=== PATIENT | male | born 1950 | race Hispanic/Latino ===

== ENCOUNTER 2018-08-23 20:55 | Inpatient (IN) | payer MEDICARE, OTHER ==
[2018-08-23 21:49] VITALS: BMI 26.6
[2018-08-23 22:38] LABS: BASO # 0.02 K/mm3 (0.0-2.0); BASO % 0.2 % (0.0-3.0); EOS % 0.1 % (1.5-5.0); HEMOGLOBIN 10.2 g/dL (14.0-18.0); LYMPH # 0.9 (1.2-3.4); LYMPH % 7.6 % (22.0-35.0); MEAN CELL VOLUME 89.5 fl (80.0-105.0); MEAN CORPUSCULAR HEMOGLOBIN 28.1 pg (25.0-35.0); MEAN CORPUSCULAR HGB CONC 31.4 g/dl (31.0-37.0); MEAN PLATELET VOLUME 9.3 fl (7.0-11.0); MONO # 1.4 (0.1-0.6); MONO % 12.4 % (1.0-6.0); RBC 3.63 10^6/uL (3.5-6.1); RED CELL DISTRIBUTION WIDTH 13.9 % (11.5-14.5); VENOUS BLOOD GAS BASE EXCESS 4.2 mmol/L (0.0-2.0); VENOUS BLOOD GAS PO2 35 mm/Hg (30-55); VENOUS BLOOD PH 7.36 (7.32-7.43); WHITE BLOOD COUNT 11.3 10^3/uL (4.5-11.0)
[2018-08-23 22:46] LABS: INR 1.36; PROTHROMBIN TIME 15.1 SECONDS (9.4-12.5)
[2018-08-23 22:48] LABS: ALB/GLOB RATIO 0.7 (1.1-1.8); ALBUMIN 3.3 g/dL (3.0-4.8); BLOOD UREA NITROGEN 22 mg/dL (7-21); CALCIUM 8.8 mg/dL (8.4-10.5); GFR NON-AFRICAN AMERICAN > 60
[2018-08-23 22:58] LABS: ALT/SGPT 54 U/L (7-56); AST/SGOT 163 U/L (17-59)
[2018-08-23 22:59] LABS: PARTIAL THROMBOPLASTIN TIME 27.9 Seconds (26.9-38.3)
[2018-08-23] MEDS ORDERED: Vancomycin 1gm in NS 250ml 1 GM/250 ML BAG IVPB STA (23:08)
[2018-08-23] MEDS ORDERED: Sodium Chloride 0.9% 1,000 ML IV STA (23:37)
--- NOTE | 2018-08-23 23:47 | ED PDOC ---
Arrival/HPI - General Time Seen by Provider: 08/23/18 21:01 Historian: Patient - History of Present Illness Narrative History of Present Illness (Text): 08/23/18 23:43 68 year old male, whose past medical history includes chronic back pain and vertebral disc disease, presents to the emergency department complaining of infected skin ulcers. Patient states he has not seen his doctor in a number of years. Patient states that he has a history of previous fall weeks ago. Patient states he is able to ambulate but is afraid to for fear of falling. Patient appears mostly bedridden. Patient informs of pain to the sacral and thigh area at ulcer sites. Patient states he has no other medical problems. Patient denies any headache, neck pain, back pain, fever, chills, chest pain, shortness of breath, or any other complaints. Time/Duration: Prior to Arrival, < month Symptom Onset: Gradual Symptom Course: Unchanged Context: Home Past Medical History - Provider Review Nursing Documentation Reviewed: Yes - Cardiac Hx Cardiac Disorders: No Hx Hypertension: No Hx Pacemaker: No - Pulmonary Hx Respiratory Disorders: No Hx Asthma: No Hx Chronic Obstructive Pulmonary Disease (COPD): No Hx Emphysema: No - Neurological HX Cerebrovascular Accident: No Hx Dementia: No Hx Seizures: No - Renal Hx Renal Disorder: No - Hematological/Oncological Hx Cancer: No - Musculoskeletal/Rheumatological Hx Musculoskeletal Disorders: Yes - Gastrointestinal Hx Gastroesophageal Reflux: No - Psychiatric Hx Depression: No Hx Emotional Abuse: No Hx Physical Abuse: No Hx Substance Use: No - Suicidal Assessment Feels Threatened In Home Enviroment: No Family/Social History - Physician Review Nursing Documentation Reviewed: Yes Family/Social History: No Known Family HX Hx Alcohol Use: Yes (socially) Hx Substance Use: No Hx Substance Use Treatment: No Allergies/Home Meds Allergies/Adverse Reactions: Allergies Penicillins Allergy (Verified 08/23/18 21:25) RASH Review of Systems - Physician Review All systems were reviewed & negative as marked: Yes - Review of Systems Constitutional: absent: Fevers Respiratory: absent: SOB Cardiovascular: absent: Chest Pain Musculoskeletal: absent: Back Pain, Neck Pain Skin: Ulcer Neurological: absent: Headache Physical Exam Vital Signs Reviewed: Yes Vital Signs Temp Pulse Resp BP Pulse Ox 08/23/18 22:47 97.9 F 114 H 18 112/60 93 L Temperature: Afebrile Blood Pressure: Normal Pulse: Tachycardic Respiratory Rate: Normal Appearance: Positive for: Non-Toxic, Comfortable, Unkept, Other (poor habitus) Pain Distress: None Mental Status: Positive for: Alert and Oriented X 3 - Systems Exam Head: Present: Atraumatic, Normocephalic Pupils: Present: PERRL Extroacular Muscles: Present: EOMI Conjunctiva: Present: Normal Mouth: Present: Moist Mucous Membranes Neck: Present: Normal Range of Motion Respiratory/Chest: Present: Clear to Auscultation, Good Air Exchange. No: Respiratory Distress, Accessory Muscle Use Cardiovascular: Present: Normal S1, S2, Tachycardic. No: Murmurs Abdomen: No: Tenderness, Distention, Peritoneal Signs Back: Present: Decubitus Ulcer (Sacral) Upper Extremity: Present: Normal Inspection. No: Cyanosis, Edema Lower Extremity: Present: Normal Inspection, Normal ROM, Other (2 large skin decubiti on the posterior thighs bilaterally, both infected with surrounding erythema) Neurological: Present: GCS=15, CN II-XII Intact, Speech Normal Skin: Present: Warm, Dry, Normal Color. No: Rashes Psychiatric: Present: Alert, Oriented x 3, Normal Insight, Normal Concentration Medical Decision Making ED Course and Treatment: 08/23/18 23:52 Impression: 68 year old male presents with ulcers. Plan: -- CT ABD & Pelvis -- CT Lower EXT X2 -- EKG -- Chest X-ray -- Meropenem -- Vncomycin -- Cultures -- Urinalysis -- Reassess and disposition Prior Visits: Notes and results from previous visits were reviewed. Progress Notes: 08/24/18 00:10 Spoke with the clinical medical transcriptionist and Dr Hernandez who accepts patient for admission - Lab Interpretations Lab Results: pO2 35 mm/Hg (30-55) 08/23/18 10:20 VBG pH 7.36 (7.32-7.43) 08/23/18 10:20 VBG pCO2 55.0 (40-60) 08/23/18 10:20 VBG HCO3 31.1 mmol/l (21-28) H 08/23/18 10:20 VBG Total CO2 32.8 mmol.L (22-28) H 08/23/18 10:20 VBG O2 Sat (Calc) 71.4 % (40-65) H 08/23/18 10:20 VBG Base Excess 4.2 mmol/L (0.0-2.0) H 08/23/18 10:20 VBG Potassium 5.1 mmol/L (3.6-5.2) 08/23/18 10:20 Sodium 132.0 mmol/L (132-148) 08/23/18 10:20 Chloride 99.0 mmol/L (98-107) 08/23/18 10:20 Glucose 105 mg/dl (75-110) 08/23/18 10:20 Lactate 1.9 mmol/L (0.7-2.1) 08/23/18 10:20 FiO2 21.0 % 08/23/18 10:20 PT 15.1 SECONDS (9.4-12.5) H 08/23/18 10:20 INR 1.36 08/23/18 10:20 APTT 27.9 Seconds (26.9-38.3) 08/23/18 10:20 Total Bilirubin 0.9 mg/dL (0.2-1.3) 08/23/18 10:20 AST 163 U/L (17-59) H 08/23/18 10:20 ALT 54 U/L (7-56) 08/23/18 10:20 Alkaline Phosphatase 134 U/L (38-126) H 08/23/18 10:20 Total Protein 8.1 g/dL (5.8-8.3) 08/23/18 10:20 Albumin 3.3 g/dL (3.0-4.8) 08/23/18 10:20 Globulin 4.8 gm/dL 08/23/18 10:20 Albumin/Globulin Ratio 0.7 (1.1-1.8) L 08/23/18 10:20 - RAD Interpretation Radiology Orders: 08/23/18 21:37 CHEST PORTABLE [RAD] Stat 08/23/18 23:28 ABD & PELVIS W/O PO OR IV CONT [CT] Stat 08/23/18 23:29 EXT LOWER W/O CONTRAST LEFT [CT] Stat EXT LOWER W/O CONTRAST RIGHT [CT] Stat - Medication Orders Current Medication Orders: Vancomycin HCl (Vancomycin 1gm) 1 gm in 250 mls @ 133.333 mls/hr IVPB STAT STA; Protocol Stop: 08/24/18 01:00 Meropenem (Merrem Iv 1 Gm Premix) 1 gm in 50 mls @ 12.5 mls/hr IVPB ONCE ONE; Protocol Stop: 08/24/18 03:25 Sodium Chloride (Sodium Chloride 0.9%) 1,000 mls @ 100 mls/hr IV .Q10H STA Stop: 08/24/18 09:36 - Scribe Statement The provider has reviewed the documentation as recorded by the Afshanibagueda Forde Provider Scribe Attestation: All medical record entries made by the Afshanibagueda were at my direction and personal ly dictated by me. I have reviewed the chart and agree that the record accurately reflects my personal performance of the history, physical exam, medical decision making, and the department course for this patient. I have also personally directed, reviewed, and agree with the discharge instructions and disposition. Disposition/Present on Arrival - Present on Arrival Any Indicators Present on Arrival: No History of DVT/PE: No History of Uncontrolled Diabetes: No Urinary Catheter: No History of Decub. Ulcer: Yes History Surgical Site Infection Following: None - Disposition Have Diagnosis and Disposition been Completed?: Yes Diagnosis: Cellulitis, Infected decubitus ulcer Disposition: HOSPITALIZED Disposition Time: 23:35 Condition: GOOD
[2018-08-24] MEDS ORDERED: Lactated Ringer's 1,000 ML IV SCH (00:15)
[2018-08-24] MEDS: Meropenem IV 1 gm in NS 1 GM/50 ML BAG IVPB ONE (00:35)
[2018-08-24 01:17] LABS: HDL CHOLESTEROL 26 mg/dL (29-60); URIC ACID 4.6 mg/dL (3.5-8.5)
[2018-08-24 01:25] LABS: TOTAL IRON BINDING CAPACITY 234 ug/dL (261-462)
[2018-08-24 01:27] LABS: LDL CHOLESTEROL 72 mg/dL (0-129)
[2018-08-24 01:33] LABS: % IRON SATURATION 9 % (20-55); IRON 22 ug/dL (45-180)
[2018-08-24 01:36] LABS: FREE T4 1.88 ng/dL (0.78-2.19)
--- NOTE | 2018-08-24 02:08 | CP.PCM.HP ---
History of Present Illness - History of Present Illness History of Present Illness: Medicine History and Physical for Dr. David Dixon, PGY-1 This is a 68 y o male with PMhx chronic back pain and vertebral disc disease who presents to the ED c/o infected skin ulcers and b/l foot pain worsening for the past 3 weeks. States that he has hx of chronic rash and dry skin to his feet and states that in the past they only hurt while walking, now states that that pain is present even at rest with his legs elevated. Denies hx trauma or recent falls that may have elicited symptoms. States pain starts in his feet b/l and travels superiorly up his legs b/l to below the knees. Admits to associated pedal edema that has been worsening for the past several weeks as well. States that he has not followed up with a primary doctor in years. States he only follows with Dr. Magallon regularly for pain management. States he is sedentary for long periods of time at home and does not ambulate that much at home due to the pain. Denies bleeding or pus coming out from affected ulcers on his feet. Denies fever, chills, chest pain, sob, n/v/d/c, abd pain, urinary complaints, or other symptoms. Also admits to decreased PO appetite for the past several days. PMhx: Chronic back pain, vertebral disc disease PSurgHx: L ear surgery in early 30s (pt does not know why he had this procedure done) Allergies: PCN (unknown as per pt) Home meds: Prescribed Morphine by pain management doctor for pain Fam hx: Dad from cancer in lymph nodes Soc hx: Smokes 1/2-1 ppd x 60 y, occasional marijuana use; denies EtOH or other illicit drug use. Not working currently, used to work as social and human services assistant, lives in second floor apartment alone PMD: none Present on Admission - Present on Admission Any Indicators Present on Admission: Yes History of DVT/PE: No History of Uncontrolled Diabetes: No Urinary Catheter: No Decubitus Ulcer Present: Yes Decubitus Ulcer Location: b/l gluteal areas, b/l posterior upper thighs proximal to popliteal region Decubitus Ulcer Stage: III Review of Systems - Constitutional Constitutional: Fatigue. absent: Chills, Fever, Night Sweats - Cardiovascular Cardiovascular: Pedal Edema. absent: Chest Pain, Dyspnea on Exertion - Respiratory Respiratory: absent: Cough, Dyspnea, Dyspnea on Exertion, Wheezing, Chest Congestion - Gastrointestinal Gastrointestinal: absent: Abdominal Pain, Constipation, Diarrhea, Nausea, Vomiting - Genitourinary Genitourinary: absent: Change in Urinary Stream, Difficulty Urinating, Dysuria, Urinary Urgency - Musculoskeletal Musculoskeletal: Arthralgias, Joint Swelling, Radiating Pain into Limb, Stiffness - Integumentary Integumentary: Dry Skin, Rash, Skin Ulcer Past Patient History - Past Social History Chewing Tobacco Use: No - CARDIAC Hx Cardiac Disorders: No Hx Hypertension: No Hx Pacemaker: No - PULMONARY Hx Respiratory Disorders: No Hx Asthma: No Hx Chronic Obstructive Pulmonary Disease (COPD): No Hx Emphysema: No - NEUROLOGICAL HX Cerebrovascular Accident: No Hx Dementia: No Hx Seizures: No - RENAL Hx Chronic Kidney Disease: No - HEMATOLOGICAL/ONCOLOGICAL Hx Cancer: No - MUSCULOSKELETAL/RHEUMATOLOGICAL Hx Musculoskeletal Disorders: Yes - GASTROINTESTINAL Hx Gastroesophageal Reflux: No - PSYCHIATRIC Hx Depression: No Hx Emotional Abuse: No Hx Physical Abuse: No Hx Substance Use: No Meds Allergies/Adverse Reactions: Allergies Allergy/AdvReac Type Severity Reaction Status Date / Time Penicillins Allergy RASH Verified 08/23/18 21:25 Physical Exam - Constitutional Appears: Non-toxic, No Acute Distress, Unkempt - Head Exam Head Exam: ATRAUMATIC, NORMOCEPHALIC - Eye Exam Eye Exam: EOMI, Normal appearance, PERRL - ENT Exam ENT Exam: Mucous Membranes Moist - Respiratory Exam Respiratory Exam: Clear to Auscultation Bilateral, NORMAL BREATHING PATTERN. absent: Rales, Rhonchi, Wheezes - Cardiovascular Exam Cardiovascular Exam: Tachycardia, +S1, +S2. absent: Gallop, Rubs, Systolic Murmur - GI/Abdominal Exam GI & Abdominal Exam: Normal Bowel Sounds, Soft. absent: Distended, Guarding, Organomegaly, Rigid, Tenderness - Extremities Exam Extremities exam: Positive for: full ROM, normal capillary refill, pedal edema, pedal pulses present. Negative for: calf tenderness - Back Exam Back exam: FULL ROM, NORMAL INSPECTION. absent: paraspinal tenderness - Skin Additional comments: Numerous decubitus ulcers noted on skin exam; b/l stage 3 ulcers noted on b/l gluteal areas surrounded by erythema 8-9 cm each in size, clear drainage noted, no pus noted on exam; b/l stage 3 ulcers noted on posterior upper thighs proximal to popliteal region with clear drainage no pus noted; stage 1 pressure ulcers noted PIP of L big toe and ball of medial plantar area of L foot Results - Vital Signs Recent Vital Signs: Last Vital Signs Temp 97.9 F 08/23/18 22:47 Pulse 114 H 08/23/18 22:47 Resp 18 08/23/18 22:47 BP 112/60 08/23/18 22:47 Pulse Ox 93 L 08/23/18 22:47 - Labs Result Diagrams: 08/23/18 22:20 08/23/18 22:20 Labs: Laboratory Results - last 24 hr 08/23/18 08/23/18 08/23/18 22:20 22:20 22:20 WBC 11.3 H RBC 3.63 Hgb 10.2 L Hct 32.5 L MCV 89.5 MCH 28.1 MCHC 31.4 RDW 13.9 Plt Count 349 MPV 9.3 Neut % (Auto) 79.7 H Lymph % (Auto) 7.6 L [place] % (Auto) 12.4 H Eos % (Auto) 0.1 L Baso % (Auto) 0.2 Lymph # (Auto) 0.9 L [place] # (Auto) 1.4 H Eos # (Auto) 0.0 Baso # (Auto) 0.02 Absolute Neuts (auto) 8.98 H Retic Count PT 15.1 H INR 1.36 APTT 27.9 pO2 35 VBG pH 7.36 VBG pCO2 55.0 VBG HCO3 31.1 H VBG Total CO2 32.8 H VBG O2 Sat (Calc) 71.4 H VBG Base Excess 4.2 H VBG Potassium 5.1 Sodium 132.0 Chloride 99.0 Glucose 105 Lactate 1.9 FiO2 21.0 Potassium Carbon Dioxide Anion Gap BUN Creatinine Est GFR ( Amer) Est GFR (Non-Af Amer) Random Glucose Uric Acid Calcium Phosphorus Magnesium Iron TIBC % Saturation Total Bilirubin AST ALT Alkaline Phosphatase Total Creatine Kinase Total Protein Albumin Globulin Albumin/Globulin Ratio Triglycerides Cholesterol LDL Cholesterol Direct HDL Cholesterol Prostate Specific Ag Free T4 Thyroxine (T4) TSH 3rd Generation Venous Blood Potassium 5.1 08/23/18 08/23/18 08/23/18 22:20 22:20 22:20 WBC RBC Hgb Hct MCV MCH MCHC RDW Plt Count MPV Neut % (Auto) Lymph % (Auto) [place] % (Auto) Eos % (Auto) Baso % (Auto) Lymph # (Auto) [place] # (Auto) Eos # (Auto) Baso # (Auto) Absolute Neuts (auto) Retic Count PT INR APTT pO2 VBG pH VBG pCO2 VBG HCO3 VBG Total CO2 VBG O2 Sat (Calc) VBG Base Excess VBG Potassium Sodium 134 Chloride 97 L Glucose Lactate FiO2 Potassium 4.8 Carbon Dioxide 30 Anion Gap 13 BUN 22 H Creatinine 0.6 L Est GFR ( Amer) > 60 Est GFR (Non-Af Amer) > 60 Random Glucose 108 Uric Acid 4.6 Calcium 8.8 Phosphorus 4.2 Magnesium 1.8 Iron 22 L TIBC 234 L % Saturation 9 L Total Bilirubin 0.9 AST 163 H ALT 54 Alkaline Phosphatase 134 H Total Creatine Kinase 24 L Total Protein 8.1 Albumin 3.3 Globulin 4.8 Albumin/Globulin Ratio 0.7 L Triglycerides 65 Cholesterol 116 L LDL Cholesterol Direct 72 HDL Cholesterol 26 L Prostate Specific Ag Free T4 Thyroxine (T4) TSH 3rd Generation Venous Blood Potassium 08/23/18 08/23/18 22:20 22:20 WBC RBC Hgb Hct MCV MCH MCHC RDW Plt Count MPV Neut % (Auto) Lymph % (Auto) [place] % (Auto) Eos % (Auto) Baso % (Auto) Lymph # (Auto) [place] # (Auto) Eos # (Auto) Baso # (Auto) Absolute Neuts (auto) Retic Count 0.73 PT INR APTT pO2 VBG pH VBG pCO2 VBG HCO3 VBG Total CO2 VBG O2 Sat (Calc) VBG Base Excess VBG Potassium Sodium Chloride Glucose Lactate FiO2 Potassium Carbon Dioxide Anion Gap BUN Creatinine Est GFR ( Amer) Est GFR (Non-Af Amer) Random Glucose Uric Acid Calcium Phosphorus Magnesium Iron TIBC % Saturation Total Bilirubin AST ALT Alkaline Phosphatase Total Creatine Kinase Total Protein Albumin Globulin Albumin/Globulin Ratio Triglycerides Cholesterol LDL Cholesterol Direct HDL Cholesterol Prostate Specific Ag < 0.1 Free T4 1.88 Thyroxine (T4) 8.6 TSH 3rd Generation 0.08 L Venous Blood Potassium Assessment & Plan - Assessment and Plan (Free Text) Assessment: This is a 68 y o male with PMhx chronic back pain and vertebral disc disease who presents to the ED c/o infected skin ulcers and b/l foot pain worsening for the past 3 weeks. Admitted for management of cellulitis, infected decubitus ulcers. Plan: Cellulitis -Admit to med/surg -ID consulted (Dr. Siegel), recs appreciated -General Surgery consulted for wound care for infected skin ulcers (Dr. Harvey), recs appreciated -S/p Merrem and Vanco, c/w Merrem q8h IVPB -Tylenol prn for pain and fevers -CT abd/pelvis and LE CT done, f/u results -CXR on admission demonstrates no active disease -WBC 11.3 on admission -Blood, urine, wound cxs pending -HIV, RPR, procal pending -Hepatitis panel ordered -PT eval pending -IVF at 100 cc/hr -Regular diet Transaminitis -AST 163, ALT 54 on admission -Hepatitis panel, HIV pending -CT abd/pelvis results pending Anemia -H/H 10.2/32.5 on admission -Pending B12, folate, iron studies Venous stasis -Etiology unknown at this time, pt denies prior cardiac history -Duplex LE venous and arterial b/l pending PPX: Heparin/Protonix Further recommendations as per Dr. Hernandez, attending physician. Corona Dixon DO PGY-1, Office Support Clerk Pager #[phone]
[2018-08-24] MEDS: Pantoprazole 40 mg EC Tab PO SCH (05:47)
[2018-08-24] MEDS ORDERED: MEROPENEM 500 MG in NS 500 MG/50 ML BAG IVPB SCH (06:00)
--- NOTE | 2018-08-24 08:54 | RAD ---
Date of service: 08/23/2018 HISTORY: Sepsis Patient COMPARISON: No prior. FINDINGS: LUNGS: No active pulmonary disease. PLEURA: No significant pleural effusion identified, no pneumothorax apparent. CARDIOVASCULAR: No aortic atherosclerotic calcification present. Normal cardiac size. No pulmonary vascular congestion. OSSEOUS STRUCTURES: No significant abnormalities. VISUALIZED UPPER ABDOMEN: Normal. OTHER FINDINGS: None. IMPRESSION: No active disease.
--- NOTE | 2018-08-24 10:05 | CP.PCM.CON ---
<Asim Lazo - Last Filed: 08/24/18 16:26> History of Present Illness - History of Present Illness History of Present Illness: General Surgery Consult For Dr. Hravey This is a 68M with chronic pain who presents with back pain and multiple infected decubitus ulcers in different stages of progression. He reports years of leg elevation resulting in chronic back pain that limits his mobility. He reports odorus infected ulcers. Denies chest pain sob or fevers. PMh: Chronic back pain, vertebral disc disease PSH: L ear surgery in early 30s (pt does not know why he had this procedure don e) Allergies: PCN (unknown as per pt) Soc hx: Smokes 1/2-1 ppd x 60 y, occasional marijuana use; denies EtOH or other illicit drug use. Not working currently, used to work as social staff worker, lives in second floor apartment alone Review of Systems - Review of Systems Review of Systems: 12 point review of symptoms conducted and negative except for back pain and multiple ulcersative leasions Past Patient History - Past Social History Chewing Tobacco Use: No - CARDIAC Hx Cardiac Disorders: No Hx Hypertension: No Hx Pacemaker: No - PULMONARY Hx Respiratory Disorders: No Hx Asthma: No Hx Chronic Obstructive Pulmonary Disease (COPD): No Hx Emphysema: No - NEUROLOGICAL HX Cerebrovascular Accident: No Hx Dementia: No Hx Seizures: No - RENAL Hx Chronic Kidney Disease: No - HEMATOLOGICAL/ONCOLOGICAL Hx Cancer: No - INTEGUMENTARY Other/Comment: cellulitis ble - MUSCULOSKELETAL/RHEUMATOLOGICAL Hx Musculoskeletal Disorders: Yes - GASTROINTESTINAL Hx Gastroesophageal Reflux: No - GENITOURINARY/GYNECOLOGICAL Hx Genitourinary Disorders: No - PSYCHIATRIC Hx Depression: No Hx Emotional Abuse: No Hx Physical Abuse: No Hx Substance Use: No - SURGICAL HISTORY Hx Surgeries: No Meds Allergies/Adverse Reactions: Allergies Allergy/AdvReac Type Severity Reaction Status Date / Time Penicillins Allergy RASH Verified 08/23/18 21:25 - Medications Medications: Current Medications Acetaminophen (Tylenol 325mg Tab) 650 mg PO Q6 PRN PRN Reason: TEMP>=99.5F Last Admin: 08/24/18 00:34 Dose: 650 mg Acetaminophen (Tylenol 650 Mg Supp) 650 mg RC Q6H PRN PRN Reason: TEMP>=99.5F Acetylcysteine (Acetylcysteine 20%) 4 ml IH [id number] [facility] Heparin Sodium (Porcine) (Heparin) 5,000 units SC Q8 [facility]; Protocol Last Admin: 08/24/18 05:44 Dose: 5,000 units Meropenem/Sodium Chloride (Merrem Iv 500 Mg/Ns 50 Ml) 500 mg in 50 mls @ 100 mls/hr IVPB Q8 [facility]; Protocol Stop: 08/24/18 14:29 Last Admin: 08/24/18 05:45 Dose: 100 mls/hr Levalbuterol HCl (Xopenex) 0.63 mg IH [id number] [facility] Nicotine (Nicoderm Cq) 1 patch TD DAILY [facility] Ondansetron HCl (Zofran Inj) 4 mg IVP Q4H PRN PRN Reason: Nausea/Vomiting Pantoprazole Sodium (Protonix Ec Tab) 40 mg PO 0600 [facility] Last Admin: 08/24/18 05:47 Dose: 40 mg Polyethylene Glycol (Miralax) 17 gm PO BID [facility] Physical Exam - Constitutional Appears: Non-toxic, No Acute Distress - Head Exam Head Exam: ATRAUMATIC, NORMOCEPHALIC - Eye Exam Eye Exam: EOMI, Normal appearance - ENT Exam ENT Exam: Mucous Membranes Moist - Respiratory Exam Respiratory Exam: NORMAL BREATHING PATTERN - Cardiovascular Exam Cardiovascular Exam: +S1, +S2 - GI/Abdominal Exam GI & Abdominal Exam: Soft. 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, LLE with small stage two ulcers on the hallux, left thigh stage 2 ulcer and stage 4 ulcer and lroight thigh stage 4 ulcer Results - Vital Signs Recent Vital Signs: Last Vital Signs Temp 98.2 F 08/24/18 06:00 Pulse 93 H 08/24/18 06:00 Resp 18 08/24/18 06:00 BP 110/67 08/24/18 06:00 Pulse Ox 96 08/24/18 06:00 - Labs Result Diagrams: 08/23/18 22:20 08/23/18 22:20 Labs: Laboratory Results - last 24 hr 08/23/18 08/23/18 08/23/18 22:20 22:20 22:20 WBC 11.3 H RBC 3.63 Hgb 10.2 L Hct 32.5 L MCV 89.5 MCH 28.1 MCHC 31.4 RDW 13.9 Plt Count 349 MPV 9.3 Neut % (Auto) 79.7 H Lymph % (Auto) 7.6 L [place] % (Auto) 12.4 H Eos % (Auto) 0.1 L Baso % (Auto) 0.2 Lymph # (Auto) 0.9 L [place] # (Auto) 1.4 H Eos # (Auto) 0.0 Baso # (Auto) 0.02 Absolute Neuts (auto) 8.98 H ESR Retic Count PT 15.1 H INR 1.36 APTT 27.9 pO2 35 VBG pH 7.36 VBG pCO2 55.0 VBG HCO3 31.1 H VBG Total CO2 32.8 H VBG O2 Sat (Calc) 71.4 H VBG Base Excess 4.2 H VBG Potassium 5.1 Sodium 132.0 Chloride 99.0 Glucose 105 Lactate 1.9 FiO2 21.0 Potassium Carbon Dioxide Anion Gap BUN Creatinine Est GFR ( Amer) Est GFR (Non-Af Amer) Random Glucose Lactic Acid Uric Acid Calcium Phosphorus Magnesium Iron TIBC % Saturation Total Bilirubin AST ALT Alkaline Phosphatase Total Creatine Kinase Total Protein Albumin Globulin Albumin/Globulin Ratio Triglycerides Cholesterol LDL Cholesterol Direct HDL Cholesterol Prostate Specific Ag Free T4 Thyroxine (T4) TSH 3rd Generation Venous Blood Potassium 5.1 08/23/18 08/23/18 08/23/18 22:20 22:20 22:20 WBC RBC Hgb Hct MCV MCH MCHC RDW Plt Count MPV Neut % (Auto) Lymph % (Auto) [place] % (Auto) Eos % (Auto) Baso % (Auto) Lymph # (Auto) [place] # (Auto) Eos # (Auto) Baso # (Auto) Absolute Neuts (auto) ESR Retic Count PT INR APTT pO2 VBG pH VBG pCO2 VBG HCO3 VBG Total CO2 VBG O2 Sat (Calc) VBG Base Excess VBG Potassium Sodium 134 Chloride 97 L Glucose Lactate FiO2 Potassium 4.8 Carbon Dioxide 30 Anion Gap 13 BUN 22 H Creatinine 0.6 L Est GFR ( Amer) > 60 Est GFR (Non-Af Amer) > 60 Random Glucose 108 Lactic Acid Uric Acid 4.6 Calcium 8.8 Phosphorus 4.2 Magnesium 1.8 Iron 22 L TIBC 234 L % Saturation 9 L Total Bilirubin 0.9 AST 163 H ALT 54 Alkaline Phosphatase 134 H Total Creatine Kinase 24 L Total Protein 8.1 Albumin 3.3 Globulin 4.8 Albumin/Globulin Ratio 0.7 L Triglycerides 65 Cholesterol 116 L LDL Cholesterol Direct 72 HDL Cholesterol 26 L Prostate Specific Ag Free T4 Thyroxine (T4) TSH 3rd Generation Venous Blood Potassium 08/23/18 08/23/18 08/24/18 22:20 22:20 02:00 WBC RBC Hgb Hct MCV MCH MCHC RDW Plt Count MPV Neut % (Auto) Lymph % (Auto) [place] % (Auto) Eos % (Auto) Baso % (Auto) Lymph # (Auto) [place] # (Auto) Eos # (Auto) Baso # (Auto) Absolute Neuts (auto) ESR 110 H Retic Count 0.73 PT INR APTT pO2 VBG pH VBG pCO2 VBG HCO3 VBG Total CO2 VBG O2 Sat (Calc) VBG Base Excess VBG Potassium Sodium Chloride Glucose Lactate FiO2 Potassium Carbon Dioxide Anion Gap BUN Creatinine Est GFR ( Amer) Est GFR (Non-Af Amer) Random Glucose Lactic Acid 1.4 Uric Acid Calcium Phosphorus Magnesium Iron TIBC % Saturation Total Bilirubin AST ALT Alkaline Phosphatase Total Creatine Kinase Total Protein Albumin Globulin Albumin/Globulin Ratio Triglycerides Cholesterol LDL Cholesterol Direct HDL Cholesterol Prostate Specific Ag < 0.1 Free T4 1.88 Thyroxine (T4) 8.6 TSH 3rd Generation 0.08 L Venous Blood Potassium 08/24/18 08/24/18 04:30 08:25 WBC RBC Hgb Hct MCV MCH MCHC RDW Plt Count MPV Neut % (Auto) Lymph % (Auto) [place] % (Auto) Eos % (Auto) Baso % (Auto) Lymph # (Auto) [place] # (Auto) Eos # (Auto) Baso # (Auto) Absolute Neuts (auto) ESR Retic Count PT INR APTT pO2 VBG pH VBG pCO2 VBG HCO3 VBG Total CO2 VBG O2 Sat (Calc) VBG Base Excess VBG Potassium Sodium Chloride Glucose Lactate FiO2 Potassium Carbon Dioxide Anion Gap BUN Creatinine Est GFR ( Amer) Est GFR (Non-Af Amer) Random Glucose Lactic Acid Uric Acid Calcium Phosphorus Magnesium Iron TIBC % Saturation Total Bilirubin AST ALT Alkaline Phosphatase Total Creatine Kinase 22 L < 20 L Total Protein Albumin Globulin Albumin/Globulin Ratio Triglycerides Cholesterol LDL Cholesterol Direct HDL Cholesterol Prostate Specific Ag Free T4 Thyroxine (T4) TSH 3rd Generation Venous Blood Potassium Assessment & Plan - Assessment and Plan (Free Text) Assessment: 68M with multiple decubitus ulcers Frequent position changes Recommend santyl on left thigh decubiti recommend local wound on right posterior thigh decubiti D/W Dr. Wes Lazo PGY3 <Jung Harvey - Last Filed: 08/26/18 10:26> Meds - Medications Medications: Current Medications Acetaminophen (Tylenol 325mg Tab) 650 mg PO Q6 PRN PRN Reason: TEMP>=99.5F Last Admin: 08/25/18 04:15 Dose: 650 mg Acetaminophen (Tylenol 650 Mg Supp) 650 mg RC Q6H PRN PRN Reason: TEMP>=99.5F Acetylcysteine (Acetylcysteine 20%) 4 ml IH [id number] [facility] Last Admin: 08/26/18 07:15 Dose: 4 ml Collagenase (Santyl) 0 gm TOP DAILY [facility] Last Admin: 08/26/18 10:01 Dose: 1 appl Diphenhydramine HCl (Benadryl) 50 mg IVP Q6H PRN PRN Reason: Agitation Heparin Sodium (Porcine) (Heparin) 5,000 units SC Q8 [facility]; Protocol Last Admin: 08/26/18 05:49 Dose: 5,000 units Vancomycin HCl 1.25 gm/ Sodium (Chloride) 250 mls @ 167 mls/hr IVPB Q12 [facility]; Protocol Last Admin: 08/26/18 10:01 Dose: 167 mls/hr Lactated Ringer's (Lactated Ringer's) 1,000 mls @ 100 mls/hr IV .Q10H [facility] Stop: 08/27/18 10:44 Last Admin: 08/26/18 05:49 Dose: 100 mls/hr Iron Sucrose 200 mg/ Sodium (Chloride) 110 mls @ 110 mls/hr IVPB DAILY [facility] Stop: 08/30/18 10:59 Levalbuterol HCl (Xopenex) 0.63 mg IH [id number] [facility] Last Admin: 08/26/18 07:15 Dose: 0.63 mg Lorazepam (Ativan) 1 mg IVP Q6H PRN; Protocol PRN Reason: Anxiety Metoprolol Tartrate (Lopressor) 25 mg PO BRKDIN [facility] Last Admin: 08/26/18 09:35 Dose: 25 mg Morphine Sulfate (Morphine Extended Release Tab) 90 mg PO Q12 [facility] Last Admin: 08/26/18 09:40 Dose: 90 mg Mupirocin (Bactroban Ointment) 0 gm TOP BID [facility] Last Admin: 08/26/18 10:01 Dose: 1 appl Nicotine (Nicoderm Cq) 1 patch TD DAILY [facility] Last Admin: 08/26/18 09:35 Dose: 1 patch Ondansetron HCl (Zofran Inj) 4 mg IVP Q4H PRN PRN Reason: Nausea/Vomiting Pantoprazole Sodium (Protonix Ec Tab) 40 mg PO 0600 [facility] Last Admin: 08/26/18 05:49 Dose: 40 mg Polyethylene Glycol (Miralax) 17 gm PO BID [facility] Last Admin: 08/26/18 09:36 Dose: 17 gm Results - Vital Signs Recent Vital Signs: Last Vital Signs Temp 98.2 F 08/26/18 06:00 Pulse 96 H 08/26/18 09:35 Resp 18 08/26/18 06:00 BP 123/65 08/26/18 09:35 Pulse Ox 98 08/25/18 21:30 - Labs Result Diagrams: 08/26/18 06:50 08/26/18 06:50 Labs: Laboratory Results - last 24 hr 08/24/18 08/24/18 08/25/18 02:00 02:00 08:31 WBC RBC Hgb Hct MCV MCH MCHC RDW Plt Count MPV Neut % (Auto) Lymph % (Auto) [place] % (Auto) Eos % (Auto) Baso % (Auto) Lymph # (Auto) [place] # (Auto) Eos # (Auto) Baso # (Auto) Absolute Neuts (auto) ESR Sodium Potassium Chloride Carbon Dioxide Anion Gap BUN Creatinine Est GFR ( Amer) Est GFR (Non-Af Amer) Random Glucose Calcium Phosphorus Magnesium Iron TIBC % Saturation Erythropoietin 21.3 H Total Bilirubin Direct Bilirubin AST ALT Alkaline Phosphatase Total Protein Albumin Globulin Albumin/Globulin Ratio HIV 1&2 Ag/Ab, 4th Gen Nonreactive Blood Type B POSITIVE Blood Type Confirm Antibody Screen Negative Crossmatch See Detail BBK History Checked No verified bt 08/25/18 08/26/18 08/26/18 10:30 06:50 06:50 WBC 5.4 RBC 3.90 Hgb 10.5 L D Hct 34.8 L MCV 89.2 MCH 26.9 MCHC 30.2 L RDW 14.3 Plt Count 277 MPV 9.4 Neut % (Auto) 56.9 Lymph % (Auto) 14.7 L [place] % (Auto) 12.6 H Eos % (Auto) 15.2 H Baso % (Auto) 0.6 Lymph # (Auto) 0.8 L [place] # (Auto) 0.7 H Eos # (Auto) 0.8 H Baso # (Auto) 0.03 Absolute Neuts (auto) 3.07 ESR Sodium 134 Potassium 5.5 H Chloride 103 Carbon Dioxide 30 Anion Gap 6 L BUN 15 Creatinine 0.7 L Est GFR ( Amer) > 60 Est GFR (Non-Af Amer) > 60 Random Glucose 85 Calcium 8.3 L Phosphorus 3.9 Magnesium 1.8 Iron TIBC % Saturation Erythropoietin Total Bilirubin 0.4 Direct Bilirubin 0.3 AST 51 ALT 25 Alkaline Phosphatase 107 Total Protein 6.0 Albumin 2.5 L Globulin 3.6 Albumin/Globulin Ratio 0.7 L HIV 1&2 Ag/Ab, 4th Gen Blood Type Blood Type Confirm B POSITIVE Antibody Screen Crossmatch BBK History Checked 08/26/18 08/26/18 08:30 08:30 WBC RBC Hgb Hct MCV MCH MCHC RDW Plt Count MPV Neut % (Auto) Lymph % (Auto) [place] % (Auto) Eos % (Auto) Baso % (Auto) Lymph # (Auto) [place] # (Auto) Eos # (Auto) Baso # (Auto) Absolute Neuts (auto) ESR 105 H Sodium Potassium Chloride Carbon Dioxide Anion Gap BUN Creatinine Est GFR ( Amer) Est GFR (Non-Af Amer) Random Glucose Calcium Phosphorus Magnesium Iron 39 L TIBC 194 L % Saturation 20 Erythropoietin Total Bilirubin Direct Bilirubin AST ALT Alkaline Phosphatase Total Protein Albumin Globulin Albumin/Globulin Ratio HIV 1&2 Ag/Ab, 4th Gen Blood Type Blood Type Confirm Antibody Screen Crossmatch BBK History Checked Assessment & Plan - Assessment and Plan (Free Text) Plan: dX MULTIPLE DECUBITI/Drug dependent This consult done under my direct supervision Wilmar Harvey MD FACS
[2018-08-24] MEDS ORDERED: Vancomycin 1.25 GM in Sodium Chloride 0.9% 500 ML IVPB SCH (10:15)
[2018-08-24] MEDS: POLYETHYLENE GLYCOL 3350 17 GM/Dose PACKET PO SCH ×2 (10:32→19:00)
[2018-08-24] MEDS: Morphine 2 mg/ml ISec IVP PRN ×2 (10:34→15:31)
--- NOTE | 2018-08-24 12:06 | CARD ---
APPROVED REPORT Date of service: 08/24/2018 EKG Measurement Heart [id number] <Conclusion> Sinus tachycardia Right bundle branch block Abnormal ECG
[2018-08-24 12:56] LABS: HEPATITIS B SURFACE AG Negative (NEGATIVE)
--- NOTE | 2018-08-24 12:57 | CP.PCM.CON ---
<Kishor Liu - Last Filed: 08/24/18 12:54> History of Present Illness - History of Present Illness History of Present Illness: Podiatry consult note for Dr. Lloyd 68 y/o male with PMHx chronic back pain and vertebral disc disease seen and evaluated for infected skin ulcers and b/l foot pain worsening for the past 3 weeks. Patient states that he has hx of chronic rash and dry skin to his feet and states that in the past they only hurt while walking, now states that that pain is present even at rest with his legs elevated. Patient does not ambulate that much at home due to the pain. Patient lethargic and drowsy when evaluated, and unable to obtain proper history. PMhx: Chronic back pain, vertebral disc disease PSurgHx: L ear surgery in early 30s (pt does not know why he had this procedure done) Allergies: PCN (unknown as per pt) Home meds: Prescribed Morphine by pain management doctor for pain Fam hx: Dad from cancer in lymph nodes Soc hx: Smokes 1/2-1 ppd x 60 y, occasional marijuana use; denies EtOH or other illicit drug use. Not working currently, used to work as psychiatric social worker, lives in second floor apartment alone PMD: none Review of Systems - Review of Systems All systems: reviewed and no additional remarkable complaints except Review of Systems: As per HPI Past Patient History - Past Social History Chewing Tobacco Use: No - CARDIAC Hx Cardiac Disorders: No Hx Hypertension: No Hx Pacemaker: No - PULMONARY Hx Respiratory Disorders: No Hx Asthma: No Hx Chronic Obstructive Pulmonary Disease (COPD): No Hx Emphysema: No - NEUROLOGICAL HX Cerebrovascular Accident: No Hx Dementia: No Hx Seizures: No - RENAL Hx Chronic Kidney Disease: No - HEMATOLOGICAL/ONCOLOGICAL Hx Cancer: No - INTEGUMENTARY Other/Comment: cellulitis ble - MUSCULOSKELETAL/RHEUMATOLOGICAL Hx Musculoskeletal Disorders: Yes - GASTROINTESTINAL Hx Gastroesophageal Reflux: No - GENITOURINARY/GYNECOLOGICAL Hx Genitourinary Disorders: No - PSYCHIATRIC Hx Depression: No Hx Emotional Abuse: No Hx Physical Abuse: No Hx Substance Use: No - SURGICAL HISTORY Hx Surgeries: No Meds Allergies/Adverse Reactions: Allergies Allergy/AdvReac Type Severity Reaction Status Date / Time Penicillins Allergy RASH Verified 08/23/18 21:25 - Medications Medications: Current Medications Acetaminophen (Tylenol 325mg Tab) 650 mg PO Q6 PRN PRN Reason: TEMP>=99.5F Last Admin: 08/24/18 00:34 Dose: 650 mg Acetaminophen (Tylenol 650 Mg Supp) 650 mg RC Q6H PRN PRN Reason: TEMP>=99.5F Acetylcysteine (Acetylcysteine 20%) 4 ml IH [id number] [facility] Heparin Sodium (Porcine) (Heparin) 5,000 units SC Q8 [facility]; Protocol Last Admin: 08/24/18 05:44 Dose: 5,000 units Meropenem/Sodium Chloride (Merrem Iv 500 Mg/Ns 50 Ml) 500 mg in 50 mls @ 100 mls/hr IVPB Q8 [facility]; Protocol Stop: 08/24/18 14:29 Last Admin: 08/24/18 05:45 Dose: 100 mls/hr Vancomycin HCl 1.25 gm/ Sodium (Chloride) 500 mls @ 167 mls/hr IVPB Q12H [facility]; Protocol Levalbuterol HCl (Xopenex) 0.63 mg IH [id number] [facility] Morphine Sulfate (Morphine) 1 mg IVP Q3H PRN PRN Reason: Pain, severe (8-10) Last Admin: 08/24/18 10:34 Dose: 1 mg Nicotine (Nicoderm Cq) 1 patch TD DAILY [facility] Last Admin: 08/24/18 10:33 Dose: 1 patch Ondansetron HCl (Zofran Inj) 4 mg IVP Q4H PRN PRN Reason: Nausea/Vomiting Pantoprazole Sodium (Protonix Ec Tab) 40 mg PO 0600 [facility] Last Admin: 08/24/18 05:47 Dose: 40 mg Polyethylene Glycol (Miralax) 17 gm PO BID [facility] Last Admin: 08/24/18 10:32 Dose: 17 gm Physical Exam - Constitutional Appears: Well, Non-toxic, No Acute Distress - Head Exam Head Exam: ATRAUMATIC, NORMOCEPHALIC - Extremities Exam Additional comments: Bilateral Lower Extremity Exam VASC: DP and PT non-palpable, TG warm to warm bilaterally, significant lymphedema noted bilaterally, non-pitting NEURO: grossly intact DERM: LEFT- 0.5 cm X 0.5 cm wound noted to submetatarsal 1 head, fibrotic base, minimal drainage, no tunneling, tracking or probe to bone, positive malodor, multiple superficial wounds noted to the lateral aspect of the left ankle with granular skin base, no drainage, no probe to bone, no tunneling or tracking, no malodor, chronic skin trophic changes secondary to long standing peripheral vascular disease RIGHT- significant chronic skin trophic changes secondary to long standing peripheral vascular disease ORTHO: pain with range of motion, and on palpation to the feet and legs bialterally - Neurological Exam Neurological exam: Oriented x3 - Psychiatric Exam Psychiatric exam: Normal Affect, Normal Mood Results - Vital Signs Recent Vital Signs: Last Vital Signs Temp 98.2 F 08/24/18 06:00 Pulse 93 H 08/24/18 06:00 Resp 18 08/24/18 06:00 BP 110/67 08/24/18 06:00 Pulse Ox 96 08/24/18 06:00 - Labs Result Diagrams: 08/23/18 22:20 08/23/18 22:20 Labs: Laboratory Results - last 24 hr 08/23/18 08/23/18 08/23/18 22:20 22:20 22:20 WBC 11.3 H RBC 3.63 Hgb 10.2 L Hct 32.5 L MCV 89.5 MCH 28.1 MCHC 31.4 RDW 13.9 Plt Count 349 MPV 9.3 Neut % (Auto) 79.7 H Lymph % (Auto) 7.6 L Ector % (Auto) 12.4 H Eos % (Auto) 0.1 L Baso % (Auto) 0.2 Lymph # (Auto) 0.9 L Ector # (Auto) 1.4 H Eos # (Auto) 0.0 Baso # (Auto) 0.02 Absolute Neuts (auto) 8.98 H ESR Retic Count PT 15.1 H INR 1.36 APTT 27.9 pO2 35 VBG pH 7.36 VBG pCO2 55.0 VBG HCO3 31.1 H VBG Total CO2 32.8 H VBG O2 Sat (Calc) 71.4 H VBG Base Excess 4.2 H VBG Potassium 5.1 Sodium 132.0 Chloride 99.0 Glucose 105 Lactate 1.9 FiO2 21.0 Potassium Carbon Dioxide Anion Gap BUN Creatinine Est GFR ( Amer) Est GFR (Non-Af Amer) Random Glucose Hemoglobin A1c Lactic Acid Uric Acid Calcium Phosphorus Magnesium Iron TIBC % Saturation Total Bilirubin AST ALT Alkaline Phosphatase Total Creatine Kinase C-React Prot High Sens Total Protein Albumin Globulin Albumin/Globulin Ratio Triglycerides Cholesterol LDL Cholesterol Direct HDL Cholesterol Prostate Specific Ag 25-OH Vitamin D Total Procalcitonin Free T4 Thyroxine (T4) TSH 3rd Generation Venous Blood Potassium 5.1 08/23/18 08/23/18 08/23/18 22:20 22:20 22:20 WBC RBC Hgb Hct MCV MCH MCHC RDW Plt Count MPV Neut % (Auto) Lymph % (Auto) Ector % (Auto) Eos % (Auto) Baso % (Auto) Lymph # (Auto) Ector # (Auto) Eos # (Auto) Baso # (Auto) Absolute Neuts (auto) ESR Retic Count PT INR APTT pO2 VBG pH VBG pCO2 VBG HCO3 VBG Total CO2 VBG O2 Sat (Calc) VBG Base Excess VBG Potassium Sodium 134 Chloride 97 L Glucose Lactate FiO2 Potassium 4.8 Carbon Dioxide 30 Anion Gap 13 BUN 22 H Creatinine 0.6 L Est GFR ( Amer) > 60 Est GFR (Non-Af Amer) > 60 Random Glucose 108 Hemoglobin A1c Lactic Acid Uric Acid 4.6 Calcium 8.8 Phosphorus 4.2 Magnesium 1.8 Iron 22 L TIBC 234 L % Saturation 9 L Total Bilirubin 0.9 AST 163 H ALT 54 Alkaline Phosphatase 134 H Total Creatine Kinase 24 L C-React Prot High Sens Total Protein 8.1 Albumin 3.3 Globulin 4.8 Albumin/Globulin Ratio 0.7 L Triglycerides 65 Cholesterol 116 L LDL Cholesterol Direct 72 HDL Cholesterol 26 L Prostate Specific Ag 25-OH Vitamin D Total Procalcitonin Free T4 Thyroxine (T4) TSH 3rd Generation Venous Blood Potassium 08/23/18 08/23/18 08/24/18 22:20 22:20 02:00 WBC RBC Hgb Hct MCV MCH MCHC RDW Plt Count MPV Neut % (Auto) Lymph % (Auto) Ector % (Auto) Eos % (Auto) Baso % (Auto) Lymph # (Auto) Ector # (Auto) Eos # (Auto) Baso # (Auto) Absolute Neuts (auto) ESR 110 H Retic Count 0.73 PT INR APTT pO2 VBG pH VBG pCO2 VBG HCO3 VBG Total CO2 VBG O2 Sat (Calc) VBG Base Excess VBG Potassium Sodium Chloride Glucose Lactate FiO2 Potassium Carbon Dioxide Anion Gap BUN Creatinine Est GFR ( Amer) Est GFR (Non-Af Amer) Random Glucose Hemoglobin A1c Lactic Acid Uric Acid Calcium Phosphorus Magnesium Iron TIBC % Saturation Total Bilirubin AST ALT Alkaline Phosphatase Total Creatine Kinase C-React Prot High Sens > 15.00 H Total Protein Albumin Globulin Albumin/Globulin Ratio Triglycerides Cholesterol LDL Cholesterol Direct HDL Cholesterol Prostate Specific Ag < 0.1 25-OH Vitamin D Total Procalcitonin 0.14 L Free T4 1.88 Thyroxine (T4) 8.6 TSH 3rd Generation 0.08 L Venous Blood Potassium 08/24/18 08/24/18 08/24/18 02:00 02:00 02:00 WBC RBC Hgb Hct MCV MCH MCHC RDW Plt Count MPV Neut % (Auto) Lymph % (Auto) Ector % (Auto) Eos % (Auto) Baso % (Auto) Lymph # (Auto) Ector # (Auto) Eos # (Auto) Baso # (Auto) Absolute Neuts (auto) ESR Retic Count PT INR APTT pO2 VBG pH VBG pCO2 VBG HCO3 VBG Total CO2 VBG O2 Sat (Calc) VBG Base Excess VBG Potassium Sodium Chloride Glucose Lactate FiO2 Potassium Carbon Dioxide Anion Gap BUN Creatinine Est GFR ( Amer) Est GFR (Non-Af Amer) Random Glucose Hemoglobin A1c 6.4 Lactic Acid 1.4 Uric Acid Calcium Phosphorus Magnesium Iron TIBC % Saturation Total Bilirubin AST ALT Alkaline Phosphatase Total Creatine Kinase C-React Prot High Sens Total Protein Albumin Globulin Albumin/Globulin Ratio Triglycerides Cholesterol LDL Cholesterol Direct HDL Cholesterol Prostate Specific Ag 25-OH Vitamin D Total 19.8 L Procalcitonin Free T4 Thyroxine (T4) TSH 3rd Generation Venous Blood Potassium 08/24/18 08/24/18 04:30 08:25 WBC RBC Hgb Hct MCV MCH MCHC RDW Plt Count MPV Neut % (Auto) Lymph % (Auto) Ector % (Auto) Eos % (Auto) Baso % (Auto) Lymph # (Auto) Ector # (Auto) Eos # (Auto) Baso # (Auto) Absolute Neuts (auto) ESR Retic Count PT INR APTT pO2 VBG pH VBG pCO2 VBG HCO3 VBG Total CO2 VBG O2 Sat (Calc) VBG Base Excess VBG Potassium Sodium Chloride Glucose Lactate FiO2 Potassium Carbon Dioxide Anion Gap BUN Creatinine Est GFR ( Amer) Est GFR (Non-Af Amer) Random Glucose Hemoglobin A1c Lactic Acid Uric Acid Calcium Phosphorus Magnesium Iron TIBC % Saturation Total Bilirubin AST ALT Alkaline Phosphatase Total Creatine Kinase 22 L < 20 L C-React Prot High Sens Total Protein Albumin Globulin Albumin/Globulin Ratio Triglycerides Cholesterol LDL Cholesterol Direct HDL Cholesterol Prostate Specific Ag 25-OH Vitamin D Total Procalcitonin Free T4 Thyroxine (T4) TSH 3rd Generation Venous Blood Potassium Assessment & Plan - Assessment and Plan (Free Text) Assessment: 68 y/o male patient seen and evaluated for left lower extremity wound, and bilateral LE venous stasis dermatitis Plan: Patient seen and evaluated Discussed in detail with Dr. Lloyd Afebrile, positive leukocytosis of 11.3 Bilateral foot x-ray ordered Arterial duplex studies ordered Vascular consult placed, recommendations appreciated Left foot MRI ordered to r/o osteomyelitis Obtained Left foot wound cultures Continue IV Abx Infection Disease consult, recommendations appreciated Wound cleansed with saline and dressed with maxorb, ABD, DSD Thank you for the consult Podiatry will continue to follow patient while in house - Date & Time Date: 08/24/18 Time: 13:17 <Kvng Lloyd - Last Filed: 08/24/18 16:20> Meds - Medications Medications: Current Medications Acetaminophen (Tylenol 325mg Tab) 650 mg PO Q6 PRN PRN Reason: TEMP>=99.5F Last Admin: 08/24/18 00:34 Dose: 650 mg Acetaminophen (Tylenol 650 Mg Supp) 650 mg RC Q6H PRN PRN Reason: TEMP>=99.5F Acetylcysteine (Acetylcysteine 20%) 4 ml IH [id number] [facility] Last Admin: 08/24/18 13:08 Dose: 4 ml Heparin Sodium (Porcine) (Heparin) 5,000 units SC Q8 [facility]; Protocol Last Admin: 08/24/18 15:07 Dose: 5,000 units Vancomycin HCl 1.25 gm/ Sodium (Chloride) 250 mls @ 167 mls/hr IVPB Q12 [facility]; Protocol Levalbuterol HCl (Xopenex) 0.63 mg IH [id number] [facility] Last Admin: 08/24/18 13:09 Dose: 0.63 mg Morphine Sulfate (Morphine) 1 mg IVP Q3H PRN PRN Reason: Pain, severe (8-10) Last Admin: 08/24/18 15:31 Dose: 1 mg Nicotine (Nicoderm Cq) 1 patch TD DAILY [facility] Last Admin: 08/24/18 10:33 Dose: 1 patch Ondansetron HCl (Zofran Inj) 4 mg IVP Q4H PRN PRN Reason: Nausea/Vomiting Pantoprazole Sodium (Protonix Ec Tab) 40 mg PO 0600 [facility] Last Admin: 08/24/18 05:47 Dose: 40 mg Polyethylene Glycol (Miralax) 17 gm PO BID [facility] Last Admin: 08/24/18 10:32 Dose: 17 gm Results - Vital Signs Recent Vital Signs: Last Vital Signs Temp 98.2 F 08/24/18 06:00 Pulse 93 H 08/24/18 06:00 Resp 18 08/24/18 06:00 BP 110/67 08/24/18 06:00 Pulse Ox 96 08/24/18 06:00 - Labs Result Diagrams: 08/23/18 22:20 08/23/18 22:20 Labs: Laboratory Results - last 24 hr 08/23/18 08/23/18 08/23/18 22:20 22:20 22:20 WBC 11.3 H RBC 3.63 Hgb 10.2 L Hct 32.5 L MCV 89.5 MCH 28.1 MCHC 31.4 RDW 13.9 Plt Count 349 MPV 9.3 Neut % (Auto) 79.7 H Lymph % (Auto) 7.6 L Ector % (Auto) 12.4 H Eos % (Auto) 0.1 L Baso % (Auto) 0.2 Lymph # (Auto) 0.9 L Ector # (Auto) 1.4 H Eos # (Auto) 0.0 Baso # (Auto) 0.02 Absolute Neuts (auto) 8.98 H ESR Retic Count PT 15.1 H INR 1.36 APTT 27.9 pO2 35 VBG pH 7.36 VBG pCO2 55.0 VBG HCO3 31.1 H VBG Total CO2 32.8 H VBG O2 Sat (Calc) 71.4 H VBG Base Excess 4.2 H VBG Potassium 5.1 Sodium 132.0 Chloride 99.0 Glucose 105 Lactate 1.9 FiO2 21.0 Potassium Carbon Dioxide Anion Gap BUN Creatinine Est GFR ( Amer) Est GFR (Non-Af Amer) Random Glucose Hemoglobin A1c Lactic Acid Uric Acid Calcium Phosphorus Magnesium Iron TIBC % Saturation Ferritin Total Bilirubin AST ALT Alkaline Phosphatase Total Creatine Kinase C-React Prot High Sens Total Protein Albumin Globulin Albumin/Globulin Ratio Triglycerides Cholesterol LDL Cholesterol Direct HDL Cholesterol Prostate Specific Ag Vitamin B12 25-OH Vitamin D Total Folate Procalcitonin Free T4 Thyroxine (T4) TSH 3rd Generation Venous Blood Potassium 5.1 RPR Hepatitis A IgM Ab Hep Bs Antigen Hep B Core IgM Ab Hepatitis C Antibody 08/23/18 08/23/18 08/23/18 22:20 22:20 22:20 WBC RBC Hgb Hct MCV MCH MCHC RDW Plt Count MPV Neut % (Auto) Lymph % (Auto) Ector % (Auto) Eos % (Auto) Baso % (Auto) Lymph # (Auto) Ector # (Auto) Eos # (Auto) Baso # (Auto) Absolute Neuts (auto) ESR Retic Count PT INR APTT pO2 VBG pH VBG pCO2 VBG HCO3 VBG Total CO2 VBG O2 Sat (Calc) VBG Base Excess VBG Potassium Sodium 134 Chloride 97 L Glucose Lactate FiO2 Potassium 4.8 Carbon Dioxide 30 Anion Gap 13 BUN 22 H Creatinine 0.6 L Est GFR ( Amer) > 60 Est GFR (Non-Af Amer) > 60 Random Glucose 108 Hemoglobin A1c Lactic Acid Uric Acid 4.6 Calcium 8.8 Phosphorus 4.2 Magnesium 1.8 Iron 22 L TIBC 234 L % Saturation 9 L Ferritin 324.0 Total Bilirubin 0.9 AST 163 H ALT 54 Alkaline Phosphatase 134 H Total Creatine Kinase 24 L C-React Prot High Sens Total Protein 8.1 Albumin 3.3 Globulin 4.8 Albumin/Globulin Ratio 0.7 L Triglycerides 65 Cholesterol 116 L LDL Cholesterol Direct 72 HDL Cholesterol 26 L Prostate Specific Ag Vitamin B12 600 25-OH Vitamin D Total Folate > 20.0 Procalcitonin Free T4 Thyroxine (T4) TSH 3rd Generation Venous Blood Potassium RPR Hepatitis A IgM Ab Hep Bs Antigen Hep B Core IgM Ab Hepatitis C Antibody 08/23/18 08/23/18 08/24/18 22:20 22:20 02:00 WBC RBC Hgb Hct MCV MCH MCHC RDW Plt Count MPV Neut % (Auto) Lymph % (Auto) Ector % (Auto) Eos % (Auto) Baso % (Auto) Lymph # (Auto) Ector # (Auto) Eos # (Auto) Baso # (Auto) Absolute Neuts (auto) ESR 110 H Retic Count 0.73 PT INR APTT pO2 VBG pH VBG pCO2 VBG HCO3 VBG Total CO2 VBG O2 Sat (Calc) VBG Base Excess VBG Potassium Sodium Chloride Glucose Lactate FiO2 Potassium Carbon Dioxide Anion Gap BUN Creatinine Est GFR ( Amer) Est GFR (Non-Af Amer) Random Glucose Hemoglobin A1c Lactic Acid Uric Acid Calcium Phosphorus Magnesium Iron TIBC % Saturation Ferritin Total Bilirubin AST ALT Alkaline Phosphatase Total Creatine Kinase C-React Prot High Sens > 15.00 H Total Protein Albumin Globulin Albumin/Globulin Ratio Triglycerides Cholesterol LDL Cholesterol Direct HDL Cholesterol Prostate Specific Ag < 0.1 Vitamin B12 25-OH Vitamin D Total Folate Procalcitonin Free T4 1.88 Thyroxine (T4) 8.6 TSH 3rd Generation 0.08 L Venous Blood Potassium RPR Hepatitis A IgM Ab Negative Hep Bs Antigen Negative Hep B Core IgM Ab Negative Hepatitis C Antibody Negative 08/24/18 08/24/18 08/24/18 02:00 02:00 02:00 WBC RBC Hgb Hct MCV MCH MCHC RDW Plt Count MPV Neut % (Auto) Lymph % (Auto) Ector % (Auto) Eos % (Auto) Baso % (Auto) Lymph # (Auto) Ector # (Auto) Eos # (Auto) Baso # (Auto) Absolute Neuts (auto) ESR Retic Count PT INR APTT pO2 VBG pH VBG pCO2 VBG HCO3 VBG Total CO2 VBG O2 Sat (Calc) VBG Base Excess VBG Potassium Sodium Chloride Glucose Lactate FiO2 Potassium Carbon Dioxide Anion Gap BUN Creatinine Est GFR ( Amer) Est GFR (Non-Af Amer) Random Glucose Hemoglobin A1c Lactic Acid 1.4 Uric Acid Calcium Phosphorus Magnesium Iron TIBC % Saturation Ferritin Total Bilirubin AST ALT Alkaline Phosphatase Total Creatine Kinase C-React Prot High Sens Total Protein Albumin Globulin Albumin/Globulin Ratio Triglycerides Cholesterol LDL Cholesterol Direct HDL Cholesterol Prostate Specific Ag Vitamin B12 25-OH Vitamin D Total Folate Procalcitonin 0.14 L Free T4 Thyroxine (T4) TSH 3rd Generation Venous Blood Potassium RPR Nonreactive Hepatitis A IgM Ab Hep Bs Antigen Hep B Core IgM Ab Hepatitis C Antibody 08/24/18 08/24/18 08/24/18 02:00 02:00 04:30 WBC RBC Hgb Hct MCV MCH MCHC RDW Plt Count MPV Neut % (Auto) Lymph % (Auto) Ector % (Auto) Eos % (Auto) Baso % (Auto) Lymph # (Auto) Ector # (Auto) Eos # (Auto) Baso # (Auto) Absolute Neuts (auto) ESR Retic Count PT INR APTT pO2 VBG pH VBG pCO2 VBG HCO3 VBG Total CO2 VBG O2 Sat (Calc) VBG Base Excess VBG Potassium Sodium Chloride Glucose Lactate FiO2 Potassium Carbon Dioxide Anion Gap BUN Creatinine Est GFR ( Amer) Est GFR (Non-Af Amer) Random Glucose Hemoglobin A1c 6.4 Lactic Acid Uric Acid Calcium Phosphorus Magnesium Iron TIBC % Saturation Ferritin Total Bilirubin AST ALT Alkaline Phosphatase Total Creatine Kinase 22 L C-React Prot High Sens Total Protein Albumin Globulin Albumin/Globulin Ratio Triglycerides Cholesterol LDL Cholesterol Direct HDL Cholesterol Prostate Specific Ag Vitamin B12 25-OH Vitamin D Total 19.8 L Folate Procalcitonin Free T4 Thyroxine (T4) TSH 3rd Generation Venous Blood Potassium RPR Hepatitis A IgM Ab Hep Bs Antigen Hep B Core IgM Ab Hepatitis C Antibody 08/24/18 08:25 WBC RBC Hgb Hct MCV MCH MCHC RDW Plt Count MPV Neut % (Auto) Lymph % (Auto) Ector % (Auto) Eos % (Auto) Baso % (Auto) Lymph # (Auto) Ector # (Auto) Eos # (Auto) Baso # (Auto) Absolute Neuts (auto) ESR Retic Count PT INR APTT pO2 VBG pH VBG pCO2 VBG HCO3 VBG Total CO2 VBG O2 Sat (Calc) VBG Base Excess VBG Potassium Sodium Chloride Glucose Lactate FiO2 Potassium Carbon Dioxide Anion Gap BUN Creatinine Est GFR ( Amer) Est GFR (Non-Af Amer) Random Glucose Hemoglobin A1c Lactic Acid Uric Acid Calcium Phosphorus Magnesium Iron TIBC % Saturation Ferritin Total Bilirubin AST ALT Alkaline Phosphatase Total Creatine Kinase < 20 L C-React Prot High Sens Total Protein Albumin Globulin Albumin/Globulin Ratio Triglycerides Cholesterol LDL Cholesterol Direct HDL Cholesterol Prostate Specific Ag Vitamin B12 25-OH Vitamin D Total Folate Procalcitonin Free T4 Thyroxine (T4) TSH 3rd Generation Venous Blood Potassium RPR Hepatitis A IgM Ab Hep Bs Antigen Hep B Core IgM Ab Hepatitis C Antibody Attending/Attestation - Attestation I have personally seen and examined this patient.: Yes I have fully participated in the care of the patient.: Yes I have reviewed all pertinent clinical information: Yes
--- NOTE | 2018-08-24 13:00 | CT ---
Date of service: 08/24/2018 PROCEDURE: CT Abdomen and Pelvis without intravenous contrast HISTORY: sacral ulcer/skin ulcers COMPARISON: None. TECHNIQUE: Without contrast.. Contrast dose: Radiation dose: Total exam DLP = 619.75 mGy-cm. This CT exam was performed using one or more of the following dose reduction techniques: Automated exposure control, adjustment of the mA and/or kV according to patient size, and/or use of iterative reconstruction technique. FINDINGS: LOWER THORAX: Infiltrate in the left lower lobe, probable pneumonia. There is a small amount of fluid in the right minor fissure. LIVER: Unremarkable. No gross lesion or ductal dilatation. GALLBLADDER AND BILE DUCTS: Unremarkable. PANCREAS: Unremarkable. No gross lesion or ductal dilatation. SPLEEN: Multiple splenic granulomas ADRENALS: Unremarkable. No mass. KIDNEYS AND URETERS: Unremarkable. No hydronephrosis. No solid mass. VASCULATURE: Unremarkable. No aortic aneurysm. No aortic atherosclerotic calcification or mural plaque present. BOWEL: Unremarkable. No obstruction. No gross mural thickening. APPENDIX: Unremarkable. Normal appendix. PERITONEUM: Unremarkable. No free fluid. No free air. LYMPH NODES: Unremarkable. No enlarged lymph nodes. BLADDER: Unremarkable. REPRODUCTIVE: Unremarkable. BONES: Severe degenerative changes in both hips. OTHER FINDINGS: There is a soft tissue ulcer in the right gluteal soft tissues that extends to the ischial tuberosity. Bilateral ischial osteophytes are seen. There is no bony destruction to suggest acute osteomyelitis. The report concurs with the preliminary [facility] report IMPRESSION: There is a soft tissue ulcer in the right gluteal soft tissues that extends to the ischial tuberosity. Bilateral ischial osteophytes are seen. There is no bony destruction to suggest acute osteomyelitis.
[2018-08-24 13:01] LABS: HEPATITIS A IGM NEGATIVE (NEGATIVE); HEPATITIS B CORE AB NEGATIVE (NEGATIVE)
[2018-08-24] MEDS: Acetylcysteine 20% Inhal Soln (4ml) IH SCH ×2 (13:08→19:19)
[2018-08-24] MEDS: Levalbuterol 0.63 MG/3 ML Inhal Soln UD IH SCH ×2 (13:09→19:20)
[2018-08-24 13:13] LABS: HEPATITIS C ANTIBODY NEGATIVE (NEGATIVE)
--- NOTE | 2018-08-24 13:16 | CT ---
Date of service: 08/24/2018 PROCEDURE: CT bilateral lower extremity HISTORY: ulcer/leg pain COMPARISON: Not available TECHNIQUE: 2.5 mm contiguous axial sections were acquired from the mid pelvis through the hips, lower extremities and ankle and feet. Sagittal and coronal images were reformatted from the axial scan No intravenous contrast material was administered. Total exam DLP: 772.51 mGy-cm This CT exam was performed using 1 or more of the following dose reduction techniques: Automated exposure control, adjustment of the mA and/or kV according to patient size, and/or use of iterative reconstruction technique. FINDINGS: There is no acute fracture. There is an old healed fracture of the mid right tibial diaphysis with minimal resulting deformity. 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 No other lytic or blastic osseous lesion. No osseous erosion or periosteal reaction is noted. There is a decubitus ulcer subjacent to the right ischial tuberosity. There is probable cellulitis of the posterior right thigh. There is probable cellulitis of the posterior and lateral left thigh and gluteal region with stranding of the subcutaneous fat bilaterally, left greater than right. There is no evidence of abscess. 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 Flattening and remodeling of the femoral heads is noted. Visualized soft tissues of the inferior pelvis are unremarkable IMPRESSION: No radiographic evidence of osteomyelitis. Right gluteal decubitus ulcer. No abscess bilateral cellulitis of the gluteal region and thigh without evidence of abscess.
[2018-08-24 13:30] LABS: FOLATE > 20.0 ng/mL
--- NOTE | 2018-08-24 13:32 | PN ---
DATE: 08/24/2018 SUBJECTIVE: The patient is seen now in room 562, bed 2. The patient was seen yesterday in bed 11 in the emergency room. The patient is seen lying in the bed. The patient has poor hygiene. PHYSICAL EXAMINATION: VITAL SIGNS: T-max 98.3, heart rate 93, The patient is seen lying in the bed in room 562. Blood pressure 110/67, 111/62, 112/73; respirations 18; O2 sat 94-96% on room air. The patient is seen sitting up in the bed. HEENT AND NECK: Head: Normocephalic, atraumatic. HEENT examination shows pinkish pale conjunctivae. Dry oral mucosa. Poor hygiene. No neck rigidity. CHEST: Kyphosis. LUNGS: Show occasional rhonchi upper lung redman. CARDIOVASCULAR: S1, S2, regular rhythm. ABDOMEN: Soft. Positive bowel sounds. GENITALIA: Male. RECTAL: Deferred. EXTREMITIES: Positive skin changes of the lower extremity noted with chronic venous stasis ulceration noted and dystrophic nodes noted. The patient also has multiple decubitus ulcerations on the gluteal areas and the back with erythema. The patient also has ulcers of the posterior upper thigh and popliteal region of the upper and lower thigh. The patient is noted to have bilateral lower extremity venous ulceration, superficial with skin changes. Gait examination is not tested. MUSCULOSKELETAL: Shows a body mass index of 26. DIAGNOSTICS: CBC from today is pending despite being ordered. The patient's morning labs are pending. All the lab since yesterday was reviewed. IMPRESSION AND PLAN 1. Sacral decubitus ulceration and bilateral posterior thigh ulceration versus superficial abscess. 2. Bilateral lower extremity venous stasis ulceration. 3. Hypotension. 4. Tachycardia. 5. Questionable systemic inflammatory response syndrome. 6. Leukocytosis with granulocytosis. 7. Elevated erythrocyte sedimentation rate of 110. 8. Possible iron-deficiency anemia. 9. Transaminitis. 10. Poor personal hygiene. 11. Possible iron-deficiency anemia. 12. Questionable osteomyelitis of the right ischial tuberosity with heterogeneous periosteal reaction and full-thickness soft tissue ulceration of the right gluteal area. 13. Osteopenia. 14. Moderate to severe chronic degenerative joint disease. 15. Spondylosis of the spine. 16. Bilateral lower extremity venous stasis. 17. 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 18. Deconditioning. 19. Gait dysfunction. 20. Dystrophic toenails of bilateral feet. 21. Questionable left lower lobe pneumonia worse with opacities and airspace infiltration, possible aspiration pneumonia. 22. Calcified splenic granuloma. 23. Fecal stasis. 24. Colonic diverticulosis. 25. Osteopenia. 26. Degenerative joint disease of the spine. 27. Possible left lower lobe aspiration pneumonia. 28. Right gluteal ulcer and cellulitis. 29. History of chronic back pain. 30. Degenerative disc disease of the spine. 31. History of chronic venous stasis ulceration of the lower extremity. 32. 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 33. History of nicotine and marijuana use. 34. Sacral and gluteal decubitus ulceration. 35. Bilateral posterior thigh cellulitis and ulceration. PLAN: At this time, the patient is awaiting for further evaluation by Infectious Disease and Podiatry. At present, the patient has been admitted to [facility]. Awaiting Infectious Disease, Podiatry evaluation and Surgery evaluation. Hepatitis panel has been ordered. B12, folate, repeat serial labs ordered. Repeat CPK ordered. Hemoglobin A1c in the morning. HIV, hepatitis serologies ordered. Blood and urine cultures, wound cultures ordered. Consultation Surgery, Infectious Disease, Podiatry. Procalcitonin level ordered. RPR ordered. CURRENT MEDICATIONS: Mucomyst, Xopenex nebulizer treatment every 6 hours, heparin 5000 subcutaneous every 8 hours. The patient is on Ringer's lactate at 100 ml an hour. The patient is on meropenem 500 IV every 8 hours, MiraLax 17 g twice a day, nicotine patch 21 mg daily, Protonix 40 mg daily. The patient is not on Ringer's lactate. The patient is on normal saline at 100 ml an hour, Tylenol p.o. suppository every 6 hours p.r.n., the patient received a dose of vancomycin 1 g in the ER. The patient is on Zofran 4 mg IV every 4 hours. Venous and arterial Doppler has been ordered. EKG has been ordered. The patient is on regular diet. Physical therapy, occupational therapy, stool for occult blood ordered.. The patient will be ordered an MRI of the pelvis and hips. MRI of the pelvis will be ordered. MRI of the pelvis has been ordered for evaluation of possible ischial osteomyelitis.. At present, the patient has been ordered serial repeat labs. Further management will be depended upon the patient's clinical condition, hemodynamic status and as per the patient's response to therapeutic intervention, as per the patient's diagnostic test results, and as per recommendation by all the physicians involved in the care of the patient. The patient also has been ordered out of bed to chair, physical therapy, occupational therapy. Dictated and electronically signed, not read. Carlos Hernandez MD
--- NOTE | 2018-08-24 14:40 | CP.PCM.CON ---
<Juancho Vides - Last Filed: 08/24/18 14:42> History of Present Illness - History of Present Illness History of Present Illness: Infectious disease consult note: 68-year-old male with past medical history of chronic back pain, vertebral disc disease, presents to the ED with bilateral foot pain and skin ulcers. Patient states that these have been present for months however recently has become more painful. Patient states that he has pain while walking and it is even now during rest. He also complains about increasing drainage from the wounds. He denies seeing any quality audit representative as an outpatient. Patient denies any trauma or falls. He denies any fevers or chills. Infectious disease was consulted for infected ulcerdecubiti. 12 point ROS performed and negative other than stated above PMH: As above PSH: Ear surgery when he was in his 30s Allergies: Penicillin Medications: As per EMR SH: Active smoker of 1 pack/day for 60 years, social marijuana use, denies any drinking FH: Noncontributory Review of Systems - Review of Systems All systems: reviewed and no additional remarkable complaints except Past Patient History - Past Social History Chewing Tobacco Use: No - CARDIAC Hx Cardiac Disorders: No Hx Hypertension: No Hx Pacemaker: No - PULMONARY Hx Respiratory Disorders: No Hx Asthma: No Hx Chronic Obstructive Pulmonary Disease (COPD): No Hx Emphysema: No - NEUROLOGICAL HX Cerebrovascular Accident: No Hx Dementia: No Hx Seizures: No - RENAL Hx Chronic Kidney Disease: No - HEMATOLOGICAL/ONCOLOGICAL Hx Cancer: No - INTEGUMENTARY Other/Comment: cellulitis ble - MUSCULOSKELETAL/RHEUMATOLOGICAL Hx Musculoskeletal Disorders: Yes - GASTROINTESTINAL Hx Gastroesophageal Reflux: No - GENITOURINARY/GYNECOLOGICAL Hx Genitourinary Disorders: No - PSYCHIATRIC Hx Depression: No Hx Emotional Abuse: No Hx Physical Abuse: No Hx Substance Use: No - SURGICAL HISTORY Hx Surgeries: No Meds Allergies/Adverse Reactions: Allergies Allergy/AdvReac Type Severity Reaction Status Date / Time Penicillins Allergy RASH Verified 08/23/18 21:25 - Medications Medications: Current Medications Acetaminophen (Tylenol 325mg Tab) 650 mg PO Q6 PRN PRN Reason: TEMP>=99.5F Last Admin: 08/24/18 00:34 Dose: 650 mg Acetaminophen (Tylenol 650 Mg Supp) 650 mg RC Q6H PRN PRN Reason: TEMP>=99.5F Acetylcysteine (Acetylcysteine 20%) 4 ml IH [id number] [facility] Last Admin: 08/24/18 13:08 Dose: 4 ml Heparin Sodium (Porcine) (Heparin) 5,000 units SC Q8 [facility]; Protocol Last Admin: 08/24/18 05:44 Dose: 5,000 units Vancomycin HCl 1.25 gm/ Sodium (Chloride) 500 mls @ 167 mls/hr IVPB Q12H [facility]; Protocol Last Admin: 08/24/18 13:11 Dose: 167 mls/hr Levalbuterol HCl (Xopenex) 0.63 mg IH [id number] [facility] Last Admin: 08/24/18 13:09 Dose: 0.63 mg Morphine Sulfate (Morphine) 1 mg IVP Q3H PRN PRN Reason: Pain, severe (8-10) Last Admin: 08/24/18 10:34 Dose: 1 mg Nicotine (Nicoderm Cq) 1 patch TD DAILY [facility] Last Admin: 08/24/18 10:33 Dose: 1 patch Ondansetron HCl (Zofran Inj) 4 mg IVP Q4H PRN PRN Reason: Nausea/Vomiting Pantoprazole Sodium (Protonix Ec Tab) 40 mg PO 0600 [facility] Last Admin: 08/24/18 05:47 Dose: 40 mg Polyethylene Glycol (Miralax) 17 gm PO BID [facility] Last Admin: 08/24/18 10:32 Dose: 17 gm Physical Exam - Constitutional Appears: No Acute Distress - Head Exam Head Exam: ATRAUMATIC, NORMOCEPHALIC - Eye Exam Eye Exam: EOMI - ENT Exam ENT Exam: Mucous Membranes Moist - Respiratory Exam Respiratory Exam: Clear to Auscultation Bilateral. absent: Rales, Wheezes - Cardiovascular Exam Cardiovascular Exam: REGULAR RHYTHM, +S1, +S2 - GI/Abdominal Exam GI & Abdominal Exam: Normal Bowel Sounds, Soft. absent: Distended - Extremities Exam Extremities exam: Positive for: pedal edema (1+). Negative for: calf tenderness Additional comments: Bilateral lower extremities dressing in place. Extending area of erythema and edema from the foot extending to the knee. With some drainage noted. - Neurological Exam Neurological exam: Alert, Oriented x3 - Psychiatric Exam Psychiatric exam: Normal Mood - Skin Skin Exam: Warm Results - Vital Signs Recent Vital Signs: Last Vital Signs Temp 98.2 F 08/24/18 06:00 Pulse 93 H 08/24/18 06:00 Resp 18 08/24/18 06:00 BP 110/67 08/24/18 06:00 Pulse Ox 96 08/24/18 06:00 - Labs Result Diagrams: 08/23/18 22:20 08/23/18 22:20 Labs: Laboratory Results - last 24 hr 08/23/18 08/23/18 08/23/18 22:20 22:20 22:20 WBC 11.3 H RBC 3.63 Hgb 10.2 L Hct 32.5 L MCV 89.5 MCH 28.1 MCHC 31.4 RDW 13.9 Plt Count 349 MPV 9.3 Neut % (Auto) 79.7 H Lymph % (Auto) 7.6 L [place] % (Auto) 12.4 H Eos % (Auto) 0.1 L Baso % (Auto) 0.2 Lymph # (Auto) 0.9 L [place] # (Auto) 1.4 H Eos # (Auto) 0.0 Baso # (Auto) 0.02 Absolute Neuts (auto) 8.98 H ESR Retic Count PT 15.1 H INR 1.36 APTT 27.9 pO2 35 VBG pH 7.36 VBG pCO2 55.0 VBG HCO3 31.1 H VBG Total CO2 32.8 H VBG O2 Sat (Calc) 71.4 H VBG Base Excess 4.2 H VBG Potassium 5.1 Sodium 132.0 Chloride 99.0 Glucose 105 Lactate 1.9 FiO2 21.0 Potassium Carbon Dioxide Anion Gap BUN Creatinine Est GFR ( Amer) Est GFR (Non-Af Amer) Random Glucose Hemoglobin A1c Lactic Acid Uric Acid Calcium Phosphorus Magnesium Iron TIBC % Saturation Ferritin Total Bilirubin AST ALT Alkaline Phosphatase Total Creatine Kinase C-React Prot High Sens Total Protein Albumin Globulin Albumin/Globulin Ratio Triglycerides Cholesterol LDL Cholesterol Direct HDL Cholesterol Prostate Specific Ag Vitamin B12 25-OH Vitamin D Total Folate Procalcitonin Free T4 Thyroxine (T4) TSH 3rd Generation Venous Blood Potassium 5.1 RPR Hepatitis A IgM Ab Hep Bs Antigen Hep B Core IgM Ab Hepatitis C Antibody 08/23/18 08/23/18 08/23/18 22:20 22:20 22:20 WBC RBC Hgb Hct MCV MCH MCHC RDW Plt Count MPV Neut % (Auto) Lymph % (Auto) [place] % (Auto) Eos % (Auto) Baso % (Auto) Lymph # (Auto) [place] # (Auto) Eos # (Auto) Baso # (Auto) Absolute Neuts (auto) ESR Retic Count PT INR APTT pO2 VBG pH VBG pCO2 VBG HCO3 VBG Total CO2 VBG O2 Sat (Calc) VBG Base Excess VBG Potassium Sodium 134 Chloride 97 L Glucose Lactate FiO2 Potassium 4.8 Carbon Dioxide 30 Anion Gap 13 BUN 22 H Creatinine 0.6 L Est GFR ( Amer) > 60 Est GFR (Non-Af Amer) > 60 Random Glucose 108 Hemoglobin A1c Lactic Acid Uric Acid 4.6 Calcium 8.8 Phosphorus 4.2 Magnesium 1.8 Iron 22 L TIBC 234 L % Saturation 9 L Ferritin 324.0 Total Bilirubin 0.9 AST 163 H ALT 54 Alkaline Phosphatase 134 H Total Creatine Kinase 24 L C-React Prot High Sens Total Protein 8.1 Albumin 3.3 Globulin 4.8 Albumin/Globulin Ratio 0.7 L Triglycerides 65 Cholesterol 116 L LDL Cholesterol Direct 72 HDL Cholesterol 26 L Prostate Specific Ag Vitamin B12 600 25-OH Vitamin D Total Folate > 20.0 Procalcitonin Free T4 Thyroxine (T4) TSH 3rd Generation Venous Blood Potassium RPR Hepatitis A IgM Ab Hep Bs Antigen Hep B Core IgM Ab Hepatitis C Antibody 08/23/18 08/23/18 08/24/18 22:20 22:20 02:00 WBC RBC Hgb Hct MCV MCH MCHC RDW Plt Count MPV Neut % (Auto) Lymph % (Auto) [place] % (Auto) Eos % (Auto) Baso % (Auto) Lymph # (Auto) [place] # (Auto) Eos # (Auto) Baso # (Auto) Absolute Neuts (auto) ESR 110 H Retic Count 0.73 PT INR APTT pO2 VBG pH VBG pCO2 VBG HCO3 VBG Total CO2 VBG O2 Sat (Calc) VBG Base Excess VBG Potassium Sodium Chloride Glucose Lactate FiO2 Potassium Carbon Dioxide Anion Gap BUN Creatinine Est GFR ( Amer) Est GFR (Non-Af Amer) Random Glucose Hemoglobin A1c Lactic Acid Uric Acid Calcium Phosphorus Magnesium Iron TIBC % Saturation Ferritin Total Bilirubin AST ALT Alkaline Phosphatase Total Creatine Kinase C-React Prot High Sens > 15.00 H Total Protein Albumin Globulin Albumin/Globulin Ratio Triglycerides Cholesterol LDL Cholesterol Direct HDL Cholesterol Prostate Specific Ag < 0.1 Vitamin B12 25-OH Vitamin D Total Folate Procalcitonin Free T4 1.88 Thyroxine (T4) 8.6 TSH 3rd Generation 0.08 L Venous Blood Potassium RPR Hepatitis A IgM Ab Negative Hep Bs Antigen Negative Hep B Core IgM Ab Negative Hepatitis C Antibody Negative 08/24/18 08/24/18 08/24/18 02:00 02:00 02:00 WBC RBC Hgb Hct MCV MCH MCHC RDW Plt Count MPV Neut % (Auto) Lymph % (Auto) [place] % (Auto) Eos % (Auto) Baso % (Auto) Lymph # (Auto) [place] # (Auto) Eos # (Auto) Baso # (Auto) Absolute Neuts (auto) ESR Retic Count PT INR APTT pO2 VBG pH VBG pCO2 VBG HCO3 VBG Total CO2 VBG O2 Sat (Calc) VBG Base Excess VBG Potassium Sodium Chloride Glucose Lactate FiO2 Potassium Carbon Dioxide Anion Gap BUN Creatinine Est GFR ( Amer) Est GFR (Non-Af Amer) Random Glucose Hemoglobin A1c Lactic Acid 1.4 Uric Acid Calcium Phosphorus Magnesium Iron TIBC % Saturation Ferritin Total Bilirubin AST ALT Alkaline Phosphatase Total Creatine Kinase C-React Prot High Sens Total Protein Albumin Globulin Albumin/Globulin Ratio Triglycerides Cholesterol LDL Cholesterol Direct HDL Cholesterol Prostate Specific Ag Vitamin B12 25-OH Vitamin D Total Folate Procalcitonin 0.14 L Free T4 Thyroxine (T4) TSH 3rd Generation Venous Blood Potassium RPR Nonreactive Hepatitis A IgM Ab Hep Bs Antigen Hep B Core IgM Ab Hepatitis C Antibody 08/24/18 08/24/18 08/24/18 02:00 02:00 04:30 WBC RBC Hgb Hct MCV MCH MCHC RDW Plt Count MPV Neut % (Auto) Lymph % (Auto) [place] % (Auto) Eos % (Auto) Baso % (Auto) Lymph # (Auto) [place] # (Auto) Eos # (Auto) Baso # (Auto) Absolute Neuts (auto) ESR Retic Count PT INR APTT pO2 VBG pH VBG pCO2 VBG HCO3 VBG Total CO2 VBG O2 Sat (Calc) VBG Base Excess VBG Potassium Sodium Chloride Glucose Lactate FiO2 Potassium Carbon Dioxide Anion Gap BUN Creatinine Est GFR ( Amer) Est GFR (Non-Af Amer) Random Glucose Hemoglobin A1c 6.4 Lactic Acid Uric Acid Calcium Phosphorus Magnesium Iron TIBC % Saturation Ferritin Total Bilirubin AST ALT Alkaline Phosphatase Total Creatine Kinase 22 L C-React Prot High Sens Total Protein Albumin Globulin Albumin/Globulin Ratio Triglycerides Cholesterol LDL Cholesterol Direct HDL Cholesterol Prostate Specific Ag Vitamin B12 25-OH Vitamin D Total 19.8 L Folate Procalcitonin Free T4 Thyroxine (T4) TSH 3rd Generation Venous Blood Potassium RPR Hepatitis A IgM Ab Hep Bs Antigen Hep B Core IgM Ab Hepatitis C Antibody 08/24/18 08:25 WBC RBC Hgb Hct MCV MCH MCHC RDW Plt Count MPV Neut % (Auto) Lymph % (Auto) [place] % (Auto) Eos % (Auto) Baso % (Auto) Lymph # (Auto) [place] # (Auto) Eos # (Auto) Baso # (Auto) Absolute Neuts (auto) ESR Retic Count PT INR APTT pO2 VBG pH VBG pCO2 VBG HCO3 VBG Total CO2 VBG O2 Sat (Calc) VBG Base Excess VBG Potassium Sodium Chloride Glucose Lactate FiO2 Potassium Carbon Dioxide Anion Gap BUN Creatinine Est GFR ( Amer) Est GFR (Non-Af Amer) Random Glucose Hemoglobin A1c Lactic Acid Uric Acid Calcium Phosphorus Magnesium Iron TIBC % Saturation Ferritin Total Bilirubin AST ALT Alkaline Phosphatase Total Creatine Kinase < 20 L C-React Prot High Sens Total Protein Albumin Globulin Albumin/Globulin Ratio Triglycerides Cholesterol LDL Cholesterol Direct HDL Cholesterol Prostate Specific Ag Vitamin B12 25-OH Vitamin D Total Folate Procalcitonin Free T4 Thyroxine (T4) TSH 3rd Generation Venous Blood Potassium RPR Hepatitis A IgM Ab Hep Bs Antigen Hep B Core IgM Ab Hepatitis C Antibody Assessment & Plan - Assessment and Plan (Free Text) Assessment: 68-year-old male with past medical history of chronic back pain, vertebral disc disease, presents to the ED with bilateral foot pain and skin ulcers. Continue with vancomycin, will discontinue meropenem F/u septic workup, including wound cx Follow-up podiatry recs F/u lower extremity CT, and abdominal CT Follow-up lower extremity ultrasound Case and plan was reviewed and discussed with Dr. Kelley <Chris Kelley - Last Filed: 08/24/18 15:45> Meds - Medications Medications: Current Medications Acetaminophen (Tylenol 325mg Tab) 650 mg PO Q6 PRN PRN Reason: TEMP>=99.5F Last Admin: 08/24/18 00:34 Dose: 650 mg Acetaminophen (Tylenol 650 Mg Supp) 650 mg RC Q6H PRN PRN Reason: TEMP>=99.5F Acetylcysteine (Acetylcysteine 20%) 4 ml IH [id number] Last Admin: 08/24/18 13:08 Dose: 4 ml Heparin Sodium (Porcine) (Heparin) 5,000 units SC Q8 [facility]; Protocol Last Admin: 08/24/18 15:07 Dose: 5,000 units Vancomycin HCl 1.25 gm/ Sodium (Chloride) 250 mls @ 167 mls/hr IVPB Q12 [facility]; Protocol Levalbuterol HCl (Xopenex) 0.63 mg IH [id number] [facility] Last Admin: 08/24/18 13:09 Dose: 0.63 mg Morphine Sulfate (Morphine) 1 mg IVP Q3H PRN PRN Reason: Pain, severe (8-10) Last Admin: 08/24/18 15:31 Dose: 1 mg Nicotine (Nicoderm Cq) 1 patch TD DAILY [facility] Last Admin: 08/24/18 10:33 Dose: 1 patch Ondansetron HCl (Zofran Inj) 4 mg IVP Q4H PRN PRN Reason: Nausea/Vomiting Pantoprazole Sodium (Protonix Ec Tab) 40 mg PO 0600 [facility] Last Admin: 08/24/18 05:47 Dose: 40 mg Polyethylene Glycol (Miralax) 17 gm PO BID [facility] Last Admin: 08/24/18 10:32 Dose: 17 gm Results - Vital Signs Recent Vital Signs: Last Vital Signs Temp 98.2 F 08/24/18 06:00 Pulse 93 H 08/24/18 06:00 Resp 18 08/24/18 06:00 BP 110/67 08/24/18 06:00 Pulse Ox 96 08/24/18 06:00 - Labs Result Diagrams: 08/23/18 22:20 08/23/18 22:20 Labs: Laboratory Results - last 24 hr 08/23/18 08/23/18 08/23/18 22:20 22:20 22:20 WBC 11.3 H RBC 3.63 Hgb 10.2 L Hct 32.5 L MCV 89.5 MCH 28.1 MCHC 31.4 RDW 13.9 Plt Count 349 MPV 9.3 Neut % (Auto) 79.7 H Lymph % (Auto) 7.6 L [place] % (Auto) 12.4 H Eos % (Auto) 0.1 L Baso % (Auto) 0.2 Lymph # (Auto) 0.9 L [place] # (Auto) 1.4 H Eos # (Auto) 0.0 Baso # (Auto) 0.02 Absolute Neuts (auto) 8.98 H ESR Retic Count PT 15.1 H INR 1.36 APTT 27.9 pO2 35 VBG pH 7.36 VBG pCO2 55.0 VBG HCO3 31.1 H VBG Total CO2 32.8 H VBG O2 Sat (Calc) 71.4 H VBG Base Excess 4.2 H VBG Potassium 5.1 Sodium 132.0 Chloride 99.0 Glucose 105 Lactate 1.9 FiO2 21.0 Potassium Carbon Dioxide Anion Gap BUN Creatinine Est GFR ( Amer) Est GFR (Non-Af Amer) Random Glucose Hemoglobin A1c Lactic Acid Uric Acid Calcium Phosphorus Magnesium Iron TIBC % Saturation Ferritin Total Bilirubin AST ALT Alkaline Phosphatase Total Creatine Kinase C-React Prot High Sens Total Protein Albumin Globulin Albumin/Globulin Ratio Triglycerides Cholesterol LDL Cholesterol Direct HDL Cholesterol Prostate Specific Ag Vitamin B12 25-OH Vitamin D Total Folate Procalcitonin Free T4 Thyroxine (T4) TSH 3rd Generation Venous Blood Potassium 5.1 RPR Hepatitis A IgM Ab Hep Bs Antigen Hep B Core IgM Ab Hepatitis C Antibody 08/23/18 08/23/18 08/23/18 22:20 22:20 22:20 WBC RBC Hgb Hct MCV MCH MCHC RDW Plt Count MPV Neut % (Auto) Lymph % (Auto) [place] % (Auto) Eos % (Auto) Baso % (Auto) Lymph # (Auto) [place] # (Auto) Eos # (Auto) Baso # (Auto) Absolute Neuts (auto) ESR Retic Count PT INR APTT pO2 VBG pH VBG pCO2 VBG HCO3 VBG Total CO2 VBG O2 Sat (Calc) VBG Base Excess VBG Potassium Sodium 134 Chloride 97 L Glucose Lactate FiO2 Potassium 4.8 Carbon Dioxide 30 Anion Gap 13 BUN 22 H Creatinine 0.6 L Est GFR ( Amer) > 60 Est GFR (Non-Af Amer) > 60 Random Glucose 108 Hemoglobin A1c Lactic Acid Uric Acid 4.6 Calcium 8.8 Phosphorus 4.2 Magnesium 1.8 Iron 22 L TIBC 234 L % Saturation 9 L Ferritin 324.0 Total Bilirubin 0.9 AST 163 H ALT 54 Alkaline Phosphatase 134 H Total Creatine Kinase 24 L C-React Prot High Sens Total Protein 8.1 Albumin 3.3 Globulin 4.8 Albumin/Globulin Ratio 0.7 L Triglycerides 65 Cholesterol 116 L LDL Cholesterol Direct 72 HDL Cholesterol 26 L Prostate Specific Ag Vitamin B12 600 25-OH Vitamin D Total Folate > 20.0 Procalcitonin Free T4 Thyroxine (T4) TSH 3rd Generation Venous Blood Potassium RPR Hepatitis A IgM Ab Hep Bs Antigen Hep B Core IgM Ab Hepatitis C Antibody 08/23/18 08/23/18 08/24/18 22:20 22:20 02:00 WBC RBC Hgb Hct MCV MCH MCHC RDW Plt Count MPV Neut % (Auto) Lymph % (Auto) [place] % (Auto) Eos % (Auto) Baso % (Auto) Lymph # (Auto) [place] # (Auto) Eos # (Auto) Baso # (Auto) Absolute Neuts (auto) ESR 110 H Retic Count 0.73 PT INR APTT pO2 VBG pH VBG pCO2 VBG HCO3 VBG Total CO2 VBG O2 Sat (Calc) VBG Base Excess VBG Potassium Sodium Chloride Glucose Lactate FiO2 Potassium Carbon Dioxide Anion Gap BUN Creatinine Est GFR ( Amer) Est GFR (Non-Af Amer) Random Glucose Hemoglobin A1c Lactic Acid Uric Acid Calcium Phosphorus Magnesium Iron TIBC % Saturation Ferritin Total Bilirubin AST ALT Alkaline Phosphatase Total Creatine Kinase C-React Prot High Sens > 15.00 H Total Protein Albumin Globulin Albumin/Globulin Ratio Triglycerides Cholesterol LDL Cholesterol Direct HDL Cholesterol Prostate Specific Ag < 0.1 Vitamin B12 25-OH Vitamin D Total Folate Procalcitonin Free T4 1.88 Thyroxine (T4) 8.6 TSH 3rd Generation 0.08 L Venous Blood Potassium RPR Hepatitis A IgM Ab Negative Hep Bs Antigen Negative Hep B Core IgM Ab Negative Hepatitis C Antibody Negative 08/24/18 08/24/18 08/24/18 02:00 02:00 02:00 WBC RBC Hgb Hct MCV MCH MCHC RDW Plt Count MPV Neut % (Auto) Lymph % (Auto) [place] % (Auto) Eos % (Auto) Baso % (Auto) Lymph # (Auto) [place] # (Auto) Eos # (Auto) Baso # (Auto) Absolute Neuts (auto) ESR Retic Count PT INR APTT pO2 VBG pH VBG pCO2 VBG HCO3 VBG Total CO2 VBG O2 Sat (Calc) VBG Base Excess VBG Potassium Sodium Chloride Glucose Lactate FiO2 Potassium Carbon Dioxide Anion Gap BUN Creatinine Est GFR ( Amer) Est GFR (Non-Af Amer) Random Glucose Hemoglobin A1c Lactic Acid 1.4 Uric Acid Calcium Phosphorus Magnesium Iron TIBC % Saturation Ferritin Total Bilirubin AST ALT Alkaline Phosphatase Total Creatine Kinase C-React Prot High Sens Total Protein Albumin Globulin Albumin/Globulin Ratio Triglycerides Cholesterol LDL Cholesterol Direct HDL Cholesterol Prostate Specific Ag Vitamin B12 25-OH Vitamin D Total Folate Procalcitonin 0.14 L Free T4 Thyroxine (T4) TSH 3rd Generation Venous Blood Potassium RPR Nonreactive Hepatitis A IgM Ab Hep Bs Antigen Hep B Core IgM Ab Hepatitis C Antibody 08/24/18 08/24/18 08/24/18 02:00 02:00 04:30 WBC RBC Hgb Hct MCV MCH MCHC RDW Plt Count MPV Neut % (Auto) Lymph % (Auto) [place] % (Auto) Eos % (Auto) Baso % (Auto) Lymph # (Auto) [place] # (Auto) Eos # (Auto) Baso # (Auto) Absolute Neuts (auto) ESR Retic Count PT INR APTT pO2 VBG pH VBG pCO2 VBG HCO3 VBG Total CO2 VBG O2 Sat (Calc) VBG Base Excess VBG Potassium Sodium Chloride Glucose Lactate FiO2 Potassium Carbon Dioxide Anion Gap BUN Creatinine Est GFR ( Amer) Est GFR (Non-Af Amer) Random Glucose Hemoglobin A1c 6.4 Lactic Acid Uric Acid Calcium Phosphorus Magnesium Iron TIBC % Saturation Ferritin Total Bilirubin AST ALT Alkaline Phosphatase Total Creatine Kinase 22 L C-React Prot High Sens Total Protein Albumin Globulin Albumin/Globulin Ratio Triglycerides Cholesterol LDL Cholesterol Direct HDL Cholesterol Prostate Specific Ag Vitamin B12 25-OH Vitamin D Total 19.8 L Folate Procalcitonin Free T4 Thyroxine (T4) TSH 3rd Generation Venous Blood Potassium RPR Hepatitis A IgM Ab Hep Bs Antigen Hep B Core IgM Ab Hepatitis C Antibody 08/24/18 08:25 WBC RBC Hgb Hct MCV MCH MCHC RDW Plt Count MPV Neut % (Auto) Lymph % (Auto) [place] % (Auto) Eos % (Auto) Baso % (Auto) Lymph # (Auto) [place] # (Auto) Eos # (Auto) Baso # (Auto) Absolute Neuts (auto) ESR Retic Count PT INR APTT pO2 VBG pH VBG pCO2 VBG HCO3 VBG Total CO2 VBG O2 Sat (Calc) VBG Base Excess VBG Potassium Sodium Chloride Glucose Lactate FiO2 Potassium Carbon Dioxide Anion Gap BUN Creatinine Est GFR ( Amer) Est GFR (Non-Af Amer) Random Glucose Hemoglobin A1c Lactic Acid Uric Acid Calcium Phosphorus Magnesium Iron TIBC % Saturation Ferritin Total Bilirubin AST ALT Alkaline Phosphatase Total Creatine Kinase < 20 L C-React Prot High Sens Total Protein Albumin Globulin Albumin/Globulin Ratio Triglycerides Cholesterol LDL Cholesterol Direct HDL Cholesterol Prostate Specific Ag Vitamin B12 25-OH Vitamin D Total Folate Procalcitonin Free T4 Thyroxine (T4) TSH 3rd Generation Venous Blood Potassium RPR Hepatitis A IgM Ab Hep Bs Antigen Hep B Core IgM Ab Hepatitis C Antibody Assessment & Plan - Assessment and Plan (Free Text) Assessment: Infectious diseases Attending Physician Attestation Patient seen and examined, discussed with medical photographer. I have reviewed the patient's history of present illness, past medical, social, personal and family histories, pertinent physical exam findings, course so far in this hospital admission, pertinent laboratory and imaging results. I agree with the above findings, assessment and plan. In addition, continue Vancomycin for patient with probable infected foot skin ulcers. Follow up wound cx. Will monitor clinically. Follow up recommendations of Podiatry.
--- NOTE | 2018-08-24 14:47 | CP.PCM.PCO ---
Physician Communication Note - Physician Communication Note Physician Communication Note: IV antibiotics, wound cult result, MRI r/o osteo
--- NOTE | 2018-08-24 16:57 | RAD ---
Date of service: 08/24/2018 PROCEDURE: Bilateral Feet Radiographs. HISTORY: r/o osteo COMPARISON: None. FINDINGS: BONES: Right Foot: Normal. No fracture. Left Foot: Normal. No fracture. JOINTS: Right Foot: Normal. No osteoarthritis. Left Foot: Normal. No osteoarthritis. SOFT TISSUES: Right Foot: Normal. Left Foot: Normal. OTHER FINDINGS: None. IMPRESSION: No evidence of osteomyelitis
[2018-08-24 19:16] LABS: BARBITURATES, UR NEGATIVE (NEGATIVE); BENZODIAZEPINES, UR NEGATIVE (NEGATIVE); OPIATES, UR POSITIVE (NEGATIVE); PHENCYCLIDINE, UR NEGATIVE (NEGATIVE)
--- NOTE | 2018-08-24 20:44 | US ---
HISTORY: Leg pain and swelling. Evaluate for DVT PHYSICIAN(S): Jero Tomlinson MD. TECHNIQUE: Duplex sonography and color-flow Doppler with graded compression were used to evaluate the deep venous systems of both lower extremities. The exam is limited by edema. The tibial veins are not well seen FINDINGS: The visualized deep venous systems of both lower extremities are sonographically normal and compressible. Normal wave forms and augmentation are seen. There is no sonographic evidence for deep venous thrombosis in the visualized segments of both lower extremities. IMPRESSION: No sonographic evidence for deep venous thrombosis in the visualized segments of both lower extremities. Limited study.
--- NOTE | 2018-08-24 20:46 | US ---
PROCEDURE: Lower extremity SRINIVAS exam HISTORY: Peripheral vascular disease with pain and ulceration PHYSICIAN(S): Jero Tomlinson MD. FINDINGS: The resting SRINIVAS's are mildly abnormal: Right, 0.84 and left, 0.84 The brachial systolic pressures are symmetric. The low thigh pressures and waveforms are relatively normal. The calf PVR waveforms augment normally. No significant gradients are noted across the thighs. There is a 39 mm gradient across the right knee and a 16 mm gradient across the left knee. This may represent borderline distal SFA, popliteal, and/or trifurcation disease bilaterally. The ankle PVR waveforms are pulsatile and relatively normal. The metatarsal waveforms are mildly blunted IMPRESSION: 1. Mildly abnormal ABIs at rest. 2. Possible bilateral distal SFA, popliteal, and/or trifurcation disease.
[2018-08-24] MEDS: Morphine 30 mg SR Tab PO SCH (22:19)
[2018-08-25] MEDS: Acetylcysteine 20% Inhal Soln (4ml) IH SCH ×4 (01:01→20:13)
[2018-08-25] MEDS: Levalbuterol 0.63 MG/3 ML Inhal Soln UD IH SCH ×4 (01:02→20:13)
[2018-08-25] MEDS: Pantoprazole 40 mg EC Tab PO SCH (05:58)
[2018-08-25 07:07] LABS: BASO # 0.05 K/mm3 (0.0-2.0); BASO % 0.9 % (0.0-3.0); EOS # 0.2 (0.0-0.7); EOS % 4.4 % (1.5-5.0); HEMOGLOBIN 8.4 g/dL (14.0-18.0); LYMPH # 0.7 (1.2-3.4); LYMPH % 12.9 % (22.0-35.0); MEAN CORPUSCULAR HEMOGLOBIN 27.1 pg (25.0-35.0); MEAN CORPUSCULAR HGB CONC 30.1 g/dl (31.0-37.0); MEAN PLATELET VOLUME 8.9 fl (7.0-11.0); MONO # 0.5 (0.1-0.6); MONO % 10.1 % (1.0-6.0); RBC 3.1 10^6/uL (3.5-6.1); RED CELL DISTRIBUTION WIDTH 13.8 % (11.5-14.5); WHITE BLOOD COUNT 5.3 10^3/uL (4.5-11.0)
[2018-08-25 07:37] LABS: ALB/GLOB RATIO 0.6 (1.1-1.8); ALBUMIN 2.2 g/dL (3.0-4.8); ALT/SGPT 28 U/L (7-56); AST/SGOT 60 U/L (17-59); BILIRUBIN,DIRECT 0.3 mg/dL (0.0-0.4); BLOOD UREA NITROGEN 13 mg/dL (7-21); CALCIUM 7.8 mg/dL (8.4-10.5); GFR NON-AFRICAN AMERICAN > 60
--- NOTE | 2018-08-25 08:50 | CP.PCM.PN ---
<Juancho Vides - Last Filed: 08/25/18 15:08> Subjective - Date & Time of Evaluation Date of Evaluation: 08/25/18 Time of Evaluation: 07:00 - Subjective Subjective: Infectious disease progress note: Patient seen and examined at bedside. No acute events overnight. Still c/o bilateral foot pain and cellulites. 12 point ROS performed and negative other than stated above. Objective - Vital Signs/Intake and Output Vital Signs (last 24 hours): Temp Pulse Resp BP Pulse Ox 98.4 F 108 H 18 112/52 L 92 L 08/25/18 06:00 08/25/18 06:00 08/25/18 06:00 08/25/18 06:00 08/25/18 06:00 Intake and Output: 08/25/18 08/25/18 06:59 18:59 Intake Total 900 Output Total 500 Balance 400 - Medications Medications: Current Medications Acetaminophen (Tylenol 325mg Tab) 650 mg PO Q6 PRN PRN Reason: TEMP>=99.5F Last Admin: 08/25/18 04:15 Dose: 650 mg Acetaminophen (Tylenol 650 Mg Supp) 650 mg RC Q6H PRN PRN Reason: TEMP>=99.5F Acetylcysteine (Acetylcysteine 20%) 4 ml IH [id number] [facility] Last Admin: 08/25/18 07:51 Dose: 4 ml Heparin Sodium (Porcine) (Heparin) 5,000 units SC Q8 [facility]; Protocol Last Admin: 08/25/18 05:58 Dose: 5,000 units Vancomycin HCl 1.25 gm/ Sodium (Chloride) 250 mls @ 167 mls/hr IVPB Q12 [facility]; Protocol Last Admin: 08/24/18 22:19 Dose: 167 mls/hr Lactated Ringer's (Lactated Ringer's) 1,000 mls @ 100 mls/hr IV .Q10H [facility] Stop: 08/27/18 10:44 Levalbuterol HCl (Xopenex) 0.63 mg IH [id number] [facility] Last Admin: 08/25/18 07:51 Dose: 0.63 mg Metoprolol Tartrate (Lopressor) 25 mg PO BRKDIN [facility] Morphine Sulfate (Morphine Extended Release Tab) 90 mg PO Q12 [facility] Last Admin: 08/24/18 22:19 Dose: 90 mg Nicotine (Nicoderm Cq) 1 patch TD DAILY [facility] Last Admin: 08/24/18 10:33 Dose: 1 patch Ondansetron HCl (Zofran Inj) 4 mg IVP Q4H PRN PRN Reason: Nausea/Vomiting Pantoprazole Sodium (Protonix Ec Tab) 40 mg PO 0600 [facility] Last Admin: 08/25/18 05:58 Dose: 40 mg Polyethylene Glycol (Miralax) 17 gm PO BID [facility] Last Admin: 08/24/18 19:00 Dose: 17 gm - Labs Labs: 08/25/18 06:40 08/25/18 06:40 PT 15.1 SECONDS (9.4-12.5) H 08/23/18 22:20 INR 1.36 08/23/18 22:20 APTT 27.9 Seconds (26.9-38.3) 08/23/18 22:20 - Constitutional Appears: No Acute Distress - Head Exam Head Exam: ATRAUMATIC, NORMOCEPHALIC - Eye Exam Eye Exam: EOMI - ENT Exam ENT Exam: Mucous Membranes Moist - Respiratory Exam Respiratory Exam: Clear to Ausculation Bilateral (no r/r/w) - Cardiovascular Exam Cardiovascular Exam: REGULAR RHYTHM, +S1, +S2 - GI/Abdominal Exam GI & Abdominal Exam: Soft (NTND) - Extremities Exam Additional comments: Dressing in place by pod - Neurological Exam Neurological Exam: Alert, Awake - Psychiatric Exam Psychiatric exam: Normal Mood - Skin Skin Exam: Dry, Warm Assessment and Plan - Assessment and Plan (Free Text) Assessment: 68-year-old male with past medical history of chronic back pain, vertebral disc disease, presents to the ED with bilateral foot pain and skin ulcers. Found to have left lower extremity wound, and bilateral LE venous stasis dermatitis. Continue with abx with vancomycin F/u septic workup, including wound cx Follow-up podiatry recs F/u lower extremity CT, and abdominal CT - both shows R gluteal sacral decub with, no osteo Follow-up lower extremity ultrasound - possible b/l SFA, popliteal,and trifurcation dx Recommend vascular consult and recs Cont to monitor Case and plan was reviewed and discussed with Dr. Kelley <Chris Kelley - Last Filed: 08/25/18 15:23> Objective - Vital Signs/Intake and Output Vital Signs (last 24 hours): Temp Pulse Resp BP Pulse Ox 98.4 F 108 H 18 112/52 L 92 L 08/25/18 06:00 08/25/18 06:00 08/25/18 06:00 08/25/18 06:00 08/25/18 06:00 Intake and Output: 08/25/18 08/25/18 06:59 18:59 Intake Total 900 Output Total 500 Balance 400 - Medications Medications: Current Medications Acetaminophen (Tylenol 325mg Tab) 650 mg PO Q6 PRN PRN Reason: TEMP>=99.5F Last Admin: 08/25/18 04:15 Dose: 650 mg Acetaminophen (Tylenol 650 Mg Supp) 650 mg RC Q6H PRN PRN Reason: TEMP>=99.5F Acetylcysteine (Acetylcysteine 20%) 4 ml IH [id number] [facility] Last Admin: 08/25/18 13:04 Dose: Not Given Collagenase (Santyl) 0 gm TOP DAILY [facility] Last Admin: 08/25/18 09:58 Dose: 1 appl Diphenhydramine HCl (Benadryl) 50 mg IVP Q6H PRN PRN Reason: Agitation Heparin Sodium (Porcine) (Heparin) 5,000 units SC Q8 [facility]; Protocol Last Admin: 08/25/18 05:58 Dose: 5,000 units Vancomycin HCl 1.25 gm/ Sodium (Chloride) 250 mls @ 167 mls/hr IVPB Q12 [facility]; Protocol Last Admin: 08/25/18 09:59 Dose: 167 mls/hr Lactated Ringer's (Lactated Ringer's) 1,000 mls @ 100 mls/hr IV .Q10H [facility] Stop: 08/27/18 10:44 Last Admin: 08/25/18 10:04 Dose: 100 mls/hr Levalbuterol HCl (Xopenex) 0.63 mg IH [id number] [facility] Last Admin: 08/25/18 13:04 Dose: Not Given Lorazepam (Ativan) 2 mg IVP Q6H PRN; Protocol PRN Reason: Anxiety Metoprolol Tartrate (Lopressor) 25 mg PO BRKDIN [facility] Morphine Sulfate (Morphine Extended Release Tab) 90 mg PO Q12 [facility] Last Admin: 08/25/18 10:10 Dose: 90 mg Mupirocin (Bactroban Ointment) 0 gm TOP BID [facility] Last Admin: 08/25/18 09:59 Dose: 1 appl Nicotine (Nicoderm Cq) 1 patch TD DAILY [facility] Last Admin: 08/25/18 10:02 Dose: 1 patch Ondansetron HCl (Zofran Inj) 4 mg IVP Q4H PRN PRN Reason: Nausea/Vomiting Pantoprazole Sodium (Protonix Ec Tab) 40 mg PO 0600 [facility] Last Admin: 08/25/18 05:58 Dose: 40 mg Polyethylene Glycol (Miralax) 17 gm PO BID [facility] Last Admin: 08/25/18 10:02 Dose: 17 gm - Labs Labs: 08/25/18 06:40 08/25/18 06:40 PT 15.1 SECONDS (9.4-12.5) H 08/23/18 22:20 INR 1.36 08/23/18 22:20 APTT 27.9 Seconds (26.9-38.3) 08/23/18 22:20 Assessment and Plan - Assessment and Plan (Free Text) Assessment: Infectious diseases Attending Physician Attestation Patient seen and examined, discussed with medical translator. I have reviewed the patient's history of present illness, past medical, social, personal and family histories, pertinent physical exam findings, course so far in this hospital admission, pertinent laboratory and imaging results. I agree with the above findings, assessment and plan. In addition, continue vancomycin for bilateral infected foot ulcers. May need vascular evaluation and MRI of the feet. Follow up further recommendations of Podiatry.
--- NOTE | 2018-08-25 09:10 | CP.PCM.PN ---
<Kishor Liu - Last Filed: 08/25/18 09:06> Subjective - Date & Time of Evaluation Date of Evaluation: 08/25/18 Time of Evaluation: 09:07 - Subjective Subjective: Podiatry consult note for Dr. Lloyd 68 y/o male with PMHx chronic back pain and vertebral disc disease seen and evaluated for infected skin ulcers and b/l foot pain worsening for the past 3 weeks. Patient in much better spirits today. Patient denies any acute overnight events. Objective - Vital Signs/Intake and Output Vital Signs (last 24 hours): Temp Pulse Resp BP Pulse Ox 98.4 F 108 H 18 112/52 L 92 L 08/25/18 06:00 08/25/18 06:00 08/25/18 06:00 08/25/18 06:00 08/25/18 06:00 Intake and Output: 08/25/18 08/25/18 06:59 18:59 Intake Total 900 Output Total 500 Balance 400 - Medications Medications: Current Medications Acetaminophen (Tylenol 325mg Tab) 650 mg PO Q6 PRN PRN Reason: TEMP>=99.5F Last Admin: 08/25/18 04:15 Dose: 650 mg Acetaminophen (Tylenol 650 Mg Supp) 650 mg RC Q6H PRN PRN Reason: TEMP>=99.5F Acetylcysteine (Acetylcysteine 20%) 4 ml IH [id number] [facility] Last Admin: 08/25/18 07:51 Dose: 4 ml Heparin Sodium (Porcine) (Heparin) 5,000 units SC Q8 [facility]; Protocol Last Admin: 08/25/18 05:58 Dose: 5,000 units Vancomycin HCl 1.25 gm/ Sodium (Chloride) 250 mls @ 167 mls/hr IVPB Q12 [facility]; Protocol Last Admin: 08/24/18 22:19 Dose: 167 mls/hr Lactated Ringer's (Lactated Ringer's) 1,000 mls @ 100 mls/hr IV .Q10H [facility] Stop: 08/27/18 10:44 Levalbuterol HCl (Xopenex) 0.63 mg IH [id number] [facility] Last Admin: 08/25/18 07:51 Dose: 0.63 mg Metoprolol Tartrate (Lopressor) 25 mg PO BRKDIN [facility] Morphine Sulfate (Morphine Extended Release Tab) 90 mg PO Q12 [facility] Last Admin: 08/24/18 22:19 Dose: 90 mg Nicotine (Nicoderm Cq) 1 patch TD DAILY [facility] Last Admin: 08/24/18 10:33 Dose: 1 patch Ondansetron HCl (Zofran Inj) 4 mg IVP Q4H PRN PRN Reason: Nausea/Vomiting Pantoprazole Sodium (Protonix Ec Tab) 40 mg PO 0600 [facility] Last Admin: 08/25/18 05:58 Dose: 40 mg Polyethylene Glycol (Miralax) 17 gm PO BID [facility] Last Admin: 08/24/18 19:00 Dose: 17 gm - Labs Labs: 08/25/18 06:40 08/25/18 06:40 PT 15.1 SECONDS (9.4-12.5) H 08/23/18 22:20 INR 1.36 08/23/18 22:20 APTT 27.9 Seconds (26.9-38.3) 08/23/18 22:20 - Constitutional Appears: Well, Non-toxic, No Acute Distress - Head Exam Head Exam: ATRAUMATIC, NORMOCEPHALIC - Extremities Exam Additional comments: Bilateral Lower Extremity Exam VASC: DP and PT non-palpable, TG warm to warm bilaterally, significant lymphedema noted bilaterally, non-pitting NEURO: grossly intact DERM: LEFT- 0.5 cm X 0.5 cm wound noted to submetatarsal 1 head, fibrotic base, minimal drainage, no tunneling, tracking or probe to bone, positive malodor, multiple superficial wounds noted to the lateral aspect of the left ankle with granular skin base, no drainage, no probe to bone, no tunneling or tracking, no malodor, chronic skin trophic changes secondary to long standing peripheral vascular disease RIGHT- significant chronic skin trophic changes secondary to long standing peripheral vascular disease ORTHO: pain with range of motion, and on palpation to the feet and legs bialterally - Neurological Exam Neurological Exam: Alert, Awake, Oriented x3 - Psychiatric Exam Psychiatric exam: Normal Affect, Normal Mood Assessment and Plan - Assessment and Plan (Free Text) Assessment: 68 y/o male patient seen and evaluated for left lower extremity wound, and bilateral LE venous stasis dermatitis Plan: Patient seen and evaluated Discussed in detail with Dr. Lloyd Afebrile, positive leukocytosis of 11.3 Bilateral foot x-ray ordered-no osteo on xray Arterial duplex studies ordered Vascular consult placed, recommendations appreciated MRI cancelled- patient uncooperative Ordered B/L Lower Ext CT Obtained Left foot wound cultures Continue IV Abx Infection Disease consult, recommendations appreciated Wound cleansed with saline and dressed with maxorb, ABD, DSD Ordered bactroban and Santyl Thank you for the consult Podiatry will continue to follow patient while in house <Kvng Lloyd - Last Filed: 08/25/18 09:51> Objective - Vital Signs/Intake and Output Vital Signs (last 24 hours): Temp Pulse Resp BP Pulse Ox 98.4 F 108 H 18 112/52 L 92 L 08/25/18 06:00 08/25/18 06:00 08/25/18 06:00 08/25/18 06:00 08/25/18 06:00 Intake and Output: 08/25/18 08/25/18 06:59 18:59 Intake Total 900 Output Total 500 Balance 400 - Medications Medications: Current Medications Acetaminophen (Tylenol 325mg Tab) 650 mg PO Q6 PRN PRN Reason: TEMP>=99.5F Last Admin: 08/25/18 04:15 Dose: 650 mg Acetaminophen (Tylenol 650 Mg Supp) 650 mg RC Q6H PRN PRN Reason: TEMP>=99.5F Acetylcysteine (Acetylcysteine 20%) 4 ml IH [id number] [facility] Last Admin: 08/25/18 07:51 Dose: 4 ml Collagenase (Santyl) 0 gm TOP DAILY [facility] Heparin Sodium (Porcine) (Heparin) 5,000 units SC Q8 [facility]; Protocol Last Admin: 08/25/18 05:58 Dose: 5,000 units Vancomycin HCl 1.25 gm/ Sodium (Chloride) 250 mls @ 167 mls/hr IVPB Q12 [facility]; Protocol Last Admin: 08/24/18 22:19 Dose: 167 mls/hr Lactated Ringer's (Lactated Ringer's) 1,000 mls @ 100 mls/hr IV .Q10H [facility] Stop: 08/27/18 10:44 Levalbuterol HCl (Xopenex) 0.63 mg IH [id number] [facility] Last Admin: 08/25/18 07:51 Dose: 0.63 mg Metoprolol Tartrate (Lopressor) 25 mg PO BRKDIN [facility] Morphine Sulfate (Morphine Extended Release Tab) 90 mg PO Q12 [facility] Last Admin: 08/24/18 22:19 Dose: 90 mg Mupirocin (Bactroban Ointment) 0 gm TOP BID [facility] Nicotine (Nicoderm Cq) 1 patch TD DAILY [facility] Last Admin: 08/24/18 10:33 Dose: 1 patch Ondansetron HCl (Zofran Inj) 4 mg IVP Q4H PRN PRN Reason: Nausea/Vomiting Pantoprazole Sodium (Protonix Ec Tab) 40 mg PO 0600 [facility] Last Admin: 08/25/18 05:58 Dose: 40 mg Polyethylene Glycol (Miralax) 17 gm PO BID [facility] Last Admin: 08/24/18 19:00 Dose: 17 gm - Labs Labs: 08/25/18 06:40 08/25/18 06:40 PT 15.1 SECONDS (9.4-12.5) H 08/23/18 22:20 INR 1.36 08/23/18 22:20 APTT 27.9 Seconds (26.9-38.3) 08/23/18 22:20 Attending/Attestation - Attestation I have personally seen and examined this patient.: Yes I have fully participated in the care of the patient.: Yes I have reviewed all pertinent clinical information, including history, physical exam and plan: Yes
[2018-08-25] MEDS: Collagenase 250 Units/gm Ointment(30 gm) TOP SCH (09:58)
[2018-08-25] MEDS: Mupirocin 2% Ointment 15 GM TUBE TOP SCH ×2 (09:59→18:59)
[2018-08-25] MEDS ORDERED: Collagenase 250 Units/gm Ointment(30 gm) TOP SCH (10:00)
[2018-08-25] MEDS ORDERED: Mupirocin 2% Ointment 15 GM TUBE TOP SCH (10:00)
[2018-08-25] MEDS: POLYETHYLENE GLYCOL 3350 17 GM/Dose PACKET PO SCH ×2 (10:02→19:02)
[2018-08-25] MEDS: Lactated Ringer's 1,000 ML IV SCH ×2 (10:04→18:59)
[2018-08-25] MEDS: Morphine 30 mg SR Tab PO SCH ×2 (10:10→23:05)
[2018-08-25] MEDS ORDERED: DiphenhydrAMINE 50 mg/ml Inj IM ONE (10:35)
[2018-08-25] MEDS ORDERED: DiphenhydrAMINE 50 mg/ml Inj IVP PRN (11:49)
--- NOTE | 2018-08-25 16:17 | CP.PCM.PCO ---
Physician Communication Note - Physician Communication Note Physician Communication Note: Conservative Rx for decubiti now
[2018-08-26] MEDS: Acetylcysteine 20% Inhal Soln (4ml) IH SCH ×4 (01:36→19:54)
[2018-08-26] MEDS: Levalbuterol 0.63 MG/3 ML Inhal Soln UD IH SCH ×4 (01:36→19:54)
[2018-08-26] MEDS: Pantoprazole 40 mg EC Tab PO SCH (05:49)
[2018-08-26] MEDS: Lactated Ringer's 1,000 ML IV SCH (05:49)
[2018-08-26 07:09] LABS: BASO # 0.03 K/mm3 (0.0-2.0); BASO % 0.6 % (0.0-3.0); EOS # 0.8 (0.0-0.7); EOS % 15.2 % (1.5-5.0); HEMOGLOBIN 10.5 g/dL (14.0-18.0); LYMPH # 0.8 (1.2-3.4); LYMPH % 14.7 % (22.0-35.0); MEAN CELL VOLUME 89.2 fl (80.0-105.0); MEAN CORPUSCULAR HEMOGLOBIN 26.9 pg (25.0-35.0); MEAN CORPUSCULAR HGB CONC 30.2 g/dl (31.0-37.0); MEAN PLATELET VOLUME 9.4 fl (7.0-11.0); MONO # 0.7 (0.1-0.6); MONO % 12.6 % (1.0-6.0); RBC 3.9 10^6/uL (3.5-6.1); RED CELL DISTRIBUTION WIDTH 14.3 % (11.5-14.5); WHITE BLOOD COUNT 5.4 10^3/uL (4.5-11.0)
[2018-08-26 07:33] LABS: ALB/GLOB RATIO 0.7 (1.1-1.8); ALBUMIN 2.5 g/dL (3.0-4.8); ALT/SGPT 25 U/L (7-56); AST/SGOT 51 U/L (17-59); BILIRUBIN,DIRECT 0.3 mg/dL (0.0-0.4); BLOOD UREA NITROGEN 15 mg/dL (7-21); CALCIUM 8.3 mg/dL (8.4-10.5); GFR NON-AFRICAN AMERICAN > 60
--- NOTE | 2018-08-26 08:47 | PN ---
DATE: 08/25/2018 SUBJECTIVE: The patient is seen in room 562, bed 2. The patient is seen lying in the bed. The patient needed sedation for the MRI, which was ordered. The patient's overnight nurses' notes were reviewed. The patient complained of body pain, back pain, and leg pain. PHYSICAL EXAMINATION: VITAL SIGNS: T-max 98. Heart rates 95, 107, 80, 100, 108, 113. Blood pressures 109/65, 152/91, 112/52, 131/66. Respiration 18. O2 sat is 92% to 96%. GENERAL: The patient is seen lying in the bed. The patient is awake, responsive, disheveled, appearing poor hygiene. HEAD: Normocephalic and atraumatic. HEENT: Shows pinkish pale conjunctivae, dry oral mucosa, chronically ill appearing with facial muscle cachexia. NECK: No neck rigidity. CHEST: Kyphosis. LUNGS: Show no audible crackle, rales or wheezing. Occasional rhonchi, anterior upper lung redman. CARDIOVASCULAR: S1 and S2, regular rhythm. ABDOMEN: Soft. Positive bowel sounds. No palpable hepatosplenomegaly. GENITALIA: Male. RECTAL: Deferred. EXTREMITIES: Positive multiple decubitus ulcerations and ulceration of the posterior thigh and chronic stasis ulceration and dermatitis of the lower extremity noted. MUSCULOSKELETAL: Shows a body mass index of 26.6. NEUROLOGIC: Gait examination is not tested. VASCULAR: Unable to palpate pulses. DIAGNOSTIC DATA: On 08/25/2018, WBC 5.3, hemoglobin and hematocrit have dropped to 8.4 and 28, and platelets 271. Granulocytes 72%, segs. Sodium 137, potassium 4.2, chloride 104, CO2 of 32, anion gap 6, BUN 13, creatinine 0.6, GFR greater than 60, glucose 96, hemoglobin A1c 6.4, calcium 7.8, phosphorus 3.7, magnesium 1.9. AST 60. CPK is negative. Total protein 5.7, albumin 2.2. Iron is 22, TIBC 234, saturation 9. C-reactive protein is greater than 15. Urine drug screen positive for opiates and cannabinoids. Hepatitis A, B and C serologies, HIV and RPR are negative. Cultures from the right leg, left foot and the leg cultures growing gram-negative clifton and gram-positive cocci and Corynebacterium species. IMPRESSION AND PLAN: 1. Multiple infected decubitus ulcerations in variable stages. 2. Chronic narcotic-dependent pain syndrome with vertebral disk disease. 3. Active nicotine and marijuana abuse and dependence. 4. Multiple infected sacral decubitus ulcerations. 5. Posterior thigh ulceration. 6. Tachycardia. 7. Hypotension. 8. Leukocytosis with granulocytosis. 9. Elevated erythrocyte sedimentation rate of 110. 10. Normocytic anemia with decreasing hemoglobin and hematocrit. 11. Iron-deficiency anemia. 12. Elevated C-reactive protein of greater than 15. 13. Urine drug screen positive for opiate and cannabinoids. 14. Gram-negative clifton, gram-positive cocci and Corynebacterium species cellulitis and infected leg ulceration and thigh ulceration and sacral decubitus ulceration. 15. Bilateral lower extremity venous stasis dermatitis and cellulitis. 16. Gait dysfunction. 17. Possible left lower lobe pneumonia. 18. Splenic granulomas. 19. Severe degenerative joint disease of the hip. 20. Right gluteal soft tissue ulceration extending to ischial tuberosity with bilateral ischial osteophytes. 21. 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 22. Right ischial tuberosity decubitus ulceration and cellulitis of the posterior right thigh and cellulitis of the posterior lateral left thigh and gluteal region with subcutaneous fat stranding, left more than the right. 23. Severe osteoarthritis of both hips with flattening and remodelling of the femoral head. 24. Deconditioning. 25. Poor personal hygiene. 26. Possible bilateral distal superficial femoral artery and popliteal trifurcation disease with abnormal ankle-brachial index of 0.84 at right and 0.84 at left. 27. Sinus tachycardia. 28. Right bundle-branch block. 29. Bilateral lower extremity wounds. 30. Bilateral lower extremity venous stasis dermatitis. 31. Constipation. 32. Nicotine dependence. PLAN: At this time, the patient has been ordered repeat labs. Transfusion of PRBC ordered. Blood cultures are ordered. The results of blood cultures are still pending. Current consultations: Surgery, Infectious Disease, Podiatry and Interventional Radiology. TCU evaluation ordered. Current medications: Mucomyst nebulizer 20% every 6 hours, Xopenex nebulizer every 6 hours, Ativan 2 mg IV every 6 hours p.r.n., which will be changed to 1 mg IV every 6 hours p.r.n. for anxiety. Bactroban cream to the affected area. Benadryl IV push every 6 hours p.r.n., heparin 5000 units subcu every 8 hours, Venofer 200 mg IV daily, Ringer's lactate at 100 mL an hour, Lopressor 25 mg twice a day, MiraLax 17 g twice a day. The patient is on morphine extended release 90 mg every 12 hours, nicotine patch 21 mg daily, Protonix 40 mg daily for GI prophylaxis, Santyl apply to the affected area daily, Tylenol p.o. or suppository every 6 hours, vancomycin 1.25 g IV every 12 hours, Xopenex nebulizer 0.63 mg every 6 hours, Zofran 4 mg IV every 4 hours p.r.n. The patient's MRI of the foot and the sacrum is pending. Repeat EKG ordered. The patient is on regular diet, out of bed, physical therapy, occupational therapy, specialty mattress. Stool occult blood ordered. The patient will be ordered GI and hematology evaluation for anemia. The patient will be continued on the above therapeutic intervention as ordered. The patient's overall prognosis is guarded to poor. The patient is seen by physical therapist. The patient underwent physical therapy. Their recommendation was rehab. The patient's case has already been referred for TCU for evaluation. At present, the patient's further management will be dependent upon the patient's clinical condition, hemodynamic status and as per the patient response to therapeutic intervention. The patient at present will be continued on the above therapeutic intervention. The patient has been ordered out of bed, physical therapy. Transfusion of 1 unit PRBC ordered. Dictated and electronically signed, not read. Carlos Hernandez MD
--- NOTE | 2018-08-26 08:57 | CP.PCM.PN ---
<Kishor Liu - Last Filed: 08/26/18 08:44> Subjective - Date & Time of Evaluation Date of Evaluation: 08/26/18 Time of Evaluation: 08:44 - Subjective Subjective: Podiatry consult note for Dr. Lloyd 68 y/o male with PMHx chronic back pain and vertebral disc disease seen and evaluated for infected skin ulcers and b/l foot pain worsening for the past 3 weeks. Patient in much better spirits today. Patient denies any acute overnight events. Objective - Vital Signs/Intake and Output Vital Signs (last 24 hours): Temp Pulse Resp BP Pulse Ox 98.2 F 97 H 18 123/65 98 08/26/18 06:00 08/26/18 06:00 08/26/18 06:00 08/26/18 06:00 08/25/18 21:30 Intake and Output: 08/26/18 08/26/18 06:59 18:59 Intake Total 1258 Output Total 650 Balance 608 - Medications Medications: Current Medications Acetaminophen (Tylenol 325mg Tab) 650 mg PO Q6 PRN PRN Reason: TEMP>=99.5F Last Admin: 08/25/18 04:15 Dose: 650 mg Acetaminophen (Tylenol 650 Mg Supp) 650 mg RC Q6H PRN PRN Reason: TEMP>=99.5F Acetylcysteine (Acetylcysteine 20%) 4 ml IH [id number] [facility] Last Admin: 08/26/18 07:15 Dose: 4 ml Collagenase (Santyl) 0 gm TOP DAILY [facility] Last Admin: 08/25/18 09:58 Dose: 1 appl Diphenhydramine HCl (Benadryl) 50 mg IVP Q6H PRN PRN Reason: Agitation Heparin Sodium (Porcine) (Heparin) 5,000 units SC Q8 [facility]; Protocol Last Admin: 08/26/18 05:49 Dose: 5,000 units Vancomycin HCl 1.25 gm/ Sodium (Chloride) 250 mls @ 167 mls/hr IVPB Q12 [facility]; Protocol Last Admin: 08/25/18 23:06 Dose: 167 mls/hr Lactated Ringer's (Lactated Ringer's) 1,000 mls @ 100 mls/hr IV .Q10H [facility] Stop: 08/27/18 10:44 Last Admin: 08/26/18 05:49 Dose: 100 mls/hr Iron Sucrose 200 mg/ Sodium (Chloride) 110 mls @ 110 mls/hr IVPB DAILY [facility] Stop: 08/30/18 10:59 Levalbuterol HCl (Xopenex) 0.63 mg IH [id number] [facility] Last Admin: 08/26/18 07:15 Dose: 0.63 mg Lorazepam (Ativan) 1 mg IVP Q6H PRN; Protocol PRN Reason: Anxiety Metoprolol Tartrate (Lopressor) 25 mg PO BRKDIN [facility] Last Admin: 08/25/18 19:06 Dose: 25 mg Morphine Sulfate (Morphine Extended Release Tab) 90 mg PO Q12 [facility] Last Admin: 08/25/18 23:05 Dose: 90 mg Mupirocin (Bactroban Ointment) 0 gm TOP BID [facility] Last Admin: 08/25/18 18:59 Dose: 1 appl Nicotine (Nicoderm Cq) 1 patch TD DAILY [facility] Last Admin: 08/25/18 10:02 Dose: 1 patch Ondansetron HCl (Zofran Inj) 4 mg IVP Q4H PRN PRN Reason: Nausea/Vomiting Pantoprazole Sodium (Protonix Ec Tab) 40 mg PO 0600 [facility] Last Admin: 08/26/18 05:49 Dose: 40 mg Polyethylene Glycol (Miralax) 17 gm PO BID [facility] Last Admin: 08/25/18 19:02 Dose: 17 gm - Labs Labs: 08/26/18 06:50 08/26/18 06:50 PT 15.1 SECONDS (9.4-12.5) H 08/23/18 22:20 INR 1.36 08/23/18 22:20 APTT 27.9 Seconds (26.9-38.3) 08/23/18 22:20 - Constitutional Appears: Well, Non-toxic, No Acute Distress - Head Exam Head Exam: ATRAUMATIC, NORMOCEPHALIC - Extremities Exam Additional comments: Bilateral Lower Extremity Exam VASC: DP and PT non-palpable, TG warm to warm bilaterally, significant lymphedema noted bilaterally, non-pitting NEURO: grossly intact DERM: LEFT- 0.5 cm X 0.5 cm wound noted to submetatarsal 1 head, fibrotic base, minimal drainage, no tunneling, tracking or probe to bone, positive malodor, multiple superficial wounds noted to the lateral aspect of the left ankle with granular skin base, no drainage, no probe to bone, no tunneling or tracking, no malodor, chronic skin trophic changes secondary to long standing peripheral vascular disease RIGHT- superficial wound noted to the lateral aspect of the leg at the site of previous chronic skin trophic changes secondary to long standing peripheral vascular disease, wound base 100% granular, minimal serous drainage, mild malodor, no tunneling, tracking or probe to bone ORTHO: pain with range of motion, and on palpation to the feet and legs bialterally - Neurological Exam Neurological Exam: Alert, Awake, Oriented x3 - Psychiatric Exam Psychiatric exam: Normal Affect, Normal Mood Assessment and Plan - Assessment and Plan (Free Text) Assessment: 68 y/o male patient seen and evaluated for left lower extremity wound, and bilateral LE venous stasis dermatitis Plan: Patient seen and evaluated Discussed in detail with Dr. Lloyd Afebrile, absent leukocytosis Bilateral foot x-ray ordered-no osteo on xray Arterial duplex studies ordered Vascular consult placed, recommendations appreciated Patient refused CT as well, will try MRI again today Obtained Left foot wound cultures: MRSA, Morg morgnanii Continue IV Abx Infection Disease consult, recommendations appreciated Wound cleansed with saline and dressed with bactroban, santyl, maxorb, ABD DSD Thank you for the consult Podiatry will continue to follow patient while in house <Kvng Lloyd - Last Filed: 08/27/18 14:39> Objective - Vital Signs/Intake and Output Vital Signs (last 24 hours): Temp Pulse Resp BP Pulse Ox 98.8 F 100 H 20 115/78 96 08/26/18 16:49 08/26/18 16:49 08/26/18 16:49 08/26/18 16:49 08/26/18 16:49 Intake and Output: 08/26/18 08/26/18 06:59 18:59 Intake Total 1258 Output Total 650 Balance 608 - Medications Medications: Current Medications Acetaminophen (Tylenol 325mg Tab) 650 mg PO Q6 PRN PRN Reason: TEMP>=99.5F Last Admin: 08/25/18 04:15 Dose: 650 mg Acetaminophen (Tylenol 650 Mg Supp) 650 mg RC Q6H PRN PRN Reason: TEMP>=99.5F Acetylcysteine (Acetylcysteine 20%) 4 ml IH [id number] [facility] Last Admin: 08/26/18 13:04 Dose: Not Given Collagenase (Santyl) 0 gm TOP DAILY [facility] Last Admin: 08/26/18 10:01 Dose: 1 appl Cyanocobalamin (Vitamin B12 1000 Mcg/Ml Inj) 1,000 mcg IM DAILY [facility] Stop: 09/04/18 10:01 Last Admin: 08/26/18 15:46 Dose: 1,000 mcg Diphenhydramine HCl (Benadryl) 50 mg IVP Q6H PRN PRN Reason: Agitation Ergocalciferol (Drisdol 50,000 Intl Units Cap) 1 cap PO Q7D [facility] Last Admin: 08/26/18 15:49 Dose: 1 cap Folic Acid (Folic Acid) 1 mg PO DAILY [facility] Last Admin: 08/26/18 15:49 Dose: 1 mg Heparin Sodium (Porcine) (Heparin) 5,000 units SC Q8 [facility]; Protocol Last Admin: 08/26/18 15:47 Dose: 5,000 units Vancomycin HCl 1.25 gm/ Sodium (Chloride) 250 mls @ 167 mls/hr IVPB Q12 [facility]; Protocol Last Admin: 08/26/18 10:01 Dose: 167 mls/hr Lactated Ringer's (Lactated Ringer's) 1,000 mls @ 100 mls/hr IV .Q10H [facility] Stop: 08/27/18 10:44 Last Admin: 08/26/18 05:49 Dose: 100 mls/hr Iron Sucrose 200 mg/ Sodium (Chloride) 110 mls @ 110 mls/hr IVPB DAILY [facility] Stop: 08/30/18 10:59 Last Admin: 08/26/18 15:47 Dose: 110 mls/hr Levalbuterol HCl (Xopenex) 0.63 mg IH [id number] [facility] Last Admin: 08/26/18 13:04 Dose: Not Given Lorazepam (Ativan) 1 mg IVP Q6H PRN; Protocol PRN Reason: Anxiety Lorazepam (Ativan) 2 mg IVP ONCE PRN; Protocol PRN Reason: Anxiety Metoprolol Tartrate (Lopressor) 25 mg PO BRKDIN [facility] Last Admin: 08/26/18 09:35 Dose: 25 mg Morphine Sulfate (Morphine Extended Release Tab) 90 mg PO Q12 [facility] Last Admin: 08/26/18 09:40 Dose: 90 mg Mupirocin (Bactroban Ointment) 0 gm TOP BID [facility] Last Admin: 08/26/18 10:01 Dose: 1 appl Nicotine (Nicoderm Cq) 1 patch TD DAILY [facility] Last Admin: 08/26/18 09:35 Dose: 1 patch Ondansetron HCl (Zofran Inj) 4 mg IVP Q4H PRN PRN Reason: Nausea/Vomiting Pantoprazole Sodium (Protonix Ec Tab) 40 mg PO 0600 [facility] Last Admin: 08/26/18 05:49 Dose: 40 mg Polyethylene Glycol (Miralax) 17 gm PO BID [facility] Last Admin: 08/26/18 09:36 Dose: 17 gm - Labs Labs: 08/26/18 06:50 08/26/18 06:50 PT 15.1 SECONDS (9.4-12.5) H 08/23/18 22:20 INR 1.36 08/23/18 22:20 APTT 27.9 Seconds (26.9-38.3) 08/23/18 22:20 Attending/Attestation - Attestation I have personally seen and examined this patient.: Yes I have fully participated in the care of the patient.: Yes I have reviewed all pertinent clinical information, including history, physical exam and plan: Yes
[2018-08-26 09:04] LABS: IRON 39 ug/dL (45-180)
[2018-08-26 09:12] LABS: % IRON SATURATION 20 % (20-55); TOTAL IRON BINDING CAPACITY 194 ug/dL (261-462)
[2018-08-26] MEDS: POLYETHYLENE GLYCOL 3350 17 GM/Dose PACKET PO SCH ×2 (09:36→18:55)
[2018-08-26] MEDS: Morphine 30 mg SR Tab PO SCH ×2 (09:40→22:03)
--- NOTE | 2018-08-26 09:46 | CP.PCM.PN ---
<Juancho Vides - Last Filed: 08/26/18 12:33> Subjective - Date & Time of Evaluation Date of Evaluation: 08/26/18 Time of Evaluation: 07:00 - Subjective Subjective: Infectious disease progress note: Patient seen and examined at bedside. No acute events overnight. Complains of R lower ext pain. No other complaints. 12 point ROS performed and negative other than stated above. Objective - Vital Signs/Intake and Output Vital Signs (last 24 hours): Temp Pulse Resp BP Pulse Ox 98.2 F 97 H 18 123/65 98 08/26/18 06:00 08/26/18 06:00 08/26/18 06:00 08/26/18 06:00 08/25/18 21:30 Intake and Output: 08/26/18 08/26/18 06:59 18:59 Intake Total 1258 Output Total 650 Balance 608 - Medications Medications: Current Medications Acetaminophen (Tylenol 325mg Tab) 650 mg PO Q6 PRN PRN Reason: TEMP>=99.5F Last Admin: 08/25/18 04:15 Dose: 650 mg Acetaminophen (Tylenol 650 Mg Supp) 650 mg RC Q6H PRN PRN Reason: TEMP>=99.5F Acetylcysteine (Acetylcysteine 20%) 4 ml IH [id number] [facility] Last Admin: 08/26/18 07:15 Dose: 4 ml Collagenase (Santyl) 0 gm TOP DAILY [facility] Last Admin: 08/25/18 09:58 Dose: 1 appl Diphenhydramine HCl (Benadryl) 50 mg IVP Q6H PRN PRN Reason: Agitation Heparin Sodium (Porcine) (Heparin) 5,000 units SC Q8 [facility]; Protocol Last Admin: 08/26/18 05:49 Dose: 5,000 units Vancomycin HCl 1.25 gm/ Sodium (Chloride) 250 mls @ 167 mls/hr IVPB Q12 [facility]; Protocol Last Admin: 08/25/18 23:06 Dose: 167 mls/hr Lactated Ringer's (Lactated Ringer's) 1,000 mls @ 100 mls/hr IV .Q10H [facility] Stop: 08/27/18 10:44 Last Admin: 08/26/18 05:49 Dose: 100 mls/hr Iron Sucrose 200 mg/ Sodium (Chloride) 110 mls @ 110 mls/hr IVPB DAILY [facility] Stop: 08/30/18 10:59 Levalbuterol HCl (Xopenex) 0.63 mg IH [id number] [facility] Last Admin: 08/26/18 07:15 Dose: 0.63 mg Lorazepam (Ativan) 1 mg IVP Q6H PRN; Protocol PRN Reason: Anxiety Metoprolol Tartrate (Lopressor) 25 mg PO BRKDIN [facility] Last Admin: 08/25/18 19:06 Dose: 25 mg Morphine Sulfate (Morphine Extended Release Tab) 90 mg PO Q12 [facility] Last Admin: 08/25/18 23:05 Dose: 90 mg Mupirocin (Bactroban Ointment) 0 gm TOP BID [facility] Last Admin: 08/25/18 18:59 Dose: 1 appl Nicotine (Nicoderm Cq) 1 patch TD DAILY [facility] Last Admin: 08/25/18 10:02 Dose: 1 patch Ondansetron HCl (Zofran Inj) 4 mg IVP Q4H PRN PRN Reason: Nausea/Vomiting Pantoprazole Sodium (Protonix Ec Tab) 40 mg PO 0600 [facility] Last Admin: 08/26/18 05:49 Dose: 40 mg Polyethylene Glycol (Miralax) 17 gm PO BID [facility] Last Admin: 08/25/18 19:02 Dose: 17 gm - Labs Labs: 08/26/18 06:50 08/26/18 06:50 PT 15.1 SECONDS (9.4-12.5) H 08/23/18 22:20 INR 1.36 08/23/18 22:20 APTT 27.9 Seconds (26.9-38.3) 08/23/18 22:20 - Constitutional Appears: No Acute Distress - Eye Exam Eye Exam: EOMI - Respiratory Exam Respiratory Exam: Clear to Ausculation Bilateral. absent: Rales, Rhonchi, Wheezes - Cardiovascular Exam Cardiovascular Exam: RRR, +S1, +S2 - GI/Abdominal Exam GI & Abdominal Exam: Soft. absent: Tenderness - Extremities Exam Extremities Exam: absent: Calf Tenderness Additional comments: dressing in place by podiatry - Neurological Exam Neurological Exam: Alert, Awake, Oriented x3 - Psychiatric Exam Psychiatric exam: Normal Mood - Skin Skin Exam: Dry, Warm Assessment and Plan - Assessment and Plan (Free Text) Assessment: 68-year-old male with past medical history of chronic back pain, vertebral disc disease, presents to the ED with bilateral foot pain and skin ulcers. Found to have left lower extremity wound, and bilateral LE venous stasis dermatitis. Continue with abx with vancomycin Wound cx - L foot: Morg Morganii & MRSA, Skin Ulcer with Gram neg clifton, R foot with Proteus Follow-up podiatry recs F/u lower extremity CT, and abdominal CT - both shows R gluteal sacral decub with, no osteo Follow-up lower extremity ultrasound - possible b/l SFA, popliteal,and trifurcation dx Recommend vascular consult and recs F/u MRI of lower ext,and Pelvis Cont to monitor Case and plan was reviewed and discussed with Dr. Kelley <Chris Kelley - Last Filed: 08/26/18 18:11> Objective - Vital Signs/Intake and Output Vital Signs (last 24 hours): Temp Pulse Resp BP Pulse Ox 98.8 F 100 H 20 115/78 96 08/26/18 16:49 08/26/18 16:49 08/26/18 16:49 08/26/18 16:49 08/26/18 16:49 Intake and Output: 08/26/18 08/26/18 06:59 18:59 Intake Total 1258 Output Total 650 Balance 608 - Medications Medications: Current Medications Acetaminophen (Tylenol 325mg Tab) 650 mg PO Q6 PRN PRN Reason: TEMP>=99.5F Last Admin: 08/25/18 04:15 Dose: 650 mg Acetaminophen (Tylenol 650 Mg Supp) 650 mg RC Q6H PRN PRN Reason: TEMP>=99.5F Acetylcysteine (Acetylcysteine 20%) 4 ml IH [id number] [facility] Last Admin: 08/26/18 13:04 Dose: Not Given Collagenase (Santyl) 0 gm TOP DAILY [facility] Last Admin: 08/26/18 10:01 Dose: 1 appl Cyanocobalamin (Vitamin B12 1000 Mcg/Ml Inj) 1,000 mcg IM DAILY [facility] Stop: 09/04/18 10:01 Last Admin: 08/26/18 15:46 Dose: 1,000 mcg Diphenhydramine HCl (Benadryl) 50 mg IVP Q6H PRN PRN Reason: Agitation Ergocalciferol (Drisdol 50,000 Intl Units Cap) 1 cap PO Q7D [facility] Last Admin: 08/26/18 15:49 Dose: 1 cap Folic Acid (Folic Acid) 1 mg PO DAILY [facility] Last Admin: 08/26/18 15:49 Dose: 1 mg Heparin Sodium (Porcine) (Heparin) 5,000 units SC Q8 [facility]; Protocol Last Admin: 08/26/18 15:47 Dose: 5,000 units Vancomycin HCl 1.25 gm/ Sodium (Chloride) 250 mls @ 167 mls/hr IVPB Q12 [facility]; Protocol Last Admin: 08/26/18 10:01 Dose: 167 mls/hr Lactated Ringer's (Lactated Ringer's) 1,000 mls @ 100 mls/hr IV .Q10H [facility] Stop: 08/27/18 10:44 Last Admin: 08/26/18 05:49 Dose: 100 mls/hr Iron Sucrose 200 mg/ Sodium (Chloride) 110 mls @ 110 mls/hr IVPB DAILY [facility] Stop: 08/30/18 10:59 Last Admin: 08/26/18 15:47 Dose: 110 mls/hr Levalbuterol HCl (Xopenex) 0.63 mg IH [id number] [facility] Last Admin: 08/26/18 13:04 Dose: Not Given Lorazepam (Ativan) 1 mg IVP Q6H PRN; Protocol PRN Reason: Anxiety Lorazepam (Ativan) 2 mg IVP ONCE PRN; Protocol PRN Reason: Anxiety Metoprolol Tartrate (Lopressor) 25 mg PO BRKDIN [facility] Last Admin: 08/26/18 09:35 Dose: 25 mg Morphine Sulfate (Morphine Extended Release Tab) 90 mg PO Q12 [facility] Last Admin: 08/26/18 09:40 Dose: 90 mg Mupirocin (Bactroban Ointment) 0 gm TOP BID [facility] Last Admin: 08/26/18 10:01 Dose: 1 appl Nicotine (Nicoderm Cq) 1 patch TD DAILY [facility] Last Admin: 08/26/18 09:35 Dose: 1 patch Ondansetron HCl (Zofran Inj) 4 mg IVP Q4H PRN PRN Reason: Nausea/Vomiting Pantoprazole Sodium (Protonix Ec Tab) 40 mg PO 0600 [facility] Last Admin: 08/26/18 05:49 Dose: 40 mg Polyethylene Glycol (Miralax) 17 gm PO BID [facility] Last Admin: 02/07/19 09:36 Dose: 17 gm - Labs Labs: 08/26/18 06:50 08/26/18 06:50 PT 15.1 SECONDS (9.4-12.5) H 08/23/18 22:20 INR 1.36 08/23/18 22:20 APTT 27.9 Seconds (26.9-38.3) 08/23/18 22:20 Assessment and Plan - Assessment and Plan (Free Text) Assessment: Infectious diseases Attending Physician Attestation Patient seen and examined, discussed with medical fee clerk. I have reviewed the patient's history of present illness, past medical, social, personal and family histories, pertinent physical exam findings, course so far in this hospital admission, pertinent laboratory and imaging results. I agree with the above findings, assessment and plan. In addition, continue Vancomycin for patient with bilateral lower extremity wounds, with MRSA, also colonized with gram negative bacilli. Follow up MRI to rule out osteomyelitis. Follow up further plans of Podiatry.
[2018-08-26] MEDS: Collagenase 250 Units/gm Ointment(30 gm) TOP SCH (10:01)
[2018-08-26] MEDS: Mupirocin 2% Ointment 15 GM TUBE TOP SCH ×2 (10:01→18:53)
[2018-08-26 10:32] LABS: GLYCOMARK(R) 16.4 mcg/mL (7.3-36.6)
--- NOTE | 2018-08-26 12:01 | CON ---
DATE: 08/26/2018 GASTROENTEROLOGY CONSULTATION REQUESTING PHYSICIAN: Dr. Hernandez REASON FOR CONSULT: I have been asked to see this 68-year-old male with chronic back pain from herniated discs, who is admitted to the hospital with multiple decubiti in his buttocks, thighs and feet. The patient has had worsening bilateral foot pain for several weeks and has been unable to walk. He has been bedridden for weeks. I have been asked to see this patient for anemia. The patient does not know if he has been anemic in the past. He denies any rectal bleeding, melena, nausea, vomiting, abdominal pain or weight loss. PAST MEDICAL HISTORY: Notable for chronic back pain, herniated discs. PAST SURGICAL HISTORY: Notable for left ear surgery many years ago. SOCIAL HISTORY: The patient has smoked up to a pack a day for over 60 years. He denies alcohol use. He lives alone at home. He smokes marijuana on occasion. FAMILY HISTORY: Notable for father with lymphoma. MEDICATIONS AT HOME: Include opiate analgesics. REVIEW OF SYSTEMS: Fourteen-point review of systems is notable for foot pain, leg pain, chronic back pain and difficulty with ambulation. PHYSICAL EXAMINATION: GENERAL: Elderly male, appearing disheveled, lying in bed in no acute distress. VITAL SIGNS: Reveal temperature of 98.2, blood pressure 123/65, heart rate of 100. HEENT: Reveal sclerae to be white, conjunctivae pale. NECK: Supple. CHEST: Reveals lungs to be clear. HEART: Exam reveals regular rate and rhythm. ABDOMEN: Soft, nontender. EXTREMITIES: Show chronic stasis changes of his lower legs with stage II ulcers on his left hallux, left thigh, and a stage IV ulcer on his right gluteus with surrounding erythema. LABORATORY DATA: Reveal on admission to the hospital, hemoglobin of 10.2. On 08/25/2018, his hemoglobin dropped to 8.4. He received a unit of packed cells. His hemoglobin is up to 10.5 this morning. Sed rate of 110. White blood cell count 5.4, platelet count 277,000. Chemistries reveal potassium of 5.5. Iron saturation is 20% with serum iron 39, total iron binding capacity of 194. AST, ALT, alk phos were all normal. CT scan of the abdomen and pelvis shows no intra-abdominal masses, fluid collections or mural thickening of the bowels. There is again a large soft tissue ulcer in the right gluteus. IMPRESSION: A 68-year-old male, bedridden with chronic back pain, admitted with foot pain, inability to walk, multiple ulcers in his feet, thighs and a large ulcer in his right gluteus, with anemia. His iron saturation is 20%. There is no evidence of overt gastrointestinal bleeding. I believe that the anemia is secondary to chronic disease. RECOMMENDATIONS: Follow serial hematocrit given the patient's poor overall health. No plans for endoscopy or colonoscopy at this time. Thank you. Sunny Mcfadden MD
--- NOTE | 2018-08-26 15:33 | CP.PCM.PN ---
Subjective - Date & Time of Evaluation Date of Evaluation: 08/26/18 Time of Evaluation: 07:35 - Subjective Subjective: Patient seen and examined at bedside in no acute distress on clinitron bed. Patient has no complaints at the moment. No issues overnight according to nursing charts. Physical Exam - Constitutional Appears: No Acute Distress - Eye Exam Eye Exam: EOMI - Respiratory Exam Respiratory Exam: Clear to Ausculation Bilateral. absent: Rales, Rhonchi, Wheezes - Cardiovascular Exam Cardiovascular Exam: RRR, +S1, +S2 - GI/Abdominal Exam GI & Abdominal Exam: Soft. absent: Tenderness - Extremities Exam Extremities Exam: absent: Calf Tenderness Additional comments: dressing in place by podiatry - Neurological Exam Neurological Exam: Alert, Awake, Oriented x3 - Psychiatric Exam Psychiatric exam: Normal Mood - Skin Skin Exam:overgrown toenails, xerosis cutis bilaterally of feet Objective - Vital Signs/Intake and Output Vital Signs (last 24 hours): Temp Pulse Resp BP Pulse Ox 98.2 F 96 H 18 123/65 98 08/26/18 06:00 08/26/18 09:35 08/26/18 06:00 08/26/18 09:35 08/25/18 21:30 Intake and Output: 08/26/18 08/26/18 06:59 18:59 Intake Total 1258 Output Total 650 Balance 608 - Medications Medications: Current Medications Acetaminophen (Tylenol 325mg Tab) 650 mg PO Q6 PRN PRN Reason: TEMP>=99.5F Last Admin: 08/25/18 04:15 Dose: 650 mg Acetaminophen (Tylenol 650 Mg Supp) 650 mg RC Q6H PRN PRN Reason: TEMP>=99.5F Acetylcysteine (Acetylcysteine 20%) 4 ml IH [id number] [facility] Last Admin: 08/26/18 13:04 Dose: Not Given Collagenase (Santyl) 0 gm TOP DAILY [facility] Last Admin: 08/26/18 10:01 Dose: 1 appl Cyanocobalamin (Vitamin B12 1000 Mcg/Ml Inj) 1,000 mcg IM DAILY [facility] Stop: 09/04/18 10:01 Diphenhydramine HCl (Benadryl) 50 mg IVP Q6H PRN PRN Reason: Agitation Ergocalciferol (Drisdol 50,000 Intl Units Cap) 1 cap PO Q7D [facility] Folic Acid (Folic Acid) 1 mg PO DAILY [facility] Heparin Sodium (Porcine) (Heparin) 5,000 units SC Q8 [facility]; Protocol Last Admin: 08/26/18 05:49 Dose: 5,000 units Vancomycin HCl 1.25 gm/ Sodium (Chloride) 250 mls @ 167 mls/hr IVPB Q12 [facility]; Protocol Last Admin: 08/26/18 10:01 Dose: 167 mls/hr Lactated Ringer's (Lactated Ringer's) 1,000 mls @ 100 mls/hr IV .Q10H [facility] Stop: 08/27/18 10:44 Last Admin: 08/26/18 05:49 Dose: 100 mls/hr Iron Sucrose 200 mg/ Sodium (Chloride) 110 mls @ 110 mls/hr IVPB DAILY [facility] Stop: 08/30/18 10:59 Levalbuterol HCl (Xopenex) 0.63 mg IH [id number] [facility] Last Admin: 08/26/18 13:04 Dose: Not Given Lorazepam (Ativan) 1 mg IVP Q6H PRN; Protocol PRN Reason: Anxiety Lorazepam (Ativan) 2 mg IVP ONCE PRN; Protocol PRN Reason: Anxiety Metoprolol Tartrate (Lopressor) 25 mg PO BRKDIN [facility] Last Admin: 08/26/18 09:35 Dose: 25 mg Morphine Sulfate (Morphine Extended Release Tab) 90 mg PO Q12 [facility] Last Admin: 08/26/18 09:40 Dose: 90 mg Mupirocin (Bactroban Ointment) 0 gm TOP BID [facility] Last Admin: 08/26/18 10:01 Dose: 1 appl Nicotine (Nicoderm Cq) 1 patch TD DAILY [facility] Last Admin: 08/26/18 09:35 Dose: 1 patch Ondansetron HCl (Zofran Inj) 4 mg IVP Q4H PRN PRN Reason: Nausea/Vomiting Pantoprazole Sodium (Protonix Ec Tab) 40 mg PO 0600 [facility] Last Admin: 08/26/18 05:49 Dose: 40 mg Polyethylene Glycol (Miralax) 17 gm PO BID [facility] Last Admin: 08/26/18 09:36 Dose: 17 gm - Labs Labs: 08/26/18 06:50 08/26/18 06:50 PT 15.1 SECONDS (9.4-12.5) H 08/23/18 22:20 INR 1.36 08/23/18 22:20 APTT 27.9 Seconds (26.9-38.3) 08/23/18 22:20 Assessment and Plan - Assessment and Plan (Free Text) Assessment: 68-year-old male with past medical history of chronic back pain, vertebral disc disease, presents to the ED with bilateral foot pain and skin ulcers. Found to have left lower extremity wound, and bilateral LE venous stasis dermatitis. Plan Anemia -S/P transfusion of 1 PRBC, H&H are now stable from 8.4 to 10.5 -Stool occult blood -GI consulted Leukocytosis -Blood cultures show no growth after 48 hours -ID consulted -Sacral MRI COPD -Xopenex and Mucomyst Anxiety -Ativan 2 mg q6h PRN Lower extremity wounds -Wound cultures shows patient has Morg Morganii & MRSA, Skin Ulcer with Gram neg clifton, R foot with Proteus -Podiatry consulted -[facility]
[2018-08-26] MEDS: Ergocalciferol 50,000 Intl Units Cap PO SCH (15:49)
[2018-08-26 16:27] LABS: URINE BILIRUBIN NEGATIVE (NEGATIVE); URINE BLOOD NEGATIVE (NEGATIVE); URINE GLUCOSE (UA) NEGATIVE (NEGATIVE); URINE LEUKOCYTE ESTERASE NEGATIVE Leu/uL (NEGATIVE); URINE PROTEIN NEGATIVE mg/dL (<30 mg/dL)
[2018-08-26 16:29] LABS: URINE APPEARANCE CLEAR (CLEAR); URINE COLOR YELLOW (YELLOW)
--- NOTE | 2018-08-26 18:47 | CARD ---
APPROVED REPORT Date of service: 08/26/2018 EKG Measurement Heart [id number] <Conclusion> Sinus tachycardia Right bundle branch block Nonspecific ST-T changes Abnormal ECG
--- NOTE | 2018-08-26 21:31 | PN ---
DATE: 08/26/2018 SUBJECTIVE: The patient is seen in room 560, bed 2. The patient is seen lying in the bed. The patient appears to be much more comfortable, much more awake, much more cooperative and responsive and less in pain. The patient was unable to do the MRI yesterday which was ordered for unknown reason. Overnight, nurse's notes were reviewed. No adverse events were documented, reported or notified. PHYSICAL EXAMINATION: VITAL SIGNS: T-max 98.2, heart rate 96, blood pressure 110/75, respiration 18 to 22, pulse ox is missing . HEAD: Normocephalic, atraumatic. HEENT: Shows chronic ill-appearing male, appearing older than stated age. Pinkish pale conjunctivae. Anicteric sclerae. No oropharyngeal lesion. NECK: No neck rigidity. CHEST: Kyphosis. LUNGS: Show positive rhonchi, left more than the right. CARDIOVASCULAR: S1 and S2. Regular rhythm. Questionable soft systolic murmur, left sternal border, right second intercostal space, left second intercostal space. ABDOMEN: Soft. Positive bowel sounds. Positive sacral decubitus ulcerations in variable stages with positive ulceration of the posterior thigh and venous stasis ulceration and dermatitis of the lower extremities with elongated toenails noted. NEUROLOGIC: Gait examination, the patient is lying in the bed on specialty mattress. The patient stated that he had physical therapy this morning. DIAGNOSTIC DATA: CBC shows a hemoglobin and hematocrit 10.5 and 34.8, platelet 277. ESR is 105. Potassium is 5.5. Non-hemolyzed iron is 39, TIBC 194, iron saturation is 20. Wound cultures, sacral decubitus cultures are growing Morganella morganii, gram-negative clifton and Proteus penneri. The patient's MRI is still pending of the pelvis. IMPRESSION AND PLAN: 1. Sacral decubitus ulceration of various stage with bilateral posterior thigh ulcerations and bilateral lower extremity venous stasis ulcerations and cellulitis and dermatitis secondary to gram-negative clifton, Morganella morganii and gram-negative clifton and Proteus penneri. 2. History of narcotic-dependent pain syndrome. 3. Non-hemolyzed hyperkalemia. 4. Elevated erythrocyte sedimentation rate of 105. 5. Iron-deficiency normocytic anemia. 6. Status post packed red blood cell transfusion. 7. Sinus tachycardia. 8. Right bundle-branch block. 9. Questionable claustrophobia. 10. Severe gait dysfunction and bedridden status versus functional quadriplegia. 11. Severe xerosis of the both feet. 12. Dystrophic elongated toenails. 13. Poor personal hygiene. 14. Possible vitamin B12 deficiency. PLAN: At this time, the patient is awaiting for MRI of the pelvis and the foot. The patient will be continued on the medications as per the MAR of today. The patient is currently being followed by Podiatry, Infectious Disease, and Surgery. At present, the patient has been ordered daily physical therapy, occupational therapy, ambulation therapy, gait training, out of bed. The patient is to be continued on narcotic pain medications. The patient is to be continued on IV fluids. Both GI and DVT prophylaxis ordered. Out of bed to chair ordered. We will await for further next. The patient has been given a dose of Kayexalate 30 g p.o. stat. The patient has been started on IV Venofer. In addition, the patient is also started on vitamin B12 which is low 272, vitamin B12 1000 mcg IM daily for 10 doses.. Plan at this time, the patient is to be continued on above therapeutic intervention with close followup. We will await further recommendations from Surgery, Podiatry, Infectious Disease regarding further surgical versus nonsurgical managements regarding duration of the IV antibiotics and regarding further podiatric intervention if needed. The patient has been updated and explained about the patient's condition, diagnoses, treatment plan, treatment options. Recommendation by all the physicians involved the care of the patient was explained to the patient in layman's language. All questions concerned were answered. Dictated and electronically signed, not read. Carlos Hernandez MD
--- NOTE | 2018-08-27 00:32 | CON ---
DATE: 08/26/2018 HISTORY OF PRESENT ILLNESS: He is a 68-year-old man with anemia. His hemoglobin is 8.5. He gives a very poor history. Basically, he lives alone. He says that he almost never gets out of bed. He fell. He does not know when, many, many weeks ago. He basically out of bed. PHYSICAL EXAMINATION: SKIN: No petechiae. No bruises. HEENT: Anicteric with no telangiectasia. No mucosal lesions noted. NODES: Nonpalpable in the axillary, cervical, and supraclavicular, or inguinal regions. LUNGS: Clear at present. No vertebral tenderness. GENERAL: The patient is able to lie flat in bed. HEART: S1 and S2. ABDOMEN: Shows no liver, no spleen, no tenderness, no rebound, no ascites. EXTREMITIES: Show edema at the ankles bilaterally. CENTRAL NERVOUS SYSTEM: No focal finding. LABORATORY DATA: Hemoglobin was 8.5 on admission and after transfused 1 units up to 10.2. ASSESSMENT AND PLAN: I have ordered iron. I have ordered B12, etc. However, this is most likely the gastrointestinal bleeding, the slow bleed, even though he denies any change in bowel habits or anemia of chronic disease secondary to these infections, sacral decubitus that he has. I followed the labs at this point to be thorough he would need a colonoscopy and upper endoscopy. I do not know if he get that. I have asked gastroenterology evaluation. Hoping bone marrow aspiration and biopsy at this point and observing complete blood cell count. Moisés Castle MD
[2018-08-27] MEDS: Acetylcysteine 20% Inhal Soln (4ml) IH SCH ×4 (01:53→20:20)
[2018-08-27] MEDS: Levalbuterol 0.63 MG/3 ML Inhal Soln UD IH SCH ×4 (01:53→20:20)
[2018-08-27] MEDS: Pantoprazole 40 mg EC Tab PO SCH (05:40)
[2018-08-27 06:58] LABS: BASO # 0.02 K/mm3 (0.0-2.0); BASO % 0.3 % (0.0-3.0); EOS # 0.9 (0.0-0.7); EOS % 15.1 % (1.5-5.0); HEMOGLOBIN 10.7 g/dL (14.0-18.0); LYMPH # 0.8 (1.2-3.4); LYMPH % 13.3 % (22.0-35.0); MEAN CELL VOLUME 88.4 fl (80.0-105.0); MEAN CORPUSCULAR HGB CONC 30.5 g/dl (31.0-37.0); MONO # 0.7 (0.1-0.6); MONO % 11.8 % (1.0-6.0); RBC 3.97 10^6/uL (3.5-6.1); RED CELL DISTRIBUTION WIDTH 13.9 % (11.5-14.5); WHITE BLOOD COUNT 5.8 10^3/uL (4.5-11.0)
[2018-08-27 07:31] LABS: ALB/GLOB RATIO 0.7 (1.1-1.8); ALBUMIN 2.3 g/dL (3.0-4.8); ALT/SGPT 18 U/L (7-56); AST/SGOT 54 U/L (17-59); BILIRUBIN,DIRECT 0.2 mg/dL (0.0-0.4); BLOOD UREA NITROGEN 12 mg/dL (7-21); CALCIUM 7.9 mg/dL (8.4-10.5); GFR NON-AFRICAN AMERICAN > 60
--- NOTE | 2018-08-27 08:12 | CP.PCM.PCO ---
Physician Communication Note - Physician Communication Note Physician Communication Note: Robert: cons wound Rx/can f/u office
--- NOTE | 2018-08-27 09:46 | CP.PCM.PN ---
<Juancho Vides - Last Filed: 08/27/18 13:37> Subjective - Date & Time of Evaluation Date of Evaluation: 08/27/18 Time of Evaluation: 07:40 - Subjective Subjective: Infectious disease progress note: Patient seen and examined at bedside. No acute events overnight. No complaints. Denies any lower ext pain. No fevers. 12 point ROS performed and negative other than stated above. Objective - Vital Signs/Intake and Output Vital Signs (last 24 hours): Temp Pulse Resp BP Pulse Ox 99.6 F 100 H 18 144/67 90 L 08/27/18 06:00 08/27/18 08:24 08/27/18 06:00 08/27/18 08:24 08/27/18 06:00 Intake and Output: 08/27/18 08/27/18 06:59 18:59 Intake Total 420 Output Total 300 Balance 120 - Medications Medications: Current Medications Acetaminophen (Tylenol 325mg Tab) 650 mg PO Q6 PRN PRN Reason: TEMP>=99.5F Last Admin: 08/25/18 04:15 Dose: 650 mg Acetaminophen (Tylenol 650 Mg Supp) 650 mg RC Q6H PRN PRN Reason: TEMP>=99.5F Acetylcysteine (Acetylcysteine 20%) 4 ml IH [id number] [facility] Last Admin: 08/27/18 07:23 Dose: 4 ml Collagenase (Santyl) 0 gm TOP DAILY [facility] Last Admin: 08/26/18 10:01 Dose: 1 appl Cyanocobalamin (Vitamin B12 1000 Mcg/Ml Inj) 1,000 mcg IM DAILY [facility] Stop: 09/04/18 10:01 Last Admin: 08/26/18 15:46 Dose: 1,000 mcg Diphenhydramine HCl (Benadryl) 50 mg IVP Q6H PRN PRN Reason: Agitation Ergocalciferol (Drisdol 50,000 Intl Units Cap) 1 cap PO Q7D [facility] Last Admin: 08/26/18 15:49 Dose: 1 cap Folic Acid (Folic Acid) 1 mg PO DAILY [facility] Last Admin: 08/26/18 15:49 Dose: 1 mg Heparin Sodium (Porcine) (Heparin) 5,000 units SC Q8 [facility]; Protocol Last Admin: 08/27/18 05:39 Dose: Not Given Vancomycin HCl 1.25 gm/ Sodium (Chloride) 250 mls @ 167 mls/hr IVPB Q12 [facility]; Protocol Last Admin: 08/26/18 22:03 Dose: 167 mls/hr Lactated Ringer's (Lactated Ringer's) 1,000 mls @ 100 mls/hr IV .Q10H [facility] Stop: 08/27/18 10:44 Last Admin: 08/26/18 05:49 Dose: 100 mls/hr Iron Sucrose 200 mg/ Sodium (Chloride) 110 mls @ 110 mls/hr IVPB DAILY [facility] Stop: 08/30/18 10:59 Last Admin: 08/26/18 15:47 Dose: 110 mls/hr Levalbuterol HCl (Xopenex) 0.63 mg IH [id number] [facility] Last Admin: 08/27/18 07:23 Dose: 0.63 mg Lorazepam (Ativan) 1 mg IVP Q6H PRN; Protocol PRN Reason: Anxiety Lorazepam (Ativan) 2 mg IVP ONCE PRN; Protocol PRN Reason: Anxiety Metoprolol Tartrate (Lopressor) 25 mg PO BRKDIN [facility] Last Admin: 08/27/18 08:24 Dose: 25 mg Morphine Sulfate (Morphine Extended Release Tab) 90 mg PO Q12 [facility] Last Admin: 08/26/18 22:03 Dose: 90 mg Mupirocin (Bactroban Ointment) 0 gm TOP BID [facility] Last Admin: 08/26/18 18:53 Dose: 1 appl Nicotine (Nicoderm Cq) 1 patch TD DAILY [facility] Last Admin: 08/26/18 09:35 Dose: 1 patch Ondansetron HCl (Zofran Inj) 4 mg IVP Q4H PRN PRN Reason: Nausea/Vomiting Pantoprazole Sodium (Protonix Ec Tab) 40 mg PO 0600 [facility] Last Admin: 08/27/18 05:40 Dose: Not Given Polyethylene Glycol (Miralax) 17 gm PO BID [facility] Last Admin: 08/26/18 18:55 Dose: 17 gm - Labs Labs: 08/27/18 06:30 08/27/18 06:30 PT 15.1 SECONDS (9.4-12.5) H 08/23/18 22:20 INR 1.36 08/23/18 22:20 APTT 27.9 Seconds (26.9-38.3) 08/23/18 22:20 - Constitutional Appears: No Acute Distress - Head Exam Head Exam: ATRAUMATIC, NORMOCEPHALIC - Eye Exam Eye Exam: EOMI - ENT Exam ENT Exam: Mucous Membranes Moist - Respiratory Exam Respiratory Exam: Clear to Ausculation Bilateral. absent: Rales, Rhonchi, Wheezes - Cardiovascular Exam Cardiovascular Exam: REGULAR RHYTHM, +S1, +S2 - GI/Abdominal Exam GI & Abdominal Exam: Soft. absent: Tenderness - Extremities Exam Extremities Exam: absent: Calf Tenderness, Pedal Edema Additional comments: dressing in plac by podiatry - Neurological Exam Neurological Exam: Alert, Awake, Oriented x3 - Psychiatric Exam Psychiatric exam: Normal Mood - Skin Skin Exam: Normal Color, Warm Assessment and Plan - Assessment and Plan (Free Text) Assessment: 68-year-old male with past medical history of chronic back pain, vertebral disc disease, presents to the ED with bilateral foot pain and skin ulcers. Found to have left lower extremity wound, and bilateral LE venous stasis dermatitis. Continue with abx with vancomycin Wound cx - L foot: Morg Morganii & MRSA, Skin Ulcer with Gram neg clifton (likely colonization), R foot with Proteus Follow-up podiatry and vasc surgery consult and recs F/u lower extremity CT, and abdominal CT - both shows R gluteal sacral decub with, no osteo Follow-up lower extremity ultrasound - possible b/l SFA, popliteal,and trifurcation dx Awaiting MRI of lower ext,and Pelvis Cont to monitor Case and plan was reviewed and discussed with Dr. Kelley <Chris Kelley - Last Filed: 08/27/18 16:28> Objective - Vital Signs/Intake and Output Vital Signs (last 24 hours): Temp Pulse Resp BP Pulse Ox 99.6 F 100 H 18 144/67 90 L 08/27/18 06:00 08/27/18 08:24 08/27/18 06:00 08/27/18 08:24 08/27/18 06:00 Intake and Output: 08/27/18 08/27/18 06:59 18:59 Intake Total 420 Output Total 300 Balance 120 - Medications Medications: Current Medications Acetaminophen (Tylenol 325mg Tab) 650 mg PO Q6 PRN PRN Reason: TEMP>=99.5F Last Admin: 08/27/18 14:58 Dose: 650 mg Acetaminophen (Tylenol 650 Mg Supp) 650 mg RC Q6H PRN PRN Reason: TEMP>=99.5F Acetylcysteine (Acetylcysteine 20%) 4 ml IH [id number] [facility] Last Admin: 08/27/18 13:37 Dose: 4 ml Collagenase (Santyl) 0 gm TOP DAILY [facility] Last Admin: 08/26/18 10:01 Dose: 1 appl Cyanocobalamin (Vitamin B12 1000 Mcg/Ml Inj) 1,000 mcg IM DAILY [facility] Stop: 09/04/18 10:01 Last Admin: 08/27/18 10:58 Dose: 1,000 mcg Diphenhydramine HCl (Benadryl) 50 mg IVP Q6H PRN PRN Reason: Agitation Ergocalciferol (Drisdol 50,000 Intl Units Cap) 1 cap PO Q7D [facility] Last Admin: 08/26/18 15:49 Dose: 1 cap Folic Acid (Folic Acid) 1 mg PO DAILY [facility] Last Admin: 08/27/18 10:58 Dose: 1 mg Heparin Sodium (Porcine) (Heparin) 5,000 units SC Q8 [facility]; Protocol Last Admin: 08/27/18 14:36 Dose: 5,000 units Vancomycin HCl 1.25 gm/ Sodium (Chloride) 250 mls @ 167 mls/hr IVPB Q12 [facility]; Protocol Last Admin: 08/27/18 12:36 Dose: 167 mls/hr Iron Sucrose 200 mg/ Sodium (Chloride) 110 mls @ 110 mls/hr IVPB DAILY [facility] Stop: 08/30/18 10:59 Last Admin: 08/27/18 10:59 Dose: 110 mls/hr Levalbuterol HCl (Xopenex) 0.63 mg IH [id number] [facility] Last Admin: 08/27/18 13:37 Dose: 0.63 mg Lorazepam (Ativan) 1 mg IVP Q6H PRN; Protocol PRN Reason: Anxiety Lorazepam (Ativan) 2 mg IVP ONCE PRN; Protocol PRN Reason: Anxiety Metoprolol Tartrate (Lopressor) 25 mg PO BRKDIN [facility] Last Admin: 08/27/18 08:24 Dose: 25 mg Morphine Sulfate (Morphine Extended Release Tab) 90 mg PO Q12 [facility] Last Admin: 08/27/18 10:39 Dose: 90 mg Mupirocin (Bactroban Ointment) 0 gm TOP BID [facility] Last Admin: 08/27/18 11:02 Dose: 1 appl Nicotine (Nicoderm Cq) 1 patch TD DAILY [facility] Last Admin: 08/27/18 10:58 Dose: 1 patch Ondansetron HCl (Zofran Inj) 4 mg IVP Q4H PRN PRN Reason: Nausea/Vomiting Pantoprazole Sodium (Protonix Ec Tab) 40 mg PO 0600 [facility] Last Admin: 08/27/18 05:40 Dose: Not Given Polyethylene Glycol (Miralax) 17 gm PO BID [facility] Last Admin: 08/27/18 10:39 Dose: 17 gm - Labs Labs: 08/27/18 06:30 08/27/18 06:30 PT 15.1 SECONDS (9.4-12.5) H 08/23/18 22:20 INR 1.36 08/23/18 22:20 APTT 27.9 Seconds (26.9-38.3) 08/23/18 22:20 Assessment and Plan - Assessment and Plan (Free Text) Assessment: Infectious diseases Attending Physician Attestation Patient seen and examined, discussed with medical orderly. I have reviewed the patient's history of present illness, past medical, social, personal and family histories, pertinent physical exam findings, course so far in this hospital admission, pertinent laboratory and imaging results. I agree with the above findings, assessment and plan. In addition, continue IV Vancomycin for infected feet wounds. Patient is for MRI to rule out osteomyelitis and will await further plans of Podiatry. Wounds grew MRSA, GNB in the wounds may be colonization.
[2018-08-27] MEDS: POLYETHYLENE GLYCOL 3350 17 GM/Dose PACKET PO SCH ×2 (10:39→18:00)
[2018-08-27] MEDS: Morphine 30 mg SR Tab PO SCH ×2 (10:39→22:41)
[2018-08-27] MEDS: Collagenase 250 Units/gm Ointment(30 gm) TOP SCH (11:00)
[2018-08-27] MEDS: Mupirocin 2% Ointment 15 GM TUBE TOP SCH ×2 (11:02→19:00)
--- NOTE | 2018-08-27 13:34 | PN ---
DATE: 08/27/2018 I am seeing the patient for Dr. Hernandez. The patient is seen in [facility] in [place]. The patient's room number is 561, bed 2. SUBJECTIVE: The patient was admitted through the emergency room. The patient had multiple wounds of the leg, also wounds in the gluteal area of the right leg. The patient has pain in the foot. The patient also has sacral decubitus. He has past history of chronic lung disease, hypertension. The patient has altered mental state and is seen this morning and talk to the patient. The patient seems to be cooperative and he is aware of all the treatment that we provided. ALLERGIES: THE PATIENT IS ALLERGIC TO PENICILLIN. PHYSICAL EXAMINATION: VITAL SIGNS: The pulse is 100, blood pressure 144/67, respirations are 18 per minute, O2 sat is 90% on room air. HEENT: The patient's head is normocephalic. The face, there is no evidence of any blemishes. NECK: The thyroid is not enlarged. JVP is flat. LUNGS: Trachea central. Breath sounds diminished bilaterally. Has rhonchi occasionally heard. HEART: Normal sinus rhythm. S1 and S2 present. ABDOMEN: Soft. Liver and spleen not palpable. CENTRAL NERVOUS SYSTEM: The patient is conscious, oriented, and responsive to questions. MEDICATIONS: The patient medications listed. The patient is on respiratory treatment. The patient gets Mucomyst with the treatment. The patient also on Ativan for agitation. The patient is also given vitamin D 50,000 units once a week, heparin for prophylaxis. The patient gets wound care. The patient is on vancomycin for wound infection with MRSA. The patient also gets Zofran for nausea and vomiting. LABORATORY DATA: Blood work done in the hospital. The current hemoglobin is 10.7, white count is 5,800, the patient's platelet count is 277,000. His ESR is over 100. The patient's other test results were not contributory to the current problem. The patient has had chest x-rays, foot x-rays are done to rule out osteomyelitis. The patient's EKG is also done was within normal range. We will continue all the medications, mainly with the antibiotics and wound care will be done for him and we will followup. Donovan Aleman MD [facility] # [id number]
--- NOTE | 2018-08-27 13:56 | PN ---
DATE: 08/27/2018 LOCATION: The patient is in [facility] in [place], in room 561, bed 2. This is a 68-year-old male. The patient is under the care of Dr. Carlos Hernandez. I'm covering for him today. SUBJECTIVE: The patient is seen this morning. He is awake. He is pleasant and on reviewing his case, I find that the patient has history of infection; the patient has history of heart failure and the patient has also history of blood pressure elevation. The patient is also on treatment for benign prostatic hyperplasia, gastritis, and hypothyroidism. The patient does have venous stasis inflammation of the legs. PHYSICAL EXAMINATION: VITAL SIGNS: Today, the patient's pulse is 100, blood pressure 144/67, respiration 19, O2 saturation on room air. HEENT: The patient's head is normocephalic. LUNGS: Had crepitations bilaterally; diminished breath sounds. HEART: Normal sinus rhythm. S1 and S2 present. No murmurs. ABDOMEN: Soft. Liver and spleen are not palpable. CENTRAL NERVOUS SYSTEM: No focal deficits. full retention and venous stasis. LABORATORY DATA: The patient's lab results; the patient's white count is 5800. His hemoglobin is 10.7. He had chronic anemia. The patient's chemistry; the renal function seemed to be in good shape. The patient's sodium and potassium are within normal range. His uric acid was not done. His total iron is low, but the patient has iron deficiency anemia. The patient has liver enzymes mildly elevated. MEDICATIONS: The patient is on vancomycin every 12 hours. The patient is on vitamin B12 and Xopenex for chronic lung disease. ASSESSMENT AND PLAN: The patient gets care for the leg stasis. His condition seemed to be clinically stable, but needs acute care for infection and congestive heart failure. Donovan Aleman MD
--- NOTE | 2018-08-27 14:06 | CP.PCM.PN ---
<Jonathan Liufredy - Last Filed: 08/27/18 14:02> Subjective - Date & Time of Evaluation Date of Evaluation: 08/27/18 Time of Evaluation: 14:02 - Subjective Subjective: Podiatry consult note for Dr. Lloyd 68 y/o seen and evaluated for infected skin ulcers and b/l foot pain worsening for the past 3 weeks. Patient in much better spirits today. Patient denies any acute overnight events. Objective - Vital Signs/Intake and Output Vital Signs (last 24 hours): Temp Pulse Resp BP Pulse Ox 99.6 F 100 H 18 144/67 90 L 08/27/18 06:00 08/27/18 08:24 08/27/18 06:00 08/27/18 08:24 08/27/18 06:00 Intake and Output: 08/27/18 08/27/18 06:59 18:59 Intake Total 420 Output Total 300 Balance 120 - Medications Medications: Current Medications Acetaminophen (Tylenol 325mg Tab) 650 mg PO Q6 PRN PRN Reason: TEMP>=99.5F Last Admin: 08/25/18 04:15 Dose: 650 mg Acetaminophen (Tylenol 650 Mg Supp) 650 mg RC Q6H PRN PRN Reason: TEMP>=99.5F Acetylcysteine (Acetylcysteine 20%) 4 ml IH [id number] [facility] Last Admin: 08/27/18 13:37 Dose: 4 ml Collagenase (Santyl) 0 gm TOP DAILY [facility] Last Admin: 08/26/18 10:01 Dose: 1 appl Cyanocobalamin (Vitamin B12 1000 Mcg/Ml Inj) 1,000 mcg IM DAILY [facility] Stop: 09/04/18 10:01 Last Admin: 08/27/18 10:58 Dose: 1,000 mcg Diphenhydramine HCl (Benadryl) 50 mg IVP Q6H PRN PRN Reason: Agitation Ergocalciferol (Drisdol 50,000 Intl Units Cap) 1 cap PO Q7D [facility] Last Admin: 08/26/18 15:49 Dose: 1 cap Folic Acid (Folic Acid) 1 mg PO DAILY [facility] Last Admin: 08/27/18 10:58 Dose: 1 mg Heparin Sodium (Porcine) (Heparin) 5,000 units SC Q8 [facility]; Protocol Last Admin: 08/27/18 05:39 Dose: Not Given Vancomycin HCl 1.25 gm/ Sodium (Chloride) 250 mls @ 167 mls/hr IVPB Q12 [facility]; Protocol Last Admin: 08/27/18 12:36 Dose: 167 mls/hr Iron Sucrose 200 mg/ Sodium (Chloride) 110 mls @ 110 mls/hr IVPB DAILY [facility] Stop: 08/30/18 10:59 Last Admin: 08/27/18 10:59 Dose: 110 mls/hr Levalbuterol HCl (Xopenex) 0.63 mg IH [id number] [facility] Last Admin: 08/27/18 13:37 Dose: 0.63 mg Lorazepam (Ativan) 1 mg IVP Q6H PRN; Protocol PRN Reason: Anxiety Lorazepam (Ativan) 2 mg IVP ONCE PRN; Protocol PRN Reason: Anxiety Metoprolol Tartrate (Lopressor) 25 mg PO BRKDIN [facility] Last Admin: 08/27/18 08:24 Dose: 25 mg Morphine Sulfate (Morphine Extended Release Tab) 90 mg PO Q12 [facility] Last Admin: 08/27/18 10:39 Dose: 90 mg Mupirocin (Bactroban Ointment) 0 gm TOP BID [facility] Last Admin: 08/27/18 11:02 Dose: 1 appl Nicotine (Nicoderm Cq) 1 patch TD DAILY [facility] Last Admin: 08/27/18 10:58 Dose: 1 patch Ondansetron HCl (Zofran Inj) 4 mg IVP Q4H PRN PRN Reason: Nausea/Vomiting Pantoprazole Sodium (Protonix Ec Tab) 40 mg PO 0600 [facility] Last Admin: 08/27/18 05:40 Dose: Not Given Polyethylene Glycol (Miralax) 17 gm PO BID [facility] Last Admin: 08/27/18 10:39 Dose: 17 gm - Labs Labs: 08/27/18 06:30 08/27/18 06:30 PT 15.1 SECONDS (9.4-12.5) H 08/23/18 22:20 INR 1.36 08/23/18 22:20 APTT 27.9 Seconds (26.9-38.3) 08/23/18 22:20 - Constitutional Appears: Well, Non-toxic, No Acute Distress - Head Exam Head Exam: ATRAUMATIC, NORMOCEPHALIC - Extremities Exam Additional comments: Bilateral Lower Extremity Exam VASC: DP and PT non-palpable, TG warm to warm bilaterally, significant lymph edema noted bilaterally, non-pitting NEURO: grossly intact DERM: LEFT- 0.5 cm X 0.5 cm wound noted to submetatarsal 1 head, fibrotic base, minimal drainage, no tunneling, tracking or probe to bone, positive malodor, multiple superficial wounds noted to the lateral aspect of the left ankle with granular skin base, no drainage, no probe to bone, no tunneling or tracking, no malodor, chronic skin trophic changes secondary to long standing peripheral vascular disease RIGHT- superficial wound noted to the lateral aspect of the leg at the site of previous chronic skin trophic changes secondary to long standing peripheral vascular disease, wound base 100% granular, minimal serous drainage, mild malodor, no tunneling, tracking or probe to bone ORTHO: pain with range of motion, and on palpation to the feet and legs bialterally - Neurological Exam Neurological Exam: Alert, Awake, Oriented x3 - Psychiatric Exam Psychiatric exam: Normal Affect, Normal Mood Assessment and Plan - Assessment and Plan (Free Text) Assessment: 68 y/o male patient seen and evaluated for bilateral lower extremity wounds Plan: Patient seen and evaluated Discussed in detail with Dr. Lloyd Afebrile, absent leukocytosis Bilateral foot x-ray ordered-no osteo on xray Arterial duplex studies ordered Vascular consult placed, recommendations appreciated Patient refused CT as well, will try MRI again Obtained Left foot wound cultures: MRSA, Morg morgnanii Continue IV Abx Infection Disease consult, recommendations appreciated Wound cleansed with saline and dressed with bactroban, santyl, maxorb, ABD DSD Thank you for the consult Podiatry will continue to follow patient while in house <Kvng Lloyd - Last Filed: 08/27/18 14:36> Objective - Vital Signs/Intake and Output Vital Signs (last 24 hours): Temp Pulse Resp BP Pulse Ox 99.6 F 100 H 18 144/67 90 L 08/27/18 06:00 08/27/18 08:24 08/27/18 06:00 08/27/18 08:24 08/27/18 06:00 Intake and Output: 08/27/18 08/27/18 06:59 18:59 Intake Total 420 Output Total 300 Balance 120 - Medications Medications: Current Medications Acetaminophen (Tylenol 325mg Tab) 650 mg PO Q6 PRN PRN Reason: TEMP>=99.5F Last Admin: 08/25/18 04:15 Dose: 650 mg Acetaminophen (Tylenol 650 Mg Supp) 650 mg RC Q6H PRN PRN Reason: TEMP>=99.5F Acetylcysteine (Acetylcysteine 20%) 4 ml IH [id number] [facility] Last Admin: 08/27/18 13:37 Dose: 4 ml Collagenase (Santyl) 0 gm TOP DAILY [facility] Last Admin: 08/26/18 10:01 Dose: 1 appl Cyanocobalamin (Vitamin B12 1000 Mcg/Ml Inj) 1,000 mcg IM DAILY [facility] Stop: 09/04/18 10:01 Last Admin: 08/27/18 10:58 Dose: 1,000 mcg Diphenhydramine HCl (Benadryl) 50 mg IVP Q6H PRN PRN Reason: Agitation Ergocalciferol (Drisdol 50,000 Intl Units Cap) 1 cap PO Q7D [facility] Last Admin: 08/26/18 15:49 Dose: 1 cap Folic Acid (Folic Acid) 1 mg PO DAILY [facility] Last Admin: 08/27/18 10:58 Dose: 1 mg Heparin Sodium (Porcine) (Heparin) 5,000 units SC Q8 [facility]; Protocol Last Admin: 08/27/18 05:39 Dose: Not Given Vancomycin HCl 1.25 gm/ Sodium (Chloride) 250 mls @ 167 mls/hr IVPB Q12 [facility]; Protocol Last Admin: 08/27/18 12:36 Dose: 167 mls/hr Iron Sucrose 200 mg/ Sodium (Chloride) 110 mls @ 110 mls/hr IVPB DAILY [facility] Stop: 08/30/18 10:59 Last Admin: 08/27/18 10:59 Dose: 110 mls/hr Levalbuterol HCl (Xopenex) 0.63 mg IH [id number] [facility] Last Admin: 08/27/18 13:37 Dose: 0.63 mg Lorazepam (Ativan) 1 mg IVP Q6H PRN; Protocol PRN Reason: Anxiety Lorazepam (Ativan) 2 mg IVP ONCE PRN; Protocol PRN Reason: Anxiety Metoprolol Tartrate (Lopressor) 25 mg PO BRKDIN [facility] Last Admin: 08/27/18 08:24 Dose: 25 mg Morphine Sulfate (Morphine Extended Release Tab) 90 mg PO Q12 [facility] Last Admin: 08/27/18 10:39 Dose: 90 mg Mupirocin (Bactroban Ointment) 0 gm TOP BID [facility] Last Admin: 08/27/18 11:02 Dose: 1 appl Nicotine (Nicoderm Cq) 1 patch TD DAILY [facility] Last Admin: 08/27/18 10:58 Dose: 1 patch Ondansetron HCl (Zofran Inj) 4 mg IVP Q4H PRN PRN Reason: Nausea/Vomiting Pantoprazole Sodium (Protonix Ec Tab) 40 mg PO 0600 [facility] Last Admin: 08/27/18 05:40 Dose: Not Given Polyethylene Glycol (Miralax) 17 gm PO BID [facility] Last Admin: 08/27/18 10:39 Dose: 17 gm - Labs Labs: 08/27/18 06:30 08/27/18 06:30 PT 15.1 SECONDS (9.4-12.5) H 08/23/18 22:20 INR 1.36 08/23/18 22:20 APTT 27.9 Seconds (26.9-38.3) 08/23/18 22:20 Attending/Attestation - Attestation I have personally seen and examined this patient.: Yes I have fully participated in the care of the patient.: Yes I have reviewed all pertinent clinical information, including history, physical exam and plan: Yes
--- NOTE | 2018-08-27 14:46 | CP.PCM.PCO ---
Physician Communication Note - Physician Communication Note Physician Communication Note: patient refused MRI of foot/pelvis, continue antibiotics as per ID
[2018-08-27] MEDS: Magnesium Sulfate 2 gm/50 ml 2 GM/50 ML BAG IVPB SCH (22:43)
[2018-08-28] MEDS: Magnesium Sulfate 2 gm/50 ml 2 GM/50 ML BAG IVPB SCH (00:37)
[2018-08-28] MEDS: Acetylcysteine 20% Inhal Soln (4ml) IH SCH ×5 (02:48→20:39)
[2018-08-28] MEDS: Levalbuterol 0.63 MG/3 ML Inhal Soln UD IH SCH ×5 (02:48→20:39)
[2018-08-28] MEDS: Pantoprazole 40 mg EC Tab PO SCH (05:30)
[2018-08-28] MEDS: Lactated Ringer's 1,000 ML IV SCH (05:31)
[2018-08-28] MEDS: Morphine 30 mg SR Tab PO SCH ×2 (10:35→22:02)
[2018-08-28] MEDS: POLYETHYLENE GLYCOL 3350 17 GM/Dose PACKET PO SCH ×3 (11:00→22:22)
--- NOTE | 2018-08-28 11:35 | CP.PCM.PN ---
<Kishor Liu - Last Filed: 08/28/18 11:32> Subjective - Date & Time of Evaluation Date of Evaluation: 08/28/18 Time of Evaluation: 11:32 - Subjective Subjective: Podiatry consult note for Dr. Lloyd 68 y/o seen and evaluated for infected skin ulcers and b/l foot pain worsening for the past 3 weeks. Patient seen to be resting in bed without any complaints. Patient denies any acute overnight events. Objective - Vital Signs/Intake and Output Vital Signs (last 24 hours): Temp Pulse Resp BP Pulse Ox 98.9 F 100 H 20 132/69 93 L 08/28/18 06:00 08/28/18 06:00 08/28/18 06:00 08/28/18 08:06 08/28/18 06:00 Intake and Output: 08/28/18 08/28/18 06:59 18:59 Intake Total 880 Output Total 425 Balance 455 - Medications Medications: Current Medications Acetaminophen (Tylenol 325mg Tab) 650 mg PO Q6 PRN PRN Reason: TEMP>=99.5F Last Admin: 08/27/18 14:58 Dose: 650 mg Acetaminophen (Tylenol 650 Mg Supp) 650 mg RC Q6H PRN PRN Reason: TEMP>=99.5F Acetylcysteine (Acetylcysteine 20%) 4 ml IH [id number] [facility] Last Admin: 08/28/18 07:26 Dose: 4 ml Collagenase (Santyl) 0 gm TOP DAILY [facility] Last Admin: 08/27/18 11:00 Dose: Not Given Cyanocobalamin (Vitamin B12 1000 Mcg/Ml Inj) 1,000 mcg IM DAILY [facility] Stop: 09/04/18 10:01 Last Admin: 08/28/18 10:36 Dose: 1,000 mcg Diphenhydramine HCl (Benadryl) 50 mg IVP Q6H PRN PRN Reason: Agitation Ergocalciferol (Drisdol 50,000 Intl Units Cap) 1 cap PO Q7D [facility] Last Admin: 08/26/18 15:49 Dose: 1 cap Folic Acid (Folic Acid) 1 mg PO DAILY [facility] Last Admin: 08/28/18 10:35 Dose: 1 mg Heparin Sodium (Porcine) (Heparin) 5,000 units SC Q8 [facility]; Protocol Last Admin: 08/28/18 05:31 Dose: 5,000 units Vancomycin HCl 1.25 gm/ Sodium (Chloride) 250 mls @ 167 mls/hr IVPB Q12 [facility]; Protocol Last Admin: 08/28/18 00:50 Dose: 167 mls/hr Iron Sucrose 200 mg/ Sodium (Chloride) 110 mls @ 110 mls/hr IVPB DAILY [facility] Stop: 08/30/18 10:59 Last Admin: 08/28/18 10:36 Dose: 110 mls/hr Levalbuterol HCl (Xopenex) 0.63 mg IH [id number] [facility] Last Admin: 08/28/18 07:26 Dose: 0.63 mg Lorazepam (Ativan) 1 mg IVP Q6H PRN; Protocol PRN Reason: Anxiety Lorazepam (Ativan) 2 mg IVP ONCE PRN; Protocol PRN Reason: Anxiety Metoprolol Tartrate (Lopressor) 25 mg PO BRKDIN [facility] Last Admin: 08/28/18 08:06 Dose: 25 mg Morphine Sulfate (Morphine Extended Release Tab) 90 mg PO Q12 [facility] Last Admin: 08/28/18 10:35 Dose: 90 mg Mupirocin (Bactroban Ointment) 0 gm TOP BID [facility] Last Admin: 08/27/18 19:00 Dose: Not Given Nicotine (Nicoderm Cq) 1 patch TD DAILY [facility] Last Admin: 08/28/18 10:34 Dose: 1 patch Ondansetron HCl (Zofran Inj) 4 mg IVP Q4H PRN PRN Reason: Nausea/Vomiting Pantoprazole Sodium (Protonix Ec Tab) 40 mg PO 0600 [facility] Last Admin: 08/28/18 05:30 Dose: 40 mg Polyethylene Glycol (Miralax) 17 gm PO BID [facility] Last Admin: 08/27/18 10:39 Dose: 17 gm - Labs Labs: 08/27/18 06:30 08/27/18 06:30 PT 15.1 SECONDS (9.4-12.5) H 08/23/18 22:20 INR 1.36 08/23/18 22:20 APTT 27.9 Seconds (26.9-38.3) 08/23/18 22:20 - Constitutional Appears: Well, Non-toxic, No Acute Distress - Head Exam Head Exam: ATRAUMATIC, NORMOCEPHALIC - Extremities Exam Additional comments: Bilateral Lower Extremity Exam VASC: DP and PT non-palpable, TG warm to warm bilaterally, significant lymphedema noted bilaterally, non-pitting NEURO: grossly intact DERM: LEFT- 0.5 cm X 0.5 cm wound noted to submetatarsal 1 head, fibrotic base, minimal drainage, no tunneling, tracking or probe to bone, positive malodor, multiple superficial wounds noted to the lateral aspect of the left ankle with granular skin base, no drainage, no probe to bone, no tunneling or tracking, no malodor, chronic skin trophic changes secondary to long standing peripheral vascular disease RIGHT- superficial wound noted to the lateral aspect of the leg at the site of previous chronic skin trophic changes secondary to long standing peripheral vascular disease, wound base 100% granular, minimal serous drainage, mild malodor, no tunneling, tracking or probe to bone ORTHO: pain with range of motion, and on palpation to the feet and legs bialterally - Neurological Exam Neurological Exam: Alert, Awake, Oriented x3 - Psychiatric Exam Psychiatric exam: Normal Affect, Normal Mood Assessment and Plan - Assessment and Plan (Free Text) Assessment: 68 y/o male patient seen and evaluated for bilateral lower extremity wounds Plan: Patient seen and evaluated with Dr. Lloyd Discussed in detail with Dr. Lloyd Afebrile, absent leukocytosis Bilateral foot x-ray ordered-no osteo on xray Vascular consult placed, recommendations appreciated Patient refused CT and MRI , states it is too painful Obtained Left foot wound cultures: MRSA, Kog roxanneanii Continue IV Abx Infection Disease consult, recommendations appreciated Wound cleansed with saline and dressed with bactroban, maxorb, adaptic, ABD DSD Thank you for the consult Podiatry will continue to follow patient while in house <Kvng Lloyd - Last Filed: 08/30/18 09:28> Objective - Vital Signs/Intake and Output Vital Signs (last 24 hours): Temp Pulse Resp BP Pulse Ox 98.6 F 129 H 20 120/56 L 100 08/30/18 06:12 08/30/18 09:17 08/30/18 06:12 08/30/18 09:17 08/30/18 06:12 Intake and Output: 08/30/18 08/30/18 06:59 18:59 Intake Total 660 Output Total 500 Balance 160 - Medications Medications: Current Medications Acetaminophen (Tylenol 325mg Tab) 650 mg PO Q6 PRN PRN Reason: TEMP>=99.5F Last Admin: 08/30/18 01:53 Dose: 650 mg Acetaminophen (Tylenol 650 Mg Supp) 650 mg RC Q6H PRN PRN Reason: TEMP>=99.5F Acetylcysteine (Acetylcysteine 20%) 4 ml IH [id number] [facility] Last Admin: 08/30/18 07:58 Dose: 4 ml Bisacodyl (Dulcolax) 10 mg RC HS PRN PRN Reason: Constipation Collagenase (Santyl) 0 gm TOP DAILY [facility] Last Admin: 08/29/18 19:00 Dose: 1 appl Cyanocobalamin (Vitamin B12 1000 Mcg/Ml Inj) 1,000 mcg IM DAILY [facility] Stop: 09/04/18 10:01 Last Admin: 08/29/18 09:34 Dose: 1,000 mcg Enoxaparin Sodium (Lovenox) 80 mg SC Q12H [facility]; Protocol Last Admin: 08/29/18 21:25 Dose: 80 mg Ergocalciferol (Drisdol 50,000 Intl Units Cap) 1 cap PO Q7D [facility] Last Admin: 08/26/18 15:49 Dose: 1 cap Folic Acid (Folic Acid) 1 mg PO DAILY [facility] Last Admin: 08/29/18 09:34 Dose: 1 mg Vancomycin HCl 1.25 gm/ Sodium (Chloride) 250 mls @ 167 mls/hr IVPB Q12 [facility]; Protocol Last Admin: 08/29/18 21:31 Dose: 167 mls/hr Iron Sucrose 200 mg/ Sodium (Chloride) 110 mls @ 110 mls/hr IVPB DAILY [facility] Stop: 08/30/18 10:59 Last Admin: 08/29/18 09:58 Dose: 110 mls/hr Sodium Chloride (Sodium Chloride 0.9%) 1,000 mls @ 50 mls/hr IV .Q20H [facility] Last Admin: 08/30/18 01:51 Dose: 50 mls/hr Meropenem (Merrem Iv 1 Gm Premix) 1 gm in 50 mls @ 100 mls/hr IVPB Q8 [facility]; Protocol Stop: 09/04/18 09:16 Lactic Acid (Lac-Hydrin 12% Cream (140 G)) 0 ea TOP DAILY [facility] Last Admin: 08/29/18 09:36 Dose: 1 applic Levalbuterol HCl (Xopenex) 0.63 mg IH [id number] [facility] Last Admin: 08/30/18 07:58 Dose: 0.63 mg Lorazepam (Ativan) 1 mg IVP Q6H PRN; Protocol PRN Reason: Anxiety Lorazepam (Ativan) 2 mg IVP ONCE PRN; Protocol PRN Reason: Anxiety Metoprolol Tartrate (Lopressor) 50 mg PO Q8H [facility] Last Admin: 08/30/18 09:17 Dose: 50 mg Morphine Sulfate (Morphine Extended Release Tab) 90 mg PO Q12 [facility] Last Admin: 08/29/18 21:27 Dose: 90 mg Mupirocin (Bactroban Ointment) 0 gm TOP BID [facility] Last Admin: 08/29/18 17:13 Dose: Not Given Nicotine (Nicoderm Cq) 1 patch TD DAILY [facility] Last Admin: 08/29/18 09:35 Dose: 1 patch Ondansetron HCl (Zofran Inj) 4 mg IVP Q4H PRN PRN Reason: Nausea/Vomiting Pantoprazole Sodium (Protonix Ec Tab) 40 mg PO 0600 [facility] Last Admin: 08/30/18 05:33 Dose: 40 mg Polyethylene Glycol (Miralax) 17 gm PO DAILY [facility] - Labs Labs: 08/30/18 07:05 08/30/18 07:05 PT 15.1 SECONDS (9.4-12.5) H 08/23/18 22:20 INR 1.36 08/23/18 22:20 APTT 27.9 Seconds (26.9-38.3) 08/23/18 22:20 Attending/Attestation - Attestation I have personally seen and examined this patient.: Yes I have fully participated in the care of the patient.: Yes I have reviewed all pertinent clinical information, including history, physical exam and plan: Yes
[2018-08-28] MEDS: Ammonium Lactate 12% Cream (140 g) TOP SCH (14:30)
[2018-08-28] MEDS: Collagenase 250 Units/gm Ointment(30 gm) TOP SCH (14:30)
[2018-08-28 15:03] LABS: BASO # 0.03 K/mm3 (0.0-2.0); BASO % 0.4 % (0.0-3.0); EOS # 0.8 (0.0-0.7); EOS % 12.4 % (1.5-5.0); HEMOGLOBIN 10.9 g/dL (14.0-18.0); LYMPH # 0.8 (1.2-3.4); LYMPH % 11.8 % (22.0-35.0); MEAN CELL VOLUME 88.5 fl (80.0-105.0); MEAN CORPUSCULAR HEMOGLOBIN 27.3 pg (25.0-35.0); MEAN CORPUSCULAR HGB CONC 30.8 g/dl (31.0-37.0); MONO # 0.5 (0.1-0.6); MONO % 7.8 % (1.0-6.0); RED CELL DISTRIBUTION WIDTH 14.1 % (11.5-14.5); WHITE BLOOD COUNT 6.7 10^3/uL (4.5-11.0)
[2018-08-28 15:35] LABS: ALB/GLOB RATIO 0.6 (1.1-1.8); ALBUMIN 2.3 g/dL (3.0-4.8); ALT/SGPT 29 U/L (7-56); AST/SGOT 71 U/L (17-59); BILIRUBIN,DIRECT 0.3 mg/dL (0.0-0.4); BLOOD UREA NITROGEN 12 mg/dL (7-21); CALCIUM 7.5 mg/dL (8.4-10.5); GFR NON-AFRICAN AMERICAN > 60
[2018-08-28] MEDS: Mupirocin 2% Ointment 15 GM TUBE TOP SCH (17:59)
[2018-08-28] MEDS ORDERED: Sodium Chloride 0.9% 1,000 ML IV SCH ×2 (18:30→19:45)
[2018-08-28 18:59] LABS: ARTERIAL BLOOD GAS HCO3 27.3 mmol/L (21-28); ARTERIAL BLOOD GAS HEMOGLOBIN 9.9 g/dL (11.7-17.4); ARTERIAL BLOOD GAS O2 CAPACITY 13.5 mL/dl (16-24); ARTERIAL BLOOD GAS O2 SAT 81.3 % (95-98); ARTERIAL BLOOD GAS PCO2 43 mm/Hg (35-45); ARTERIAL BLOOD GAS PH 7.41 (7.35-7.45); ARTERIAL BLOOD GAS TCO2 28.6 mmol.L (22-28)
[2018-08-28 19:18] LABS: B-TYPE NATRIURETIC PEPTIDE 3910 pg/mL (0-450)
[2018-08-28 21:37] LABS: ARTERIAL BLOOD GAS HCO3 29.2 mmol/L (21-28); ARTERIAL BLOOD GAS O2 CONTENT 12.9 ML/dl (15-23); ARTERIAL BLOOD GAS O2 SAT 86.2 % (95-98); ARTERIAL BLOOD GAS PCO2 46 mm/Hg (35-45); ARTERIAL BLOOD GAS PH 7.41 (7.35-7.45); ARTERIAL BLOOD GAS TCO2 30.6 mmol.L (22-28)
[2018-08-28 22:59] LABS: TROPONIN I < 0.01 ng/mL
--- NOTE | 2018-08-28 23:28 | PN ---
DATE: 08/28/2018 SUBJECTIVE: The patient is in bed, in no acute distress, was seen earlier today. No fevers and no chills. PHYSICAL EXAMINATION: VITAL SIGNS: Temperature is 100.9, blood pressure is 110/60, respiratory rate of 18. HEENT: Unremarkable. NECK: Supple. LUNGS: Decreased breath sounds. HEART: Normal S1, S2. ABDOMEN: Soft. LABORATORY DATA: Noted. White count of 6.7, hemoglobin of 10. Chemistries are noted. Microbiology is reviewed. Review of orders reveals the patient's vancomycin requires renewal which we will do so. ASSESSMENT AND PLAN: This is a 68-year-old male who was seen earlier in room 561, bed 2 with chronic back pain, vertebral disk disease, presents with bilateral foot pain, skin ulcers and found to have left lower extremity wound and skin and soft tissue infection, bilateral lower extremity venous stasis, on vancomycin. We will follow with you. We are waiting for imaging and further recommendations. Roby Siegel MD
[2018-08-28] MEDS ORDERED: Iohexol 350 MG/100 ML VIAL ONE (23:54)
--- NOTE | 2018-08-29 00:04 | PN ---
DATE: 08/28/2018 SUBJECTIVE: The patient is seen lying in the room 561, bed 2. The patient was seen early intervention school psychologist around 8:30 to 9:00 a.m., then later on the patient was again followed up afternoon. The patient is seen lying in the bed. The patient is alert, awake, responsive. In no distress. The patient is lying on the specialty mattress bed. PHYSICAL EXAMINATION GENERAL: The patient is seen lying in the bed. The patient is comfortable, but in no distress. VITAL SIGNS: T-max is 100.9, heart rate 100 to 104. Blood pressure 110/60, 132/69, 132/69, respiration 20, O2 sat is 93%-90% on room air. HEENT: Head is normocephalic, atraumatic. HEENT examination shows pinkish pale conjunctivae. Dry oral mucosa. NECK: No neck rigidity. CHEST: Kyphosis. CARDIOPULMONARY: S1, S2. tachycardic rhythm. LUNGS: Shows positive rhonchi, decreased breath sound at the bases. ABDOMEN: Soft. Positive bowel sounds. No palpable hepatosplenomegaly. GENITALIA: Male. RECTAL: Deferred. EXTREMITIES: Shows chronic venous stasis dermatitis and chronic skin changes of the lower extremity. Positive various stages of decubitus ulceration of the sacrum, gluteal area, posterior thigh noted, elongated dystrophic toenails noted and poor foot hygiene noted. DIAGNOSTICS: Diagnostics, which is available around 03:00 p.m. to 04:00 p.m. which was reviewed. WBC 6.7, hemoglobin/hematocrit 11 and 35.4, platelet 266. The patient had two ABGs done which shows pH of 7.41, pCO2 of 20, PCO 43 and 46, pO2 41 and 46, bicarb 27 and 29, saturation was 81% to 86%. Sodium 129, potassium 3.7, chloride 96, CO2 31, anion gap 6, BUN 12, creatinine 0.8, GFR is greater than 60, glucose 137, calcium 7.5, phosphorus 3.5, magnesium 2.0, AST 71, BNP 3910, albumin 2.3. IMPRESSION: 1. Acute hypoxemia. 2. Tachycardia. 3. Low-grade fever. 4. Normocytic anemia. 5. Elevated erythrocyte sedimentation rate of 110. 6. Severe acute hypoxemia. 7. Hyponatremia. 8. Status post hyperkalemia. 9. Hyperglycemia. 10. Hypocalcemia. 11. Iron deficiency. 12. Transaminitis. 13. Questionable congestive heart failure with with elevated ProBNP. 14. Hypovitaminosis D. 15. Vitamin B12 deficiency. 16. Urine drug screen positive for opiates and cannabinoids. 17. Morganella morganii and methicillin-resistant Staphylococcus aureus, left foot cellulitis. 18. Proteus penneri, right leg ulceration. 19. Providencia rettgeri and corynebacterium species, leg cellulitis. 20. Proteus penneri, Providencia rettgeri, corynebacterium species, Morganella morganii and methicillin-resistant Staphylococcus aureus of bilateral lower extremity cellulitis and ulceration. 21. Status post packed red blood cell transfusion x1. 22. Possible bilateral distal superficial femoral artery popliteal and trifurcation peripheral vascular disease. 23. Right bundle-branch block. 24. Bilateral lower extremity wounds. 25. Questionable noncompliance with refusal to do MRI and further testing. 26. Anxiety disorder. 27. Narcotic-dependent pain syndrome. 28. Iron-deficiency normocytic anemia. 29. Constipation. 30. Severe gait dysfunction and bedridden status. 31. Fever, etiology undetermined. PLAN: At this time, the patient is to be transferred to telemetry for severe hypoxemia. The patient was started on oxygen therapy with 40% to 50% face mask. The patient is to be continued on nebulizer treatment. The patient has been ordered transfer the patient to telemetry, serial cardiac enzymes, serial EKG. D-dimer ordered. Repeat blood cultures, urine cultures ordered. CURRENT CONSULTATION: Surgery, Infectious Disease, Interventional Radiology, Gastroenterology, Hematology/Oncology and Podiatry.. Cardiology consultation has been requested for evaluation of possible questionable CHF. MEDICATIONS: The patient has been ordered Mucomyst nebulizer 4 mL 20% every 6 hours, Ativan 1 mg IV every 6 p.r.n., Bactroban cream, Benadryl 50 IV every 6 p.r.n. which will be discontinued, Drisdol 50,000 units weekly, Dulcolax 10 mg at bedtime, suppository p.r.n., folic acid 1 mg daily, heparin 5000 subcutaneously every 8, Venofer 200 mg IV daily, Lac-Hydrin lotion, Lopressor 25 mg p.o. every 8, MiraLax 17 g will be changed to every 8 hours because the patient has complaining of constipation. The patient is on morphine extended release 90 mg every 12, nicotine patch 21 mg daily, Protonix 40 mg eight daily, Santyl to affected area, Tylenol 650 mg p.o. suppository every 6 p.r.n., vancomycin 1.25 g IV every 12, vitamin B12 1000 mcg IM daily, Xopenex nebulizer 0.63 mg every 6 hours, Zofran 4 mg IV every 4 p.r.n. The patient has been ordered a stat CT angio, D-dimer, oxygen and echocardiogram ordered. Repeat EKG in the morning has been ordered. Echo with Doppler ordered for evaluation of congestive heart failure.. The patient's sodium level from the day of hospitalization is reviewed. The patient's sodium is averaging around mid to low 130, today is 129. The patient will be given one dose of Lasix 40 mg just one dose today because of the patient being in congestive heart failure. The patient at present has been transferred to telemetry. The patient's further management will be dependent upon the patient's clinical condition, hemodynamic status as per the patient response to therapeutic intervention, as per the patient's diagnostic test results, and as per recommendation by all the physician involved in the care of the patient. In addition, the patient will be given a dose of therapeutic Lovenox. The patient will be given a dose of therapeutic dose of Lovenox for suspicion of possible thromboembolism phenomena. The patient's overall prognosis is guarded to poor. Dictated and electronically signed, not read. Carlos Hernandez MD
[2018-08-29] MEDS: Acetylcysteine 20% Inhal Soln (4ml) IH SCH ×4 (01:08→19:44)
[2018-08-29] MEDS: Levalbuterol 0.63 MG/3 ML Inhal Soln UD IH SCH ×4 (01:09→19:44)
[2018-08-29] MEDS: Enoxaparin 80 mg Syringe SC SCH ×3 (02:16→21:25)
[2018-08-29 02:29] LABS: TROPONIN I 0.01 ng/mL
[2018-08-29] MEDS: Pantoprazole 40 mg EC Tab PO SCH (06:14)
[2018-08-29] MEDS: MEROPENEM 500 MG in NS 500 MG/50 ML BAG IVPB SCH ×2 (06:14→13:49)
[2018-08-29] MEDS: Sodium Chloride 0.9% 1,000 ML IV SCH (06:15)
[2018-08-29] MEDS: POLYETHYLENE GLYCOL 3350 17 GM/Dose PACKET PO SCH ×2 (06:24→13:51)
[2018-08-29 07:37] LABS: ALB/GLOB RATIO 0.7 (1.1-1.8); ALBUMIN 2.3 g/dL (3.0-4.8); ALT/SGPT 22 U/L (7-56); AST/SGOT 45 U/L (17-59); BILIRUBIN,DIRECT 0.3 mg/dL (0.0-0.4); BLOOD UREA NITROGEN 13 mg/dL (7-21); CALCIUM 7.4 mg/dL (8.4-10.5); GFR NON-AFRICAN AMERICAN > 60
[2018-08-29 07:38] LABS: B-TYPE NATRIURETIC PEPTIDE 5070 pg/mL (0-450)
[2018-08-29 07:46] LABS: BASO # 0.02 K/mm3 (0.0-2.0); BASO % 0.2 % (0.0-3.0); EOS # 0.7 (0.0-0.7); EOS % 8.2 % (1.5-5.0); HEMOGLOBIN 10.9 g/dL (14.0-18.0); LYMPH # 0.8 (1.2-3.4); LYMPH % 8.9 % (22.0-35.0); MEAN CELL VOLUME 89.1 fl (80.0-105.0); MEAN CORPUSCULAR HGB CONC 30.4 g/dl (31.0-37.0); MEAN PLATELET VOLUME 8.9 fl (7.0-11.0); MONO # 0.6 (0.1-0.6); MONO % 6.7 % (1.0-6.0); RBC 4.03 10^6/uL (3.5-6.1); RED CELL DISTRIBUTION WIDTH 14.1 % (11.5-14.5); WHITE BLOOD COUNT 8.6 10^3/uL (4.5-11.0)
[2018-08-29 07:48] LABS: TROPONIN I 0.02 ng/mL
--- NOTE | 2018-08-29 08:43 | RAD ---
Date of service: 08/28/2018 HISTORY: SOB COMPARISON: 08/23/2018 FINDINGS: LUNGS: There is a dense alveolar infiltrate in the right middle lobe. This is a new finding PLEURA: No significant pleural effusion identified, no pneumothorax apparent. CARDIOVASCULAR: No aortic atherosclerotic calcification present. Normal cardiac size. No pulmonary vascular congestion. OSSEOUS STRUCTURES: No significant abnormalities. VISUALIZED UPPER ABDOMEN: Normal. OTHER FINDINGS: None. IMPRESSION: Right middle lobe pneumonia
[2018-08-29] MEDS: Morphine 30 mg SR Tab PO SCH ×2 (09:34→21:27)
[2018-08-29] MEDS: Mupirocin 2% Ointment 15 GM TUBE TOP SCH ×3 (09:35→17:13)
[2018-08-29] MEDS: Collagenase 250 Units/gm Ointment(30 gm) TOP SCH ×3 (09:35→19:00)
[2018-08-29] MEDS: Ammonium Lactate 12% Cream (140 g) TOP SCH (09:36)
--- NOTE | 2018-08-29 09:46 | CT ---
Date of service: 08/29/2018 PROCEDURE: CT Chest with contrast (Pulmonary Angiogram) HISTORY: ??PE COMPARISON: None available. TECHNIQUE: Axial computed tomography images were obtained of the chest in the pulmonary arterial phase of enhancement. Coronal and sagittal reformatted images were created and reviewed. Intravenous contrast dose: 100 cc of Omni 350 Radiation dose: Total exam DLP = 432.49 mGy-cm. This CT exam was performed using one or more of the following dose reduction techniques: Automated exposure control, adjustment of the mA and/or kV according to patient size, and/or use of iterative reconstruction technique. FINDINGS: PULMONARY ARTERIES: Unremarkable. No pulmonary embolism. AORTA: No acute findings. No thoracic aortic aneurysm. Aortic calcification LUNGS: Consolidation of both lung bases adjacent to the pleural effusions. PLEURAL SPACES: Large bilateral pleural effusions HEART: Unremarkable. No cardiomegaly. No significant pericardial effusion. LYMPH NODES: No lymphadenopathy. BONES, CHEST WALL: Unremarkable. No fracture or destructive lesion OTHER FINDINGS: Splenic calcifications The report concurs with the preliminary [facility] report IMPRESSION: Large bilateral pleural effusions with adjacent consolidation of both lung bases. No evidence of pulmonary embolus or aortic dissection
--- NOTE | 2018-08-29 12:42 | CP.PCM.PN ---
<AlexaKishor chaudhry - Last Filed: 08/29/18 12:39> Subjective - Date & Time of Evaluation Date of Evaluation: 08/29/18 Time of Evaluation: 12:39 - Subjective Subjective: Podiatry consult note for Dr. Lloyd 68 y/o seen and evaluated for infected skin ulcers and b/l foot pain. Patient seen to be resting in bed without any complaints. Patient moved to telemetry overnight for further monitoring. Objective - Vital Signs/Intake and Output Vital Signs (last 24 hours): Temp Pulse Resp BP Pulse Ox 98.7 F 121 H 19 96/53 L 93 L 08/29/18 06:00 08/29/18 10:00 08/29/18 06:00 08/29/18 06:00 08/29/18 06:00 Intake and Output: 08/29/18 08/29/18 06:59 18:59 Intake Total 1020 Output Total 1300 Balance -280 - Medications Medications: Current Medications Acetaminophen (Tylenol 325mg Tab) 650 mg PO Q6 PRN PRN Reason: TEMP>=99.5F Last Admin: 08/28/18 23:34 Dose: 650 mg Acetaminophen (Tylenol 650 Mg Supp) 650 mg RC Q6H PRN PRN Reason: TEMP>=99.5F Acetylcysteine (Acetylcysteine 20%) 4 ml IH [id number] [facility] Last Admin: 08/29/18 08:17 Dose: 4 ml Bisacodyl (Dulcolax) 10 mg RC HS PRN PRN Reason: Constipation Collagenase (Santyl) 0 gm TOP DAILY [facility] Last Admin: 08/28/18 14:30 Dose: 1 appl Cyanocobalamin (Vitamin B12 1000 Mcg/Ml Inj) 1,000 mcg IM DAILY [facility] Stop: 09/04/18 10:01 Last Admin: 08/29/18 09:34 Dose: 1,000 mcg Enoxaparin Sodium (Lovenox) 80 mg SC Q12H [facility]; Protocol Last Admin: 08/29/18 09:35 Dose: 80 mg Ergocalciferol (Drisdol 50,000 Intl Units Cap) 1 cap PO Q7D [facility] Last Admin: 08/26/18 15:49 Dose: 1 cap Folic Acid (Folic Acid) 1 mg PO DAILY [facility] Last Admin: 08/29/18 09:34 Dose: 1 mg Vancomycin HCl 1.25 gm/ Sodium (Chloride) 250 mls @ 167 mls/hr IVPB Q12 [facility]; Protocol Last Admin: 08/29/18 09:58 Dose: 167 mls/hr Iron Sucrose 200 mg/ Sodium (Chloride) 110 mls @ 110 mls/hr IVPB DAILY [facility] Stop: 08/30/18 10:59 Last Admin: 08/29/18 09:58 Dose: 110 mls/hr Meropenem/Sodium Chloride (Merrem Iv 500 Mg/Ns 50 Ml) 500 mg in 50 mls @ 100 mls/hr IVPB Q8 [facility]; Protocol Stop: 08/29/18 14:29 Last Admin: 08/29/18 06:14 Dose: 100 mls/hr Sodium Chloride (Sodium Chloride 0.9%) 1,000 mls @ 50 mls/hr IV .Q20H [facility] Last Admin: 08/29/18 06:15 Dose: 50 mls/hr Lactic Acid (Lac-Hydrin 12% Cream (140 G)) 0 ea TOP DAILY [facility] Last Admin: 08/29/18 09:36 Dose: 1 applic Levalbuterol HCl (Xopenex) 0.63 mg IH [id number] [facility] Last Admin: 08/29/18 08:17 Dose: 0.63 mg Lorazepam (Ativan) 1 mg IVP Q6H [facility]; Protocol PRN Reason: Anxiety Lorazepam (Ativan) 2 mg IVP ONCE PRN; Protocol PRN Reason: Anxiety Metoprolol Tartrate (Lopressor) 25 mg PO Q8H [facility] Last Admin: 08/29/18 06:04 Dose: Not Given Morphine Sulfate (Morphine Extended Release Tab) 90 mg PO Q12 [facility] Last Admin: 08/29/18 09:34 Dose: 90 mg Mupirocin (Bactroban Ointment) 0 gm TOP BID [facility] Last Admin: 08/29/18 09:44 Dose: Not Given Nicotine (Nicoderm Cq) 1 patch TD DAILY [facility] Last Admin: 08/29/18 09:35 Dose: 1 patch Ondansetron HCl (Zofran Inj) 4 mg IVP Q4H PRN PRN Reason: Nausea/Vomiting Pantoprazole Sodium (Protonix Ec Tab) 40 mg PO 0600 [facility] Last Admin: 08/29/18 06:14 Dose: 40 mg Polyethylene Glycol (Miralax) 17 gm PO Q8H [facility] Last Admin: 08/29/18 06:24 Dose: Not Given - Labs Labs: 08/29/18 06:30 08/29/18 06:30 PT 15.1 SECONDS (9.4-12.5) H 08/23/18 22:20 INR 1.36 08/23/18 22:20 APTT 27.9 Seconds (26.9-38.3) 08/23/18 22:20 - Constitutional Appears: Well, Non-toxic, No Acute Distress - Head Exam Head Exam: ATRAUMATIC, NORMOCEPHALIC - Extremities Exam Additional comments: VASC: DP and PT non-palpable, TG warm to warm bilaterally, significant lymphedema noted bilaterally, non-pitting NEURO: grossly intact DERM: LEFT- 0.5 cm X 0.5 cm wound noted to submetatarsal 1 head, significantly improved, fibrotic base, no drainage, no tunneling, tracking or probe to bone, positive malodor, multiple superficial wounds noted to the lateral aspect of the left ankle with granular skin base, no drainage, no probe to bone, no tunneling or tracking, no malodor, chronic skin trophic changes secondary to long standing peripheral vascular disease RIGHT- superficial wound noted to the lateral aspect of the leg at the site of previous chronic skin trophic changes secondary to long standing peripheral vascular disease, wound base 100% granular, minimal serous drainage, mild malodor, no tunneling, tracking or probe to bone ORTHO: pain with range of motion, and on palpation to the feet and legs bialterally - Neurological Exam Neurological Exam: Alert, Awake, Oriented x3 - Psychiatric Exam Psychiatric exam: Normal Affect, Normal Mood Assessment and Plan - Assessment and Plan (Free Text) Assessment: 68 y/o male patient seen and evaluated for bilateral lower extremity wounds Plan: Patient seen and evaluated with Dr. Lloyd Discussed in detail with Dr. Lloyd Afebrile, absent leukocytosis Bilateral foot x-ray ordered-no osteo on xray Vascular consult placed, recommendations appreciated Patient refused CT and MRI , states it is too painful Obtained Left foot wound cultures: MRSA, Quentin szymanski Continue IV Abx Infection Disease consult, recommendations appreciated Wound cleansed with saline and dressed with bactroban, maxorb, adaptic, ABD DSD Ammonium lactate applied to both legs Podiatry will continue to follow patient while in house <Kvng Lloyd - Last Filed: 08/30/18 09:26> Objective - Vital Signs/Intake and Output Vital Signs (last 24 hours): Temp Pulse Resp BP Pulse Ox 98.6 F 129 H 20 120/56 L 100 08/30/18 06:12 08/30/18 09:17 08/30/18 06:12 08/30/18 09:17 08/30/18 06:12 Intake and Output: 08/30/18 08/30/18 06:59 18:59 Intake Total 660 Output Total 500 Balance 160 - Medications Medications: Current Medications Acetaminophen (Tylenol 325mg Tab) 650 mg PO Q6 PRN PRN Reason: TEMP>=99.5F Last Admin: 08/30/18 01:53 Dose: 650 mg Acetaminophen (Tylenol 650 Mg Supp) 650 mg RC Q6H PRN PRN Reason: TEMP>=99.5F Acetylcysteine (Acetylcysteine 20%) 4 ml IH [id number] [facility] Last Admin: 08/30/18 07:58 Dose: 4 ml Bisacodyl (Dulcolax) 10 mg RC HS PRN PRN Reason: Constipation Collagenase (Santyl) 0 gm TOP DAILY [facility] Last Admin: 08/29/18 19:00 Dose: 1 appl Cyanocobalamin (Vitamin B12 1000 Mcg/Ml Inj) 1,000 mcg IM DAILY [facility] Stop: 09/04/18 10:01 Last Admin: 08/29/18 09:34 Dose: 1,000 mcg Enoxaparin Sodium (Lovenox) 80 mg SC Q12H [facility]; Protocol Last Admin: 08/29/18 21:25 Dose: 80 mg Ergocalciferol (Drisdol 50,000 Intl Units Cap) 1 cap PO Q7D [facility] Last Admin: 08/26/18 15:49 Dose: 1 cap Folic Acid (Folic Acid) 1 mg PO DAILY [facility] Last Admin: 08/29/18 09:34 Dose: 1 mg Vancomycin HCl 1.25 gm/ Sodium (Chloride) 250 mls @ 167 mls/hr IVPB Q12 [facility]; Protocol Last Admin: 08/29/18 21:31 Dose: 167 mls/hr Iron Sucrose 200 mg/ Sodium (Chloride) 110 mls @ 110 mls/hr IVPB DAILY [facility] Stop: 08/30/18 10:59 Last Admin: 08/29/18 09:58 Dose: 110 mls/hr Sodium Chloride (Sodium Chloride 0.9%) 1,000 mls @ 50 mls/hr IV .Q20H [facility] Last Admin: 08/30/18 01:51 Dose: 50 mls/hr Meropenem (Merrem Iv 1 Gm Premix) 1 gm in 50 mls @ 100 mls/hr IVPB Q8 [facility]; Protocol Stop: 09/04/18 09:16 Lactic Acid (Lac-Hydrin 12% Cream (140 G)) 0 ea TOP DAILY [facility] Last Admin: 08/29/18 09:36 Dose: 1 applic Levalbuterol HCl (Xopenex) 0.63 mg IH [id number] [facility] Last Admin: 08/30/18 07:58 Dose: 0.63 mg Lorazepam (Ativan) 1 mg IVP Q6H PRN; Protocol PRN Reason: Anxiety Lorazepam (Ativan) 2 mg IVP ONCE PRN; Protocol PRN Reason: Anxiety Metoprolol Tartrate (Lopressor) 50 mg PO Q8H [facility] Last Admin: 08/30/18 09:17 Dose: 50 mg Morphine Sulfate (Morphine Extended Release Tab) 90 mg PO Q12 [facility] Last Admin: 08/29/18 21:27 Dose: 90 mg Mupirocin (Bactroban Ointment) 0 gm TOP BID [facility] Last Admin: 08/29/18 17:13 Dose: Not Given Nicotine (Nicoderm Cq) 1 patch TD DAILY [facility] Last Admin: 08/29/18 09:35 Dose: 1 patch Ondansetron HCl (Zofran Inj) 4 mg IVP Q4H PRN PRN Reason: Nausea/Vomiting Pantoprazole Sodium (Protonix Ec Tab) 40 mg PO 0600 [facility] Last Admin: 08/30/18 05:33 Dose: 40 mg Polyethylene Glycol (Miralax) 17 gm PO DAILY [facility] - Labs Labs: 08/30/18 07:05 08/30/18 07:05 PT 15.1 SECONDS (9.4-12.5) H 08/23/18 22:20 INR 1.36 08/23/18 22:20 APTT 27.9 Seconds (26.9-38.3) 08/23/18 22:20 Attending/Attestation - Attestation I have personally seen and examined this patient.: Yes I have fully participated in the care of the patient.: Yes I have reviewed all pertinent clinical information, including history, physical exam and plan: Yes
--- NOTE | 2018-08-29 13:23 | PN ---
DATE: 08/29/2018 The patient is under the care of Dr. Carlos Hernandez and I am covering for him today. SUBJECTIVE: The patient was admitted with multiple wounds in the leg, gluteal area, and under the leg. The patient has had sacral decubiti 2 and chronic lung disease in the past, hypertension. The patient has altered mental state and the patient is ALLERGIC TO PENICILLIN. PHYSICAL EXAMINATION GENERAL: On examination, the patient seemed to be sleeping. VITAL SIGNS: This morning pulse is 100, blood pressure 96/53, respirations are 19, O2 saturation is 93% while the patient is on supplementary oxygen, Venturi mask. LUNGS: The patient has chronic lung disease. His breath sounds are diminished bilaterally. HEART: Normal sinus rhythm, sinus tachycardia. ABDOMEN: Soft. No tenderness. CENTRAL NERVOUS SYSTEM: The patient does not seem to be totally oriented, and he has no localizing signs. LABORATORY DATA: Blood work today; hemoglobin 10.9, white count is normal. The patient's chemistry; the patient's sodium is 130 which is low and the potassium is 4.3. The patient has low magnesium, which is being corrected and his magnesium level is 1.8. MEDICATIONS: The patient's medications consist of respiratory treatment. The patient is on Xopenex and Mucomyst. The patient is getting Ativan 1 mg IV every 6 hours for agitation. The patient is on folic acid, iron supplement. The patient is on metoprolol 25 mg every 8 hours for coronary artery disease and tachycardia. The patient is on Lovenox 80 mg subcutaneous every 12 hours for his anticoagulation. The patient gets meropenem 500 mg for sepsis. ASSESSMENT AND PLAN: His overall condition is unstable. The patient is in the telemetry unit. We will followup. Donovan Aleman MD
--- NOTE | 2018-08-29 15:54 | CP.PCM.PN ---
Subjective - Date & Time of Evaluation Date of Evaluation: 08/29/18 Time of Evaluation: 09:15 - Subjective Subjective: Comfortable, no increased pain in the legs, no fevers. Objective - Vital Signs/Intake and Output Vital Signs (last 24 hours): Temp Pulse Resp BP Pulse Ox 98.7 F 106 H 19 96/53 L 93 L 08/29/18 06:00 08/29/18 06:00 08/29/18 06:00 08/29/18 06:00 08/29/18 06:00 Intake and Output: 08/29/18 08/29/18 06:59 18:59 Intake Total 1020 Output Total 1300 Balance -280 - Medications Medications: Current Medications Acetaminophen (Tylenol 325mg Tab) 650 mg PO Q6 PRN PRN Reason: TEMP>=99.5F Last Admin: 08/28/18 23:34 Dose: 650 mg Acetaminophen (Tylenol 650 Mg Supp) 650 mg RC Q6H PRN PRN Reason: TEMP>=99.5F Acetylcysteine (Acetylcysteine 20%) 4 ml IH [id number] [facility] Last Admin: 08/29/18 08:17 Dose: 4 ml Bisacodyl (Dulcolax) 10 mg RC HS PRN PRN Reason: Constipation Collagenase (Santyl) 0 gm TOP DAILY [facility] Last Admin: 08/28/18 14:30 Dose: 1 appl Cyanocobalamin (Vitamin B12 1000 Mcg/Ml Inj) 1,000 mcg IM DAILY [facility] Stop: 09/04/18 10:01 Last Admin: 08/28/18 10:36 Dose: 1,000 mcg Enoxaparin Sodium (Lovenox) 80 mg SC Q12H [facility]; Protocol Last Admin: 08/29/18 02:16 Dose: Not Given Ergocalciferol (Drisdol 50,000 Intl Units Cap) 1 cap PO Q7D [facility] Last Admin: 08/26/18 15:49 Dose: 1 cap Folic Acid (Folic Acid) 1 mg PO DAILY [facility] Last Admin: 08/28/18 10:35 Dose: 1 mg Vancomycin HCl 1.25 gm/ Sodium (Chloride) 250 mls @ 167 mls/hr IVPB Q12 [facility]; Protocol Last Admin: 08/28/18 22:02 Dose: 167 mls/hr Iron Sucrose 200 mg/ Sodium (Chloride) 110 mls @ 110 mls/hr IVPB DAILY [facility] Stop: 08/30/18 10:59 Last Admin: 08/28/18 10:36 Dose: 110 mls/hr Meropenem/Sodium Chloride (Merrem Iv 500 Mg/Ns 50 Ml) 500 mg in 50 mls @ 100 mls/hr IVPB Q8 [facility]; Protocol Stop: 08/29/18 14:29 Last Admin: 08/29/18 06:14 Dose: 100 mls/hr Sodium Chloride (Sodium Chloride 0.9%) 1,000 mls @ 50 mls/hr IV .Q20H [facility] Last Admin: 08/29/18 06:15 Dose: 50 mls/hr Lactic Acid (Lac-Hydrin 12% Cream (140 G)) 0 ea TOP DAILY [facility] Last Admin: 08/28/18 14:30 Dose: 1 applic Levalbuterol HCl (Xopenex) 0.63 mg IH [id number] [facility] Last Admin: 08/29/18 08:17 Dose: 0.63 mg Lorazepam (Ativan) 1 mg IVP Q6H PRN; Protocol PRN Reason: Anxiety Lorazepam (Ativan) 2 mg IVP ONCE PRN; Protocol PRN Reason: Anxiety Metoprolol Tartrate (Lopressor) 25 mg PO Q8H [facility] Last Admin: 08/29/18 06:04 Dose: Not Given Morphine Sulfate (Morphine Extended Release Tab) 90 mg PO Q12 [facility] Last Admin: 08/28/18 22:02 Dose: 90 mg Mupirocin (Bactroban Ointment) 0 gm TOP BID [facility] Last Admin: 08/28/18 17:59 Dose: Not Given Nicotine (Nicoderm Cq) 1 patch TD DAILY [facility] Last Admin: 08/28/18 10:34 Dose: 1 patch Ondansetron HCl (Zofran Inj) 4 mg IVP Q4H PRN PRN Reason: Nausea/Vomiting Pantoprazole Sodium (Protonix Ec Tab) 40 mg PO 0600 [facility] Last Admin: 08/29/18 06:14 Dose: 40 mg Polyethylene Glycol (Miralax) 17 gm PO Q8H [facility] Last Admin: 08/29/18 06:24 Dose: Not Given - Labs Labs: 08/29/18 06:30 08/29/18 06:30 PT 15.1 SECONDS (9.4-12.5) H 08/23/18 22:20 INR 1.36 08/23/18 22:20 APTT 27.9 Seconds (26.9-38.3) 08/23/18 22:20 - Constitutional Appears: Chronically Ill - Head Exam Head Exam: NORMAL INSPECTION - Respiratory Exam Respiratory Exam: Decreased Breath Sounds - Cardiovascular Exam Cardiovascular Exam: +S1, +S2 - GI/Abdominal Exam GI & Abdominal Exam: Soft. absent: Tenderness - Extremities Exam Additional comments: both legs with dressings in place Assessment and Plan - Assessment and Plan (Free Text) Plan: Assessment Infected left lower extremity wounds, R/O osteomyelitis, grew MRSA chronic back pain vertebral disc disease venous stasis dermatitis Plan GNB in the wound may just be colonization continue IV Vancomycin for the MRSA awaiting MRI of the foot follow up further plans of Podiatry will continue to monitor clinically
--- NOTE | 2018-08-29 18:55 | CON ---
DATE: 08/29/2018 CARDIOLOGY CONSULT REASON FOR CONSULTATION: Sinus tachycardia and right bundle-branch block. HISTORY OF PRESENT ILLNESS: The patient is 68 years old male, who has not seen a physician for quite some time, was initially admitted because of infected sacral decubitus as well as bilateral leg cellulitis. The patient was very vague and has history and the information that he gave may not be true as they did not make the logic. The patient stated that he has been living by himself and was able to stand and take care of himself until recently. Denies any prior cardiac history and denies any history of stroke in the past. At this time, the patient was transferred from the fifth floor to telemetry because of tachycardia. The patient denies any palpitation or dizziness. He denies any shortness of breath. SOCIAL HISTORY: The patient lives by himself. He is a former smoker. MEDICATIONS: Ativan 1 mg intravenously every 6 hours p.r.n. for anxiety, Dulcolax 10 mg p.r.n. rectally, iron sucrose infusion, Lopressor 25 mg every 8 hours, meropenem 1 g intravenously every 8 hours, nicotine patch, morphine sulfate 90 mg p.o. every 12 hours, Protonix 40 mg p.o. once a day, vancomycin 1.25 g intravenously every 12 hours, vitamin B12 1 mg IM daily, Xopenex inhaler every 6 hours, Zofran 4 mg intravenously every 4 hours p.r.n. REVIEW OF SYSTEMS: The patient states that he may have had fever. He denies any chest pain; denies any recent syncope or fall. PHYSICAL EXAMINATION GENERAL: The patient is an elderly male, who does not appear to be in acute distress; however, he has very foul smell coming from his sacral decubitus. His feet were just recently dressed by the synthetic resin operator. The patient does not appear to be in any respiratory distress. VITAL SIGNS: Blood pressure 96/53, heart rate 121, temperature 98.7, and respirations 19. HEENT: Normocephalic. CHEST: Absent breath sounds over the bases. HEART: S1 and S2, regular. ABDOMEN: Soft. EXTREMITIES: Dressing to both feet and there is 2+ pedal edema. LABORATORY DATA: Hemoglobin and hematocrit 10.9 and 35.9. The patient did receive 1 unit of packed RBC transfusion. SMA-7: Sodium 130, potassium 4.3, chloride 95, CO2 of 34, glucose 93, BUN 13, and creatinine 0.8. ProBNP is 5070. Three sets of troponins are negative. EKG revealed sinus tachycardia 113, right bundle-branch block. Venous Doppler of lower extremity during this admission was negative for DVT. RPR Doppler, mildly abnormal ABIs at rest, but possible bilateral distal superficial femoral artery, popliteal and bifurcation disease. Chest CT scan with PE protocol, large bilateral pleural effusions with adjacent consolidation of both lung bases. No evidence of pulmonary embolism or aortic dissection. Chest x-ray done yesterday revealed mild CHF, right lower lobe consolidation. Foot x-ray, no evidence of osteomyelitis. ASSESSMENT 1. Stage III sacral decubitus. Positive for corynebacterium species and Providencia rettgeri. 2. Bilateral foot cellulitis, positive in the right leg for Proteus penneri and on the left positive for methicillin-resistant Staphylococcus aureus and Morganella morganii. 3. Abnormal EKG with evidence of right bundle-branch block. 4. Anemia, requiring packed right blood cell transfusion. 5. Right lower lobe pneumonia. RECOMMENDATIONS: Continue current iron sucrose infusion. Continue Lopressor 25 mg every 8 hours. Continue therapeutic subcutaneous Lovenox at 80 mg twice a day. Continue IV meropenem at 1 g every 8 hours and IV vancomycin 1.25 g every 12 hours. Obtain an echocardiographic study. Social service evaluation is needed as the patient cannot manage at home by himself. Jayy Zapata MD
--- NOTE | 2018-08-29 20:45 | CARD ---
APPROVED REPORT Date of service: 08/29/2018 EKG Measurement Heart [id number] <Conclusion> Sinus tachycardia Right bundle branch block Abnormal ECG
[2018-08-30] MEDS: Levalbuterol 0.63 MG/3 ML Inhal Soln UD IH SCH ×4 (01:04→19:44)
[2018-08-30] MEDS: Acetylcysteine 20% Inhal Soln (4ml) IH SCH ×4 (01:04→19:44)
[2018-08-30] MEDS: Sodium Chloride 0.9% 1,000 ML IV SCH (01:51)
[2018-08-30] MEDS: POLYETHYLENE GLYCOL 3350 17 GM/Dose PACKET PO SCH ×3 (02:17→05:37)
[2018-08-30] MEDS: Pantoprazole 40 mg EC Tab PO SCH (05:33)
[2018-08-30 07:20] LABS: BASO # 0.02 K/mm3 (0.0-2.0); BASO % 0.1 % (0.0-3.0); EOS # 0.8 (0.0-0.7); EOS % 5.7 % (1.5-5.0); HEMOGLOBIN 10.1 g/dL (14.0-18.0); LYMPH # 0.8 (1.2-3.4); LYMPH % 5.9 % (22.0-35.0); MEAN CELL VOLUME 90.9 fl (80.0-105.0); MEAN CORPUSCULAR HEMOGLOBIN 27.1 pg (25.0-35.0); MEAN CORPUSCULAR HGB CONC 29.8 g/dl (31.0-37.0); MEAN PLATELET VOLUME 9.4 fl (7.0-11.0); MONO # 0.7 (0.1-0.6); MONO % 5.1 % (1.0-6.0); RBC 3.73 10^6/uL (3.5-6.1); RED CELL DISTRIBUTION WIDTH 14.3 % (11.5-14.5)
[2018-08-30 07:32] LABS: ALB/GLOB RATIO 0.6 (1.1-1.8); ALBUMIN 2.2 g/dL (3.0-4.8); ALT/SGPT 12 U/L (7-56); AST/SGOT 30 U/L (17-59); BILIRUBIN,DIRECT 0.4 mg/dL (0.0-0.4); BLOOD UREA NITROGEN 16 mg/dL (7-21); CALCIUM 7.4 mg/dL (8.4-10.5); GFR NON-AFRICAN AMERICAN > 60
[2018-08-30 07:34] LABS: B-TYPE NATRIURETIC PEPTIDE 5320 pg/mL (0-450)
--- NOTE | 2018-08-30 08:02 | CP.PCM.PN ---
Subjective - Date & Time of Evaluation Date of Evaluation: 08/30/18 Time of Evaluation: 08:00 - Subjective Subjective: PGY-[address] Hernandez Pt is resting comfortable. sputum easy to produce. febrile overnight, now no f/c. pain controlled. no acute complainted per 12 pt ros RN page for SaO2 in low 80s. Examine pt by bedside. Pt refuses venti mask despite explanation. saO2 improves after adjust NC and ask pt to breath via nose. AAOx3. Able to converse in complete sentences without SOB or pause Objective - Vital Signs/Intake and Output Vital Signs (last 24 hours): Temp Pulse Resp BP Pulse Ox 98.6 F 103 H 20 96/44 L 100 08/30/18 06:12 08/30/18 06:14 08/30/18 06:12 08/30/18 06:12 08/30/18 06:12 Intake and Output: 08/30/18 08/30/18 06:59 18:59 Intake Total 660 Output Total 500 Balance 160 - Medications Medications: Current Medications Acetaminophen (Tylenol 325mg Tab) 650 mg PO Q6 PRN PRN Reason: TEMP>=99.5F Last Admin: 08/30/18 01:53 Dose: 650 mg Acetaminophen (Tylenol 650 Mg Supp) 650 mg RC Q6H PRN PRN Reason: TEMP>=99.5F Acetylcysteine (Acetylcysteine 20%) 4 ml IH [id number] [facility] Last Admin: 08/30/18 01:04 Dose: 4 ml Bisacodyl (Dulcolax) 10 mg RC HS PRN PRN Reason: Constipation Collagenase (Santyl) 0 gm TOP DAILY [facility] Last Admin: 08/29/18 19:00 Dose: 1 appl Cyanocobalamin (Vitamin B12 1000 Mcg/Ml Inj) 1,000 mcg IM DAILY [facility] Stop: 09/04/18 10:01 Last Admin: 08/29/18 09:34 Dose: 1,000 mcg Enoxaparin Sodium (Lovenox) 80 mg SC Q12H [facility]; Protocol Last Admin: 08/29/18 21:25 Dose: 80 mg Ergocalciferol (Drisdol 50,000 Intl Units Cap) 1 cap PO Q7D [facility] Last Admin: 08/26/18 15:49 Dose: 1 cap Folic Acid (Folic Acid) 1 mg PO DAILY [facility] Last Admin: 08/29/18 09:34 Dose: 1 mg Vancomycin HCl 1.25 gm/ Sodium (Chloride) 250 mls @ 167 mls/hr IVPB Q12 [facility]; Protocol Last Admin: 08/29/18 21:31 Dose: 167 mls/hr Iron Sucrose 200 mg/ Sodium (Chloride) 110 mls @ 110 mls/hr IVPB DAILY [facility] Stop: 08/30/18 10:59 Last Admin: 08/29/18 09:58 Dose: 110 mls/hr Sodium Chloride (Sodium Chloride 0.9%) 1,000 mls @ 50 mls/hr IV .Q20H [facility] Last Admin: 08/30/18 01:51 Dose: 50 mls/hr Lactic Acid (Lac-Hydrin 12% Cream (140 G)) 0 ea TOP DAILY [facility] Last Admin: 08/29/18 09:36 Dose: 1 applic Levalbuterol HCl (Xopenex) 0.63 mg IH [id number] [facility] Last Admin: 08/30/18 01:04 Dose: 0.63 mg Lorazepam (Ativan) 1 mg IVP Q6H PRN; Protocol PRN Reason: Anxiety Lorazepam (Ativan) 2 mg IVP ONCE PRN; Protocol PRN Reason: Anxiety Metoprolol Tartrate (Lopressor) 25 mg PO Q8H [facility] Last Admin: 08/30/18 05:32 Dose: Not Given Morphine Sulfate (Morphine Extended Release Tab) 90 mg PO Q12 [facility] Last Admin: 08/29/18 21:27 Dose: 90 mg Mupirocin (Bactroban Ointment) 0 gm TOP BID [facility] Last Admin: 08/29/18 17:13 Dose: Not Given Nicotine (Nicoderm Cq) 1 patch TD DAILY [facility] Last Admin: 08/29/18 09:35 Dose: 1 patch Ondansetron HCl (Zofran Inj) 4 mg IVP Q4H PRN PRN Reason: Nausea/Vomiting Pantoprazole Sodium (Protonix Ec Tab) 40 mg PO 0600 [facility] Last Admin: 08/30/18 05:33 Dose: 40 mg Polyethylene Glycol (Miralax) 17 gm PO Q8H [facility] Last Admin: 08/30/18 05:37 Dose: 17 gm - Labs Labs: 08/30/18 07:05 08/30/18 07:05 PT 15.1 SECONDS (9.4-12.5) H 08/23/18 22:20 INR 1.36 08/23/18 22:20 APTT 27.9 Seconds (26.9-38.3) 08/23/18 22:20 - Constitutional Appears: No Acute Distress - Head Exam Head Exam: ATRAUMATIC, NORMAL INSPECTION, NORMOCEPHALIC - Eye Exam Eye Exam: EOMI, Normal appearance, PERRL. absent: Scleral icterus Pupil Exam: NORMAL ACCOMODATION - ENT Exam ENT Exam: Mucous Membranes Moist - Neck Exam Additional comments: supple - Respiratory Exam Respiratory Exam: Decreased Breath Sounds (b/l lung bases), Clear to Ausculation Bilateral. absent: Rales, Rhonchi, Wheezes - Cardiovascular Exam Cardiovascular Exam: REGULAR RHYTHM, +S1, +S2, Murmur - GI/Abdominal Exam GI & Abdominal Exam: Soft, Normal Bowel Sounds. absent: Tenderness - Extremities Exam Additional comments: dressing d/c/i - Neurological Exam Neurological Exam: Alert, Awake, Oriented x3 - Psychiatric Exam Psychiatric exam: Normal Affect, Normal Mood - Skin Skin Exam: Dry, Warm Assessment and Plan - Assessment and Plan (Free Text) Plan: Mr Dodd, 68M, with PMhx penicillin allergy, chronic back pain and vertebral disc disease admitted for b/l foot cellulitis r/o osteomyelitis and L thigh decubitus. Recent fever of 100.4 last night, on NS@50 for salient loss. Hypoxia - cannot tolerate ventimask. likely due to PNA/pleural effusion. ? CHF [ ] ABG on room air Pt become septic overnight. T 100.4/WBC 14. Likely due to b/l PNA with pleural effusion - He has cough and plegmns. he is on xopenex/acetylcystein neb q6 - CT chest showed large b/l pleural effusion with consolidation b/l lung bases. - Added merem per ID (day 1) - Consult IR for thoracentesis For b/l foot cellulitis which grew MRSA, he is on vancomycin (day 7). Per ID, GNB is likely contamination. SRINIVAS was only mildly abnormal at rest, possible PAD. For sacral decubitus stage 3, L thigh, he is on santyl and local wound care. No osteomyelitis - pt refuses MRI to r/o osteomyelitis. - ESR 105 He is anemic with Hb 8.4 on 08/25. He got 1u pRBC, started Fe IV (today day 11/21) For sinus tachycardia and RBBB (questionable new onset vs chronic) with prolong Qtc 496, he is on metoprolol 25 PO q8. BNP elevated at 500 Questionable CHF [ ] echo pending - switch lovenox to 40 sc qd - trop neg x 3 Hyponatermia, mild, asymptomatci, on NS@50. Stop IVF for now due to temporary deSat. For anxiety, he is on ativan PRN For tobacco addition, benefits counselor for cessation and he is on nicoderm dispo plan: PT recommends MARICRUZ. [ ] Antibiotics. [ ] cytology from pleural effusion s/r/d/w Dr Hernandez
[2018-08-30] MEDS: Meropenem IV 1 gm in NS 1 GM/50 ML BAG IVPB SCH ×3 (09:31→21:34)
[2018-08-30] MEDS: Collagenase 250 Units/gm Ointment(30 gm) TOP SCH (10:00)
[2018-08-30] MEDS: Ammonium Lactate 12% Cream (140 g) TOP SCH (11:21)
[2018-08-30] MEDS: Mupirocin 2% Ointment 15 GM TUBE TOP SCH ×2 (11:21→18:10)
[2018-08-30] MEDS: Enoxaparin 80 mg Syringe SC SCH (11:32)
[2018-08-30] MEDS: Morphine 30 mg SR Tab PO SCH ×2 (11:37→23:29)
[2018-08-30 13:23] LABS: ARTERIAL BLOOD GAS HCO3 29.3 mmol/L (21-28); ARTERIAL BLOOD GAS HEMOGLOBIN 11.1 g/dL (11.7-17.4); ARTERIAL BLOOD GAS O2 CAPACITY 15.2 mL/dl (16-24); ARTERIAL BLOOD GAS O2 CONTENT 14.3 ML/dl (15-23); ARTERIAL BLOOD GAS O2 SAT 94.1 % (95-98); ARTERIAL BLOOD GAS PCO2 53 mm/Hg (35-45); ARTERIAL BLOOD GAS PH 7.35 (7.35-7.45); ARTERIAL BLOOD GAS TCO2 30.9 mmol.L (22-28)
--- NOTE | 2018-08-30 13:32 | CP.PCM.PN ---
Subjective - Date & Time of Evaluation Date of Evaluation: 08/30/18 Time of Evaluation: 10:40 - Subjective Subjective: Noted patient having fevers, feels tired but not in distress, no diarrhea, has cough with whitish phlegm as per patient. Objective - Vital Signs/Intake and Output Vital Signs (last 24 hours): Temp Pulse Resp BP Pulse Ox 98.7 F 120 H 19 121/58 L 93 L 08/29/18 06:00 08/29/18 14:00 08/29/18 06:00 08/29/18 13:51 08/29/18 06:00 Intake and Output: 08/29/18 08/29/18 06:59 18:59 Intake Total 1020 Output Total 1300 Balance -280 - Medications Medications: Current Medications Acetaminophen (Tylenol 325mg Tab) 650 mg PO Q6 PRN PRN Reason: TEMP>=99.5F Last Admin: 08/28/18 23:34 Dose: 650 mg Acetaminophen (Tylenol 650 Mg Supp) 650 mg RC Q6H PRN PRN Reason: TEMP>=99.5F Acetylcysteine (Acetylcysteine 20%) 4 ml IH [id number] [facility] Last Admin: 08/29/18 13:45 Dose: 4 ml Bisacodyl (Dulcolax) 10 mg RC HS PRN PRN Reason: Constipation Collagenase (Santyl) 0 gm TOP DAILY [facility] Last Admin: 08/29/18 09:35 Dose: Not Given Cyanocobalamin (Vitamin B12 1000 Mcg/Ml Inj) 1,000 mcg IM DAILY [facility] Stop: 09/04/18 10:01 Last Admin: 08/29/18 09:34 Dose: 1,000 mcg Enoxaparin Sodium (Lovenox) 80 mg SC Q12H [facility]; Protocol Last Admin: 08/29/18 09:35 Dose: 80 mg Ergocalciferol (Drisdol 50,000 Intl Units Cap) 1 cap PO Q7D [facility] Last Admin: 08/26/18 15:49 Dose: 1 cap Folic Acid (Folic Acid) 1 mg PO DAILY [facility] Last Admin: 08/29/18 09:34 Dose: 1 mg Vancomycin HCl 1.25 gm/ Sodium (Chloride) 250 mls @ 167 mls/hr IVPB Q12 [facility]; Protocol Last Admin: 08/29/18 09:58 Dose: 167 mls/hr Iron Sucrose 200 mg/ Sodium (Chloride) 110 mls @ 110 mls/hr IVPB DAILY [facility] Stop: 08/30/18 10:59 Last Admin: 08/29/18 09:58 Dose: 110 mls/hr Sodium Chloride (Sodium Chloride 0.9%) 1,000 mls @ 50 mls/hr IV .Q20H [facility] Last Admin: 08/29/18 06:15 Dose: 50 mls/hr Lactic Acid (Lac-Hydrin 12% Cream (140 G)) 0 ea TOP DAILY [facility] Last Admin: 08/29/18 09:36 Dose: 1 applic Levalbuterol HCl (Xopenex) 0.63 mg IH [id number] [facility] Last Admin: 08/29/18 13:45 Dose: 0.63 mg Lorazepam (Ativan) 1 mg IVP Q6H PRN; Protocol PRN Reason: Anxiety Lorazepam (Ativan) 2 mg IVP ONCE PRN; Protocol PRN Reason: Anxiety Metoprolol Tartrate (Lopressor) 25 mg PO Q8H [facility] Last Admin: 08/29/18 13:51 Dose: 25 mg Morphine Sulfate (Morphine Extended Release Tab) 90 mg PO Q12 [facility] Last Admin: 08/29/18 09:34 Dose: 90 mg Mupirocin (Bactroban Ointment) 0 gm TOP BID [facility] Last Admin: 08/29/18 09:44 Dose: Not Given Nicotine (Nicoderm Cq) 1 patch TD DAILY [facility] Last Admin: 08/29/18 09:35 Dose: 1 patch Ondansetron HCl (Zofran Inj) 4 mg IVP Q4H PRN PRN Reason: Nausea/Vomiting Pantoprazole Sodium (Protonix Ec Tab) 40 mg PO 0600 [facility] Last Admin: 08/29/18 06:14 Dose: 40 mg Polyethylene Glycol (Miralax) 17 gm PO Q8H [facility] Last Admin: 08/29/18 13:51 Dose: Not Given - Labs Labs: 08/29/18 06:30 08/29/18 06:30 PT 15.1 SECONDS (9.4-12.5) H 08/23/18 22:20 INR 1.36 08/23/18 22:20 APTT 27.9 Seconds (26.9-38.3) 08/23/18 22:20 - Constitutional Appears: Chronically Ill - Head Exam Head Exam: NORMAL INSPECTION - Respiratory Exam Respiratory Exam: Decreased Breath Sounds, Rales (scattered) - Cardiovascular Exam Cardiovascular Exam: +S1, +S2 - GI/Abdominal Exam GI & Abdominal Exam: Soft. absent: Tenderness Assessment and Plan - Assessment and Plan (Free Text) Plan: Assessment consider sepsis due to bilateral lower lobe hospital-acquired pneumonia Infected left lower extremity wounds, R/O osteomyelitis, grew MRSA chronic back pain vertebral disc disease venous stasis dermatitis Plan continue IV Vancomycin and add Merrem and will repeat blood cx, get sputum cx, PCT - Vancomycin will also cover the MRSA in the foot awaiting MRI of the foot follow up further plans of Podiatry will continue to monitor clinically discussed with Dr. Hernandez's team
--- NOTE | 2018-08-30 13:58 | CP.PCM.PCO ---
Physician Communication Note - Physician Communication Note Physician Communication Note: hypoxic r/o PNA vs CHF echo pending, Merrem added as per ID, reeval in am
--- NOTE | 2018-08-30 13:59 | CP.PCM.PCO ---
Physician Communication Note - Physician Communication Note Physician Communication Note: bilateral plueral eff R>L wet read
--- NOTE | 2018-08-30 14:14 | RAD ---
Date of service: 08/30/2018 HISTORY: pneumonia COMPARISON: 08/28/2018 FINDINGS: LUNGS: Increasing right-sided effusion and infiltrate PLEURA: Increasing right-sided pleural effusion. CARDIOVASCULAR: No aortic atherosclerotic calcification present. Normal cardiac size. No pulmonary vascular congestion. OSSEOUS STRUCTURES: No significant abnormalities. VISUALIZED UPPER ABDOMEN: Normal. OTHER FINDINGS: None. IMPRESSION: Increasing right-sided infiltrate and pleural effusion
--- NOTE | 2018-08-30 16:29 | PN ---
DATE: 08/30/2018 SUBJECTIVE: The patient is in now 262, bed two. The patient was transferred yesterday from because of hypoxemia, tachycardia, abnormal ABG with severe hypoxemia. The patient is now in room 262 bed two. The patient's overnight nurse's notes were reviewed. The patient has been refusing to be cleaned up and the patient is refusing daily nursing care. The patient's overnight nurse's notes were reviewed. Initially Thursday night, the patient also was attempting to refuse a CAT scan for evaluation of elevated D-dimer. PHYSICAL EXAMINATION: GENERAL: The patient was noticed by the program medical director to desaturate due to incorrect positioning of the nasal cannula. The patient is lying in the bed. VITAL SIGNS: T-max 102 dB, Fahrenheit telemetry shows sinus tachycardia, heart rate 103, blood pressure 96/44, respiration 20, O2 sat 100% on oxygen supplementation. HEENT: Head is normocephalic, atraumatic. HEENT examination shows pinkish pale conjunctivae. Anicteric sclerae. No oropharyngeal lesion. Overall chronic-appearing patient. CARDIOVASCULAR: S1, S2, regular rhythm. Positive tachycardia. LUNGS: Shows questionable decreased breath sounds at bases. Positive rhonchi upper lung redman. ABDOMEN: Soft. Positive bowel sounds. No palpable hepatosplenomegaly. GENITALIA: Male. EXTREMITIES: Various stages of sacral decubitus and also ulceration of the posterior thigh and bilateral lower extremity lymphedema and chronic venous stasis ulceration and dystrophic, elongated toenails noted. Gait examination could not be tested. DIAGNOSTICS: From the last 24 to 48 hours reviewed. CTA of the chest was reviewed. Chest x-ray was reviewed. LABORATORY DATA: As follows: From 08/30/2018, WBC 14, hemoglobin/hematocrit 10.1/34, platelet 229. Granulocytes 83% segs. Sodium is now up to 131 from 129, potassium 4.6, chloride 98, CO2 of 29, BUN 16, creatinine 0.9, glucose 93, calcium 7.4, magnesium 1.7. Troponin all three sets are negative. BNP is up to 5320, total protein 5.7, albumin 2.2. CT chest was reviewed. Bibasilar consolidation, pneumonia, and large bilateral pleural effusion and possible right middle lobe pneumonia. EKG shows sinus tachycardia, right bundle-branch block. Wound cultures were noted. IMPRESSION AND PLAN: 1. Acute hypoxic respiratory failure with severe hypoxemia, etiology undetermined. 2. Sinus tachycardia. 3. Right bundle-branch block. 4. High-grade fever of 102. 5. Questionable sepsis versus systemic inflammatory response syndrome. 6. Hypoxemia. 7. Leukocytosis with granulocytosis. 8. Normocytic iron-deficiency anemia. 9. Hyponatremia. 10. Hypomagnesemia. 11. Possible congestive heart failure with elevated ProBNP. 12. Mild protein malnutrition and hypoalbuminemia. 13. Bilateral large pleural effusion. 14. Bibasilar consolidation. 15. Right middle lobe pneumonia. 16. Pseudomonas rettgeri Providencia , Morganella morganii, corynebacterium, and methicillin-resistant Staphylococcus aureus, bilateral lower extremity venous stasis, ulceration, and cellulitis. 17. Sacral and gluteal and posterior thigh decubitus ulceration of variable stage. 18. Severe gait dysfunction. 19. Deconditioning. 20. Chronic narcotic-dependent pain syndrome. 21. Noncompliance. 22. Bilateral lower extremity lymphedema and venous stasis ulceration and chronic dermatitis. 23. Severe xerosis of the feet. 24. Severely dystrophic bilateral toenails. PLAN: At this time, the patient is to be monitored on telemetry. Echo with Doppler is pending. Cardiology evaluation noted. The patient was already started on meropenem on 08/28/2018, which seems like it has fallen off the MAR. The patient has been requested Interventional Radiology evaluation with Dr. Jero Tomlinson for possible thoracentesis. Patient is to be continued on IV vancomycin as per Infectious Disease orders. The patient will be continued on gentle dose IV fluid with monitoring of electrolytes and labs. We will review echocardiogram report and will discuss with Cardiology regarding treatment with diuretics if needed. The patient will continue on bronchodilator therapy, chest PT, incentive spirometry. The patient will continue on GI prophylaxis. At this time, the patient is presently on therapeutic anticoagulation with Lovenox, due to hypoxemia, due to high risk for thromboembolic events and elevated D-dimer and hypoxemia. The patient will continue also with daily physical therapy, occupational therapy, ambulation therapy. The patient will continue on medications as per the MAR of today. The patient's current consultation, Infectious Disease, Cardiology, Podiatry, Interventional Radiology. Overall prognosis is guarded due to the patient's decompensated medical state and decompensated clinical condition and multiple comorbidity. The patient has been advised that due to his medical condition and multiple complicated comorbidity, the patient will most likely benefit from 24 hours care and supervision whether at home or alternate options which I have advised the patient to discuss with the case management and foster care social worker. Carlos Hernandez MD
--- NOTE | 2018-08-30 16:31 | CP.PCM.PN ---
<Kisohr Liu - Last Filed: 08/30/18 16:30> Subjective - Date & Time of Evaluation Date of Evaluation: 08/30/18 Time of Evaluation: 16:30 - Subjective Subjective: Podiatry consult note for Dr. Lloyd 68 y/o seen and evaluated for infected skin ulcers and b/l foot pain. Patient seen to be resting in bed without any complaints. Patient moved to telemetry overnight for further monitoring. Objective - Vital Signs/Intake and Output Vital Signs (last 24 hours): Temp Pulse Resp BP Pulse Ox 98.6 F 103 H 18 97/46 L 100 08/30/18 06:12 08/30/18 12:18 08/30/18 12:18 08/30/18 12:18 08/30/18 06:12 Intake and Output: 08/30/18 08/30/18 06:59 18:59 Intake Total 660 Output Total 500 Balance 160 - Medications Medications: Current Medications Acetaminophen (Tylenol 325mg Tab) 650 mg PO Q6 PRN PRN Reason: TEMP>=99.5F Last Admin: 08/30/18 01:53 Dose: 650 mg Acetaminophen (Tylenol 650 Mg Supp) 650 mg RC Q6H PRN PRN Reason: TEMP>=99.5F Acetylcysteine (Acetylcysteine 20%) 4 ml IH [id number] [facility] Last Admin: 08/30/18 13:49 Dose: Not Given Bisacodyl (Dulcolax) 10 mg RC HS PRN PRN Reason: Constipation Collagenase (Santyl) 0 gm TOP DAILY [facility] Last Admin: 08/29/18 19:00 Dose: 1 appl Cyanocobalamin (Vitamin B12 1000 Mcg/Ml Inj) 1,000 mcg IM DAILY [facility] Stop: 09/04/18 10:01 Last Admin: 08/30/18 11:30 Dose: 1,000 mcg Enoxaparin Sodium (Lovenox) 40 mg SC DAILY [facility]; Protocol Ergocalciferol (Drisdol 50,000 Intl Units Cap) 1 cap PO Q7D [facility] Last Admin: 08/26/18 15:49 Dose: 1 cap Folic Acid (Folic Acid) 1 mg PO DAILY [facility] Last Admin: 08/30/18 09:32 Dose: 1 mg Vancomycin HCl 1.25 gm/ Sodium (Chloride) 250 mls @ 167 mls/hr IVPB Q12 [facility]; Protocol Last Admin: 08/30/18 12:53 Dose: 167 mls/hr Meropenem (Merrem Iv 1 Gm Premix) 1 gm in 50 mls @ 100 mls/hr IVPB Q8 [facility]; Protocol Stop: 09/06/18 09:16 Last Admin: 08/30/18 09:31 Dose: 100 mls/hr Lactic Acid (Lac-Hydrin 12% Cream (140 G)) 0 ea TOP DAILY [facility] Last Admin: 08/30/18 11:21 Dose: Not Given Levalbuterol HCl (Xopenex) 0.63 mg IH [id number] [facility] Last Admin: 08/30/18 13:49 Dose: Not Given Lorazepam (Ativan) 1 mg IVP Q6H PRN; Protocol PRN Reason: Anxiety Lorazepam (Ativan) 2 mg IVP ONCE PRN; Protocol PRN Reason: Anxiety Metoprolol Tartrate (Lopressor) 50 mg PO Q8H [facility] Last Admin: 08/30/18 09:17 Dose: 50 mg Morphine Sulfate (Morphine Extended Release Tab) 90 mg PO Q12 [facility] Last Admin: 08/30/18 11:37 Dose: 90 mg Mupirocin (Bactroban Ointment) 0 gm TOP BID [facility] Last Admin: 08/30/18 11:21 Dose: Not Given Nicotine (Nicoderm Cq) 1 patch TD DAILY [facility] Last Admin: 08/30/18 11:36 Dose: 1 patch Ondansetron HCl (Zofran Inj) 4 mg IVP Q4H PRN PRN Reason: Nausea/Vomiting Pantoprazole Sodium (Protonix Ec Tab) 40 mg PO 0600 [facility] Last Admin: 08/30/18 05:33 Dose: 40 mg Polyethylene Glycol (Miralax) 17 gm PO DAILY [facility] - Labs Labs: 08/30/18 07:05 08/30/18 07:05 PT 15.1 SECONDS (9.4-12.5) H 08/23/18 22:20 INR 1.36 08/23/18 22:20 APTT 27.9 Seconds (26.9-38.3) 08/23/18 22:20 - Constitutional Appears: Well, Non-toxic, No Acute Distress - Head Exam Head Exam: ATRAUMATIC, NORMOCEPHALIC - Extremities Exam Additional comments: VASC: DP and PT non-palpable, TG warm to warm bilaterally, significant lymphedema noted bilaterally, non-pitting NEURO: grossly intact DERM: LEFT- 0.5 cm X 0.5 cm wound noted to submetatarsal 1 head, significantly improved, fibrotic base, no drainage, no tunneling, tracking or probe to bone, positive malodor, multiple superficial wounds noted to the lateral aspect of the left ankle with 100% granular skin base, no drainage, no probe to bone, no tunneling or tracking, no malodor, chronic skin trophic changes secondary to long standing peripheral vascular disease RIGHT- superficial wound noted to the lateral aspect of the leg at the site of previous chronic skin trophic changes secondary to long standing peripheral vascular disease, wound base 100% granular, minimal serous drainage, mild malodor, no tunneling, tracking or probe to bone ORTHO: pain with range of motion, and on palpation to the feet and legs bialterally - Neurological Exam Neurological Exam: Alert, Awake, Oriented x3 - Psychiatric Exam Psychiatric exam: Normal Affect, Normal Mood Assessment and Plan - Assessment and Plan (Free Text) Assessment: 68 y/o male patient seen and evaluated for bilateral lower extremity wounds Plan: Patient seen and evaluated with Dr. Lloyd Discussed in detail with Dr. Lloyd Afebrile, absent leukocytosis Bilateral foot x-ray ordered-no osteo on xray Vascular consult placed, recommendations appreciated Patient refused CT and MRI , states it is too painful patient to be treated as he has osteomyelitis Obtained Left foot wound cultures: MRSA, Morg roxanneanii Continue IV Abx Infection Disease consult, recommendations appreciated Wound cleansed with saline and dressed with bactroban, maxorb, adaptic, ABD DSD Ammonium lactate applied to both legs Podiatry will continue to follow patient while in house <Kvng Lloyd - Last Filed: 08/31/18 10:01> Objective - Vital Signs/Intake and Output Vital Signs (last 24 hours): Temp Pulse Resp BP Pulse Ox 98.2 F 96 H 20 98/56 L 91 L 08/31/18 06:00 08/31/18 08:03 08/31/18 06:00 08/31/18 06:00 08/31/18 06:00 Intake and Output: 08/31/18 08/31/18 06:59 18:59 Intake Total 1190 Output Total 850 Balance 340 - Medications Medications: Current Medications Acetaminophen (Tylenol 325mg Tab) 650 mg PO Q6 PRN PRN Reason: TEMP>=99.5F Last Admin: 08/30/18 01:53 Dose: 650 mg Acetaminophen (Tylenol 650 Mg Supp) 650 mg RC Q6H PRN PRN Reason: TEMP>=99.5F Acetylcysteine (Acetylcysteine 20%) 4 ml IH [id number] [facility] Last Admin: 08/31/18 07:56 Dose: 4 ml Bisacodyl (Dulcolax) 10 mg RC HS PRN PRN Reason: Constipation Collagenase (Santyl) 0 gm TOP DAILY [facility] Last Admin: 08/30/18 10:00 Dose: Not Given Cyanocobalamin (Vitamin B12 1000 Mcg/Ml Inj) 1,000 mcg IM DAILY [facility] Stop: 09/04/18 10:01 Last Admin: 08/30/18 11:30 Dose: 1,000 mcg Enoxaparin Sodium (Lovenox) 40 mg SC DAILY [facility]; Protocol Ergocalciferol (Drisdol 50,000 Intl Units Cap) 1 cap PO Q7D [facility] Last Admin: 08/26/18 15:49 Dose: 1 cap Folic Acid (Folic Acid) 1 mg PO DAILY [facility] Last Admin: 08/30/18 09:32 Dose: 1 mg Furosemide (Lasix) 40 mg IVP DAILY [facility] Meropenem (Merrem Iv 1 Gm Premix) 1 gm in 50 mls @ 100 mls/hr IVPB Q12 [facility]; Protocol Stop: 09/07/18 10:01 Linezolid (Zyvox 600mg/300ml D5w) 600 mg in 300 mls @ 200 mls/hr IVPB Q12 [facility]; Protocol Stop: 09/07/18 10:01 NOREPINEPHRINE BIT/0.9 % NACL (Levophed 4 Mg/ 250 Ml Ns Premixed) 4 mg in 250 mls @ 15 mls/hr IV .[id number] PRN; Protocol PRN Reason: TITRATE PER MD ORDER Lactic Acid (Lac-Hydrin 12% Cream (140 G)) 0 ea TOP DAILY [facility] Last Admin: 08/30/18 11:21 Dose: Not Given Levalbuterol HCl (Xopenex) 0.63 mg IH [id number] [facility] Last Admin: 08/31/18 07:56 Dose: 0.63 mg Lorazepam (Ativan) 1 mg IVP Q6H PRN; Protocol PRN Reason: Anxiety Metoprolol Tartrate (Lopressor) 50 mg PO Q8H [facility] Last Admin: 08/31/18 00:00 Dose: 50 mg Morphine Sulfate (Morphine Extended Release Tab) 90 mg PO Q12 [facility] Last Admin: 08/30/18 23:29 Dose: 90 mg Mupirocin (Bactroban Ointment) 0 gm TOP BID [facility] Last Admin: 08/30/18 18:10 Dose: Not Given Nicotine (Nicoderm Cq) 1 patch TD DAILY [facility] Last Admin: 08/30/18 11:36 Dose: 1 patch Ondansetron HCl (Zofran Inj) 4 mg IVP Q4H PRN PRN Reason: Nausea/Vomiting Pantoprazole Sodium (Protonix Ec Tab) 40 mg PO 0600 [facility] Last Admin: 08/31/18 05:33 Dose: 40 mg Polyethylene Glycol (Miralax) 17 gm PO DAILY [facility] - Labs Labs: 08/31/18 07:20 08/31/18 07:20 PT 15.1 SECONDS (9.4-12.5) H 08/23/18 22:20 INR 1.36 08/23/18 22:20 APTT 27.9 Seconds (26.9-38.3) 08/23/18 22:20 Attending/Attestation - Attestation I have personally seen and examined this patient.: Yes I have fully participated in the care of the patient.: Yes I have reviewed all pertinent clinical information, including history, physical exam and plan: Yes
--- NOTE | 2018-08-30 17:11 | CARD ---
APPROVED REPORT Date of service: 08/30/2018 EKG Measurement Heart [id number] <Conclusion> Sinus tachycardia with fusion complexes Right bundle branch block Left posterior fascicular block Bifascicular block T wave abnormality, consider inferior ischemia Abnormal ECG
--- NOTE | 2018-08-30 17:53 | CARD ---
APPROVED REPORT Date of service: 08/30/2018 EXAM: Two-dimensional and M-mode echocardiogram with Doppler and color Doppler. INDICATION R/O CHF 2D DIMENSIONS Left Atrium (2D)3.3 (1.6-4.0cm)IVSd1.0 (0.7-1.1cm) LVDd3.6 (3.9-5.9cm)PWd1.1 (0.7-1.1cm) M-Mode DIMENSIONS Aortic Root3.30 (2.2-3.7cm)Aortic Cusp Exc.1.50 (1.5-2.0cm) Aortic Valve AoV Peak Fllialtf463.0cm/Maryuri Peak GR.17mmHg Mitral Valve E/A ratio0.0 TDI E/Lateral E'0.0E/Medial E'0.0 Pulmonary Valve PV Peak Bkbhazyl40.6cm/sPV Peak Grad.2mmHg Tricuspid Valve TR Peak [id number]/sRAP [id number] Peak Gr.22mmHg [id number] LEFT VENTRICLE The left ventricle is normal size. There is normal left ventricular wall thickness. The systolic function is mildly impaired. There is moderate hypokinesis of the inferoseptal wall. RIGHT VENTRICLE The right ventricle is normal size. The right ventricular systolic function is normal. ATRIA The left atrium size is normal. The right atrium size is normal. The interatrial septum is intact with no evidence for an atrial septal defect. AORTIC VALVE The aortic valve is normal in structure. No aortic regurgitation is present. MITRAL VALVE Mitral annular calcification is moderate. Mitral regurgitation is mild. TRICUSPID VALVE The tricuspid valve is normal in structure. There is moderate tricuspid regurgitation. PULMONIC VALVE The pulmonary valve is normal in structure. GREAT VESSELS The aortic root is normal in size. The IVC is normal in size and collapses >50% with inspiration. PERICARDIAL EFFUSION There is large left pleural effusion. There is no pericardial effusion. <Conclusion> Normal chamber size. Mildly reduced LV systolic function with inferoseptal hypokinesis. Mild MR. Moderate TR. Large left pleural effusion present.
--- NOTE | 2018-08-30 18:17 | PN ---
DATE: 08/30/2018 SUBJECTIVE: The patient denies chest pain. He is currently short of breath. PHYSICAL EXAMINATION: VITAL SIGNS: Blood pressure 97/46, heart rate 107, T-max 98.6, and respiration 18. HEENT: Normocephalic. CHEST: Absent breath sounds over both bases. HEART: S1 and S2 regular. ABDOMEN: Soft. EXTREMITIES: Dressing is applied to both feet and legs. LABORATORY DATA: Hemoglobin and hematocrit 10.1 and 33.9. White count 14 and platelet count 129,000. SMA-7: Sodium 131, potassium 4.6, chloride 98, CO2 of 29, glucose 93, BUN 16, and creatinine 0.9. Blood cultures negative after 24 hours. ASSESSMENT: 1. Right lower lobe pneumonia, rule out worsening of the patient's pneumonia. 2. Stage III sacral decubitus. 3. Bilateral leg cellulitis. 4. Abnormal electrocardiogram with evidence of right bundle branch block. 5. Anemia requiring packed RBC transfusion. RECOMMENDATIONS: Case was discussed with the primary physician. The patient will be maintained on Lopressor 50 mg every 8 hours, IV meropenem at 1 g every 8 hours, subcutaneous Lovenox 20 mg daily, Protonix 40 mg once a day, and vancomycin at 1.25 mg every 12 hours. A bedside echo will be performed today and I would request portable chest x-ray as a followup. Jayy Zapata MD
[2018-08-30 18:27] LABS: ARTERIAL BLOOD GAS HCO3 30.8 mmol/L (21-28); ARTERIAL BLOOD GAS HEMOGLOBIN 10.5 g/dL (11.7-17.4); ARTERIAL BLOOD GAS O2 CAPACITY 14.2 mL/dl (16-24); ARTERIAL BLOOD GAS O2 CONTENT 12.1 ML/dl (15-23); ARTERIAL BLOOD GAS O2 SAT 85.2 % (95-98); ARTERIAL BLOOD GAS PCO2 57 mm/Hg (35-45); ARTERIAL BLOOD GAS PH 7.34 (7.35-7.45); ARTERIAL BLOOD GAS TCO2 32.5 mmol.L (22-28)
[2018-08-31] MEDS: Acetylcysteine 20% Inhal Soln (4ml) IH SCH ×4 (01:30→20:20)
[2018-08-31] MEDS: Levalbuterol 0.63 MG/3 ML Inhal Soln UD IH SCH ×4 (01:30→20:20)
[2018-08-31] MEDS: Pantoprazole 40 mg EC Tab PO SCH (05:33)
[2018-08-31] MEDS: Meropenem IV 1 gm in NS 1 GM/50 ML BAG IVPB SCH ×3 (05:33→22:16)
[2018-08-31 07:30] LABS: ARTERIAL BLOOD GAS HCO3 30.3 mmol/L (21-28); ARTERIAL BLOOD GAS O2 SAT 98.8 % (95-98); ARTERIAL BLOOD GAS PCO2 69 mm/Hg (35-45); ARTERIAL BLOOD GAS PH 7.25 (7.35-7.45); ARTERIAL BLOOD GAS TCO2 32.4 mmol.L (22-28)
[2018-08-31 07:35] LABS: ALB/GLOB RATIO 0.7 (1.1-1.8); ALBUMIN 2.3 g/dL (3.0-4.8); BASO # 0.04 K/mm3 (0.0-2.0); BASO % 0.2 % (0.0-3.0); BILIRUBIN,DIRECT 0.4 mg/dL (0.0-0.4); CALCIUM 7.6 mg/dL (8.4-10.5); EOS # 1.4 (0.0-0.7); EOS % 5.6 % (1.5-5.0); HEMOGLOBIN 10.4 g/dL (14.0-18.0); LYMPH # 1.1 (1.2-3.4); LYMPH % 4.4 % (22.0-35.0); MEAN CELL VOLUME 92.1 fl (80.0-105.0); MEAN CORPUSCULAR HEMOGLOBIN 27.4 pg (25.0-35.0); MEAN CORPUSCULAR HGB CONC 29.7 g/dl (31.0-37.0); MEAN PLATELET VOLUME 9.9 fl (7.0-11.0); MONO # 0.9 (0.1-0.6); MONO % 3.7 % (1.0-6.0); PLATELET COUNT 219 10^3/uL (120.0-450.0); RED CELL DISTRIBUTION WIDTH 14.5 % (11.5-14.5); WHITE BLOOD COUNT 24.2 10^3/uL (4.5-11.0)
[2018-08-31 08:08] LABS: BAND 9 % (0-2); EOSINOPHIL 5 % (0.0-3.0); LYMPHOCYTE 3 % (22.0-35.0); METAMYELOCYTE 1 %; MONOCYTE 4 % (1.0-6.0); NEUTROPHIL 78 % (50.0-70.0); PLATELET ESTIMATE NORMAL (NORMAL)
--- NOTE | 2018-08-31 09:42 | RAD ---
Date of service: 08/31/2018 HISTORY: CHF COMPARISON: 08/30/2018 FINDINGS: LUNGS: No definite infiltrate. Opacity in both lungs likely due to dependent pleural fluid. PLEURA: Bilateral pleural effusion, right greater than left. No significant change. CARDIOVASCULAR: There is atherosclerotic calcification of the thoracic aorta. Evaluation of the heart is limited due to oblique positioning of the patient. No pulmonary vascular congestion. OSSEOUS STRUCTURES: No significant abnormalities. VISUALIZED UPPER ABDOMEN: Normal. OTHER FINDINGS: Bilateral pleural effusion, right greater than left. No significant change. IMPRESSION: No active disease.
[2018-08-31 09:43] LABS: TROPONIN I 0.03 ng/mL
[2018-08-31] MEDS: NOREPINEPHRINE BIT/0.9 % NACL 4 MG/250 ML BAG IV PRN ×2 (09:59→18:58)
--- NOTE | 2018-08-31 10:12 | CARD ---
APPROVED REPORT Date of service: 08/31/2018 EKG Measurement Heart [id number] <Conclusion> Sinus tachycardia Right bundle branch block Left posterior fascicular block Bifascicular block T wave abnormality, consider inferior ischemia Abnormal ECG
[2018-08-31] MEDS: Enoxaparin 40 mg Syringe SC SCH (10:49)
[2018-08-31] MEDS: Morphine 30 mg SR Tab PO SCH (10:50)
--- NOTE | 2018-08-31 11:04 | CP.PCM.CON ---
<Augusto Zimmerman - Last Filed: 08/31/18 13:43> History of Present Illness - History of Present Illness History of Present Illness: Augusto Zimmerman, PGY-1 ICU Consult Note for Dr Angel: Pt is a 68 yo M with pmhx of chronic back pain and vertebral disc disease who presented to the [facility] ED for complaints of b/l foot pain and back pain. Pt was found to have infected skin ulcers and have sacral ulcer as well. ICU is consulted for management of pts acute hypercapnic respiratory failure and AMS. Pt is currently altered and is therefore not able to answer any questions related to ROS. Pt at this time is on Bipap and is sating well. Pmhx: chronic back pain and vertebral disc disease Pshx: L ear surgery in early 30s Allergies: PCN Fam hx: Dad from cancer in lymph nodes Soc hx: Smokes 1/2-1 ppd x 60 y, occasional marijuana use; denies EtOH or other illicit drug use PMD: None Review of Systems - Review of Systems Systems not reviewed;Unavailable: Altered Mental Status (12 point ROS unable to be completed due to pts AMS) Past Patient History - Past Social History Chewing Tobacco Use: No - CARDIAC Hx Cardiac Disorders: No Hx Hypertension: No Hx Pacemaker: No - PULMONARY Hx Respiratory Disorders: No Hx Asthma: No Hx Chronic Obstructive Pulmonary Disease (COPD): No Hx Emphysema: No - NEUROLOGICAL HX Cerebrovascular Accident: No Hx Dementia: No Hx Seizures: No - RENAL Hx Chronic Kidney Disease: No - HEMATOLOGICAL/ONCOLOGICAL Hx Cancer: No - INTEGUMENTARY Other/Comment: cellulitis ble - MUSCULOSKELETAL/RHEUMATOLOGICAL Hx Musculoskeletal Disorders: Yes - GASTROINTESTINAL Hx Gastroesophageal Reflux: No - GENITOURINARY/GYNECOLOGICAL Hx Genitourinary Disorders: No - PSYCHIATRIC Hx Depression: No Hx Emotional Abuse: No Hx Physical Abuse: No Hx Substance Use: No - SURGICAL HISTORY Hx Surgeries: No Meds Allergies/Adverse Reactions: Allergies Allergy/AdvReac Type Severity Reaction Status Date / Time Penicillins Allergy RASH Verified 08/23/18 21:25 - Medications Medications: Current Medications Acetaminophen (Tylenol 325mg Tab) 650 mg PO Q6 PRN PRN Reason: TEMP>=99.5F Last Admin: 08/30/18 01:53 Dose: 650 mg Acetaminophen (Tylenol 650 Mg Supp) 650 mg RC Q6H PRN PRN Reason: TEMP>=99.5F Acetylcysteine (Acetylcysteine 20%) 4 ml IH [id number] CASSY Last Admin: 08/31/18 07:56 Dose: 4 ml Bisacodyl (Dulcolax) 10 mg RC HS PRN PRN Reason: Constipation Collagenase (Santyl) 0 gm TOP DAILY CASSY Last Admin: 08/30/18 10:00 Dose: Not Given Cyanocobalamin (Vitamin B12 1000 Mcg/Ml Inj) 1,000 mcg IM DAILY C[facility]Y Stop: 09/04/18 10:01 Last Admin: 08/30/18 11:30 Dose: 1,000 mcg Enoxaparin Sodium (Lovenox) 40 mg SC DAILY C[facility]; Protocol Ergocalciferol (Drisdol 50,000 Intl Units Cap) 1 cap PO Q7D [facility] Last Admin: 08/26/18 15:49 Dose: 1 cap Folic Acid (Folic Acid) 1 mg PO DAILY [facility] Last Admin: 08/30/18 09:32 Dose: 1 mg Furosemide (Lasix) 40 mg IVP Q12H [facility] Meropenem (Merrem Iv 1 Gm Premix) 1 gm in 50 mls @ 100 mls/hr IVPB Q12 [facility]; Protocol Stop: 09/07/18 10:01 Linezolid (Zyvox 600mg/300ml D5w) 600 mg in 300 mls @ 200 mls/hr IVPB Q12 [facility]; Protocol Stop: 09/07/18 10:01 NOREPINEPHRINE BIT/0.9 % NACL (Levophed 4 Mg/ 250 Ml Ns Premixed) 4 mg in 250 mls @ 15 mls/hr IV .[id number] PRN; Protocol PRN Reason: TITRATE PER MD ORDER Last Admin: 08/31/18 09:59 Dose: 4 mcg/min, 15 mls/hr Lactic Acid (Lac-Hydrin 12% Cream (140 G)) 0 ea TOP DAILY [facility] Last Admin: 08/30/18 11:21 Dose: Not Given Levalbuterol HCl (Xopenex) 0.63 mg IH [id number] CASSY Last Admin: 08/31/18 07:56 Dose: 0.63 mg Lorazepam (Ativan) 1 mg IVP Q6H PRN; Protocol PRN Reason: Anxiety Metoprolol Tartrate (Lopressor) 50 mg PO Q8H [facility] Last Admin: 08/31/18 10:03 Dose: Not Given Morphine Sulfate (Morphine Extended Release Tab) 90 mg PO Q12 [facility] Last Admin: 08/30/18 23:29 Dose: 90 mg Mupirocin (Bactroban Ointment) 0 gm TOP BID [facility] Last Admin: 08/30/18 18:10 Dose: Not Given Nicotine (Nicoderm Cq) 1 patch TD DAILY [facility] Last Admin: 08/30/18 11:36 Dose: 1 patch Ondansetron HCl (Zofran Inj) 4 mg IVP Q4H PRN PRN Reason: Nausea/Vomiting Pantoprazole Sodium (Protonix Ec Tab) 40 mg PO 0600 [facility] Last Admin: 08/31/18 05:33 Dose: 40 mg Polyethylene Glycol (Miralax) 17 gm PO DAILY [facility] Physical Exam - Constitutional Appears: Confused - Head Exam Head Exam: ATRAUMATIC, NORMAL INSPECTION, NORMOCEPHALIC - Eye Exam Eye Exam: EOMI, Normal appearance, PERRL - Respiratory Exam Respiratory Exam: Decreased Breath Sounds. absent: Accessory Muscle Use, Rales, Rhonchi Additional comments: Pt is placed on Bipap with settings of 20/5, 16RR, [id number]. - Cardiovascular Exam Cardiovascular Exam: RRR, +S1, +S2. absent: Gallop, Rubs - GI/Abdominal Exam GI & Abdominal Exam: Normal Bowel Sounds, Soft. absent: Guarding, Rebound, Rigid, Tenderness - Extremities Exam Extremities exam: Negative for: calf tenderness, pedal edema Additional comments: Pt has multipodus boots on both feet. Pt also has evidence of chronic venous statis skin changes on LE. - Back Exam Back exam: NORMAL INSPECTION. absent: CVA tenderness (L), CVA tenderness (R) - Neurological Exam Neurological exam: Altered - Psychiatric Exam Additional comments: Altered - Skin Skin Exam: Dry, Normal Color (except where noted above.), Warm Results - Vital Signs Recent Vital Signs: Last Vital Signs Temp 98.2 F 08/31/18 06:00 Pulse 96 H 08/31/18 08:03 Resp 20 08/31/18 06:00 BP 98/56 L 08/31/18 06:00 Pulse Ox 91 L 08/31/18 06:00 - Labs Result Diagrams: 08/31/18 07:20 08/31/18 07:20 Labs: Laboratory Results - last 24 hr 02/11/19 02/11/19 02/11/19 12:00 12:00 13:00 WBC RBC Hgb Hct MCV MCH MCHC RDW Plt Count MPV Neut % (Auto) Lymph % (Auto) Lamb % (Auto) Eos % (Auto) Baso % (Auto) Lymph # (Auto) Lamb # (Auto) Eos # (Auto) Baso # (Auto) Absolute Neuts (auto) Neutrophils % (Manual) Band Neutrophils % Lymphocytes % (Manual) Monocytes % (Manual) Eosinophils % (Manual) Metamyelocytes % Platelet Evaluation pCO2 pO2 HCO3 ABG pH ABG Total CO2 ABG O2 Saturation ABG O2 Content ABG Base Excess ABG Hemoglobin ABG Carboxyhemoglobin POC ABG HHb (Measured) ABG Methemoglobin ABG O2 Capacity ABG Potassium Hgb O2 Saturation Sodium Chloride Glucose Lactate FiO2 Crit Value Called To Crit Value Called By Blood Gas Notified Time Potassium Carbon Dioxide Anion Gap BUN Creatinine Est GFR ( Amer) Est GFR (Non-Af Amer) Random Glucose Calcium Magnesium Total Bilirubin Direct Bilirubin AST ALT Alkaline Phosphatase Lactate Dehydrogenase 441 Total Creatine Kinase Troponin I NT-Pro-B Natriuret Pep Total Protein Albumin Globulin Albumin/Globulin Ratio Procalcitonin 0.61 H Arterial Blood Potassium Influenza Typ A,B (EIA) Negative for flu a/b 08/30/18 08/30/18 08/31/18 13:10 18:23 07:20 WBC 24.2 H D RBC 3.80 Hgb 10.4 L Hct 35.0 L MCV 92.1 MCH 27.4 MCHC 29.7 L RDW 14.5 Plt Count 219 MPV 9.9 Neut % (Auto) 86.1 H Lymph % (Auto) 4.4 L Lamb % (Auto) 3.7 Eos % (Auto) 5.6 H Baso % (Auto) 0.2 Lymph # (Auto) 1.1 L Lamb # (Auto) 0.9 H Eos # (Auto) 1.4 H Baso # (Auto) 0.04 Absolute Neuts (auto) 20.84 H Neutrophils % (Manual) 78 H Band Neutrophils % 9 H Lymphocytes % (Manual) 3 L Monocytes % (Manual) 4 Eosinophils % (Manual) 5 H Metamyelocytes % 1 Platelet Evaluation Normal pCO2 53 H 57 H pO2 60.0 L 43.0 L* HCO3 29.3 H 30.8 H ABG pH 7.35 7.34 L ABG Total CO2 30.9 H 32.5 H ABG O2 Saturation 94.1 L 85.2 L ABG O2 Content 14.3 L 12.1 L ABG Base Excess 2.8 4.0 H ABG Hemoglobin 11.1 L 10.5 L ABG Carboxyhemoglobin 1.8 H 2.2 H POC ABG HHb (Measured) 5.7 H 14.3 H ABG Methemoglobin 1.3 1.2 ABG O2 Capacity 15.2 L 14.2 L ABG Potassium Hgb O2 Saturation 91.2 L 82.3 L Sodium Chloride Glucose Lactate FiO2 40.0 45.0 Crit Value Called To Mary Ross rn Crit Value Called By Rv Blood Gas Notified Time 2307 [id number] Potassium Carbon Dioxide Anion Gap BUN Creatinine Est GFR ( Amer) Est GFR (Non-Af Amer) Random Glucose Calcium Magnesium Total Bilirubin Direct Bilirubin AST ALT Alkaline Phosphatase Lactate Dehydrogenase Total Creatine Kinase Troponin I NT-Pro-B Natriuret Pep Total Protein Albumin Globulin Albumin/Globulin Ratio Procalcitonin Arterial Blood Potassium Influenza Typ A,B (EIA) 08/31/18 08/31/18 08/31/18 07:20 07:20 08:55 WBC RBC Hgb Hct MCV MCH MCHC RDW Plt Count MPV Neut % (Auto) Lymph % (Auto) Lamb % (Auto) Eos % (Auto) Baso % (Auto) Lymph # (Auto) Lamb # (Auto) Eos # (Auto) Baso # (Auto) Absolute Neuts (auto) Neutrophils % (Manual) Band Neutrophils % Lymphocytes % (Manual) Monocytes % (Manual) Eosinophils % (Manual) Metamyelocytes % Platelet Evaluation pCO2 69 H pO2 96.0 HCO3 30.3 H ABG pH 7.25 L ABG Total CO2 32.4 H ABG O2 Saturation 98.8 H ABG O2 Content ABG Base Excess 1.2 ABG Hemoglobin ABG Carboxyhemoglobin POC ABG HHb (Measured) ABG Methemoglobin ABG O2 Capacity ABG Potassium 4.3 Hgb O2 Saturation Sodium 131 L 130.0 L Chloride 97 L 100.0 Glucose 94 Lactate 0.7 FiO2 90.0 Crit Value Called To Crit Value Called By [id number] Blood Gas Notified Time 730 Potassium 4.7 Carbon Dioxide 31 Anion Gap 7 L BUN 25 H Creatinine 1.5 Est GFR ( Amer) 56 Est GFR (Non-Af Amer) 46 Random Glucose 98 Calcium 7.6 L Magnesium 1.7 Total Bilirubin 0.4 Direct Bilirubin 0.4 AST 31 ALT 20 Alkaline Phosphatase 106 Lactate Dehydrogenase Total Creatine Kinase 21 L Troponin I 0.03 D NT-Pro-B Natriuret Pep 26212 H Total Protein 5.7 L Albumin 2.3 L Globulin 3.4 Albumin/Globulin Ratio 0.7 L Procalcitonin Arterial Blood Potassium 4.3 Influenza Typ A,B (EIA) Assessment & Plan - Assessment and Plan (Free Text) Assessment: Pt is a 68 yo M with pmhx of chronic back pain and vertebral disc disease who presented to the [facility] ED for complaints of b/l foot pain and back pain. ICU is consulted for management of pts acute hypercapnic respiratory failure and AMS. Plan: Neuro: CO2 Narcosis: - Pt is noted to be altered at this time - Pt is AOx0, awakens to painful stimuli, but is protecting his airway and is sating well on Bipap - Pt was just transitioned from hi-flow to Bipap and will continue to monitor improvement on Bipap Pulm: Acute hypercapnic resp failure leading to respiratory acidosis w/ chronic incomplete compensatory resp alkalosis: - Likely 2/2 CHF exacerbation vs PNA unlikely PE due to r/o by CTA - CXR shows b/l PE R greater than L. - Echo showed [place] - [place] [address] - Will give pt lasix 40 IVP - Abrams - Strict I/Os - Daily weight PNA vs CHF: - Procal elevated - CXR and echo resulted noted above - ID on board, recs appreciated: Merrem q8 and vanc day 2 of combination tx - Repeat blood, urine and sputum cultures Cardio: Shock: Septic vs cardiogenic: - Pt is noted to be hypotensive, pressures 69/25 - Pressors started due to hypotension. Cont levophed. - Will try lasix for diuresis for suspected cardiogenic shock - Thoracentesis done: 1700ml out - Will cont to monitor - Goal is MAP > 65 Nephro: Pre-renal Azotemia: - BUN/Cr = 25/1.5 - Will cont to monitor - Will give lasix, now due to fluid overload and respiratory compromise but will limit other nephrotoxic agents GI: - NPO MSK: B/l foot cellulitis - MRSA (+): - Pt on multipodus boots - ID on board: IV Vanc day 8 - Pt is refusing MRI for osteo r/o Stage 3 Sacral decub ulcer: - Pt refuses MRI - Santyl and local wound care - Cont Vanc per ID recs DVT PPx: Lovenox 40 Case seen and discussed with Dr. Jeanne Zimmerman, PGY-1 <Lynn Angel - Last Filed: 08/31/18 14:35> Meds - Medications Medications: Current Medications Acetaminophen (Tylenol 325mg Tab) 650 mg PO Q6 PRN PRN Reason: TEMP>=99.5F Last Admin: 08/30/18 01:53 Dose: 650 mg Acetaminophen (Tylenol 650 Mg Supp) 650 mg RC Q6H PRN PRN Reason: TEMP>=99.5F Acetylcysteine (Acetylcysteine 20%) 4 ml IH [id number] [facility] Last Admin: 08/31/18 13:29 Dose: 4 ml Bisacodyl (Dulcolax) 10 mg RC HS PRN PRN Reason: Constipation Collagenase (Santyl) 0 gm TOP DAILY [facility] Last Admin: 08/31/18 11:26 Dose: Not Given Cyanocobalamin (Vitamin B12 1000 Mcg/Ml Inj) 1,000 mcg IM DAILY [facility] Stop: 09/04/18 10:01 Last Admin: 08/31/18 10:50 Dose: 1,000 mcg Enoxaparin Sodium (Lovenox) 40 mg SC DAILY [facility]; Protocol Last Admin: 08/31/18 10:49 Dose: 40 mg Ergocalciferol (Drisdol 50,000 Intl Units Cap) 1 cap PO Q7D [facility] Last Admin: 08/26/18 15:49 Dose: 1 cap Folic Acid (Folic Acid) 1 mg PO DAILY [facility] Last Admin: 08/31/18 11:25 Dose: Not Given Furosemide (Lasix) 40 mg IVP Q12H [facility] Last Admin: 08/31/18 11:25 Dose: Not Given Meropenem (Merrem Iv 1 Gm Premix) 1 gm in 50 mls @ 100 mls/hr IVPB Q12 [facility]; Protocol Stop: 09/07/18 10:01 Last Admin: 08/31/18 10:48 Dose: 100 mls/hr Linezolid (Zyvox 600mg/300ml D5w) 600 mg in 300 mls @ 200 mls/hr IVPB Q12 [facility]; Protocol Stop: 09/07/18 10:01 Last Admin: 08/31/18 12:21 Dose: 200 mls/hr NOREPINEPHRINE BIT/0.9 % NACL (Levophed 4 Mg/ 250 Ml Ns Premixed) 4 mg in 250 mls @ 15 mls/hr IV .[id number] PRN; Protocol PRN Reason: TITRATE PER MD ORDER Last Titration: 08/31/18 13:24 Dose: 6 mcg/min, 22.5 mls/hr Lactic Acid (Lac-Hydrin 12% Cream (140 G)) 0 ea TOP DAILY [facility] Last Admin: 08/31/18 11:26 Dose: Not Given Levalbuterol HCl (Xopenex) 0.63 mg IH [id number] [facility] Last Admin: 08/31/18 13:29 Dose: 0.63 mg Lorazepam (Ativan) 1 mg IVP Q6H PRN; Protocol PRN Reason: Anxiety Metoprolol Tartrate (Lopressor) 50 mg PO Q8H [facility] Last Admin: 08/31/18 10:03 Dose: Not Given Morphine Sulfate (Morphine Extended Release Tab) 90 mg PO Q12 [facility] Last Admin: 08/31/18 10:50 Dose: Not Given Mupirocin (Bactroban Ointment) 0 gm TOP BID [facility] Last Admin: 08/31/18 11:26 Dose: Not Given Nicotine (Nicoderm Cq) 1 patch TD DAILY [facility] Last Admin: 08/31/18 10:48 Dose: 1 patch Ondansetron HCl (Zofran Inj) 4 mg IVP Q4H PRN PRN Reason: Nausea/Vomiting Pantoprazole Sodium (Protonix Ec Tab) 40 mg PO 0600 [facility] Last Admin: 08/31/18 05:33 Dose: 40 mg Polyethylene Glycol (Miralax) 17 gm PO DAILY [facility] Last Admin: 08/31/18 11:23 Dose: Not Given Results - Vital Signs Recent Vital Signs: Last Vital Signs Temp 99.3 F 08/31/18 12:00 Pulse 95 H 08/31/18 14:00 Resp 18 08/31/18 12:00 BP 115/47 L 08/31/18 12:00 Pulse Ox 85 L 08/31/18 12:00 - Labs Result Diagrams: 08/31/18 07:20 08/31/18 07:20 Labs: Laboratory Results - last 24 hr 08/30/18 08/30/18 08/31/18 12:00 18:23 07:20 WBC 24.2 H D RBC 3.80 Hgb 10.4 L Hct 35.0 L MCV 92.1 MCH 27.4 MCHC 29.7 L RDW 14.5 Plt Count 219 MPV 9.9 Neut % (Auto) 86.1 H Lymph % (Auto) 4.4 L Lamb % (Auto) 3.7 Eos % (Auto) 5.6 H Baso % (Auto) 0.2 Lymph # (Auto) 1.1 L Lamb # (Auto) 0.9 H Eos # (Auto) 1.4 H Baso # (Auto) 0.04 Absolute Neuts (auto) 20.84 H Neutrophils % (Manual) 78 H Band Neutrophils % 9 H Lymphocytes % (Manual) 3 L Monocytes % (Manual) 4 Eosinophils % (Manual) 5 H Metamyelocytes % 1 Platelet Evaluation Normal pCO2 57 H pO2 43.0 L* HCO3 30.8 H ABG pH 7.34 L ABG Total CO2 32.5 H ABG O2 Saturation 85.2 L ABG O2 Content 12.1 L ABG Base Excess 4.0 H ABG Hemoglobin 10.5 L ABG Carboxyhemoglobin 2.2 H POC ABG HHb (Measured) 14.3 H ABG Methemoglobin 1.2 ABG O2 Capacity 14.2 L ABG Potassium Hgb O2 Saturation 82.3 L Sodium Chloride Glucose Lactate FiO2 45.0 Crit Value Called To Vandana penaloza Crit Value Called By Blood Gas Notified Time 1826 Potassium Carbon Dioxide Anion Gap BUN Creatinine Est GFR ( Amer) Est GFR (Non-Af Amer) Random Glucose Calcium Magnesium Total Bilirubin Direct Bilirubin AST ALT Alkaline Phosphatase Lactate Dehydrogenase Total Creatine Kinase Troponin I NT-Pro-B Natriuret Pep Total Protein Albumin Globulin Albumin/Globulin Ratio Procalcitonin 0.61 H Arterial Blood Potassium Fluid Source Fluid Appearance Fluid WBC Fluid RBC Fluid Tot Cell Count Fluid Mononuclear Cell Fl Polymorphonucl Cell Fluid Comment Thoracentesis Fluid pH 08/31/18 08/31/18 08/31/18 07:20 07:20 08:55 WBC RBC Hgb Hct MCV MCH MCHC RDW Plt Count MPV Neut % (Auto) Lymph % (Auto) Lamb % (Auto) Eos % (Auto) Baso % (Auto) Lymph # (Auto) Lamb # (Auto) Eos # (Auto) Baso # (Auto) Absolute Neuts (auto) Neutrophils % (Manual) Band Neutrophils % Lymphocytes % (Manual) Monocytes % (Manual) Eosinophils % (Manual) Metamyelocytes % Platelet Evaluation pCO2 69 H pO2 96.0 HCO3 30.3 H ABG pH 7.25 L ABG Total CO2 32.4 H ABG O2 Saturation 98.8 H ABG O2 Content ABG Base Excess 1.2 ABG Hemoglobin ABG Carboxyhemoglobin POC ABG HHb (Measured) ABG Methemoglobin ABG O2 Capacity ABG Potassium 4.3 Hgb O2 Saturation Sodium 131 L 130.0 L Chloride 97 L 100.0 Glucose 94 Lactate 0.7 FiO2 90.0 Crit Value Called To Crit Value Called By 3769 Blood Gas Notified Time 730 Potassium 4.7 Carbon Dioxide 31 Anion Gap 7 L BUN 25 H Creatinine 1.5 Est GFR ( Amer) 56 Est GFR (Non-Af Amer) 46 Random Glucose 98 Calcium 7.6 L Magnesium 1.7 Total Bilirubin 0.4 Direct Bilirubin 0.4 AST 31 ALT 20 Alkaline Phosphatase 106 Lactate Dehydrogenase Total Creatine Kinase 21 L Troponin I 0.03 D NT-Pro-B Natriuret Pep 57498 H Total Protein 5.7 L Albumin 2.3 L Globulin 3.4 Albumin/Globulin Ratio 0.7 L Procalcitonin Arterial Blood Potassium 4.3 Fluid Source Fluid Appearance Fluid WBC Fluid RBC Fluid Tot Cell Count Fluid Mononuclear Cell Fl Polymorphonucl Cell Fluid Comment Thoracentesis Fluid pH 08/31/18 08/31/18 08/31/18 12:25 12:30 12:45 WBC RBC Hgb Hct MCV MCH MCHC RDW Plt Count MPV Neut % (Auto) Lymph % (Auto) Lamb % (Auto) Eos % (Auto) Baso % (Auto) Lymph # (Auto) Lamb # (Auto) Eos # (Auto) Baso # (Auto) Absolute Neuts (auto) Neutrophils % (Manual) Band Neutrophils % Lymphocytes % (Manual) Monocytes % (Manual) Eosinophils % (Manual) Metamyelocytes % Platelet Evaluation pCO2 65 H pO2 46.0 L HCO3 28.5 H ABG pH 7.25 L ABG Total CO2 30.5 H ABG O2 Saturation 86.8 L ABG O2 Content 11.8 L ABG Base Excess 0.3 ABG Hemoglobin 10.0 L ABG Carboxyhemoglobin 2.4 H POC ABG HHb (Measured) 12.7 H ABG Methemoglobin 1.1 ABG O2 Capacity 13.6 L ABG Potassium Hgb O2 Saturation 83.8 L Sodium Chloride Glucose Lactate FiO2 100.0 Crit Value Called To Jeanne patel Crit Value Called By Wilmar abbott Blood Gas Notified Time 1233 Potassium Carbon Dioxide Anion Gap BUN Creatinine Est GFR ( Amer) Est GFR (Non-Af Amer) Random Glucose Calcium Magnesium Total Bilirubin Direct Bilirubin AST ALT Alkaline Phosphatase Lactate Dehydrogenase 615 Total Creatine Kinase Troponin I NT-Pro-B Natriuret Pep Total Protein Albumin Globulin Albumin/Globulin Ratio Procalcitonin Arterial Blood Potassium Fluid Source Pleural/thoracentesi Fluid Appearance Clear Fluid WBC 283.0 Fluid RBC 35.0 H Fluid Tot Cell Count 100 H Fluid Mononuclear Cell 74.9 H Fl Polymorphonucl Cell 25.1 H Fluid Comment TEST NOT PERFORMED Thoracentesis Fluid pH 08/31/18 12:45 WBC RBC Hgb Hct MCV MCH MCHC RDW Plt Count MPV Neut % (Auto) Lymph % (Auto) Lamb % (Auto) Eos % (Auto) Baso % (Auto) Lymph # (Auto) Lamb # (Auto) Eos # (Auto) Baso # (Auto) Absolute Neuts (auto) Neutrophils % (Manual) Band Neutrophils % Lymphocytes % (Manual) Monocytes % (Manual) Eosinophils % (Manual) Metamyelocytes % Platelet Evaluation pCO2 pO2 HCO3 ABG pH ABG Total CO2 ABG O2 Saturation ABG O2 Content ABG Base Excess ABG Hemoglobin ABG Carboxyhemoglobin POC ABG HHb (Measured) ABG Methemoglobin ABG O2 Capacity ABG Potassium Hgb O2 Saturation Sodium Chloride Glucose Lactate FiO2 Crit Value Called To Crit Value Called By Blood Gas Notified Time Potassium Carbon Dioxide Anion Gap BUN Creatinine Est GFR ( Amer) Est GFR (Non-Af Amer) Random Glucose Calcium Magnesium Total Bilirubin Direct Bilirubin AST ALT Alkaline Phosphatase Lactate Dehydrogenase Total Creatine Kinase Troponin I NT-Pro-B Natriuret Pep Total Protein Albumin Globulin Albumin/Globulin Ratio Procalcitonin Arterial Blood Potassium Fluid Source Fluid Appearance Fluid WBC Fluid RBC Fluid Tot Cell Count Fluid Mononuclear Cell Fl Polymorphonucl Cell Fluid Comment Thoracentesis Fluid pH 7.0 Addendum Addendum: 08/31/18 14:35 MICU attending addendum Patient seen and examined with housestaff. discussed on rounds agree with consult note above with the following add/exceptions 68M with hx of pmhx of chronic back pain and vertebral disc disease who admitted initially for b/l foot pain and back pain. was being tx for foot infection however became progressively hypoxic with worsening bl effusions He is in shock unclear cardiogenic vs septic. The BL nature of his effusions is consistent with cardiogenic however his LV function is not significantly low. With his increasing white count sepsis is possible. Must consider paranmonic effusion as well. Transfer to ICU Insert TLC and start levophed seo culture abx as per ID insert timothy, monitor I/O trial lasix IV thoracentesis via IR on right send off for lights criteria, cyto and micro, ph, cell count f/u cardio recs for chf Bipap for now as it will help blow off CO2 and help keep fluid out of interstitum Rest of care as above in resident note Lynn Angel MD MICU Attending CC TIme : 31 mins
[2018-08-31] MEDS: POLYETHYLENE GLYCOL 3350 17 GM/Dose PACKET PO SCH (11:23)
[2018-08-31] MEDS: Ammonium Lactate 12% Cream (140 g) TOP SCH (11:26)
[2018-08-31] MEDS: Mupirocin 2% Ointment 15 GM TUBE TOP SCH ×3 (11:26→19:05)
[2018-08-31] MEDS: Collagenase 250 Units/gm Ointment(30 gm) TOP SCH (11:26)
--- NOTE | 2018-08-31 11:56 | CP.PCM.PCO ---
Physician Communication Note - Physician Communication Note Physician Communication Note: fever, respiratory acidosis, thoracentesis pending, cont. bipap, antibiotic
--- NOTE | 2018-08-31 12:00 | CP.PCM.PN ---
Subjective - Date & Time of Evaluation Date of Evaluation: 08/31/18 Time of Evaluation: 08:40 - Subjective Subjective: Noted events overnight, patient respiratory distress and is now placed on BiPAP, no fevers overnight, currently lethargic, still on BiPAP. Objective - Vital Signs/Intake and Output Vital Signs (last 24 hours): Temp Pulse Resp BP Pulse Ox 98.6 F 103 H 18 97/46 L 100 08/30/18 06:12 08/30/18 12:18 08/30/18 12:18 08/30/18 12:18 08/30/18 06:12 Intake and Output: 08/30/18 08/30/18 06:59 18:59 Intake Total 660 Output Total 500 Balance 160 - Medications Medications: Current Medications Acetaminophen (Tylenol 325mg Tab) 650 mg PO Q6 PRN PRN Reason: TEMP>=99.5F Last Admin: 08/30/18 01:53 Dose: 650 mg Acetaminophen (Tylenol 650 Mg Supp) 650 mg RC Q6H PRN PRN Reason: TEMP>=99.5F Acetylcysteine (Acetylcysteine 20%) 4 ml IH [id number] [facility] Last Admin: 08/30/18 07:58 Dose: 4 ml Bisacodyl (Dulcolax) 10 mg RC HS PRN PRN Reason: Constipation Collagenase (Santyl) 0 gm TOP DAILY [facility] Last Admin: 08/29/18 19:00 Dose: 1 appl Cyanocobalamin (Vitamin B12 1000 Mcg/Ml Inj) 1,000 mcg IM DAILY [facility] Stop: 09/04/18 10:01 Last Admin: 08/30/18 11:30 Dose: 1,000 mcg Enoxaparin Sodium (Lovenox) 40 mg SC DAILY [facility]; Protocol Ergocalciferol (Drisdol 50,000 Intl Units Cap) 1 cap PO Q7D [facility] Last Admin: 08/26/18 15:49 Dose: 1 cap Folic Acid (Folic Acid) 1 mg PO DAILY [facility] Last Admin: 08/30/18 09:32 Dose: 1 mg Vancomycin HCl 1.25 gm/ Sodium (Chloride) 250 mls @ 167 mls/hr IVPB Q12 [facility]; Protocol Last Admin: 08/30/18 12:53 Dose: 167 mls/hr Meropenem (Merrem Iv 1 Gm Premix) 1 gm in 50 mls @ 100 mls/hr IVPB Q8 [facility]; Protocol Stop: 09/06/18 09:16 Last Admin: 08/30/18 09:31 Dose: 100 mls/hr Lactic Acid (Lac-Hydrin 12% Cream (140 G)) 0 ea TOP DAILY [facility] Last Admin: 08/30/18 11:21 Dose: Not Given Levalbuterol HCl (Xopenex) 0.63 mg IH [id number] [facility] Last Admin: 08/30/18 07:58 Dose: 0.63 mg Lorazepam (Ativan) 1 mg IVP Q6H PRN; Protocol PRN Reason: Anxiety Lorazepam (Ativan) 2 mg IVP ONCE PRN; Protocol PRN Reason: Anxiety Metoprolol Tartrate (Lopressor) 50 mg PO Q8H [facility] Last Admin: 08/30/18 09:17 Dose: 50 mg Morphine Sulfate (Morphine Extended Release Tab) 90 mg PO Q12 [facility] Last Admin: 08/30/18 11:37 Dose: 90 mg Mupirocin (Bactroban Ointment) 0 gm TOP BID [facility] Last Admin: 08/30/18 11:21 Dose: Not Given Nicotine (Nicoderm Cq) 1 patch TD DAILY [facility] Last Admin: 08/30/18 11:36 Dose: 1 patch Ondansetron HCl (Zofran Inj) 4 mg IVP Q4H PRN PRN Reason: Nausea/Vomiting Pantoprazole Sodium (Protonix Ec Tab) 40 mg PO 0600 [facility] Last Admin: 08/30/18 05:33 Dose: 40 mg Polyethylene Glycol (Miralax) 17 gm PO DAILY [facility] - Labs Labs: 08/30/18 07:05 08/30/18 07:05 PT 15.1 SECONDS (9.4-12.5) H 08/23/18 22:20 INR 1.36 08/23/18 22:20 APTT 27.9 Seconds (26.9-38.3) 08/23/18 22:20 - Constitutional Appears: Chronically Ill - Head Exam Head Exam: NORMAL INSPECTION - Respiratory Exam Respiratory Exam: Decreased Breath Sounds - Cardiovascular Exam Cardiovascular Exam: +S1, +S2 - GI/Abdominal Exam GI & Abdominal Exam: Soft. absent: Tenderness - Extremities Exam Additional comments: both feet with dressings in place Assessment and Plan - Assessment and Plan (Free Text) Plan: Assessment consider severe sepsis due to bilateral lower lobe hospital-acquired pneumonia, now with hypoxic respiratory failure Infected left lower extremity wounds, R/O osteomyelitis, grew MRSA chronic back pain vertebral disc disease venous stasis dermatitis Plan continue IV Vancomycin and Merrem (day 2 of combination, started yesterday) - repeat blood cx negative so far, follow up sputum cx, PCT is 0.61 - Vancomycin will also cover the MRSA in the foot awaiting MRI of the foot but patient is critically ill currently follow up further plans of Podiatry will continue to monitor clinically discussed with Dr. Hernandez's team
[2018-08-31] MEDS: Linezolid 600 mg in D5W 300 ml 600 MG/300 ML BAG IVPB SCH ×2 (12:21→22:16)
[2018-08-31 12:33] LABS: ARTERIAL BLOOD GAS HCO3 28.5 mmol/L (21-28); ARTERIAL BLOOD GAS O2 CAPACITY 13.6 mL/dl (16-24); ARTERIAL BLOOD GAS O2 CONTENT 11.8 ML/dl (15-23); ARTERIAL BLOOD GAS O2 SAT 86.8 % (95-98); ARTERIAL BLOOD GAS PCO2 65 mm/Hg (35-45); ARTERIAL BLOOD GAS PH 7.25 (7.35-7.45); ARTERIAL BLOOD GAS TCO2 30.5 mmol.L (22-28)
--- NOTE | 2018-08-31 12:39 | CARD ---
APPROVED REPORT Date of service: 08/31/2018 EXAM: Two-dimensional and M-mode echocardiogram with Doppler and color Doppler. INDICATION MARKED DYSPNEA 2D DIMENSIONS RVDd4.1 (2.9-3.5cm)Left Atrium (2D)3.3 (1.6-4.0cm) IVSd0.8 (0.7-1.1cm)LVDd3.8 (3.9-5.9cm) PWd1.0 (0.7-1.1cm)LVDs2.8 (2.5-4.0cm) FS (%) 26.6 %LVEF (%)52.8 (>50%) M-Mode DIMENSIONS Aortic Root3.10 (2.2-3.7cm)Aortic Cusp Exc.1.50 (1.5-2.0cm) Aortic Valve AoV Peak Sjufkurr162.0cm/Maryuri Peak GR.14mmHg Mitral Valve MV E Aepcikhl324.0cm/sMV A Ewlqnwtr20.8cm/sE/A ratio1.1 TDI E/Lateral E'0.0E/Medial E'0.0 Pulmonary Valve PV Peak Biinjdqg78.7cm/sPV Peak Grad.2mmHg Tricuspid Valve TR Peak Dgbnzowd148gw/sRAP [id number] Peak Gr.52mmHg [id number] LEFT VENTRICLE The left ventricle is normal size. There is normal left ventricular wall thickness. Left ventricle systolic function is borderline. Transmitral Doppler flow pattern is Grade I-abnormal relaxation pattern. RIGHT VENTRICLE The right ventricle is mildly to moderately dilated and moderately hypokinetic ATRIA The left atrium size is normal. The right atrium is moderately dilated. AORTIC VALVE The aortic valve is severely thickened. There is no aortic valvular stenosis. MITRAL VALVE The mitral valve is moderately thickened. Mitral regurgitation is trace. TRICUSPID VALVE There is mild tricuspid regurgitation. There is moderate to severe pulmonary hypertension. GREAT VESSELS The aortic root is normal in size. PERICARDIAL EFFUSION There is large pleural effusion. <Conclusion> The left ventricle is normal size. There is normal left ventricular wall thickness. Left ventricle systolic function is borderline. Transmitral Doppler flow pattern is Grade I-abnormal relaxation pattern. The right ventricle is mildly to moderately dilated and moderately hypokinetic There is mild tricuspid regurgitation. There is moderate to severe pulmonary hypertension. There is large pleural effusion.
[2018-08-31 13:23] LABS: BODY FLUID TYPE PLEURAL/THORACENTESI
[2018-08-31 13:44] LABS: BF GROSS APPEARANCE CLEAR (CLEAR); BODY FLUID TOTAL COUNT 100 (0-0)
--- NOTE | 2018-08-31 13:56 | CP.PCM.PN ---
Subjective - Date & Time of Evaluation Date of Evaluation: 08/31/18 Time of Evaluation: 13:54 - Subjective Subjective: PGY-[address] David ARCEO 6:30am. Called for ICU consult. Objective - Vital Signs/Intake and Output Vital Signs (last 24 hours): Temp Pulse Resp BP Pulse Ox 99.3 F 101 H 18 115/47 L 85 L 08/31/18 12:00 08/31/18 12:00 08/31/18 12:00 08/31/18 12:00 08/31/18 12:00 Intake and Output: 08/31/18 08/31/18 06:59 18:59 Intake Total 1190 50 Output Total 850 Balance 340 50 - Medications Medications: Current Medications Acetaminophen (Tylenol 325mg Tab) 650 mg PO Q6 PRN PRN Reason: TEMP>=99.5F Last Admin: 08/30/18 01:53 Dose: 650 mg Acetaminophen (Tylenol 650 Mg Supp) 650 mg RC Q6H PRN PRN Reason: TEMP>=99.5F Acetylcysteine (Acetylcysteine 20%) 4 ml IH [id number] [facility] Last Admin: 08/31/18 13:29 Dose: 4 ml Bisacodyl (Dulcolax) 10 mg RC HS PRN PRN Reason: Constipation Collagenase (Santyl) 0 gm TOP DAILY [facility] Last Admin: 08/31/18 11:26 Dose: Not Given Cyanocobalamin (Vitamin B12 1000 Mcg/Ml Inj) 1,000 mcg IM DAILY [facility] Stop: 09/04/18 10:01 Last Admin: 08/31/18 10:50 Dose: 1,000 mcg Enoxaparin Sodium (Lovenox) 40 mg SC DAILY [facility]; Protocol Last Admin: 08/31/18 10:49 Dose: 40 mg Ergocalciferol (Drisdol 50,000 Intl Units Cap) 1 cap PO Q7D [facility] Last Admin: 08/26/18 15:49 Dose: 1 cap Folic Acid (Folic Acid) 1 mg PO DAILY [facility] Last Admin: 08/31/18 11:25 Dose: Not Given Furosemide (Lasix) 40 mg IVP Q12H [facility] Last Admin: 08/31/18 11:25 Dose: Not Given Meropenem (Merrem Iv 1 Gm Premix) 1 gm in 50 mls @ 100 mls/hr IVPB Q12 [facility]; Protocol Stop: 09/07/18 10:01 Last Admin: 08/31/18 10:48 Dose: 100 mls/hr Linezolid (Zyvox 600mg/300ml D5w) 600 mg in 300 mls @ 200 mls/hr IVPB Q12 [facility]; Protocol Stop: 09/07/18 10:01 Last Admin: 08/31/18 12:21 Dose: 200 mls/hr NOREPINEPHRINE BIT/0.9 % NACL (Levophed 4 Mg/ 250 Ml Ns Premixed) 4 mg in 250 m ls @ 15 mls/hr IV .[id number] PRN; Protocol PRN Reason: TITRATE PER MD ORDER Last Titration: 08/31/18 13:24 Dose: 6 mcg/min, 22.5 mls/hr Lactic Acid (Lac-Hydrin 12% Cream (140 G)) 0 ea TOP DAILY [facility] Last Admin: 08/31/18 11:26 Dose: Not Given Levalbuterol HCl (Xopenex) 0.63 mg IH [id number] [facility] Last Admin: 08/31/18 13:29 Dose: 0.63 mg Lorazepam (Ativan) 1 mg IVP Q6H PRN; Protocol PRN Reason: Anxiety Metoprolol Tartrate (Lopressor) 50 mg PO Q8H [facility] Last Admin: 08/31/18 10:03 Dose: Not Given Morphine Sulfate (Morphine Extended Release Tab) 90 mg PO Q12 [facility] Last Admin: 08/31/18 10:50 Dose: Not Given Mupirocin (Bactroban Ointment) 0 gm TOP BID [facility] Last Admin: 08/31/18 11:26 Dose: Not Given Nicotine (Nicoderm Cq) 1 patch TD DAILY [facility] Last Admin: 08/31/18 10:48 Dose: 1 patch Ondansetron HCl (Zofran Inj) 4 mg IVP Q4H PRN PRN Reason: Nausea/Vomiting Pantoprazole Sodium (Protonix Ec Tab) 40 mg PO 0600 [facility] Last Admin: 08/31/18 05:33 Dose: 40 mg Polyethylene Glycol (Miralax) 17 gm PO DAILY [facility] Last Admin: 08/31/18 11:23 Dose: Not Given - Labs Labs: 08/31/18 07:20 08/31/18 07:20 PT 15.1 SECONDS (9.4-12.5) H 08/23/18 22:20 INR 1.36 08/23/18 22:20 APTT 27.9 Seconds (26.9-38.3) 08/23/18 22:20 - Constitutional Appears: In Acute Distress - Head Exam Head Exam: ATRAUMATIC, NORMAL INSPECTION, NORMOCEPHALIC - Eye Exam Eye Exam: EOMI, Normal appearance, PERRL. absent: Scleral icterus Pupil Exam: NORMAL ACCOMODATION - ENT Exam ENT Exam: Mucous Membranes Moist - Neck Exam Additional comments: JVD - Respiratory Exam Respiratory Exam: Decreased Breath Sounds, Rhonchi - Cardiovascular Exam Cardiovascular Exam: Tachycardia, REGULAR RHYTHM - GI/Abdominal Exam GI & Abdominal Exam: Soft, Normal Bowel Sounds. absent: Tenderness - Neurological Exam Additional comments: Awake on calling names and light tap on shoulders - Skin Skin Exam: Dry, Warm Assessment and Plan - Assessment and Plan (Free Text) Plan: Mr Dodd, 68M, with PMhx penicillin allergy, chronic back pain and vertebral disc disease admitted for b/l foot cellulitis r/o osteomyelitis and L thigh decubitus. During the hospital stay, he developes hypoxemic hypercapnic respiratory distress requiring high flow and BIPAP. He deveople acute CHF complicated by large b/l pleural effusion and suspected pneumonia with sepsis and high procalcitonin. He refused thoracentesis (08/30) He is upgrades to ICU on 07/10 for AMS with increased lethargy. He received thoracentesis by bedside (08/20 2) 1700cc drained Hypercapnic hypoxemic respiratory distress - ICU management. Bipap. 1700cc via thoracentesis Sepsis due to HAP with b/l foot cellulitis which grew MRSA - Tessy (day 2) - SRINIVAS was only mildly abnormal at rest, possible PAD. - For sacral decubitus stage 3, L thigh, he is on santyl and local wound care. No osteomyelitis - pt refuses MRI to r/o osteomyelitis. - ESR 105 CHF, b/l pleural effusion large, s/p thoracentesis (POD #0) RBBB (questionable new onset vs chronic) with prolong Qtc 496 - Echo: EF 50s. RVSP 62. RV hypokinetic/dilated - Hold beta lisa due to acute heart failure He is anemic with Hb 8.4 on 08/25. He got 1u pRBC, s/p 5 days of Fe IV (today day 11/21) Hyponatermia, mild, asymptomatci, on NS@50. Stop IVF for now due to deSat. For anxiety, he is on ativan PRN For tobacco addition, child welfare counselor for cessation and he is on nicoderm dispo plan: PT recommends MARICRUZ. [ ] Antibiotics. [ ] cytology from pleural effusion s/r/d/w Dr Hernandez
--- NOTE | 2018-08-31 14:03 | CP.PCM.PN ---
<AelxaKishor - Last Filed: 08/31/18 13:58> Subjective - Date & Time of Evaluation Date of Evaluation: 08/31/18 Time of Evaluation: 14:00 - Subjective Subjective: Podiatry consult note for Dr. Lloyd 68 y/o seen and evaluated for infected skin ulcers and b/l foot pain. Patient currently in the ICU due to acute CHF complicated by large b/l pleural effusion and suspected pneumonia with sepsis. Patient currently on BiPAP, patient responding to pain Objective - Vital Signs/Intake and Output Vital Signs (last 24 hours): Temp Pulse Resp BP Pulse Ox 99.3 F 101 H 18 115/47 L 85 L 08/31/18 12:00 08/31/18 12:00 08/31/18 12:00 08/31/18 12:00 08/31/18 12:00 Intake and Output: 08/31/18 08/31/18 06:59 18:59 Intake Total 1190 50 Output Total 850 Balance 340 50 - Medications Medications: Current Medications Acetaminophen (Tylenol 325mg Tab) 650 mg PO Q6 PRN PRN Reason: TEMP>=99.5F Last Admin: 08/30/18 01:53 Dose: 650 mg Acetaminophen (Tylenol 650 Mg Supp) 650 mg RC Q6H PRN PRN Reason: TEMP>=99.5F Acetylcysteine (Acetylcysteine 20%) 4 ml IH [id number] [facility] Last Admin: 08/31/18 13:29 Dose: 4 ml Bisacodyl (Dulcolax) 10 mg RC HS PRN PRN Reason: Constipation Collagenase (Santyl) 0 gm TOP DAILY [facility] Last Admin: 08/31/18 11:26 Dose: Not Given Cyanocobalamin (Vitamin B12 1000 Mcg/Ml Inj) 1,000 mcg IM DAILY [facility] Stop: 09/04/18 10:01 Last Admin: 08/31/18 10:50 Dose: 1,000 mcg Enoxaparin Sodium (Lovenox) 40 mg SC DAILY [facility]; Protocol Last Admin: 08/31/18 10:49 Dose: 40 mg Ergocalciferol (Drisdol 50,000 Intl Units Cap) 1 cap PO Q7D [facility] Last Admin: 08/26/18 15:49 Dose: 1 cap Folic Acid (Folic Acid) 1 mg PO DAILY [facility] Last Admin: 08/31/18 11:25 Dose: Not Given Furosemide (Lasix) 40 mg IVP Q12H [facility] Last Admin: 08/31/18 11:25 Dose: Not Given Meropenem (Merrem Iv 1 Gm Premix) 1 gm in 50 mls @ 100 mls/hr IVPB Q12 [facility]; Protocol Stop: 09/07/18 10:01 Last Admin: 08/31/18 10:48 Dose: 100 mls/hr Linezolid (Zyvox 600mg/300ml D5w) 600 mg in 300 mls @ 200 mls/hr IVPB Q12 [facility]; Protocol Stop: 09/07/18 10:01 Last Admin: 08/31/18 12:21 Dose: 200 mls/hr NOREPINEPHRINE BIT/0.9 % NACL (Levophed 4 Mg/ 250 Ml Ns Premixed) 4 mg in 250 mls @ 15 mls/hr IV .[id number] PRN; Protocol PRN Reason: TITRATE PER MD ORDER Last Titration: 08/31/18 13:24 Dose: 6 mcg/min, 22.5 mls/hr Lactic Acid (Lac-Hydrin 12% Cream (140 G)) 0 ea TOP DAILY [facility] Last Admin: 08/31/18 11:26 Dose: Not Given Levalbuterol HCl (Xopenex) 0.63 mg IH [id number] [facility] Last Admin: 08/31/18 13:29 Dose: 0.63 mg Lorazepam (Ativan) 1 mg IVP Q6H PRN; Protocol PRN Reason: Anxiety Metoprolol Tartrate (Lopressor) 50 mg PO Q8H [facility] Last Admin: 08/31/18 10:03 Dose: Not Given Morphine Sulfate (Morphine Extended Release Tab) 90 mg PO Q12 [facility] Last Admin: 08/31/18 10:50 Dose: Not Given Mupirocin (Bactroban Ointment) 0 gm TOP BID [facility] Last Admin: 08/31/18 11:26 Dose: Not Given Nicotine (Nicoderm Cq) 1 patch TD DAILY [facility] Last Admin: 08/31/18 10:48 Dose: 1 patch Ondansetron HCl (Zofran Inj) 4 mg IVP Q4H PRN PRN Reason: Nausea/Vomiting Pantoprazole Sodium (Protonix Ec Tab) 40 mg PO 0600 [facility] Last Admin: 08/31/18 05:33 Dose: 40 mg Polyethylene Glycol (Miralax) 17 gm PO DAILY [facility] Last Admin: 08/31/18 11:23 Dose: Not Given - Labs Labs: 08/31/18 07:20 08/31/18 07:20 PT 15.1 SECONDS (9.4-12.5) H 08/23/18 22:20 INR 1.36 08/23/18 22:20 APTT 27.9 Seconds (26.9-38.3) 08/23/18 22:20 - Constitutional Appears: Well, Non-toxic, No Acute Distress - Head Exam Head Exam: ATRAUMATIC, NORMOCEPHALIC - Extremities Exam Additional comments: VASC: DP and PT non-palpable, TG warm to warm bilaterally, significant lymphedema noted bilaterally, non-pitting NEURO: grossly intact DERM: LEFT- 0.5 cm X 0.5 cm wound noted to submetatarsal 1 head, significantly improved, fibrotic base, no drainage, no tunneling, tracking or probe to bone, positive malodor, multiple superficial wounds noted to the lateral aspect of the left ankle with 100% granular skin base, no drainage, no probe to bone, no tunneling or tracking, no malodor, chronic skin trophic changes secondary to long standing peripheral vascular disease RIGHT- superficial wound noted to the lateral aspect of the leg at the site of previous chronic skin trophic changes secondary to long standing peripheral vascular disease, wound base 100% granular, minimal serous drainage, mild malodor, no tunneling, tracking or probe to bone ORTHO: pain with range of motion, and on palpation to the feet and legs bilaterally - Neurological Exam Neurological Exam: Alert, Awake, Oriented x3 - Psychiatric Exam Psychiatric exam: Normal Affect, Normal Mood Assessment and Plan - Assessment and Plan (Free Text) Assessment: 68 y/o male patient seen and evaluated for bilateral lower extremity wounds Plan: Patient seen and evaluated with Dr. Lloyd Discussed in detail with Dr. Lloyd Afebrile, absent leukocytosis Bilateral foot x-ray ordered-no osteo on xray Patient refused CT and MRI , states it is too painful Patient to be treated with IV Abx as he has osteomyelitis Obtained Left foot wound cultures: MRSA, Morg morgnanii Wound cleansed with saline and dressed with bactroban, maxorb, adaptic, ABD DSD No podiatric intervention at this time Podiatry will continue to follow patient while in house <Radha Lloydevi - Last Filed: 09/01/18 10:16> Objective - Vital Signs/Intake and Output Vital Signs (last 24 hours): Temp Pulse Resp BP Pulse Ox 98.4 F 73 17 115/53 L 97 08/31/18 18:30 08/31/18 22:00 08/31/18 18:30 09/01/18 09:02 08/31/18 18:30 Intake and Output: 09/01/18 09/01/18 06:59 18:59 Intake Total 1370 250 Output Total 350 Balance 1020 250 - Medications Medications: Current Medications Acetaminophen (Tylenol 325mg Tab) 650 mg PO Q6 PRN PRN Reason: TEMP>=99.5F Last Admin: 08/30/18 01:53 Dose: 650 mg Acetaminophen (Tylenol 650 Mg Supp) 650 mg RC Q6H PRN PRN Reason: TEMP>=99.5F Acetylcysteine (Acetylcysteine 20%) 4 ml IH [id number] [facility] Last Admin: 09/01/18 07:46 Dose: 4 ml Bisacodyl (Dulcolax) 10 mg RC HS PRN PRN Reason: Constipation Collagenase (Santyl) 0 gm TOP DAILY [facility] Last Admin: 08/31/18 11:26 Dose: Not Given Cyanocobalamin (Vitamin B12 1000 Mcg/Ml Inj) 1,000 mcg IM DAILY [facility] Stop: 09/04/18 10:01 Last Admin: 09/01/18 09:01 Dose: 1,000 mcg Enoxaparin Sodium (Lovenox) 40 mg SC DAILY [facility]; Protocol Last Admin: 08/31/18 10:49 Dose: 40 mg Ergocalciferol (Drisdol 50,000 Intl Units Cap) 1 cap PO Q7D [facility] Last Admin: 08/26/18 15:49 Dose: 1 cap Folic Acid (Folic Acid) 1 mg PO DAILY [facility] Last Admin: 09/01/18 09:04 Dose: 1 mg Furosemide (Lasix) 40 mg IVP Q12 [facility] Last Admin: 09/01/18 09:02 Dose: 40 mg Meropenem (Merrem Iv 1 Gm Premix) 1 gm in 50 mls @ 100 mls/hr IVPB Q12 [facility]; Protocol Stop: 09/07/18 10:01 Last Admin: 09/01/18 09:00 Dose: 100 mls/hr Linezolid (Zyvox 600mg/300ml D5w) 600 mg in 300 mls @ 200 mls/hr IVPB Q12 [facility]; Protocol Stop: 09/07/18 10:01 Last Admin: 09/01/18 08:59 Dose: 200 mls/hr NOREPINEPHRINE BIT/0.9 % NACL (Levophed 4 Mg/ 250 Ml Ns Premixed) 4 mg in 250 mls @ 15 mls/hr IV .[id number] PRN; Protocol PRN Reason: TITRATE PER MD ORDER Last Admin: 09/01/18 09:27 Dose: 8 mcg/min, 30 mls/hr Dexmedetomidine HCl (Precedex 400mcg/100ml) 400 mcg in 100 mls @ 3.856 mls/hr IV .Q24H PRN; Protocol PRN Reason: Sedation Last Titration: 09/01/18 06:13 Dose: 0.8 mcg/kg/hr, 15.422 mls/hr Vasopressin 20 units/ Dextrose 101 mls @ 9.09 mls/hr IV .[id number] [facility]; Protocol Last Admin: 09/01/18 05:09 Dose: 9.09 mls/hr Lactic Acid (Lac-Hydrin 12% Cream (140 G)) 0 ea TOP DAILY [facility] Last Admin: 09/01/18 09:03 Dose: 1 applic Levalbuterol HCl (Xopenex) 0.63 mg IH [id number] [facility] Last Admin: 09/01/18 07:46 Dose: 0.63 mg Lorazepam (Ativan) 1 mg IVP Q6H PRN; Protocol PRN Reason: Anxiety Metoprolol Tartrate (Lopressor) 50 mg PO Q8H [facility] Last Admin: 08/31/18 10:03 Dose: Not Given Morphine Sulfate (Morphine Extended Release Tab) 90 mg PO Q12 [facility] Last Admin: 09/01/18 09:25 Dose: Not Given Mupirocin (Bactroban Ointment) 0 gm TOP BID [facility] Last Admin: 09/01/18 09:05 Dose: 1 appl Nicotine (Nicoderm Cq) 1 patch TD DAILY [facility] Last Admin: 09/01/18 09:00 Dose: 1 patch Ondansetron HCl (Zofran Inj) 4 mg IVP Q4H PRN PRN Reason: Nausea/Vomiting Pantoprazole Sodium (Protonix Ec Tab) 40 mg PO 0600 [facility] Last Admin: 09/01/18 05:01 Dose: Not Given Polyethylene Glycol (Miralax) 17 gm PO DAILY [facility] Last Admin: 09/01/18 09:24 Dose: 17 gm - Labs Labs: 09/01/18 05:40 09/01/18 05:40 PT 15.1 SECONDS (9.4-12.5) H 08/23/18 22:20 INR 1.36 08/23/18 22:20 APTT 27.9 Seconds (26.9-38.3) 08/23/18 22:20 Attending/Attestation - Attestation I have personally seen and examined this patient.: Yes I have fully participated in the care of the patient.: Yes I have reviewed all pertinent clinical information, including history, physical exam and plan: Yes
--- NOTE | 2018-08-31 14:49 | PN ---
DATE: 08/31/2018 SUBJECTIVE: The patient was brought down to the ICU from telemetry due to hypoxemia. PHYSICAL EXAMINATION: VITAL SIGNS: Blood pressure is 98/56, heart rates in the 90s. NECK: Negative JVD. LUNGS: Decreased breath sounds bilaterally. HEART: Reveals S1, S2. EXTREMITIES: The previously mentioned cellulitis is noted. LABORATORY DATA: The ProBNP is up to 18,000. BUN and creatinine is 25 and 1.5. The hemoglobin is 10.4, the white count is up to 24,000. IMPRESSION: 1. Acute respiratory distress. 2. Marked hypoxemia. 3. Large pleural effusions. 4. Prerenal azotemia. 5. "Report of mild cardiomyopathy." 6. Cellulitis. 7. Sepsis. 8. Anemia. PLAN: Given these findings, the patient is being diuresed at this time. I have ordered a stat echocardiogram to re-look at his LV function to get a better sense of whether much of his symptoms are cardiac in nature. Jero Salamanca MD
--- NOTE | 2018-08-31 15:40 | PCM.PROC ---
<Augusto Zimmerman - Last Filed: 08/31/18 15:37> Procedures Attestation:: I certify that I have explained the specified Operation(s) or Procedure(s), risks, benefits and reasonable alternatives to the Patient and/or other person responsible. The opportunity was given to ask questions and all questions answered - Central Line Placement Right Internal Jugular Aseptic technique was employed throughout the procedure: Hand Hygiene done prior to procedure, Full sterile barriers (mask, hair cover, sterile gown, sterile gloves), Full body sterile drape, Chloraprep Antiseptic: 30 second prep for IJ or SC sites CVP Time Out Performed: Yes Local Anesthesia Used: Lidocaine 1% Amount of Anesthesia Used (mls): 3 Ultrasound Used for Placement: Yes Central Line Lumen Inserted: triple Central Line Length: 20 cm Post Procedure: Sutured in Place, Good Blood Return, All Ports Aspirated, Flushed, Capped, Sterile Dressing Applied Secured by: Suture Post procedure dressing: Clear vapor permeable, Chlorhexidine disc (Biopatch) Post Procedure X-Ray: Yes Patient Tolerated Procedure: No Complications Immediate Complications: None Additional Comments: Supervised by PGY-[address] Andi Par[address] and Dr. Angel <Lynn Angel - Last Filed: 08/31/18 18:05> Addendum Addendum: 08/31/18 18:03 MICU Attending addendum A time-out was completed verifying correct patient, procedure, site, positioning, . The patient was placed in a dependent position appropriate for central line placement based on the vein to be cannulated. The patients r neck was prepped and draped in sterile fashion. 1% Lidocaine was used to anesthetize the surrounding skin area. A triple lumenc ordis catheter was introduced into th e internal jugular using the Seldinger technique and under ultrasound guidance. The catheter was threaded smoothly over the guide wire and appropriate blood return was obtained. Each lumen of the catheter was evacuated of air and flushed with sterile saline. The catheter was then sutured in place to the skin and a sterile dressing applied. Perfusion to the extremity distal to the point of catheter insertion was checked and found to be adequate. I was present for the procedure Estimated Blood Loss: minimal The patient tolerated the procedure well and there were no complications.
--- NOTE | 2018-08-31 15:46 | US ---
PROCEDURE: Ultrasound guided right thoracentesis. CLINICAL HISTORY: Illness of breath. Bilateral pleural effusions. Needs diagnostic and therapeutic thoracentesis PHYSICIAN(S): Jero Tomlinson MD. TECHNIQUE: The relative risks and indications of the procedure were explained to the patient and consent obtained. The patient was placed in a left decubitus position in bed and sonography of the right chest performed. This revealed a moderate to large rightpleural effusion. A right posterolateral intercostal approach was selected and the area prepped and draped usual sterile fashion. 1% Xylocaine was used to anesthetize the skin and soft tissues. A 7 [place] thoracentesis catheter was trocared into the right pleural cavity and 1700of clear straw-colored fluid aspirated. Specimens were sent to the lab. IMPRESSION: 1. Ultrasound guided right thoracentesis. 1700cc of clear, straw-colored fluid was aspirated. The appropriate labs were sent
[2018-08-31 15:56] LABS: ARTERIAL BLOOD GAS HCO3 27.6 mmol/L (21-28); ARTERIAL BLOOD GAS O2 SAT 97.1 % (95-98); ARTERIAL BLOOD GAS PCO2 66 mm/Hg (35-45); ARTERIAL BLOOD GAS PH 7.23 (7.35-7.45); ARTERIAL BLOOD GAS TCO2 29.6 mmol.L (22-28)
--- NOTE | 2018-08-31 16:02 | RAD ---
Date of service: 08/31/2018 HISTORY: centrail line placement COMPARISON: 08/31/2018 at 9:08 a.m. FINDINGS: LUNGS: Complete opacification of left hemithorax with volume loss and shift of heart and mediastinum towards the left side. This represents interval change from the earlier examination of the same date. Rapid interval change may reflect mucous plugging. PLEURA: No definite pleural effusion. Cannot exclude left-sided pleural effusion. No pneumothorax. CARDIOVASCULAR: There is atherosclerotic calcification of the thoracic aortic arch. Heart size cannot be evaluated on this examination. Right IJ central venous catheter noted. No pulmonary vascular congestion. OSSEOUS STRUCTURES: No significant abnormalities. VISUALIZED UPPER ABDOMEN: Normal. OTHER FINDINGS: None. IMPRESSION: Probable left-sided atelectasis with shift of heart and mediastinum towards the left side. This represents rapid interval change from the earlier examination of the same date. Consider the possibility of mucous plugging.
[2018-08-31] MEDS ORDERED: Etomidate 20 mg/10ml Inj IVP STA (16:34)
[2018-08-31] MEDS ORDERED: Midazolam 2 MG/2 ML VIAL IVP ONE (16:34)
--- NOTE | 2018-08-31 16:57 | PCM.PROC ---
<Chencho Parr - Last Filed: 08/31/18 16:56> Procedures Attestation:: I certify that I have explained the specified Operation(s) or Procedure(s), risks, benefits and reasonable alternatives to the Patient and/or other person responsible. The opportunity was given to ask questions and all questions answered - Intubation Time Out Performed: Yes Sedative: Etomidate (20 mg), Versed (4 mg) Laryngoscope: Glidescope Assist Device Used: Fiber Optic Device ET Tube Size: 7.5 ET Tube Uncuffed: No ET Tube Secured at Depth: 24 cm ET Tube Secured Locarion: Teeth ET Tube Placement Confirmation: Visualized Passing Through Cords, Breath Sounds Equal Bilaterally, No Breath Sounds Over Epigastrum, Confirmation w/Capnometry Patient Tolerated Procedure: No Complications Procedure Immediate Complications: None Additional comments: Supervised by Dr. Lynn Angel MD <Lynn Angel - Last Filed: 08/31/18 18:03> Addendum Addendum: 08/31/18 18:00 Endotracheal Intubation Indication: Respiratory Distress A time-out was completed verifying correct patient, procedure, site, positioning. The patient was placed in a flat position. Sedation was obtained using Versed 4mg and additionally with Etomidate 20mg. The patient was easily ventilated using an ambu bag. The GLIDESCOPE BLADE was used and inserted into the oropharynx at which time there was a Grade 1 view of the vocal cords. A 7.5- d[place]ib[place] endotracheal tube was inserted and visualized going through the vocal cords. The stylette was removed. Colorimetric change was visualized on the CO2 meter. Breath sounds were heard on the right. left side knoiwn to be collapsed from fluid. The endotracheal tube was placed at 24 cm, measured at the teeth. A chest x-ray was ordered to assess for pneumothorax and verify endotrachealtube placement. Estimated Blood Loss: none The patient tolerated the procedure well and there were no complications.
[2018-08-31] MEDS: Dexmedetomidine 400mcg/100mL 400 MCG/100 ML BOTTLE IV PRN (17:04)
--- NOTE | 2018-08-31 17:44 | RAD ---
Date of service: 08/31/2018 HISTORY: s/p endotracheal intubation COMPARISON: August 31, 2018 Time of the most recent examination: 15:28. FINDINGS: LUNGS: Complete opacification left hemithorax. PLEURA: No visible pleural effusion. CARDIOVASCULAR: No atherosclerotic calcification present Venous access catheter in stable, satisfactory position. OSSEOUS STRUCTURES: No significant abnormalities. VISUALIZED UPPER ABDOMEN: Normal. OTHER FINDINGS: Satisfactory position of recently placed endotracheal tube. The tip is within 2 cm of the w[place]. Nasogastric tube passes through the esophagus into the proximal stomach. The last side hole appears at the gastroesophageal junction. Optimal placement would involve advancing the tube at least 5 cm. IMPRESSION: Satisfactory position of recently placed endotracheal tube. Acceptable but sub optimal placement of nasogastric tube which should be advanced. Stable findings in the left hemithorax.
[2018-08-31] MEDS: Vasopressin 20 UNITS in Dextrose 5% In Water 100 ML IV SCH (19:41)
[2018-08-31 21:53] LABS: PH,URINE 5.5 (4.7-8.0); URINE APPEARANCE TURBID (CLEAR); URINE BILIRUBIN NEGATIVE (NEGATIVE); URINE BLOOD NEGATIVE (NEGATIVE); URINE COLOR AMBER (YELLOW); URINE GLUCOSE (UA) NEGATIVE (NEGATIVE); URINE LEUKOCYTE ESTERASE NEGATIVE Leu/uL (NEGATIVE); URINE PROTEIN 30 mg/dL (<30 mg/dL)
[2018-08-31 21:59] LABS: URINE AMORPHOUS SEDIMENT MANY /hpf
[2018-08-31] MEDS: Morphine 15 mg SR Tab PO SCH (22:31)
--- NOTE | 2018-08-31 23:20 | PN ---
DATE: 08/31/2018 LOCATION: The patient is seen in room 262, bed 2. SUBJECTIVE: Overnight nurse's notes were reviewed. I was not called about the patient's condition. During the night, the patient required high flow oxygen. The patient overnight desaturated according to the nurses' notes. I was not informed by the medical records tech of the nurses about the patient's compromised pulmonary and respiratory status. I have contacted my answering service. There was no record of any calls regarding this patient for the last overnight. The patient now today is seen in room 262, bed 1. The patient is lying in the bed, lethargic. Requiring high-flow oxygen at present. The patient is presently on BiPAP. PHYSICAL EXAMINATION: VITAL SIGNS: T-max is 100.4. Telemetry shows sinus tachycardia, heart rate in low 100s to 110. Blood pressures averaging in the last 12-24 hours are 98/56, 112/58, 123/86, 97/46, 96/44. Respirations 20. O2 sats are 88%, 93%, 96%, and 91%. INTAKE AND OUTPUT: Does not appear to be correctly documented. GENERAL: Overnight record shows that patient was short of breath. The patient was desaturated. The patient was placed on high-flow oxygen at 70%. HEENT: Normocephalic and atraumatic. Positive BiPAP. Pinkish pale conjunctivae. Anicteric sclerae. No oropharyngeal lesion. CARDIOVASCULAR: S1 and S2, tachycardic rhythm. LUNGS: Decreased breath sound at the bases. Positive upper lung field rhonchi bilaterally and decreased breath sounds noted bilaterally. ABDOMEN: Soft. Positive bowel sounds. No palpable hepatosplenomegaly. GENITALIA: Male. RECTAL: Deferred. EXTREMITIES: Chronic skin changes of the lower extremity, 1+ pitting edema, positive boot. MUSCULOSKELETAL: Body mass index of 26.6. Gait examination, bedridden. DIAGNOSTICS: From 08/31/2018; WBC 24.2, hemoglobin and hematocrit 10.4 and 35, platelets 219. Granulocytes 86% bands 9. ABG this morning shows pH 7.25, pCO2 of 69, pO2 is 96, bicarb 30 on 90% FiO2. Sodium 131, potassium 4.7, chloride 97, CO2 of 31, anion gap 7, BUN 25, creatinine 1.5, GFR 46, glucose 98, calcium 7.6, magnesium 1.7. LFTs are normal. BNP has now gone up to almost 19,000 from 5320. Procalcitonin level is high at 0.61. Influenza is negative. HIV, hepatitis, RPR is negative. Blood and urine cultures from 08/29/2018 are negative. The patient received 1 unit of PRBC. Chest x-ray was done on 08/30/2018, which shows increasing infiltrate and pneumonia. EKG shows sinus tachycardia, baseline artifact, right bundle-branch block, bifascicular block. Overnight reports were reviewed. There was no evaluation was noted by the medical records tech or the house physician. IMPRESSION: 1. Acute versus [id number] hypoxic hypercarbic respiratory failure, high-flow oxygen dependent. 2. Respiratory acidosis with hypercarbia and carbon dioxide narcosis with lethargy. 3. Sepsis with leukocytosis, granulocytosis, and bandemia. 4. Elevated erythrocyte sedimentation rate of 110. 5. Elevated D-dimer, etiology undetermined. 6. Possible impending respiratory failure. 7. Hyponatremia. 8. Prerenal kidney injury. 9. Hypocalcemia. 10. Possible acute systolic congestive heart failure with an elevated ProBNP. 11. Mild protein malnutrition and hypoalbuminemia. 12. . 13. Possible iron-deficiency anemia. 14. Urine drug screen positive for cannabinoids and opioids . 15. Morganella morganii methicillin-resistant Staphylococcus aureus, Providencia rettgeri, Corynebacterium, Proteus penneri bilateral lower extremity venous stasis cellulitis and dermatitis. 16. Sacral decubitus ulceration and bilateral posterior thigh skin ulceration. 17. Status post packed red blood cell transfusion x1. 18. Multilobar bilateral pneumonia. 19. Large bilateral pleural effusion. 20. Severe deconditioning. 21. Poor compliance and noncompliance. 22. Bibasilar pneumonia and consolidation. 23. Bibasilar atelectasis. 23. Cardiomegaly. 24. Thoracic aortic calcified atheromatous plaques. 25. Osteopenia with diffuse spondylosis. 26. 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 27. Questionable cardiomyopathy. 28. Mildly impaired left ventricular systolic function with moderate inferoseptal hypokinesis. 29. Moderate mitral annular calcification with mild mitral regurgitation. 30. Moderate tricuspid regurgitation with right ventricular systolic pressure of 32 mmHg 31. Large left pleural effusion. 32. Moderate tricuspid regurgitation. 33. History of narcotic-dependent pain syndrome. 34. Gluteal decubitus ulceration. 35. High-grade fever. 36. Dystrophic, elongated toenails. 37. Sepsis with bilateral lower lobe multilobar healthcare-associated pneumonia. 38. Gait dysfunction. PLAN: At this time, the patient is to be transferred to ICU. The patient has been ordered stat CPK, troponins, serial CMP, LFT, magnesium, phosphorus has been ordered, repeat CBC ordered, blood cultures ordered. Consultation with Surgery, Infectious Disease, Cardiology, Interventional Radiology, Gastroenterology, Hematology/Oncology, Interventional Radiology, and Podiatry. CURRENT MEDICATIONS: Mucomyst nebulizer 20% 4 mL with Xopenex nebulizer 0.63 every 6 hours, Ativan 1 mg IV every 6 hours p.r.n., Bactroban cream, Drisdol 50,000 units weekly, folic acid 1 mg daily, Lac-Hydrin, Lasix increased to 40 IV daily, Lopressor 50 mg every 8 hours, Lovenox 40 subcu daily, meropenem 1 g IV every 12 hours, MiraLax 17 g daily, Protonix 40 mg, Santyl daily, Tylenol suppository p.o. every six hours p.r.n., vitamin B12 1000 mcg IM daily, Zofran 4 mg IV every four hours p.r.n. The patient is on Zyvox 600 mg IV every 12 hours. Chest x-ray daily ordered. Repeat EKG ordered. The patient is on high-flow oxygen at 50%. The patient is in specialty mattress. Overall, the patient's prognosis is guarded to poor. The patient will be transferred to intensive care unit. The patient's further management will be dependent upon the patient's clinical condition, hemodynamic status, and as per the patient's response to therapeutic intervention, as per the patient's diagnostic test results, and as per recommendation by all the physicians involved in the care of the patient. The patient's overall prognosis is guarded to poor. Condition is critical. Dictated and electronically signed, not read. Carlos Hernandez MD [facility] # [id number]
[2018-09-01] MEDS: Levalbuterol 0.63 MG/3 ML Inhal Soln UD IH SCH ×4 (02:30→20:30)
[2018-09-01] MEDS: Acetylcysteine 20% Inhal Soln (4ml) IH SCH ×4 (02:30→20:30)
[2018-09-01] MEDS: Dexmedetomidine 400mcg/100mL 400 MCG/100 ML BOTTLE IV PRN ×3 (04:58→18:59)
[2018-09-01] MEDS: NOREPINEPHRINE BIT/0.9 % NACL 4 MG/250 ML BAG IV PRN ×2 (05:01→09:27)
[2018-09-01] MEDS: Pantoprazole 40 mg EC Tab PO SCH (05:01)
[2018-09-01] MEDS: Vasopressin 20 UNITS in Dextrose 5% In Water 100 ML IV SCH (05:09)
[2018-09-01 05:21] LABS: ARTERIAL BLOOD GAS HCO3 24.9 mmol/L (21-28); ARTERIAL BLOOD GAS HEMOGLOBIN 10.1 g/dL (11.7-17.4); ARTERIAL BLOOD GAS O2 CAPACITY 13.9 mL/dl (16-24); ARTERIAL BLOOD GAS O2 CONTENT 13.7 ML/dl (15-23); ARTERIAL BLOOD GAS O2 SAT 98.4 % (95-98); ARTERIAL BLOOD GAS PCO2 53 mm/Hg (35-45); ARTERIAL BLOOD GAS PH 7.28 (7.35-7.45); ARTERIAL BLOOD GAS TCO2 26.5 mmol.L (22-28)
[2018-09-01 06:47] LABS: BASO # 0.03 K/mm3 (0.0-2.0); BASO % 0.1 % (0.0-3.0); EOS # 1.6 (0.0-0.7); EOS % 6.7 % (1.5-5.0); HEMOGLOBIN 10.7 g/dL (14.0-18.0); LYMPH # 1.2 (1.2-3.4); LYMPH % 5.2 % (22.0-35.0); MEAN CORPUSCULAR HEMOGLOBIN 26.9 pg (25.0-35.0); MEAN CORPUSCULAR HGB CONC 29.6 g/dl (31.0-37.0); MEAN PLATELET VOLUME 9.9 fl (7.0-11.0); MONO # 0.9 (0.1-0.6); MONO % 3.9 % (1.0-6.0); RBC 3.98 10^6/uL (3.5-6.1); RED CELL DISTRIBUTION WIDTH 14.6 % (11.5-14.5); WHITE BLOOD COUNT 23.6 10^3/uL (4.5-11.0)
[2018-09-01 07:08] LABS: B-TYPE NATRIURETIC PEPTIDE 17800 pg/mL (0-450); TROPONIN I < 0.01 ng/mL
[2018-09-01 07:34] LABS: ALB/GLOB RATIO 0.6 (1.1-1.8); ALBUMIN 2.1 g/dL (3.0-4.8); ALT/SGPT 10 U/L (7-56); AST/SGOT 28 U/L (17-59); BILIRUBIN,DIRECT 0.4 mg/dL (0.0-0.4); BLOOD UREA NITROGEN 37 mg/dL (7-21); CALCIUM 7.8 mg/dL (8.4-10.5); GFR NON-AFRICAN AMERICAN 31
--- NOTE | 2018-09-01 08:39 | CP.CCUPN ---
<Augusto Zimmerman - Last Filed: 09/01/18 12:45> CCU Subjective - Physician Review Subjective (Free Text): 09/01/18 12:01 Augusto Zimmerman, PGY-1 ICU Progress Note for Dr. Velázquez: Pt was seen and examined this AM by ICU team. Overnight the pt was intubated and a central line was placed in order to start pressor support. Pt is intubated and sedated, therefore unable to asses ROS. CCU Objective - Vital Signs / Intake & Output Vital Signs (Last 4 hours): Vital Signs BP 09/01/18 05:09 106/57 L Intake and Output (Last 8hrs): Intake & Output 08/31/18 09/01/18 09/01/18 22:59 06:59 14:59 Intake Total 534 1370 Output Total 40 350 Balance 494 1020 Intake: IV 534 1370 Left Forearm 1000 Right Internal Jugular 334 Output: Urine 40 350 Urine, Voided 40 350 Other: # Bowel Movements 0 - Physical Exam Head: Positive for: Atraumatic, Normocephalic Pupils: Positive for: PERRL Conjunctiva: Positive for: Normal Mouth: Positive for: Moist Mucous Membranes, Other (ETT secured) Respiratory/Chest: Positive for: Decreased Breath Sounds, Rales (present in the L lung, only anterior lung feilds could be assessed due to pt being intubated.), Other (Pt is intubated). Negative for: Respiratory Distress, Accessory Muscle Use Cardiovascular: Positive for: Normal S1, S2, Tachycardic. Negative for: Murmurs Abdomen: Negative for: Tenderness, Distention, Peritoneal Signs Back: Positive for: Decubitus Ulcer (Sacral) Upper Extremity: Positive for: Normal Inspection. Negative for: Cyanosis, Edema Lower Extremity: Positive for: Normal Inspection, Normal ROM, Other (2 large skin decubiti on the posterior thighs bilaterally, both infected with surrounding erythema) Neurological: Positive for: Other (Pt is sedated due to intubation) Skin: Positive for: Warm, Dry, Normal Color. Negative for: Rashes Psychiatric: Positive for: Other (sedated due to intubation) - Medications Active Medications: Active Medications Generic Name Dose Route Start Last Admin Trade Name Freq PRN Reason Stop Dose Admin Acetaminophen 650 mg 08/24/18 00:04 08/30/18 01:53 Tylenol 325mg Tab PO 650 mg Q6 PRN Administration TEMP>=99.5F Acetaminophen 650 mg 08/24/18 00:04 Tylenol 650 Mg Supp RC Q6H PRN TEMP>=99.5F Acetylcysteine 4 ml 08/24/18 09:00 09/01/18 07:46 Acetylcysteine 20% IH 4 ml [id number] CASSY Administration Bisacodyl 10 mg 08/28/18 12:39 Dulcolax RC HS PRN Constipation Collagenase 0 gm 08/25/18 10:00 08/31/18 11:26 Santyl TOP Not Given DAILY CASSY Cyanocobalamin 1,000 mcg 08/26/18 15:00 08/31/18 10:50 Vitamin B12 1000 Mcg/Ml Inj IM 09/04/18 10:01 1,000 mcg DAILY CASSY Administration Enoxaparin Sodium 40 mg 08/31/18 10:00 08/31/18 10:49 Lovenox SC 40 mg DAILY CASSY Administration Protocol Ergocalciferol 1 cap 08/26/18 15:00 08/26/18 15:49 Drisdol 50,000 Intl Units Cap PO 1 cap Q7D CASSY Administration Folic Acid 1 mg 08/26/18 15:00 08/31/18 11:25 Folic Acid PO Not Given DAILY CASSY Furosemide 40 mg 09/01/18 10:00 Lasix IVP Q12 CASSY Meropenem 1 gm in 50 mls @ 100 mls/hr 08/31/18 10:00 08/31/18 22:16 Merrem Iv 1 Gm Premix IVPB 09/07/18 10:01 100 mls/hr Q12 CASSY Administration Protocol Linezolid 600 mg in 300 mls @ 200 mls/hr 08/31/18 10:00 08/31/18 22:16 Zyvox 600mg/300ml D5w IVPB 09/07/18 10:01 200 mls/hr Q12 CASSY Administration Protocol NOREPINEPHRINE BIT/0.9 % NACL 4 mg in 250 mls @ 15 mls/hr 08/31/18 09:26 09/01/18 05:01 Levophed 4 Mg/ 250 Ml Ns Premixed IV 8 mcg/min .[id number] PRN 30 mls/hr TITRATE PER MD ORDER Administration Protocol 4 MCG/MIN Dexmedetomidine HCl 400 mcg in 100 mls @ 3.856 mls/hr 08/31/18 16:50 09/01/18 06:13 Precedex 400mcg/100ml IV 0.8 mcg/kg/hr .Q24H PRN 15.422 mls/hr Sedation Titration Protocol 0.2 MCG/KG/HR Vasopressin 20 units/ Dextrose 101 mls @ 9.09 mls/hr 08/31/18 19:00 09/01/18 05:09 IV 9.09 mls/hr .[id number] CASSY Administration Protocol 0.03 U/MIN Lactic Acid 0 ea 08/28/18 11:45 08/31/18 11:26 Lac-Hydrin 12% Cream (140 G) TOP Not Given DAILY CASSY Levalbuterol HCl 0.63 mg 08/24/18 09:00 09/01/18 07:46 Xopenex IH 0.63 mg [id number] CASSY Administration Lorazepam 1 mg 08/25/18 21:21 Ativan IVP Q6H PRN Anxiety Protocol Metoprolol Tartrate 50 mg 08/30/18 09:00 08/31/18 10:03 Lopressor PO Not Given Q8H CASSY Morphine Sulfate 90 mg 08/31/18 21:45 08/31/18 22:31 Morphine Extended Release Tab PO 90 mg Q12 CASSY Administration Mupirocin 0 gm 08/25/18 10:00 08/31/18 19:05 Bactroban Ointment TOP 1 appl BID CASSY Administration Nicotine 1 patch 08/24/18 10:00 08/31/18 10:48 Nicoderm Cq TD 1 patch DAILY CASSY Administration Ondansetron HCl 4 mg 08/24/18 00:04 Zofran Inj IVP Q4H PRN Nausea/Vomiting Pantoprazole Sodium 40 mg 08/24/18 06:00 09/01/18 05:01 Protonix Ec Tab PO Not Given 0600 CASSY Polyethylene Glycol 17 gm 08/31/18 10:00 08/31/18 11:23 Miralax PO Not Given DAILY CASSY - Patient Studies Lab Studies: Microbiology Studies 08/28/18 22:33 Blood Culture - Preliminary Blood NO GROWTH AFTER 3 DAYS 08/28/18 22:00 Blood Culture - Preliminary Blood NO GROWTH AFTER 3 DAYS 08/30/18 12:50 Blood Culture - Preliminary Blood-Venous NO GROWTH AFTER 24 HOURS 08/30/18 11:20 Blood Culture - Preliminary Blood-Venous NO GROWTH AFTER 24 HOURS 08/30/18 12:00 Gram Stain - Final Sputum Induced Sputum Culture - Preliminary NORMAL ORAL AJIT Lab Studies 09/01/18 09/01/18 09/01/18 Range/Units 05:40 05:40 05:00 WBC 23.6 H (4.5-11.0) 10^3/uL RBC 3.98 (3.5-6.1) 10^6/uL Hgb 10.7 L (14.0-18.0) g/dL Hct 36.2 L (42.0-52.0) % MCV 91.0 (80.0-105.0) fl MCH 26.9 (25.0-35.0) pg MCHC 29.6 L (31.0-37.0) g/dl RDW 14.6 H (11.5-14.5) % Plt Count 174 (120.0-450.0) 10^3/uL MPV 9.9 (7.0-11.0) fl Neut % (Auto) 84.1 H (50.0-68.0) % Lymph % (Auto) 5.2 L (22.0-35.0) % [place] % (Auto) 3.9 (1.0-6.0) % Eos % (Auto) 6.7 H (1.5-5.0) % Baso % (Auto) 0.1 (0.0-3.0) % Lymph # (Auto) 1.2 (1.2-3.4) [place] # (Auto) 0.9 H (0.1-0.6) Eos # (Auto) 1.6 H (0.0-0.7) Baso # (Auto) 0.03 (0.0-2.0) K/mm3 Absolute Neuts (auto) 19.84 H (1.4-6.5) pCO2 53 H (35-45) mm/Hg pO2 87.0 (80-100) mm/Hg HCO3 24.9 (21-28) mmol/L ABG pH 7.28 L (7.35-7.45) ABG Total CO2 26.5 (22-28) mmol.L ABG O2 Saturation 98.4 H (95-98) % ABG O2 Content 13.7 L (15-23) ML/dl ABG Base Excess -2.2 L (-2.0-3.0) mmol/L ABG Hemoglobin 10.1 L (11.7-17.4) g/dL ABG Carboxyhemoglobin 1.7 H (0.5-1.5) % POC ABG HHb (Measured) 1.6 (0-5) % ABG Methemoglobin 1.3 (0.0-3.0) % ABG O2 Capacity 13.9 L (16-24) mL/dl ABG Potassium (3.6-5.2) mmol/L Hgb O2 Saturation 95.4 (95.0-98.0) % Sodium 130 L (132-148) mmol/L Chloride 97 L (98-107) mmol/L Glucose (75-110) mg/dl Lactate (0.7-2.1) mmol/L FiO2 100.0 % Inspiratory BiPAP Crit Value Called To Crit Value Called By Blood Gas Notified Time Potassium 4.6 (3.6-5.0) mmol/L Carbon Dioxide 28 (21-33) mmol/L Anion Gap 10 (10-20) BUN 37 H (7-21) mg/dL Creatinine 2.1 H (0.8-1.5) mg/dl Est GFR ( Amer) 38 Est GFR (Non-Af Amer) 31 Random Glucose 115 H (70-110) mg/dL Calcium 7.8 L (8.4-10.5) mg/dL Magnesium 1.8 (1.7-2.2) mg/dL Total Bilirubin 0.5 (0.2-1.3) mg/dL Direct Bilirubin 0.4 (0.0-0.4) mg/dL AST 28 (17-59) U/L ALT 10 (7-56) U/L Alkaline Phosphatase 93 (38-126) U/L Lactate Dehydrogenase (333-699) U/L Total Creatine Kinase < 20 L (35-230) U/L Troponin I < 0.01 D ng/mL NT-Pro-B Natriuret Pep 96106 H (0-450) pg/mL Total Protein 5.5 L (5.8-8.3) g/dL Albumin 2.1 L (3.0-4.8) g/dL Globulin 3.3 gm/dL Albumin/Globulin Ratio 0.6 L (1.1-1.8) Arterial Blood Potassium (3.6-5.2) mmol/L Urine Color (YELLOW) Urine Appearance (CLEAR) Urine pH (4.7-8.0) Ur Specific [place] (1.005-1.035) Urine Protein (<30 mg/dL) mg/dL Urine Glucose (UA) (NEGATIVE) mg/dL Urine Ketones (NEGATIVE) mg/dL Urine Blood (NEGATIVE) Urine Nitrate (NEGATIVE) Urine Bilirubin (NEGATIVE) Urine Urobilinogen (<1 E.U./dL) E.U./dL Ur Leukocyte Esterase (NEGATIVE) [place]/uL Urine RBC Urine WBC (0-6) /hpf Ur Epithelial Cells (0-5) /hpf Amorphous Sediment (NONE) /hpf Fluid Source Fluid Appearance (CLEAR) Fluid WBC (0.0-300.0) /uL Fluid RBC (0.0-0.0) /uL Fluid Tot Cell Count (0-0) Fluid Mononuclear Cell (0-0) % Fl Polymorphonucl Cell (0-0) % Fluid Comment Thoracentesis Fluid pH 08/31/18 08/31/18 08/31/18 Range/Units 21:48 15:40 12:45 WBC (4.5-11.0) 10^3/uL RBC (3.5-6.1) 10^6/uL Hgb (14.0-18.0) g/dL Hct (42.0-52.0) % MCV (80.0-105.0) fl MCH (25.0-35.0) pg MCHC (31.0-37.0) g/dl RDW (11.5-14.5) % Plt Count (120.0-450.0) 10^3/uL MPV (7.0-11.0) fl Neut % (Auto) (50.0-68.0) % Lymph % (Auto) (22.0-35.0) % [place] % (Auto) (1.0-6.0) % Eos % (Auto) (1.5-5.0) % Baso % (Auto) (0.0-3.0) % Lymph # (Auto) (1.2-3.4) [place] # (Auto) (0.1-0.6) Eos # (Auto) (0.0-0.7) Baso # (Auto) (0.0-2.0) K/mm3 Absolute Neuts (auto) (1.4-6.5) pCO2 66 H (35-45) mm/Hg pO2 74.0 L (80-100) mm/Hg HCO3 27.6 (21-28) mmol/L ABG pH 7.23 L (7.35-7.45) ABG Total CO2 29.6 H (22-28) mmol.L ABG O2 Saturation 97.1 (95-98) % ABG O2 Content (15-23) ML/dl ABG Base Excess -1.5 (-2.0-3.0) mmol/L ABG Hemoglobin (11.7-17.4) g/dL ABG Carboxyhemoglobin (0.5-1.5) % POC ABG HHb (Measured) (0-5) % ABG Methemoglobin (0.0-3.0) % ABG O2 Capacity (16-24) mL/dl ABG Potassium 3.9 (3.6-5.2) mmol/L Hgb O2 Saturation (95.0-98.0) % Sodium 132.0 (132-148) mmol/L Chloride 101.0 (98-107) mmol/L Glucose 101 (75-110) mg/dl Lactate 0.9 (0.7-2.1) mmol/L FiO2 100.0 % Inspiratory BiPAP 20 Crit Value Called To Jeanne patel Crit Value Called By Wilmar abbott Blood Gas Notified Time 1556 Potassium (3.6-5.0) mmol/L Carbon Dioxide (21-33) mmol/L Anion Gap (10-20) BUN (7-21) mg/dL Creatinine (0.8-1.5) mg/dl Est GFR ( Amer) Est GFR (Non-Af Amer) Random Glucose (70-110) mg/dL Calcium (8.4-10.5) mg/dL Magnesium (1.7-2.2) mg/dL Total Bilirubin (0.2-1.3) mg/dL Direct Bilirubin (0.0-0.4) mg/dL AST (17-59) U/L ALT (7-56) U/L Alkaline Phosphatase (38-126) U/L Lactate Dehydrogenase (333-699) U/L Total Creatine Kinase (35-230) U/L Troponin I ng/mL NT-Pro-B Natriuret Pep (0-450) pg/mL Total Protein (5.8-8.3) g/dL Albumin (3.0-4.8) g/dL Globulin gm/dL Albumin/Globulin Ratio (1.1-1.8) Arterial Blood Potassium 3.9 (3.6-5.2) mmol/L Urine Color [place] (YELLOW) Urine Appearance Turbid (CLEAR) Urine pH 5.5 (4.7-8.0) Ur Specific [place] >= 1.030 (1.005-1.035) Urine Protein 30 H (<30 mg/dL) mg/dL Urine Glucose (UA) Negative (NEGATIVE) mg/dL Urine Ketones Trace H (NEGATIVE) mg/dL Urine Blood Negative (NEGATIVE) Urine Nitrate Negative (NEGATIVE) Urine Bilirubin Negative (NEGATIVE) Urine Urobilinogen 1.0 H (<1 E.U./dL) E.U./dL Ur Leukocyte Esterase Negative (NEGATIVE) [place]/uL Urine RBC TEST NOT PERFORMED Urine WBC 2 - 5 (0-6) /hpf Ur Epithelial Cells 4 - 5 (0-5) /hpf Amorphous Sediment Many (NONE) /hpf Fluid Source Fluid Appearance (CLEAR) Fluid WBC (0.0-300.0) /uL Fluid RBC (0.0-0.0) /uL Fluid Tot Cell Count (0-0) Fluid Mononuclear Cell (0-0) % Fl Polymorphonucl Cell (0-0) % Fluid Comment Thoracentesis Fluid pH 7.0 08/31/18 08/31/18 08/31/18 Range/Units 12:45 12:30 12:25 WBC (4.5-11.0) 10^3/uL RBC (3.5-6.1) 10^6/uL Hgb (14.0-18.0) g/dL Hct (42.0-52.0) % MCV (80.0-105.0) fl MCH (25.0-35.0) pg MCHC (31.0-37.0) g/dl RDW (11.5-14.5) % Plt Count (120.0-450.0) 10^3/uL MPV (7.0-11.0) fl Neut % (Auto) (50.0-68.0) % Lymph % (Auto) (22.0-35.0) % [place] % (Auto) (1.0-6.0) % Eos % (Auto) (1.5-5.0) % Baso % (Auto) (0.0-3.0) % Lymph # (Auto) (1.2-3.4) [place] # (Auto) (0.1-0.6) Eos # (Auto) (0.0-0.7) Baso # (Auto) (0.0-2.0) K/mm3 Absolute Neuts (auto) (1.4-6.5) pCO2 65 H (35-45) mm/Hg pO2 46.0 L (80-100) mm/Hg HCO3 28.5 H (21-28) mmol/L ABG pH 7.25 L (7.35-7.45) ABG Total CO2 30.5 H (22-28) mmol.L ABG O2 Saturation 86.8 L (95-98) % ABG O2 Content 11.8 L (15-23) ML/dl ABG Base Excess 0.3 (-2.0-3.0) mmol/L ABG Hemoglobin 10.0 L (11.7-17.4) g/dL ABG Carboxyhemoglobin 2.4 H (0.5-1.5) % POC ABG HHb (Measured) 12.7 H (0-5) % ABG Methemoglobin 1.1 (0.0-3.0) % ABG O2 Capacity 13.6 L (16-24) mL/dl ABG Potassium (3.6-5.2) mmol/L Hgb O2 Saturation 83.8 L (95.0-98.0) % Sodium (132-148) mmol/L Chloride (98-107) mmol/L Glucose (75-110) mg/dl Lactate (0.7-2.1) mmol/L FiO2 100.0 % Inspiratory BiPAP Crit Value Called To Jeanne patel Crit Value Called By R gagalac Blood Gas Notified Time 1233 Potassium (3.6-5.0) mmol/L Carbon Dioxide (21-33) mmol/L Anion Gap (10-20) BUN (7-21) mg/dL Creatinine (0.8-1.5) mg/dl Est GFR ( Amer) Est GFR (Non-Af Amer) Random Glucose (70-110) mg/dL Calcium (8.4-10.5) mg/dL Magnesium (1.7-2.2) mg/dL Total Bilirubin (0.2-1.3) mg/dL Direct Bilirubin (0.0-0.4) mg/dL AST (17-59) U/L ALT (7-56) U/L Alkaline Phosphatase (38-126) U/L Lactate Dehydrogenase 615 (333-699) U/L Total Creatine Kinase (35-230) U/L Troponin I ng/mL NT-Pro-B Natriuret Pep (0-450) pg/mL Total Protein (5.8-8.3) g/dL Albumin (3.0-4.8) g/dL Globulin gm/dL Albumin/Globulin Ratio (1.1-1.8) Arterial Blood Potassium (3.6-5.2) mmol/L Urine Color (YELLOW) Urine Appearance (CLEAR) Urine pH (4.7-8.0) Ur Specific [place] (1.005-1.035) Urine Protein (<30 mg/dL) mg/dL Urine Glucose (UA) (NEGATIVE) mg/dL Urine Ketones (NEGATIVE) mg/dL Urine Blood (NEGATIVE) Urine Nitrate (NEGATIVE) Urine Bilirubin (NEGATIVE) Urine Urobilinogen (<1 E.U./dL) E.U./dL Ur Leukocyte Esterase (NEGATIVE) [place]/uL Urine RBC Urine WBC (0-6) /hpf Ur Epithelial Cells (0-5) /hpf Amorphous Sediment (NONE) /hpf Fluid Source Pleural/thoracentesi Fluid Appearance Clear (CLEAR) Fluid WBC 283.0 (0.0-300.0) /uL Fluid RBC 35.0 H (0.0-0.0) /uL Fluid Tot Cell Count 100 H (0-0) Fluid Mononuclear Cell 74.9 H (0-0) % Fl Polymorphonucl Cell 25.1 H (0-0) % Fluid Comment TEST NOT PERFORMED Thoracentesis Fluid pH 02/12/19 Range/Units 08:55 WBC (4.5-11.0) 10^3/uL RBC (3.5-6.1) 10^6/uL Hgb (14.0-18.0) g/dL Hct (42.0-52.0) % MCV (80.0-105.0) fl MCH (25.0-35.0) pg MCHC (31.0-37.0) g/dl RDW (11.5-14.5) % Plt Count (120.0-450.0) 10^3/uL MPV (7.0-11.0) fl Neut % (Auto) (50.0-68.0) % Lymph % (Auto) (22.0-35.0) % [place] % (Auto) (1.0-6.0) % Eos % (Auto) (1.5-5.0) % Baso % (Auto) (0.0-3.0) % Lymph # (Auto) (1.2-3.4) [place] # (Auto) (0.1-0.6) Eos # (Auto) (0.0-0.7) Baso # (Auto) (0.0-2.0) K/mm3 Absolute Neuts (auto) (1.4-6.5) pCO2 (35-45) mm/Hg pO2 (80-100) mm/Hg HCO3 (21-28) mmol/L ABG pH (7.35-7.45) ABG Total CO2 (22-28) mmol.L ABG O2 Saturation (95-98) % ABG O2 Content (15-23) ML/dl ABG Base Excess (-2.0-3.0) mmol/L ABG Hemoglobin (11.7-17.4) g/dL ABG Carboxyhemoglobin (0.5-1.5) % POC ABG HHb (Measured) (0-5) % ABG Methemoglobin (0.0-3.0) % ABG O2 Capacity (16-24) mL/dl ABG Potassium (3.6-5.2) mmol/L Hgb O2 Saturation (95.0-98.0) % Sodium (132-148) mmol/L Chloride (98-107) mmol/L Glucose (75-110) mg/dl Lactate (0.7-2.1) mmol/L FiO2 % Inspiratory BiPAP Crit Value Called To Crit Value Called By Blood Gas Notified Time Potassium (3.6-5.0) mmol/L Carbon Dioxide (21-33) mmol/L Anion Gap (10-20) BUN (7-21) mg/dL Creatinine (0.8-1.5) mg/dl Est GFR ( Amer) Est GFR (Non-Af Amer) Random Glucose (70-110) mg/dL Calcium (8.4-10.5) mg/dL Magnesium (1.7-2.2) mg/dL Total Bilirubin (0.2-1.3) mg/dL Direct Bilirubin (0.0-0.4) mg/dL AST (17-59) U/L ALT (7-56) U/L Alkaline Phosphatase (38-126) U/L Lactate Dehydrogenase (333-699) U/L Total Creatine Kinase 21 L (35-230) U/L Troponin I 0.03 D ng/mL NT-Pro-B Natriuret Pep (0-450) pg/mL Total Protein (5.8-8.3) g/dL Albumin (3.0-4.8) g/dL Globulin gm/dL Albumin/Globulin Ratio (1.1-1.8) Arterial Blood Potassium (3.6-5.2) mmol/L Urine Color (YELLOW) Urine Appearance (CLEAR) Urine pH (4.7-8.0) Ur Specific [place] (1.005-1.035) Urine Protein (<30 mg/dL) mg/dL Urine Glucose (UA) (NEGATIVE) mg/dL Urine Ketones (NEGATIVE) mg/dL Urine Blood (NEGATIVE) Urine Nitrate (NEGATIVE) Urine Bilirubin (NEGATIVE) Urine Urobilinogen (<1 E.U./dL) E.U./dL Ur Leukocyte Esterase (NEGATIVE) [place]/uL Urine RBC Urine WBC (0-6) /hpf Ur Epithelial Cells (0-5) /hpf Amorphous Sediment (NONE) /hpf Fluid Source Fluid Appearance (CLEAR) Fluid WBC (0.0-300.0) /uL Fluid RBC (0.0-0.0) /uL Fluid Tot Cell Count (0-0) Fluid Mononuclear Cell (0-0) % Fl Polymorphonucl Cell (0-0) % Fluid Comment Thoracentesis Fluid pH Laboratory Results - last 24 hr 08/31/18 08/31/18 08/31/18 08:55 12:25 12:30 WBC RBC Hgb Hct MCV MCH MCHC RDW Plt Count MPV Neut % (Auto) Lymph % (Auto) [place] % (Auto) Eos % (Auto) Baso % (Auto) Lymph # (Auto) [place] # (Auto) Eos # (Auto) Baso # (Auto) Absolute Neuts (auto) pCO2 65 H pO2 46.0 L HCO3 28.5 H ABG pH 7.25 L ABG Total CO2 30.5 H ABG O2 Saturation 86.8 L ABG O2 Content 11.8 L ABG Base Excess 0.3 ABG Hemoglobin 10.0 L ABG Carboxyhemoglobin 2.4 H POC ABG HHb (Measured) 12.7 H ABG Methemoglobin 1.1 ABG O2 Capacity 13.6 L ABG Potassium Hgb O2 Saturation 83.8 L Sodium Chloride Glucose Lactate FiO2 100.0 Inspiratory BiPAP Crit Value Called To Jeanne patel Crit Value Called By Wilmar abbott Blood Gas Notified Time 1233 Potassium Carbon Dioxide Anion Gap BUN Creatinine Est GFR ( Amer) Est GFR (Non-Af Amer) Random Glucose Calcium Magnesium Total Bilirubin Direct Bilirubin AST ALT Alkaline Phosphatase Lactate Dehydrogenase 615 Total Creatine Kinase 21 L Troponin I 0.03 D NT-Pro-B Natriuret Pep Total Protein Albumin Globulin Albumin/Globulin Ratio Arterial Blood Potassium Urine Color Urine Appearance Urine pH Ur Specific [place] Urine Protein Urine Glucose (UA) Urine Ketones Urine Blood Urine Nitrate Urine Bilirubin Urine Urobilinogen Ur Leukocyte Esterase Urine RBC Urine WBC Ur Epithelial Cells Amorphous Sediment Fluid Source Fluid Appearance Fluid WBC Fluid RBC Fluid Tot Cell Count Fluid Mononuclear Cell Fl Polymorphonucl Cell Fluid Comment Thoracentesis Fluid pH 08/31/18 08/31/18 08/31/18 12:45 12:45 15:40 WBC RBC Hgb Hct MCV MCH MCHC RDW Plt Count MPV Neut % (Auto) Lymph % (Auto) [place] % (Auto) Eos % (Auto) Baso % (Auto) Lymph # (Auto) [place] # (Auto) Eos # (Auto) Baso # (Auto) Absolute Neuts (auto) pCO2 66 H pO2 74.0 L HCO3 27.6 ABG pH 7.23 L ABG Total CO2 29.6 H ABG O2 Saturation 97.1 ABG O2 Content ABG Base Excess -1.5 ABG Hemoglobin ABG Carboxyhemoglobin POC ABG HHb (Measured) ABG Methemoglobin ABG O2 Capacity ABG Potassium 3.9 Hgb O2 Saturation Sodium 132.0 Chloride 101.0 Glucose 101 Lactate 0.9 FiO2 100.0 Inspiratory BiPAP 20 Crit Value Called To Jeanne patel Crit Value Called By Wilmar abbott Blood Gas Notified Time 1556 Potassium Carbon Dioxide Anion Gap BUN Creatinine Est GFR ( Amer) Est GFR (Non-Af Amer) Random Glucose Calcium Magnesium Total Bilirubin Direct Bilirubin AST ALT Alkaline Phosphatase Lactate Dehydrogenase Total Creatine Kinase Troponin I NT-Pro-B Natriuret Pep Total Protein Albumin Globulin Albumin/Globulin Ratio Arterial Blood Potassium 3.9 Urine Color Urine Appearance Urine pH Ur Specific [place] Urine Protein Urine Glucose (UA) Urine Ketones Urine Blood Urine Nitrate Urine Bilirubin Urine Urobilinogen Ur Leukocyte Esterase Urine RBC Urine WBC Ur Epithelial Cells Amorphous Sediment Fluid Source Pleural/thoracentesi Fluid Appearance Clear Fluid WBC 283.0 Fluid RBC 35.0 H Fluid Tot Cell Count 100 H Fluid Mononuclear Cell 74.9 H Fl Polymorphonucl Cell 25.1 H Fluid Comment TEST NOT PERFORMED Thoracentesis Fluid pH 7.0 08/31/18 09/01/18 09/01/18 21:48 05:00 05:40 WBC 23.6 H RBC 3.98 Hgb 10.7 L Hct 36.2 L MCV 91.0 MCH 26.9 MCHC 29.6 L RDW 14.6 H Plt Count 174 MPV 9.9 Neut % (Auto) 84.1 H Lymph % (Auto) 5.2 L [place] % (Auto) 3.9 Eos % (Auto) 6.7 H Baso % (Auto) 0.1 Lymph # (Auto) 1.2 [place] # (Auto) 0.9 H Eos # (Auto) 1.6 H Baso # (Auto) 0.03 Absolute Neuts (auto) 19.84 H pCO2 53 H pO2 87.0 HCO3 24.9 ABG pH 7.28 L ABG Total CO2 26.5 ABG O2 Saturation 98.4 H ABG O2 Content 13.7 L ABG Base Excess -2.2 L ABG Hemoglobin 10.1 L ABG Carboxyhemoglobin 1.7 H POC ABG HHb (Measured) 1.6 ABG Methemoglobin 1.3 ABG O2 Capacity 13.9 L ABG Potassium Hgb O2 Saturation 95.4 Sodium Chloride Glucose Lactate FiO2 100.0 Inspiratory BiPAP Crit Value Called To Crit Value Called By Blood Gas Notified Time Potassium Carbon Dioxide Anion Gap BUN Creatinine Est GFR ( Amer) Est GFR (Non-Af Amer) Random Glucose Calcium Magnesium Total Bilirubin Direct Bilirubin AST ALT Alkaline Phosphatase Lactate Dehydrogenase Total Creatine Kinase Troponin I NT-Pro-B Natriuret Pep Total Protein Albumin Globulin Albumin/Globulin Ratio Arterial Blood Potassium Urine Color Sheryl Urine Appearance Turbid Urine pH 5.5 Ur Specific [place] >= 1.030 Urine Protein 30 H Urine Glucose (UA) Negative Urine Ketones Trace H Urine Blood Negative Urine Nitrate Negative Urine Bilirubin Negative Urine Urobilinogen 1.0 H Ur Leukocyte Esterase Negative Urine RBC TEST NOT PERFORMED Urine WBC 2 - 5 Ur Epithelial Cells 4 - 5 Amorphous Sediment Many Fluid Source Fluid Appearance Fluid WBC Fluid RBC Fluid Tot Cell Count Fluid Mononuclear Cell Fl Polymorphonucl Cell Fluid Comment Thoracentesis Fluid pH 09/01/18 05:40 WBC RBC Hgb Hct MCV MCH MCHC RDW Plt Count MPV Neut % (Auto) Lymph % (Auto) [place] % (Auto) Eos % (Auto) Baso % (Auto) Lymph # (Auto) [place] # (Auto) Eos # (Auto) Baso # (Auto) Absolute Neuts (auto) pCO2 pO2 HCO3 ABG pH ABG Total CO2 ABG O2 Saturation ABG O2 Content ABG Base Excess ABG Hemoglobin ABG Carboxyhemoglobin POC ABG HHb (Measured) ABG Methemoglobin ABG O2 Capacity ABG Potassium Hgb O2 Saturation Sodium 130 L Chloride 97 L Glucose Lactate FiO2 Inspiratory BiPAP Crit Value Called To Crit Value Called By Blood Gas Notified Time Potassium 4.6 Carbon Dioxide 28 Anion Gap 10 BUN 37 H Creatinine 2.1 H Est GFR ( Amer) 38 Est GFR (Non-Af Amer) 31 Random Glucose 115 H Calcium 7.8 L Magnesium 1.8 Total Bilirubin 0.5 Direct Bilirubin 0.4 AST 28 ALT 10 Alkaline Phosphatase 93 Lactate Dehydrogenase Total Creatine Kinase < 20 L Troponin I < 0.01 D NT-Pro-B Natriuret Pep 57158 H Total Protein 5.5 L Albumin 2.1 L Globulin 3.3 Albumin/Globulin Ratio 0.6 L Arterial Blood Potassium Urine Color Urine Appearance Urine pH Ur Specific [place] Urine Protein Urine Glucose (UA) Urine Ketones Urine Blood Urine Nitrate Urine Bilirubin Urine Urobilinogen Ur Leukocyte Esterase Urine RBC Urine WBC Ur Epithelial Cells Amorphous Sediment Fluid Source Fluid Appearance Fluid WBC Fluid RBC Fluid Tot Cell Count Fluid Mononuclear Cell Fl Polymorphonucl Cell Fluid Comment Thoracentesis Fluid pH Radiology Impressions: Radiology Impressions Chest X-Ray 08/31/18 08:54 IMPRESSION: No active disease. Thoracentesis Ultrasound 08/31/18 10:15 IMPRESSION: 1. Ultrasound guided right thoracentesis. 1700cc of clear, straw-colored fluid was aspirated. The appropriate labs were sent Chest X-Ray 08/31/18 14:54 IMPRESSION: Probable left-sided atelectasis with shift of heart and mediastinum towards the left side. This represents rapid interval change from the earlier examination of the same date. Consider the possibility of mucous plugging. Chest X-Ray 08/31/18 16:51 IMPRESSION: Satisfactory position of recently placed endotracheal tube. Acceptable but sub optimal placement of nasogastric tube which should be advanced. Stable findings in the left hemithorax. EKG/Cardiology Studies: Cardiology / EKG Studies 09/01/18 07:00 ELECTROCARDIOGRAM DAILY Comment: Reason For Exam: CHF 09/02/18 07:00 ELECTROCARDIOGRAM DAILY Comment: Reason For Exam: CHF 09/03/18 07:00 ELECTROCARDIOGRAM DAILY Comment: Reason For Exam: CHF Critical Care Progress Note - Nutrition Nutrition: Nutrition Category Date Time Status Regular Diet [DIET] Diets 08/23/18 Breakfast Ordered Assessment/Plan - Assessment and Plan (Free Text) Assessment: Pt is a 68 yo M with pmhx of chronic back pain and vertebral disc disease who presented to the [facility] [place] for complaints of b/l foot pain and back pain. ICU is consulted for management of pts acute hypercapnic respiratory failure and AMS. Pt had R thoracentesis done yesterday, pt was also intubated due to continued resp acidosis even on 100% FiO2 on Bipap. Pressors were started on pt yesterday. Plan: Neuro: - Pt is intubated at this time and sedated. Pulm: Acute hypercapnic resp failure leading to respiratory acidosis w/ chronic incomplete compensatory resp alkalosis: - Pt was intubated due to persistent resp acidosis. - Fentanyl drip added on to precedex for sedation. - Likely 2/2 CHF exacerbation vs PNA unlikely PE due to r/o by CTA - CXR shows L lung white out with return of some effusion on the R - read by me - Echo showed [place] [address] - Will give pt lasix 40 IVP - [place] - Strict I/Os - Daily weight PNA vs CHF: - Procal elevated - CXR and echo resulted noted above - ID on board, recs appreciated: Merrem q8 and vanc day 2 of combination tx - Repeat blood, urine and sputum cultures Cardio: Shock: Septic vs cardiogenic: - Pressors started due to hypotension. Cont levophed. Vasopressin also started overnight. - Will try lasix for diuresis for suspected cardiogenic shock - Thoracentesis done: 1700ml out - Started on stress dose steroids - Solu-cortef 50q6 - Pt started on dobutamine drip starting at 2.5 - Will cont to monitor - Goal is MAP > 65 Nephro: Pre-renal Azotemia: - BUN/Cr = 37/2.1 - UA, urine sodium, urine cl, urine osms, urine protein and serum osms ordered - Will cont to monitor - Will give lasix, now due to fluid overload and respiratory compromise but will limit other nephrotoxic agents - Nephro consulted GI: - NPO - Protonix MSK: B/l foot cellulitis - MRSA (+): - Pt on multipodus boots - ID on board: IV Vanc day 8 - Pt is refusing MRI for osteo r/o Stage 3 Sacral decub ulcer: - Pt refuses MRI - Santyl and local wound care - Cont Vanc per ID recs DVT PPx: Lovenox 40 Case seen and discussed with Dr. Melania Zimmerman, PGY-1 <Joce Velázquez - Last Filed: 09/01/18 13:49> CCU Objective - Vital Signs / Intake & Output Vital Signs (Last 4 hours): Vital Signs Temp Pulse Resp BP Pulse Ox 09/01/18 12:00 97.3 F L 72 99/49 L 99 09/01/18 11:50 97.5 F L 69 100 09/01/18 11:45 97.5 F L 69 106/51 L 100 09/01/18 11:40 97.7 F 68 100 09/01/18 11:30 97.7 F 67 113/58 L 99 09/01/18 11:20 97.9 F 68 99 09/01/18 11:15 97.9 F 67 104/51 L 98 09/01/18 11:10 98.1 F 74 97 09/01/18 11:00 98.1 F 67 113/54 L 98 09/01/18 10:50 98.1 F 66 99 09/01/18 10:45 98.1 F 65 123/60 99 09/01/18 10:40 98.1 F 66 99 09/01/18 10:30 98.1 F 67 124/54 L 99 09/01/18 10:20 98.1 F 69 99 09/01/18 10:15 98.1 F 70 112/50 L 100 09/01/18 10:10 98.1 F 70 100 09/01/18 10:08 98.1 F 71 20 100 09/01/18 10:00 98.1 F 70 110/44 L 100 09/01/18 09:50 98.2 F 70 100 09/01/18 09:45 98.2 F 73 111/49 L 100 Intake and Output (Last 8hrs): Intake & Output 08/31/18 09/01/18 09/01/18 22:59 06:59 14:59 Intake Total 534 1370 371 Output Total 40 350 Balance 494 1020 371 Intake: IV 534 1370 371 Left Forearm 1000 Right Internal Jugular 334 Output: Urine 40 350 Urine, Voided 40 350 Other: # Bowel Movements 0 - Medications Active Medications: Active Medications Generic Name Dose Route Start Last Admin Trade Name Freq PRN Reason Stop Dose Admin Acetaminophen 650 mg 08/24/18 00:04 08/30/18 01:53 Tylenol 325mg Tab PO 650 mg Q6 PRN Administration TEMP>=99.5F Acetaminophen 650 mg 08/24/18 00:04 Tylenol 650 Mg Supp RC Q6H PRN TEMP>=99.5F Acetylcysteine 4 ml 08/24/18 09:00 09/01/18 13:08 Acetylcysteine 20% IH 4 ml [id number] CASSY Administration Bisacodyl 10 mg 08/28/18 12:39 Dulcolax RC HS PRN Constipation Collagenase 0 gm 08/25/18 10:00 08/31/18 11:26 Santyl TOP Not Given DAILY CASSY Cyanocobalamin 1,000 mcg 08/26/18 15:00 09/01/18 09:01 Vitamin B12 1000 Mcg/Ml Inj IM 09/04/18 10:01 1,000 mcg DAILY CASSY Administration Enoxaparin Sodium 40 mg 08/31/18 10:00 08/31/18 10:49 Lovenox SC 40 mg DAILY CASSY Administration Protocol Ergocalciferol 1 cap 08/26/18 15:00 08/26/18 15:49 Drisdol 50,000 Intl Units Cap PO 1 cap Q7D CASSY Administration Folic Acid 1 mg 08/26/18 15:00 09/01/18 09:04 Folic Acid PO 1 mg DAILY CASSY Administration Furosemide 40 mg 09/01/18 10:00 09/01/18 09:02 Lasix IVP 40 mg Q12 CASSY Administration Hydrocortisone Sodium Succinate 50 mg 09/01/18 12:00 Solu-Cortef IVP Q6 CASSY Meropenem 1 gm in 50 mls @ 100 mls/hr 08/31/18 10:00 09/01/18 09:00 Merrem Iv 1 Gm Premix IVPB 09/07/18 10:01 100 mls/hr Q12 CASSY Administration Protocol Linezolid 600 mg in 300 mls @ 200 mls/hr 08/31/18 10:00 09/01/18 08:59 Zyvox 600mg/300ml D5w IVPB 09/07/18 10:01 200 mls/hr Q12 CASSY Administration Protocol NOREPINEPHRINE BIT/0.9 % NACL 4 mg in 250 mls @ 15 mls/hr 08/31/18 09:26 09/01/18 11:00 Levophed 4 Mg/ 250 Ml Ns Premixed IV 2 mcg/min .[id number] PRN 7.5 mls/hr TITRATE PER MD ORDER Titration Protocol 4 MCG/MIN Dexmedetomidine HCl 400 mcg in 100 mls @ 3.856 mls/hr 08/31/18 16:50 09/01/18 11:47 Precedex 400mcg/100ml IV 0.8 mcg/kg/hr .Q24H PRN 15.422 mls/hr Sedation Administration Protocol 0.2 MCG/KG/HR Vasopressin 20 units/ Dextrose 101 mls @ 9.09 mls/hr 08/31/18 19:00 09/01/18 05:09 IV 9.09 mls/hr .[id number] CASSY Administration Protocol 0.03 U/MIN Fentanyl Citrate 1,000 mcg in 100 mls @ 5 mls/hr 09/01/18 10:23 Fentanyl Citrate/Sodium Chloride 1 Mg/100 Ml IV .Q20H PRN TITRATE PER MD ORDER Protocol 50 MCG/HR Dobutamine HCl/Dextrose 500 mg in 250 mls @ 5.783 mls/hr 09/01/18 11:23 09/01/18 11:45 Dobutamine/Dextrose 5% 500mg/250ml IV 2.5 mcg/kg/min .Q24H PRN 5.783 mls/hr TITRATE PER PROTOCOL Administration Protocol 2.5 MCG/KG/MIN Lactic Acid 0 ea 08/28/18 11:45 09/01/18 09:03 Lac-Hydrin 12% Cream (140 G) TOP 1 applic DAILY CASSY Administration Levalbuterol HCl 0.63 mg 08/24/18 09:00 09/01/18 13:08 Xopenex IH 0.63 mg [id number] CASSY Administration Lorazepam 1 mg 08/25/18 21:21 Ativan IVP Q6H PRN Anxiety Protocol Metoprolol Tartrate 50 mg 08/30/18 09:00 08/31/18 10:03 Lopressor PO Not Given Q8H CASSY Mupirocin 0 gm 08/25/18 10:00 09/01/18 09:05 Bactroban Ointment TOP 1 appl BID CASSY Administration Nicotine 1 patch 08/24/18 10:00 09/01/18 09:00 Nicoderm Cq TD 1 patch DAILY CASSY Administration Ondansetron HCl 4 mg 08/24/18 00:04 Zofran Inj IVP Q4H PRN Nausea/Vomiting Pantoprazole Sodium 40 mg 08/24/18 06:00 09/01/18 05:01 Protonix Ec Tab PO Not Given 0600 CASSY Pantoprazole Sodium 40 mg 09/02/18 10:00 Protonix Inj IVP DAILY CASSY Polyethylene Glycol 17 gm 08/31/18 10:00 09/01/18 09:24 Miralax PO 17 gm DAILY CASSY Administration Sodium Hypochlorite 0 ml 09/01/18 13:00 Dakins Solution 0.25% TOP DAILY CASSY - Patient Studies Lab Studies: Microbiology Studies 08/30/18 12:50 Blood Culture - Preliminary Blood-Venous NO GROWTH AFTER 48 HOURS 08/30/18 11:20 Blood Culture - Preliminary Blood-Venous NO GROWTH AFTER 48 HOURS 08/30/18 12:00 Gram Stain - Final Sputum Induced Sputum Culture - Final NORMAL ORAL AJIT 08/28/18 22:33 Blood Culture - Preliminary Blood NO GROWTH AFTER 3 DAYS 08/28/18 22:00 Blood Culture - Preliminary Blood NO GROWTH AFTER 3 DAYS Lab Studies 09/01/18 09/01/18 09/01/18 Range/Units 05:40 05:40 05:00 WBC 23.6 H (4.5-11.0) 10^3/uL RBC 3.98 (3.5-6.1) 10^6/uL Hgb 10.7 L (14.0-18.0) g/dL Hct 36.2 L (42.0-52.0) % MCV 91.0 (80.0-105.0) fl MCH 26.9 (25.0-35.0) pg MCHC 29.6 L (31.0-37.0) g/dl RDW 14.6 H (11.5-14.5) % Plt Count 174 (120.0-450.0) 10^3/uL MPV 9.9 (7.0-11.0) fl Neut % (Auto) 84.1 H (50.0-68.0) % Lymph % (Auto) 5.2 L (22.0-35.0) % [place] % (Auto) 3.9 (1.0-6.0) % Eos % (Auto) 6.7 H (1.5-5.0) % Baso % (Auto) 0.1 (0.0-3.0) % Lymph # (Auto) 1.2 (1.2-3.4) [place] # (Auto) 0.9 H (0.1-0.6) Eos # (Auto) 1.6 H (0.0-0.7) Baso # (Auto) 0.03 (0.0-2.0) K/mm3 Absolute Neuts (auto) 19.84 H (1.4-6.5) pCO2 53 H (35-45) mm/Hg pO2 87.0 (80-100) mm/Hg HCO3 24.9 (21-28) mmol/L ABG pH 7.28 L (7.35-7.45) ABG Total CO2 26.5 (22-28) mmol.L ABG O2 Saturation 98.4 H (95-98) % ABG O2 Content 13.7 L (15-23) ML/dl ABG Base Excess -2.2 L (-2.0-3.0) mmol/L ABG Hemoglobin 10.1 L (11.7-17.4) g/dL ABG Carboxyhemoglobin 1.7 H (0.5-1.5) % POC ABG HHb (Measured) 1.6 (0-5) % ABG Methemoglobin 1.3 (0.0-3.0) % ABG O2 Capacity 13.9 L (16-24) mL/dl ABG Potassium (3.6-5.2) mmol/L Hgb O2 Saturation 95.4 (95.0-98.0) % Sodium 130 L (132-148) mmol/L Chloride 97 L (98-107) mmol/L Glucose (75-110) mg/dl Lactate (0.7-2.1) mmol/L FiO2 100.0 % Inspiratory BiPAP Crit Value Called To Crit Value Called By Blood Gas Notified Time Potassium 4.6 (3.6-5.0) mmol/L Carbon Dioxide 28 (21-33) mmol/L Anion Gap 10 (10-20) BUN 37 H (7-21) mg/dL Creatinine 2.1 H (0.8-1.5) mg/dl Est GFR ( Amer) 38 Est GFR (Non-Af Amer) 31 Random Glucose 115 H (70-110) mg/dL Calcium 7.8 L (8.4-10.5) mg/dL Magnesium 1.8 (1.7-2.2) mg/dL Total Bilirubin 0.5 (0.2-1.3) mg/dL Direct Bilirubin 0.4 (0.0-0.4) mg/dL AST 28 (17-59) U/L ALT 10 (7-56) U/L Alkaline Phosphatase 93 (38-126) U/L Total Creatine Kinase < 20 L (35-230) U/L Troponin I < 0.01 D ng/mL NT-Pro-B Natriuret Pep 51534 H (0-450) pg/mL Total Protein 5.5 L (5.8-8.3) g/dL Albumin 2.1 L (3.0-4.8) g/dL Globulin 3.3 gm/dL Albumin/Globulin Ratio 0.6 L (1.1-1.8) Arterial Blood Potassium (3.6-5.2) mmol/L Urine Color (YELLOW) Urine Appearance (CLEAR) Urine pH (4.7-8.0) Ur Specific [place] (1.005-1.035) Urine Protein (<30 mg/dL) mg/dL Urine Glucose (UA) (NEGATIVE) mg/dL Urine Ketones (NEGATIVE) mg/dL Urine Blood (NEGATIVE) Urine Nitrate (NEGATIVE) Urine Bilirubin (NEGATIVE) Urine Urobilinogen (<1 E.U./dL) E.U./dL Ur Leukocyte Esterase (NEGATIVE) [place]/uL Urine RBC Urine WBC (0-6) /hpf Ur Epithelial Cells (0-5) /hpf Amorphous Sediment (NONE) /hpf Fluid Appearance (CLEAR) Fluid WBC (0.0-300.0) /uL Fluid RBC (0.0-0.0) /uL Fluid Tot Cell Count (0-0) Fluid Mononuclear Cell (0-0) % Fl Polymorphonucl Cell (0-0) % Fluid Comment Thoracentesis Fluid pH 08/31/18 08/31/18 08/31/18 Range/Units 21:48 15:40 12:45 WBC (4.5-11.0) 10^3/uL RBC (3.5-6.1) 10^6/uL Hgb (14.0-18.0) g/dL Hct (42.0-52.0) % MCV (80.0-105.0) fl MCH (25.0-35.0) pg MCHC (31.0-37.0) g/dl RDW (11.5-14.5) % Plt Count (120.0-450.0) 10^3/uL MPV (7.0-11.0) fl Neut % (Auto) (50.0-68.0) % Lymph % (Auto) (22.0-35.0) % [place] % (Auto) (1.0-6.0) % Eos % (Auto) (1.5-5.0) % Baso % (Auto) (0.0-3.0) % Lymph # (Auto) (1.2-3.4) [place] # (Auto) (0.1-0.6) Eos # (Auto) (0.0-0.7) Baso # (Auto) (0.0-2.0) K/mm3 Absolute Neuts (auto) (1.4-6.5) pCO2 66 H (35-45) mm/Hg pO2 74.0 L (80-100) mm/Hg HCO3 27.6 (21-28) mmol/L ABG pH 7.23 L (7.35-7.45) ABG Total CO2 29.6 H (22-28) mmol.L ABG O2 Saturation 97.1 (95-98) % ABG O2 Content (15-23) ML/dl ABG Base Excess -1.5 (-2.0-3.0) mmol/L ABG Hemoglobin (11.7-17.4) g/dL ABG Carboxyhemoglobin (0.5-1.5) % POC ABG HHb (Measured) (0-5) % ABG Methemoglobin (0.0-3.0) % ABG O2 Capacity (16-24) mL/dl ABG Potassium 3.9 (3.6-5.2) mmol/L Hgb O2 Saturation (95.0-98.0) % Sodium 132.0 (132-148) mmol/L Chloride 101.0 (98-107) mmol/L Glucose 101 (75-110) mg/dl Lactate 0.9 (0.7-2.1) mmol/L FiO2 100.0 % Inspiratory BiPAP 20 Crit Value Called To Jeanne patel Crit Value Called By Wilmar abbott Blood Gas Notified Time 1556 Potassium (3.6-5.0) mmol/L Carbon Dioxide (21-33) mmol/L Anion Gap (10-20) BUN (7-21) mg/dL Creatinine (0.8-1.5) mg/dl Est GFR ( Amer) Est GFR (Non-Af Amer) Random Glucose (70-110) mg/dL Calcium (8.4-10.5) mg/dL Magnesium (1.7-2.2) mg/dL Total Bilirubin (0.2-1.3) mg/dL Direct Bilirubin (0.0-0.4) mg/dL AST (17-59) U/L ALT (7-56) U/L Alkaline Phosphatase (38-126) U/L Total Creatine Kinase (35-230) U/L Troponin I ng/mL NT-Pro-B Natriuret Pep (0-450) pg/mL Total Protein (5.8-8.3) g/dL Albumin (3.0-4.8) g/dL Globulin gm/dL Albumin/Globulin Ratio (1.1-1.8) Arterial Blood Potassium 3.9 (3.6-5.2) mmol/L Urine Color Sheryl (YELLOW) Urine Appearance Turbid (CLEAR) Urine pH 5.5 (4.7-8.0) Ur Specific [place] >= 1.030 (1.005-1.035) Urine Protein 30 H (<30 mg/dL) mg/dL Urine Glucose (UA) Negative (NEGATIVE) mg/dL Urine Ketones Trace H (NEGATIVE) mg/dL Urine Blood Negative (NEGATIVE) Urine Nitrate Negative (NEGATIVE) Urine Bilirubin Negative (NEGATIVE) Urine Urobilinogen 1.0 H (<1 E.U./dL) E.U./dL Ur Leukocyte Esterase Negative (NEGATIVE) [place]/uL Urine RBC TEST NOT PERFORMED Urine WBC 2 - 5 (0-6) /hpf Ur Epithelial Cells 4 - 5 (0-5) /hpf Amorphous Sediment Many (NONE) /hpf Fluid Appearance (CLEAR) Fluid WBC (0.0-300.0) /uL Fluid RBC (0.0-0.0) /uL Fluid Tot Cell Count (0-0) Fluid Mononuclear Cell (0-0) % Fl Polymorphonucl Cell (0-0) % Fluid Comment Thoracentesis Fluid pH 7.0 08/31/18 Range/Units 12:45 WBC (4.5-11.0) 10^3/uL RBC (3.5-6.1) 10^6/uL Hgb (14.0-18.0) g/dL Hct (42.0-52.0) % MCV (80.0-105.0) fl MCH (25.0-35.0) pg MCHC (31.0-37.0) g/dl RDW (11.5-14.5) % Plt Count (120.0-450.0) 10^3/uL MPV (7.0-11.0) fl Neut % (Auto) (50.0-68.0) % Lymph % (Auto) (22.0-35.0) % [place] % (Auto) (1.0-6.0) % Eos % (Auto) (1.5-5.0) % Baso % (Auto) (0.0-3.0) % Lymph # (Auto) (1.2-3.4) [place] # (Auto) (0.1-0.6) Eos # (Auto) (0.0-0.7) Baso # (Auto) (0.0-2.0) K/mm3 Absolute Neuts (auto) (1.4-6.5) pCO2 (35-45) mm/Hg pO2 (80-100) mm/Hg HCO3 (21-28) mmol/L ABG pH (7.35-7.45) ABG Total CO2 (22-28) mmol.L ABG O2 Saturation (95-98) % ABG O2 Content (15-23) ML/dl ABG Base Excess (-2.0-3.0) mmol/L ABG Hemoglobin (11.7-17.4) g/dL ABG Carboxyhemoglobin (0.5-1.5) % POC ABG HHb (Measured) (0-5) % ABG Methemoglobin (0.0-3.0) % ABG O2 Capacity (16-24) mL/dl ABG Potassium (3.6-5.2) mmol/L Hgb O2 Saturation (95.0-98.0) % Sodium (132-148) mmol/L Chloride (98-107) mmol/L Glucose (75-110) mg/dl Lactate (0.7-2.1) mmol/L FiO2 % Inspiratory BiPAP Crit Value Called To Crit Value Called By Blood Gas Notified Time Potassium (3.6-5.0) mmol/L Carbon Dioxide (21-33) mmol/L Anion Gap (10-20) BUN (7-21) mg/dL Creatinine (0.8-1.5) mg/dl Est GFR ( Amer) Est GFR (Non-Af Amer) Random Glucose (70-110) mg/dL Calcium (8.4-10.5) mg/dL Magnesium (1.7-2.2) mg/dL Total Bilirubin (0.2-1.3) mg/dL Direct Bilirubin (0.0-0.4) mg/dL AST (17-59) U/L ALT (7-56) U/L Alkaline Phosphatase (38-126) U/L Total Creatine Kinase (35-230) U/L Troponin I ng/mL NT-Pro-B Natriuret Pep (0-450) pg/mL Total Protein (5.8-8.3) g/dL Albumin (3.0-4.8) g/dL Globulin gm/dL Albumin/Globulin Ratio (1.1-1.8) Arterial Blood Potassium (3.6-5.2) mmol/L Urine Color (YELLOW) Urine Appearance (CLEAR) Urine pH (4.7-8.0) Ur Specific [place] (1.005-1.035) Urine Protein (<30 mg/dL) mg/dL Urine Glucose (UA) (NEGATIVE) mg/dL Urine Ketones (NEGATIVE) mg/dL Urine Blood (NEGATIVE) Urine Nitrate (NEGATIVE) Urine Bilirubin (NEGATIVE) Urine Urobilinogen (<1 E.U./dL) E.U./dL Ur Leukocyte Esterase (NEGATIVE) [place]/uL Urine RBC Urine WBC (0-6) /hpf Ur Epithelial Cells (0-5) /hpf Amorphous Sediment (NONE) /hpf Fluid Appearance Clear (CLEAR) Fluid WBC 283.0 (0.0-300.0) /uL Fluid RBC 35.0 H (0.0-0.0) /uL Fluid Tot Cell Count 100 H (0-0) Fluid Mononuclear Cell 74.9 H (0-0) % Fl Polymorphonucl Cell 25.1 H (0-0) % Fluid Comment TEST NOT PERFORMED Thoracentesis Fluid pH Laboratory Results - last 24 hr 08/31/18 08/31/18 08/31/18 12:45 12:45 15:40 WBC RBC Hgb Hct MCV MCH MCHC RDW Plt Count MPV Neut % (Auto) Lymph % (Auto) [place] % (Auto) Eos % (Auto) Baso % (Auto) Lymph # (Auto) [place] # (Auto) Eos # (Auto) Baso # (Auto) Absolute Neuts (auto) pCO2 66 H pO2 74.0 L HCO3 27.6 ABG pH 7.23 L ABG Total CO2 29.6 H ABG O2 Saturation 97.1 ABG O2 Content ABG Base Excess -1.5 ABG Hemoglobin ABG Carboxyhemoglobin POC ABG HHb (Measured) ABG Methemoglobin ABG O2 Capacity ABG Potassium 3.9 Hgb O2 Saturation Sodium 132.0 Chloride 101.0 Glucose 101 Lactate 0.9 FiO2 100.0 Inspiratory BiPAP 20 Crit Value Called To Jeanne patel Crit Value Called By Wilmar abbott Blood Gas Notified Time 1556 Potassium Carbon Dioxide Anion Gap BUN Creatinine Est GFR ( Amer) Est GFR (Non-Af Amer) Random Glucose Calcium Magnesium Total Bilirubin Direct Bilirubin AST ALT Alkaline Phosphatase Total Creatine Kinase Troponin I NT-Pro-B Natriuret Pep Total Protein Albumin Globulin Albumin/Globulin Ratio Arterial Blood Potassium 3.9 Urine Color Urine Appearance Urine pH Ur Specific [place] Urine Protein Urine Glucose (UA) Urine Ketones Urine Blood Urine Nitrate Urine Bilirubin Urine Urobilinogen Ur Leukocyte Esterase Urine RBC Urine WBC Ur Epithelial Cells Amorphous Sediment Fluid Appearance Clear Fluid WBC 283.0 Fluid RBC 35.0 H Fluid Tot Cell Count 100 H Fluid Mononuclear Cell 74.9 H Fl Polymorphonucl Cell 25.1 H Fluid Comment TEST NOT PERFORMED Thoracentesis Fluid pH 7.0 08/31/18 09/01/18 09/01/18 21:48 05:00 05:40 WBC 23.6 H RBC 3.98 Hgb 10.7 L Hct 36.2 L MCV 91.0 MCH 26.9 MCHC 29.6 L RDW 14.6 H Plt Count 174 MPV 9.9 Neut % (Auto) 84.1 H Lymph % (Auto) 5.2 L [place] % (Auto) 3.9 Eos % (Auto) 6.7 H Baso % (Auto) 0.1 Lymph # (Auto) 1.2 [place] # (Auto) 0.9 H Eos # (Auto) 1.6 H Baso # (Auto) 0.03 Absolute Neuts (auto) 19.84 H pCO2 53 H pO2 87.0 HCO3 24.9 ABG pH 7.28 L ABG Total CO2 26.5 ABG O2 Saturation 98.4 H ABG O2 Content 13.7 L ABG Base Excess -2.2 L ABG Hemoglobin 10.1 L ABG Carboxyhemoglobin 1.7 H POC ABG HHb (Measured) 1.6 ABG Methemoglobin 1.3 ABG O2 Capacity 13.9 L ABG Potassium Hgb O2 Saturation 95.4 Sodium Chloride Glucose Lactate FiO2 100.0 Inspiratory BiPAP Crit Value Called To Crit Value Called By Blood Gas Notified Time Potassium Carbon Dioxide Anion Gap BUN Creatinine Est GFR ( Amer) Est GFR (Non-Af Amer) Random Glucose Calcium Magnesium Total Bilirubin Direct Bilirubin AST ALT Alkaline Phosphatase Total Creatine Kinase Troponin I NT-Pro-B Natriuret Pep Total Protein Albumin Globulin Albumin/Globulin Ratio Arterial Blood Potassium Urine Color Sheryl Urine Appearance Turbid Urine pH 5.5 Ur Specific [place] >= 1.030 Urine Protein 30 H Urine Glucose (UA) Negative Urine Ketones Trace H Urine Blood Negative Urine Nitrate Negative Urine Bilirubin Negative Urine Urobilinogen 1.0 H Ur Leukocyte Esterase Negative Urine RBC TEST NOT PERFORMED Urine WBC 2 - 5 Ur Epithelial Cells 4 - 5 Amorphous Sediment Many Fluid Appearance Fluid WBC Fluid RBC Fluid Tot Cell Count Fluid Mononuclear Cell Fl Polymorphonucl Cell Fluid Comment Thoracentesis Fluid pH 09/01/18 05:40 WBC RBC Hgb Hct MCV MCH MCHC RDW Plt Count MPV Neut % (Auto) Lymph % (Auto) [place] % (Auto) Eos % (Auto) Baso % (Auto) Lymph # (Auto) [place] # (Auto) Eos # (Auto) Baso # (Auto) Absolute Neuts (auto) pCO2 pO2 HCO3 ABG pH ABG Total CO2 ABG O2 Saturation ABG O2 Content ABG Base Excess ABG Hemoglobin ABG Carboxyhemoglobin POC ABG HHb (Measured) ABG Methemoglobin ABG O2 Capacity ABG Potassium Hgb O2 Saturation Sodium 130 L Chloride 97 L Glucose Lactate FiO2 Inspiratory BiPAP Crit Value Called To Crit Value Called By Blood Gas Notified Time Potassium 4.6 Carbon Dioxide 28 Anion Gap 10 BUN 37 H Creatinine 2.1 H Est GFR ( Amer) 38 Est GFR (Non-Af Amer) 31 Random Glucose 115 H Calcium 7.8 L Magnesium 1.8 Total Bilirubin 0.5 Direct Bilirubin 0.4 AST 28 ALT 10 Alkaline Phosphatase 93 Total Creatine Kinase < 20 L Troponin I < 0.01 D NT-Pro-B Natriuret Pep 77695 H Total Protein 5.5 L Albumin 2.1 L Globulin 3.3 Albumin/Globulin Ratio 0.6 L Arterial Blood Potassium Urine Color Urine Appearance Urine pH Ur Specific [place] Urine Protein Urine Glucose (UA) Urine Ketones Urine Blood Urine Nitrate Urine Bilirubin Urine Urobilinogen Ur Leukocyte Esterase Urine RBC Urine WBC Ur Epithelial Cells Amorphous Sediment Fluid Appearance Fluid WBC Fluid RBC Fluid Tot Cell Count Fluid Mononuclear Cell Fl Polymorphonucl Cell Fluid Comment Thoracentesis Fluid pH Radiology Impressions: Radiology Impressions Thoracentesis Ultrasound 08/31/18 10:15 IMPRESSION: 1. Ultrasound guided right thoracentesis. 1700cc of clear, straw-colored fluid was aspirated. The appropriate labs were sent Chest X-Ray 08/31/18 14:54 IMPRESSION: Probable left-sided atelectasis with shift of heart and mediastinum towards the left side. This represents rapid interval change from the earlier examination of the same date. Consider the possibility of mucous plugging. Chest X-Ray 08/31/18 16:51 IMPRESSION: Satisfactory position of recently placed endotracheal tube. Acceptable but sub optimal placement of nasogastric tube which should be advanced. Stable findings in the left hemithorax. Chest X-Ray 09/01/18 06:00 IMPRESSION: Complete opacification of the left hemithorax. Mediastinal shift to the left. EKG/Cardiology Studies: Cardiology / EKG Studies 09/01/18 07:00 ELECTROCARDIOGRAM DAILY Comment: Reason For Exam: CHF 09/02/18 07:00 ELECTROCARDIOGRAM DAILY Comment: Reason For Exam: CHF 09/03/18 07:00 ELECTROCARDIOGRAM DAILY Comment: Reason For Exam: CHF Critical Care Progress Note - Nutrition Nutrition: Nutrition Category Date Time Status NPO Diet [DIET] Diets 09/01/18 Lunch Ordered Assessment/Plan - Assessment and Plan (Free Text) Plan: Patient is 68yo male with PMHx of chronic back pain, admitted for foot pain, subequently went into resp failure, shock, requiring vasopressor support, intubation. Currently intubated, on minimum pressor support Unclear etiology of shock and pleural effusions Labs, imaging, chart reviewed CXR with complete opacification fo L lung, effusion, vs mucus plugging Will need L sided U/S of lung R IJ in place Worsening renal function, likely 2/2 ATN from shock Yesterday had thoracentesis, 1.7L removed, clear, pleural fluid LDH, protein pending, cultures pending Bedside U/S: IVC 1.9cm, LV moderately reduced function, bilateral B lines (Lungs) Shock, likely septic vs cardiogenic or mixed PLeural effusions rule out mucus plugging Respiratory failure CHF PNA Recommend: - cont with vent support, low tidal vol ventilation, increase PEEP to 10, titrate down FiO2 - broad spectrum abx as per ID, follow up cultures, Urine Lg, s rep, Procal - follow up cardiology - would start on ionotropic support, Dobutamine - Levophed, Vasopressin, Stress dose steroids - monitor LFTS - aggressive chest PT - may require bronchoscopy - would bolus 1L NS - renal consult - GI ppx - DVT ppx - Monitor in MICU Critical care time 45 minutes
[2018-09-01] MEDS: Linezolid 600 mg in D5W 300 ml 600 MG/300 ML BAG IVPB SCH ×2 (08:59→22:44)
[2018-09-01] MEDS: Meropenem IV 1 gm in NS 1 GM/50 ML BAG IVPB SCH ×2 (09:00→22:44)
[2018-09-01] MEDS: Ammonium Lactate 12% Cream (140 g) TOP SCH (09:03)
[2018-09-01] MEDS: Mupirocin 2% Ointment 15 GM TUBE TOP SCH ×2 (09:05→17:53)
--- NOTE | 2018-09-01 09:16 | CP.PCM.PN ---
Subjective - Date & Time of Evaluation Date of Evaluation: 09/01/18 Time of Evaluation: 09:09 - Subjective Subjective: PGY-[address] Hernandez U/o increases to 350 in 12 hours. oliguric previous day shift intubated Objective - Vital Signs/Intake and Output Vital Signs (last 24 hours): Temp Pulse Resp BP Pulse Ox 98.4 F 73 17 115/53 L 97 08/31/18 18:30 08/31/18 22:00 08/31/18 18:30 09/01/18 09:02 08/31/18 18:30 Intake and Output: 09/01/18 09/01/18 06:59 18:59 Intake Total 1370 Output Total 350 Balance 1020 - Medications Medications: Current Medications Acetaminophen (Tylenol 325mg Tab) 650 mg PO Q6 PRN PRN Reason: TEMP>=99.5F Last Admin: 08/30/18 01:53 Dose: 650 mg Acetaminophen (Tylenol 650 Mg Supp) 650 mg RC Q6H PRN PRN Reason: TEMP>=99.5F Acetylcysteine (Acetylcysteine 20%) 4 ml IH [id number] [facility] Last Admin: 09/01/18 07:46 Dose: 4 ml Bisacodyl (Dulcolax) 10 mg RC HS PRN PRN Reason: Constipation Collagenase (Santyl) 0 gm TOP DAILY [facility] Last Admin: 08/31/18 11:26 Dose: Not Given Cyanocobalamin (Vitamin B12 1000 Mcg/Ml Inj) 1,000 mcg IM DAILY [facility] Stop: 09/04/18 10:01 Last Admin: 09/01/18 09:01 Dose: 1,000 mcg Enoxaparin Sodium (Lovenox) 40 mg SC DAILY [facility]; Protocol Last Admin: 08/31/18 10:49 Dose: 40 mg Ergocalciferol (Drisdol 50,000 Intl Units Cap) 1 cap PO Q7D [facility] Last Admin: 08/26/18 15:49 Dose: 1 cap Folic Acid (Folic Acid) 1 mg PO DAILY [facility] Last Admin: 09/01/18 09:04 Dose: 1 mg Furosemide (Lasix) 40 mg IVP Q12 [facility] Last Admin: 09/01/18 09:02 Dose: 40 mg Meropenem (Merrem Iv 1 Gm Premix) 1 gm in 50 mls @ 100 mls/hr IVPB Q12 [facility]; Protocol Stop: 09/07/18 10:01 Last Admin: 09/01/18 09:00 Dose: 100 mls/hr Linezolid (Zyvox 600mg/300ml D5w) 600 mg in 300 mls @ 200 mls/hr IVPB Q12 [facility]; Protocol Stop: 09/07/18 10:01 Last Admin: 09/01/18 08:59 Dose: 200 mls/hr NOREPINEPHRINE BIT/0.9 % NACL (Levophed 4 Mg/ 250 Ml Ns Premixed) 4 mg in 250 mls @ 15 mls/hr IV .[id number] PRN; Protocol PRN Reason: TITRATE PER MD ORDER Last Admin: 09/01/18 05:01 Dose: 8 mcg/min, 30 mls/hr Dexmedetomidine HCl (Precedex 400mcg/100ml) 400 mcg in 100 mls @ 3.856 mls/hr IV .Q24H PRN; Protocol PRN Reason: Sedation Last Titration: 09/01/18 06:13 Dose: 0.8 mcg/kg/hr, 15.422 mls/hr Vasopressin 20 units/ Dextrose 101 mls @ 9.09 mls/hr IV .Q11H7M [facility]; Protocol Last Admin: 09/01/18 05:09 Dose: 9.09 mls/hr Lactic Acid (Lac-Hydrin 12% Cream (140 G)) 0 ea TOP DAILY [facility] Last Admin: 09/01/18 09:03 Dose: 1 applic Levalbuterol HCl (Xopenex) 0.63 mg IH [id number] [facility] Last Admin: 09/01/18 07:46 Dose: 0.63 mg Lorazepam (Ativan) 1 mg IVP Q6H PRN; Protocol PRN Reason: Anxiety Metoprolol Tartrate (Lopressor) 50 mg PO Q8H [facility] Last Admin: 08/31/18 10:03 Dose: Not Given Morphine Sulfate (Morphine Extended Release Tab) 90 mg PO Q12 [facility] Last Admin: 08/31/18 22:31 Dose: 90 mg Mupirocin (Bactroban Ointment) 0 gm TOP BID [facility] Last Admin: 09/01/18 09:05 Dose: 1 appl Nicotine (Nicoderm Cq) 1 patch TD DAILY [facility] Last Admin: 09/01/18 09:00 Dose: 1 patch Ondansetron HCl (Zofran Inj) 4 mg IVP Q4H PRN PRN Reason: Nausea/Vomiting Pantoprazole Sodium (Protonix Ec Tab) 40 mg PO 0600 [facility] Last Admin: 09/01/18 05:01 Dose: Not Given Polyethylene Glycol (Miralax) 17 gm PO DAILY [facility] Last Admin: 08/31/18 11:23 Dose: Not Given - Labs Labs: 09/01/18 05:40 09/01/18 05:40 PT 15.1 SECONDS (9.4-12.5) H 08/23/18 22:20 INR 1.36 08/23/18 22:20 APTT 27.9 Seconds (26.9-38.3) 08/23/18 22:20 - Constitutional Appears: Other (intubated, sedated) - Head Exam Head Exam: ATRAUMATIC, NORMAL INSPECTION, NORMOCEPHALIC - Eye Exam Eye Exam: EOMI, Normal appearance, PERRL. absent: Scleral icterus Pupil Exam: NORMAL ACCOMODATION - ENT Exam ENT Exam: Mucous Membranes Moist - Neck Exam Additional comments: supple - Respiratory Exam Respiratory Exam: Decreased Breath Sounds, Rales - Cardiovascular Exam Cardiovascular Exam: REGULAR RHYTHM, +S1, +S2 - GI/Abdominal Exam GI & Abdominal Exam: Soft, Hypoactive Bowel Sounds - Extremities Exam Extremities Exam: Pedal Edema - Neurological Exam Additional comments: sedated - Psychiatric Exam Psychiatric exam: Flat Affect - Skin Skin Exam: Dry, Warm Assessment and Plan - Assessment and Plan (Free Text) Plan: Mr Dodd, 68M, with PMhx penicillin allergy, chronic back pain and vertebral disc disease admitted for b/l foot cellulitis r/o osteomyelitis and L thigh decubitus. During the hospital stay, he developes hypoxemic hypercapnic respiratory distress requiring high flow and BIPAP. He deveople acute CHF complicated by large b/l pleural effusion and suspected pneumonia with sepsis and high procalcitonin. He refused thoracentesis (08/30) He is upgrades to ICU on 07/10 for AMS with increased lethargy and low BP requirng levophed and vassopressin. He received thoracentesis by bedside (08/31) 1700cc drained from R side. Plan to have another thoracentesis. He was intubated on 08/31 for Hyperca pnic hypoxemic respiratory distress. He had oliguria from low BP, now U/O improves on pressor, but developed FRANCES Hypercapnic hypoxemic respiratory distress, intubated day 2 - ICU management. Bipap. 1700cc via thoracentesis [ ] Thoracentesis L side Shock on duo-pressor - Septic vs cardiogenic. Had rule out obstructive from PE (negative CTA-chest) [ ] Pending cardiology decision to add dobutamine Possible Septic shock due to HAP with b/l foot cellulitis which grew MRSA. PLUS multiple decubitus ulcers - Linezolid (day 2) and Merem (day 3) s/p vancomycin. - On 2 pressors. Add stress dose solucortef - SRINIVAS was only mildly abnormal at rest, possible PAD. - For sacral decubitus stage 3, L thigh, he is on santyl and local wound care. No osteomyelitis - pt refuses MRI to r/o osteomyelitis. - ESR 105 [ ] surgery to see if decub ulcers worsen CHF, b/l pleural effusion large, s/p R thoracentesis (POD #1) RBBB (questionable new onset vs chronic) with prolong Qtc 496 - Echo (08/31): EF 50s (on pressor). RVSP 62. RV hypokinetic/dilated - Questionable RHF - Hold beta lisa due to acute heart failure FRANCES, cre 2.1, likely ATN from hypoperfusion/low BP - strict i/o. trend cre/bun He is anemic with Hb 8.4 on 08/25. He got 1u pRBC, s/p 5 days of Fe IV (today day 11/21) Hyponatermia, mild, asymptomatci, s/p NS@50. Stop IVF for now due to deSat. For anxiety, he is on ativan PRN For tobacco addition, certified travel counselor for cessation and he is on nicoderm dispo plan: PT recommends [facility]Z. [ ] Antibiotics. [ ] cytology from pleural effusion [ ] consult SW to find pt's contact s/r/d/w Dr Hernandez
[2018-09-01] MEDS: POLYETHYLENE GLYCOL 3350 17 GM/Dose PACKET PO SCH (09:24)
[2018-09-01] MEDS: Morphine 15 mg SR Tab PO SCH (09:25)
[2018-09-01] MEDS: Collagenase 250 Units/gm Ointment(30 gm) TOP SCH (10:00)
--- NOTE | 2018-09-01 10:00 | RAD ---
Date of service: 09/01/2018 HISTORY: CHF COMPARISON: 08/31/2018 FINDINGS: LUNGS: Complete opacification of the left hemithorax. Mediastinal shift to the left. PLEURA: As above CARDIOVASCULAR: Aortic calcification Normal cardiac size. No pulmonary vascular congestion. OSSEOUS STRUCTURES: No significant abnormalities. VISUALIZED UPPER ABDOMEN: Normal. OTHER FINDINGS: Endotracheal tube is in satisfactory position. The nasogastric tube terminates just beyond the GE junction. The side hole is seen in the distal esophagus. The tube could be advanced IMPRESSION: Complete opacification of the left hemithorax. Mediastinal shift to the left.
--- NOTE | 2018-09-01 10:06 | CARD ---
APPROVED REPORT Date of service: 09/01/2018 EKG Measurement Heart [id number] <Conclusion> Baseline artifact Needs study repeated Probable atrial fibrillation Artifact precludes any further interpretation Abnormal ECG
[2018-09-01] MEDS ORDERED: Fentanyl 1000mcg/100ml NS 1,000 MCG/100 ML BAG IV PRN (10:23)
--- NOTE | 2018-09-01 11:08 | CP.PCM.CON ---
History of Present Illness - History of Present Illness History of Present Illness: renal consult note 68 years old man, currently intubated hx from records, with PMhx of chronic back pain and vertebral disc disease admitted for b/l foot cellulitis r/o osteomyelitis and L thigh decubitus. During the hospital stay, he developed hypoxemic hypercapnic respiratory failure s/p intubattion, acute CHF complicated by large b/l pleural effusion and suspected pneumonia with sepsis syndrome currently on pressors. no prior ckd per records his cr was normal on admission on 08/28 he eceived iv contrast for chest ct and cr elevated to 1.5 72 hours after. oliguricyesterday but not responding to lasix unable to obtain ros as intubated meds reviewed labs reviewed xray s/o pulmonary vascular congestion vitals reviewed on pressor support folye + intubated ao times0 no jvd HANS, no icterus [id number] vent dep, decreased bs bases abd soft ext unremarkable, foot in dressing FRANCES/ATN/CHF/sepsis syndrome/acute resp failure/hyponatremia frances sec to prerenal ischemia azotemia leading to ATN, he may have been developing contrast induced nephropathy as cr had risen post ct 72 hours later. monitor I&Os maintain hemodynamic stable pressor per icu, ok to lasix prn cautious if bp is too low check urinalysis, urine pr/cr ratio check renal usg to rule obstruction hyponatremia: was on fluids which have been stopped now, check urine and serum osm d/w icu housestaff please call us [phone] if any qs or concerns Past Patient History - Past Social History Chewing Tobacco Use: No - CARDIAC Hx Cardiac Disorders: No Hx Hypertension: No Hx Pacemaker: No - PULMONARY Hx Respiratory Disorders: No Hx Asthma: No Hx Chronic Obstructive Pulmonary Disease (COPD): No Hx Emphysema: No - NEUROLOGICAL HX Cerebrovascular Accident: No Hx Dementia: No Hx Seizures: No - RENAL Hx Chronic Kidney Disease: No - HEMATOLOGICAL/ONCOLOGICAL Hx Cancer: No - INTEGUMENTARY Other/Comment: cellulitis ble - MUSCULOSKELETAL/RHEUMATOLOGICAL Hx Musculoskeletal Disorders: Yes - GASTROINTESTINAL Hx Gastroesophageal Reflux: No - GENITOURINARY/GYNECOLOGICAL Hx Genitourinary Disorders: No - PSYCHIATRIC Hx Depression: No Hx Emotional Abuse: No Hx Physical Abuse: No Hx Substance Use: No - SURGICAL HISTORY Hx Surgeries: No Meds Allergies/Adverse Reactions: Allergies Allergy/AdvReac Type Severity Reaction Status Date / Time Penicillins Allergy RASH Verified 08/23/18 21:25 - Medications Medications: Current Medications Acetaminophen (Tylenol 325mg Tab) 650 mg PO Q6 PRN PRN Reason: TEMP>=99.5F Last Admin: 08/30/18 01:53 Dose: 650 mg Acetaminophen (Tylenol 650 Mg Supp) 650 mg RC Q6H PRN PRN Reason: TEMP>=99.5F Acetylcysteine (Acetylcysteine 20%) 4 ml IH [id number] [facility] Last Admin: 09/01/18 07:46 Dose: 4 ml Bisacodyl (Dulcolax) 10 mg RC HS PRN PRN Reason: Constipation Collagenase (Santyl) 0 gm TOP DAILY [facility]S [facility] Last Admin: 08/31/18 11:26 Dose: Not Given Cyanocobalamin (Vitamin B12 1000 Mcg/Ml Inj) 1,000 mcg IM DAILY [facility] Stop: 09/04/18 10:01 Last Admin: 09/01/18 09:01 Dose: 1,000 mcg Enoxaparin Sodium (Lovenox) 40 mg SC DAILY [facility]S [facility]; Protocol Last Admin: 08/31/18 10:49 Dose: 40 mg Ergocalciferol (Drisdol 50,000 Intl Units Cap) 1 cap PO Q7D [facility] 234 BEDS AT [facility] Last Admin: 08/26/18 15:49 Dose: 1 cap Folic Acid (Folic Acid) 1 mg PO DAILY [facility] 234 [facility]S AT [facility] Last Admin: 09/01/18 09:04 Dose: 1 mg Furosemide (Lasix) 40 mg IVP Q12 [facility] Last Admin: 09/01/18 09:02 Dose: 40 mg Hydrocortisone Sodium Succinate (Solu-Cortef) 50 mg IVP Q6 [facility] Meropenem (Merrem Iv 1 Gm Premix) 1 gm in 50 mls @ 100 mls/hr IVPB Q12 [facility]; Protocol Stop: 09/07/18 10:01 Last Admin: 09/01/18 09:00 Dose: 100 mls/hr Linezolid (Zyvox 600mg/300ml D5w) 600 mg in 300 mls @ 200 mls/hr IVPB Q12 [facility]; Protocol Stop: 09/07/18 10:01 Last Admin: 09/01/18 08:59 Dose: 200 mls/hr NOREPINEPHRINE BIT/0.9 % NACL (Levophed 4 Mg/ 250 Ml Ns Premixed) 4 mg in 250 mls @ 15 mls/hr IV .[id number] PRN; Protocol PRN Reason: TITRATE PER MD ORDER Last Admin: 09/01/18 09:27 Dose: 8 mcg/min, 30 mls/hr Dexmedetomidine HCl (Precedex 400mcg/100ml) 400 mcg in 100 mls @ 3.856 mls/hr IV .Q24H PRN; Protocol PRN Reason: Sedation Last Titration: 09/01/18 06:13 Dose: 0.8 mcg/kg/hr, 15.422 mls/hr Vasopressin 20 units/ Dextrose 101 mls @ 9.09 mls/hr IV .Q11H7M [facility]; Protocol Last Admin: 09/01/18 05:09 Dose: 9.09 mls/hr Fentanyl Citrate (Fentanyl Citrate/Sodium Chloride 1 Mg/100 Ml) 1,000 mcg in 100 mls @ 5 mls/hr IV .Q20H PRN; Protocol PRN Reason: TITRATE PER MD ORDER Lactic Acid (Lac-Hydrin 12% Cream (140 G)) 0 ea TOP DAILY [facility] 234 [facility]S [facility] Last Admin: 09/01/18 09:03 Dose: 1 applic Levalbuterol HCl (Xopenex) 0.63 mg IH [id number] [facility] 234 BEDS AT [facility] Last Admin: 09/01/18 07:46 Dose: 0.63 mg Lorazepam (Ativan) 1 mg IVP Q6H PRN; Protocol PRN Reason: Anxiety Metoprolol Tartrate (Lopressor) 50 mg PO Q8H [facility] 234 B[facility]S AT [facility] Last Admin: 08/31/18 10:03 Dose: Not Given Mupirocin (Bactroban Ointment) 0 gm TOP BID [facility] 234 B[facility]S AT [facility] Last Admin: 09/01/18 09:05 Dose: 1 appl Nicotine (Nicoderm Cq) 1 patch TD DAILY [facility] 234 B[facility]S AT [facility] Last Admin: 09/01/18 09:00 Dose: 1 patch Ondansetron HCl (Zofran Inj) 4 mg IVP Q4H PRN PRN Reason: Nausea/Vomiting Pantoprazole Sodium (Protonix Ec Tab) 40 mg PO 0600 [facility] 234 [facility]S AT [facility] Last Admin: 09/01/18 05:01 Dose: Not Given Polyethylene Glycol (Miralax) 17 gm PO DAILY [facility] 234 B[facility]S AT [facility] Last Admin: 09/01/18 09:24 Dose: 17 gm Results - Vital Signs Recent Vital Signs: Last Vital Signs Temp 98.4 F 08/31/18 18:30 Pulse 73 08/31/18 22:00 Resp 17 08/31/18 18:30 BP 115/53 L 09/01/18 09:02 Pulse Ox 97 08/31/18 18:30 - Labs Result Diagrams: 09/01/18 05:40 09/01/18 05:40 Labs: Laboratory Results - last 24 hr 08/31/18 08/31/18 08/31/18 12:25 12:30 12:45 WBC RBC Hgb Hct MCV MCH MCHC RDW Plt Count MPV Neut % (Auto) Lymph % (Auto) Potter % (Auto) Eos % (Auto) Baso % (Auto) Lymph # (Auto) Potter # (Auto) Eos # (Auto) Baso # (Auto) Absolute Neuts (auto) pCO2 65 H pO2 46.0 L HCO3 28.5 H ABG pH 7.25 L ABG Total CO2 30.5 H ABG O2 Saturation 86.8 L ABG O2 Content 11.8 L ABG Base Excess 0.3 ABG Hemoglobin 10.0 L ABG Carboxyhemoglobin 2.4 H POC ABG HHb (Measured) 12.7 H ABG Methemoglobin 1.1 ABG O2 Capacity 13.6 L ABG Potassium Hgb O2 Saturation 83.8 L Sodium Chloride Glucose Lactate FiO2 100.0 Inspiratory BiPAP Crit Value Called To Jeanne patel Crit Value Called By Wilmar abbott Blood Gas Notified Time 1233 Potassium Carbon Dioxide Anion Gap BUN Creatinine Est GFR ( Amer) Est GFR (Non-Af Amer) Random Glucose Calcium Magnesium Total Bilirubin Direct Bilirubin AST ALT Alkaline Phosphatase Lactate Dehydrogenase 615 Total Creatine Kinase Troponin I NT-Pro-B Natriuret Pep Total Protein Albumin Globulin Albumin/Globulin Ratio Arterial Blood Potassium Urine Color Urine Appearance Urine pH Ur Specific [place] Urine Protein Urine Glucose (UA) Urine Ketones Urine Blood Urine Nitrate Urine Bilirubin Urine Urobilinogen Ur Leukocyte Esterase Urine RBC Urine WBC Ur Epithelial Cells Amorphous Sediment Fluid Source Pleural/thoracentesi Fluid Appearance Clear Fluid WBC 283.0 Fluid RBC 35.0 H Fluid Tot Cell Count 100 H Fluid Mononuclear Cell 74.9 H Fl Polymorphonucl Cell 25.1 H Fluid Comment TEST NOT PERFORMED Thoracentesis Fluid pH 08/31/18 08/31/18 08/31/18 12:45 15:40 21:48 WBC RBC Hgb Hct MCV MCH MCHC RDW Plt Count MPV Neut % (Auto) Lymph % (Auto) Potter % (Auto) Eos % (Auto) Baso % (Auto) Lymph # (Auto) Potter # (Auto) Eos # (Auto) Baso # (Auto) Absolute Neuts (auto) pCO2 66 H pO2 74.0 L HCO3 27.6 ABG pH 7.23 L ABG Total CO2 29.6 H ABG O2 Saturation 97.1 ABG O2 Content ABG Base Excess -1.5 ABG Hemoglobin ABG Carboxyhemoglobin POC ABG HHb (Measured) ABG Methemoglobin ABG O2 Capacity ABG Potassium 3.9 Hgb O2 Saturation Sodium 132.0 Chloride 101.0 Glucose 101 Lactate 0.9 FiO2 100.0 Inspiratory BiPAP 20 Crit Value Called To Jeanne patel Crit Value Called By Wilmar abbott Blood Gas Notified Time 1556 Potassium Carbon Dioxide Anion Gap BUN Creatinine Est GFR ( Amer) Est GFR (Non-Af Amer) Random Glucose Calcium Magnesium Total Bilirubin Direct Bilirubin AST ALT Alkaline Phosphatase Lactate Dehydrogenase Total Creatine Kinase Troponin I NT-Pro-B Natriuret Pep Total Protein Albumin Globulin Albumin/Globulin Ratio Arterial Blood Potassium 3.9 Urine Color Sheryl Urine Appearance Turbid Urine pH 5.5 Ur Specific [place] >= 1.030 Urine Protein 30 H Urine Glucose (UA) Negative Urine Ketones Trace H Urine Blood Negative Urine Nitrate Negative Urine Bilirubin Negative Urine Urobilinogen 1.0 H Ur Leukocyte Esterase Negative Urine RBC TEST NOT PERFORMED Urine WBC 2 - 5 Ur Epithelial Cells 4 - 5 Amorphous Sediment Many Fluid Source Fluid Appearance Fluid WBC Fluid RBC Fluid Tot Cell Count Fluid Mononuclear Cell Fl Polymorphonucl Cell Fluid Comment Thoracentesis Fluid pH 7.0 09/01/18 09/01/18 09/01/18 05:00 05:40 05:40 WBC 23.6 H RBC 3.98 Hgb 10.7 L Hct 36.2 L MCV 91.0 MCH 26.9 MCHC 29.6 L RDW 14.6 H Plt Count 174 MPV 9.9 Neut % (Auto) 84.1 H Lymph % (Auto) 5.2 L Potter % (Auto) 3.9 Eos % (Auto) 6.7 H Baso % (Auto) 0.1 Lymph # (Auto) 1.2 Potter # (Auto) 0.9 H Eos # (Auto) 1.6 H Baso # (Auto) 0.03 Absolute Neuts (auto) 19.84 H pCO2 53 H pO2 87.0 HCO3 24.9 ABG pH 7.28 L ABG Total CO2 26.5 ABG O2 Saturation 98.4 H ABG O2 Content 13.7 L ABG Base Excess -2.2 L ABG Hemoglobin 10.1 L ABG Carboxyhemoglobin 1.7 H POC ABG HHb (Measured) 1.6 ABG Methemoglobin 1.3 ABG O2 Capacity 13.9 L ABG Potassium Hgb O2 Saturation 95.4 Sodium 130 L Chloride 97 L Glucose Lactate FiO2 100.0 Inspiratory BiPAP Crit Value Called To Crit Value Called By Blood Gas Notified Time Potassium 4.6 Carbon Dioxide 28 Anion Gap 10 BUN 37 H Creatinine 2.1 H Est GFR ( Amer) 38 Est GFR (Non-Af Amer) 31 Random Glucose 115 H Calcium 7.8 L Magnesium 1.8 Total Bilirubin 0.5 Direct Bilirubin 0.4 AST 28 ALT 10 Alkaline Phosphatase 93 Lactate Dehydrogenase Total Creatine Kinase < 20 L Troponin I < 0.01 D NT-Pro-B Natriuret Pep 81577 H Total Protein 5.5 L Albumin 2.1 L Globulin 3.3 Albumin/Globulin Ratio 0.6 L Arterial Blood Potassium Urine Color Urine Appearance Urine pH Ur Specific [place] Urine Protein Urine Glucose (UA) Urine Ketones Urine Blood Urine Nitrate Urine Bilirubin Urine Urobilinogen Ur Leukocyte Esterase Urine RBC Urine WBC Ur Epithelial Cells Amorphous Sediment Fluid Source Fluid Appearance Fluid WBC Fluid RBC Fluid Tot Cell Count Fluid Mononuclear Cell Fl Polymorphonucl Cell Fluid Comment Thoracentesis Fluid pH
--- NOTE | 2018-09-01 11:42 | CP.PCM.PN ---
Subjective - Date & Time of Evaluation Date of Evaluation: 09/01/18 Time of Evaluation: 11:37 - Subjective Subjective: Surgery Progress Note for Dr. Harvey S/E at bedside. Intubated but arousable during examination, on precedex drip Re-evaluation for management of decubitus ulcers Limited ROS 2/2 patient clinical condition Objective - Vital Signs/Intake and Output Vital Signs (last 24 hours): Temp Pulse Resp BP Pulse Ox 98.4 F 73 17 115/53 L 97 08/31/18 18:30 08/31/18 22:00 08/31/18 18:30 09/01/18 09:02 08/31/18 18:30 Intake and Output: 09/01/18 09/01/18 06:59 18:59 Intake Total 1370 250 Output Total 350 Balance 1020 250 - Medications Medications: Current Medications Acetaminophen (Tylenol 325mg Tab) 650 mg PO Q6 PRN PRN Reason: TEMP>=99.5F Last Admin: 08/30/18 01:53 Dose: 650 mg Acetaminophen (Tylenol 650 Mg Supp) 650 mg RC Q6H PRN PRN Reason: TEMP>=99.5F Acetylcysteine (Acetylcysteine 20%) 4 ml IH [id number] [facility] Last Admin: 09/01/18 07:46 Dose: 4 ml Bisacodyl (Dulcolax) 10 mg RC HS PRN PRN Reason: Constipation Collagenase (Santyl) 0 gm TOP DAILY [facility] Last Admin: 08/31/18 11:26 Dose: Not Given Cyanocobalamin (Vitamin B12 1000 Mcg/Ml Inj) 1,000 mcg IM DAILY [facility] Stop: 09/04/18 10:01 Last Admin: 09/01/18 09:01 Dose: 1,000 mcg Enoxaparin Sodium (Lovenox) 40 mg SC DAILY [facility]; Protocol Last Admin: 08/31/18 10:49 Dose: 40 mg Ergocalciferol (Drisdol 50,000 Intl Units Cap) 1 cap PO Q7D [facility] Last Admin: 08/26/18 15:49 Dose: 1 cap Folic Acid (Folic Acid) 1 mg PO DAILY [facility] Last Admin: 09/01/18 09:04 Dose: 1 mg Furosemide (Lasix) 40 mg IVP Q12 [facility] Last Admin: 09/01/18 09:02 Dose: 40 mg Hydrocortisone Sodium Succinate (Solu-Cortef) 50 mg IVP Q6 [facility] Meropenem (Merrem Iv 1 Gm Premix) 1 gm in 50 mls @ 100 mls/hr IVPB Q12 [facility]; Protocol Stop: 09/07/18 10:01 Last Admin: 09/01/18 09:00 Dose: 100 mls/hr Linezolid (Zyvox 600mg/300ml D5w) 600 mg in 300 mls @ 200 mls/hr IVPB Q12 [facility]; Protocol Stop: 09/07/18 10:01 Last Admin: 09/01/18 08:59 Dose: 200 mls/hr NOREPINEPHRINE BIT/0.9 % NACL (Levophed 4 Mg/ 250 Ml Ns Premixed) 4 mg in 250 mls @ 15 mls/hr IV .[id number] PRN; Protocol PRN Reason: TITRATE PER MD ORDER Last Admin: 09/01/18 09:27 Dose: 8 mcg/min, 30 mls/hr Dexmedetomidine HCl (Precedex 400mcg/100ml) 400 mcg in 100 mls @ 3.856 mls/hr IV .Q24H PRN; Protocol PRN Reason: Sedation Last Titration: 09/01/18 06:13 Dose: 0.8 mcg/kg/hr, 15.422 mls/hr Vasopressin 20 units/ Dextrose 101 mls @ 9.09 mls/hr IV .Q11H7M [facility]; Protocol Last Admin: 09/01/18 05:09 Dose: 9.09 mls/hr Fentanyl Citrate (Fentanyl Citrate/Sodium Chloride 1 Mg/100 Ml) 1,000 mcg in 100 mls @ 5 mls/hr IV .Q20H PRN; Protocol PRN Reason: TITRATE PER MD ORDER Dobutamine HCl/Dextrose (Dobutamine/Dextrose 5% 500mg/250ml) 500 mg in 250 mls @ 5.783 mls/hr IV .Q24H PRN; Protocol PRN Reason: TITRATE PER PROTOCOL Lactic Acid (Lac-Hydrin 12% Cream (140 G)) 0 ea TOP DAILY [facility] Last Admin: 09/01/18 09:03 Dose: 1 applic Levalbuterol HCl (Xopenex) 0.63 mg IH [id number] [facility] Last Admin: 09/01/18 07:46 Dose: 0.63 mg Lorazepam (Ativan) 1 mg IVP Q6H PRN; Protocol PRN Reason: Anxiety Metoprolol Tartrate (Lopressor) 50 mg PO Q8H [facility] Last Admin: 08/31/18 10:03 Dose: Not Given Mupirocin (Bactroban Ointment) 0 gm TOP BID [facility] Last Admin: 09/01/18 09:05 Dose: 1 appl Nicotine (Nicoderm Cq) 1 patch TD DAILY [facility] Last Admin: 09/01/18 09:00 Dose: 1 patch Ondansetron HCl (Zofran Inj) 4 mg IVP Q4H PRN PRN Reason: Nausea/Vomiting Pantoprazole Sodium (Protonix Ec Tab) 40 mg PO 0600 [facility] Last Admin: 09/01/18 05:01 Dose: Not Given Polyethylene Glycol (Miralax) 17 gm PO DAILY [facility] Last Admin: 09/01/18 09:24 Dose: 17 gm - Labs Labs: 09/01/18 05:40 09/01/18 05:40 PT 15.1 SECONDS (9.4-12.5) H 08/23/18 22:20 INR 1.36 08/23/18 22:20 APTT 27.9 Seconds (26.9-38.3) 08/23/18 22:20 - Head Exam Head Exam: NORMAL INSPECTION, NORMOCEPHALIC - ENT Exam ENT Exam: Mucous Membranes Moist - Respiratory Exam Respiratory Exam: Decreased Breath Sounds, Rales. absent: Clear to Ausculation Bilateral - Cardiovascular Exam Cardiovascular Exam: REGULAR RHYTHM, +S1, +S2 - GI/Abdominal Exam GI & Abdominal Exam: Soft. absent: Guarding, Rigid, Tenderness - Extremities Exam Extremities Exam: Pedal Edema - Back Exam Additional comments: left posterior thigh stage 2+ ulcer sacral ulcer stage 4 ulcer right ulcer - Neurological Exam Neurological Exam: absent: Alert, Awake Additional comments: intubated/sedated but arousable - Skin Skin Exam: Dry, Intact, Normal Color Assessment and Plan - Assessment and Plan (Free Text) Assessment: Mr Dodd, 68M, with PMhx penicillin allergy, chronic back pain and vertebral disc disease admitted for b/l foot cellulitis r/o osteomyelitis and L thigh decubitus. Developed hypercapnic respiratory failure requiring intubated and transfer to ICU. Surgery team asked to see patient due to possible worsening of decubitus ulcers. PLAN: Please apply Dakins solution gauze on decubitus ulcer Continue collagenase Continue further medical management as per primary/ICU team
[2018-09-01] MEDS: DOBUTamine 500mg/250ml D5W 500 MG/250 ML BAG IV PRN (11:45)
--- NOTE | 2018-09-01 12:04 | CP.PCM.PN ---
Subjective - Date & Time of Evaluation Date of Evaluation: 09/01/18 Time of Evaluation: 09:00 - Subjective Subjective: Noted events overnight, patient had thoracentesis done on the right sided with 1.7 L taken out. However, patient deteriorated and is now on the ventilator. CXR done this morning is showing complete opacification of left hemithorax. Objective - Vital Signs/Intake and Output Vital Signs (last 24 hours): Temp Pulse Resp BP Pulse Ox 98.2 F 96 H 20 98/56 L 91 L 08/31/18 06:00 08/31/18 08:03 08/31/18 06:00 08/31/18 06:00 08/31/18 06:00 Intake and Output: 08/31/18 08/31/18 06:59 18:59 Intake Total 1190 Output Total 850 Balance 340 - Medications Medications: Current Medications Acetaminophen (Tylenol 325mg Tab) 650 mg PO Q6 PRN PRN Reason: TEMP>=99.5F Last Admin: 08/30/18 01:53 Dose: 650 mg Acetaminophen (Tylenol 650 Mg Supp) 650 mg RC Q6H PRN PRN Reason: TEMP>=99.5F Acetylcysteine (Acetylcysteine 20%) 4 ml IH [id number] [facility] Last Admin: 08/31/18 07:56 Dose: 4 ml Bisacodyl (Dulcolax) 10 mg RC HS PRN PRN Reason: Constipation Collagenase (Santyl) 0 gm TOP DAILY [facility] Last Admin: 08/31/18 11:26 Dose: Not Given Cyanocobalamin (Vitamin B12 1000 Mcg/Ml Inj) 1,000 mcg IM DAILY [facility] Stop: 09/04/18 10:01 Last Admin: 08/31/18 10:50 Dose: 1,000 mcg Enoxaparin Sodium (Lovenox) 40 mg SC DAILY [facility]; Protocol Last Admin: 08/31/18 10:49 Dose: 40 mg Ergocalciferol (Drisdol 50,000 Intl Units Cap) 1 cap PO Q7D [facility] Last Admin: 08/26/18 15:49 Dose: 1 cap Folic Acid (Folic Acid) 1 mg PO DAILY [facility] Last Admin: 08/31/18 11:25 Dose: Not Given Furosemide (Lasix) 40 mg IVP Q12H [facility] Last Admin: 08/31/18 11:25 Dose: Not Given Meropenem (Merrem Iv 1 Gm Premix) 1 gm in 50 mls @ 100 mls/hr IVPB Q12 [facility]; Protocol Stop: 09/07/18 10:01 Last Admin: 08/31/18 10:48 Dose: 100 mls/hr Linezolid (Zyvox 600mg/300ml D5w) 600 mg in 300 mls @ 200 mls/hr IVPB Q12 [facility]; Protocol Stop: 09/07/18 10:01 NOREPINEPHRINE BIT/0.9 % NACL (Levophed 4 Mg/ 250 Ml Ns Premixed) 4 mg in 250 mls @ 15 mls/hr IV .[id number] PRN; Protocol PRN Reason: TITRATE PER MD ORDER Last Admin: 08/31/18 09:59 Dose: 4 mcg/min, 15 mls/hr Lactic Acid (Lac-Hydrin 12% Cream (140 G)) 0 ea TOP DAILY [facility] Last Admin: 08/31/18 11:26 Dose: Not Given Levalbuterol HCl (Xopenex) 0.63 mg IH [id number] [facility] Last Admin: 08/31/18 07:56 Dose: 0.63 mg Lorazepam (Ativan) 1 mg IVP Q6H PRN; Protocol PRN Reason: Anxiety Metoprolol Tartrate (Lopressor) 50 mg PO Q8H [facility] Last Admin: 08/31/18 10:03 Dose: Not Given Morphine Sulfate (Morphine Extended Release Tab) 90 mg PO Q12 [facility] Last Admin: 08/31/18 10:50 Dose: Not Given Mupirocin (Bactroban Ointment) 0 gm TOP BID [facility] Last Admin: 08/31/18 11:26 Dose: Not Given Nicotine (Nicoderm Cq) 1 patch TD DAILY [facility] Last Admin: 08/31/18 10:48 Dose: 1 patch Ondansetron HCl (Zofran Inj) 4 mg IVP Q4H PRN PRN Reason: Nausea/Vomiting Pantoprazole Sodium (Protonix Ec Tab) 40 mg PO 0600 [facility] Last Admin: 08/31/18 05:33 Dose: 40 mg Polyethylene Glycol (Miralax) 17 gm PO DAILY [facility] Last Admin: 08/31/18 11:23 Dose: Not Given - Labs Labs: 08/31/18 07:20 08/31/18 07:20 PT 15.1 SECONDS (9.4-12.5) H 08/23/18 22:20 INR 1.36 08/23/18 22:20 APTT 27.9 Seconds (26.9-38.3) 08/23/18 22:20 - Constitutional Appears: Chronically Ill, Other (intubated, sedated) - Head Exam Head Exam: NORMAL INSPECTION - ENT Exam Additional comments: ET tube in place - Neck Exam Additional comments: right IJ TLC in place, intact, site clean - Respiratory Exam Respiratory Exam: Decreased Breath Sounds - Cardiovascular Exam Cardiovascular Exam: +S1, +S2 - GI/Abdominal Exam GI & Abdominal Exam: Soft. absent: Tenderness - Extremities Exam Additional comments: both feet with dressings in place Assessment and Plan - Assessment and Plan (Free Text) Plan: Assessment severe sepsis / shock (multifactorial) now with ventilator-dependent respiratory failure and acute renal failure due to bilateral lower lobe hospital-acquired p neumonia, with bilateral pleural effusions Infected left lower extremity wounds, R/O osteomyelitis, grew MRSA chronic back pain vertebral disc disease venous stasis dermatitis Plan switched IV Vancomycin to Zyvox yesterday and will also continue Merrem (day 3 of combination) - repeat blood cx negative so far, follow up sputum cx, PCT is 0.61 - Zyvox will also cover the MRSA in the foot awaiting MRI of the foot but patient is critically ill currently patient had thoracentesis on the right and fluid looks to be transudative - reviewed CXR today which is showing complete opacification of left hemithorax - patient for possible left sided thoracentesis follow up further plans of Podiatry will continue to monitor clinically overall prognosis is poor
--- NOTE | 2018-09-01 13:33 | PN ---
DATE: 09/01/2018 SUBJECTIVE: The patient was transferred yesterday to ICU after hypotension, persistent respiratory failure and hypoxemia. In the last 24 hours, the patient was intubated, placed on a ventilator support, had a right internal jugular triple-lumen catheter placed, had the right thoracentesis with removal of 1700 mL of pleural fluid. The patient at present is intubated in ICU bed 4. Overnight nurse's notes were reviewed. Overnight events were reviewed. PHYSICAL EXAMINATION VITAL SIGNS: T-max 98.4. Telemetry shows sinus rhythm with intermittent questionable atrial fibrillation. Blood pressure is 106/57, O2 sat is 100% on ventilator support of PEEP of 5, FiO2 100%, tidal volume 400. HEENT: Head: Normocephalic, atraumatic. HEENT examination shows positive ET tube and NG tube. Pinkish pale conjunctivae. Anicteric sclerae. No oropharyngeal lesion. NECK: No neck rigidity. Positive right internal jugular triple-lumen catheter noted. CARDIOVASCULAR: S1, S2, tachycardic rhythm. Complete decreased breath sounds at the left side. Positive rhonchi, right upper lung field. ABDOMEN: Soft. Positive bowel sound. No palpable hepatosplenomegaly. GENITALIA: Male. Positive Abrams catheter. Positive previous notations for sacral gluteal decubitus ulceration and posterior thigh decubitus ulceration noted. EXTREMITIES: Positive decreasing lymphedema of the lower extremity and positive dystrophic toenails noted. MUSCULOSKELETAL: As per the body mass index. NEUROLOGIC: Limited as the patient is intubated on a ventilator. The patient's gait examination, he is bedridden. PSYCHIATRIC: Not applicable. DIAGNOSTICS: 09/01, WBC count has gone up to 23.6, hemoglobin and hematocrit 10.7 and 36.2, platelets 174. Granulocytes; 84% segs, 9 bands. ABG this morning on 100% FiO2, PEEP of 5, tidal volume 400, pH of 7.28, pCO2 53, pO2 87, bicarb 25, saturation of 98.4. Abnormal labs are as follows: Sodium 130, BUN 37, creatinine up to 2.1. Troponin all three sets are negative. BNP is 17,800, total protein 5.5, albumin 2.1. EKG shows sinus rhythm, sinus tachycardia, paroxysmal atrial fibrillation, right bundle-branch block, left posterior fascicular block. Chest x-ray shows complete left lung whiteout and collapse and atelectasis. IMPRESSION AND PLAN 1. Ventilator-dependent respiratory failure. 2. Acute hypercapnic, hypoxemic respiratory failure with severe respiratory acidosis. 3. Probable systolic versus diastolic congestive heart failure. 4. Septic versus cardiogenic shock. 5. Sepsis with bilateral multilobar pneumonia. 6. Hypotension. 7. Refractory hypoxemia. 8. Leukocytosis with granulocytosis and bandemia. 9. Normocytic anemia. 10. Severe respiratory acidosis and hypoxemia. 11. Hyponatremia. 12. Acute kidney injury. 13. Protein malnutrition and hypoalbuminemia. 14. Large bilateral pleural effusion. 15. Status post right thoracentesis with removal of 1700 mL of pleural fluid. 16. Sinus tachycardia. 17. Left posterior fascicular block. 18. Right bundle-branch block. 19. Questionable paroxysmal atrial fibrillation. 20. Ventilator-dependent respiratory failure. 21. Possible complete left lung collapse versus atelectasis with mediastinal shift. 22. Acute hypercapnic hypoxic respiratory failure. 23. 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 24. Variable stage sacral gluteal decubitus ulceration and posterior thigh ulceration. 25. Bilateral lower extremity lymphedema, resolving. 26. Bilateral lower extremity venous stasis cellulitis and superficial wound infection with gram-negative rods and methicillin-resistant Staphylococcus aureus. 27. Dystrophic elongated toenails. 28. Severe xerosis of both feet. 29. Inotrope-dependent hypotension and questionable septic versus cardiogenic shock. 30. Gait dysfunction with severe deconditioning and possible functional quadriplegia. Plan at this time, the patient is to be continued in Intensive Care Unit. The patient will be continued on vent management. The patient has been ordered serial daily labs. CONSULTATION: Cardiology, Critical Care, Infectious Disease, Surgery, Podiatry, Interventional Radiology. Nephrology consultation has been requested. The patient's overall prognosis is extremely guarded to poor. Next we have been unable to locate the patient's next of kin. Overall, the patient will be continued on all the medications as per the MAR of today, which was reviewed. The patient will be maintained in ICU till complete stabilization. Time spent in the entire management, more than 35 minutes. Dictated and electronically signed, not read. Carlos Hernandez MD [facility] # [id number]
[2018-09-01] MEDS: Dakin's Topical 0.25%-Half Strength (480 ml) TOP SCH (14:00)
[2018-09-01 14:04] LABS: PH,URINE 5.5 (4.7-8.0); URINE BILIRUBIN NEGATIVE (NEGATIVE); URINE BLOOD TRACE-INTACT (NEGATIVE); URINE GLUCOSE (UA) NEGATIVE (NEGATIVE); URINE LEUKOCYTE ESTERASE NEGATIVE Leu/uL (NEGATIVE); URINE PROTEIN NEGATIVE mg/dL (<30 mg/dL); URINE UROBILINOGEN 0.2 E.U./dL (<1 E.U./dL)
[2018-09-01 14:06] LABS: URINE APPEARANCE CLEAR (CLEAR); URINE COLOR YELLOW (YELLOW)
[2018-09-01 14:10] LABS: OSMOLALITY,URINE 317 mosm/kg (300-1000)
[2018-09-01 14:11] LABS: URINE BACTERIA MOD /hpf; URINE WBC 0 - 2 /hpf (0-6)
[2018-09-01 14:12] LABS: URINE COARSE GRANULAR CAST TRACE /hpf
[2018-09-01] MEDS: Enoxaparin 40 mg Syringe SC SCH (16:18)
--- NOTE | 2018-09-01 19:18 | RAD ---
Date of service: 09/01/2018 HISTORY: sob COMPARISON: 09/01/2018 at 5:09 a.m. FINDINGS: LUNGS: There has been re-expansion of the left lung compared to the earlier examination. No further mediastinal shift. No pulmonary infiltrate. PLEURA: Small bilateral pleural effusion. No pneumothorax. CARDIOVASCULAR: ETT, NG tube unchanged. Right IJ central venous catheter unchanged. Normal cardiac size. No pulmonary vascular congestion. OSSEOUS STRUCTURES: No significant abnormalities. VISUALIZED UPPER ABDOMEN: Normal. OTHER FINDINGS: None. IMPRESSION: Re-expansion of left lung. Small bilateral pleural effusion. Lines and tubes unchanged
--- NOTE | 2018-09-01 20:55 | PN ---
DATE: 09/01/2018 CARDIOLOGY FOLLOWUP SUBJECTIVE: The patient is intubated with a marked A-a gradient. PHYSICAL EXAMINATION: VITAL SIGNS: Blood pressure is 99, systolic; heart rates in the 70s. GENERAL: The patient is currently on IV pressors. NECK: Negative JVD. LUNGS: Decreased breath sounds bilaterally. HEART: S1 and S2. EXTREMITIES: Without change. LABORATORY DATA: Hemoglobin is 10.7, white count is up to 23,000. BUN and creatinine are 37 and 2.1. ProBNP is greater than 17,000. IMPRESSION: 1. Large pleural effusion. 2. Respiratory failure. 3. Pneumonia. 4. Hypotension. 5. Prerenal azotemia. 6. Cellulitis to the lower extremities. Given these findings, I do not believe the patient's hypotension is due to poor left ventricular function, and his ejection fraction is 52%. He has severe pulmonary hypertension. I do not believe dobutamine would be helpful for his hemodynamics. Thoracentesis will be necessary to help his oxygenation. Jero Salamanca MD
[2018-09-02] MEDS: Dexmedetomidine 400mcg/100mL 400 MCG/100 ML BOTTLE IV PRN ×3 (00:47→19:25)
[2018-09-02] MEDS: Acetylcysteine 20% Inhal Soln (4ml) IH SCH ×4 (02:35→20:13)
[2018-09-02] MEDS: Levalbuterol 0.63 MG/3 ML Inhal Soln UD IH SCH ×4 (02:35→20:13)
[2018-09-02 06:25] LABS: BASO # 0.02 K/mm3 (0.0-2.0); BASO % 0.2 % (0.0-3.0); EOS # 0.8 (0.0-0.7); EOS % 6.3 % (1.5-5.0); LYMPH # 0.6 (1.2-3.4); LYMPH % 5.1 % (22.0-35.0); MEAN CELL VOLUME 88.5 fl (80.0-105.0); MEAN CORPUSCULAR HEMOGLOBIN 26.8 pg (25.0-35.0); MEAN CORPUSCULAR HGB CONC 30.3 g/dl (31.0-37.0); MEAN PLATELET VOLUME 11.3 fl (7.0-11.0); MONO # 0.3 (0.1-0.6); MONO % 2.1 % (1.0-6.0); RBC 3.73 10^6/uL (3.5-6.1); RED CELL DISTRIBUTION WIDTH 14.6 % (11.5-14.5); WHITE BLOOD COUNT 12.5 10^3/uL (4.5-11.0)
[2018-09-02 06:58] LABS: B-TYPE NATRIURETIC PEPTIDE 11200 pg/mL (0-450); TROPONIN I < 0.01 ng/mL
--- NOTE | 2018-09-02 07:13 | CP.CCUPN ---
<Augusto Zimmerman - Last Filed: 09/02/18 10:10> CCU Subjective - Physician Review Subjective (Free Text): 09/01/18 12:01 Augusto Zimmerman, PGY-1 ICU Progress Note for Dr. Velázquez: Pt was seen and examined this AM by ICU team. Overnight the pt had no acute issues. Pt is currently intubated with central line in place. Last night pt was able to be weaned off of levophed, holding pressures well today. Pt is intubated and sedated, therefore unable to asses ROS. CCU Objective - Vital Signs / Intake & Output Vital Signs (Last 4 hours): Vital Signs Temp Pulse BP Pulse Ox 09/02/18 06:20 96.3 F L 91 H 99 09/02/18 06:15 96.3 F L 94 H 119/54 L 99 09/02/18 06:10 96.1 F L 90 99 09/02/18 06:00 96.3 F L 89 117/51 L 99 09/02/18 05:50 96.3 F L 85 99 09/02/18 05:45 96.3 F L 72 115/52 L 99 09/02/18 05:40 96.1 F L 87 99 09/02/18 05:30 96.3 F L 83 117/48 L 99 09/02/18 05:20 95.9 F L 86 99 09/02/18 05:15 96.1 F L 89 117/49 L 99 09/02/18 05:10 95.9 F L 88 99 09/02/18 05:00 96.1 F L 86 118/53 L 99 09/02/18 04:50 96.1 F L 89 99 09/02/18 04:45 96.1 F L 88 116/49 L 99 09/02/18 04:40 96.1 F L 90 99 09/02/18 04:30 95.9 F L 90 117/52 L 99 09/02/18 04:20 95.9 F L 90 99 09/02/18 04:15 95.9 F L 90 120/55 L 99 09/02/18 04:10 95.9 F L 90 99 09/02/18 04:00 95.9 F L 89 120/49 L 99 09/02/18 03:50 95.9 F L 86 98 09/02/18 03:45 95.9 F L 82 120/57 L 98 09/02/18 03:40 95.9 F L 82 98 09/02/18 03:30 95.9 F L 82 122/56 L 98 09/02/18 03:20 95.9 F L 84 99 09/02/18 03:15 95.9 F L 77 120/52 L 99 09/02/18 03:10 95.9 F L 83 99 Intake and Output (Last 8hrs): Intake & Output 09/01/18 09/02/18 09/02/18 22:59 06:59 14:59 Intake Total 1150 210 Output Total 350 400 Balance 800 -190 Intake: IV 1150 210 Right Internal Jugular 985 Output: Urine 350 400 2-way Urethral 350 400 Stool 0 - Physical Exam Physical Exam Limitations: Positive for: Other (Pt intubated and sedated) Head: Positive for: Atraumatic, Normocephalic Pupils: Positive for: PERRL Extroacular Muscles: Positive for: EOMI Conjunctiva: Positive for: Normal Mouth: Positive for: Moist Mucous Membranes, Other (ETT secured) Neck: Positive for: Normal Range of Motion Respiratory/Chest: Positive for: Decreased Breath Sounds, Rales (present in the L lung, only anterior lung feilds could be assessed due to pt being intubated.), Other (Pt is intubated). Negative for: Respiratory Distress, Accessory Muscle Use Cardiovascular: Positive for: Normal S1, S2, Tachycardic. Negative for: Murmurs Abdomen: Negative for: Tenderness, Distention, Peritoneal Signs Back: Positive for: Decubitus Ulcer (Sacral) Upper Extremity: Positive for: Normal Inspection. Negative for: Cyanosis, Edema Lower Extremity: Positive for: Normal Inspection, Normal ROM, Other (2 large skin decubiti on the posterior thighs bilaterally, both infected with surrounding erythema) Neurological: Positive for: Other (Pt is sedated due to intubation) Skin: Positive for: Warm, Dry, Normal Color. Negative for: Rashes Psychiatric: Positive for: Other (sedated due to intubation) - Medications Active Medications: Active Medications Generic Name Dose Route Start Last Admin Trade Name Freq PRN Reason Stop Dose Admin Acetaminophen 650 mg 08/24/18 00:04 08/30/18 01:53 Tylenol 325mg Tab PO 650 mg Q6 PRN Administration TEMP>=99.5F Acetaminophen 650 mg 08/24/18 00:04 Tylenol 650 Mg Supp RC Q6H PRN TEMP>=99.5F Acetylcysteine 4 ml 08/24/18 09:00 09/02/18 02:35 Acetylcysteine 20% IH 4 ml [id number] CASSY Administration Bisacodyl 10 mg 08/28/18 12:39 Dulcolax RC HS PRN Constipation Budesonide 0.5 mg 09/02/18 08:00 Pulmicort Respules IH [id number] CASSY Collagenase 0 gm 08/25/18 10:00 09/01/18 10:00 Santyl TOP 1 appl DAILY CASSY Administration Cyanocobalamin 1,000 mcg 08/26/18 15:00 09/01/18 09:01 Vitamin B12 1000 Mcg/Ml Inj IM 09/04/18 10:01 1,000 mcg DAILY CASSY Administration Enoxaparin Sodium 40 mg 08/31/18 10:00 09/01/18 16:18 Lovenox SC 40 mg DAILY CASSY Administration Protocol Ergocalciferol 1 cap 08/26/18 15:00 08/26/18 15:49 Drisdol 50,000 Intl Units Cap PO 1 cap Q7D CASSY Administration Folic Acid 1 mg 08/26/18 15:00 09/01/18 09:04 Folic Acid PO 1 mg DAILY CASSY Administration Hydrocortisone Sodium Succinate 50 mg 09/01/18 12:00 09/02/18 05:51 Solu-Cortef IVP 50 mg Q6 CASSY Administration Meropenem 1 gm in 50 mls @ 100 mls/hr 08/31/18 10:00 09/01/18 22:44 Merrem Iv 1 Gm Premix IVPB 09/07/18 10:01 100 mls/hr Q12 CASSY Administration Protocol Linezolid 600 mg in 300 mls @ 200 mls/hr 08/31/18 10:00 09/01/18 22:44 Zyvox 600mg/300ml D5w IVPB 09/07/18 10:01 200 mls/hr Q12 CASSY Administration Protocol NOREPINEPHRINE BIT/0.9 % NACL 4 mg in 250 mls @ 15 mls/hr 08/31/18 09:26 09/02/18 03:00 Levophed 4 Mg/ 250 Ml Ns Premixed IV 0 mcg/min .[id number] PRN 0 mls/hr TITRATE PER MD ORDER Titration Protocol 4 MCG/MIN Dexmedetomidine HCl 400 mcg in 100 mls @ 3.856 mls/hr 08/31/18 16:50 09/02/18 00:47 Precedex 400mcg/100ml IV 0.8 mcg/kg/hr .Q24H PRN 15.422 mls/hr Sedation Administration Protocol 0.2 MCG/KG/HR Fentanyl Citrate 1,000 mcg in 100 mls @ 5 mls/hr 09/01/18 10:23 Fentanyl Citrate/Sodium Chloride 1 Mg/100 Ml IV .Q20H PRN TITRATE PER MD ORDER Protocol 50 MCG/HR Dobutamine HCl/Dextrose 500 mg in 250 mls @ 5.783 mls/hr 09/01/18 11:23 09/01/18 11:45 Dobutamine/Dextrose 5% 500mg/250ml IV 2.5 mcg/kg/min .Q24H PRN 5.783 mls/hr TITRATE PER PROTOCOL Administration Protocol 2.5 MCG/KG/MIN Lactic Acid 0 ea 08/28/18 11:45 09/01/18 09:03 Lac-Hydrin 12% Cream (140 G) TOP 1 applic DAILY CASSY Administration Levalbuterol HCl 0.63 mg 08/24/18 09:00 09/02/18 02:35 Xopenex IH 0.63 mg [id number] CASSY Administration Lorazepam 1 mg 08/25/18 21:21 Ativan IVP Q6H PRN Anxiety Protocol Metoprolol Tartrate 50 mg 08/30/18 09:00 08/31/18 10:03 Lopressor PO Not Given Q8H CASSY Mupirocin 0 gm 08/25/18 10:00 09/01/18 17:53 Bactroban Ointment TOP 1 appl BID CASSY Administration Nicotine 1 patch 08/24/18 10:00 09/01/18 09:00 Nicoderm Cq TD 1 patch DAILY CASSY Administration Ondansetron HCl 4 mg 08/24/18 00:04 Zofran Inj IVP Q4H PRN Nausea/Vomiting Pantoprazole Sodium 40 mg 09/02/18 10:00 Protonix Inj IVP DAILY CASSY Polyethylene Glycol 17 gm 08/31/18 10:00 09/01/18 09:24 Miralax PO 17 gm DAILY CASSY Administration Sodium Hypochlorite 0 ml 09/01/18 13:00 09/01/18 14:00 Dakins Solution 0.25% TOP 1 applic DAILY CASSY Administration - Patient Studies Lab Studies: Microbiology Studies 08/28/18 22:33 Blood Culture - Preliminary Blood NO GROWTH AFTER 4 DAYS 08/28/18 22:00 Blood Culture - Preliminary Blood NO GROWTH AFTER 4 DAYS 08/31/18 08:50 MRSA Culture (Admit) - Final Naris MRSA NOT DETECTED 08/30/18 12:50 Blood Culture - Preliminary Blood-Venous NO GROWTH AFTER 48 HOURS 08/30/18 11:20 Blood Culture - Preliminary Blood-Venous NO GROWTH AFTER 48 HOURS 08/30/18 12:00 Gram Stain - Final Sputum Induced Sputum Culture - Final NORMAL ORAL AJIT Lab Studies 09/02/18 09/02/18 09/01/18 Range/Units 06:00 06:00 15:20 WBC 12.5 H D (4.5-11.0) 10^3/uL RBC 3.73 (3.5-6.1) 10^6/uL Hgb 10.0 L (14.0-18.0) g/dL Hct 33.0 L (42.0-52.0) % MCV 88.5 (80.0-105.0) fl MCH 26.8 (25.0-35.0) pg MCHC 30.3 L (31.0-37.0) g/dl RDW 14.6 H (11.5-14.5) % Plt Count 143 (120.0-450.0) 10^3/uL MPV 11.3 H (7.0-11.0) fl Neut % (Auto) 86.3 H (50.0-68.0) % Lymph % (Auto) 5.1 L (22.0-35.0) % [place] % (Auto) 2.1 (1.0-6.0) % Eos % (Auto) 6.3 H (1.5-5.0) % Baso % (Auto) 0.2 (0.0-3.0) % Lymph # (Auto) 0.6 L (1.2-3.4) [place] # (Auto) 0.3 (0.1-0.6) Eos # (Auto) 0.8 H (0.0-0.7) Baso # (Auto) 0.02 (0.0-2.0) K/mm3 Absolute Neuts (auto) 10.80 H (1.4-6.5) Sodium (132-148) mmol/L Potassium (3.6-5.0) mmol/L Chloride (98-107) mmol/L Carbon Dioxide (21-33) mmol/L Anion Gap (10-20) BUN (7-21) mg/dL Creatinine (0.8-1.5) mg/dl Est GFR ( Amer) Est GFR (Non-Af Amer) Random Glucose (70-110) mg/dL Serum Osmolality (272-300) mosm/kg Calcium (8.4-10.5) mg/dL Magnesium (1.7-2.2) mg/dL Total Bilirubin (0.2-1.3) mg/dL Direct Bilirubin (0.0-0.4) mg/dL AST (17-59) U/L ALT (7-56) U/L Alkaline Phosphatase (38-126) U/L Total Creatine Kinase (35-230) U/L Troponin I < 0.01 ng/mL NT-Pro-B Natriuret Pep 02968 H (0-450) pg/mL Total Protein (5.8-8.3) g/dL Albumin (3.0-4.8) g/dL Globulin gm/dL Albumin/Globulin Ratio (1.1-1.8) Urine Color (YELLOW) Urine Appearance (CLEAR) Urine pH (4.7-8.0) Ur Specific [place] (1.005-1.035) Urine Protein (<30 mg/dL) mg/dL Urine Glucose (UA) (NEGATIVE) mg/dL Urine Ketones (NEGATIVE) mg/dL Urine Blood (NEGATIVE) Urine Nitrate (NEGATIVE) Urine Bilirubin (NEGATIVE) Urine Urobilinogen (<1 E.U./dL) E.U./dL Ur Leukocyte Esterase (NEGATIVE) [place]/uL Urine RBC (0-2) /hpf Urine WBC (0-6) /hpf Ur Epithelial Cells (0-5) /hpf Urine Bacteria (NONE) /hpf Coarse Granular Casts (NONE) /hpf Urine Osmolality (300-1000) mosm/kg U Random Total Protein 22 mg/L Ur Random Sodium meq/L 09/01/18 09/01/18 09/01/18 Range/Units 13:30 13:30 13:20 WBC (4.5-11.0) 10^3/uL RBC (3.5-6.1) 10^6/uL Hgb (14.0-18.0) g/dL Hct (42.0-52.0) % MCV (80.0-105.0) fl MCH (25.0-35.0) pg MCHC (31.0-37.0) g/dl RDW (11.5-14.5) % Plt Count (120.0-450.0) 10^3/uL MPV (7.0-11.0) fl Neut % (Auto) (50.0-68.0) % Lymph % (Auto) (22.0-35.0) % [place] % (Auto) (1.0-6.0) % Eos % (Auto) (1.5-5.0) % Baso % (Auto) (0.0-3.0) % Lymph # (Auto) (1.2-3.4) [place] # (Auto) (0.1-0.6) Eos # (Auto) (0.0-0.7) Baso # (Auto) (0.0-2.0) K/mm3 Absolute Neuts (auto) (1.4-6.5) Sodium (132-148) mmol/L Potassium (3.6-5.0) mmol/L Chloride (98-107) mmol/L Carbon Dioxide (21-33) mmol/L Anion Gap (10-20) BUN (7-21) mg/dL Creatinine (0.8-1.5) mg/dl Est GFR ( Amer) Est GFR (Non-Af Amer) Random Glucose (70-110) mg/dL Serum Osmolality 286 (272-300) mosm/kg Calcium (8.4-10.5) mg/dL Magnesium (1.7-2.2) mg/dL Total Bilirubin (0.2-1.3) mg/dL Direct Bilirubin (0.0-0.4) mg/dL AST (17-59) U/L ALT (7-56) U/L Alkaline Phosphatase (38-126) U/L Total Creatine Kinase (35-230) U/L Troponin I ng/mL NT-Pro-B Natriuret Pep (0-450) pg/mL Total Protein (5.8-8.3) g/dL Albumin (3.0-4.8) g/dL Globulin gm/dL Albumin/Globulin Ratio (1.1-1.8) Urine Color Yellow (YELLOW) Urine Appearance Clear (CLEAR) Urine pH 5.5 (4.7-8.0) Ur Specific [place] 1.015 (1.005-1.035) Urine Protein Negative (<30 mg/dL) mg/dL Urine Glucose (UA) Negative (NEGATIVE) mg/dL Urine Ketones Negative (NEGATIVE) mg/dL Urine Blood Trace-intact H (NEGATIVE) Urine Nitrate Negative (NEGATIVE) Urine Bilirubin Negative (NEGATIVE) Urine Urobilinogen 0.2 (<1 E.U./dL) E.U./dL Ur Leukocyte Esterase Negative (NEGATIVE) [place]/uL Urine RBC 1 - 3 H (0-2) /hpf Urine WBC 0 - 2 (0-6) /hpf Ur Epithelial Cells None (0-5) /hpf Urine Bacteria Mod (NONE) /hpf Coarse Granular Casts Trace (NONE) /hpf Urine Osmolality 317 (300-1000) mosm/kg U Random Total Protein mg/L Ur Random Sodium 107 meq/L 09/01/18 Range/Units 05:40 WBC (4.5-11.0) 10^3/uL RBC (3.5-6.1) 10^6/uL Hgb (14.0-18.0) g/dL Hct (42.0-52.0) % MCV (80.0-105.0) fl MCH (25.0-35.0) pg MCHC (31.0-37.0) g/dl RDW (11.5-14.5) % Plt Count (120.0-450.0) 10^3/uL MPV (7.0-11.0) fl Neut % (Auto) (50.0-68.0) % Lymph % (Auto) (22.0-35.0) % [place] % (Auto) (1.0-6.0) % Eos % (Auto) (1.5-5.0) % Baso % (Auto) (0.0-3.0) % Lymph # (Auto) (1.2-3.4) [place] # (Auto) (0.1-0.6) Eos # (Auto) (0.0-0.7) Baso # (Auto) (0.0-2.0) K/mm3 Absolute Neuts (auto) (1.4-6.5) Sodium 130 L (132-148) mmol/L Potassium 4.6 (3.6-5.0) mmol/L Chloride 97 L (98-107) mmol/L Carbon Dioxide 28 (21-33) mmol/L Anion Gap 10 (10-20) BUN 37 H (7-21) mg/dL Creatinine 2.1 H (0.8-1.5) mg/dl Est GFR ( Amer) 38 Est GFR (Non-Af Amer) 31 Random Glucose 115 H (70-110) mg/dL Serum Osmolality (272-300) mosm/kg Calcium 7.8 L (8.4-10.5) mg/dL Magnesium 1.8 (1.7-2.2) mg/dL Total Bilirubin 0.5 (0.2-1.3) mg/dL Direct Bilirubin 0.4 (0.0-0.4) mg/dL AST 28 (17-59) U/L ALT 10 (7-56) U/L Alkaline Phosphatase 93 (38-126) U/L Total Creatine Kinase < 20 L (35-230) U/L Troponin I < 0.01 D ng/mL NT-Pro-B Natriuret Pep 23470 H (0-450) pg/mL Total Protein 5.5 L (5.8-8.3) g/dL Albumin 2.1 L (3.0-4.8) g/dL Globulin 3.3 gm/dL Albumin/Globulin Ratio 0.6 L (1.1-1.8) Urine Color (YELLOW) Urine Appearance (CLEAR) Urine pH (4.7-8.0) Ur Specific [place] (1.005-1.035) Urine Protein (<30 mg/dL) mg/dL Urine Glucose (UA) (NEGATIVE) mg/dL Urine Ketones (NEGATIVE) mg/dL Urine Blood (NEGATIVE) Urine Nitrate (NEGATIVE) Urine Bilirubin (NEGATIVE) Urine Urobilinogen (<1 E.U./dL) E.U./dL Ur Leukocyte Esterase (NEGATIVE) [place]/uL Urine RBC (0-2) /hpf Urine WBC (0-6) /hpf Ur Epithelial Cells (0-5) /hpf Urine Bacteria (NONE) /hpf Coarse Granular Casts (NONE) /hpf Urine Osmolality (300-1000) mosm/kg U Random Total Protein mg/L Ur Random Sodium meq/L Laboratory Results - last 24 hr 09/01/18 09/01/18 09/01/18 05:40 13:20 13:30 WBC RBC Hgb Hct MCV MCH MCHC RDW Plt Count MPV Neut % (Auto) Lymph % (Auto) [place] % (Auto) Eos % (Auto) Baso % (Auto) Lymph # (Auto) [place] # (Auto) Eos # (Auto) Baso # (Auto) Absolute Neuts (auto) Sodium 130 L Potassium 4.6 Chloride 97 L Carbon Dioxide 28 Anion Gap 10 BUN 37 H Creatinine 2.1 H Est GFR ( Amer) 38 Est GFR (Non-Af Amer) 31 Random Glucose 115 H Serum Osmolality 286 Calcium 7.8 L Magnesium 1.8 Total Bilirubin 0.5 Direct Bilirubin 0.4 AST 28 ALT 10 Alkaline Phosphatase 93 Total Creatine Kinase < 20 L Troponin I < 0.01 D NT-Pro-B Natriuret Pep 43807 H Total Protein 5.5 L Albumin 2.1 L Globulin 3.3 Albumin/Globulin Ratio 0.6 L Urine Color Urine Appearance Urine pH Ur Specific [place] Urine Protein Urine Glucose (UA) Urine Ketones Urine Blood Urine Nitrate Urine Bilirubin Urine Urobilinogen Ur Leukocyte Esterase Urine RBC Urine WBC Ur Epithelial Cells Urine Bacteria Coarse Granular Casts Urine Osmolality 317 U Random Total Protein Ur Random Sodium 107 09/01/18 09/01/18 09/02/18 13:30 15:20 06:00 WBC 12.5 H D RBC 3.73 Hgb 10.0 L Hct 33.0 L MCV 88.5 MCH 26.8 MCHC 30.3 L RDW 14.6 H Plt Count 143 MPV 11.3 H Neut % (Auto) 86.3 H Lymph % (Auto) 5.1 L [place] % (Auto) 2.1 Eos % (Auto) 6.3 H Baso % (Auto) 0.2 Lymph # (Auto) 0.6 L [place] # (Auto) 0.3 Eos # (Auto) 0.8 H Baso # (Auto) 0.02 Absolute Neuts (auto) 10.80 H Sodium Potassium Chloride Carbon Dioxide Anion Gap BUN Creatinine Est GFR ( Amer) Est GFR (Non-Af Amer) Random Glucose Serum Osmolality Calcium Magnesium Total Bilirubin Direct Bilirubin AST ALT Alkaline Phosphatase Total Creatine Kinase Troponin I NT-Pro-B Natriuret Pep Total Protein Albumin Globulin Albumin/Globulin Ratio Urine Color Yellow Urine Appearance Clear Urine pH 5.5 Ur Specific [place] 1.015 Urine Protein Negative Urine Glucose (UA) Negative Urine Ketones Negative Urine Blood Trace-intact H Urine Nitrate Negative Urine Bilirubin Negative Urine Urobilinogen 0.2 Ur Leukocyte Esterase Negative Urine RBC 1 - 3 H Urine WBC 0 - 2 Ur Epithelial Cells None Urine Bacteria Mod Coarse Granular Casts Trace Urine Osmolality U Random Total Protein 22 Ur Random Sodium 09/02/18 06:00 WBC RBC Hgb Hct MCV MCH MCHC RDW Plt Count MPV Neut % (Auto) Lymph % (Auto) [place] % (Auto) Eos % (Auto) Baso % (Auto) Lymph # (Auto) [place] # (Auto) Eos # (Auto) Baso # (Auto) Absolute Neuts (auto) Sodium Potassium Chloride Carbon Dioxide Anion Gap BUN Creatinine Est GFR ( Amer) Est GFR (Non-Af Amer) Random Glucose Serum Osmolality Calcium Magnesium Total Bilirubin Direct Bilirubin AST ALT Alkaline Phosphatase Total Creatine Kinase Troponin I < 0.01 NT-Pro-B Natriuret Pep 32126 H Total Protein Albumin Globulin Albumin/Globulin Ratio Urine Color Urine Appearance Urine pH Ur Specific [place] Urine Protein Urine Glucose (UA) Urine Ketones Urine Blood Urine Nitrate Urine Bilirubin Urine Urobilinogen Ur Leukocyte Esterase Urine RBC Urine WBC Ur Epithelial Cells Urine Bacteria Coarse Granular Casts Urine Osmolality U Random Total Protein Ur Random Sodium Radiology Impressions: Radiology Impressions Chest X-Ray 09/01/18 06:00 IMPRESSION: Complete opacification of the left hemithorax. Mediastinal shift to the left. Chest X-Ray 09/01/18 16:00 IMPRESSION: Re-expansion of left lung. Small bilateral pleural effusion. Lines and tubes unchanged EKG/Cardiology Studies: Cardiology / EKG Studies 09/01/18 07:00 ELECTROCARDIOGRAM DAILY Comment: Reason For Exam: CHF 09/02/18 07:00 ELECTROCARDIOGRAM DAILY Comment: Reason For Exam: CHF 09/03/18 07:00 ELECTROCARDIOGRAM DAILY Comment: Reason For Exam: CHF Review of Systems - Review of Systems Systems not reviewed;Unavailable: Intubated (and sedated) Critical Care Progress Note - Nutrition Nutrition: Nutrition Category Date Time Status NPO Diet [DIET] Diets 09/01/18 Lunch Ordered Assessment/Plan - Assessment and Plan (Free Text) Assessment: Pt is a 68 yo M with pmhx of chronic back pain and vertebral disc disease who presented to [facility] for complaints of b/l foot pain and back pain. ICU is consulted for management of pts acute hypercapnic respiratory failure and AMS. Pt had R thoracentesis done 08/31, pt was also intubated due to continued resp acidosis even on 100% FiO2 on Bipap. Pt is now weaned off of levophed, still on dobutamine and precedex. Plan: Neuro: - Pt is intubated at this time and sedated. Pulm: Acute hypercapnic resp failure leading to respiratory acidosis w/ chronic incomplete compensatory resp alkalosis: - Pt was intubated due to persistent resp acidosis. - Fentanyl drip added on to precedex for sedation. - Likely 2/2 CHF exacerbation vs PNA vs mucous plug unlikely PE due to r/o by CTA - CXR shows improvement of L sided effusion as well as residual R sided effusion- read by me - Echo showed mildly [place] [address] - Will give pt lasix 40 IVP - Abrams - Strict I/Os - Daily weight PNA vs CHF: - Procal elevated - CXR and echo resulted noted above - ID on board, recs appreciated: Merrem q8 and vanc day 3 of combination tx - Repeat blood, urine and sputum cultures Cardio: Shock: Septic vs cardiogenic: - Pt was able to be weaned off of levophed, cont dobutamine - Will try lasix for diuresis for suspected cardiogenic shock - Thoracentesis done 08/31: 1700ml out - Started on stress dose steroids - Solu-cortef 50q8 - Will cont to monitor - Goal is MAP > 65 Nephro: Pre-renal Azotemia: - BUN/Cr = 41/2.2 - UA, urine sodium, urine cl, urine osms, urine protein and serum osms ordered - Will cont to monitor - Will give lasix, now due to fluid overload and respiratory compromise but will limit other nephrotoxic agents - Nephro consulted, recs appreciated GI: - NPO - NGT - Protonix MSK: B/l foot cellulitis - MRSA (+): - Pt on multipodus boots - ID on board: IV Vanc day 8 - Pt is refusing MRI for osteo r/o Stage 3 Sacral decub ulcer: - Pt refuses MRI - Santyl and local wound care - Cont Vanc per ID recs DVT PPx: Lovenox 40 Pt seen and discussed with Dr. Melania Zimmerman, PGY-1 <Joce Velázquez - Last Filed: 09/02/18 12:26> CCU Objective - Vital Signs / Intake & Output Vital Signs (Last 4 hours): Vital Signs BP 09/02/18 10:24 103/50 L Intake and Output (Last 8hrs): Intake & Output 09/01/18 09/02/18 09/02/18 22:59 06:59 14:59 Intake Total 1150 210 Output Total 350 400 Balance 800 -190 Intake: IV 1150 210 Right Internal Jugular 985 Output: Urine 350 400 2-way Urethral 350 400 Stool 0 - Medications Active Medications: Active Medications Generic Name Dose Route Start Last Admin Trade Name Freq PRN Reason Stop Dose Admin Acetaminophen 650 mg 08/24/18 00:04 08/30/18 01:53 Tylenol 325mg Tab PO 650 mg Q6 PRN Administration TEMP>=99.5F Acetaminophen 650 mg 08/24/18 00:04 Tylenol 650 Mg Supp RC Q6H PRN TEMP>=99.5F Acetylcysteine 4 ml 08/24/18 09:00 09/02/18 07:31 Acetylcysteine 20% IH 4 ml [id number] CASSY Administration Bisacodyl 10 mg 08/28/18 12:39 Dulcolax RC HS PRN Constipation Budesonide 0.5 mg 09/02/18 08:00 09/02/18 07:31 Pulmicort Respules IH 0.5 mg [id number] CASSY Administration Collagenase 0 gm 08/25/18 10:00 09/02/18 10:28 Santyl TOP 1 appl DAILY CASSY Administration Cyanocobalamin 1,000 mcg 08/26/18 15:00 09/02/18 10:25 Vitamin B12 1000 Mcg/Ml Inj IM 09/04/18 10:01 1,000 mcg DAILY CASSY Administration Enoxaparin Sodium 40 mg 08/31/18 10:00 09/02/18 10:22 Lovenox SC 40 mg DAILY CASSY Administration Protocol Ergocalciferol 1 cap 08/26/18 15:00 08/26/18 15:49 Drisdol 50,000 Intl Units Cap PO 1 cap Q7D CASSY Administration Folic Acid 1 mg 08/26/18 15:00 09/02/18 10:29 Folic Acid PO 1 mg DAILY CASSY Administration Furosemide 40 mg 09/02/18 10:00 09/02/18 10:24 Lasix IVP 40 mg DAILY CASSY Administration Hydrocortisone Sodium Succinate 50 mg 09/02/18 14:00 Solu-Cortef IVP Q8 CASSY Meropenem 1 gm in 50 mls @ 100 mls/hr 08/31/18 10:00 09/02/18 10:22 Merrem Iv 1 Gm Premix IVPB 09/07/18 10:01 100 mls/hr Q12 CASSY Administration Protocol Linezolid 600 mg in 300 mls @ 200 mls/hr 08/31/18 10:00 09/02/18 10:27 Zyvox 600mg/300ml D5w IVPB 09/07/18 10:01 200 mls/hr Q12 CASSY Administration Protocol NOREPINEPHRINE BIT/0.9 % NACL 4 mg in 250 mls @ 15 mls/hr 08/31/18 09:26 09/02/18 03:00 Levophed 4 Mg/ 250 Ml Ns Premixed IV 0 mcg/min .[id number] PRN 0 mls/hr TITRATE PER MD ORDER Titration Protocol 4 MCG/MIN Dexmedetomidine HCl 400 mcg in 100 mls @ 3.856 mls/hr 08/31/18 16:50 09/02/18 00:47 Precedex 400mcg/100ml IV 0.8 mcg/kg/hr .Q24H PRN 15.422 mls/hr Sedation Administration Protocol 0.2 MCG/KG/HR Fentanyl Citrate 1,000 mcg in 100 mls @ 5 mls/hr 09/01/18 10:23 Fentanyl Citrate/Sodium Chloride 1 Mg/100 Ml IV .Q20H PRN TITRATE PER MD ORDER Protocol 50 MCG/HR Dobutamine HCl/Dextrose 500 mg in 250 mls @ 5.783 mls/hr 09/01/18 11:23 09/01/18 11:45 Dobutamine/Dextrose 5% 500mg/250ml IV 2.5 mcg/kg/min .Q24H PRN 5.783 mls/hr TITRATE PER PROTOCOL Administration Protocol 2.5 MCG/KG/MIN Lactic Acid 0 ea 08/28/18 11:45 09/02/18 10:29 Lac-Hydrin 12% Cream (140 G) TOP 1 applic DAILY CASSY Administration Levalbuterol HCl 0.63 mg 08/24/18 09:00 09/02/18 07:31 Xopenex IH 0.63 mg [id number] CASSY Administration Lorazepam 1 mg 08/25/18 21:21 09/02/18 03:35 Ativan IVP 1 mg Q6H PRN Administration Anxiety Protocol Metoprolol Tartrate 50 mg 08/30/18 09:00 08/31/18 10:03 Lopressor PO Not Given Q8H CASSY Mupirocin 0 gm 08/25/18 10:00 09/01/18 17:53 Bactroban Ointment TOP 1 appl BID CASSY Administration Nicotine 1 patch 08/24/18 10:00 09/02/18 10:23 Nicoderm Cq TD 1 patch DAILY CASSY Administration Ondansetron HCl 4 mg 08/24/18 00:04 Zofran Inj IVP Q4H PRN Nausea/Vomiting Pantoprazole Sodium 40 mg 09/02/18 10:00 09/02/18 10:25 Protonix Inj IVP 40 mg DAILY CASSY Administration Polyethylene Glycol 17 gm 08/31/18 10:00 09/02/18 10:31 Miralax PO 17 gm DAILY CASSY Administration Sodium Hypochlorite 0 ml 09/01/18 13:00 09/01/18 14:00 Dakins Solution 0.25% TOP 1 applic DAILY CASSY Administration - Patient Studies Lab Studies: Microbiology Studies 08/30/18 11:20 Blood Culture - Preliminary Blood-Venous NO GROWTH AFTER 3 DAYS 08/31/18 21:48 Urine Culture - Final Urine,Abrams No Growth (<1,000 CFU/ML) 08/28/18 22:33 Blood Culture - Preliminary Blood NO GROWTH AFTER 4 DAYS 08/28/18 22:00 Blood Culture - Preliminary Blood NO GROWTH AFTER 4 DAYS 08/31/18 08:50 MRSA Culture (Admit) - Final Naris MRSA NOT DETECTED 08/30/18 12:50 Blood Culture - Preliminary Blood-Venous NO GROWTH AFTER 48 HOURS 08/30/18 12:00 Gram Stain - Final Sputum Induced Sputum Culture - Final NORMAL ORAL AJIT Lab Studies 09/02/18 09/02/18 09/02/18 Range/Units 08:00 06:00 06:00 WBC 12.5 H D (4.5-11.0) 10^3/uL RBC 3.73 (3.5-6.1) 10^6/uL Hgb 10.0 L (14.0-18.0) g/dL Hct 33.0 L (42.0-52.0) % MCV 88.5 (80.0-105.0) fl MCH 26.8 (25.0-35.0) pg MCHC 30.3 L (31.0-37.0) g/dl RDW 14.6 H (11.5-14.5) % Plt Count 143 (120.0-450.0) 10^3/uL MPV 11.3 H (7.0-11.0) fl Neut % (Auto) 86.3 H (50.0-68.0) % Lymph % (Auto) 5.1 L (22.0-35.0) % [place] % (Auto) 2.1 (1.0-6.0) % Eos % (Auto) 6.3 H (1.5-5.0) % Baso % (Auto) 0.2 (0.0-3.0) % Lymph # (Auto) 0.6 L (1.2-3.4) [place] # (Auto) 0.3 (0.1-0.6) Eos # (Auto) 0.8 H (0.0-0.7) Baso # (Auto) 0.02 (0.0-2.0) K/mm3 Absolute Neuts (auto) 10.80 H (1.4-6.5) pCO2 41 (35-45) mm/Hg pO2 65.0 L (80-100) mm/Hg HCO3 27.8 (21-28) mmol/L ABG pH 7.44 (7.35-7.45) ABG Total CO2 29.1 H (22-28) mmol.L ABG O2 Saturation 95.2 (95-98) % ABG O2 Content 13.8 L (15-23) ML/dl ABG Base Excess 3.3 H (-2.0-3.0) mmol/L ABG Hemoglobin 10.6 L (11.7-17.4) g/dL ABG Carboxyhemoglobin 1.5 (0.5-1.5) % POC ABG HHb (Measured) 4.7 (0-5) % ABG Methemoglobin 1.4 (0.0-3.0) % ABG O2 Capacity 14.5 L (16-24) mL/dl Hgb O2 Saturation 92.5 L (95.0-98.0) % FiO2 50.0 % Sodium 130 L (132-148) mmol/L Potassium 4.3 (3.6-5.0) mmol/L Chloride 96 L (98-107) mmol/L Carbon Dioxide 29 (21-33) mmol/L Anion Gap 10 (10-20) BUN 41 H (7-21) mg/dL Creatinine 2.2 H (0.8-1.5) mg/dl Est GFR ( Amer) 36 Est GFR (Non-Af Amer) 30 Random Glucose 138 H (70-110) mg/dL Serum Osmolality (272-300) mosm/kg Calcium 7.7 L (8.4-10.5) mg/dL Magnesium 1.9 (1.7-2.2) mg/dL Total Bilirubin 0.5 (0.2-1.3) mg/dL Direct Bilirubin 0.4 (0.0-0.4) mg/dL AST 18 (17-59) U/L ALT 17 (7-56) U/L Alkaline Phosphatase 80 (38-126) U/L Total Creatine Kinase < 20 L (35-230) U/L Troponin I < 0.01 ng/mL NT-Pro-B Natriuret Pep 62939 H (0-450) pg/mL Total Protein 5.4 L (5.8-8.3) g/dL Albumin 2.1 L (3.0-4.8) g/dL Globulin 3.3 gm/dL Albumin/Globulin Ratio 0.6 L (1.1-1.8) Urine Color (YELLOW) Urine Appearance (CLEAR) Urine pH (4.7-8.0) Ur Specific [place] (1.005-1.035) Urine Protein (<30 mg/dL) mg/dL Urine Glucose (UA) (NEGATIVE) mg/dL Urine Ketones (NEGATIVE) mg/dL Urine Blood (NEGATIVE) Urine Nitrate (NEGATIVE) Urine Bilirubin (NEGATIVE) Urine Urobilinogen (<1 E.U./dL) E.U./dL Ur Leukocyte Esterase (NEGATIVE) [place]/uL Urine RBC (0-2) /hpf Urine WBC (0-6) /hpf Ur Epithelial Cells (0-5) /hpf Urine Bacteria (NONE) /hpf Coarse Granular Casts (NONE) /hpf Urine Osmolality (300-1000) mosm/kg U Random Total Protein mg/L Ur Random Sodium meq/L Urine Chloride (32-290) mmol/L 09/01/18 09/01/18 09/01/18 Range/Units 15:20 13:55 13:30 WBC (4.5-11.0) 10^3/uL RBC (3.5-6.1) 10^6/uL Hgb (14.0-18.0) g/dL Hct (42.0-52.0) % MCV (80.0-105.0) fl MCH (25.0-35.0) pg MCHC (31.0-37.0) g/dl RDW (11.5-14.5) % Plt Count (120.0-450.0) 10^3/uL MPV (7.0-11.0) fl Neut % (Auto) (50.0-68.0) % Lymph % (Auto) (22.0-35.0) % [place] % (Auto) (1.0-6.0) % Eos % (Auto) (1.5-5.0) % Baso % (Auto) (0.0-3.0) % Lymph # (Auto) (1.2-3.4) [place] # (Auto) (0.1-0.6) Eos # (Auto) (0.0-0.7) Baso # (Auto) (0.0-2.0) K/mm3 Absolute Neuts (auto) (1.4-6.5) pCO2 (35-45) mm/Hg pO2 (80-100) mm/Hg HCO3 (21-28) mmol/L ABG pH (7.35-7.45) ABG Total CO2 (22-28) mmol.L ABG O2 Saturation (95-98) % ABG O2 Content (15-23) ML/dl ABG Base Excess (-2.0-3.0) mmol/L ABG Hemoglobin (11.7-17.4) g/dL ABG Carboxyhemoglobin (0.5-1.5) % POC ABG HHb (Measured) (0-5) % ABG Methemoglobin (0.0-3.0) % ABG O2 Capacity (16-24) mL/dl Hgb O2 Saturation (95.0-98.0) % FiO2 % Sodium (132-148) mmol/L Potassium (3.6-5.0) mmol/L Chloride (98-107) mmol/L Carbon Dioxide (21-33) mmol/L Anion Gap (10-20) BUN (7-21) mg/dL Creatinine (0.8-1.5) mg/dl Est GFR ( Amer) Est GFR (Non-Af Amer) Random Glucose (70-110) mg/dL Serum Osmolality (272-300) mosm/kg Calcium (8.4-10.5) mg/dL Magnesium (1.7-2.2) mg/dL Total Bilirubin (0.2-1.3) mg/dL Direct Bilirubin (0.0-0.4) mg/dL AST (17-59) U/L ALT (7-56) U/L Alkaline Phosphatase (38-126) U/L Total Creatine Kinase (35-230) U/L Troponin I ng/mL NT-Pro-B Natriuret Pep (0-450) pg/mL Total Protein (5.8-8.3) g/dL Albumin (3.0-4.8) g/dL Globulin gm/dL Albumin/Globulin Ratio (1.1-1.8) Urine Color Yellow (YELLOW) Urine Appearance Clear (CLEAR) Urine pH 5.5 (4.7-8.0) Ur Specific [place] 1.015 (1.005-1.035) Urine Protein Negative (<30 mg/dL) mg/dL Urine Glucose (UA) Negative (NEGATIVE) mg/dL Urine Ketones Negative (NEGATIVE) mg/dL Urine Blood Trace-intact H (NEGATIVE) Urine Nitrate Negative (NEGATIVE) Urine Bilirubin Negative (NEGATIVE) Urine Urobilinogen 0.2 (<1 E.U./dL) E.U./dL Ur Leukocyte Esterase Negative (NEGATIVE) [place]/uL Urine RBC 1 - 3 H (0-2) /hpf Urine WBC 0 - 2 (0-6) /hpf Ur Epithelial Cells None (0-5) /hpf Urine Bacteria Mod (NONE) /hpf Coarse Granular Casts Trace (NONE) /hpf Urine Osmolality (300-1000) mosm/kg U Random Total Protein 22 mg/L Ur Random Sodium meq/L Urine Chloride 121 (32-290) mmol/L 09/01/18 09/01/18 Range/Units 13:30 13:20 WBC (4.5-11.0) 10^3/uL RBC (3.5-6.1) 10^6/uL Hgb (14.0-18.0) g/dL Hct (42.0-52.0) % MCV (80.0-105.0) fl MCH (25.0-35.0) pg MCHC (31.0-37.0) g/dl RDW (11.5-14.5) % Plt Count (120.0-450.0) 10^3/uL MPV (7.0-11.0) fl Neut % (Auto) (50.0-68.0) % Lymph % (Auto) (22.0-35.0) % [place] % (Auto) (1.0-6.0) % Eos % (Auto) (1.5-5.0) % Baso % (Auto) (0.0-3.0) % Lymph # (Auto) (1.2-3.4) [place] # (Auto) (0.1-0.6) Eos # (Auto) (0.0-0.7) Baso # (Auto) (0.0-2.0) K/mm3 Absolute Neuts (auto) (1.4-6.5) pCO2 (35-45) mm/Hg pO2 (80-100) mm/Hg HCO3 (21-28) mmol/L ABG pH (7.35-7.45) ABG Total CO2 (22-28) mmol.L ABG O2 Saturation (95-98) % ABG O2 Content (15-23) ML/dl ABG Base Excess (-2.0-3.0) mmol/L ABG Hemoglobin (11.7-17.4) g/dL ABG Carboxyhemoglobin (0.5-1.5) % POC ABG HHb (Measured) (0-5) % ABG Methemoglobin (0.0-3.0) % ABG O2 Capacity (16-24) mL/dl Hgb O2 Saturation (95.0-98.0) % FiO2 % Sodium (132-148) mmol/L Potassium (3.6-5.0) mmol/L Chloride (98-107) mmol/L Carbon Dioxide (21-33) mmol/L Anion Gap (10-20) BUN (7-21) mg/dL Creatinine (0.8-1.5) mg/dl Est GFR ( Amer) Est GFR (Non-Af Amer) Random Glucose (70-110) mg/dL Serum Osmolality 286 (272-300) mosm/kg Calcium (8.4-10.5) mg/dL Magnesium (1.7-2.2) mg/dL Total Bilirubin (0.2-1.3) mg/dL Direct Bilirubin (0.0-0.4) mg/dL AST (17-59) U/L ALT (7-56) U/L Alkaline Phosphatase (38-126) U/L Total Creatine Kinase (35-230) U/L Troponin I ng/mL NT-Pro-B Natriuret Pep (0-450) pg/mL Total Protein (5.8-8.3) g/dL Albumin (3.0-4.8) g/dL Globulin gm/dL Albumin/Globulin Ratio (1.1-1.8) Urine Color (YELLOW) Urine Appearance (CLEAR) Urine pH (4.7-8.0) Ur Specific [place] (1.005-1.035) Urine Protein (<30 mg/dL) mg/dL Urine Glucose (UA) (NEGATIVE) mg/dL Urine Ketones (NEGATIVE) mg/dL Urine Blood (NEGATIVE) Urine Nitrate (NEGATIVE) Urine Bilirubin (NEGATIVE) Urine Urobilinogen (<1 E.U./dL) E.U./dL Ur Leukocyte Esterase (NEGATIVE) [place]/uL Urine RBC (0-2) /hpf Urine WBC (0-6) /hpf Ur Epithelial Cells (0-5) /hpf Urine Bacteria (NONE) /hpf Coarse Granular Casts (NONE) /hpf Urine Osmolality 317 (300-1000) mosm/kg U Random Total Protein mg/L Ur Random Sodium 107 meq/L Urine Chloride (32-290) mmol/L Laboratory Results - last 24 hr 09/01/18 09/01/18 09/01/18 13:20 13:30 13:30 WBC RBC Hgb Hct MCV MCH MCHC RDW Plt Count MPV Neut % (Auto) Lymph % (Auto) [place] % (Auto) Eos % (Auto) Baso % (Auto) Lymph # (Auto) [place] # (Auto) Eos # (Auto) Baso # (Auto) Absolute Neuts (auto) pCO2 pO2 HCO3 ABG pH ABG Total CO2 ABG O2 Saturation ABG O2 Content ABG Base Excess ABG Hemoglobin ABG Carboxyhemoglobin POC ABG HHb (Measured) ABG Methemoglobin ABG O2 Capacity Hgb O2 Saturation FiO2 Sodium Potassium Chloride Carbon Dioxide Anion Gap BUN Creatinine Est GFR ( Amer) Est GFR (Non-Af Amer) Random Glucose Serum Osmolality 286 Calcium Magnesium Total Bilirubin Direct Bilirubin AST ALT Alkaline Phosphatase Total Creatine Kinase Troponin I NT-Pro-B Natriuret Pep Total Protein Albumin Globulin Albumin/Globulin Ratio Urine Color Yellow Urine Appearance Clear Urine pH 5.5 Ur Specific [place] 1.015 Urine Protein Negative Urine Glucose (UA) Negative Urine Ketones Negative Urine Blood Trace-intact H Urine Nitrate Negative Urine Bilirubin Negative Urine Urobilinogen 0.2 Ur Leukocyte Esterase Negative Urine RBC 1 - 3 H Urine WBC 0 - 2 Ur Epithelial Cells None Urine Bacteria Mod Coarse Granular Casts Trace Urine Osmolality 317 U Random Total Protein Ur Random Sodium 107 Urine Chloride 09/01/18 09/01/18 09/02/18 13:55 15:20 06:00 WBC 12.5 H D RBC 3.73 Hgb 10.0 L Hct 33.0 L MCV 88.5 MCH 26.8 MCHC 30.3 L RDW 14.6 H Plt Count 143 MPV 11.3 H Neut % (Auto) 86.3 H Lymph % (Auto) 5.1 L [place] % (Auto) 2.1 Eos % (Auto) 6.3 H Baso % (Auto) 0.2 Lymph # (Auto) 0.6 L [place] # (Auto) 0.3 Eos # (Auto) 0.8 H Baso # (Auto) 0.02 Absolute Neuts (auto) 10.80 H pCO2 pO2 HCO3 ABG pH ABG Total CO2 ABG O2 Saturation ABG O2 Content ABG Base Excess ABG Hemoglobin ABG Carboxyhemoglobin POC ABG HHb (Measured) ABG Methemoglobin ABG O2 Capacity Hgb O2 Saturation FiO2 Sodium Potassium Chloride Carbon Dioxide Anion Gap BUN Creatinine Est GFR ( Amer) Est GFR (Non-Af Amer) Random Glucose Serum Osmolality Calcium Magnesium Total Bilirubin Direct Bilirubin AST ALT Alkaline Phosphatase Total Creatine Kinase Troponin I NT-Pro-B Natriuret Pep Total Protein Albumin Globulin Albumin/Globulin Ratio Urine Color Urine Appearance Urine pH Ur Specific [place] Urine Protein Urine Glucose (UA) Urine Ketones Urine Blood Urine Nitrate Urine Bilirubin Urine Urobilinogen Ur Leukocyte Esterase Urine RBC Urine WBC Ur Epithelial Cells Urine Bacteria Coarse Granular Casts Urine Osmolality U Random Total Protein 22 Ur Random Sodium Urine Chloride 121 09/02/18 09/02/18 06:00 08:00 WBC RBC Hgb Hct MCV MCH MCHC RDW Plt Count MPV Neut % (Auto) Lymph % (Auto) [place] % (Auto) Eos % (Auto) Baso % (Auto) Lymph # (Auto) [place] # (Auto) Eos # (Auto) Baso # (Auto) Absolute Neuts (auto) pCO2 41 pO2 65.0 L HCO3 27.8 ABG pH 7.44 ABG Total CO2 29.1 H ABG O2 Saturation 95.2 ABG O2 Content 13.8 L ABG Base Excess 3.3 H ABG Hemoglobin 10.6 L ABG Carboxyhemoglobin 1.5 POC ABG HHb (Measured) 4.7 ABG Methemoglobin 1.4 ABG O2 Capacity 14.5 L Hgb O2 Saturation 92.5 L FiO2 50.0 Sodium 130 L Potassium 4.3 Chloride 96 L Carbon Dioxide 29 Anion Gap 10 BUN 41 H Creatinine 2.2 H Est GFR ( Amer) 36 Est GFR (Non-Af Amer) 30 Random Glucose 138 H Serum Osmolality Calcium 7.7 L Magnesium 1.9 Total Bilirubin 0.5 Direct Bilirubin 0.4 AST 18 ALT 17 Alkaline Phosphatase 80 Total Creatine Kinase < 20 L Troponin I < 0.01 NT-Pro-B Natriuret Pep 93722 H Total Protein 5.4 L Albumin 2.1 L Globulin 3.3 Albumin/Globulin Ratio 0.6 L Urine Color Urine Appearance Urine pH Ur Specific [place] Urine Protein Urine Glucose (UA) Urine Ketones Urine Blood Urine Nitrate Urine Bilirubin Urine Urobilinogen Ur Leukocyte Esterase Urine RBC Urine WBC Ur Epithelial Cells Urine Bacteria Coarse Granular Casts Urine Osmolality U Random Total Protein Ur Random Sodium Urine Chloride Radiology Impressions: Radiology Impressions Chest X-Ray 09/01/18 16:00 IMPRESSION: Re-expansion of left lung. Small bilateral pleural effusion. Lines and tubes unchanged Chest X-Ray 09/02/18 06:00 IMPRESSION: Nasogastric tube barely terminates in the stomach with the side hole in the distal esophagus. Advancement of the catheter further into the stomach followed by confirmation radiography advised. Further improvement in aeration of the left hemithorax with left pleural effusion diminished, now appearing mild. Underlying left basilar airspace disease not excluded. Borderline right basilar airspace disease question. Trace right pleural effusion noted. EKG/Cardiology Studies: Cardiology / EKG Studies 09/02/18 07:00 ELECTROCARDIOGRAM DAILY Comment: Reason For Exam: CHF 09/03/18 07:00 ELECTROCARDIOGRAM DAILY Comment: Reason For Exam: CHF Critical Care Progress Note - Nutrition Nutrition: Nutrition Category Date Time Status NPO Diet [DIET] Diets 09/01/18 Lunch Ordered Assessment/Plan - Assessment and Plan (Free Text) Plan: Patient is 68yo male with PMHx of chronic back pain, admitted for foot pain, subequently went into resp failure, shock, requiring vasopressor support, intubation. Currently intubated, OFF vasopressor support Unclear etiology of shock and pleural effusions Labs, imaging, chart reviewed CXR with improvement of complete opacification of L lung R IJ in place Worsening renal function, likely 2/2 ATN from shock Had thoracentesis, 1.7L removed, clear, pleural fluid LDH, protein pending, cultures pending Shock, likely septic vs cardiogenic or mixed; resolved Pleural effusions rule out mucus plugging Respiratory failure CHF PNA Recommend: - cont with vent support, low tidal vol ventilation, increase PEEP to 10, titrate down FiO2 - broad spectrum abx as per ID, follow up cultures, Urine Lg, strep, Procal - follow up cardiology - cont with ionotropic support, Dobutamine - Stress dose steroids - monitor LFTS - aggressive chest PT - Lasix 40mg IV BID - monitor Cr closely - renal follow up - GI ppx - DVT ppx - Monitor in MICU Critical care time 35 minutes
[2018-09-02 07:14] LABS: ALB/GLOB RATIO 0.6 (1.1-1.8); ALBUMIN 2.1 g/dL (3.0-4.8); ALT/SGPT 17 U/L (7-56); AST/SGOT 18 U/L (17-59); BILIRUBIN,DIRECT 0.4 mg/dL (0.0-0.4); BLOOD UREA NITROGEN 41 mg/dL (7-21); CALCIUM 7.7 mg/dL (8.4-10.5); GFR NON-AFRICAN AMERICAN 30
[2018-09-02] MEDS: Budesonide 0.5 mg/2 ml Inhal Susp UD IH SCH ×2 (07:31→20:13)
--- NOTE | 2018-09-02 08:05 | RAD ---
Date of service: 09/02/2018 HISTORY: CHF COMPARISON: Portable chest 09/01/2018. FINDINGS: LUNGS: Endotracheal tube is unchanged in position with nasogastric tube terminating barely in the region of the stomach. The side hole is in the distal esophagus. Advancement of the NG tube antegrade into the stomach followed by confirmation radiography advised. Right central venous line unchanged in position. Patchy airspace disease is question at the right base with underlying left basilar atelectasis or infiltrate not excluded. PLEURA: Mild left pleural effusion appears slightly improved. Trace right pleural effusion evident. CARDIOVASCULAR: Calcific atherosclerotic changes are seen related to the thoracic aorta. Normal cardiac size. No pulmonary vascular congestion. OSSEOUS STRUCTURES: No significant abnormalities. VISUALIZED UPPER ABDOMEN: Normal. OTHER FINDINGS: None. IMPRESSION: Nasogastric tube barely terminates in the stomach with the side hole in the distal esophagus. Advancement of the catheter further into the stomach followed by confirmation radiography advised. Further improvement in aeration of the left hemithorax with left pleural effusion diminished, now appearing mild. Underlying left basilar airspace disease not excluded. Borderline right basilar airspace disease question. Trace right pleural effusion noted.
[2018-09-02 08:09] LABS: ARTERIAL BLOOD GAS HCO3 27.8 mmol/L (21-28); ARTERIAL BLOOD GAS HEMOGLOBIN 10.6 g/dL (11.7-17.4); ARTERIAL BLOOD GAS O2 CAPACITY 14.5 mL/dl (16-24); ARTERIAL BLOOD GAS O2 CONTENT 13.8 ML/dl (15-23); ARTERIAL BLOOD GAS O2 SAT 95.2 % (95-98); ARTERIAL BLOOD GAS PCO2 41 mm/Hg (35-45); ARTERIAL BLOOD GAS PH 7.44 (7.35-7.45); ARTERIAL BLOOD GAS TCO2 29.1 mmol.L (22-28)
--- NOTE | 2018-09-02 08:19 | CON ---
DATE OF CONSULTATION: 09/02/2018 PULMONARY CONSULTATION REASON FOR PULMONARY CONSULTATION: Respiratory failure. REFERRING PHYSICIAN: Dr. Carlos Hernandez. HISTORY OF PRESENT ILLNESS: The patient is a 68-year-old male, with past medical history significant for chronic back pain, vertebral disc disease, chronic infected skin ulcers (legs), who presented to [facility] - originally on 08/23/2018 - with worsening bilateral foot/leg pain for the previous 3 weeks. In the emergency room, the patient was noted to have an acute cellulitis. He was thus admitted for additional evaluation. I did speak with the ICU night nurse at length. Apparently, on 08/31/2018, the patient was transferred to the medical ICU with worsening shortness of breath. In addition, arterial blood gasses revealed a persistent severe respiratory acidosis. The patient was subsequently intubated for airway protection and ventilation. I did review all the notes since his ICU admission. He is status post right thoracentesis (approximately 1700 mL). I am thus asked to evaluate on this patient for additional ventilator management and treatment. Again, I did discuss the case with the ICU nurse at length. There were no significant pulmonary symptoms offered on admission. However, again, on 08/31/2018, the patient did experience shortness of breath. There is no history of significant cough or sputum production. There is no history of chest pain, coughing up of blood, or chest pain - brought on with deep respirations. The patient did have low-grade fevers during the hospital admission. No history of chills or infectious exposure. No history of night sweats, weight loss or appetite change prior to the above events. No history of calf pains. No history of syncope or diaphoresis. No history of recent travel or trauma. REVIEW OF SYSTEMS: No history of nausea, vomiting or diarrhea. No acute urinary symptoms. No new neurologic complaints. Rest of the review of systems is negative. ALLERGIES: ALLERGIES ARE TO PENICILLIN. SOCIAL HISTORY: Positive for extensive tobacco usage. No alcohol. FAMILY HISTORY: No inheritable diseases. HOME MEDICATIONS: Not listed in the current computer chart. PHYSICAL EXAMINATION: GENERAL: The patient is currently intubated and sedated. VITAL SIGNS: Temperature is 96.3, pulse 91, respiratory rate 22/20, blood pressure 119/54. HEENT: Normocephalic, atraumatic. No JVD. CARDIOVASCULAR: Systolic ejection murmur at the lower left sternal border. Positive S3 gallop. LUNGS: Crackles at both bases. Minimal bilateral rhonchi. No wheezing. EXTREMITIES: Positive edema. No cyanosis or clubbing. GASTROINTESTINAL: Abdomen is soft, nondistended. Bowel sounds are positive. SKIN: + decubitus ulcers. Bilateral lower extremity ulcers. NEUROLOGIC: Exam limited at the present time. PERTINENT LABORATORY DATA: Chest x-ray was done this morning and reviewed. There are bilateral pulmonary infiltrates consistent with pulmonary edema. There are small bilateral pleural effusions. There is also a possible underlying right lower lobe infiltrate. Stat arterial blood gas has been ordered. CBC: White count 12.5K, hemoglobin 10, hematocrit 33, platelets of 143,000. Complete metabolic profile: Sodium 130, chloride 97, BUN 37, creatinine 2.1, glucose 115, uric acid 7.8. B-type natriuretic peptide 72902. Procalcitonin done on 08/30/2018 is very slightly elevated - 0.61 IMPRESSION: 1. Respiratory failure. 2. Congestive heart failure. 3. Bilateral pleural effusions. 4. Status post left lung atelectasis. 5. Possible right lower lobe pneumonia. 6. Probable chronic obstructive pulmonary disease. 7. Renal insufficiency. PLAN: Again, I did discuss the case with the night nurse at length. I have also reviewed the chart at length. The patient is currently intubated and sedated. The patient did present to [facility] - originally on 08/23/2018 - with bilateral infected skin ulcers (legs). On 08/31/2018, the patient did experience worsening shortness of breath. Chest x-ray was done at that time. The chest x-ray on 08/31/2018 revealed complete opacification of the left lung - consistent with a mucous plug. The atelectasis has since resolved. Today's chest x-ray is noted above. I did order a stat arterial blood gas to be done this morning. I have also reviewed the laboratory data. There is a significant rise in the B-type natriuretic peptide noted. The patient is currently on a dobutamine drip. He was given multiple doses of Lasix. On physical exam, there is only minimal bronchospasm noted. I will continue the current nebulizer treatments for now and add inhaled Pulmicort. The patient does have a 60-year history of smoking. I would continue with the antibiotic coverage as per Infectious Disease. Input by Dr. Kelley is noted. The leukocytosis is now resolving. The temperatures have also fully resolved. Again, the patient did have a thoracentesis done in the ICU. Results are pending. The patient remains critically ill at this point in time, but certainly seems improved from a few days ago. I will discuss the above with the entire ICU team in the next few moments. I will discuss the above with the attending physician later this morning. Thank you very much for this pulmonary consultation. Mike Mahmood MD MTDD
[2018-09-02] MEDS: Meropenem IV 1 gm in NS 1 GM/50 ML BAG IVPB SCH ×2 (10:22→21:28)
[2018-09-02] MEDS: Enoxaparin 40 mg Syringe SC SCH (10:22)
[2018-09-02] MEDS: Linezolid 600 mg in D5W 300 ml 600 MG/300 ML BAG IVPB SCH ×2 (10:27→21:25)
[2018-09-02] MEDS: Collagenase 250 Units/gm Ointment(30 gm) TOP SCH (10:28)
[2018-09-02] MEDS: Ammonium Lactate 12% Cream (140 g) TOP SCH (10:29)
[2018-09-02] MEDS: POLYETHYLENE GLYCOL 3350 17 GM/Dose PACKET PO SCH (10:31)
--- NOTE | 2018-09-02 11:59 | CP.PCM.PN ---
Subjective - Date & Time of Evaluation Date of Evaluation: 09/02/18 Time of Evaluation: 11:58 - Subjective Subjective: PGY-[address] Hernandez U/O 400 overnight. Off Levo, Only on dobutamin/precedex. Agitated got ativan x 1. Still intubated Objective - Vital Signs/Intake and Output Vital Signs (last 24 hours): Temp Pulse Resp BP Pulse Ox 96.3 F L 91 H 20 103/50 L 99 09/02/18 06:20 09/02/18 06:20 09/01/18 10:08 09/02/18 10:24 09/02/18 06:20 Intake and Output: 09/02/18 09/02/18 06:59 18:59 Intake Total 250 Output Total 400 Balance -150 - Medications Medications: Current Medications Acetaminophen (Tylenol 325mg Tab) 650 mg PO Q6 PRN PRN Reason: TEMP>=99.5F Last Admin: 08/30/18 01:53 Dose: 650 mg Acetaminophen (Tylenol 650 Mg Supp) 650 mg RC Q6H PRN PRN Reason: TEMP>=99.5F Acetylcysteine (Acetylcysteine 20%) 4 ml IH [id number] [facility] Last Admin: 09/02/18 07:31 Dose: 4 ml Bisacodyl (Dulcolax) 10 mg RC HS PRN PRN Reason: Constipation Budesonide (Pulmicort Respules) 0.5 mg IH [id number] [facility] Last Admin: 09/02/18 07:31 Dose: 0.5 mg Collagenase (Santyl) 0 gm TOP DAILY [facility] Last Admin: 09/02/18 10:28 Dose: 1 appl Cyanocobalamin (Vitamin B12 1000 Mcg/Ml Inj) 1,000 mcg IM DAILY [facility] Stop: 09/04/18 10:01 Last Admin: 09/02/18 10:25 Dose: 1,000 mcg Enoxaparin Sodium (Lovenox) 40 mg SC DAILY [facility]; Protocol Last Admin: 09/02/18 10:22 Dose: 40 mg Ergocalciferol (Drisdol 50,000 Intl Units Cap) 1 cap PO Q7D [facility] Last Admin: 08/26/18 15:49 Dose: 1 cap Folic Acid (Folic Acid) 1 mg PO DAILY [facility] Last Admin: 09/02/18 10:29 Dose: 1 mg Furosemide (Lasix) 40 mg IVP DAILY [facility] Last Admin: 09/02/18 10:24 Dose: 40 mg Hydrocortisone Sodium Succinate (Solu-Cortef) 50 mg IVP Q8 [facility] Meropenem (Merrem Iv 1 Gm Premix) 1 gm in 50 mls @ 100 mls/hr IVPB Q12 [facility]; Protocol Stop: 09/07/18 10:01 Last Admin: 09/02/18 10:22 Dose: 100 mls/hr Linezolid (Zyvox 600mg/300ml D5w) 600 mg in 300 mls @ 200 mls/hr IVPB Q12 [facility]; Protocol Stop: 09/07/18 10:01 Last Admin: 09/02/18 10:27 Dose: 200 mls/hr NOREPINEPHRINE BIT/0.9 % NACL (Levophed 4 Mg/ 250 Ml Ns Premixed) 4 mg in 250 mls @ 15 mls/hr IV .[id number] PRN; Protocol PRN Reason: TITRATE PER MD ORDER Last Titration: 09/02/18 03:00 Dose: 0 mcg/min, 0 mls/hr Dexmedetomidine HCl (Precedex 400mcg/100ml) 400 mcg in 100 mls @ 3.856 mls/hr IV .Q24H PRN; Protocol PRN Reason: Sedation Last Admin: 09/02/18 00:47 Dose: 0.8 mcg/kg/hr, 15.422 mls/hr Fentanyl Citrate (Fentanyl Citrate/Sodium Chloride 1 Mg/100 Ml) 1,000 mcg in 100 mls @ 5 mls/hr IV .Q20H PRN; Protocol PRN Reason: TITRATE PER MD ORDER Dobutamine HCl/Dextrose (Dobutamine/Dextrose 5% 500mg/250ml) 500 mg in 250 mls @ 5.783 mls/hr IV .Q24H PRN; Protocol PRN Reason: TITRATE PER PROTOCOL Last Admin: 09/01/18 11:45 Dose: 2.5 mcg/kg/min, 5.783 mls/hr Lactic Acid (Lac-Hydrin 12% Cream (140 G)) 0 ea TOP DAILY [facility] Last Admin: 09/02/18 10:29 Dose: 1 applic Levalbuterol HCl (Xopenex) 0.63 mg IH [id number] [facility] Last Admin: 09/02/18 07:31 Dose: 0.63 mg Lorazepam (Ativan) 1 mg IVP Q6H PRN; Protocol PRN Reason: Anxiety Last Admin: 09/02/18 03:35 Dose: 1 mg Metoprolol Tartrate (Lopressor) 50 mg PO Q8H [facility] Last Admin: 08/31/18 10:03 Dose: Not Given Mupirocin (Bactroban Ointment) 0 gm TOP BID [facility] Last Admin: 09/01/18 17:53 Dose: 1 appl Nicotine (Nicoderm Cq) 1 patch TD DAILY [facility] Last Admin: 09/02/18 10:23 Dose: 1 patch Ondansetron HCl (Zofran Inj) 4 mg IVP Q4H PRN PRN Reason: Nausea/Vomiting Pantoprazole Sodium (Protonix Inj) 40 mg IVP DAILY [facility] Last Admin: 09/02/18 10:25 Dose: 40 mg Polyethylene Glycol (Miralax) 17 gm PO DAILY [facility] Last Admin: 09/02/18 10:31 Dose: 17 gm Sodium Hypochlorite (Dakins Solution 0.25%) 0 ml TOP DAILY [facility] Last Admin: 09/01/18 14:00 Dose: 1 applic - Labs Labs: 09/02/18 06:00 09/02/18 06:00 PT 15.1 SECONDS (9.4-12.5) H 08/23/18 22:20 INR 1.36 08/23/18 22:20 APTT 27.9 Seconds (26.9-38.3) 08/23/18 22:20
--- NOTE | 2018-09-02 12:55 | CP.PCM.PN ---
Subjective - Date & Time of Evaluation Date of Evaluation: 09/02/18 Time of Evaluation: 09:40 - Subjective Subjective: Continues to be intubated, sedated, no fevers overnight. Objective - Vital Signs/Intake and Output Vital Signs (last 24 hours): Temp Pulse Resp BP Pulse Ox 96.3 F L 91 H 20 103/50 L 99 09/02/18 06:20 09/02/18 06:20 09/01/18 10:08 09/02/18 10:24 09/02/18 06:20 Intake and Output: 09/02/18 09/02/18 06:59 18:59 Intake Total 250 Output Total 400 Balance -150 - Medications Medications: Current Medications Acetaminophen (Tylenol 325mg Tab) 650 mg PO Q6 PRN PRN Reason: TEMP>=99.5F Last Admin: 08/30/18 01:53 Dose: 650 mg Acetaminophen (Tylenol 650 Mg Supp) 650 mg RC Q6H PRN PRN Reason: TEMP>=99.5F Acetylcysteine (Acetylcysteine 20%) 4 ml IH [id number] [facility] Last Admin: 09/02/18 07:31 Dose: 4 ml Bisacodyl (Dulcolax) 10 mg RC HS PRN PRN Reason: Constipation Budesonide (Pulmicort Respules) 0.5 mg IH [id number] [facility] Last Admin: 09/02/18 07:31 Dose: 0.5 mg Collagenase (Santyl) 0 gm TOP DAILY [facility] Last Admin: 09/02/18 10:28 Dose: 1 appl Cyanocobalamin (Vitamin B12 1000 Mcg/Ml Inj) 1,000 mcg IM DAILY [facility] Stop: 09/04/18 10:01 Last Admin: 09/02/18 10:25 Dose: 1,000 mcg Enoxaparin Sodium (Lovenox) 40 mg SC DAILY [facility]; Protocol Last Admin: 09/02/18 10:22 Dose: 40 mg Ergocalciferol (Drisdol 50,000 Intl Units Cap) 1 cap PO Q7D [facility] Last Admin: 08/26/18 15:49 Dose: 1 cap Folic Acid (Folic Acid) 1 mg PO DAILY [facility] Last Admin: 09/02/18 10:29 Dose: 1 mg Furosemide (Lasix) 40 mg IVP DAILY [facility] Last Admin: 09/02/18 10:24 Dose: 40 mg Hydrocortisone Sodium Succinate (Solu-Cortef) 50 mg IVP Q8 [facility] Meropenem (Merrem Iv 1 Gm Premix) 1 gm in 50 mls @ 100 mls/hr IVPB Q12 [facility]; Protocol Stop: 09/07/18 10:01 Last Admin: 09/02/18 10:22 Dose: 100 mls/hr Linezolid (Zyvox 600mg/300ml D5w) 600 mg in 300 mls @ 200 mls/hr IVPB Q12 [facility]; Protocol Stop: 09/07/18 10:01 Last Admin: 09/02/18 10:27 Dose: 200 mls/hr NOREPINEPHRINE BIT/0.9 % NACL (Levophed 4 Mg/ 250 Ml Ns Premixed) 4 mg in 250 mls @ 15 mls/hr IV .[id number] PRN; Protocol PRN Reason: TITRATE PER MD ORDER Last Titration: 09/02/18 03:00 Dose: 0 mcg/min, 0 mls/hr Dexmedetomidine HCl (Precedex 400mcg/100ml) 400 mcg in 100 mls @ 3.856 mls/hr IV .Q24H PRN; Protocol PRN Reason: Sedation Last Admin: 09/02/18 00:47 Dose: 0.8 mcg/kg/hr, 15.422 mls/hr Fentanyl Citrate (Fentanyl Citrate/Sodium Chloride 1 Mg/100 Ml) 1,000 mcg in 100 mls @ 5 mls/hr IV .Q20H PRN; Protocol PRN Reason: TITRATE PER MD ORDER Dobutamine HCl/Dextrose (Dobutamine/Dextrose 5% 500mg/250ml) 500 mg in 250 mls @ 5.783 mls/hr IV .Q24H PRN; Protocol PRN Reason: TITRATE PER PROTOCOL Last Admin: 09/01/18 11:45 Dose: 2.5 mcg/kg/min, 5.783 mls/hr Lactic Acid (Lac-Hydrin 12% Cream (140 G)) 0 ea TOP DAILY [facility] Last Admin: 09/02/18 10:29 Dose: 1 applic Levalbuterol HCl (Xopenex) 0.63 mg IH [id number] [facility] Last Admin: 09/02/18 07:31 Dose: 0.63 mg Lorazepam (Ativan) 1 mg IVP Q6H PRN; Protocol PRN Reason: Anxiety Last Admin: 09/02/18 03:35 Dose: 1 mg Metoprolol Tartrate (Lopressor) 50 mg PO Q8H [facility] Last Admin: 08/31/18 10:03 Dose: Not Given Mupirocin (Bactroban Ointment) 0 gm TOP BID [facility] Last Admin: 09/01/18 17:53 Dose: 1 appl Nicotine (Nicoderm Cq) 1 patch TD DAILY [facility] Last Admin: 09/02/18 10:23 Dose: 1 patch Ondansetron HCl (Zofran Inj) 4 mg IVP Q4H PRN PRN Reason: Nausea/Vomiting Pantoprazole Sodium (Protonix Inj) 40 mg IVP DAILY [facility] Last Admin: 09/02/18 10:25 Dose: 40 mg Polyethylene Glycol (Miralax) 17 gm PO DAILY [facility] Last Admin: 09/02/18 10:31 Dose: 17 gm Sodium Hypochlorite (Dakins Solution 0.25%) 0 ml TOP DAILY [facility] Last Admin: 09/01/18 14:00 Dose: 1 applic - Labs Labs: 09/02/18 06:00 09/02/18 06:00 PT 15.1 SECONDS (9.4-12.5) H 08/23/18 22:20 INR 1.36 08/23/18 22:20 APTT 27.9 Seconds (26.9-38.3) 08/23/18 22:20 - Constitutional Appears: Chronically Ill, Other (intubated, sedated) - Head Exam Head Exam: NORMAL INSPECTION - ENT Exam Additional comments: ET tube in place - Respiratory Exam Respiratory Exam: Decreased Breath Sounds - Cardiovascular Exam Cardiovascular Exam: +S1, +S2 - GI/Abdominal Exam GI & Abdominal Exam: Soft. absent: Tenderness Assessment and Plan - Assessment and Plan (Free Text) Plan: Assessment severe sepsis / S/P shock now with ventilator-dependent respiratory failure and acute renal failure due to probable right lower lobe hospital-acquired pneumonia, with bilateral pleural effusions S/P right sided thoracentesis Infected left lower extremity wounds, R/O osteomyelitis, grew MRSA chronic back pain vertebral disc disease venous stasis dermatitis Plan switched IV Vancomycin to Zyvox and will also continue Merrem (day 4 of combinat ion) - repeat blood cx negative so far, follow up sputum cx, PCT is 0.61 - Zyvox will also cover the MRSA in the foot - target up to 7 days of antibiotics awaiting MRI of the foot but patient is critically ill currently patient had thoracentesis on the right and fluid looks to be transudative - rev iewed CXR today with decreased left sided pleural effusion discussed with Dr. Lloyd - no surgery for the foot for now will continue to monitor clinically overall prognosis is poor
--- NOTE | 2018-09-02 13:33 | CP.PCM.PN ---
<AlexaKishor chaudhry - Last Filed: 09/02/18 13:29> Subjective - Date & Time of Evaluation Date of Evaluation: 09/02/18 Time of Evaluation: 13:29 - Subjective Subjective: Podiatry progress note Dr. Lloyd 68 y/o seen and evaluated for infected skin ulcers and b/l foot pain. Patient currently in the ICU due to acute CHF complicated by large b/l pleural effusion and suspected pneumonia with sepsis. Patient currently on BiPAP, intubated and sedated. ROS not obtained Objective - Vital Signs/Intake and Output Vital Signs (last 24 hours): Temp Pulse Resp BP Pulse Ox 96.3 F L 91 H 20 103/50 L 99 09/02/18 06:20 09/02/18 06:20 09/01/18 10:08 09/02/18 10:24 09/02/18 06:20 Intake and Output: 09/02/18 09/02/18 06:59 18:59 Intake Total 250 Output Total 400 Balance -150 - Medications Medications: Current Medications Acetaminophen (Tylenol 325mg Tab) 650 mg PO Q6 PRN PRN Reason: TEMP>=99.5F Last Admin: 08/30/18 01:53 Dose: 650 mg Acetaminophen (Tylenol 650 Mg Supp) 650 mg RC Q6H PRN PRN Reason: TEMP>=99.5F Acetylcysteine (Acetylcysteine 20%) 4 ml IH [id number] [facility] Last Admin: 09/02/18 13:14 Dose: 4 ml Bisacodyl (Dulcolax) 10 mg RC HS PRN PRN Reason: Constipation Budesonide (Pulmicort Respules) 0.5 mg IH [id number] [facility] Last Admin: 09/02/18 07:31 Dose: 0.5 mg Collagenase (Santyl) 0 gm TOP DAILY [facility] Last Admin: 09/02/18 10:28 Dose: 1 appl Cyanocobalamin (Vitamin B12 1000 Mcg/Ml Inj) 1,000 mcg IM DAILY [facility] Stop: 09/04/18 10:01 Last Admin: 09/02/18 10:25 Dose: 1,000 mcg Enoxaparin Sodium (Lovenox) 40 mg SC DAILY [facility]; Protocol Last Admin: 09/02/18 10:22 Dose: 40 mg Ergocalciferol (Drisdol 50,000 Intl Units Cap) 1 cap PO Q7D [facility] Last Admin: 08/26/18 15:49 Dose: 1 cap Folic Acid (Folic Acid) 1 mg PO DAILY [facility] Last Admin: 09/02/18 10:29 Dose: 1 mg Furosemide (Lasix) 40 mg IVP DAILY [facility] Last Admin: 09/02/18 10:24 Dose: 40 mg Hydrocortisone Sodium Succinate (Solu-Cortef) 50 mg IVP Q8 [facility] Meropenem (Merrem Iv 1 Gm Premix) 1 gm in 50 mls @ 100 mls/hr IVPB Q12 [facility]; Protocol Stop: 09/07/18 10:01 Last Admin: 09/02/18 10:22 Dose: 100 mls/hr Linezolid (Zyvox 600mg/300ml D5w) 600 mg in 300 mls @ 200 mls/hr IVPB Q12 [facility]; Protocol Stop: 09/07/18 10:01 Last Admin: 09/02/18 10:27 Dose: 200 mls/hr NOREPINEPHRINE BIT/0.9 % NACL (Levophed 4 Mg/ 250 Ml Ns Premixed) 4 mg in 250 mls @ 15 mls/hr IV .[id number] PRN; Protocol PRN Reason: TITRATE PER MD ORDER Last Titration: 09/02/18 03:00 Dose: 0 mcg/min, 0 mls/hr Dexmedetomidine HCl (Precedex 400mcg/100ml) 400 mcg in 100 mls @ 3.856 mls/hr IV .Q24H PRN; Protocol PRN Reason: Sedation Last Admin: 09/02/18 00:47 Dose: 0.8 mcg/kg/hr, 15.422 mls/hr Fentanyl Citrate (Fentanyl Citrate/Sodium Chloride 1 Mg/100 Ml) 1,000 mcg in 100 mls @ 5 mls/hr IV .Q20H PRN; Protocol PRN Reason: TITRATE PER MD ORDER Dobutamine HCl/Dextrose (Dobutamine/Dextrose 5% 500mg/250ml) 500 mg in 250 mls @ 5.783 mls/hr IV .Q24H PRN; Protocol PRN Reason: TITRATE PER PROTOCOL Last Admin: 09/01/18 11:45 Dose: 2.5 mcg/kg/min, 5.783 mls/hr Lactic Acid (Lac-Hydrin 12% Cream (140 G)) 0 ea TOP DAILY [facility] Last Admin: 09/02/18 10:29 Dose: 1 applic Levalbuterol HCl (Xopenex) 0.63 mg IH [id number] [facility] Last Admin: 09/02/18 13:14 Dose: 0.63 mg Lorazepam (Ativan) 1 mg IVP Q6H PRN; Protocol PRN Reason: Anxiety Last Admin: 09/02/18 03:35 Dose: 1 mg Metoprolol Tartrate (Lopressor) 50 mg PO Q8H [facility] Last Admin: 08/31/18 10:03 Dose: Not Given Mupirocin (Bactroban Ointment) 0 gm TOP BID [facility] Last Admin: 09/01/18 17:53 Dose: 1 appl Nicotine (Nicoderm Cq) 1 patch TD DAILY [facility] Last Admin: 09/02/18 10:23 Dose: 1 patch Ondansetron HCl (Zofran Inj) 4 mg IVP Q4H PRN PRN Reason: Nausea/Vomiting Pantoprazole Sodium (Protonix Inj) 40 mg IVP DAILY [facility] Last Admin: 09/02/18 10:25 Dose: 40 mg Polyethylene Glycol (Miralax) 17 gm PO DAILY [facility] Last Admin: 09/02/18 10:31 Dose: 17 gm Sodium Hypochlorite (Dakins Solution 0.25%) 0 ml TOP DAILY [facility] Last Admin: 09/01/18 14:00 Dose: 1 applic - Labs Labs: 09/02/18 06:00 09/02/18 06:00 PT 15.1 SECONDS (9.4-12.5) H 08/23/18 22:20 INR 1.36 08/23/18 22:20 APTT 27.9 Seconds (26.9-38.3) 08/23/18 22:20 - Constitutional Appears: Well, Toxic, In Acute Distress - Head Exam Head Exam: ATRAUMATIC, NORMOCEPHALIC - Extremities Exam Additional comments: VASC: DP and PT non-palpable, TG warm to warm bilaterally, significant lymphedema noted bilaterally, non-pitting NEURO: grossly intact DERM: LEFT- 0.5 cm X 0.5 cm wound noted to submetatarsal 1 head, significantly improved, fibrotic base, no drainage, no tunneling, tracking or probe to bone, no malodor, multiple superficial wounds noted to the lateral aspect of the left ankle with 100% granular skin base, no drainage, no probe to bone, no tunneling or tracking, no malodor, chronic skin trophic changes secondary to long standing peripheral vascular disease, no signs of infection noted clinically RIGHT- superficial wound noted to the lateral aspect of the leg at the site of previous chronic skin trophic changes secondary to long standing peripheral vascular disease, wound base 100% granular, no drainage, mild malodor, no tunneling, tracking or probe to bone ORTHO: pain with range of motion, and on palpation to the feet and legs bilaterally Assessment and Plan - Assessment and Plan (Free Text) Assessment: 68 y/o male patient seen and evaluated for bilateral lower extremity wounds Plan: Patient seen and evaluated with Dr. Lloyd Discussed in detail with Dr. Lloyd Afebrile, positive leukocytosis Bilateral foot x-ray ordered-no osteo on xray Patient refused CT and MRI , states it is too painful Patient to be treated with IV Abx as he has osteomyelitis Obtained Left foot wound cultures: MRSA, Morg roxanneanii Wound cleansed with saline and dressed with bactroban, maxorb, adaptic, ABD DSD No podiatric intervention at this time, in our clinical judgement no evidence of osteo, however, cannot be confirmed as patient has refused both MRI/CT Podiatry will continue to follow patient while in house <Kvng Lloyd - Last Filed: 09/03/18 11:59> Objective - Vital Signs/Intake and Output Vital Signs (last 24 hours): Temp Pulse Resp BP Pulse Ox 96.8 F L 91 H 16 137/62 96 09/03/18 07:00 09/03/18 07:00 09/03/18 07:00 09/03/18 10:20 09/03/18 07:00 Intake and Output: 09/03/18 09/03/18 06:59 18:59 Intake Total 672 100 Output Total 350 Balance 322 100 - Medications Medications: Current Medications Acetaminophen (Tylenol 325mg Tab) 650 mg PO Q6 PRN PRN Reason: TEMP>=99.5F Last Admin: 08/30/18 01:53 Dose: 650 mg Acetaminophen (Tylenol 650 Mg Supp) 650 mg RC Q6H PRN PRN Reason: TEMP>=99.5F Acetylcysteine (Acetylcysteine 20%) 4 ml IH [id number] [facility] Last Admin: 09/03/18 07:15 Dose: 4 ml Bisacodyl (Dulcolax) 10 mg RC HS PRN PRN Reason: Constipation Budesonide (Pulmicort Respules) 0.5 mg IH [id number] [facility] Last Admin: 09/03/18 07:15 Dose: 0.5 mg Collagenase (Santyl) 0 gm TOP DAILY [facility] Last Admin: 09/03/18 09:15 Dose: 1 appl Cyanocobalamin (Vitamin B12 1000 Mcg/Ml Inj) 1,000 mcg IM DAILY [facility] Stop: 09/04/18 10:01 Last Admin: 09/03/18 09:10 Dose: 1,000 mcg Enoxaparin Sodium (Lovenox) 40 mg SC DAILY [facility]; Protocol Last Admin: 09/03/18 09:09 Dose: 40 mg Ergocalciferol (Drisdol 50,000 Intl Units Cap) 1 cap PO Q7D [facility] Last Admin: 09/02/18 15:26 Dose: 1 cap Folic Acid (Folic Acid) 1 mg PO DAILY [facility] Last Admin: 09/03/18 09:11 Dose: 1 mg Furosemide (Lasix) 40 mg IVP DAILY [facility] Last Admin: 09/03/18 10:20 Dose: 40 mg Hydrocortisone Sodium Succinate (Solu-Cortef) 50 mg IVP Q12 [facility] Linezolid (Zyvox 600mg/300ml D5w) 600 mg in 300 mls @ 200 mls/hr IVPB Q12 [facility]; Protocol Stop: 09/07/18 10:01 Last Admin: 09/03/18 09:47 Dose: 200 mls/hr NOREPINEPHRINE BIT/0.9 % NACL (Levophed 4 Mg/ 250 Ml Ns Premixed) 4 mg in 250 mls @ 15 mls/hr IV .[id number] PRN; Protocol PRN Reason: TITRATE PER MD ORDER Last Titration: 09/02/18 03:00 Dose: 0 mcg/min, 0 mls/hr Dexmedetomidine HCl (Precedex 400mcg/100ml) 400 mcg in 100 mls @ 3.856 mls/hr IV .Q24H PRN; Protocol PRN Reason: Sedation Last Admin: 09/03/18 07:32 Dose: 0.8 mcg/kg/hr, 15.422 mls/hr Dobutamine HCl/Dextrose (Dobutamine/Dextrose 5% 500mg/250ml) 500 mg in 250 mls @ 5.783 mls/hr IV .Q24H PRN; Protocol PRN Reason: TITRATE PER PROTOCOL Last Admin: 09/03/18 02:41 Dose: 2.5 mcg/kg/min, 5.783 mls/hr Meropenem/Sodium Chloride (Merrem Iv 500 Mg/Ns 50 Ml) 500 mg in 50 mls @ 100 mls/hr IVPB Q12 [facility]; Protocol Stop: 09/08/18 10:01 Last Admin: 09/03/18 10:21 Dose: Not Given Lactic Acid (Lac-Hydrin 12% Cream (140 G)) 0 ea TOP DAILY [facility] Last Admin: 09/03/18 09:16 Dose: 1 applic Levalbuterol HCl (Xopenex) 0.63 mg IH [id number] [facility] Last Admin: 09/03/18 07:15 Dose: 0.63 mg Metoprolol Tartrate (Lopressor) 50 mg PO Q8H [facility] Last Admin: 08/31/18 10:03 Dose: Not Given Mupirocin (Bactroban Ointment) 0 gm TOP BID [facility] Last Admin: 09/03/18 10:18 Dose: 1 appl Nicotine (Nicoderm Cq) 1 patch TD DAILY [facility] Last Admin: 09/03/18 09:13 Dose: 1 patch Ondansetron HCl (Zofran Inj) 4 mg IVP Q4H PRN PRN Reason: Nausea/Vomiting Pantoprazole Sodium (Protonix Inj) 40 mg IVP DAILY [facility] Last Admin: 09/03/18 09:11 Dose: 40 mg Polyethylene Glycol (Miralax) 17 gm PO DAILY [facility] Last Admin: 09/03/18 09:14 Dose: 17 gm Sodium Hypochlorite (Dakins Solution 0.25%) 0 ml TOP DAILY [facility] Last Admin: 09/03/18 09:14 Dose: 1 applic - Labs Labs: 09/03/18 06:00 09/03/18 06:00 PT 15.1 SECONDS (9.4-12.5) H 08/23/18 22:20 INR 1.36 08/23/18 22:20 APTT 27.9 Seconds (26.9-38.3) 08/23/18 22:20 Attending/Attestation - Attestation I have personally seen and examined this patient.: Yes I have fully participated in the care of the patient.: Yes I have reviewed all pertinent clinical information, including history, physical exam and plan: Yes
--- NOTE | 2018-09-02 14:38 | PN ---
DATE: 09/02/2018 SUBJECTIVE: The patient's pressure is better and wants aggressive hydration to discontinue. OBJECTIVE: VITAL SIGNS: Blood pressure is 103/50, heart rates in the 90s. NECK: Negative JVD. LUNGS: Decreased breath sounds bilaterally. HEART: Reveal S1, S2. EXTREMITIES: Without change. LABORATORY DATA: Hemoglobin is 10. Chemistries; BUN and creatinine is 41 and 2.2. IMPRESSION: 1. Respiratory failure. 2. Bilateral pleural effusion. 3. Transient hypotension. 4. Prerenal azotemia. 5. Renal insufficiency. 6. Cellulitis of the lower extremities. Given these findings, I do not believe the patient's respiratory issues related to his heart. His congestive heart failure is not part of the picture. Awaiting pleural fluid analysis. Jero Salamanca MD
--- NOTE | 2018-09-02 14:55 | PN ---
DATE: 09/02/2018 SUBJECTIVE: The patient is in ICU, intubated on a ventilator. The patient is presently on Caden Hugger blanket because of the hypothermia and the temperature dropping to 95.9 to this morning around 1 a.m. PHYSICAL EXAMINATION: VITAL SIGNS: The patient's T-max is 96.3 now from 95.9. Telemetry shows sinus rhythm, sinus tachycardia, heart rate in 80s and 90s.. Telemetry monitoring for the last 12 to 24 hours shows sinus rhythm, heart rate in the 90s. Blood pressure is 119/54, 117/51, 117/60, 120 systolic, 160 systolic has been the average blood pressure in the last 24 hours, O2 sat 95%. The patient is on ventilator with a setting of 2400, PEEP of 10, FIO2 of 50%. HEAD: Normocephalic, atraumatic. HEENT: Shows pinkish pale conjunctiva, positive ET tube, positive NG tube. The patient is sedated on Precedex drip. NECK: No neck rigidity. CHEST: Kyphosis, decreased breath sounds, left more than the right. Positive rhonchi, right-sided upper lung field noted. CARDIOVASCULAR: Shows S1, S2, regular rhythm. Positive systolic murmur, left sternal border, right second intercostal space, left second intercostal space. ABDOMEN: Soft. Positive bowel sound. GENITALIA: Male. Positive Abrams catheter. Lower extremity shows significantly decreased lymphedema and swelling of the lower extremity. Positive poor foot hygiene and dystrophic toenails. NEUROLOGIC: The patient is sedated on Precedex drip. Neurological examination is limited. Gait examination is not tested. DIAGNOSTICS: 09/02/2018: WBC 12.5, hemoglobin and hematocrit 10 and 33, platelets 143. Granulocytes 86% segs. ABG on 50% FIO2, pH of 7.44, pCO2 of 41, pO2 of 65, bicarb 28, saturation of 95% on 50% FIO2. Sodium 130, potassium 4.3, chloride 96, CO2 of 29, anion gap 10, BUN 41, creatinine 2.2, GFR 30, glucose 138. Calcium 7.7, magnesium 1.9. LFTs are normal. Troponin is negative. BNP is 11,200 which has come down from 18,900, total protein 5.4, albumin 2.1. MRSA nondetected in the nares. Blood cultures repeat from the 08/28/2018 and urine cultures from 08/29/2018 are negative. The patient received 1 unit of PRBC. Chest x-ray, 09/02/2018. Chest x-ray was reviewed. EKG from 09/02/2018 is also reviewed. IMPRESSION: 1. Hypothermia. 2. Ventilator-dependent respiratory failure. 3. Respiratory acidosis with hypercarbia, hypoxemia. 4. Acute hypercapnic, hypoxemic, hypercarbic respiratory failure. 5. Sinus tachycardia versus paroxysmal atrial fibrillation. 6. Right bundle-branch block. 7. Improving left-sided atelectasis and left lung collapse. 8. Bilateral multilobar [facility]-acquired pneumonia. 9. Severe sepsis. 10. Status post right internal jugular triple-lumen catheter placement. 11. Hypotension. 12. Leukocytosis with granulocytosis. 13. Relative thrombocytopenia with decreasing platelet count from 349 to 143. 14. Bandemia. 15. Elevated erythrocyte sedimentation rate of 105 and 110. 16. Hypoproliferative bone marrow response. 17 Elevated D-dimer. 18. Acute kidney injury. 19. Acute renal failure. 20. Hyponatremia. 21. Diastolic right-sided congestive heart failure with elevated ProBNP. 22. Mild protein malnutrition and hypoalbuminemia. 23. Hypovitaminosis D. 24. Hypercalcitoninemia. 25. Proteinuria, microscopic hematuria. 26. Bilateral large pleural effusion. 27. Status post right-sided ultrasound-guided thoracentesis with removal of 1700 mL of pleural fluid. 28. Narcotic-dependent pain syndrome. 29. Alcohol, nicotine and marijuana use with urine drug screen positive for opiates and cannabinoids. 30. Morganella morganii, methicillin-resistant Staphylococcus aureus, Providencia rettgeri, Corynebacterium and Proteus penneri right and left lower extremity ulcerations and venous stasis ulceration and cellulitis and wound infection. 31. Anemia. 32. Status post packed red blood cell transfusion. 33. Left ventricular ejection fraction of 52% with borderline left ventricular systolic function and grade 1 abnormal relaxation pattern. 34. Moderately dilated and moderately hypokinetic right ventricle. 35. Severely thickened aortic valve. 36. Moderately thickened mitral valve. 37. [id number] pulmonary hypertension with right ventricular systolic pressure of 62 mmHg. 38. Hypotensive, hypovolemic and septic shock. 39. Sacral decubitus and gluteal decubitus ulceration. 40. Posterior thigh decubitus ulceration. 41. Bilateral lower extremity lymphedema(resolved). 42. Severe deconditioning and gait dysfunction and bedridden status with functional quadriplegia. 43. Nicotine addiction and dependence. 44. Vitamin B12 deficiency. PLAN: At this time, the patient has been ordered serial daily labs. ABGs have been ordered. Blood urine cultures. CURRENT CONSULTATIONS: 1. Surgery. 2. Infectious Disease. 3. Cardiology. 4. Interventional Radiology. 5. Gastroenterology. 6. Hematology/Oncology. 7. Nephrology. 8. Pulmonary. 9. Podiatry. The patient is currently on Mucomyst nebulizer with Xopenex nebulizer every 6 hours, Ativan 1 mg IV every 6 hours p.r.n., Bactroban cream to the affected area, Dakin's solution. The patient is on Precedex drip, dopamine drip by the ICU staff, but Cardiology does not recommend that dopamine drip should be continued, Drisdol 50,000 weekly, Dulcolax 10 mg suppository p.r.n., fentanyl drip, folic acid 1 mg daily, Lac-Hydrin lotion daily, Lopressor 50 mg every 8 hours, Lovenox 40 mg subcu daily, meropenem 1 g IV every 12 hours, MiraLax 17 g daily, nicotine 21 mg daily, Levophed drip 4 mcg per minute, Protonix 40 mg IV daily, Pulmicort 0.5 mg nebulizer every 12 hours, Santyl daily, Solu-Cortef 50 mg IV every 6 hours, Tylenol suppository p.o. every 6 hours p.r.n., vitamin B12 at 1000 mcg IM daily, Zofran 4 IV every 4 hours p.r.n., Zyvox 600 mg IV every 12 hours. Chest x-ray has been ordered daily. At present, the patient is to be maintained on ventilator support. Overall prognosis is guarded to poor. Condition critical. The patient's family still not available. The patient will be continued on the above therapeutic interventions with close followup. TIME SPENT: 35 minutes. Carlos Hernandez MD
--- NOTE | 2018-09-02 15:16 | CARD ---
APPROVED REPORT Date of service: 09/02/2018 EKG Measurement Heart [id number] <Conclusion> Normal sinus rhythm Right bundle branch block Abnormal ECG
[2018-09-02] MEDS: Ergocalciferol 50,000 Intl Units Cap PO SCH (15:26)
[2018-09-02] MEDS: Dakin's Topical 0.25%-Half Strength (480 ml) TOP SCH (15:27)
[2018-09-02] MEDS: Mupirocin 2% Ointment 15 GM TUBE TOP SCH ×2 (15:28→17:53)
--- NOTE | 2018-09-02 20:43 | CP.PCM.PN ---
Subjective - Date & Time of Evaluation Date of Evaluation: 09/02/18 Time of Evaluation: 12:00 - Subjective Subjective: renal note no events overnight UOP improved pressors being weaned off labs reviewed ros: unable to obtain ros as intubated meds reviewed xray s/o pulmonary vascular congestion vitals reviewed aguirre+ intubated ao times0 no jvd HANS, no icterus [id number] vent dep, decreased bs bases abd soft ext unremarkable, foot in dressing FRANCES/ATN/CHF/sepsis syndrome/acute resp failure/hyponatremia frances sec to prerenal ischemia azotemia leading to ATN, he may have been developing contrast induced nephropathy as cr had risen post ct 72 hours later. cr is stable and UOP has slowly improved monitor I&Os maintain hemodynamic stable ok to use lasix for diuresis renal USG pending, can do once more stable hyponatremia: stable monitor please call us [phone] if any qs or concerns Objective - Vital Signs/Intake and Output Vital Signs (last 24 hours): Temp Pulse Resp BP Pulse Ox 97.2 F L 88 20 140/92 H 100 09/02/18 18:00 09/02/18 18:00 09/02/18 18:00 09/02/18 18:00 09/02/18 18:00 Intake and Output: 09/02/18 09/03/18 18:59 06:59 Intake Total 672 100 Output Total 350 Balance 322 100 - Medications Medications: Current Medications Acetaminophen (Tylenol 325mg Tab) 650 mg PO Q6 PRN PRN Reason: TEMP>=99.5F Last Admin: 08/30/18 01:53 Dose: 650 mg Acetaminophen (Tylenol 650 Mg Supp) 650 mg RC Q6H PRN PRN Reason: TEMP>=99.5F Acetylcysteine (Acetylcysteine 20%) 4 ml IH [id number] [facility] Last Admin: 09/02/18 20:13 Dose: 4 ml Bisacodyl (Dulcolax) 10 mg RC HS PRN PRN Reason: Constipation Budesonide (Pulmicort Respules) 0.5 mg IH [id number] [facility] Last Admin: 09/02/18 20:13 Dose: 0.5 mg Collagenase (Santyl) 0 gm TOP DAILY [facility] Last Admin: 09/02/18 10:28 Dose: 1 appl Cyanocobalamin (Vitamin B12 1000 Mcg/Ml Inj) 1,000 mcg IM DAILY [facility] Stop: 09/04/18 10:01 Last Admin: 09/02/18 10:25 Dose: 1,000 mcg Enoxaparin Sodium (Lovenox) 40 mg SC DAILY [facility]; Protocol Last Admin: 09/02/18 10:22 Dose: 40 mg Ergocalciferol (Drisdol 50,000 Intl Units Cap) 1 cap PO Q7D [facility] Last Admin: 09/02/18 15:26 Dose: 1 cap Folic Acid (Folic Acid) 1 mg PO DAILY [facility] Last Admin: 09/02/18 10:29 Dose: 1 mg Furosemide (Lasix) 40 mg IVP DAILY [facility] Last Admin: 09/02/18 10:24 Dose: 40 mg Hydrocortisone Sodium Succinate (Solu-Cortef) 50 mg IVP Q8 [facility] Last Admin: 09/02/18 15:26 Dose: 50 mg Meropenem (Merrem Iv 1 Gm Premix) 1 gm in 50 mls @ 100 mls/hr IVPB Q12 [facility]; Protocol Stop: 09/07/18 10:01 Last Admin: 09/02/18 10:22 Dose: 100 mls/hr Linezolid (Zyvox 600mg/300ml D5w) 600 mg in 300 mls @ 200 mls/hr IVPB Q12 [facility]; Protocol Stop: 09/07/18 10:01 Last Admin: 09/02/18 10:27 Dose: 200 mls/hr NOREPINEPHRINE BIT/0.9 % NACL (Levophed 4 Mg/ 250 Ml Ns Premixed) 4 mg in 250 mls @ 15 mls/hr IV .[id number] PRN; Protocol PRN Reason: TITRATE PER MD ORDER Last Titration: 09/02/18 03:00 Dose: 0 mcg/min, 0 mls/hr Dexmedetomidine HCl (Precedex 400mcg/100ml) 400 mcg in 100 mls @ 3.856 mls/hr IV .Q24H PRN; Protocol PRN Reason: Sedation Last Admin: 09/02/18 19:25 Dose: 0.8 mcg/kg/hr, 15.422 mls/hr Fentanyl Citrate (Fentanyl Citrate/Sodium Chloride 1 Mg/100 Ml) 1,000 mcg in 100 mls @ 5 mls/hr IV .Q20H PRN; Protocol PRN Reason: TITRATE PER MD ORDER Dobutamine HCl/Dextrose (Dobutamine/Dextrose 5% 500mg/250ml) 500 mg in 250 mls @ 5.783 mls/hr IV .Q24H PRN; Protocol PRN Reason: TITRATE PER PROTOCOL Last Admin: 09/01/18 11:45 Dose: 2.5 mcg/kg/min, 5.783 mls/hr Lactic Acid (Lac-Hydrin 12% Cream (140 G)) 0 ea TOP DAILY [facility] Last Admin: 09/02/18 10:29 Dose: 1 applic Levalbuterol HCl (Xopenex) 0.63 mg IH [id number] [facility] Last Admin: 09/02/18 20:13 Dose: 0.63 mg Lorazepam (Ativan) 1 mg IVP Q6H PRN; Protocol PRN Reason: Anxiety Last Admin: 09/02/18 03:35 Dose: 1 mg Metoprolol Tartrate (Lopressor) 50 mg PO Q8H [facility] Last Admin: 08/31/18 10:03 Dose: Not Given Mupirocin (Bactroban Ointment) 0 gm TOP BID [facility] Last Admin: 09/02/18 17:53 Dose: 1 appl Nicotine (Nicoderm Cq) 1 patch TD DAILY [facility] Last Admin: 09/02/18 10:23 Dose: 1 patch Ondansetron HCl (Zofran Inj) 4 mg IVP Q4H PRN PRN Reason: Nausea/Vomiting Pantoprazole Sodium (Protonix Inj) 40 mg IVP DAILY [facility] Last Admin: 09/02/18 10:25 Dose: 40 mg Polyethylene Glycol (Miralax) 17 gm PO DAILY [facility] Last Admin: 09/02/18 10:31 Dose: 17 gm Sodium Hypochlorite (Dakins Solution 0.25%) 0 ml TOP DAILY [facility] Last Admin: 09/02/18 15:27 Dose: 1 applic - Labs Labs: 09/02/18 06:00 09/02/18 06:00 PT 15.1 SECONDS (9.4-12.5) H 08/23/18 22:20 INR 1.36 08/23/18 22:20 APTT 27.9 Seconds (26.9-38.3) 08/23/18 22:20
[2018-09-03] MEDS: Levalbuterol 0.63 MG/3 ML Inhal Soln UD IH SCH ×5 (00:30→21:02)
[2018-09-03] MEDS: Dexmedetomidine 400mcg/100mL 400 MCG/100 ML BOTTLE IV PRN ×3 (01:01→14:05)
[2018-09-03] MEDS: Acetylcysteine 20% Inhal Soln (4ml) IH SCH ×4 (01:09→20:01)
[2018-09-03] MEDS: DOBUTamine 500mg/250ml D5W 500 MG/250 ML BAG IV PRN (02:41)
[2018-09-03 05:30] LABS: ARTERIAL BLOOD GAS HCO3 29.2 mmol/L (21-28); ARTERIAL BLOOD GAS O2 CAPACITY 13.9 mL/dl (16-24); ARTERIAL BLOOD GAS O2 CONTENT 13.7 ML/dl (15-23); ARTERIAL BLOOD GAS O2 SAT 98.9 % (95-98); ARTERIAL BLOOD GAS PCO2 42 mm/Hg (35-45); ARTERIAL BLOOD GAS PH 7.45 (7.35-7.45); ARTERIAL BLOOD GAS TCO2 30.5 mmol.L (22-28)
[2018-09-03] MEDS: Budesonide 0.5 mg/2 ml Inhal Susp UD IH SCH ×2 (07:15→20:02)
[2018-09-03 07:36] LABS: BASO # 0.01 K/mm3 (0.0-2.0); BASO % 0.2 % (0.0-3.0); EOS # 0.2 (0.0-0.7); EOS % 2.6 % (1.5-5.0); HEMOGLOBIN 9.8 g/dL (14.0-18.0); LYMPH # 0.6 (1.2-3.4); LYMPH % 9.5 % (22.0-35.0); MEAN CELL VOLUME 87.4 fl (80.0-105.0); MEAN CORPUSCULAR HEMOGLOBIN 26.8 pg (25.0-35.0); MEAN CORPUSCULAR HGB CONC 30.6 g/dl (31.0-37.0); MEAN PLATELET VOLUME 11.3 fl (7.0-11.0); MONO # 0.5 (0.1-0.6); RBC 3.66 10^6/uL (3.5-6.1); RED CELL DISTRIBUTION WIDTH 14.8 % (11.5-14.5); WHITE BLOOD COUNT 6.4 10^3/uL (4.5-11.0)
[2018-09-03 08:05] LABS: B-TYPE NATRIURETIC PEPTIDE 9400 pg/mL (0-450); TROPONIN I < 0.01 ng/mL
[2018-09-03 08:14] LABS: ALB/GLOB RATIO 0.6 (1.1-1.8); ALBUMIN 2.2 g/dL (3.0-4.8); ALT/SGPT 12 U/L (7-56); AST/SGOT 24 U/L (17-59); BILIRUBIN,DIRECT 0.4 mg/dL (0.0-0.4); BLOOD UREA NITROGEN 51 mg/dL (7-21); CALCIUM 7.9 mg/dL (8.4-10.5); GFR NON-AFRICAN AMERICAN 30
--- NOTE | 2018-09-03 08:32 | CP.PCM.PN ---
Subjective - Date & Time of Evaluation Date of Evaluation: 09/03/18 Time of Evaluation: 08:30 - Subjective Subjective: PGY-[address] Hernandez No acute complained per RN overnight. 350cc/12 hours Objective - Vital Signs/Intake and Output Vital Signs (last 24 hours): Temp Pulse Resp BP Pulse Ox 97.4 F L 95 H 20 139/61 100 09/03/18 06:00 09/03/18 06:00 09/02/18 18:00 09/03/18 02:41 09/02/18 18:00 Intake and Output: 09/03/18 09/03/18 06:59 18:59 Intake Total 672 100 Output Total 350 Balance 322 100 - Medications Medications: Current Medications Acetaminophen (Tylenol 325mg Tab) 650 mg PO Q6 PRN PRN Reason: TEMP>=99.5F Last Admin: 08/30/18 01:53 Dose: 650 mg Acetaminophen (Tylenol 650 Mg Supp) 650 mg RC Q6H PRN PRN Reason: TEMP>=99.5F Acetylcysteine (Acetylcysteine 20%) 4 ml IH [id number] [facility] Last Admin: 09/03/18 07:15 Dose: 4 ml Bisacodyl (Dulcolax) 10 mg RC HS PRN PRN Reason: Constipation Budesonide (Pulmicort Respules) 0.5 mg IH [id number] [facility] Last Admin: 09/03/18 07:15 Dose: 0.5 mg Collagenase (Santyl) 0 gm TOP DAILY [facility] Last Admin: 09/02/18 10:28 Dose: 1 appl Cyanocobalamin (Vitamin B12 1000 Mcg/Ml Inj) 1,000 mcg IM DAILY [facility] Stop: 09/04/18 10:01 Last Admin: 09/02/18 10:25 Dose: 1,000 mcg Enoxaparin Sodium (Lovenox) 40 mg SC DAILY [facility]; Protocol Last Admin: 09/02/18 10:22 Dose: 40 mg Ergocalciferol (Drisdol 50,000 Intl Units Cap) 1 cap PO Q7D [facility] Last Admin: 09/02/18 15:26 Dose: 1 cap Folic Acid (Folic Acid) 1 mg PO DAILY [facility] Last Admin: 09/02/18 10:29 Dose: 1 mg Furosemide (Lasix) 40 mg IVP DAILY [facility] Last Admin: 09/02/18 10:24 Dose: 40 mg Hydrocortisone Sodium Succinate (Solu-Cortef) 50 mg IVP Q8 [facility] Last Admin: 09/03/18 06:07 Dose: 50 mg Meropenem (Merrem Iv 1 Gm Premix) 1 gm in 50 mls @ 100 mls/hr IVPB Q12 [facility]; Protocol Stop: 09/07/18 10:01 Last Admin: 09/02/18 21:28 Dose: 100 mls/hr Linezolid (Zyvox 600mg/300ml D5w) 600 mg in 300 mls @ 200 mls/hr IVPB Q12 [facility]; Protocol Stop: 09/07/18 10:01 Last Admin: 09/02/18 21:25 Dose: 200 mls/hr NOREPINEPHRINE BIT/0.9 % NACL (Levophed 4 Mg/ 250 Ml Ns Premixed) 4 mg in 250 mls @ 15 mls/hr IV .[id number] PRN; Protocol PRN Reason: TITRATE PER MD ORDER Last Titration: 09/02/18 03:00 Dose: 0 mcg/min, 0 mls/hr Dexmedetomidine HCl (Precedex 400mcg/100ml) 400 mcg in 100 mls @ 3.856 mls/hr IV .Q24H PRN; Protocol PRN Reason: Sedation Last Admin: 09/03/18 07:32 Dose: 0.8 mcg/kg/hr, 15.422 mls/hr Fentanyl Citrate (Fentanyl Citrate/Sodium Chloride 1 Mg/100 Ml) 1,000 mcg in 100 mls @ 5 mls/hr IV .Q20H PRN; Protocol PRN Reason: TITRATE PER MD ORDER Dobutamine HCl/Dextrose (Dobutamine/Dextrose 5% 500mg/250ml) 500 mg in 250 mls @ 5.783 mls/hr IV .Q24H PRN; Protocol PRN Reason: TITRATE PER PROTOCOL Last Admin: 09/03/18 02:41 Dose: 2.5 mcg/kg/min, 5.783 mls/hr Lactic Acid (Lac-Hydrin 12% Cream (140 G)) 0 ea TOP DAILY [facility] Last Admin: 09/02/18 10:29 Dose: 1 applic Levalbuterol HCl (Xopenex) 0.63 mg IH [id number] [facility] Last Admin: 09/03/18 07:15 Dose: 0.63 mg Lorazepam (Ativan) 1 mg IVP Q6H PRN; Protocol PRN Reason: Anxiety Last Admin: 09/02/18 03:35 Dose: 1 mg Metoprolol Tartrate (Lopressor) 50 mg PO Q8H [facility] Last Admin: 08/31/18 10:03 Dose: Not Given Mupirocin (Bactroban Ointment) 0 gm TOP BID [facility] Last Admin: 09/02/18 17:53 Dose: 1 appl Nicotine (Nicoderm Cq) 1 patch TD DAILY [facility] Last Admin: 09/02/18 10:23 Dose: 1 patch Ondansetron HCl (Zofran Inj) 4 mg IVP Q4H PRN PRN Reason: Nausea/Vomiting Pantoprazole Sodium (Protonix Inj) 40 mg IVP DAILY [facility] Last Admin: 09/02/18 10:25 Dose: 40 mg Polyethylene Glycol (Miralax) 17 gm PO DAILY [facility] Last Admin: 09/02/18 10:31 Dose: 17 gm Sodium Hypochlorite (Dakins Solution 0.25%) 0 ml TOP DAILY [facility] Last Admin: 09/02/18 15:27 Dose: 1 applic - Labs Labs: 09/03/18 06:00 09/03/18 06:00 PT 15.1 SECONDS (9.4-12.5) H 08/23/18 22:20 INR 1.36 08/23/18 22:20 APTT 27.9 Seconds (26.9-38.3) 08/23/18 22:20 - Constitutional Appears: Other (intubated) - Head Exam Head Exam: ATRAUMATIC, NORMAL INSPECTION, NORMOCEPHALIC - Eye Exam Eye Exam: Normal appearance, PERRL. absent: Scleral icterus Pupil Exam: NORMAL ACCOMODATION - ENT Exam ENT Exam: Mucous Membranes Moist - Neck Exam Additional comments: supple - Respiratory Exam Respiratory Exam: Decreased Breath Sounds, Rhonchi - Cardiovascular Exam Cardiovascular Exam: REGULAR RHYTHM, +S2 - GI/Abdominal Exam GI & Abdominal Exam: Soft, Hypoactive Bowel Sounds - Extremities Exam Extremities Exam: Pedal Edema - Neurological Exam Additional comments: intubated sedated - Psychiatric Exam Psychiatric exam: Normal Affect, Normal Mood - Skin Skin Exam: Dry Additional comments: cool Assessment and Plan - Assessment and Plan (Free Text) Plan: Mr Dodd, 68M, with PMhx penicillin allergy, chronic back pain and vertebral disc disease admitted for b/l foot cellulitis r/o osteomyelitis and L thigh decubitus. During the hospital stay, he developes hypoxemic hypercapnic respiratory distress requiring high flow and BIPAP. He deveople acute CHF complicated by large b/l pleural effusion and suspected pneumonia with sepsis and high procalcitonin. He refused thoracentesis (08/30) He is upgraded to ICU on 07/10 for AMS with increased lethargy and low BP. He was in shock, sepsis vs cardiogenic, on levophed/vasopressin/stress steroid, now off these pressors, but continued on dobutamin gtt. He had oliguria and FRANCES from low BP. As for pulm, he received thoracentesis by bedside (08/31) 1700cc drained from R side, flores sudative. He was intubated on 08/31 for Hypercapnic hypoxemic respiratory distress. Venous congestion slowly improves on lasix. Hypercapnic hypoxemic respiratory distress, intubated day 4 - [ ] f/u ICU for breathing tral Shock, septic vs cardiogranic - Had rule out obstructive from PE (negative CTA- chest) Possible Septic shock due to HAP with b/l foot cellulitis which grew MRSA. PLUS multiple decubitus ulcers - Linezolid/Merem (day 4) s/p vancomycin s/p tapering solucortef - SRINIVAS was only mildly abnormal at rest, possible PAD. - For sacral decubitus stage 3, L thigh, he is on santyl and local wound care. No osteomyelitis - pt refuses foot MRI to r/o osteomyelitis. 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 RVSP 62. RV hypokinetic/dilated - Questionable RHF - Hold beta lisa due to acute heart failure FRANCES, likely ATN from hypoperfusion/low BP - strict i/o. trend cre/bun He is anemic with Hb 8.4 on 08/25. He got 1u pRBC, s/p 5 days of Fe IV Hyponatermia, mild, asymptomatci, s/p NS@50. Stop IVF for now due to deSat. For anxiety, he is on ativan PRN For tobacco addition, counseled for cessation/on nicoderm dispo plan: PT recommends [facility]. [ ] Antibiotics. [ ] cytology from pleural effusion [ ] Pending daughter contact info s/r/d/w Dr Hernandez
--- NOTE | 2018-09-03 08:37 | CP.PCM.PN ---
Subjective - Date & Time of Evaluation Date of Evaluation: 09/03/18 Time of Evaluation: 07:40 - Subjective Subjective: (covering for Dr. Hernandez) Patient is seen this morning in the intensive care unit bed 4. He is intubated, but awake and alert. Objective - Vital Signs/Intake and Output Vital Signs (last 24 hours): Temp Pulse Resp BP Pulse Ox 97.4 F L 95 H 20 139/61 100 09/03/18 06:00 09/03/18 06:00 09/02/18 18:00 09/03/18 02:41 09/02/18 18:00 Intake and Output: 09/03/18 09/03/18 06:59 18:59 Intake Total 672 100 Output Total 350 Balance 322 100 - Medications Medications: Current Medications Acetaminophen (Tylenol 325mg Tab) 650 mg PO Q6 PRN PRN Reason: TEMP>=99.5F Last Admin: 08/30/18 01:53 Dose: 650 mg Acetaminophen (Tylenol 650 Mg Supp) 650 mg RC Q6H PRN PRN Reason: TEMP>=99.5F Acetylcysteine (Acetylcysteine 20%) 4 ml IH [id number] [facility] Last Admin: 09/03/18 07:15 Dose: 4 ml Bisacodyl (Dulcolax) 10 mg RC HS PRN PRN Reason: Constipation Budesonide (Pulmicort Respules) 0.5 mg IH [id number] [facility] Last Admin: 09/03/18 07:15 Dose: 0.5 mg Collagenase (Santyl) 0 gm TOP DAILY [facility] Last Admin: 09/02/18 10:28 Dose: 1 appl Cyanocobalamin (Vitamin B12 1000 Mcg/Ml Inj) 1,000 mcg IM DAILY [facility] Stop: 09/04/18 10:01 Last Admin: 09/02/18 10:25 Dose: 1,000 mcg Enoxaparin Sodium (Lovenox) 40 mg SC DAILY [facility]; Protocol Last Admin: 09/02/18 10:22 Dose: 40 mg Ergocalciferol (Drisdol 50,000 Intl Units Cap) 1 cap PO Q7D [facility] Last Admin: 09/02/18 15:26 Dose: 1 cap Folic Acid (Folic Acid) 1 mg PO DAILY [facility] Last Admin: 09/02/18 10:29 Dose: 1 mg Furosemide (Lasix) 40 mg IVP DAILY [facility] Last Admin: 09/02/18 10:24 Dose: 40 mg Hydrocortisone Sodium Succinate (Solu-Cortef) 50 mg IVP Q8 [facility] Last Admin: 09/03/18 06:07 Dose: 50 mg Meropenem (Merrem Iv 1 Gm Premix) 1 gm in 50 mls @ 100 mls/hr IVPB Q12 [facility]; Protocol Stop: 09/07/18 10:01 Last Admin: 09/02/18 21:28 Dose: 100 mls/hr Linezolid (Zyvox 600mg/300ml D5w) 600 mg in 300 mls @ 200 mls/hr IVPB Q12 [facility]; Protocol Stop: 09/07/18 10:01 Last Admin: 09/02/18 21:25 Dose: 200 mls/hr NOREPINEPHRINE BIT/0.9 % NACL (Levophed 4 Mg/ 250 Ml Ns Premixed) 4 mg in 250 mls @ 15 mls/hr IV .[id number] PRN; Protocol PRN Reason: TITRATE PER MD ORDER Last Titration: 09/02/18 03:00 Dose: 0 mcg/min, 0 mls/hr Dexmedetomidine HCl (Precedex 400mcg/100ml) 400 mcg in 100 mls @ 3.856 mls/hr IV .Q24H PRN; Protocol PRN Reason: Sedation Last Admin: 09/03/18 07:32 Dose: 0.8 mcg/kg/hr, 15.422 mls/hr Fentanyl Citrate (Fentanyl Citrate/Sodium Chloride 1 Mg/100 Ml) 1,000 mcg in 100 mls @ 5 mls/hr IV .Q20H PRN; Protocol PRN Reason: TITRATE PER MD ORDER Dobutamine HCl/Dextrose (Dobutamine/Dextrose 5% 500mg/250ml) 500 mg in 250 mls @ 5.783 mls/hr IV .Q24H PRN; Protocol PRN Reason: TITRATE PER PROTOCOL Last Admin: 09/03/18 02:41 Dose: 2.5 mcg/kg/min, 5.783 mls/hr Lactic Acid (Lac-Hydrin 12% Cream (140 G)) 0 ea TOP DAILY [facility] Last Admin: 09/02/18 10:29 Dose: 1 applic Levalbuterol HCl (Xopenex) 0.63 mg IH [id number] [facility] Last Admin: 09/03/18 07:15 Dose: 0.63 mg Lorazepam (Ativan) 1 mg IVP Q6H PRN; Protocol PRN Reason: Anxiety Last Admin: 09/02/18 03:35 Dose: 1 mg Metoprolol Tartrate (Lopressor) 50 mg PO Q8H [facility] Last Admin: 08/31/18 10:03 Dose: Not Given Mupirocin (Bactroban Ointment) 0 gm TOP BID [facility] Last Admin: 09/02/18 17:53 Dose: 1 appl Nicotine (Nicoderm Cq) 1 patch TD DAILY [facility] Last Admin: 09/02/18 10:23 Dose: 1 patch Ondansetron HCl (Zofran Inj) 4 mg IVP Q4H PRN PRN Reason: Nausea/Vomiting Pantoprazole Sodium (Protonix Inj) 40 mg IVP DAILY [facility] Last Admin: 09/02/18 10:25 Dose: 40 mg Polyethylene Glycol (Miralax) 17 gm PO DAILY [facility] Last Admin: 09/02/18 10:31 Dose: 17 gm Sodium Hypochlorite (Dakins Solution 0.25%) 0 ml TOP DAILY [facility] Last Admin: 09/02/18 15:27 Dose: 1 applic - Labs Labs: 09/03/18 06:00 09/03/18 06:00 PT 15.1 SECONDS (9.4-12.5) H 08/23/18 22:20 INR 1.36 08/23/18 22:20 APTT 27.9 Seconds (26.9-38.3) 08/23/18 22:20 - Constitutional Appears: No Acute Distress - ENT Exam Additional comments: + ET tube - Respiratory Exam Respiratory Exam: Decreased Breath Sounds, NORMAL BREATHING PATTERN - Cardiovascular Exam Cardiovascular Exam: +S1, +S2 - GI/Abdominal Exam GI & Abdominal Exam: Soft, Normal Bowel Sounds. absent: Tenderness - Neurological Exam Neurological Exam: Alert, Awake Assessment and Plan - Assessment and Plan (Free Text) Assessment: Ventilator dependent respiratory failure Acute congestive heart failure Bilateral pneumonia Sepsis BL lower extremity ulcerations, venous stasis and infected wounds Plan: Patient is currently intubated. Wean off ventilator as per critical care. continue wound care as per podiatry continue Lasix IV continue antibiotics as per infectious disease. Patient is currently on IV Merrem. Surgery, Infectious disease, cardiology, interventional radiology, GI, Hematology/Oncology, Nephrology, Pulmonary, and Podiatry are on the case
[2018-09-03] MEDS: Enoxaparin 40 mg Syringe SC SCH (09:09)
[2018-09-03] MEDS: Meropenem IV 1 gm in NS 1 GM/50 ML BAG IVPB SCH (09:10)
[2018-09-03] MEDS: POLYETHYLENE GLYCOL 3350 17 GM/Dose PACKET PO SCH (09:14)
[2018-09-03] MEDS: Dakin's Topical 0.25%-Half Strength (480 ml) TOP SCH (09:14)
[2018-09-03] MEDS: Collagenase 250 Units/gm Ointment(30 gm) TOP SCH (09:15)
[2018-09-03] MEDS: Ammonium Lactate 12% Cream (140 g) TOP SCH (09:16)
--- NOTE | 2018-09-03 09:20 | CP.CCUPN ---
<Augusto Zimmerman - Last Filed: 09/03/18 13:37> CCU Subjective - Physician Review Subjective (Free Text): 09/01/18 12:01 Augusto Zimmerman, PGY-1 ICU Progress Note for Dr. Angel: Pt was seen and examined this AM by ICU team. Overnight the pt had no acute issues. Pt is currently intubated with central line in place. Last night pt was able to be weaned off of levophed, holding pressures well today. Was extubated this AM and the pt denies any acute complaints after being extubated. CCU Objective - Vital Signs / Intake & Output Vital Signs (Last 4 hours): Vital Signs Temp Pulse Resp Pulse Ox 09/03/18 07:00 96.8 F L 91 H 16 96 09/03/18 06:00 97.4 F L 95 H Intake and Output (Last 8hrs): Intake & Output 09/02/18 09/03/18 09/03/18 22:59 06:59 14:59 Intake Total 672 572 100 Output Total 350 350 Balance 322 222 100 Intake: IV 672 572 100 Right Internal Jugular 572 222 Oral 0 Output: Urine 350 350 2-way Urethral 350 350 Stool 0 Emesis 0 - Physical Exam Head: Positive for: Atraumatic, Normocephalic Pupils: Positive for: PERRL Extroacular Muscles: Positive for: EOMI Conjunctiva: Positive for: Normal Mouth: Positive for: Moist Mucous Membranes Neck: Positive for: Normal Range of Motion Respiratory/Chest: Positive for: Decreased Breath Sounds. Negative for: Respiratory Distress, Accessory Muscle Use, Wheezes, Rales, Rhonchi Cardiovascular: Positive for: Regular Rate and Rhythm, Normal S1, S2. Negative for: Murmurs Abdomen: Positive for: Normal Bowel Sounds. Negative for: Tenderness, Distention, Peritoneal Signs Back: Positive for: Decubitus Ulcer (Sacral) Upper Extremity: Positive for: Normal Inspection. Negative for: Cyanosis, Edema Lower Extremity: Positive for: Normal Inspection, Normal ROM, Other (2 large skin decubiti on the posterior thighs bilaterally, both infected with lang rrounding erythema) Neurological: Positive for: GCS=15, CN II-XII Intact, Speech Normal Skin: Positive for: Warm, Dry, Normal Color. Negative for: Rashes Psychiatric: Positive for: Alert, Oriented x 3, Normal Insight, Normal Concentration - Medications Active Medications: Active Medications Generic Name Dose Route Start Last Admin Trade Name Freq PRN Reason Stop Dose Admin Acetaminophen 650 mg 08/24/18 00:04 08/30/18 01:53 Tylenol 325mg Tab PO 650 mg Q6 PRN Administration TEMP>=99.5F Acetaminophen 650 mg 08/24/18 00:04 Tylenol 650 Mg Supp RC Q6H PRN TEMP>=99.5F Acetylcysteine 4 ml 08/24/18 09:00 09/03/18 07:15 Acetylcysteine 20% IH 4 ml [id number] CASSY Administration Bisacodyl 10 mg 08/28/18 12:39 Dulcolax RC HS PRN Constipation Budesonide 0.5 mg 09/02/18 08:00 09/03/18 07:15 Pulmicort Respules IH 0.5 mg [id number] CASSY Administration Collagenase 0 gm 08/25/18 10:00 09/03/18 09:15 Santyl TOP 1 appl DAILY CASSY Administration Cyanocobalamin 1,000 mcg 08/26/18 15:00 09/03/18 09:10 Vitamin B12 1000 Mcg/Ml Inj IM 09/04/18 10:01 1,000 mcg DAILY CASSY Administration Enoxaparin Sodium 40 mg 08/31/18 10:00 09/03/18 09:09 Lovenox SC 40 mg DAILY CASSY Administration Protocol Ergocalciferol 1 cap 08/26/18 15:00 09/02/18 15:26 Drisdol 50,000 Intl Units Cap PO 1 cap Q7D CASSY Administration Folic Acid 1 mg 08/26/18 15:00 09/03/18 09:11 Folic Acid PO 1 mg DAILY CASSY Administration Furosemide 40 mg 09/02/18 10:00 09/02/18 10:24 Lasix IVP 40 mg DAILY CASSY Administration Hydrocortisone Sodium Succinate 50 mg 09/02/18 14:00 09/03/18 06:07 Solu-Cortef IVP 50 mg Q8 CASSY Administration Meropenem 1 gm in 50 mls @ 100 mls/hr 08/31/18 10:00 09/03/18 09:10 Merrem Iv 1 Gm Premix IVPB 09/07/18 10:01 100 mls/hr Q12 CASSY Administration Protocol Linezolid 600 mg in 300 mls @ 200 mls/hr 08/31/18 10:00 09/02/18 21:25 Zyvox 600mg/300ml D5w IVPB 09/07/18 10:01 200 mls/hr Q12 CASSY Administration Protocol NOREPINEPHRINE BIT/0.9 % NACL 4 mg in 250 mls @ 15 mls/hr 08/31/18 09:26 09/02/18 03:00 Levophed 4 Mg/ 250 Ml Ns Premixed IV 0 mcg/min .[id number] PRN 0 mls/hr TITRATE PER MD ORDER Titration Protocol 4 MCG/MIN Dexmedetomidine HCl 400 mcg in 100 mls @ 3.856 mls/hr 08/31/18 16:50 09/03/18 07:32 Precedex 400mcg/100ml IV 0.8 mcg/kg/hr .Q24H PRN 15.422 mls/hr Sedation Administration Protocol 0.2 MCG/KG/HR Fentanyl Citrate 1,000 mcg in 100 mls @ 5 mls/hr 09/01/18 10:23 Fentanyl Citrate/Sodium Chloride 1 Mg/100 Ml IV .Q20H PRN TITRATE PER MD ORDER Protocol 50 MCG/HR Dobutamine HCl/Dextrose 500 mg in 250 mls @ 5.783 mls/hr 09/01/18 11:23 09/03/18 02:41 Dobutamine/Dextrose 5% 500mg/250ml IV 2.5 mcg/kg/min .Q24H PRN 5.783 mls/hr TITRATE PER PROTOCOL Administration Protocol 2.5 MCG/KG/MIN Lactic Acid 0 ea 08/28/18 11:45 09/03/18 09:16 Lac-Hydrin 12% Cream (140 G) TOP 1 applic DAILY CASSY Administration Levalbuterol HCl 0.63 mg 08/24/18 09:00 09/03/18 07:15 Xopenex IH 0.63 mg [id number] CASSY Administration Lorazepam 1 mg 08/25/18 21:21 09/02/18 03:35 Ativan IVP 1 mg Q6H PRN Administration Anxiety Protocol Metoprolol Tartrate 50 mg 08/30/18 09:00 08/31/18 10:03 Lopressor PO Not Given Q8H CASSY Mupirocin 0 gm 08/25/18 10:00 09/02/18 17:53 Bactroban Ointment TOP 1 appl BID CASSY Administration Nicotine 1 patch 08/24/18 10:00 09/03/18 09:13 Nicoderm Cq TD 1 patch DAILY CASSY Administration Ondansetron HCl 4 mg 08/24/18 00:04 Zofran Inj IVP Q4H PRN Nausea/Vomiting Pantoprazole Sodium 40 mg 09/02/18 10:00 09/03/18 09:11 Protonix Inj IVP 40 mg DAILY CASSY Administration Polyethylene Glycol 17 gm 08/31/18 10:00 09/03/18 09:14 Miralax PO 17 gm DAILY CASSY Administration Sodium Hypochlorite 0 ml 09/01/18 13:00 09/03/18 09:14 Dakins Solution 0.25% TOP 1 applic DAILY CASSY Administration - Patient Studies Lab Studies: Microbiology Studies 08/28/18 22:00 Blood Culture - Final Blood NO GROWTH AFTER 5 DAYS Gram Stain - Final TEST NOT PERFORMED 08/28/18 22:33 Blood Culture - Final Blood NO GROWTH AFTER 5 DAYS Gram Stain - Final TEST NOT PERFORMED 08/30/18 12:50 Blood Culture - Preliminary Blood-Venous NO GROWTH AFTER 3 DAYS 08/30/18 11:20 Blood Culture - Preliminary Blood-Venous NO GROWTH AFTER 3 DAYS 08/31/18 21:48 Urine Culture - Final Urine,Abrams No Growth (<1,000 CFU/ML) Lab Studies 09/03/18 09/03/18 09/03/18 Range/Units 06:00 06:00 05:10 WBC 6.4 D (4.5-11.0) 10^3/uL RBC 3.66 (3.5-6.1) 10^6/uL Hgb 9.8 L (14.0-18.0) g/dL Hct 32.0 L (42.0-52.0) % MCV 87.4 (80.0-105.0) fl MCH 26.8 (25.0-35.0) pg MCHC 30.6 L (31.0-37.0) g/dl RDW 14.8 H (11.5-14.5) % Plt Count 143 (120.0-450.0) 10^3/uL MPV 11.3 H (7.0-11.0) fl Neut % (Auto) 80.7 H (50.0-68.0) % Lymph % (Auto) 9.5 L (22.0-35.0) % Emanuel % (Auto) 7.0 H (1.0-6.0) % Eos % (Auto) 2.6 (1.5-5.0) % Baso % (Auto) 0.2 (0.0-3.0) % Lymph # (Auto) 0.6 L (1.2-3.4) Emanuel # (Auto) 0.5 (0.1-0.6) Eos # (Auto) 0.2 (0.0-0.7) Baso # (Auto) 0.01 (0.0-2.0) K/mm3 Absolute Neuts (auto) 5.18 (1.4-6.5) pCO2 42 (35-45) mm/Hg pO2 114.0 H (80-100) mm/Hg HCO3 29.2 H (21-28) mmol/L ABG pH 7.45 (7.35-7.45) ABG Total CO2 30.5 H (22-28) mmol.L ABG O2 Saturation 98.9 H (95-98) % ABG O2 Content 13.7 L (15-23) ML/dl ABG Base Excess 4.7 H (-2.0-3.0) mmol/L ABG Hemoglobin 10.0 L (11.7-17.4) g/dL ABG Carboxyhemoglobin 1.3 (0.5-1.5) % POC ABG HHb (Measured) 1.1 (0-5) % ABG Methemoglobin 1.5 (0.0-3.0) % ABG O2 Capacity 13.9 L (16-24) mL/dl Hgb O2 Saturation 96.1 (95.0-98.0) % FiO2 60.0 % Sodium 133 (132-148) mmol/L Potassium 4.2 (3.6-5.0) mmol/L Chloride 97 L (98-107) mmol/L Carbon Dioxide 30 (21-33) mmol/L Anion Gap 11 (10-20) BUN 51 H (7-21) mg/dL Creatinine 2.2 H (0.8-1.5) mg/dl Est GFR ( Amer) 36 Est GFR (Non-Af Amer) 30 Random Glucose 128 H (70-110) mg/dL Calcium 7.9 L (8.4-10.5) mg/dL Magnesium 1.9 (1.7-2.2) mg/dL Total Bilirubin 0.5 (0.2-1.3) mg/dL Direct Bilirubin 0.4 (0.0-0.4) mg/dL AST 24 (17-59) U/L ALT 12 (7-56) U/L Alkaline Phosphatase 73 (38-126) U/L Total Creatine Kinase 23 L (35-230) U/L Troponin I < 0.01 ng/mL NT-Pro-B Natriuret Pep 9400 H (0-450) pg/mL Total Protein 5.8 (5.8-8.3) g/dL Albumin 2.2 L (3.0-4.8) g/dL Globulin 3.6 gm/dL Albumin/Globulin Ratio 0.6 L (1.1-1.8) Urine Chloride (32-290) mmol/L Pleural Total Protein g/dL Pleural LDH U/L 09/01/18 08/31/18 08/31/18 Range/Units 13:55 12:45 12:45 WBC (4.5-11.0) 10^3/uL RBC (3.5-6.1) 10^6/uL Hgb (14.0-18.0) g/dL Hct (42.0-52.0) % MCV (80.0-105.0) fl MCH (25.0-35.0) pg MCHC (31.0-37.0) g/dl RDW (11.5-14.5) % Plt Count (120.0-450.0) 10^3/uL MPV (7.0-11.0) fl Neut % (Auto) (50.0-68.0) % Lymph % (Auto) (22.0-35.0) % Emanuel % (Auto) (1.0-6.0) % Eos % (Auto) (1.5-5.0) % Baso % (Auto) (0.0-3.0) % Lymph # (Auto) (1.2-3.4) Emanuel # (Auto) (0.1-0.6) Eos # (Auto) (0.0-0.7) Baso # (Auto) (0.0-2.0) K/mm3 Absolute Neuts (auto) (1.4-6.5) pCO2 (35-45) mm/Hg pO2 (80-100) mm/Hg HCO3 (21-28) mmol/L ABG pH (7.35-7.45) ABG Total CO2 (22-28) mmol.L ABG O2 Saturation (95-98) % ABG O2 Content (15-23) ML/dl ABG Base Excess (-2.0-3.0) mmol/L ABG Hemoglobin (11.7-17.4) g/dL ABG Carboxyhemoglobin (0.5-1.5) % POC ABG HHb (Measured) (0-5) % ABG Methemoglobin (0.0-3.0) % ABG O2 Capacity (16-24) mL/dl Hgb O2 Saturation (95.0-98.0) % FiO2 % Sodium (132-148) mmol/L Potassium (3.6-5.0) mmol/L Chloride (98-107) mmol/L Carbon Dioxide (21-33) mmol/L Anion Gap (10-20) BUN (7-21) mg/dL Creatinine (0.8-1.5) mg/dl Est GFR ( Amer) Est GFR (Non-Af Amer) Random Glucose (70-110) mg/dL Calcium (8.4-10.5) mg/dL Magnesium (1.7-2.2) mg/dL Total Bilirubin (0.2-1.3) mg/dL Direct Bilirubin (0.0-0.4) mg/dL AST (17-59) U/L ALT (7-56) U/L Alkaline Phosphatase (38-126) U/L Total Creatine Kinase (35-230) U/L Troponin I ng/mL NT-Pro-B Natriuret Pep (0-450) pg/mL Total Protein (5.8-8.3) g/dL Albumin (3.0-4.8) g/dL Globulin gm/dL Albumin/Globulin Ratio (1.1-1.8) Urine Chloride 121 (32-290) mmol/L Pleural Total Protein <3.0 g/dL Pleural LDH 47 U/L Laboratory Results - last 24 hr 08/31/18 08/31/18 09/01/18 12:45 12:45 13:55 WBC RBC Hgb Hct MCV MCH MCHC RDW Plt Count MPV Neut % (Auto) Lymph % (Auto) Emanuel % (Auto) Eos % (Auto) Baso % (Auto) Lymph # (Auto) Emanuel # (Auto) Eos # (Auto) Baso # (Auto) Absolute Neuts (auto) pCO2 pO2 HCO3 ABG pH ABG Total CO2 ABG O2 Saturation ABG O2 Content ABG Base Excess ABG Hemoglobin ABG Carboxyhemoglobin POC ABG HHb (Measured) ABG Methemoglobin ABG O2 Capacity Hgb O2 Saturation FiO2 Sodium Potassium Chloride Carbon Dioxide Anion Gap BUN Creatinine Est GFR ( Amer) Est GFR (Non-Af Amer) Random Glucose Calcium Magnesium Total Bilirubin Direct Bilirubin AST ALT Alkaline Phosphatase Total Creatine Kinase Troponin I NT-Pro-B Natriuret Pep Total Protein Albumin Globulin Albumin/Globulin Ratio Urine Chloride 121 Pleural Total Protein <3.0 Pleural LDH 47 09/03/18 09/03/18 09/03/18 05:10 06:00 06:00 WBC 6.4 D RBC 3.66 Hgb 9.8 L Hct 32.0 L MCV 87.4 MCH 26.8 MCHC 30.6 L RDW 14.8 H Plt Count 143 MPV 11.3 H Neut % (Auto) 80.7 H Lymph % (Auto) 9.5 L Emanuel % (Auto) 7.0 H Eos % (Auto) 2.6 Baso % (Auto) 0.2 Lymph # (Auto) 0.6 L Emanuel # (Auto) 0.5 Eos # (Auto) 0.2 Baso # (Auto) 0.01 Absolute Neuts (auto) 5.18 pCO2 42 pO2 114.0 H HCO3 29.2 H ABG pH 7.45 ABG Total CO2 30.5 H ABG O2 Saturation 98.9 H ABG O2 Content 13.7 L ABG Base Excess 4.7 H ABG Hemoglobin 10.0 L ABG Carboxyhemoglobin 1.3 POC ABG HHb (Measured) 1.1 ABG Methemoglobin 1.5 ABG O2 Capacity 13.9 L Hgb O2 Saturation 96.1 FiO2 60.0 Sodium 133 Potassium 4.2 Chloride 97 L Carbon Dioxide 30 Anion Gap 11 BUN 51 H Creatinine 2.2 H Est GFR ( Amer) 36 Est GFR (Non-Af Amer) 30 Random Glucose 128 H Calcium 7.9 L Magnesium 1.9 Total Bilirubin 0.5 Direct Bilirubin 0.4 AST 24 ALT 12 Alkaline Phosphatase 73 Total Creatine Kinase 23 L Troponin I < 0.01 NT-Pro-B Natriuret Pep 9400 H Total Protein 5.8 Albumin 2.2 L Globulin 3.6 Albumin/Globulin Ratio 0.6 L Urine Chloride Pleural Total Protein Pleural LDH EKG/Cardiology Studies: Cardiology / EKG Studies 09/03/18 07:00 ELECTROCARDIOGRAM DAILY Comment: Reason For Exam: CHF Review of Systems - Review of Systems Systems not reviewed;Unavailable: Intubated Critical Care Progress Note - Nutrition Nutrition: Nutrition Category Date Time Status NPO Diet [DIET] Diets 09/01/18 Lunch Ordered Assessment/Plan - Assessment and Plan (Free Text) Assessment: Pt is a 68 yo M with pmhx of chronic back pain and vertebral disc disease who presented to the [facility] ED for complaints of b/l foot pain and back pain. ICU is consulted for management of pts acute hypercapnic respiratory failure and AMS. Pt had R thoracentesis done 08/31, pt was also intubated due to continued resp acidosis even on 100% FiO2 on Bipap. Pt is now weaned off of levophed, still on dobutamine and precedex. Pt is now extubated and sating well. Plan: Neuro: - AOx3 - Pt extubated - Will wean off precedex drip Pulm: Acute hypercapnic resp failure leading to respiratory acidosis w/ chronic incomplete compensatory resp alkalosis: - Pt extubated, doing - Precedex drip will be titrated down - Likely 2/2 CHF exacerbation vs PNA vs mucous plug unlikely PE due to r/o by CTA - CXR shows improvement of L and R sided effusion - read by me - Echo showed mildly [place] [address] - [place] - Strict I/Os - Daily weight PNA vs CHF: - Procal elevated - CXR and echo resulted noted above - ID on board, recs appreciated: Merrem q8 and vanc day 4 of combination tx - Repeat blood, urine and sputum cultures Cardio: Shock: Septic vs cardiogenic: - Pt was able to be weaned off of levophed, cont dobutamine - Will try lasix for diuresis for suspected cardiogenic shock - Thoracentesis done 08/31: 1700ml out - Started on stress dose steroids - Solu-cortef 50q12 - Will cont to monitor - Goal is MAP > 65 Nephro: Pre-renal Azotemia: - BUN/Cr = 51/2.2 - UA, urine sodium, urine cl, urine osms, urine protein and serum osms ordered - Will cont to monitor - Will give lasix, now due to fluid overload and respiratory compromise but will limit other nephrotoxic agents - Nephro consulted, recs appreciated GI: - CLD for diet - Protonix MSK: B/l foot cellulitis - MRSA (+): - Pt on multipodus boots - ID on board: IV Vanc day 9 - Pt is refusing MRI for osteo r/o Stage 3 Sacral decub ulcer: - Pt refuses MRI - Santyl and local wound care - Cont Vanc per ID recs DVT PPx: Lovenox 40 Pt seen and discussed with Dr. Jeanne Zimmerman, PGY-1 <Lynn Angel - Last Filed: 09/03/18 18:15> CCU Objective - Vital Signs / Intake & Output Vital Signs (Last 4 hours): Vital Signs Temp Pulse Resp BP Pulse Ox 09/03/18 17:30 95.4 F L 74 14 141/63 95 09/03/18 17:20 95.4 F L 71 14 94 L 09/03/18 17:15 95.4 F L 70 15 131/57 L 93 L 09/03/18 17:10 95.4 F L 68 14 92 L 09/03/18 17:04 97 F L 97 H 18 93 L 09/03/18 17:00 95.4 F L 71 15 136/52 L 93 L 09/03/18 16:50 95.4 F L 70 16 96 09/03/18 16:45 95.4 F L 67 15 128/52 L 95 09/03/18 16:40 95.4 F L 88 17 94 L 09/03/18 16:30 95.4 F L 79 13 150/73 95 09/03/18 16:20 95.4 F L 68 14 94 L 09/03/18 16:15 95.5 F L 77 16 143/62 95 09/03/18 16:10 95.5 F L 89 17 95 09/03/18 16:08 95.5 F L 97 H 94 L 09/03/18 16:00 95.7 F L 91 H 17 133/66 89 L 09/03/18 15:50 95.7 F L 102 H 22 91 L 09/03/18 15:45 95.7 F L 104 H 21 132/67 94 L 09/03/18 15:40 95.7 F L 111 H 18 94 L 09/03/18 15:32 95.7 F L 108 H 92 L 09/03/18 15:31 95.7 F L 114 H 28 H 138/65 93 L 09/03/18 15:30 95.7 F L 112 H 25 H 93 L 09/03/18 15:29 95.7 F L 112 H 97 09/03/18 15:20 95.7 F L 101 H 19 96 09/03/18 15:15 95.7 F L 109 H 21 130/67 91 L 09/03/18 15:11 95.7 F L 92 L 09/03/18 15:10 95.7 F L 90 L 09/03/18 15:09 95.7 F L 87 L 09/03/18 15:08 95.7 F L 89 L 09/03/18 15:07 95.7 F L 91 L 09/03/18 15:00 95.7 F L 71 13 142/57 L 100 09/03/18 14:54 97 F L 09/03/18 14:50 95.7 F L 72 13 99 09/03/18 14:45 95.7 F L 72 13 143/56 L 99 09/03/18 14:40 95.9 F L 71 14 99 09/03/18 14:30 95.9 F L 71 13 143/59 L 98 09/03/18 14:20 96.1 F L 79 13 95 Intake and Output (Last 8hrs): Intake & Output 09/03/18 09/03/18 09/03/18 06:59 14:59 22:59 Intake Total 572 200 460 Output Total 350 900 Balance 222 200 -440 Intake: IV 572 200 360 Right Internal Jugular 222 360 Oral 0 100 Output: Urine 350 900 2-way Urethral 350 900 Stool 0 Emesis 0 - Medications Active Medications: Active Medications Generic Name Dose Route Start Last Admin Trade Name Freq PRN Reason Stop Dose Admin Acetaminophen 650 mg 08/24/18 00:04 09/03/18 13:54 Tylenol 325mg Tab PO 650 mg Q6 PRN Administration TEMP>=99.5F Acetaminophen 650 mg 08/24/18 00:04 Tylenol 650 Mg Supp RC Q6H PRN TEMP>=99.5F Acetylcysteine 4 ml 08/24/18 09:00 09/03/18 13:50 Acetylcysteine 20% IH 4 ml [id number] CASSY Administration Bisacodyl 10 mg 08/28/18 12:39 Dulcolax RC HS PRN Constipation Budesonide 0.5 mg 09/02/18 08:00 09/03/18 07:15 Pulmicort Respules IH 0.5 mg [id number] CASSY Administration Collagenase 0 gm 08/25/18 10:00 09/03/18 09:15 Santyl TOP 1 appl DAILY CASSY Administration Cyanocobalamin 1,000 mcg 08/26/18 15:00 09/03/18 09:10 Vitamin B12 1000 Mcg/Ml Inj IM 09/04/18 10:01 1,000 mcg DAILY CASSY Administration Enoxaparin Sodium 40 mg 08/31/18 10:00 09/03/18 09:09 Lovenox SC 40 mg DAILY CASSY Administration Protocol Ergocalciferol 1 cap 08/26/18 15:00 09/02/18 15:26 Drisdol 50,000 Intl Units Cap PO 1 cap Q7D CASSY Administration Folic Acid 1 mg 08/26/18 15:00 09/03/18 09:11 Folic Acid PO 1 mg DAILY CASSY Administration Furosemide 40 mg 09/02/18 10:00 09/03/18 10:20 Lasix IVP 40 mg DAILY CASSY Administration Hydrocortisone Sodium Succinate 50 mg 09/03/18 22:00 Solu-Cortef IVP Q12 CASSY Linezolid 600 mg in 300 mls @ 200 mls/hr 08/31/18 10:00 09/03/18 09:47 Zyvox 600mg/300ml D5w IVPB 09/07/18 10:01 200 mls/hr Q12 CASSY Administration Protocol Dexmedetomidine HCl 400 mcg in 100 mls @ 3.856 mls/hr 08/31/18 16:50 09/03/18 14:05 Precedex 400mcg/100ml IV 0.8 mcg/kg/hr .Q24H PRN 15.422 mls/hr Sedation Administration Protocol 0.2 MCG/KG/HR Dobutamine HCl/Dextrose 500 mg in 250 mls @ 5.783 mls/hr 09/01/18 11:23 09/03/18 02:41 Dobutamine/Dextrose 5% 500mg/250ml IV 2.5 mcg/kg/min .Q24H PRN 5.783 mls/hr TITRATE PER PROTOCOL Administration Protocol 2.5 MCG/KG/MIN Meropenem/Sodium Chloride 500 mg in 50 mls @ 100 mls/hr 09/03/18 10:00 09/03/18 10:21 Merrem Iv 500 Mg/Ns 50 Ml IVPB 09/08/18 10:01 Not Given Q12 CASSY Protocol Lactic Acid 0 ea 08/28/18 11:45 09/03/18 09:16 Lac-Hydrin 12% Cream (140 G) TOP 1 applic DAILY CASSY Administration Levalbuterol HCl 0.63 mg 09/03/18 19:30 Xopenex IH [id number] CASSY Metoprolol Tartrate 50 mg 08/30/18 09:00 08/31/18 10:03 Lopressor PO Not Given Q8H CASSY Morphine Sulfate 1 mg 09/03/18 15:46 Morphine IVP Q4H PRN Pain, severe (8-10) Mupirocin 0 gm 08/25/18 10:00 09/03/18 17:02 Bactroban Ointment TOP 1 appl BID CASSY Administration Nicotine 1 patch 08/24/18 10:00 09/03/18 09:13 Nicoderm Cq TD 1 patch DAILY CASSY Administration Ondansetron HCl 4 mg 08/24/18 00:04 Zofran Inj IVP Q4H PRN Nausea/Vomiting Pantoprazole Sodium 40 mg 09/02/18 10:00 09/03/18 09:11 Protonix Inj IVP 40 mg DAILY CASSY Administration Polyethylene Glycol 17 gm 08/31/18 10:00 09/03/18 09:14 Miralax PO 17 gm DAILY CASSY Administration Sodium Hypochlorite 0 ml 09/01/18 13:00 09/03/18 09:14 Dakins Solution 0.25% TOP 1 applic DAILY CASSY Administration - Patient Studies Lab Studies: Microbiology Studies 08/30/18 12:50 Blood Culture - Preliminary Blood-Venous NO GROWTH AFTER 4 DAYS 08/30/18 11:20 Blood Culture - Preliminary Blood-Venous NO GROWTH AFTER 4 DAYS 08/28/18 22:00 Blood Culture - Final Blood NO GROWTH AFTER 5 DAYS Gram Stain - Final TEST NOT PERFORMED 08/28/18 22:33 Blood Culture - Final Blood NO GROWTH AFTER 5 DAYS Gram Stain - Final TEST NOT PERFORMED Lab Studies 09/03/18 09/03/18 09/03/18 Range/Units 06:00 06:00 05:10 WBC 6.4 D (4.5-11.0) 10^3/uL RBC 3.66 (3.5-6.1) 10^6/uL Hgb 9.8 L (14.0-18.0) g/dL Hct 32.0 L (42.0-52.0) % MCV 87.4 (80.0-105.0) fl MCH 26.8 (25.0-35.0) pg MCHC 30.6 L (31.0-37.0) g/dl RDW 14.8 H (11.5-14.5) % Plt Count 143 (120.0-450.0) 10^3/uL MPV 11.3 H (7.0-11.0) fl Neut % (Auto) 80.7 H (50.0-68.0) % Lymph % (Auto) 9.5 L (22.0-35.0) % Emanuel % (Auto) 7.0 H (1.0-6.0) % Eos % (Auto) 2.6 (1.5-5.0) % Baso % (Auto) 0.2 (0.0-3.0) % Lymph # (Auto) 0.6 L (1.2-3.4) Emanuel # (Auto) 0.5 (0.1-0.6) Eos # (Auto) 0.2 (0.0-0.7) Baso # (Auto) 0.01 (0.0-2.0) K/mm3 Absolute Neuts (auto) 5.18 (1.4-6.5) pCO2 42 (35-45) mm/Hg pO2 114.0 H (80-100) mm/Hg HCO3 29.2 H (21-28) mmol/L ABG pH 7.45 (7.35-7.45) ABG Total CO2 30.5 H (22-28) mmol.L ABG O2 Saturation 98.9 H (95-98) % ABG O2 Content 13.7 L (15-23) ML/dl ABG Base Excess 4.7 H (-2.0-3.0) mmol/L ABG Hemoglobin 10.0 L (11.7-17.4) g/dL ABG Carboxyhemoglobin 1.3 (0.5-1.5) % POC ABG HHb (Measured) 1.1 (0-5) % ABG Methemoglobin 1.5 (0.0-3.0) % ABG O2 Capacity 13.9 L (16-24) mL/dl Hgb O2 Saturation 96.1 (95.0-98.0) % FiO2 60.0 % Sodium 133 (132-148) mmol/L Potassium 4.2 (3.6-5.0) mmol/L Chloride 97 L (98-107) mmol/L Carbon Dioxide 30 (21-33) mmol/L Anion Gap 11 (10-20) BUN 51 H (7-21) mg/dL Creatinine 2.2 H (0.8-1.5) mg/dl Est GFR ( Amer) 36 Est GFR (Non-Af Amer) 30 Random Glucose 128 H (70-110) mg/dL Calcium 7.9 L (8.4-10.5) mg/dL Magnesium 1.9 (1.7-2.2) mg/dL Total Bilirubin 0.5 (0.2-1.3) mg/dL Direct Bilirubin 0.4 (0.0-0.4) mg/dL AST 24 (17-59) U/L ALT 12 (7-56) U/L Alkaline Phosphatase 73 (38-126) U/L Total Creatine Kinase 23 L (35-230) U/L Troponin I < 0.01 ng/mL NT-Pro-B Natriuret Pep 9400 H (0-450) pg/mL Total Protein 5.8 (5.8-8.3) g/dL Albumin 2.2 L (3.0-4.8) g/dL Globulin 3.6 gm/dL Albumin/Globulin Ratio 0.6 L (1.1-1.8) Pleural Total Protein g/dL Pleural LDH U/L 08/31/18 08/31/18 Range/Units 12:45 12:45 WBC (4.5-11.0) 10^3/uL RBC (3.5-6.1) 10^6/uL Hgb (14.0-18.0) g/dL Hct (42.0-52.0) % MCV (80.0-105.0) fl MCH (25.0-35.0) pg MCHC (31.0-37.0) g/dl RDW (11.5-14.5) % Plt Count (120.0-450.0) 10^3/uL MPV (7.0-11.0) fl Neut % (Auto) (50.0-68.0) % Lymph % (Auto) (22.0-35.0) % Emanuel % (Auto) (1.0-6.0) % Eos % (Auto) (1.5-5.0) % Baso % (Auto) (0.0-3.0) % Lymph # (Auto) (1.2-3.4) Emanuel # (Auto) (0.1-0.6) Eos # (Auto) (0.0-0.7) Baso # (Auto) (0.0-2.0) K/mm3 Absolute Neuts (auto) (1.4-6.5) pCO2 (35-45) mm/Hg pO2 (80-100) mm/Hg HCO3 (21-28) mmol/L ABG pH (7.35-7.45) ABG Total CO2 (22-28) mmol.L ABG O2 Saturation (95-98) % ABG O2 Content (15-23) ML/dl ABG Base Excess (-2.0-3.0) mmol/L ABG Hemoglobin (11.7-17.4) g/dL ABG Carboxyhemoglobin (0.5-1.5) % POC ABG HHb (Measured) (0-5) % ABG Methemoglobin (0.0-3.0) % ABG O2 Capacity (16-24) mL/dl Hgb O2 Saturation (95.0-98.0) % FiO2 % Sodium (132-148) mmol/L Potassium (3.6-5.0) mmol/L Chloride (98-107) mmol/L Carbon Dioxide (21-33) mmol/L Anion Gap (10-20) BUN (7-21) mg/dL Creatinine (0.8-1.5) mg/dl Est GFR ( Amer) Est GFR (Non-Af Amer) Random Glucose (70-110) mg/dL Calcium (8.4-10.5) mg/dL Magnesium (1.7-2.2) mg/dL Total Bilirubin (0.2-1.3) mg/dL Direct Bilirubin (0.0-0.4) mg/dL AST (17-59) U/L ALT (7-56) U/L Alkaline Phosphatase (38-126) U/L Total Creatine Kinase (35-230) U/L Troponin I ng/mL NT-Pro-B Natriuret Pep (0-450) pg/mL Total Protein (5.8-8.3) g/dL Albumin (3.0-4.8) g/dL Globulin gm/dL Albumin/Globulin Ratio (1.1-1.8) Pleural Total Protein <3.0 g/dL Pleural LDH 47 U/L Laboratory Results - last 24 hr 08/31/18 08/31/18 09/03/18 12:45 12:45 05:10 WBC RBC Hgb Hct MCV MCH MCHC RDW Plt Count MPV Neut % (Auto) Lymph % (Auto) Emanuel % (Auto) Eos % (Auto) Baso % (Auto) Lymph # (Auto) Emanuel # (Auto) Eos # (Auto) Baso # (Auto) Absolute Neuts (auto) pCO2 42 pO2 114.0 H HCO3 29.2 H ABG pH 7.45 ABG Total CO2 30.5 H ABG O2 Saturation 98.9 H ABG O2 Content 13.7 L ABG Base Excess 4.7 H ABG Hemoglobin 10.0 L ABG Carboxyhemoglobin 1.3 POC ABG HHb (Measured) 1.1 ABG Methemoglobin 1.5 ABG O2 Capacity 13.9 L Hgb O2 Saturation 96.1 FiO2 60.0 Sodium Potassium Chloride Carbon Dioxide Anion Gap BUN Creatinine Est GFR ( Amer) Est GFR (Non-Af Amer) Random Glucose Calcium Magnesium Total Bilirubin Direct Bilirubin AST ALT Alkaline Phosphatase Total Creatine Kinase Troponin I NT-Pro-B Natriuret Pep Total Protein Albumin Globulin Albumin/Globulin Ratio Pleural Total Protein <3.0 Pleural LDH 47 09/03/18 09/03/18 06:00 06:00 WBC 6.4 D RBC 3.66 Hgb 9.8 L Hct 32.0 L MCV 87.4 MCH 26.8 MCHC 30.6 L RDW 14.8 H Plt Count 143 MPV 11.3 H Neut % (Auto) 80.7 H Lymph % (Auto) 9.5 L Emanuel % (Auto) 7.0 H Eos % (Auto) 2.6 Baso % (Auto) 0.2 Lymph # (Auto) 0.6 L Emanuel # (Auto) 0.5 Eos # (Auto) 0.2 Baso # (Auto) 0.01 Absolute Neuts (auto) 5.18 pCO2 pO2 HCO3 ABG pH ABG Total CO2 ABG O2 Saturation ABG O2 Content ABG Base Excess ABG Hemoglobin ABG Carboxyhemoglobin POC ABG HHb (Measured) ABG Methemoglobin ABG O2 Capacity Hgb O2 Saturation FiO2 Sodium 133 Potassium 4.2 Chloride 97 L Carbon Dioxide 30 Anion Gap 11 BUN 51 H Creatinine 2.2 H Est GFR ( Amer) 36 Est GFR (Non-Af Amer) 30 Random Glucose 128 H Calcium 7.9 L Magnesium 1.9 Total Bilirubin 0.5 Direct Bilirubin 0.4 AST 24 ALT 12 Alkaline Phosphatase 73 Total Creatine Kinase 23 L Troponin I < 0.01 NT-Pro-B Natriuret Pep 9400 H Total Protein 5.8 Albumin 2.2 L Globulin 3.6 Albumin/Globulin Ratio 0.6 L Pleural Total Protein Pleural LDH Radiology Impressions: Radiology Impressions Chest X-Ray 09/03/18 06:00 IMPRESSION: Interval mild improvement in the lungs since the previous exam. High position of the NG tube with the side hole is likely at the distal esophagus. Otherwise appropriate position of the support devices. EKG/Cardiology Studies: Cardiology / EKG Studies 09/03/18 07:00 ELECTROCARDIOGRAM DAILY Comment: Reason For Exam: CHF Critical Care Progress Note - Nutrition Nutrition: Nutrition Category Date Time Status Liquid Diet [DIET] Diets 09/03/18 Dinner Ordered Addendum Addendum: 09/03/18 18:15 ICU Attending Addendum Patient seen and examined. Case reviewed on round with housestaff. Agree with resident note above with the following additions/exceptions 68M with hx of pmhx of chronic back pain and vertebral disc disease who admitted initially for b/l foot pain and back pain was being tx for foot infection however became progressively hypoxic with worsening bl effusions s/p intubation and right thoracentesis of 1800 transudate He is in shock unclear however likely cardiogenic vs septic. The BL nature of his effusions is consistent with cardiogenic however his LV function is not significantly low. he has more right heart failure currently on dobuatime and will try and wean down extubated this AM f/u seo culture abx as per ID cont lasix CXR this afternoon CPAP is he gets sob cont nebs around the clock and steroids Rest of care as above in housestaff note Lynn Angel MD Pulmonary Critical Care Attending CC time 35 mins
[2018-09-03] MEDS: Linezolid 600 mg in D5W 300 ml 600 MG/300 ML BAG IVPB SCH ×2 (09:47→21:43)
--- NOTE | 2018-09-03 10:00 | PN ---
DATE: 09/03/2018(710am-800am) SUBJECTIVE: The patient remains on the ventilator. He is much more awake and alert this morning. PHYSICAL EXAMINATION: VITAL SIGNS: Temperature is 97, pulse is 88, respiratory rate 20/20, blood pressure 139/61. HEENT: Normocephalic, atraumatic. No JVD. CARDIOVASCULAR: Systolic ejection murmur at the lower left sternal border. Positive S3 gallop. LUNGS: Less crackles at the bases. Much less rhonchi. No wheezing. EXTREMITIES: Less edema. No cyanosis, no clubbing. Calves are nontender to palpation. GASTROINTESTINAL: Abdomen is soft, nontender and nondistended. Bowel sounds are positive. SKIN: Positive decubitus ulcers. Bilateral lower extremity ulcers. NEUROLOGIC: Exam limited at the present time. PERTINENT LABORATORY DATA: Chest x-ray was done this morning and reviewed. The chest x-ray is improved-- with decreased pulmonary vascular congestion. There are also decreased right lower lobe changes. Arterial blood gas was done on PRVC 20, tidal volume 400, FiO2 of 60%. Results are: PH 7.45, pCO2 of 42, pO2 of 114. IMPRESSION: 1. Respiratory failure. 2. Congestive heart failure. 3. Bilateral pleural effusions. 4. Status post left lung atelectasis. 5. Possible right lower lobe pneumonia. 6. Probable chronic obstructive pulmonary disease. 7. Renal insufficiency. PLAN: The patient remains in the ICU and on the ventilator. He is much less sedated this morning. I did discuss the case with the night nurse at length. The night nurse stated that the patient had a good night. I did review the chest x-ray as above. The chest x-ray shows definite improvement - with decreased pulmonary vascular congestive changes, as well as decreased right lower lobe changes. I have also reviewed the arterial blood gas. The arterial blood gas is also improved --with normalization of the pH and a decrease in the alveolar-arterial gradient. I will discuss possible weaning trials with the ICU team this morning. I would continue with the treatment for congestive heart failure as per Cardiology. The patient remains on dobutamine, as well as Lasix. On physical exam, there is much less bronchospasm noted. I will continue the current nebulizer treatments and inhaled steroids for now. Inputs by Infectious Disease and Cardiology are also noted. Clinical status of the patient is significantly improved - compared to earlier in the week. However, given the above, the future status/prognosis for this patient does remain guarded. I will discuss the above with the entire ICU team in the next few moments. I will also discuss the above with the attending physician later this morning. Mike Mahmood MD MTDSant[facility]
[2018-09-03] MEDS: Mupirocin 2% Ointment 15 GM TUBE TOP SCH ×2 (10:18→17:02)
[2018-09-03] MEDS: MEROPENEM 500 MG in NS 500 MG/50 ML BAG IVPB SCH ×2 (10:21→21:43)
--- NOTE | 2018-09-03 11:09 | RAD ---
Date of service: 09/03/2018 HISTORY: CHF COMPARISON: Comparison is made with 09/02/2018 FINDINGS: LUNGS: Interval mild improvement in the lungs since the previous exam. The ET tube is again seen at appropriate position. PLEURA: No significant pleural effusion identified, no pneumothorax apparent. CARDIOVASCULAR: Atherosclerotic calcification are noted. Normal cardiac size. Pulmonary vascular congestion is again noted. OSSEOUS STRUCTURES: No significant abnormalities. VISUALIZED UPPER ABDOMEN: Normal. OTHER FINDINGS: Right sided jugular central line is seen in place. The NG tube is seen at high position with sidehole is likely at the distal esophagus IMPRESSION: Interval mild improvement in the lungs since the previous exam. High position of the NG tube with the side hole is likely at the distal esophagus. Otherwise appropriate position of the support devices.
--- NOTE | 2018-09-03 12:59 | CARD ---
APPROVED REPORT Date of service: 09/03/2018 EKG Measurement Heart [id number] <Conclusion> Baseline artifact, probable sinus rhythm Right bundle branch block Cannot rule out Inferior infarct, age undetermined Abnormal ECG
--- NOTE | 2018-09-03 13:51 | CP.PCM.PN ---
<AlexaKishor - Last Filed: 09/03/18 13:50> Subjective - Date & Time of Evaluation Date of Evaluation: 09/03/18 Time of Evaluation: 13:50 - Subjective Subjective: Podiatry progress note Dr. Lloyd 68 y/o seen and evaluated for infected skin ulcers and b/l foot pain. Patient currently in the ICU due to acute CHF complicated by large b/l pleural effusion and suspected pneumonia with sepsis. Patient more alert and awake today Objective - Vital Signs/Intake and Output Vital Signs (last 24 hours): Temp Pulse Resp BP Pulse Ox 97.2 F L 99 H 20 137/62 97 09/03/18 12:00 09/03/18 12:00 09/03/18 12:00 09/03/18 10:20 09/03/18 12:00 Intake and Output: 09/03/18 09/03/18 06:59 18:59 Intake Total 672 100 Output Total 350 Balance 322 100 - Medications Medications: Current Medications Acetaminophen (Tylenol 325mg Tab) 650 mg PO Q6 PRN PRN Reason: TEMP>=99.5F Last Admin: 08/30/18 01:53 Dose: 650 mg Acetaminophen (Tylenol 650 Mg Supp) 650 mg RC Q6H PRN PRN Reason: TEMP>=99.5F Acetylcysteine (Acetylcysteine 20%) 4 ml IH [id number] [facility] Last Admin: 09/03/18 07:15 Dose: 4 ml Bisacodyl (Dulcolax) 10 mg RC HS PRN PRN Reason: Constipation Budesonide (Pulmicort Respules) 0.5 mg IH [id number] [facility] Last Admin: 09/03/18 07:15 Dose: 0.5 mg Collagenase (Santyl) 0 gm TOP DAILY [facility] Last Admin: 09/03/18 09:15 Dose: 1 appl Cyanocobalamin (Vitamin B12 1000 Mcg/Ml Inj) 1,000 mcg IM DAILY [facility] Stop: 09/04/18 10:01 Last Admin: 09/03/18 09:10 Dose: 1,000 mcg Enoxaparin Sodium (Lovenox) 40 mg SC DAILY [facility]; Protocol Last Admin: 09/03/18 09:09 Dose: 40 mg Ergocalciferol (Drisdol 50,000 Intl Units Cap) 1 cap PO Q7D [facility] Last Admin: 09/02/18 15:26 Dose: 1 cap Folic Acid (Folic Acid) 1 mg PO DAILY [facility] Last Admin: 09/03/18 09:11 Dose: 1 mg Furosemide (Lasix) 40 mg IVP DAILY [facility] Last Admin: 09/03/18 10:20 Dose: 40 mg Hydrocortisone Sodium Succinate (Solu-Cortef) 50 mg IVP Q12 [facility] Linezolid (Zyvox 600mg/300ml D5w) 600 mg in 300 mls @ 200 mls/hr IVPB Q12 [facility]; Protocol Stop: 09/07/18 10:01 Last Admin: 09/03/18 09:47 Dose: 200 mls/hr NOREPINEPHRINE BIT/0.9 % NACL (Levophed 4 Mg/ 250 Ml Ns Premixed) 4 mg in 250 mls @ 15 mls/hr IV .[id number] PRN; Protocol PRN Reason: TITRATE PER MD ORDER Last Titration: 09/02/18 03:00 Dose: 0 mcg/min, 0 mls/hr Dexmedetomidine HCl (Precedex 400mcg/100ml) 400 mcg in 100 mls @ 3.856 mls/hr IV .Q24H PRN; Protocol PRN Reason: Sedation Last Admin: 09/03/18 07:32 Dose: 0.8 mcg/kg/hr, 15.422 mls/hr Dobutamine HCl/Dextrose (Dobutamine/Dextrose 5% 500mg/250ml) 500 mg in 250 mls @ 5.783 mls/hr IV .Q24H PRN; Protocol PRN Reason: TITRATE PER PROTOCOL Last Admin: 09/03/18 02:41 Dose: 2.5 mcg/kg/min, 5.783 mls/hr Meropenem/Sodium Chloride (Merrem Iv 500 Mg/Ns 50 Ml) 500 mg in 50 mls @ 100 mls/hr IVPB Q12 [facility]; Protocol Stop: 09/08/18 10:01 Last Admin: 09/03/18 10:21 Dose: Not Given Lactic Acid (Lac-Hydrin 12% Cream (140 G)) 0 ea TOP DAILY [facility] Last Admin: 09/03/18 09:16 Dose: 1 applic Levalbuterol HCl (Xopenex) 0.63 mg IH [id number] [facility] Last Admin: 09/03/18 07:15 Dose: 0.63 mg Metoprolol Tartrate (Lopressor) 50 mg PO Q8H [facility] Last Admin: 08/31/18 10:03 Dose: Not Given Mupirocin (Bactroban Ointment) 0 gm TOP BID [facility] Last Admin: 09/03/18 10:18 Dose: 1 appl Nicotine (Nicoderm Cq) 1 patch TD DAILY [facility] Last Admin: 09/03/18 09:13 Dose: 1 patch Ondansetron HCl (Zofran Inj) 4 mg IVP Q4H PRN PRN Reason: Nausea/Vomiting Pantoprazole Sodium (Protonix Inj) 40 mg IVP DAILY [facility] Last Admin: 09/03/18 09:11 Dose: 40 mg Polyethylene Glycol (Miralax) 17 gm PO DAILY [facility] Last Admin: 09/03/18 09:14 Dose: 17 gm Sodium Hypochlorite (Dakins Solution 0.25%) 0 ml TOP DAILY [facility] Last Admin: 09/03/18 09:14 Dose: 1 applic - Labs Labs: 09/03/18 06:00 09/03/18 06:00 PT 15.1 SECONDS (9.4-12.5) H 08/23/18 22:20 INR 1.36 08/23/18 22:20 APTT 27.9 Seconds (26.9-38.3) 08/23/18 22:20 - Constitutional Appears: Well, Non-toxic, No Acute Distress - Head Exam Head Exam: ATRAUMATIC, NORMOCEPHALIC - Extremities Exam Additional comments: VASC: DP and PT non-palpable, TG warm to warm bilaterally, significant lymphedema noted bilaterally, non-pitting NEURO: grossly intact DERM: LEFT- 0.5 cm X 0.5 cm wound noted to submetatarsal 1 head, significantly improved, fibrotic base, no drainage, no tunneling, tracking or probe to bone, no malodor, multiple superficial wounds noted to the lateral aspect of the left ankle with 100% granular skin base, no drainage, no probe to bone, no tunneling or tracking, no malodor, chronic skin trophic changes secondary to long standing peripheral vascular disease, no signs of infection noted clinically RIGHT- superficial wound noted to the lateral aspect of the leg at the site of previous chronic skin trophic changes secondary to long standing peripheral vascular disease, wound base 100% granular, no drainage, mild malodor, no tunneling, tracking or probe to bone ORTHO: pain with range of motion, and on palpation to the feet and legs bilaterally - Neurological Exam Neurological Exam: Alert, Awake, Oriented x3 - Psychiatric Exam Psychiatric exam: Normal Affect, Normal Mood Assessment and Plan - Assessment and Plan (Free Text) Assessment: 68 y/o male patient seen and evaluated for bilateral lower extremity wounds Plan: Patient seen and evaluated Discussed in detail with Dr. Lloyd Afebrile, positive leukocytosis Bilateral foot x-ray ordered-no osteo on xray Patient refused CT and MRI , states it is too painful Patient to be treated with IV Abx as he has osteomyelitis Obtained Left foot wound cultures: MRSA, Morg morgnanii Wound cleansed with saline and dressed with bactroban, maxorb, adaptic, ABD DSD No podiatric intervention at this time, in our clinical judgement no evidence of osteo, however, cannot be confirmed as patient has refused both MRI/CT Podiatry will continue to follow patient while in house <Kvng Lloyd - Last Filed: 09/03/18 17:45> Objective - Vital Signs/Intake and Output Vital Signs (last 24 hours): Temp Pulse Resp BP Pulse Ox 95.4 F L 74 14 141/63 95 09/03/18 17:30 09/03/18 17:30 09/03/18 17:30 09/03/18 17:30 09/03/18 17:30 Intake and Output: 09/03/18 09/03/18 06:59 18:59 Intake Total 672 200 Output Total 350 Balance 322 200 - Medications Medications: Current Medications Acetaminophen (Tylenol 325mg Tab) 650 mg PO Q6 PRN PRN Reason: TEMP>=99.5F Last Admin: 09/03/18 13:54 Dose: 650 mg Acetaminophen (Tylenol 650 Mg Supp) 650 mg RC Q6H PRN PRN Reason: TEMP>=99.5F Acetylcysteine (Acetylcysteine 20%) 4 ml IH [id number] [facility] Last Admin: 09/03/18 13:50 Dose: 4 ml Bisacodyl (Dulcolax) 10 mg RC HS PRN PRN Reason: Constipation Budesonide (Pulmicort Respules) 0.5 mg IH [id number] [facility] Last Admin: 09/03/18 07:15 Dose: 0.5 mg Collagenase (Santyl) 0 gm TOP DAILY [facility] Last Admin: 09/03/18 09:15 Dose: 1 appl Cyanocobalamin (Vitamin B12 1000 Mcg/Ml Inj) 1,000 mcg IM DAILY [facility] Stop: 09/04/18 10:01 Last Admin: 09/03/18 09:10 Dose: 1,000 mcg Enoxaparin Sodium (Lovenox) 40 mg SC DAILY [facility]; Protocol Last Admin: 09/03/18 09:09 Dose: 40 mg Ergocalciferol (Drisdol 50,000 Intl Units Cap) 1 cap PO Q7D [facility] Last Admin: 09/02/18 15:26 Dose: 1 cap Folic Acid (Folic Acid) 1 mg PO DAILY [facility] Last Admin: 09/03/18 09:11 Dose: 1 mg Furosemide (Lasix) 40 mg IVP DAILY [facility] Last Admin: 09/03/18 10:20 Dose: 40 mg Hydrocortisone Sodium Succinate (Solu-Cortef) 50 mg IVP Q12 [facility] Linezolid (Zyvox 600mg/300ml D5w) 600 mg in 300 mls @ 200 mls/hr IVPB Q12 [facility]; Protocol Stop: 09/07/18 10:01 Last Admin: 09/03/18 09:47 Dose: 200 mls/hr Dexmedetomidine HCl (Precedex 400mcg/100ml) 400 mcg in 100 mls @ 3.856 mls/hr IV .Q24H PRN; Protocol PRN Reason: Sedation Last Admin: 09/03/18 14:05 Dose: 0.8 mcg/kg/hr, 15.422 mls/hr Dobutamine HCl/Dextrose (Dobutamine/Dextrose 5% 500mg/250ml) 500 mg in 250 mls @ 5.783 mls/hr IV .Q24H PRN; Protocol PRN Reason: TITRATE PER PROTOCOL Last Admin: 09/03/18 02:41 Dose: 2.5 mcg/kg/min, 5.783 mls/hr Meropenem/Sodium Chloride (Merrem Iv 500 Mg/Ns 50 Ml) 500 mg in 50 mls @ 100 mls/hr IVPB Q12 [facility]; Protocol Stop: 09/08/18 10:01 Last Admin: 09/03/18 10:21 Dose: Not Given Lactic Acid (Lac-Hydrin 12% Cream (140 G)) 0 ea TOP DAILY [facility] Last Admin: 09/03/18 09:16 Dose: 1 applic Levalbuterol HCl (Xopenex) 0.63 mg IH [id number] [facility] Metoprolol Tartrate (Lopressor) 50 mg PO Q8H [facility] Last Admin: 08/31/18 10:03 Dose: Not Given Morphine Sulfate (Morphine) 1 mg IVP Q4H PRN PRN Reason: Pain, severe (8-10) Mupirocin (Bactroban Ointment) 0 gm TOP BID [facility] Last Admin: 09/03/18 17:02 Dose: 1 appl Nicotine (Nicoderm Cq) 1 patch TD DAILY [facility] Last Admin: 09/03/18 09:13 Dose: 1 patch Ondansetron HCl (Zofran Inj) 4 mg IVP Q4H PRN PRN Reason: Nausea/Vomiting Pantoprazole Sodium (Protonix Inj) 40 mg IVP DAILY [facility] Last Admin: 09/03/18 09:11 Dose: 40 mg Polyethylene Glycol (Miralax) 17 gm PO DAILY [facility] Last Admin: 09/03/18 09:14 Dose: 17 gm Sodium Hypochlorite (Dakins Solution 0.25%) 0 ml TOP DAILY [facility] Last Admin: 09/03/18 09:14 Dose: 1 applic - Labs Labs: 09/03/18 06:00 09/03/18 06:00 PT 15.1 SECONDS (9.4-12.5) H 08/23/18 22:20 INR 1.36 08/23/18 22:20 APTT 27.9 Seconds (26.9-38.3) 08/23/18 22:20 Attending/Attestation - Attestation I have personally seen and examined this patient.: Yes I have fully participated in the care of the patient.: Yes I have reviewed all pertinent clinical information, including history, physical exam and plan: Yes
--- NOTE | 2018-09-03 13:53 | CP.PCM.PN ---
Subjective - Date & Time of Evaluation Date of Evaluation: 09/03/18 Time of Evaluation: 13:43 - Subjective Subjective: renal note still on presors extubated labs reviewed cxr reviewed vitals reviewed gen: nad sclera: anicteric op: clear neck: supple cv: +S1+s2 lungs: slightly coarse bs at bases abds: soft nt nd no organomegaly ext: trace edema neuro: follows commands no focaldeficit psych: flat skindressing on b/l le FRANCES/ATN/CHF/sepsis syndrome/acute resp failure/hyponatremia frances likely 2/2 to shock/atn. Cr stable, non oliguric. Continue supportive measures. hopefully will start to improve soon. lasix prn as necessary when stable please check renal US lytes otherwise stable na improved Objective - Vital Signs/Intake and Output Vital Signs (last 24 hours): Temp Pulse Resp BP Pulse Ox 97.2 F L 99 H 20 137/62 97 09/03/18 12:00 09/03/18 12:00 09/03/18 12:00 09/03/18 10:20 09/03/18 12:00 Intake and Output: 09/03/18 09/03/18 06:59 18:59 Intake Total 672 100 Output Total 350 Balance 322 100 - Medications Medications: Current Medications Acetaminophen (Tylenol 325mg Tab) 650 mg PO Q6 PRN PRN Reason: TEMP>=99.5F Last Admin: 08/30/18 01:53 Dose: 650 mg Acetaminophen (Tylenol 650 Mg Supp) 650 mg RC Q6H PRN PRN Reason: TEMP>=99.5F Acetylcysteine (Acetylcysteine 20%) 4 ml IH [id number] [facility] Last Admin: 09/03/18 07:15 Dose: 4 ml Bisacodyl (Dulcolax) 10 mg RC HS PRN PRN Reason: Constipation Budesonide (Pulmicort Respules) 0.5 mg IH [id number] [facility] Last Admin: 09/03/18 07:15 Dose: 0.5 mg Collagenase (Santyl) 0 gm TOP DAILY [facility] Last Admin: 09/03/18 09:15 Dose: 1 appl Cyanocobalamin (Vitamin B12 1000 Mcg/Ml Inj) 1,000 mcg IM DAILY [facility] Stop: 09/04/18 10:01 Last Admin: 09/03/18 09:10 Dose: 1,000 mcg Enoxaparin Sodium (Lovenox) 40 mg SC DAILY [facility]; Protocol Last Admin: 09/03/18 09:09 Dose: 40 mg Ergocalciferol (Drisdol 50,000 Intl Units Cap) 1 cap PO Q7D [facility] Last Admin: 09/02/18 15:26 Dose: 1 cap Folic Acid (Folic Acid) 1 mg PO DAILY [facility] Last Admin: 09/03/18 09:11 Dose: 1 mg Furosemide (Lasix) 40 mg IVP DAILY [facility] Last Admin: 09/03/18 10:20 Dose: 40 mg Hydrocortisone Sodium Succinate (Solu-Cortef) 50 mg IVP Q12 [facility] Linezolid (Zyvox 600mg/300ml D5w) 600 mg in 300 mls @ 200 mls/hr IVPB Q12 [facility]; Protocol Stop: 09/07/18 10:01 Last Admin: 09/03/18 09:47 Dose: 200 mls/hr NOREPINEPHRINE BIT/0.9 % NACL (Levophed 4 Mg/ 250 Ml Ns Premixed) 4 mg in 250 mls @ 15 mls/hr IV .[id number] PRN; Protocol PRN Reason: TITRATE PER MD ORDER Last Titration: 09/02/18 03:00 Dose: 0 mcg/min, 0 mls/hr Dexmedetomidine HCl (Precedex 400mcg/100ml) 400 mcg in 100 mls @ 3.856 mls/hr IV .Q24H PRN; Protocol PRN Reason: Sedation Last Admin: 09/03/18 07:32 Dose: 0.8 mcg/kg/hr, 15.422 mls/hr Dobutamine HCl/Dextrose (Dobutamine/Dextrose 5% 500mg/250ml) 500 mg in 250 mls @ 5.783 mls/hr IV .Q24H PRN; Protocol PRN Reason: TITRATE PER PROTOCOL Last Admin: 09/03/18 02:41 Dose: 2.5 mcg/kg/min, 5.783 mls/hr Meropenem/Sodium Chloride (Merrem Iv 500 Mg/Ns 50 Ml) 500 mg in 50 mls @ 100 mls/hr IVPB Q12 [facility]; Protocol Stop: 09/08/18 10:01 Last Admin: 09/03/18 10:21 Dose: Not Given Lactic Acid (Lac-Hydrin 12% Cream (140 G)) 0 ea TOP DAILY [facility] Last Admin: 09/03/18 09:16 Dose: 1 applic Levalbuterol HCl (Xopenex) 0.63 mg IH [id number] [facility] Last Admin: 09/03/18 07:15 Dose: 0.63 mg Metoprolol Tartrate (Lopressor) 50 mg PO Q8H [facility] Last Admin: 08/31/18 10:03 Dose: Not Given Mupirocin (Bactroban Ointment) 0 gm TOP BID [facility] Last Admin: 09/03/18 10:18 Dose: 1 appl Nicotine (Nicoderm Cq) 1 patch TD DAILY [facility] Last Admin: 09/03/18 09:13 Dose: 1 patch Ondansetron HCl (Zofran Inj) 4 mg IVP Q4H PRN PRN Reason: Nausea/Vomiting Pantoprazole Sodium (Protonix Inj) 40 mg IVP DAILY [facility] Last Admin: 09/03/18 09:11 Dose: 40 mg Polyethylene Glycol (Miralax) 17 gm PO DAILY [facility] Last Admin: 09/03/18 09:14 Dose: 17 gm Sodium Hypochlorite (Dakins Solution 0.25%) 0 ml TOP DAILY [facility] Last Admin: 09/03/18 09:14 Dose: 1 applic - Labs Labs: 09/03/18 06:00 09/03/18 06:00 PT 15.1 SECONDS (9.4-12.5) H 08/23/18 22:20 INR 1.36 08/23/18 22:20 APTT 27.9 Seconds (26.9-38.3) 08/23/18 22:20
--- NOTE | 2018-09-03 14:12 | PN ---
DATE: 09/03/2018 CARDIOLOGY FOLLOWUP SUBJECTIVE: The patient is extubated. He is sitting up in bed. PHYSICAL EXAMINATION: VITAL SIGNS: Blood pressure 137/62, the heart rate is in the 90s. NECK: Negative JVD. LUNGS: Decreased breath sounds bilaterally. HEART: Reveals S1, S2. EXTREMITIES: Without edema. LABORATORY DATA: Hemoglobin is 9.8. Chemistries, BUN and creatinine is 51 and 5.2. IMPRESSION: 1. Respiratory failure. 2. Large pericardial effusion. 3. Pneumonia. 4. Good left ventricular function. 5. Moderate to severe pulmonary hypertension. Given these findings, I do not feel the patient's pleural effusion is from CHF. His respiratory status has been helped by his thoracentesis. Jero Salamanca MD
--- NOTE | 2018-09-03 15:23 | CP.PCM.PN ---
Subjective - Date & Time of Evaluation Date of Evaluation: 09/03/18 Time of Evaluation: 08:30 - Subjective Subjective: Patient is still intubated but is more awake and alert, answering questions. No fevers, oxygen requirements are less. Objective - Vital Signs/Intake and Output Vital Signs (last 24 hours): Temp Pulse Resp BP Pulse Ox 96.3 F L 91 H 20 103/50 L 99 09/02/18 06:20 09/02/18 06:20 09/01/18 10:08 09/02/18 10:24 09/02/18 06:20 Intake and Output: 09/02/18 09/02/18 06:59 18:59 Intake Total 250 Output Total 400 Balance -150 - Medications Medications: Current Medications Acetaminophen (Tylenol 325mg Tab) 650 mg PO Q6 PRN PRN Reason: TEMP>=99.5F Last Admin: 08/30/18 01:53 Dose: 650 mg Acetaminophen (Tylenol 650 Mg Supp) 650 mg RC Q6H PRN PRN Reason: TEMP>=99.5F Acetylcysteine (Acetylcysteine 20%) 4 ml IH [id number] [facility] Last Admin: 09/02/18 07:31 Dose: 4 ml Bisacodyl (Dulcolax) 10 mg RC HS PRN PRN Reason: Constipation Budesonide (Pulmicort Respules) 0.5 mg IH [id number] [facility] Last Admin: 09/02/18 07:31 Dose: 0.5 mg Collagenase (Santyl) 0 gm TOP DAILY [facility] Last Admin: 09/02/18 10:28 Dose: 1 appl Cyanocobalamin (Vitamin B12 1000 Mcg/Ml Inj) 1,000 mcg IM DAILY [facility] Stop: 09/04/18 10:01 Last Admin: 09/02/18 10:25 Dose: 1,000 mcg Enoxaparin Sodium (Lovenox) 40 mg SC DAILY [facility]; Protocol Last Admin: 09/02/18 10:22 Dose: 40 mg Ergocalciferol (Drisdol 50,000 Intl Units Cap) 1 cap PO Q7D [facility] Last Admin: 08/26/18 15:49 Dose: 1 cap Folic Acid (Folic Acid) 1 mg PO DAILY [facility] Last Admin: 09/02/18 10:29 Dose: 1 mg Furosemide (Lasix) 40 mg IVP DAILY [facility] Last Admin: 09/02/18 10:24 Dose: 40 mg Hydrocortisone Sodium Succinate (Solu-Cortef) 50 mg IVP Q8 [facility] Meropenem (Merrem Iv 1 Gm Premix) 1 gm in 50 mls @ 100 mls/hr IVPB Q12 [facility]; Protocol Stop: 09/07/18 10:01 Last Admin: 09/02/18 10:22 Dose: 100 mls/hr Linezolid (Zyvox 600mg/300ml D5w) 600 mg in 300 mls @ 200 mls/hr IVPB Q12 [facility]; Protocol Stop: 09/07/18 10:01 Last Admin: 09/02/18 10:27 Dose: 200 mls/hr NOREPINEPHRINE BIT/0.9 % NACL (Levophed 4 Mg/ 250 Ml Ns Premixed) 4 mg in 250 mls @ 15 mls/hr IV .[id number] PRN; Protocol PRN Reason: TITRATE PER MD ORDER Last Titration: 09/02/18 03:00 Dose: 0 mcg/min, 0 mls/hr Dexmedetomidine HCl (Precedex 400mcg/100ml) 400 mcg in 100 mls @ 3.856 mls/hr IV .Q24H PRN; Protocol PRN Reason: Sedation Last Admin: 09/02/18 00:47 Dose: 0.8 mcg/kg/hr, 15.422 mls/hr Fentanyl Citrate (Fentanyl Citrate/Sodium Chloride 1 Mg/100 Ml) 1,000 mcg in 100 mls @ 5 mls/hr IV .Q20H PRN; Protocol PRN Reason: TITRATE PER MD ORDER Dobutamine HCl/Dextrose (Dobutamine/Dextrose 5% 500mg/250ml) 500 mg in 250 mls @ 5.783 mls/hr IV .Q24H PRN; Protocol PRN Reason: TITRATE PER PROTOCOL Last Admin: 09/01/18 11:45 Dose: 2.5 mcg/kg/min, 5.783 mls/hr Lactic Acid (Lac-Hydrin 12% Cream (140 G)) 0 ea TOP DAILY [facility] Last Admin: 09/02/18 10:29 Dose: 1 applic Levalbuterol HCl (Xopenex) 0.63 mg IH [id number] [facility] Last Admin: 09/02/18 07:31 Dose: 0.63 mg Lorazepam (Ativan) 1 mg IVP Q6H PRN; Protocol PRN Reason: Anxiety Last Admin: 09/02/18 03:35 Dose: 1 mg Metoprolol Tartrate (Lopressor) 50 mg PO Q8H [facility] Last Admin: 08/31/18 10:03 Dose: Not Given Mupirocin (Bactroban Ointment) 0 gm TOP BID [facility] Last Admin: 09/01/18 17:53 Dose: 1 appl Nicotine (Nicoderm Cq) 1 patch TD DAILY [facility] Last Admin: 09/02/18 10:23 Dose: 1 patch Ondansetron HCl (Zofran Inj) 4 mg IVP Q4H PRN PRN Reason: Nausea/Vomiting Pantoprazole Sodium (Protonix Inj) 40 mg IVP DAILY [facility] Last Admin: 09/02/18 10:25 Dose: 40 mg Polyethylene Glycol (Miralax) 17 gm PO DAILY [facility] Last Admin: 09/02/18 10:31 Dose: 17 gm Sodium Hypochlorite (Dakins Solution 0.25%) 0 ml TOP DAILY [facility] Last Admin: 09/01/18 14:00 Dose: 1 applic - Labs Labs: 09/02/18 06:00 09/02/18 06:00 PT 15.1 SECONDS (9.4-12.5) H 08/23/18 22:20 INR 1.36 08/23/18 22:20 APTT 27.9 Seconds (26.9-38.3) 08/23/18 22:20 - Constitutional Appears: Chronically Ill, Other (intubated) - Head Exam Head Exam: NORMAL INSPECTION - ENT Exam Additional comments: ET tube in place - Respiratory Exam Respiratory Exam: Decreased Breath Sounds - Cardiovascular Exam Cardiovascular Exam: +S1, +S2 - GI/Abdominal Exam GI & Abdominal Exam: Soft. absent: Tenderness Assessment and Plan - Assessment and Plan (Free Text) Plan: Assessment severe sepsis / S/P shock now with ventilator-dependent respiratory failure and acute renal failure due to probable right lower lobe hospital-acquired pneumonia, with bilateral pleural effusions S/P right sided thoracentesis Infected left lower extremity wounds, R/O osteomyelitis, grew MRSA chronic back pain vertebral disc disease venous stasis dermatitis Plan switched IV Vancomycin to Zyvox and will also continue Merrem (day 4 of combination) - repeat blood cx negative so far, follow up sputum cx, PCT is 0.61 - Zyvox will also cover the MRSA in the foot - target up to 7 days of an tibiotics awaiting MRI of the foot but patient is critically ill currently patient had thoracentesis on the right and fluid looks to be transudative - reviewed CXR today with decreased left sided pleural effusion discussed with Dr. Lloyd - yemi surgery for the foot for now will continue to monitor clinically overall prognosis is poor
[2018-09-04] MEDS: Acetylcysteine 20% Inhal Soln (4ml) IH SCH ×4 (00:30→20:08)
[2018-09-04] MEDS: Levalbuterol 0.63 MG/3 ML Inhal Soln UD IH SCH ×5 (04:25→20:09)
[2018-09-04 05:14] LABS: ARTERIAL BLOOD GAS HCO3 33.1 mmol/L (21-28); ARTERIAL BLOOD GAS O2 CAPACITY 12.5 mL/dl (16-24); ARTERIAL BLOOD GAS O2 CONTENT 12.3 ML/dl (15-23); ARTERIAL BLOOD GAS O2 SAT 98.6 % (95-98); ARTERIAL BLOOD GAS PCO2 51 mm/Hg (35-45); ARTERIAL BLOOD GAS PH 7.42 (7.35-7.45); ARTERIAL BLOOD GAS TCO2 34.7 mmol.L (22-28)
[2018-09-04 06:49] LABS: BASO # 0.02 K/mm3 (0.0-2.0); BASO % 0.4 % (0.0-3.0); EOS # 0.2 (0.0-0.7); EOS % 3.3 % (1.5-5.0); HEMOGLOBIN 9.3 g/dL (14.0-18.0); LYMPH # 0.5 (1.2-3.4); LYMPH % 9.4 % (22.0-35.0); MEAN CELL VOLUME 88.7 fl (80.0-105.0); MEAN CORPUSCULAR HEMOGLOBIN 27.6 pg (25.0-35.0); MEAN CORPUSCULAR HGB CONC 31.1 g/dl (31.0-37.0); MEAN PLATELET VOLUME 10.5 fl (7.0-11.0); MONO # 0.5 (0.1-0.6); MONO % 10.4 % (1.0-6.0); RBC 3.37 10^6/uL (3.5-6.1); RED CELL DISTRIBUTION WIDTH 14.7 % (11.5-14.5); WHITE BLOOD COUNT 4.8 10^3/uL (4.5-11.0)
[2018-09-04 07:02] LABS: ALB/GLOB RATIO 0.6 (1.1-1.8); BILIRUBIN,DIRECT 0.4 mg/dL (0.0-0.4); CALCIUM 7.8 mg/dL (8.4-10.5)
[2018-09-04] MEDS: Budesonide 0.5 mg/2 ml Inhal Susp UD IH SCH ×2 (07:48→20:08)
[2018-09-04] MEDS: Dexmedetomidine 400mcg/100mL 400 MCG/100 ML BOTTLE IV PRN ×3 (08:20→22:11)
--- NOTE | 2018-09-04 09:25 | CP.CCUPN ---
<Tamela Cooper - Last Filed: 09/04/18 15:15> CCU Subjective - Physician Review Subjective (Free Text): CRITICAL CARE PROGRESS NOTE FOR DR. JEANNE Cooper PGY1 Pt seen and examined at bedside in ICU. Pt was anxious overnight and had respiratory distress. He was given ativan, pain medication and breathing treatments with improvement in respiratory symptoms. Repeat ABG obtained this am. ROS unable to be obtained d/t sedation Currently on precedex 0.6 mcg/kg/hr 10 mls/hr IVF CCU Objective - Vital Signs / Intake & Output Intake and Output (Last 8hrs): Intake & Output 09/03/18 09/04/18 09/04/18 22:59 06:59 14:59 Intake Total 670 Output Total 900 Balance -230 Intake: IV 570 Right Internal Jugular 360 Oral 100 Output: Urine 900 2-way Urethral 900 - Physical Exam Head: Positive for: Atraumatic, Normocephalic Pupils: Positive for: PERRL Extroacular Muscles: Positive for: EOMI Conjunctiva: Positive for: Normal Mouth: Positive for: Moist Mucous Membranes Neck: Positive for: Normal Range of Motion Respiratory/Chest: Positive for: Decreased Breath Sounds. Negative for: Respiratory Distress, Accessory Muscle Use, Wheezes, Rales, Rhonchi Cardiovascular: Positive for: Regular Rate and Rhythm, Normal S1, S2. Negative for: Murmurs Abdomen: Positive for: Normal Bowel Sounds. Negative for: Tenderness, Distention, Peritoneal Signs Back: Positive for: Decubitus Ulcer (Sacral) Upper Extremity: Positive for: Normal Inspection. Negative for: Cyanosis, Edema Lower Extremity: Positive for: Normal Inspection, Normal ROM, Other (2 large skin decubiti on the posterior thighs bilaterally, both infected with surrounding erythema) Neurological: Positive for: GCS=15, CN II-XII Intact, Speech Normal Skin: Positive for: Warm, Dry, Normal Color. Negative for: Rashes Psychiatric: Positive for: Alert, Oriented x 3, Normal Insight, Normal Concentration - Medications Active Medications: Active Medications Generic Name Dose Route Start Last Admin Trade Name Freq PRN Reason Stop Dose Admin Acetaminophen 650 mg 08/24/18 00:04 09/03/18 13:54 Tylenol 325mg Tab PO 650 mg Q6 PRN Administration TEMP>=99.5F Acetaminophen 650 mg 08/24/18 00:04 Tylenol 650 Mg Supp RC Q6H PRN TEMP>=99.5F Acetylcysteine 4 ml 08/24/18 09:00 09/04/18 07:48 Acetylcysteine 20% IH 4 ml [id number] CASSY Administration Bisacodyl 10 mg 08/28/18 12:39 Dulcolax RC HS PRN Constipation Budesonide 0.5 mg 09/02/18 08:00 09/04/18 07:48 Pulmicort Respules IH 0.5 mg [id number] CASSY Administration Collagenase 0 gm 08/25/18 10:00 09/03/18 09:15 Santyl TOP 1 appl DAILY CASSY Administration Cyanocobalamin 1,000 mcg 08/26/18 15:00 09/03/18 09:10 Vitamin B12 1000 Mcg/Ml Inj IM 09/04/18 10:01 1,000 mcg DAILY CASSY Administration Enoxaparin Sodium 40 mg 08/31/18 10:00 09/03/18 09:09 Lovenox SC 40 mg DAILY CASSY Administration Protocol Ergocalciferol 1 cap 08/26/18 15:00 09/02/18 15:26 Drisdol 50,000 Intl Units Cap PO 1 cap Q7D CASSY Administration Folic Acid 1 mg 08/26/18 15:00 09/03/18 09:11 Folic Acid PO 1 mg DAILY CASSY Administration Furosemide 40 mg 09/02/18 10:00 09/03/18 10:20 Lasix IVP 40 mg DAILY CASSY Administration Hydrocortisone Sodium Succinate 50 mg 09/03/18 22:00 09/03/18 21:53 Solu-Cortef IVP 50 mg Q12 CASSY Administration Linezolid 600 mg in 300 mls @ 200 mls/hr 08/31/18 10:00 09/03/18 21:43 Zyvox 600mg/300ml D5w IVPB 09/07/18 10:01 200 mls/hr Q12 CASSY Administration Protocol Dexmedetomidine HCl 400 mcg in 100 mls @ 3.856 mls/hr 08/31/18 16:50 09/04/18 08:20 Precedex 400mcg/100ml IV 0.8 mcg/kg/hr .Q24H PRN 15.422 mls/hr Sedation Administration Protocol 0.2 MCG/KG/HR Dobutamine HCl/Dextrose 500 mg in 250 mls @ 5.783 mls/hr 09/01/18 11:23 09/03/18 18:00 Dobutamine/Dextrose 5% 500mg/250ml IV 0 mcg/kg/min .Q24H PRN 0 mls/hr TITRATE PER PROTOCOL Titration Protocol 2.5 MCG/KG/MIN Meropenem/Sodium Chloride 500 mg in 50 mls @ 100 mls/hr 09/03/18 10:00 09/03/18 21:43 Merrem Iv 500 Mg/Ns 50 Ml IVPB 09/08/18 10:01 100 mls/hr Q12 CASSY Administration Protocol Lactic Acid 0 ea 08/28/18 11:45 09/03/18 09:16 Lac-Hydrin 12% Cream (140 G) TOP 1 applic DAILY CASSY Administration Levalbuterol HCl 0.63 mg 09/03/18 19:30 09/04/18 07:48 Xopenex IH 0.63 mg [id number] CASSY Administration Metoprolol Tartrate 50 mg 08/30/18 09:00 08/31/18 10:03 Lopressor PO Not Given Q8H CASSY Morphine Sulfate 1 mg 09/03/18 15:46 Morphine IVP Q4H PRN Pain, severe (8-10) Mupirocin 0 gm 08/25/18 10:00 09/03/18 17:02 Bactroban Ointment TOP 1 appl BID CASSY Administration Nicotine 1 patch 08/24/18 10:00 09/03/18 09:13 Nicoderm Cq TD 1 patch DAILY CASSY Administration Nystatin 0 ea 09/03/18 18:00 Mycostatin Cream TOP TID CASSY Ondansetron HCl 4 mg 08/24/18 00:04 Zofran Inj IVP Q4H PRN Nausea/Vomiting Pantoprazole Sodium 40 mg 09/02/18 10:00 09/03/18 09:11 Protonix Inj IVP 40 mg DAILY CASSY Administration Polyethylene Glycol 17 gm 08/31/18 10:00 09/03/18 09:14 Miralax PO 17 gm DAILY CASSY Administration Sodium Hypochlorite 0 ml 09/01/18 13:00 09/03/18 09:14 Dakins Solution 0.25% TOP 1 applic DAILY CASSY Administration - Patient Studies Lab Studies: Microbiology Studies 08/30/18 12:50 Blood Culture - Preliminary Blood-Venous NO GROWTH AFTER 4 DAYS 08/30/18 11:20 Blood Culture - Preliminary Blood-Venous NO GROWTH AFTER 4 DAYS Lab Studies 09/04/18 09/04/18 09/04/18 Range/Units 06:30 06:30 05:00 WBC 4.8 D (4.5-11.0) 10^3/uL RBC 3.37 L (3.5-6.1) 10^6/uL Hgb 9.3 L (14.0-18.0) g/dL Hct 29.9 L (42.0-52.0) % MCV 88.7 (80.0-105.0) fl MCH 27.6 (25.0-35.0) pg MCHC 31.1 (31.0-37.0) g/dl RDW 14.7 H (11.5-14.5) % Plt Count 129 (120.0-450.0) 10^3/uL MPV 10.5 (7.0-11.0) fl Neut % (Auto) 76.5 H (50.0-68.0) % Lymph % (Auto) 9.4 L (22.0-35.0) % Forest % (Auto) 10.4 H (1.0-6.0) % Eos % (Auto) 3.3 (1.5-5.0) % Baso % (Auto) 0.4 (0.0-3.0) % Lymph # (Auto) 0.5 L (1.2-3.4) Forest # (Auto) 0.5 (0.1-0.6) Eos # (Auto) 0.2 (0.0-0.7) Baso # (Auto) 0.02 (0.0-2.0) K/mm3 Absolute Neuts (auto) 3.66 (1.4-6.5) pCO2 51 H (35-45) mm/Hg pO2 90.0 (80-100) mm/Hg HCO3 33.1 H (21-28) mmol/L ABG pH 7.42 (7.35-7.45) ABG Total CO2 34.7 H (22-28) mmol.L ABG O2 Saturation 98.6 H (95-98) % ABG O2 Content 12.3 L (15-23) ML/dl ABG Base Excess 7.6 H (-2.0-3.0) mmol/L ABG Hemoglobin 9.0 L (11.7-17.4) g/dL ABG Carboxyhemoglobin 1.7 H (0.5-1.5) % POC ABG HHb (Measured) 1.4 (0-5) % ABG Methemoglobin 0.8 (0.0-3.0) % ABG O2 Capacity 12.5 L (16-24) mL/dl Hgb O2 Saturation 96.2 (95.0-98.0) % FiO2 100.0 % Sodium 135 (132-148) mmol/L Potassium 3.7 (3.6-5.0) mmol/L Chloride 99 (98-107) mmol/L Carbon Dioxide 32 (21-33) mmol/L Anion Gap 7 L (10-20) BUN 58 H (7-21) mg/dL Creatinine 1.9 H (0.8-1.5) mg/dl Est GFR ( Amer) 43 Est GFR (Non-Af Amer) 35 Random Glucose 138 H (70-110) mg/dL Calcium 7.8 L (8.4-10.5) mg/dL Magnesium 2.0 (1.7-2.2) mg/dL Total Bilirubin 0.6 (0.2-1.3) mg/dL Direct Bilirubin 0.4 (0.0-0.4) mg/dL AST 27 (17-59) U/L ALT 19 (7-56) U/L Alkaline Phosphatase 65 (38-126) U/L NT-Pro-B Natriuret Pep 57011 H (0-450) pg/mL Total Protein 5.4 L (5.8-8.3) g/dL Albumin 2.0 L (3.0-4.8) g/dL Globulin 3.4 gm/dL Albumin/Globulin Ratio 0.6 L (1.1-1.8) Fluid Albumin g/dL 08/31/18 Range/Units 12:45 WBC (4.5-11.0) 10^3/uL RBC (3.5-6.1) 10^6/uL Hgb (14.0-18.0) g/dL Hct (42.0-52.0) % MCV (80.0-105.0) fl MCH (25.0-35.0) pg MCHC (31.0-37.0) g/dl RDW (11.5-14.5) % Plt Count (120.0-450.0) 10^3/uL MPV (7.0-11.0) fl Neut % (Auto) (50.0-68.0) % Lymph % (Auto) (22.0-35.0) % Forest % (Auto) (1.0-6.0) % Eos % (Auto) (1.5-5.0) % Baso % (Auto) (0.0-3.0) % Lymph # (Auto) (1.2-3.4) Forest # (Auto) (0.1-0.6) Eos # (Auto) (0.0-0.7) Baso # (Auto) (0.0-2.0) K/mm3 Absolute Neuts (auto) (1.4-6.5) pCO2 (35-45) mm/Hg pO2 (80-100) mm/Hg HCO3 (21-28) mmol/L ABG pH (7.35-7.45) ABG Total CO2 (22-28) mmol.L ABG O2 Saturation (95-98) % ABG O2 Content (15-23) ML/dl ABG Base Excess (-2.0-3.0) mmol/L ABG Hemoglobin (11.7-17.4) g/dL ABG Carboxyhemoglobin (0.5-1.5) % POC ABG HHb (Measured) (0-5) % ABG Methemoglobin (0.0-3.0) % ABG O2 Capacity (16-24) mL/dl Hgb O2 Saturation (95.0-98.0) % FiO2 % Sodium (132-148) mmol/L Potassium (3.6-5.0) mmol/L Chloride (98-107) mmol/L Carbon Dioxide (21-33) mmol/L Anion Gap (10-20) BUN (7-21) mg/dL Creatinine (0.8-1.5) mg/dl Est GFR ( Amer) Est GFR (Non-Af Amer) Random Glucose (70-110) mg/dL Calcium (8.4-10.5) mg/dL Magnesium (1.7-2.2) mg/dL Total Bilirubin (0.2-1.3) mg/dL Direct Bilirubin (0.0-0.4) mg/dL AST (17-59) U/L ALT (7-56) U/L Alkaline Phosphatase (38-126) U/L NT-Pro-B Natriuret Pep (0-450) pg/mL Total Protein (5.8-8.3) g/dL Albumin (3.0-4.8) g/dL Globulin gm/dL Albumin/Globulin Ratio (1.1-1.8) Fluid Albumin 0.6 g/dL Laboratory Results - last 24 hr 08/31/18 09/04/18 09/04/18 12:45 05:00 06:30 WBC RBC Hgb Hct MCV MCH MCHC RDW Plt Count MPV Neut % (Auto) Lymph % (Auto) Forest % (Auto) Eos % (Auto) Baso % (Auto) Lymph # (Auto) Forest # (Auto) Eos # (Auto) Baso # (Auto) Absolute Neuts (auto) pCO2 51 H pO2 90.0 HCO3 33.1 H ABG pH 7.42 ABG Total CO2 34.7 H ABG O2 Saturation 98.6 H ABG O2 Content 12.3 L ABG Base Excess 7.6 H ABG Hemoglobin 9.0 L ABG Carboxyhemoglobin 1.7 H POC ABG HHb (Measured) 1.4 ABG Methemoglobin 0.8 ABG O2 Capacity 12.5 L Hgb O2 Saturation 96.2 FiO2 100.0 Sodium 135 Potassium 3.7 Chloride 99 Carbon Dioxide 32 Anion Gap 7 L BUN 58 H Creatinine 1.9 H Est GFR ( Amer) 43 Est GFR (Non-Af Amer) 35 Random Glucose 138 H Calcium 7.8 L Magnesium 2.0 Total Bilirubin 0.6 Direct Bilirubin 0.4 AST 27 ALT 19 Alkaline Phosphatase 65 NT-Pro-B Natriuret Pep 49423 H Total Protein 5.4 L Albumin 2.0 L Globulin 3.4 Albumin/Globulin Ratio 0.6 L Fluid Albumin 0.6 09/04/18 06:30 WBC 4.8 D RBC 3.37 L Hgb 9.3 L Hct 29.9 L MCV 88.7 MCH 27.6 MCHC 31.1 RDW 14.7 H Plt Count 129 MPV 10.5 Neut % (Auto) 76.5 H Lymph % (Auto) 9.4 L Forest % (Auto) 10.4 H Eos % (Auto) 3.3 Baso % (Auto) 0.4 Lymph # (Auto) 0.5 L Forest # (Auto) 0.5 Eos # (Auto) 0.2 Baso # (Auto) 0.02 Absolute Neuts (auto) 3.66 pCO2 pO2 HCO3 ABG pH ABG Total CO2 ABG O2 Saturation ABG O2 Content ABG Base Excess ABG Hemoglobin ABG Carboxyhemoglobin POC ABG HHb (Measured) ABG Methemoglobin ABG O2 Capacity Hgb O2 Saturation FiO2 Sodium Potassium Chloride Carbon Dioxide Anion Gap BUN Creatinine Est GFR ( Amer) Est GFR (Non-Af Amer) Random Glucose Calcium Magnesium Total Bilirubin Direct Bilirubin AST ALT Alkaline Phosphatase NT-Pro-B Natriuret Pep Total Protein Albumin Globulin Albumin/Globulin Ratio Fluid Albumin Radiology Impressions: Radiology Impressions Chest X-Ray 09/03/18 06:00 IMPRESSION: Interval mild improvement in the lungs since the previous exam. High position of the NG tube with the side hole is likely at the distal esophagus. Otherwise appropriate position of the support devices. Review of Systems - Review of Systems Review of Systems: per HPI Critical Care Progress Note - Nutrition Nutrition: Nutrition Category Date Time Status Liquid Diet [DIET] Diets 09/03/18 Dinner Ordered Assessment/Plan - Assessment and Plan (Free Text) Assessment: Pt is a 68 yo M with pmhx of chronic back pain and vertebral disc disease who presented to the [facility] [place] for complaints of b/l foot pain and back pain. ICU is consulted for management of pts acute hypercapnic respiratory failure and AMS. Pt had R thoracentesis done 08/31, pt was also intubated due to continued resp acidosis even on 100% FiO2 on Bipap. Pt is now weaned off of levophed, and dobutamine, still on precedex. Pt is now extubated and saturating well. Plan: Neuro: - AOx3 - Pt extubated - Will wean off precedex drip Pulm: Acute hypercapnic resp failure leading to respiratory acidosis w/ chronic incomplete compensatory resp alkalosis: - Pt extubated - Precedex drip will be titrated down - Likely 2/2 CHF exacerbation vs PNA vs mucous plug unlikely PE due to r/o by CTA - CXR shows improvement of L and R sided effusion - Echo showed mildly imparied LV systolic dysfunction - BNP elevated - Abrams - Strict I/Os. Minimize positive fluid balance - Daily weight PNA vs CHF: - Procal elevated - CXR and echo resulted noted above - ID on board, recs appreciated: Merrem q8 and vanc day 5 of combination tx - Repeat blood, urine and sputum cultures Cardio: Shock: Septic vs cardiogenic: - Pt weaned off of levophed and dobutamine - Continue lasix for diuresis for suspected cardiogenic shock - s/p Thoracentesis 08/31: 1700ml out - decrease stress dose steroids to 50mg daily instead of Q12 - Goal is MAP > 65 Nephro: Pre-renal Azotemia: - BUN/Cr = 58/1.9 - UA, urine sodium, urine cl, urine osms, urine protein and serum osms ordered - Will cont to monitor - Will give lasix, now due to fluid overload and respiratory compromise but will limit other nephrotoxic agents - Nephro consulted, recs appreciated - Monitor I/Os, try to maintain negative fluid balance. GI: - CLD for diet - Protonix MSK: B/l foot cellulitis - MRSA (+): - continue multipodus boots - cultures growing MRSA - Continue IV Vanc. ID following - Pt is refusing MRI to r/o osteomyelitis ID: Stage 3 Sacral decub ulcer: - Pt refusing MRI - Santyl and local wound care - Cont Vancomycin per ID recs - Will discuss with ID to transition to oral abx in order to minimize positive fluid balance DVT PPx: Lovenox/Protonix Case seen, examined and discussed with attending physician, Dr. Jeanne Cooper PGY1 <Lynn Angel - Last Filed: 09/04/18 16:37> CCU Objective - Vital Signs / Intake & Output Vital Signs (Last 4 hours): Vital Signs Pulse Resp BP Pulse Ox 09/04/18 15:30 60 13 115/47 L 100 09/04/18 15:20 57 L 17 100 09/04/18 15:15 62 14 110/49 L 100 09/04/18 15:10 59 L 19 100 09/04/18 15:00 59 L 16 106/51 L 100 09/04/18 14:50 57 L 13 100 09/04/18 14:45 58 L 15 107/48 L 100 09/04/18 14:40 60 15 100 09/04/18 14:30 61 15 106/49 L 100 09/04/18 14:20 62 14 100 09/04/18 14:15 64 16 109/47 L 100 09/04/18 14:10 64 16 100 09/04/18 14:00 66 16 112/49 L 100 09/04/18 13:50 72 17 100 09/04/18 13:45 75 15 118/52 L 100 09/04/18 13:40 80 20 100 09/04/18 13:30 82 16 132/61 100 09/04/18 13:20 86 16 98 09/04/18 13:15 89 17 134/67 97 09/04/18 13:10 126 H 22 93 L 09/04/18 13:03 125/60 09/04/18 13:00 137 H 24 125/60 87 L 09/04/18 12:50 139 H 27 H 91 L 09/04/18 12:40 129 H 32 H 84 L - Medications Active Medications: Active Medications Generic Name Dose Route Start Last Admin Trade Name Freq PRN Reason Stop Dose Admin Acetaminophen 650 mg 08/24/18 00:04 09/03/18 13:54 Tylenol 325mg Tab PO 650 mg Q6 PRN Administration TEMP>=99.5F Acetaminophen 650 mg 08/24/18 00:04 Tylenol 650 Mg Supp RC Q6H PRN TEMP>=99.5F Acetylcysteine 4 ml 08/24/18 09:00 09/04/18 14:30 Acetylcysteine 20% IH 4 ml [id number] CASSY Administration Bisacodyl 10 mg 08/28/18 12:39 Dulcolax RC HS PRN Constipation Budesonide 0.5 mg 09/02/18 08:00 09/04/18 07:48 Pulmicort Respules IH 0.5 mg [id number] CASSY Administration Collagenase 0 gm 08/25/18 10:00 09/03/18 09:15 Santyl TOP 1 appl DAILY CASSY Administration Enoxaparin Sodium 40 mg 08/31/18 10:00 09/04/18 09:42 Lovenox SC 40 mg DAILY CASSY Administration Protocol Ergocalciferol 1 cap 08/26/18 15:00 09/02/18 15:26 Drisdol 50,000 Intl Units Cap PO 1 cap Q7D CASSY Administration Folic Acid 1 mg 08/26/18 15:00 09/04/18 09:56 Folic Acid PO 1 mg DAILY CASSY Administration Furosemide 40 mg 09/02/18 10:00 09/04/18 09:43 Lasix IVP 40 mg DAILY CASSY Administration Hydrocortisone Sodium Succinate 50 mg 09/05/18 10:00 Solu-Cortef IVP DAILY CASSY Linezolid 600 mg in 300 mls @ 200 mls/hr 08/31/18 10:00 09/04/18 09:42 Zyvox 600mg/300ml D5w IVPB 09/07/18 10:01 200 mls/hr Q12 CASSY Administration Protocol Dexmedetomidine HCl 400 mcg in 100 mls @ 3.856 mls/hr 08/31/18 16:50 09/04/18 08:20 Precedex 400mcg/100ml IV 0.8 mcg/kg/hr .Q24H PRN 15.422 mls/hr Sedation Administration Protocol 0.2 MCG/KG/HR Dobutamine HCl/Dextrose 500 mg in 250 mls @ 5.783 mls/hr 09/01/18 11:23 09/03/18 18:00 Dobutamine/Dextrose 5% 500mg/250ml IV 0 mcg/kg/min .Q24H PRN 0 mls/hr TITRATE PER PROTOCOL Titration Protocol 2.5 MCG/KG/MIN Meropenem/Sodium Chloride 500 mg in 50 mls @ 100 mls/hr 09/03/18 10:00 09/04/18 09:38 Merrem Iv 500 Mg/Ns 50 Ml IVPB 09/08/18 10:01 100 mls/hr Q12 CASSY Administration Protocol Lactic Acid 0 ea 08/28/18 11:45 09/04/18 09:52 Lac-Hydrin 12% Cream (140 G) TOP 1 applic DAILY CASSY Administration Levalbuterol HCl 0.63 mg 09/03/18 19:30 09/04/18 14:30 Xopenex IH 0.63 mg [id number] CASSY Administration Metoprolol Tartrate 50 mg 08/30/18 09:00 08/31/18 10:03 Lopressor PO Not Given Q8H CASSY Morphine Sulfate 1 mg 09/03/18 15:46 Morphine IVP Q4H PRN Pain, severe (8-10) Mupirocin 0 gm 08/25/18 10:00 09/04/18 09:46 Bactroban Ointment TOP 1 appl BID CASSY Administration Nicotine 1 patch 08/24/18 10:00 09/04/18 09:44 Nicoderm Cq TD 1 patch DAILY CASSY Administration Nystatin 0 ea 09/03/18 18:00 Mycostatin Cream TOP TID CASSY Ondansetron HCl 4 mg 08/24/18 00:04 Zofran Inj IVP Q4H PRN Nausea/Vomiting Pantoprazole Sodium 40 mg 09/02/18 10:00 09/04/18 09:42 Protonix Inj IVP 40 mg DAILY CASSY Administration Polyethylene Glycol 17 gm 08/31/18 10:00 09/04/18 09:45 Miralax PO Not Given DAILY CASSY Sodium Hypochlorite 0 ml 09/01/18 13:00 09/04/18 09:53 Dakins Solution 0.25% TOP 1 applic DAILY CASSY Administration - Patient Studies Lab Studies: Microbiology Studies 08/30/18 12:50 Blood Culture - Final Blood-Venous NO GROWTH AFTER 5 DAYS Gram Stain - Final TEST NOT PERFORMED 08/30/18 11:20 Blood Culture - Final Blood-Venous NO GROWTH AFTER 5 DAYS Gram Stain - Final TEST NOT PERFORMED Lab Studies 09/04/18 09/04/18 09/04/18 Range/Units 06:30 06:30 05:00 WBC 4.8 D (4.5-11.0) 10^3/uL RBC 3.37 L (3.5-6.1) 10^6/uL Hgb 9.3 L (14.0-18.0) g/dL Hct 29.9 L (42.0-52.0) % MCV 88.7 (80.0-105.0) fl MCH 27.6 (25.0-35.0) pg MCHC 31.1 (31.0-37.0) g/dl RDW 14.7 H (11.5-14.5) % Plt Count 129 (120.0-450.0) 10^3/uL MPV 10.5 (7.0-11.0) fl Neut % (Auto) 76.5 H (50.0-68.0) % Lymph % (Auto) 9.4 L (22.0-35.0) % Forest % (Auto) 10.4 H (1.0-6.0) % Eos % (Auto) 3.3 (1.5-5.0) % Baso % (Auto) 0.4 (0.0-3.0) % Lymph # (Auto) 0.5 L (1.2-3.4) Forest # (Auto) 0.5 (0.1-0.6) Eos # (Auto) 0.2 (0.0-0.7) Baso # (Auto) 0.02 (0.0-2.0) K/mm3 Absolute Neuts (auto) 3.66 (1.4-6.5) pCO2 51 H (35-45) mm/Hg pO2 90.0 (80-100) mm/Hg HCO3 33.1 H (21-28) mmol/L ABG pH 7.42 (7.35-7.45) ABG Total CO2 34.7 H (22-28) mmol.L ABG O2 Saturation 98.6 H (95-98) % ABG O2 Content 12.3 L (15-23) ML/dl ABG Base Excess 7.6 H (-2.0-3.0) mmol/L ABG Hemoglobin 9.0 L (11.7-17.4) g/dL ABG Carboxyhemoglobin 1.7 H (0.5-1.5) % POC ABG HHb (Measured) 1.4 (0-5) % ABG Methemoglobin 0.8 (0.0-3.0) % ABG O2 Capacity 12.5 L (16-24) mL/dl Hgb O2 Saturation 96.2 (95.0-98.0) % FiO2 100.0 % Sodium 135 (132-148) mmol/L Potassium 3.7 (3.6-5.0) mmol/L Chloride 99 (98-107) mmol/L Carbon Dioxide 32 (21-33) mmol/L Anion Gap 7 L (10-20) BUN 58 H (7-21) mg/dL Creatinine 1.9 H (0.8-1.5) mg/dl Est GFR ( Amer) 43 Est GFR (Non-Af Amer) 35 Random Glucose 138 H (70-110) mg/dL Calcium 7.8 L (8.4-10.5) mg/dL Magnesium 2.0 (1.7-2.2) mg/dL Total Bilirubin 0.6 (0.2-1.3) mg/dL Direct Bilirubin 0.4 (0.0-0.4) mg/dL AST 27 (17-59) U/L ALT 19 (7-56) U/L Alkaline Phosphatase 65 (38-126) U/L NT-Pro-B Natriuret Pep 74149 H (0-450) pg/mL Total Protein 5.4 L (5.8-8.3) g/dL Albumin 2.0 L (3.0-4.8) g/dL Globulin 3.4 gm/dL Albumin/Globulin Ratio 0.6 L (1.1-1.8) Fluid Albumin g/dL 08/31/18 Range/Units 12:45 WBC (4.5-11.0) 10^3/uL RBC (3.5-6.1) 10^6/uL Hgb (14.0-18.0) g/dL Hct (42.0-52.0) % MCV (80.0-105.0) fl MCH (25.0-35.0) pg MCHC (31.0-37.0) g/dl RDW (11.5-14.5) % Plt Count (120.0-450.0) 10^3/uL MPV (7.0-11.0) fl Neut % (Auto) (50.0-68.0) % Lymph % (Auto) (22.0-35.0) % Forest % (Auto) (1.0-6.0) % Eos % (Auto) (1.5-5.0) % Baso % (Auto) (0.0-3.0) % Lymph # (Auto) (1.2-3.4) Forest # (Auto) (0.1-0.6) Eos # (Auto) (0.0-0.7) Baso # (Auto) (0.0-2.0) K/mm3 Absolute Neuts (auto) (1.4-6.5) pCO2 (35-45) mm/Hg pO2 (80-100) mm/Hg HCO3 (21-28) mmol/L ABG pH (7.35-7.45) ABG Total CO2 (22-28) mmol.L ABG O2 Saturation (95-98) % ABG O2 Content (15-23) ML/dl ABG Base Excess (-2.0-3.0) mmol/L ABG Hemoglobin (11.7-17.4) g/dL ABG Carboxyhemoglobin (0.5-1.5) % POC ABG HHb (Measured) (0-5) % ABG Methemoglobin (0.0-3.0) % ABG O2 Capacity (16-24) mL/dl Hgb O2 Saturation (95.0-98.0) % FiO2 % Sodium (132-148) mmol/L Potassium (3.6-5.0) mmol/L Chloride (98-107) mmol/L Carbon Dioxide (21-33) mmol/L Anion Gap (10-20) BUN (7-21) mg/dL Creatinine (0.8-1.5) mg/dl Est GFR ( Amer) Est GFR (Non-Af Amer) Random Glucose (70-110) mg/dL Calcium (8.4-10.5) mg/dL Magnesium (1.7-2.2) mg/dL Total Bilirubin (0.2-1.3) mg/dL Direct Bilirubin (0.0-0.4) mg/dL AST (17-59) U/L ALT (7-56) U/L Alkaline Phosphatase (38-126) U/L NT-Pro-B Natriuret Pep (0-450) pg/mL Total Protein (5.8-8.3) g/dL Albumin (3.0-4.8) g/dL Globulin gm/dL Albumin/Globulin Ratio (1.1-1.8) Fluid Albumin 0.6 g/dL Laboratory Results - last 24 hr 08/31/18 09/04/18 09/04/18 12:45 05:00 06:30 WBC RBC Hgb Hct MCV MCH MCHC RDW Plt Count MPV Neut % (Auto) Lymph % (Auto) Forest % (Auto) Eos % (Auto) Baso % (Auto) Lymph # (Auto) [place] # (Auto) Eos # (Auto) Baso # (Auto) Absolute Neuts (auto) pCO2 51 H pO2 90.0 HCO3 33.1 H ABG pH 7.42 ABG Total CO2 34.7 H ABG O2 Saturation 98.6 H ABG O2 Content 12.3 L ABG Base Excess 7.6 H ABG Hemoglobin 9.0 L ABG Carboxyhemoglobin 1.7 H POC ABG HHb (Measured) 1.4 ABG Methemoglobin 0.8 ABG O2 Capacity 12.5 L Hgb O2 Saturation 96.2 FiO2 100.0 Sodium 135 Potassium 3.7 Chloride 99 Carbon Dioxide 32 Anion Gap 7 L BUN 58 H Creatinine 1.9 H Est GFR ( Amer) 43 Est GFR (Non-Af Amer) 35 Random Glucose 138 H Calcium 7.8 L Magnesium 2.0 Total Bilirubin 0.6 Direct Bilirubin 0.4 AST 27 ALT 19 Alkaline Phosphatase 65 NT-Pro-B Natriuret Pep 68449 H Total Protein 5.4 L Albumin 2.0 L Globulin 3.4 Albumin/Globulin Ratio 0.6 L Fluid Albumin 0.6 09/04/18 06:30 WBC 4.8 D RBC 3.37 L Hgb 9.3 L Hct 29.9 L MCV 88.7 MCH 27.6 MCHC 31.1 RDW 14.7 H Plt Count 129 MPV 10.5 Neut % (Auto) 76.5 H Lymph % (Auto) 9.4 L Forest % (Auto) 10.4 H Eos % (Auto) 3.3 Baso % (Auto) 0.4 Lymph # (Auto) 0.5 L Forest # (Auto) 0.5 Eos # (Auto) 0.2 Baso # (Auto) 0.02 Absolute Neuts (auto) 3.66 pCO2 pO2 HCO3 ABG pH ABG Total CO2 ABG O2 Saturation ABG O2 Content ABG Base Excess ABG Hemoglobin ABG Carboxyhemoglobin POC ABG HHb (Measured) ABG Methemoglobin ABG O2 Capacity Hgb O2 Saturation FiO2 Sodium Potassium Chloride Carbon Dioxide Anion Gap BUN Creatinine Est GFR ( Amer) Est GFR (Non-Af Amer) Random Glucose Calcium Magnesium Total Bilirubin Direct Bilirubin AST ALT Alkaline Phosphatase NT-Pro-B Natriuret Pep Total Protein Albumin Globulin Albumin/Globulin Ratio Fluid Albumin Radiology Impressions: Radiology Impressions Chest X-Ray 09/03/18 15:51 IMPRESSION: Interval removal ETT and NGT. Pulmonary venous congestive changes with large left and smaller right-sided effusions presumably associate with bilateral lower lobe atelectasis and/or infiltrates. Chest X-Ray 09/04/18 06:00 IMPRESSION: Pulmonary venous congestive changes with large left and small right-sided effusion. Suspect bibasilar atelectasis and/or infiltrates as well. Critical Care Progress Note - Nutrition Nutrition: Nutrition Category Date Time Status Liquid Diet [DIET] Diets 09/03/18 Dinner Ordered Addendum Addendum: 09/04/18 16:36 ICU Attending Addendum Patient seen and examined. Case reviewed on round with housestaff. Agree with resident note above with the following additions/exceptions 68M with hx of pmhx of chronic back pain and vertebral disc disease who admitted initially for b/l foot pain and back pain was being tx for foot infection however became progressively hypoxic with worsening bl effusions s/p intubation and right thoracentesis of 1800 transudate He is in shock unclear however likely cardiogenic vs septic. The BL nature of his effusions is consistent with cardiogenic however his LV function is not significantly low. he has more right heart failure weaned off dobutamine extubated this 09/03 abx as per ID would try and de-escalate of possible still having positional hypoxia which suggest pulm edema cont lasix may give BID CPAP is he gets sob cont nebs around the clock and steroids Rest of care as above in housestaff note Lynn Angel MD Pulmonary Critical Care Attending
--- NOTE | 2018-09-04 09:29 | CP.PCM.PN ---
<Sherita Ritter - Last Filed: 09/04/18 09:23> Subjective - Date & Time of Evaluation Date of Evaluation: 09/04/18 Time of Evaluation: 09:23 - Subjective Subjective: Podiatry progress note: Dr. Lloyd 68M patient seen and evaluated in ICU for b/l ulcerations. Patient alert this morning, resting comfortably. Patient denies nausea/vomiting/fever, however admits to shortness of breath and difficulty breathing today. Objective - Vital Signs/Intake and Output Vital Signs (last 24 hours): Temp Pulse Resp BP Pulse Ox 94.8 F L 73 13 115/52 L 93 L 09/04/18 02:10 09/04/18 02:10 09/04/18 02:10 09/04/18 02:00 09/04/18 02:10 Intake and Output: 09/04/18 09/04/18 06:59 18:59 Intake Total 100 Balance 100 - Medications Medications: Current Medications Acetaminophen (Tylenol 325mg Tab) 650 mg PO Q6 PRN PRN Reason: TEMP>=99.5F Last Admin: 09/03/18 13:54 Dose: 650 mg Acetaminophen (Tylenol 650 Mg Supp) 650 mg RC Q6H PRN PRN Reason: TEMP>=99.5F Acetylcysteine (Acetylcysteine 20%) 4 ml IH [id number] [facility] Last Admin: 09/04/18 07:48 Dose: 4 ml Bisacodyl (Dulcolax) 10 mg RC HS PRN PRN Reason: Constipation Budesonide (Pulmicort Respules) 0.5 mg IH [id number] [facility] Last Admin: 09/04/18 07:48 Dose: 0.5 mg Collagenase (Santyl) 0 gm TOP DAILY [facility] Last Admin: 09/03/18 09:15 Dose: 1 appl Cyanocobalamin (Vitamin B12 1000 Mcg/Ml Inj) 1,000 mcg IM DAILY [facility] Stop: 09/04/18 10:01 Last Admin: 09/03/18 09:10 Dose: 1,000 mcg Enoxaparin Sodium (Lovenox) 40 mg SC DAILY [facility]; Protocol Last Admin: 09/03/18 09:09 Dose: 40 mg Ergocalciferol (Drisdol 50,000 Intl Units Cap) 1 cap PO Q7D [facility] Last Admin: 09/02/18 15:26 Dose: 1 cap Folic Acid (Folic Acid) 1 mg PO DAILY [facility] Last Admin: 09/03/18 09:11 Dose: 1 mg Furosemide (Lasix) 40 mg IVP DAILY [facility] Last Admin: 09/03/18 10:20 Dose: 40 mg Hydrocortisone Sodium Succinate (Solu-Cortef) 50 mg IVP Q12 [facility] Last Admin: 09/03/18 21:53 Dose: 50 mg Linezolid (Zyvox 600mg/300ml D5w) 600 mg in 300 mls @ 200 mls/hr IVPB Q12 [facility]; Protocol Stop: 09/07/18 10:01 Last Admin: 09/03/18 21:43 Dose: 200 mls/hr Dexmedetomidine HCl (Precedex 400mcg/100ml) 400 mcg in 100 mls @ 3.856 mls/hr IV .Q24H PRN; Protocol PRN Reason: Sedation Last Admin: 09/04/18 08:20 Dose: 0.8 mcg/kg/hr, 15.422 mls/hr Dobutamine HCl/Dextrose (Dobutamine/Dextrose 5% 500mg/250ml) 500 mg in 250 mls @ 5.783 mls/hr IV .Q24H PRN; Protocol PRN Reason: TITRATE PER PROTOCOL Last Titration: 09/03/18 18:00 Dose: 0 mcg/kg/min, 0 mls/hr Meropenem/Sodium Chloride (Merrem Iv 500 Mg/Ns 50 Ml) 500 mg in 50 mls @ 100 mls/hr IVPB Q12 [facility]; Protocol Stop: 09/08/18 10:01 Last Admin: 09/03/18 21:43 Dose: 100 mls/hr Lactic Acid (Lac-Hydrin 12% Cream (140 G)) 0 ea TOP DAILY [facility] Last Admin: 09/03/18 09:16 Dose: 1 applic Levalbuterol HCl (Xopenex) 0.63 mg IH [id number] [facility] Last Admin: 09/04/18 07:48 Dose: 0.63 mg Metoprolol Tartrate (Lopressor) 50 mg PO Q8H [facility] Last Admin: 08/31/18 10:03 Dose: Not Given Morphine Sulfate (Morphine) 1 mg IVP Q4H PRN PRN Reason: Pain, severe (8-10) Mupirocin (Bactroban Ointment) 0 gm TOP BID [facility] Last Admin: 09/03/18 17:02 Dose: 1 appl Nicotine (Nicoderm Cq) 1 patch TD DAILY [facility] Last Admin: 09/03/18 09:13 Dose: 1 patch Nystatin (Mycostatin Cream) 0 ea TOP TID [facility] Ondansetron HCl (Zofran Inj) 4 mg IVP Q4H PRN PRN Reason: Nausea/Vomiting Pantoprazole Sodium (Protonix Inj) 40 mg IVP DAILY [facility] Last Admin: 09/03/18 09:11 Dose: 40 mg Polyethylene Glycol (Miralax) 17 gm PO DAILY [facility] Last Admin: 09/03/18 09:14 Dose: 17 gm Sodium Hypochlorite (Dakins Solution 0.25%) 0 ml TOP DAILY [facility] Last Admin: 09/03/18 09:14 Dose: 1 applic - Labs Labs: 09/04/18 06:30 09/04/18 06:30 PT 15.1 SECONDS (9.4-12.5) H 08/23/18 22:20 INR 1.36 08/23/18 22:20 APTT 27.9 Seconds (26.9-38.3) 08/23/18 22:20 - Constitutional Appears: Non-toxic - Head Exam Head Exam: ATRAUMATIC, NORMOCEPHALIC - Extremities Exam Additional comments: VASC: DP and PT non-palpable, TG warm to warm bilaterally, significant lymphedema noted bilaterally, non-pitting NEURO: grossly intact DERM: LEFT- 0.5 cm X 0.5 cm wound noted to submetatarsal 1 head, significantly improved, fibrotic base, no drainage, no tunneling, tracking or probe to bone, no malodor, multiple superficial wounds noted to the lateral aspect of the left ankle with 100% granular skin base, no drainage, no probe to bone, no tunneling or tracking, no malodor, chronic skin trophic changes secondary to long standing peripheral vascular disease, no signs of infection noted clinically RIGHT- superficial wound noted to the lateral aspect of the leg at the site of previous chronic skin trophic changes secondary to long standing peripheral vascular disease, wound base 100% granular, no drainage, mild malodor, no tunneling, tracking or probe to bone ORTHO: pain with range of motion, and on palpation to the feet and legs bilaterally - Psychiatric Exam Psychiatric exam: Normal Affect, Normal Mood Assessment and Plan - Assessment and Plan (Free Text) Assessment: 68M with bilateral lower extremity wounds Plan: Patient seen and evaluated with Dr. Lloyd Afebrile, WBC 4.8 Bilateral foot x-ray ordered; no evidence of OM Patient refused CT and MRI , states it is too painful Patient to be treated with IV Abx as he has osteomyelitis Obtained Left foot wound cultures: MRSA, Morg morgnanii Wound cleansed with saline and dressed with bactroban, maxorb, adaptic, ABD DSD No podiatric intervention at this time, in our clinical judgement no evidence of osteo, however, cannot be confirmed as patient has refused both MRI/CT Podiatry will continue to follow patient while in house <Kvng Lloyd - Last Filed: 09/06/18 09:04> Objective - Vital Signs/Intake and Output Vital Signs (last 24 hours): Temp Pulse Resp BP Pulse Ox 97.9 F 86 17 123/55 L 100 09/06/18 08:00 09/06/18 08:00 09/06/18 08:00 09/06/18 08:00 09/06/18 08:00 Intake and Output: 09/06/18 09/06/18 06:59 18:59 Intake Total 188 Output Total 800 Balance -612 - Medications Medications: Current Medications Acetaminophen (Tylenol 325mg Tab) 650 mg PO Q6 PRN PRN Reason: TEMP>=99.5F Last Admin: 09/03/18 13:54 Dose: 650 mg Acetaminophen (Tylenol 650 Mg Supp) 650 mg RC Q6H PRN PRN Reason: TEMP>=99.5F Acetylcysteine (Acetylcysteine 20%) 4 ml IH [id number] [facility] Last Admin: 09/06/18 08:11 Dose: 4 ml Bisacodyl (Dulcolax) 10 mg RC HS PRN PRN Reason: Constipation Budesonide (Pulmicort Respules) 0.5 mg IH [id number] [facility] Last Admin: 09/06/18 08:11 Dose: 0.5 mg Collagenase (Santyl) 0 gm TOP DAILY [facility] Last Admin: 09/05/18 10:52 Dose: 1 appl Enoxaparin Sodium (Lovenox) 40 mg SC DAILY [facility]; Protocol Last Admin: 09/05/18 10:41 Dose: 40 mg Ergocalciferol (Drisdol 50,000 Intl Units Cap) 1 cap PO Q7D [facility] Last Admin: 09/02/18 15:26 Dose: 1 cap Folic Acid (Folic Acid) 1 mg PO DAILY [facility] Last Admin: 09/05/18 10:43 Dose: 1 mg Furosemide (Lasix) 40 mg IVP DAILY [facility] Last Admin: 09/05/18 10:41 Dose: 40 mg Hydrocortisone Sodium Succinate (Solu-Cortef) 50 mg IVP DAILY [facility] Last Admin: 09/05/18 10:42 Dose: 50 mg Linezolid (Zyvox 600mg/300ml D5w) 600 mg in 300 mls @ 200 mls/hr IVPB Q12 [facility]; Protocol Stop: 09/07/18 10:01 Last Admin: 09/05/18 22:30 Dose: 200 mls/hr Dexmedetomidine HCl (Precedex 400mcg/100ml) 400 mcg in 100 mls @ 3.856 mls/hr IV .Q24H PRN; Protocol PRN Reason: Sedation Last Admin: 09/06/18 06:33 Dose: 0.8 mcg/kg/hr, 15.422 mls/hr Meropenem/Sodium Chloride (Merrem Iv 500 Mg/Ns 50 Ml) 500 mg in 50 mls @ 100 mls/hr IVPB Q12 [facility]; Protocol Stop: 09/08/18 10:01 Last Admin: 09/05/18 21:00 Dose: 100 mls/hr Potassium Chloride (Potassium Chloride 20 Meq/100 Ml) 20 meq in 100 mls @ 50 mls/hr IVPB Q2H [facility] Stop: 09/06/18 11:59 Lactic Acid (Lac-Hydrin 12% Cream (140 G)) 0 ea TOP DAILY [facility] Last Admin: 09/05/18 10:00 Dose: 1 applic Levalbuterol HCl (Xopenex) 0.63 mg IH [id number] [facility] Last Admin: 09/06/18 08:11 Dose: 0.63 mg Metoprolol Tartrate (Lopressor) 50 mg PO Q8H [facility] Last Admin: 08/31/18 10:03 Dose: Not Given Morphine Sulfate (Morphine) 1 mg IVP Q4H PRN PRN Reason: Pain, severe (8-10) Last Admin: 09/05/18 06:09 Dose: 1 mg Mupirocin (Bactroban Ointment) 0 gm TOP BID [facility] Last Admin: 09/05/18 18:08 Dose: 1 appl Nicotine (Nicoderm Cq) 1 patch TD DAILY [facility] Last Admin: 09/05/18 10:42 Dose: 1 patch Nystatin (Mycostatin Cream) 0 ea TOP TID [facility] Last Admin: 09/05/18 18:15 Dose: 1 cre Ondansetron HCl (Zofran Inj) 4 mg IVP Q4H PRN PRN Reason: Nausea/Vomiting Pantoprazole Sodium (Protonix Inj) 40 mg IVP DAILY [facility] Last Admin: 09/05/18 10:42 Dose: 40 mg Polyethylene Glycol (Miralax) 17 gm PO DAILY [facility] Last Admin: 09/05/18 10:43 Dose: Not Given Sodium Hypochlorite (Dakins Solution 0.25%) 0 ml TOP DAILY [facility] Last Admin: 09/05/18 10:51 Dose: 1 applic - Labs Labs: 09/06/18 06:19 09/06/18 06:19 PT 15.1 SECONDS (9.4-12.5) H 08/23/18 22:20 INR 1.36 08/23/18 22:20 APTT 27.9 Seconds (26.9-38.3) 08/23/18 22:20 Attending/Attestation - Attestation I have personally seen and examined this patient.: Yes I have fully participated in the care of the patient.: Yes I have reviewed all pertinent clinical information, including history, physical exam and plan: Yes
[2018-09-04] MEDS: MEROPENEM 500 MG in NS 500 MG/50 ML BAG IVPB SCH ×2 (09:38→21:00)
[2018-09-04] MEDS: Linezolid 600 mg in D5W 300 ml 600 MG/300 ML BAG IVPB SCH ×2 (09:42→21:35)
[2018-09-04] MEDS: Enoxaparin 40 mg Syringe SC SCH (09:42)
[2018-09-04] MEDS: POLYETHYLENE GLYCOL 3350 17 GM/Dose PACKET PO SCH (09:45)
[2018-09-04] MEDS: Mupirocin 2% Ointment 15 GM TUBE TOP SCH ×2 (09:46→18:50)
[2018-09-04] MEDS: Ammonium Lactate 12% Cream (140 g) TOP SCH (09:52)
[2018-09-04] MEDS: Dakin's Topical 0.25%-Half Strength (480 ml) TOP SCH (09:53)
[2018-09-04] MEDS: Nystatin 100,000 Units/gm Cream(15 gm) TOP SCH ×3 (10:00→18:47)
[2018-09-04] MEDS: Collagenase 250 Units/gm Ointment(30 gm) TOP SCH (10:00)
--- NOTE | 2018-09-04 10:18 | RAD ---
Date of service: 09/03/2018 HISTORY: SOB COMPARISON: Comparison chest 09/03/2018. FINDINGS: In situ right IJ central venous access catheter with tip in the SVC. Interval removal ETT and NGT. LUNGS: Pulmonary venous congestive changes with large left and smaller right-sided effusions presumably associate with bilateral lower lobe atelectasis and/or infiltrates. PLEURA: As above. No pneumothorax apparent. CARDIOVASCULAR: No aortic atherosclerotic calcification present. Heart size difficult to assess due to silhouetting particularly the left cardiac border OSSEOUS STRUCTURES: No significant abnormalities. VISUALIZED UPPER ABDOMEN: Normal. OTHER FINDINGS: None. IMPRESSION: Interval removal ETT and NGT. Pulmonary venous congestive changes with large left and smaller right-sided effusions presumably associate with bilateral lower lobe atelectasis and/or infiltrates.
--- NOTE | 2018-09-04 10:19 | RAD ---
Date of service: 09/04/2018 HISTORY: Follow-up COMPARISON: Comparison chest 09/03/2018 FINDINGS: In situ right IJ central line with tip in the SVC. LUNGS: Pulmonary venous congestive changes with large left and small right-sided effusion. Suspect bibasilar atelectasis and/or infiltrates as well. PLEURA: N as above. No pneumothorax apparent. CARDIOVASCULAR: No aortic atherosclerotic calcification present. Heart size difficult to assess due to silhouetting left cardiac border however heart does appear mildly enlarged OSSEOUS STRUCTURES: No significant abnormalities. VISUALIZED UPPER ABDOMEN: Normal. OTHER FINDINGS: None. IMPRESSION: Pulmonary venous congestive changes with large left and small right-sided effusion. Suspect bibasilar atelectasis and/or infiltrates as well.
--- NOTE | 2018-09-04 11:52 | CP.PCM.PN ---
Subjective - Date & Time of Evaluation Date of Evaluation: 09/04/18 Time of Evaluation: 09:25 - Subjective Subjective: Patient is now extubated, no fevers overnight, not in distress but still feels weak. Objective - Vital Signs/Intake and Output Vital Signs (last 24 hours): Temp Pulse Resp BP Pulse Ox 97 F L 97 H 20 137/62 97 09/03/18 13:54 09/03/18 14:00 09/03/18 12:00 09/03/18 10:20 09/03/18 12:00 Intake and Output: 09/03/18 09/03/18 06:59 18:59 Intake Total 672 100 Output Total 350 Balance 322 100 - Medications Medications: Current Medications Acetaminophen (Tylenol 325mg Tab) 650 mg PO Q6 PRN PRN Reason: TEMP>=99.5F Last Admin: 09/03/18 13:54 Dose: 650 mg Acetaminophen (Tylenol 650 Mg Supp) 650 mg RC Q6H PRN PRN Reason: TEMP>=99.5F Acetylcysteine (Acetylcysteine 20%) 4 ml IH [id number] [facility] Last Admin: 09/03/18 13:50 Dose: 4 ml Bisacodyl (Dulcolax) 10 mg RC HS PRN PRN Reason: Constipation Budesonide (Pulmicort Respules) 0.5 mg IH [id number] [facility] Last Admin: 09/03/18 07:15 Dose: 0.5 mg Collagenase (Santyl) 0 gm TOP DAILY [facility] Last Admin: 09/03/18 09:15 Dose: 1 appl Cyanocobalamin (Vitamin B12 1000 Mcg/Ml Inj) 1,000 mcg IM DAILY [facility] Stop: 09/04/18 10:01 Last Admin: 09/03/18 09:10 Dose: 1,000 mcg Enoxaparin Sodium (Lovenox) 40 mg SC DAILY [facility]; Protocol Last Admin: 09/03/18 09:09 Dose: 40 mg Ergocalciferol (Drisdol 50,000 Intl Units Cap) 1 cap PO Q7D [facility] Last Admin: 09/02/18 15:26 Dose: 1 cap Folic Acid (Folic Acid) 1 mg PO DAILY [facility] Last Admin: 09/03/18 09:11 Dose: 1 mg Furosemide (Lasix) 40 mg IVP DAILY [facility] Last Admin: 09/03/18 10:20 Dose: 40 mg Hydrocortisone Sodium Succinate (Solu-Cortef) 50 mg IVP Q12 [facility] Linezolid (Zyvox 600mg/300ml D5w) 600 mg in 300 mls @ 200 mls/hr IVPB Q12 [facility]; Protocol Stop: 09/07/18 10:01 Last Admin: 09/03/18 09:47 Dose: 200 mls/hr NOREPINEPHRINE BIT/0.9 % NACL (Levophed 4 Mg/ 250 Ml Ns Premixed) 4 mg in 250 mls @ 15 mls/hr IV .[id number] PRN; Protocol PRN Reason: TITRATE PER MD ORDER Last Titration: 09/02/18 03:00 Dose: 0 mcg/min, 0 mls/hr Dexmedetomidine HCl (Precedex 400mcg/100ml) 400 mcg in 100 mls @ 3.856 mls/hr IV .Q24H PRN; Protocol PRN Reason: Sedation Last Admin: 09/03/18 07:32 Dose: 0.8 mcg/kg/hr, 15.422 mls/hr Dobutamine HCl/Dextrose (Dobutamine/Dextrose 5% 500mg/250ml) 500 mg in 250 mls @ 5.783 mls/hr IV .Q24H PRN; Protocol PRN Reason: TITRATE PER PROTOCOL Last Admin: 09/03/18 02:41 Dose: 2.5 mcg/kg/min, 5.783 mls/hr Meropenem/Sodium Chloride (Merrem Iv 500 Mg/Ns 50 Ml) 500 mg in 50 mls @ 100 mls/hr IVPB Q12 [facility]; Protocol Stop: 09/08/18 10:01 Last Admin: 09/03/18 10:21 Dose: Not Given Lactic Acid (Lac-Hydrin 12% Cream (140 G)) 0 ea TOP DAILY [facility] Last Admin: 09/03/18 09:16 Dose: 1 applic Levalbuterol HCl (Xopenex) 0.63 mg IH [id number] [facility] Last Admin: 09/03/18 13:50 Dose: 0.63 mg Metoprolol Tartrate (Lopressor) 50 mg PO Q8H [facility] Last Admin: 08/31/18 10:03 Dose: Not Given Mupirocin (Bactroban Ointment) 0 gm TOP BID [facility] Last Admin: 09/03/18 10:18 Dose: 1 appl Nicotine (Nicoderm Cq) 1 patch TD DAILY [facility] Last Admin: 09/03/18 09:13 Dose: 1 patch Ondansetron HCl (Zofran Inj) 4 mg IVP Q4H PRN PRN Reason: Nausea/Vomiting Pantoprazole Sodium (Protonix Inj) 40 mg IVP DAILY [facility] Last Admin: 09/03/18 09:11 Dose: 40 mg Polyethylene Glycol (Miralax) 17 gm PO DAILY [facility] Last Admin: 09/03/18 09:14 Dose: 17 gm Sodium Hypochlorite (Dakins Solution 0.25%) 0 ml TOP DAILY [facility] Last Admin: 09/03/18 09:14 Dose: 1 applic - Labs Labs: 09/03/18 06:00 09/03/18 06:00 PT 15.1 SECONDS (9.4-12.5) H 08/23/18 22:20 INR 1.36 08/23/18 22:20 APTT 27.9 Seconds (26.9-38.3) 08/23/18 22:20 - Constitutional Appears: Chronically Ill - Head Exam Head Exam: NORMAL INSPECTION - Respiratory Exam Respiratory Exam: Decreased Breath Sounds - Cardiovascular Exam Cardiovascular Exam: +S1, +S2 - GI/Abdominal Exam GI & Abdominal Exam: Soft. absent: Tenderness - Extremities Exam Additional comments: both lower extremities with dressings in place Assessment and Plan - Assessment and Plan (Free Text) Plan: Assessment severe sepsis / S/P shockS/P ventilator-dependent respiratory failure and acute renal failure due to probable right lower lobe hospital-acquired pneumonia, with bilateral pleural effusions S/P right sided thoracentesis, slowly improving Infected left lower extremity wounds, R/O osteomyelitis, grew MRSA chronic back pain vertebral disc disease venous stasis dermatitis Plan switched IV Vancomycin to Zyvox and will also continue Merrem (day 5 of combina tion) - repeat blood cx negative, PCT is 0.61 - Zyvox will also cover the MRSA in the foot - target up to 7 days of antibiotics awaiting MRI of the foot but patient is critically ill currently patient had thoracentesis on the right and fluid looks to be transudative - reviewed CXR today with decreased left sided pleural effusion discussed with Dr. Lloyd - no surgery for the foot for now will continue to monitor clinically prognosis is guarded
--- NOTE | 2018-09-04 17:07 | RAD ---
Date of service: 09/04/2018 HISTORY: sob COMPARISON: Comparison made with prior study 09/04/2018 50 hr. FINDINGS: Note that the examination is slightly limited due to patient rotation to the left side. LUNGS: Near complete opacification left hemithorax consistent with some combination of large effusion atelectasis and/or infiltrate. Right lower lobe of opacity likely also representing atelectasis and or infiltrate with small right-sided effusion. Underlying pulmonary venous congestive changes also felt present. PLEURA: No significant pleural effusion identified, no pneumothorax apparent. CARDIOVASCULAR: No obvious aortic atherosclerotic calcification present. Normal cardiac size. No pulmonary vascular congestion. OSSEOUS STRUCTURES: No significant abnormalities. VISUALIZED UPPER ABDOMEN: Normal. OTHER FINDINGS: None. IMPRESSION: Slightly limited study due to patient rotation to the left side. Near complete opacification left hemithorax consistent with some combination of large effusion atelectasis and/or infiltrate. Right lower lobe of opacity likely also representing atelectasis and or infiltrate with small right-sided effusion. Underlying pulmonary venous congestive changes also felt present.
[2018-09-04 18:13] LABS: ARTERIAL BLOOD GAS HCO3 33.5 mmol/L (21-28); ARTERIAL BLOOD GAS HEMOGLOBIN 9.5 g/dL (11.7-17.4); ARTERIAL BLOOD GAS O2 CAPACITY 13.4 mL/dl (16-24); ARTERIAL BLOOD GAS O2 CONTENT 13.3 ML/dl (15-23); ARTERIAL BLOOD GAS O2 SAT 99.6 % (95-98); ARTERIAL BLOOD GAS PCO2 58 mm/Hg (35-45); ARTERIAL BLOOD GAS PH 7.37 (7.35-7.45); ARTERIAL BLOOD GAS TCO2 35.3 mmol.L (22-28)
--- NOTE | 2018-09-04 18:51 | PN ---
DATE: 09/04/2018 PULMONARY PROGRESS NOTE SUBJECTIVE: The patient remains on mechanical ventilation. The case has been discussed at length with the java software architect in attendance. The condition is significantly unchanged, persistent both respiratory and congestive heart failure with bilateral pleural effusions persist associated compressive atelectasis. No additional changes are noted. PHYSICAL EXAMINATION: VITAL SIGNS: Remain stable. The patient is afebrile, heart rate 88, respiratory rate 18-20, blood pressure 140/60. HEENT: Normocephalic, atraumatic. There is positive jugular venous distention but no bruit or thyromegaly. CARDIOVASCULAR: Regular rhythm. Systolic ejection murmur at the lower left sternal border. S1, S2. S3 gallop persists. LUNGS: Bilateral rales and rhonchi. There is no wheezing appreciated. ABDOMEN: Soft. Bowel sounds normoactive without mass, guarding, rebound or organomegaly. EXTREMITIES: Reveal edema with no cyanosis or clubbing. There is no Homans' sign. NEUROLOGIC: Limited, unable to further assess. LABORATORY DATA: Chest x-ray today shows persistent pulmonary vascular congestion with associated pleural effusions bilaterally. CLINICAL IMPRESSION: 1. Respiratory failure. 2. Congestive heart failure. 3. Bilateral pleural effusions. 4. Compressive atelectasis. 5. Probable right lower lobe pneumonia. 6. Severe chronic obstructive pulmonary disease. PLAN: Case discussed at length with java software architect caring for the patient. We will follow closely with you and decide the need for further intervention. Continue present medications as outlined above. Carloz Suarez MD MTDD
--- NOTE | 2018-09-05 01:43 | PN ---
DATE: 09/04/2018 SUBJECTIVE: The patient is seen in ICU bed 4. The patient is lying in the bed. The patient was extubated, on Venturi mask. The patient is comfortable, does not appear to be in any distress. Overnight nurse's notes were reviewed. The patient was extubated yesterday without any adverse event. The patient refused chest x-ray post-intubation. PHYSICAL EXAMINATION: VITAL SIGNS: Vital signs in the last 24-48 hours. Last 24 hours, the patient's T-max is still 94 to 95 degrees Fahrenheit. Telemetry shows sinus rhythm, heart rate averaging in 50s and 60s beats per minute. Blood pressure 125/55, 113/45, 127/55, 120/53, 116/54, 106/51, 109/47. Respiration 19. O2 sat 100%. Intake/output: Output is 1001. HEAD: Normocephalic, atraumatic. HEENT: Shows pinkish pale conjunctivae. Anicteric sclerae. No oropharyngeal lesion. NECK: No neck rigidity. CHEST: Kyphosis. LUNGS: Show decreased breath sound on the left. Positive rhonchi, right-sided lung field and upper lung field bilaterally. CARDIOVASCULAR: S1 and S2, regular rhythm. Positive systolic murmur in left sternal border, right second intercostal space, left sternal border, left second intercostal space. ABDOMEN: Soft. Positive bowel sounds. GENITALIA: Male. Positive Abrams catheter. EXTREMITIES: Lower extremity examination shows almost complete resolution of the lymphedema. Positive Multi-Podus boot. Positive SCDs noted. MUSCULOSKELETAL: Shows a body mass index of 26.6. NEUROLOGIC: The patient is alert, awake, responsive. He is able to move upper and lower extremities without assistance. Gait examination is not tested. DIAGNOSTICS: On 09/04/2018, hemoglobin and hematocrit 9.3 and 30, platelets 129, granulocytes 76. ABG on 100% FiO2, pH of 7.37, pCO2 of 58, P02 of 148, bicarb 33, saturation of 99.6. CMP and LFTs were from 09/04/2018: BUN is down to 58, creatinine is down to 1.9, GFR 35, glucose 138, calcium 7.8, magnesium 2. LFTs are normal. BNP 17,200. Total protein 5.4, albumin 2. Repeat blood cultures on 08/28/2018 onwards, urine cultures, MRSA cultures are all negative. The patient received 1 unit of PRBC. The patient's chest x-ray in the last 24-48 hours, 24 hours were reviewed. The patient's chest x-ray shows pulmonary vascular congestion, effusion, left more than the right with almost complete opacification of the left lung noted. Bibasilar atelectasis and infiltrates noted. EKG shows sinus rhythm, right bundle-branch block, significant baseline artifact. IMPRESSION AND PLAN: 1. Hypothermia. 2. Status post ventilator-dependent respiratory failure, status post extubation. 3. Sinus bradycardia. 4. Leukocytosis with granulocytosis and bandemia. 5. Relative thrombocytopenia with decreasing platelet count from 349 to 129. 6. Elevated D-dimer, etiology undetermined. 7. Hypercarbia. 8. Acute hypercarbic hypoxemic respiratory failure with respiratory acidosis and hypercarbia and carbon dioxide narcosis. 9. Hyponatremia. 10. Acute renal failure and acute kidney injury. 11. Prediabetes with hemoglobin A1c of 6.4. 12. Hypocalcemia. 13. Most likely iron-deficiency anemia with elevated erythropoietin level. 14. Most probable acute right-sided diastolic congestive heart failure with elevated ProBNP and pulmonary hypertension. 15. Elevated C-reactive protein of greater than 15. 16. Mild protein malnutrition and hypoalbuminemia. 17. Right-sided diastolic congestive heart failure with elevated ProBNP. 18. Proteinuria. 19. Ketonuria. 20. Microscopic hematuria. 21. Large left pleural effusion. 22. History of narcotic-dependent pain syndrome. 23. Chronic narcotic abuse. 24. History of marijuana abuse and dependence. 25. Bilateral lower extremity Proteus penneri, Morganella morganii, methicillin-resistant Staphylococcus aureus, Providencia rettgeri, and Corynebacterium species, bilateral lower extremity venous stasis cellulitis and dermatitis. 26. Status post packed red blood cell transfusion. 27. Right-sided diastolic congestive heart failure with pulmonary vascular congestive changes and large left pleural effusion and right pleural effusion. 28. Bibasilar pneumonia and atelectasis. 29. Right bundle-branch block. 30. Sinus tachycardia. 31. Gait dysfunction. 32. Bilateral lower extremity lymphedema (resolved). 33. Near-complete opacification of the left hemothorax, questionable large left pleural effusion, atelectasis and pneumonia. 34. Right lower lobe pneumonia, atelectasis and effusion. 35. Pulmonary vascular congestion and right-sided diastolic congestive heart failure. 36. Left ventricular ejection fraction of 53%. 37. Grade I abnormal relaxation pattern. 38. Moderately dilated and moderately hypokinetic right ventricle. 39. Moderately dilated right atrium. 40. Severely thickened aortic valve. 41. Moderately thickened mitral valve. 42. Trace mitral regurgitation. 43. [id number] pulmonary hypertension with right ventricular systolic pressure of 62 mmHg. 44. Status post ultrasound-guided right thoracentesis with removal of 1700 mL of transudative pleural fluid. 45. Severe sepsis with multilobar bilateral hospital-acquired and healthcare-associated pneumonia. 46. Status post hypotensive hypovolemic septic shock. 47. Spinal vertebral disk disease. 48. Venous stasis dermatitis of the lower extremity. 49. Deconditioning. 50. Bilateral lower extremity venous stasis cellulitis and wounds of the lower extremities. 51. Questionable anxiety disorder. 52. Acute kidney injury. 53. Stage III sacral decubitus ulceration. 54. Multiple sacral decubitus and gluteal ulcerations and posterior thigh ulcerations. 55. Right-sided transudative pleural effusion. 56. Acute tubular necrosis, acute kidney injury. 57. Constipation. 58. Nicotine dependence. PLAN: At this time, the patient has been ordered serial labs. CURRENT CONSULTATIONS: 1. Surgery. 2. Infectious Disease. 3. Cardiology. 4. Interventional Radiology. 5. Gastroenterology. 6. Hematology. 7. Nephrology. 8. Pulmonary. 9. Podiatry. CURRENT MEDICATIONS: Mucomyst nebulizer 20% 4 mL every 6 hours with Xopenex nebulizer every 6 hours. The patient is on Bactroban cream. The patient is on Dakin solution. The patient is on Precedex drip. The patient's dobutamine is considered to be weaned off to stopped. Drisdol 50,000 units weekly, Dulcolax rectal suppository 10 mg at bedtime p.r.n., folic acid 1 mg daily, Lac-Hydrin lotion to the both lower extremities daily. The patient is started on Lasix 40 mg IV daily by the ICU team. The patient is on Lopressor 50 mg every 8 hours, Lovenox 40 mg subcu daily, meropenem 500 mg IV every 12 hours, MiraLax 17 g daily, morphine 1 mg IV every 4 hours p.r.n., Mycostatin cream, nicotine patch 21 mg daily, Protonix 40 mg IV daily, Pulmicort nebulizer 0.5 mg every 12 hours, Santyl. The patient's Solu-Cortef was decreased to 50 mg IV daily. The patient is on Xopenex nebulizer, Zofran 4 mg IV every 4 hours, Zyvox 600 mg IV every 12 hours. Repeat chest x-ray ordered. The patient is ordered BiPAP. The patient is started on liquid diet.. Infectious disease consultation is following the patient. As mentioned, the patient's platelet count has dropped from 349 to 129, and the patient is presently on Zyvox. The patient's overall prognosis is guarded to poor. Condition remains critical. Dictated and electronically signed, not read. Carlos Hernandez MD
[2018-09-05] MEDS: Levalbuterol 0.63 MG/3 ML Inhal Soln UD IH SCH ×4 (03:05→20:00)
[2018-09-05] MEDS: Acetylcysteine 20% Inhal Soln (4ml) IH SCH ×3 (03:05→20:00)
[2018-09-05] MEDS: Dexmedetomidine 400mcg/100mL 400 MCG/100 ML BOTTLE IV PRN ×3 (04:16→18:03)
[2018-09-05] MEDS: Morphine 2 mg/ml ISec IVP PRN (06:09)
[2018-09-05 06:37] LABS: ARTERIAL BLOOD GAS HCO3 34.1 mmol/L (21-28); ARTERIAL BLOOD GAS HEMOGLOBIN 9.5 g/dL (11.7-17.4); ARTERIAL BLOOD GAS O2 CAPACITY 13.2 mL/dl (16-24); ARTERIAL BLOOD GAS O2 CONTENT 13.1 ML/dl (15-23); ARTERIAL BLOOD GAS O2 SAT 99.2 % (95-98); ARTERIAL BLOOD GAS PCO2 49 mm/Hg (35-45); ARTERIAL BLOOD GAS PH 7.45 (7.35-7.45); ARTERIAL BLOOD GAS TCO2 35.6 mmol.L (22-28)
[2018-09-05 06:43] LABS: BASO # 0.02 K/mm3 (0.0-2.0); BASO % 0.4 % (0.0-3.0); EOS # 0.3 (0.0-0.7); EOS % 6.6 % (1.5-5.0); HEMOGLOBIN 9.7 g/dL (14.0-18.0); LYMPH # 0.8 (1.2-3.4); LYMPH % 18.3 % (22.0-35.0); MEAN CORPUSCULAR HEMOGLOBIN 27.3 pg (25.0-35.0); MEAN CORPUSCULAR HGB CONC 30.7 g/dl (31.0-37.0); MEAN PLATELET VOLUME 10.2 fl (7.0-11.0); MONO # 0.5 (0.1-0.6); MONO % 10.8 % (1.0-6.0); RBC 3.55 10^6/uL (3.5-6.1); RED CELL DISTRIBUTION WIDTH 14.6 % (11.5-14.5); WHITE BLOOD COUNT 4.5 10^3/uL (4.5-11.0)
[2018-09-05 06:57] LABS: ALB/GLOB RATIO 0.7 (1.1-1.8); ALBUMIN 2.2 g/dL (3.0-4.8); BILIRUBIN,DIRECT 0.7 mg/dL (0.0-0.4); CALCIUM 7.9 mg/dL (8.4-10.5)
[2018-09-05] MEDS: Budesonide 0.5 mg/2 ml Inhal Susp UD IH SCH ×2 (07:43→20:00)
[2018-09-05] MEDS ORDERED: Potassium Chloride 20 mEq ER Tab PO ONE (08:49)
--- NOTE | 2018-09-05 09:53 | CP.CCUPN ---
<Augusto Zimmerman - Last Filed: 09/05/18 13:35> CCU Subjective - Physician Review Subjective (Free Text): 09/05/18 09:50 Augusto Zimmerman, PGY-1 ICU Progress Note for Dr. Angel: Pt was seen and examined this AM by ICU team. Overnight the pt had no acute issues. Pt only on precedex drip. Pt on BiPAP 2/2 resp distress which occured yesterday. Pt sating well on bipap. CCU Objective - Vital Signs / Intake & Output Vital Signs (Last 4 hours): Vital Signs Temp Pulse Resp BP Pulse Ox 09/05/18 09:00 95.7 F L 61 21 118/55 L 100 09/05/18 08:59 95.9 F L 60 100 09/05/18 08:50 95.9 F L 58 L 100 09/05/18 08:48 95.9 F L 59 L 100 09/05/18 08:45 95.9 F L 59 L 20 115/53 L 100 09/05/18 08:44 95.9 F L 58 L 100 09/05/18 08:42 95.9 F L 66 100 09/05/18 08:40 95.9 F L 60 24 100 09/05/18 08:38 95.9 F L 60 100 09/05/18 08:31 95.9 F L 61 100 09/05/18 08:30 95.9 F L 59 L 6 L 121/49 L 100 09/05/18 08:20 96.1 F L 62 14 100 09/05/18 08:15 96.1 F L 60 15 127/56 L 100 09/05/18 08:13 96.1 F L 60 100 09/05/18 08:12 96.1 F L 56 L 100 09/05/18 08:11 96.1 F L 58 L 100 09/05/18 08:10 96.1 F L 56 L 13 100 09/05/18 08:06 96.1 F L 59 L 100 09/05/18 08:05 96.1 F L 58 L 100 09/05/18 08:04 96.1 F L 57 L 100 09/05/18 08:01 96.1 F L 62 100 09/05/18 08:00 122/56 L 09/05/18 07:59 96.1 F L 56 L 100 09/05/18 07:57 96.1 F L 56 L 100 09/05/18 07:52 96.1 F L 64 100 09/05/18 07:50 96.1 F L 72 26 H 100 09/05/18 07:45 96.3 F L 68 16 126/59 L 100 09/05/18 07:40 96.1 F L 60 15 100 09/05/18 07:39 96.3 F L 59 L 100 09/05/18 07:37 96.3 F L 61 100 09/05/18 07:36 96.3 F L 62 100 09/05/18 07:34 96.3 F L 65 100 09/05/18 07:30 96.3 F L 67 14 120/53 L 100 09/05/18 07:26 96.3 F L 62 100 09/05/18 07:20 96.3 F L 59 L 15 100 09/05/18 07:19 96.3 F L 59 L 100 09/05/18 07:18 96.3 F L 60 100 09/05/18 07:16 96.3 F L 59 L 100 09/05/18 07:15 124/52 L 09/05/18 07:14 96.3 F L 63 16 100 09/05/18 07:13 96.3 F L 63 100 09/05/18 07:11 96.3 F L 60 100 09/05/18 07:10 96.3 F L 60 13 100 09/05/18 07:09 96.3 F L 63 100 09/05/18 07:08 96.3 F L 60 100 09/05/18 07:07 96.3 F L 61 100 09/05/18 07:05 96.3 F L 60 100 09/05/18 07:04 96.3 F L 58 L 100 09/05/18 07:03 96.3 F L 60 100 09/05/18 07:02 96.3 F L 60 100 09/05/18 07:00 96.1 F L 66 15 124/56 L 100 09/05/18 06:59 96.1 F L 60 100 09/05/18 06:58 96.1 F L 59 L 100 09/05/18 06:57 96.1 F L 58 L 100 09/05/18 06:56 96.1 F L 59 L 100 09/05/18 06:55 96.1 F L 58 L 100 09/05/18 06:53 96.3 F L 62 100 09/05/18 06:50 96.3 F L 65 12 99 09/05/18 06:47 96.3 F L 60 98 09/05/18 06:45 96.3 F L 66 15 120/57 L 97 09/05/18 06:41 96.3 F L 63 99 09/05/18 06:40 96.3 F L 69 25 H 100 09/05/18 06:36 96.3 F L 61 100 09/05/18 06:31 96.3 F L 62 100 09/05/18 06:30 96.3 F L 60 21 126/53 L 100 09/05/18 06:29 96.3 F L 61 99 09/05/18 06:20 96.3 F L 68 18 98 09/05/18 06:16 96.3 F L 55 L 99 09/05/18 06:15 121/51 L 09/05/18 06:14 96.3 F L 59 L 99 09/05/18 06:10 96.3 F L 58 L 98 09/05/18 06:09 96.3 F L 60 98 09/05/18 06:00 96.4 F L 101 H 26 H 102/48 L 87 L 09/05/18 05:57 96.3 F L 87 L 09/05/18 05:55 79.2 F L 92 L Intake and Output (Last 8hrs): Intake & Output 09/04/18 09/05/18 09/05/18 22:59 06:59 14:59 Intake Total 850 732 Output Total 1001 800 Balance -151 -68 Intake: IV 600 732 Right Internal Jugular 110 antibiotic 350 350 precedex 150 172 Oral 250 Output: Urine 1000 800 2-way Urethral 1000 800 Stool 1 Other: # Bowel Movements 1 0 - Physical Exam Head: Positive for: Atraumatic, Normocephalic Pupils: Positive for: PERRL Extroacular Muscles: Positive for: EOMI Conjunctiva: Positive for: Normal Mouth: Positive for: Moist Mucous Membranes Neck: Positive for: Normal Range of Motion Respiratory/Chest: Positive for: Decreased Breath Sounds. Negative for: Respiratory Distress, Accessory Muscle Use, Wheezes, Rales, Rhonchi Cardiovascular: Positive for: Regular Rate and Rhythm, Normal S1, S2. Negative for: Murmurs Abdomen: Positive for: Normal Bowel Sounds. Negative for: Tenderness, Distention, Peritoneal Signs Back: Positive for: Decubitus Ulcer (Sacral) Upper Extremity: Positive for: Normal Inspection. Negative for: Cyanosis, Edema Lower Extremity: Positive for: Normal Inspection, Normal ROM, Other (2 large skin decubiti on the posterior thighs bilaterally, both infected with surrounding erythema) Neurological: Positive for: GCS=15, CN II-XII Intact, Speech Normal Skin: Positive for: Warm, Dry, Normal Color. Negative for: Rashes Psychiatric: Positive for: Alert, Oriented x 3, Normal Insight, Normal Concentration - Medications Active Medications: Active Medications Generic Name Dose Route Start Last Admin Trade Name Freq PRN Reason Stop Dose Admin Acetaminophen 650 mg 08/24/18 00:04 09/03/18 13:54 Tylenol 325mg Tab PO 650 mg Q6 PRN Administration TEMP>=99.5F Acetaminophen 650 mg 08/24/18 00:04 Tylenol 650 Mg Supp RC Q6H PRN TEMP>=99.5F Acetylcysteine 4 ml 08/24/18 09:00 09/05/18 07:43 Acetylcysteine 20% IH 4 ml [id number] CASSY Administration Bisacodyl 10 mg 08/28/18 12:39 Dulcolax RC HS PRN Constipation Budesonide 0.5 mg 09/02/18 08:00 09/05/18 07:43 Pulmicort Respules IH 0.5 mg [id number] CASSY Administration Collagenase 0 gm 08/25/18 10:00 09/04/18 10:00 Santyl TOP 1 appl DAILY CASSY Administration Enoxaparin Sodium 40 mg 08/31/18 10:00 09/04/18 09:42 Lovenox SC 40 mg DAILY CASSY Administration Protocol Ergocalciferol 1 cap 08/26/18 15:00 09/02/18 15:26 Drisdol 50,000 Intl Units Cap PO 1 cap Q7D CASSY Administration Folic Acid 1 mg 08/26/18 15:00 09/04/18 09:56 Folic Acid PO 1 mg DAILY CASSY Administration Furosemide 40 mg 09/02/18 10:00 09/04/18 09:43 Lasix IVP 40 mg DAILY CASSY Administration Hydrocortisone Sodium Succinate 50 mg 09/05/18 10:00 Solu-Cortef IVP DAILY CASSY Linezolid 600 mg in 300 mls @ 200 mls/hr 08/31/18 10:00 09/04/18 21:35 Zyvox 600mg/300ml D5w IVPB 09/07/18 10:01 200 mls/hr Q12 CASSY Administration Protocol Dexmedetomidine HCl 400 mcg in 100 mls @ 3.856 mls/hr 08/31/18 16:50 09/05/18 04:16 Precedex 400mcg/100ml IV 0.8 mcg/kg/hr .Q24H PRN 15.422 mls/hr Sedation Administration Protocol 0.2 MCG/KG/HR Dobutamine HCl/Dextrose 500 mg in 250 mls @ 5.783 mls/hr 09/01/18 11:23 09/03/18 18:00 Dobutamine/Dextrose 5% 500mg/250ml IV 0 mcg/kg/min .Q24H PRN 0 mls/hr TITRATE PER PROTOCOL Titration Protocol 2.5 MCG/KG/MIN Meropenem/Sodium Chloride 500 mg in 50 mls @ 100 mls/hr 09/03/18 10:00 09/04/18 21:00 Merrem Iv 500 Mg/Ns 50 Ml IVPB 09/08/18 10:01 100 mls/hr Q12 CASSY Administration Protocol Lactic Acid 0 ea 08/28/18 11:45 09/04/18 09:52 Lac-Hydrin 12% Cream (140 G) TOP 1 applic DAILY CASSY Administration Levalbuterol HCl 0.63 mg 09/04/18 20:00 09/05/18 07:43 Xopenex IH 0.63 mg [id number] CASSY Administration Metoprolol Tartrate 50 mg 08/30/18 09:00 08/31/18 10:03 Lopressor PO Not Given Q8H CASSY Morphine Sulfate 1 mg 09/03/18 15:46 09/05/18 06:09 Morphine IVP 1 mg Q4H PRN Administration Pain, severe (8-10) Mupirocin 0 gm 08/25/18 10:00 09/04/18 18:50 Bactroban Ointment TOP 1 appl BID CASSY Administration Nicotine 1 patch 08/24/18 10:00 09/04/18 09:44 Nicoderm Cq TD 1 patch DAILY CASSY Administration Nystatin 0 ea 09/03/18 18:00 09/04/18 18:47 Mycostatin Cream TOP 1 cre TID CASSY Administration Ondansetron HCl 4 mg 08/24/18 00:04 Zofran Inj IVP Q4H PRN Nausea/Vomiting Pantoprazole Sodium 40 mg 09/02/18 10:00 09/04/18 09:42 Protonix Inj IVP 40 mg DAILY CASSY Administration Polyethylene Glycol 17 gm 08/31/18 10:00 09/04/18 09:45 Miralax PO Not Given DAILY CASSY Sodium Hypochlorite 0 ml 09/01/18 13:00 09/04/18 09:53 Dakins Solution 0.25% TOP 1 applic DAILY CASSY Administration - Patient Studies Lab Studies: Microbiology Studies 08/30/18 12:50 Blood Culture - Final Blood-Venous NO GROWTH AFTER 5 DAYS Gram Stain - Final TEST NOT PERFORMED 08/30/18 11:20 Blood Culture - Final Blood-Venous NO GROWTH AFTER 5 DAYS Gram Stain - Final TEST NOT PERFORMED Lab Studies 09/05/18 09/05/18 09/05/18 Range/Units 06:30 06:15 06:15 WBC 4.5 (4.5-11.0) 10^3/uL RBC 3.55 (3.5-6.1) 10^6/uL Hgb 9.7 L (14.0-18.0) g/dL Hct 31.6 L (42.0-52.0) % MCV 89.0 (80.0-105.0) fl MCH 27.3 (25.0-35.0) pg MCHC 30.7 L (31.0-37.0) g/dl RDW 14.6 H (11.5-14.5) % Plt Count 125 (120.0-450.0) 10^3/uL MPV 10.2 (7.0-11.0) fl Neut % (Auto) 63.9 (50.0-68.0) % Lymph % (Auto) 18.3 L (22.0-35.0) % [place] % (Auto) 10.8 H (1.0-6.0) % Eos % (Auto) 6.6 H (1.5-5.0) % Baso % (Auto) 0.4 (0.0-3.0) % Lymph # (Auto) 0.8 L (1.2-3.4) [place] # (Auto) 0.5 (0.1-0.6) Eos # (Auto) 0.3 (0.0-0.7) Baso # (Auto) 0.02 (0.0-2.0) K/mm3 Absolute Neuts (auto) 2.89 (1.4-6.5) pCO2 49 H (35-45) mm/Hg pO2 109.0 H (80-100) mm/Hg HCO3 34.1 H (21-28) mmol/L ABG pH 7.45 (7.35-7.45) ABG Total CO2 35.6 H (22-28) mmol.L ABG O2 Saturation 99.2 H (95-98) % ABG O2 Content 13.1 L (15-23) ML/dl ABG Base Excess 9.0 H (-2.0-3.0) mmol/L ABG Hemoglobin 9.5 L (11.7-17.4) g/dL ABG Carboxyhemoglobin 1.4 (0.5-1.5) % POC ABG HHb (Measured) 0.8 (0-5) % ABG Methemoglobin 1.1 (0.0-3.0) % ABG O2 Capacity 13.2 L (16-24) mL/dl Hgb O2 Saturation 96.7 (95.0-98.0) % FiO2 100.0 % Sodium 137 (132-148) mmol/L Potassium 3.4 L (3.6-5.0) mmol/L Chloride 99 (98-107) mmol/L Carbon Dioxide 33 (21-33) mmol/L Anion Gap 8 L (10-20) BUN 60 H (7-21) mg/dL Creatinine 2.0 H (0.8-1.5) mg/dl Est GFR ( Amer) 40 Est GFR (Non-Af Amer) 33 Random Glucose 106 (70-110) mg/dL Calcium 7.9 L (8.4-10.5) mg/dL Phosphorus 5.0 H (2.5-4.5) mg/dL Magnesium 2.1 (1.7-2.2) mg/dL Total Bilirubin 0.8 (0.2-1.3) mg/dL Direct Bilirubin 0.7 H (0.0-0.4) mg/dL AST 27 (17-59) U/L ALT 19 (7-56) U/L Alkaline Phosphatase 66 (38-126) U/L Total Protein 5.4 L (5.8-8.3) g/dL Albumin 2.2 L (3.0-4.8) g/dL Globulin 3.2 gm/dL Albumin/Globulin Ratio 0.7 L (1.1-1.8) 09/04/18 Range/Units 18:00 WBC (4.5-11.0) 10^3/uL RBC (3.5-6.1) 10^6/uL Hgb (14.0-18.0) g/dL Hct (42.0-52.0) % MCV (80.0-105.0) fl MCH (25.0-35.0) pg MCHC (31.0-37.0) g/dl RDW (11.5-14.5) % Plt Count (120.0-450.0) 10^3/uL MPV (7.0-11.0) fl Neut % (Auto) (50.0-68.0) % Lymph % (Auto) (22.0-35.0) % [place] % (Auto) (1.0-6.0) % Eos % (Auto) (1.5-5.0) % Baso % (Auto) (0.0-3.0) % Lymph # (Auto) (1.2-3.4) [place] # (Auto) (0.1-0.6) Eos # (Auto) (0.0-0.7) Baso # (Auto) (0.0-2.0) K/mm3 Absolute Neuts (auto) (1.4-6.5) pCO2 58 H (35-45) mm/Hg pO2 148.0 H (80-100) mm/Hg HCO3 33.5 H (21-28) mmol/L ABG pH 7.37 (7.35-7.45) ABG Total CO2 35.3 H (22-28) mmol.L ABG O2 Saturation 99.6 H (95-98) % ABG O2 Content 13.3 L (15-23) ML/dl ABG Base Excess 7.0 H (-2.0-3.0) mmol/L ABG Hemoglobin 9.5 L (11.7-17.4) g/dL ABG Carboxyhemoglobin 1.5 (0.5-1.5) % POC ABG HHb (Measured) 0.4 (0-5) % ABG Methemoglobin 1.0 (0.0-3.0) % ABG O2 Capacity 13.4 L (16-24) mL/dl Hgb O2 Saturation 97.1 (95.0-98.0) % FiO2 100.0 % Sodium (132-148) mmol/L Potassium (3.6-5.0) mmol/L Chloride (98-107) mmol/L Carbon Dioxide (21-33) mmol/L Anion Gap (10-20) BUN (7-21) mg/dL Creatinine (0.8-1.5) mg/dl Est GFR ( Amer) Est GFR (Non-Af Amer) Random Glucose (70-110) mg/dL Calcium (8.4-10.5) mg/dL Phosphorus (2.5-4.5) mg/dL Magnesium (1.7-2.2) mg/dL Total Bilirubin (0.2-1.3) mg/dL Direct Bilirubin (0.0-0.4) mg/dL AST (17-59) U/L ALT (7-56) U/L Alkaline Phosphatase (38-126) U/L Total Protein (5.8-8.3) g/dL Albumin (3.0-4.8) g/dL Globulin gm/dL Albumin/Globulin Ratio (1.1-1.8) Laboratory Results - last 24 hr 09/04/18 09/05/18 09/05/18 18:00 06:15 06:15 WBC 4.5 RBC 3.55 Hgb 9.7 L Hct 31.6 L MCV 89.0 MCH 27.3 MCHC 30.7 L RDW 14.6 H Plt Count 125 MPV 10.2 Neut % (Auto) 63.9 Lymph % (Auto) 18.3 L [place] % (Auto) 10.8 H Eos % (Auto) 6.6 H Baso % (Auto) 0.4 Lymph # (Auto) 0.8 L [place] # (Auto) 0.5 Eos # (Auto) 0.3 Baso # (Auto) 0.02 Absolute Neuts (auto) 2.89 pCO2 58 H pO2 148.0 H HCO3 33.5 H ABG pH 7.37 ABG Total CO2 35.3 H ABG O2 Saturation 99.6 H ABG O2 Content 13.3 L ABG Base Excess 7.0 H ABG Hemoglobin 9.5 L ABG Carboxyhemoglobin 1.5 POC ABG HHb (Measured) 0.4 ABG Methemoglobin 1.0 ABG O2 Capacity 13.4 L Hgb O2 Saturation 97.1 FiO2 100.0 Sodium 137 Potassium 3.4 L Chloride 99 Carbon Dioxide 33 Anion Gap 8 L BUN 60 H Creatinine 2.0 H Est GFR ( Amer) 40 Est GFR (Non-Af Amer) 33 Random Glucose 106 Calcium 7.9 L Phosphorus 5.0 H Magnesium 2.1 Total Bilirubin 0.8 Direct Bilirubin 0.7 H AST 27 ALT 19 Alkaline Phosphatase 66 Total Protein 5.4 L Albumin 2.2 L Globulin 3.2 Albumin/Globulin Ratio 0.7 L 09/05/18 06:30 WBC RBC Hgb Hct MCV MCH MCHC RDW Plt Count MPV Neut % (Auto) Lymph % (Auto) [place] % (Auto) Eos % (Auto) Baso % (Auto) Lymph # (Auto) [place] # (Auto) Eos # (Auto) Baso # (Auto) Absolute Neuts (auto) pCO2 49 H pO2 109.0 H HCO3 34.1 H ABG pH 7.45 ABG Total CO2 35.6 H ABG O2 Saturation 99.2 H ABG O2 Content 13.1 L ABG Base Excess 9.0 H ABG Hemoglobin 9.5 L ABG Carboxyhemoglobin 1.4 POC ABG HHb (Measured) 0.8 ABG Methemoglobin 1.1 ABG O2 Capacity 13.2 L Hgb O2 Saturation 96.7 FiO2 100.0 Sodium Potassium Chloride Carbon Dioxide Anion Gap BUN Creatinine Est GFR ( Amer) Est GFR (Non-Af Amer) Random Glucose Calcium Phosphorus Magnesium Total Bilirubin Direct Bilirubin AST ALT Alkaline Phosphatase Total Protein Albumin Globulin Albumin/Globulin Ratio Radiology Impressions: Radiology Impressions Chest X-Ray 09/03/18 15:51 IMPRESSION: Interval removal ETT and NGT. Pulmonary venous congestive changes with large left and smaller right-sided effusions presumably associate with bilateral lower lobe atelectasis and/or infiltrates. Chest X-Ray 09/04/18 06:00 IMPRESSION: Pulmonary venous congestive changes with large left and small right-sided effusion. Suspect bibasilar atelectasis and/or infiltrates as well. Chest X-Ray 09/04/18 12:50 IMPRESSION: Slightly limited study due to patient rotation to the left side. Near complete opacification left hemithorax consistent with some combination of large effusion atelectasis and/or infiltrate. Right lower lobe of opacity likely also representing atelectasis and or infiltrate with small right-sided effusion. Underlying pulmonary venous congestive changes also felt present. Critical Care Progress Note - Nutrition Nutrition: Nutrition Category Date Time Status Liquid Diet [DIET] Diets 09/03/18 Dinner Ordered Assessment/Plan - Assessment and Plan (Free Text) Assessment: Pt is a 68 yo M with pmhx of chronic back pain and vertebral disc disease who presented [place] [facility] for complaints of b/l foot pain and back pain. ICU is consulted for management of pts acute hypercapnic respiratory failure and AMS. Pt had R thoracentesis done 08/31, pt was also intubated due to continued resp acidosis even on 100% FiO2 on Bipap. Pt is now weaned off of levophed, and dobutamine, still on precedex. Pt is now extubated and saturating well. Plan: Neuro: - AOx3 - Will wean off precedex drip Pulm: Acute hypercapnic resp failure leading to respiratory acidosis w/ chronic incomplete compensatory resp alkalosis: - Pt extubated - On BiPAP now due to episode of resp distress yesterday - Precedex drip will be titrated down - Likely 2/2 CHF exacerbation vs PNA vs mucous plug unlikely PE due to r/o by CTA - CXR: Worsening of L side effusion - read by me - Echo showed mildly imparied LV systolic dysfunction - BNP elevated - Abrams - Strict I/Os. Minimize positive fluid balance - Daily weight PNA vs CHF: - Procal elevated - CXR and echo resulted noted above - ID on board, recs appreciated: Merrem q8 and vanc day 6 of combination tx - Repeat blood, urine and sputum cultures Cardio: Shock: Septic vs cardiogenic: - Pt weaned off of levophed and dobutamine - Continue lasix for diuresis for suspected cardiogenic shock - s/p Thoracentesis 08/31: 1700ml out - decrease stress dose steroids to 50mg daily instead of Q12 - Goal is MAP > 65 Nephro: Pre-renal Azotemia: - BUN/Cr = 60/2.0 - UA, urine sodium, urine cl, urine osms, urine protein and serum osms ordered - Will cont to monitor - Will give lasix, now due to fluid overload and respiratory compromise but will limit other nephrotoxic agents - Nephro consulted, recs appreciated - Monitor I/Os, try to maintain negative fluid balance. GI: - CLD for diet - Protonix MSK: B/l foot cellulitis - MRSA (+): - continue multipodus boots - cultures growing MRSA - Continue IV Vanc. ID following - Pt is refusing MRI to r/o osteomyelitis ID: Stage 3 Sacral decub ulcer: - Pt refusing MRI - Santyl and local wound care - Cont Vancomycin per ID recs - Will discuss with ID to transition to oral abx in order to minimize positive fluid balance DVT PPx: Lovenox/Protonix Case seen, examined and discussed with attending physician, Dr. Jeanne Zimmerman PGY1 <Lynn Angel - Last Filed: 09/05/18 17:06> CCU Objective - Vital Signs / Intake & Output Intake and Output (Last 8hrs): Intake & Output 09/05/18 09/05/18 09/05/18 06:59 14:59 22:59 Intake Total 732 100 Output Total 800 Balance -68 100 Intake: IV 732 100 Right Internal Jugular 110 antibiotic 350 precedex 172 Output: Urine 800 2-way Urethral 800 Other: # Bowel Movements 0 - Medications Active Medications: Active Medications Generic Name Dose Route Start Last Admin Trade Name Freq PRN Reason Stop Dose Admin Acetaminophen 650 mg 08/24/18 00:04 09/03/18 13:54 Tylenol 325mg Tab PO 650 mg Q6 PRN Administration TEMP>=99.5F Acetaminophen 650 mg 08/24/18 00:04 Tylenol 650 Mg Supp RC Q6H PRN TEMP>=99.5F Acetylcysteine 4 ml 08/24/18 09:00 09/05/18 07:43 Acetylcysteine 20% IH 4 ml [id number] CASSY Administration Bisacodyl 10 mg 08/28/18 12:39 Dulcolax RC HS PRN Constipation Budesonide 0.5 mg 09/02/18 08:00 09/05/18 07:43 Pulmicort Respules IH 0.5 mg [id number] CASSY Administration Collagenase 0 gm 08/25/18 10:00 09/05/18 10:52 Santyl TOP 1 appl DAILY CASSY Administration Enoxaparin Sodium 40 mg 08/31/18 10:00 09/05/18 10:41 Lovenox SC 40 mg DAILY CASSY Administration Protocol Ergocalciferol 1 cap 08/26/18 15:00 09/02/18 15:26 Drisdol 50,000 Intl Units Cap PO 1 cap Q7D CASSY Administration Folic Acid 1 mg 08/26/18 15:00 09/05/18 10:43 Folic Acid PO 1 mg DAILY CASSY Administration Furosemide 40 mg 09/02/18 10:00 09/05/18 10:41 Lasix IVP 40 mg DAILY CASSY Administration Hydrocortisone Sodium Succinate 50 mg 09/05/18 10:00 09/05/18 10:42 Solu-Cortef IVP 50 mg DAILY CASSY Administration Linezolid 600 mg in 300 mls @ 200 mls/hr 08/31/18 10:00 09/05/18 10:41 Zyvox 600mg/300ml D5w IVPB 09/07/18 10:01 200 mls/hr Q12 CASSY Administration Protocol Dexmedetomidine HCl 400 mcg in 100 mls @ 3.856 mls/hr 08/31/18 16:50 09/05/18 10:39 Precedex 400mcg/100ml IV 0.8 mcg/kg/hr .Q24H PRN 15.422 mls/hr Sedation Administration Protocol 0.2 MCG/KG/HR Meropenem/Sodium Chloride 500 mg in 50 mls @ 100 mls/hr 09/03/18 10:00 09/05/18 10:43 Merrem Iv 500 Mg/Ns 50 Ml IVPB 09/08/18 10:01 100 mls/hr Q12 CASSY Administration Protocol Lactic Acid 0 ea 08/28/18 11:45 09/04/18 09:52 Lac-Hydrin 12% Cream (140 G) TOP 1 applic DAILY CASSY Administration Levalbuterol HCl 0.63 mg 09/04/18 20:00 09/05/18 13:21 Xopenex IH 0.63 mg [id number] CASSY Administration Metoprolol Tartrate 50 mg 08/30/18 09:00 08/31/18 10:03 Lopressor PO Not Given Q8H CASSY Morphine Sulfate 1 mg 09/03/18 15:46 09/05/18 06:09 Morphine IVP 1 mg Q4H PRN Administration Pain, severe (8-10) Mupirocin 0 gm 08/25/18 10:00 09/04/18 18:50 Bactroban Ointment TOP 1 appl BID CASSY Administration Nicotine 1 patch 08/24/18 10:00 09/05/18 10:42 Nicoderm Cq TD 1 patch DAILY CASSY Administration Nystatin 0 ea 09/03/18 18:00 09/05/18 10:53 Mycostatin Cream TOP 1 cre TID CASSY Administration Ondansetron HCl 4 mg 08/24/18 00:04 Zofran Inj IVP Q4H PRN Nausea/Vomiting Pantoprazole Sodium 40 mg 09/02/18 10:00 09/05/18 10:42 Protonix Inj IVP 40 mg DAILY CASSY Administration Polyethylene Glycol 17 gm 08/31/18 10:00 09/05/18 10:43 Miralax PO Not Given DAILY CASSY Sodium Hypochlorite 0 ml 09/01/18 13:00 09/05/18 10:51 Dakins Solution 0.25% TOP 1 applic DAILY CASSY Administration - Patient Studies Lab Studies: Microbiology Studies 08/30/18 12:50 Blood Culture - Final Blood-Venous NO GROWTH AFTER 5 DAYS Gram Stain - Final TEST NOT PERFORMED Lab Studies 09/05/18 09/05/18 09/05/18 Range/Units 06:30 06:15 06:15 WBC (4.5-11.0) 10^3/uL RBC (3.5-6.1) 10^6/uL Hgb (14.0-18.0) g/dL Hct (42.0-52.0) % MCV (80.0-105.0) fl MCH (25.0-35.0) pg MCHC (31.0-37.0) g/dl RDW (11.5-14.5) % Plt Count (120.0-450.0) 10^3/uL MPV (7.0-11.0) fl Neut % (Auto) (50.0-68.0) % Lymph % (Auto) (22.0-35.0) % [place] % (Auto) (1.0-6.0) % Eos % (Auto) (1.5-5.0) % Baso % (Auto) (0.0-3.0) % Lymph # (Auto) (1.2-3.4) [place] # (Auto) (0.1-0.6) Eos # (Auto) (0.0-0.7) Baso # (Auto) (0.0-2.0) K/mm3 Absolute Neuts (auto) (1.4-6.5) pCO2 49 H (35-45) mm/Hg pO2 109.0 H (80-100) mm/Hg HCO3 34.1 H (21-28) mmol/L ABG pH 7.45 (7.35-7.45) ABG Total CO2 35.6 H (22-28) mmol.L ABG O2 Saturation 99.2 H (95-98) % ABG O2 Content 13.1 L (15-23) ML/dl ABG Base Excess 9.0 H (-2.0-3.0) mmol/L ABG Hemoglobin 9.5 L (11.7-17.4) g/dL ABG Carboxyhemoglobin 1.4 (0.5-1.5) % POC ABG HHb (Measured) 0.8 (0-5) % ABG Methemoglobin 1.1 (0.0-3.0) % ABG O2 Capacity 13.2 L (16-24) mL/dl Hgb O2 Saturation 96.7 (95.0-98.0) % FiO2 100.0 % Sodium 137 (132-148) mmol/L Potassium 3.4 L (3.6-5.0) mmol/L Chloride 99 (98-107) mmol/L Carbon Dioxide 33 (21-33) mmol/L Anion Gap 8 L (10-20) BUN 60 H (7-21) mg/dL Creatinine 2.0 H (0.8-1.5) mg/dl Est GFR ( Amer) 40 Est GFR (Non-Af Amer) 33 Random Glucose 106 (70-110) mg/dL Calcium 7.9 L (8.4-10.5) mg/dL Phosphorus 5.0 H (2.5-4.5) mg/dL Magnesium 2.1 (1.7-2.2) mg/dL Total Bilirubin 0.8 (0.2-1.3) mg/dL Direct Bilirubin 0.7 H (0.0-0.4) mg/dL AST 27 (17-59) U/L ALT 19 (7-56) U/L Alkaline Phosphatase 66 (38-126) U/L NT-Pro-B Natriuret Pep 16424 H (0-450) pg/mL Total Protein 5.4 L (5.8-8.3) g/dL Albumin 2.2 L (3.0-4.8) g/dL Globulin 3.2 gm/dL Albumin/Globulin Ratio 0.7 L (1.1-1.8) 09/05/18 09/04/18 Range/Units 06:15 18:00 WBC 4.5 (4.5-11.0) 10^3/uL RBC 3.55 (3.5-6.1) 10^6/uL Hgb 9.7 L (14.0-18.0) g/dL Hct 31.6 L (42.0-52.0) % MCV 89.0 (80.0-105.0) fl MCH 27.3 (25.0-35.0) pg MCHC 30.7 L (31.0-37.0) g/dl RDW 14.6 H (11.5-14.5) % Plt Count 125 (120.0-450.0) 10^3/uL MPV 10.2 (7.0-11.0) fl Neut % (Auto) 63.9 (50.0-68.0) % Lymph % (Auto) 18.3 L (22.0-35.0) % [place] % (Auto) 10.8 H (1.0-6.0) % Eos % (Auto) 6.6 H (1.5-5.0) % Baso % (Auto) 0.4 (0.0-3.0) % Lymph # (Auto) 0.8 L (1.2-3.4) [place] # (Auto) 0.5 (0.1-0.6) Eos # (Auto) 0.3 (0.0-0.7) Baso # (Auto) 0.02 (0.0-2.0) K/mm3 Absolute Neuts (auto) 2.89 (1.4-6.5) pCO2 58 H (35-45) mm/Hg pO2 148.0 H (80-100) mm/Hg HCO3 33.5 H (21-28) mmol/L ABG pH 7.37 (7.35-7.45) ABG Total CO2 35.3 H (22-28) mmol.L ABG O2 Saturation 99.6 H (95-98) % ABG O2 Content 13.3 L (15-23) ML/dl ABG Base Excess 7.0 H (-2.0-3.0) mmol/L ABG Hemoglobin 9.5 L (11.7-17.4) g/dL ABG Carboxyhemoglobin 1.5 (0.5-1.5) % POC ABG HHb (Measured) 0.4 (0-5) % ABG Methemoglobin 1.0 (0.0-3.0) % ABG O2 Capacity 13.4 L (16-24) mL/dl Hgb O2 Saturation 97.1 (95.0-98.0) % FiO2 100.0 % Sodium (132-148) mmol/L Potassium (3.6-5.0) mmol/L Chloride (98-107) mmol/L Carbon Dioxide (21-33) mmol/L Anion Gap (10-20) BUN (7-21) mg/dL Creatinine (0.8-1.5) mg/dl Est GFR ( Amer) Est GFR (Non-Af Amer) Random Glucose (70-110) mg/dL Calcium (8.4-10.5) mg/dL Phosphorus (2.5-4.5) mg/dL Magnesium (1.7-2.2) mg/dL Total Bilirubin (0.2-1.3) mg/dL Direct Bilirubin (0.0-0.4) mg/dL AST (17-59) U/L ALT (7-56) U/L Alkaline Phosphatase (38-126) U/L NT-Pro-B Natriuret Pep (0-450) pg/mL Total Protein (5.8-8.3) g/dL Albumin (3.0-4.8) g/dL Globulin gm/dL Albumin/Globulin Ratio (1.1-1.8) Laboratory Results - last 24 hr 09/04/18 09/05/18 09/05/18 18:00 06:15 06:15 WBC 4.5 RBC 3.55 Hgb 9.7 L Hct 31.6 L MCV 89.0 MCH 27.3 MCHC 30.7 L RDW 14.6 H Plt Count 125 MPV 10.2 Neut % (Auto) 63.9 Lymph % (Auto) 18.3 L [place] % (Auto) 10.8 H Eos % (Auto) 6.6 H Baso % (Auto) 0.4 Lymph # (Auto) 0.8 L [place] # (Auto) 0.5 Eos # (Auto) 0.3 Baso # (Auto) 0.02 Absolute Neuts (auto) 2.89 pCO2 58 H pO2 148.0 H HCO3 33.5 H ABG pH 7.37 ABG Total CO2 35.3 H ABG O2 Saturation 99.6 H ABG O2 Content 13.3 L ABG Base Excess 7.0 H ABG Hemoglobin 9.5 L ABG Carboxyhemoglobin 1.5 POC ABG HHb (Measured) 0.4 ABG Methemoglobin 1.0 ABG O2 Capacity 13.4 L Hgb O2 Saturation 97.1 FiO2 100.0 Sodium 137 Potassium 3.4 L Chloride 99 Carbon Dioxide 33 Anion Gap 8 L BUN 60 H Creatinine 2.0 H Est GFR ( Amer) 40 Est GFR (Non-Af Amer) 33 Random Glucose 106 Calcium 7.9 L Phosphorus 5.0 H Magnesium 2.1 Total Bilirubin 0.8 Direct Bilirubin 0.7 H AST 27 ALT 19 Alkaline Phosphatase 66 NT-Pro-B Natriuret Pep Total Protein 5.4 L Albumin 2.2 L Globulin 3.2 Albumin/Globulin Ratio 0.7 L 09/05/18 09/05/18 06:15 06:30 WBC RBC Hgb Hct MCV MCH MCHC RDW Plt Count MPV Neut % (Auto) Lymph % (Auto) [place] % (Auto) Eos % (Auto) Baso % (Auto) Lymph # (Auto) [place] # (Auto) Eos # (Auto) Baso # (Auto) Absolute Neuts (auto) pCO2 49 H pO2 109.0 H HCO3 34.1 H ABG pH 7.45 ABG Total CO2 35.6 H ABG O2 Saturation 99.2 H ABG O2 Content 13.1 L ABG Base Excess 9.0 H ABG Hemoglobin 9.5 L ABG Carboxyhemoglobin 1.4 POC ABG HHb (Measured) 0.8 ABG Methemoglobin 1.1 ABG O2 Capacity 13.2 L Hgb O2 Saturation 96.7 FiO2 100.0 Sodium Potassium Chloride Carbon Dioxide Anion Gap BUN Creatinine Est GFR ( Amer) Est GFR (Non-Af Amer) Random Glucose Calcium Phosphorus Magnesium Total Bilirubin Direct Bilirubin AST ALT Alkaline Phosphatase NT-Pro-B Natriuret Pep 56798 H Total Protein Albumin Globulin Albumin/Globulin Ratio Radiology Impressions: Radiology Impressions Chest X-Ray 09/04/18 12:50 IMPRESSION: Slightly limited study due to patient rotation to the left side. Near complete opacification left hemithorax consistent with some combination of large effusion atelectasis and/or infiltrate. Right lower lobe of opacity likely also representing atelectasis and or infiltrate with small right-sided effusion. Underlying pulmonary venous congestive changes also felt present. Chest X-Ray 09/05/18 06:00 IMPRESSION: Complete opacification left hemithorax large right-sided effusion and right lower lobe atelectasis and or infiltrate. There also appears to be some mild central pulmonary vascular congestive changes seen in the right lung Critical Care Progress Note - Nutrition Nutrition: Nutrition Category Date Time Status Liquid Diet [DIET] Diets 09/03/18 Dinner Ordered Addendum Addendum: 09/05/18 17:03 ICU Attending Addendum Patient seen and examined. Case reviewed on round with housestaff. Agree with resident note above with the following additions/exceptions 68M with hx of pmhx of chronic back pain and vertebral disc disease who admitted initially for b/l foot pain and back pain was being tx for foot infection however became progressively hypoxic with worsening bl effusions s/p intubation and right thoracentesis of 1800 transudate He is in shock unclear however likely cardiogenic vs septic. The BL nature of his effusions is consistent with cardiogenic however his LV function is not significantly low. he has more right heart failure weaned off dobutamine extubated 09/03 Today has left lung white out, likely mix of pleural effusion and mucus plug patient not requiring more oxygen no role for bronch until 48 hours of aggressive chest PT and nebs would also have to inubtate for bronch, holding off at the moment abx as per ID would try and de-escalate if possible cont lasix did well with urine output with BID dosing yesterday will liekly give another PM dose this afternoon cont Bipap cont nebs around the clock and steroids Rest of care as above in housestaff note Lynn Angel MD Pulmonary Critical Care Attending
[2018-09-05] MEDS: Ammonium Lactate 12% Cream (140 g) TOP SCH (10:00)
[2018-09-05] MEDS: Mupirocin 2% Ointment 15 GM TUBE TOP SCH ×2 (10:00→18:08)
[2018-09-05] MEDS: Linezolid 600 mg in D5W 300 ml 600 MG/300 ML BAG IVPB SCH ×2 (10:41→22:30)
[2018-09-05] MEDS: Enoxaparin 40 mg Syringe SC SCH (10:41)
[2018-09-05] MEDS: POLYETHYLENE GLYCOL 3350 17 GM/Dose PACKET PO SCH (10:43)
[2018-09-05] MEDS: MEROPENEM 500 MG in NS 500 MG/50 ML BAG IVPB SCH ×2 (10:43→21:00)
[2018-09-05] MEDS: Dakin's Topical 0.25%-Half Strength (480 ml) TOP SCH (10:51)
[2018-09-05] MEDS: Collagenase 250 Units/gm Ointment(30 gm) TOP SCH (10:52)
[2018-09-05] MEDS: Nystatin 100,000 Units/gm Cream(15 gm) TOP SCH ×3 (10:53→18:15)
--- NOTE | 2018-09-05 11:13 | CP.PCM.PN ---
Subjective - Date & Time of Evaluation Date of Evaluation: 09/05/18 Time of Evaluation: 10:50 - Subjective Subjective: Patient is on a BiPAP, refusing to be examined properly, no fevers overnight. Objective - Vital Signs/Intake and Output Vital Signs (last 24 hours): Temp Pulse Resp BP Pulse Ox 94.8 F L 73 13 112/50 L 93 L 09/04/18 02:10 09/04/18 10:00 09/04/18 02:10 09/04/18 09:43 09/04/18 02:10 Intake and Output: 09/04/18 09/04/18 06:59 18:59 Intake Total 100 Balance 100 - Medications Medications: Current Medications Acetaminophen (Tylenol 325mg Tab) 650 mg PO Q6 PRN PRN Reason: TEMP>=99.5F Last Admin: 09/03/18 13:54 Dose: 650 mg Acetaminophen (Tylenol 650 Mg Supp) 650 mg RC Q6H PRN PRN Reason: TEMP>=99.5F Acetylcysteine (Acetylcysteine 20%) 4 ml IH [id number] [facility] Last Admin: 09/04/18 07:48 Dose: 4 ml Bisacodyl (Dulcolax) 10 mg RC HS PRN PRN Reason: Constipation Budesonide (Pulmicort Respules) 0.5 mg IH [id number] [facility] Last Admin: 09/04/18 07:48 Dose: 0.5 mg Collagenase (Santyl) 0 gm TOP DAILY [facility] Last Admin: 09/03/18 09:15 Dose: 1 appl Enoxaparin Sodium (Lovenox) 40 mg SC DAILY [facility]; Protocol Last Admin: 09/04/18 09:42 Dose: 40 mg Ergocalciferol (Drisdol 50,000 Intl Units Cap) 1 cap PO Q7D [facility] Last Admin: 09/02/18 15:26 Dose: 1 cap Folic Acid (Folic Acid) 1 mg PO DAILY [facility] Last Admin: 09/04/18 09:56 Dose: 1 mg Furosemide (Lasix) 40 mg IVP DAILY [facility] Last Admin: 09/04/18 09:43 Dose: 40 mg Hydrocortisone Sodium Succinate (Solu-Cortef) 50 mg IVP Q12 [facility] Last Admin: 09/04/18 09:44 Dose: 50 mg Linezolid (Zyvox 600mg/300ml D5w) 600 mg in 300 mls @ 200 mls/hr IVPB Q12 [facility]; Protocol Stop: 09/07/18 10:01 Last Admin: 09/04/18 09:42 Dose: 200 mls/hr Dexmedetomidine HCl (Precedex 400mcg/100ml) 400 mcg in 100 mls @ 3.856 mls/hr IV .Q24H PRN; Protocol PRN Reason: Sedation Last Admin: 09/04/18 08:20 Dose: 0.8 mcg/kg/hr, 15.422 mls/hr Dobutamine HCl/Dextrose (Dobutamine/Dextrose 5% 500mg/250ml) 500 mg in 250 mls @ 5.783 mls/hr IV .Q24H PRN; Protocol PRN Reason: TITRATE PER PROTOCOL Last Titration: 09/03/18 18:00 Dose: 0 mcg/kg/min, 0 mls/hr Meropenem/Sodium Chloride (Merrem Iv 500 Mg/Ns 50 Ml) 500 mg in 50 mls @ 100 ml s/hr IVPB Q12 [facility]; Protocol Stop: 09/08/18 10:01 Last Admin: 09/04/18 09:38 Dose: 100 mls/hr Lactic Acid (Lac-Hydrin 12% Cream (140 G)) 0 ea TOP DAILY [facility] Last Admin: 09/04/18 09:52 Dose: 1 applic Levalbuterol HCl (Xopenex) 0.63 mg IH [id number] [facility] Last Admin: 09/04/18 07:48 Dose: 0.63 mg Metoprolol Tartrate (Lopressor) 50 mg PO Q8H [facility] Last Admin: 08/31/18 10:03 Dose: Not Given Morphine Sulfate (Morphine) 1 mg IVP Q4H PRN PRN Reason: Pain, severe (8-10) Mupirocin (Bactroban Ointment) 0 gm TOP BID [facility] Last Admin: 09/04/18 09:46 Dose: 1 appl Nicotine (Nicoderm Cq) 1 patch TD DAILY [facility] Last Admin: 09/04/18 09:44 Dose: 1 patch Nystatin (Mycostatin Cream) 0 ea TOP TID [facility] Ondansetron HCl (Zofran Inj) 4 mg IVP Q4H PRN PRN Reason: Nausea/Vomiting Pantoprazole Sodium (Protonix Inj) 40 mg IVP DAILY [facility] Last Admin: 09/04/18 09:42 Dose: 40 mg Polyethylene Glycol (Miralax) 17 gm PO DAILY [facility] Last Admin: 09/04/18 09:45 Dose: Not Given Sodium Hypochlorite (Dakins Solution 0.25%) 0 ml TOP DAILY [facility] Last Admin: 09/04/18 09:53 Dose: 1 applic - Labs Labs: 09/04/18 06:30 09/04/18 06:30 PT 15.1 SECONDS (9.4-12.5) H 08/23/18 22:20 INR 1.36 08/23/18 22:20 APTT 27.9 Seconds (26.9-38.3) 08/23/18 22:20 - Constitutional Appears: Chronically Ill - Head Exam Head Exam: NORMAL INSPECTION - Respiratory Exam Respiratory Exam: Decreased Breath Sounds - Cardiovascular Exam Cardiovascular Exam: +S1, +S2 - GI/Abdominal Exam GI & Abdominal Exam: Soft. absent: Tenderness Assessment and Plan - Assessment and Plan (Free Text) Plan: Assessment severe sepsis / S/P shock S/P ventilator-dependent respiratory failure and acute renal failure due to probable right lower lobe hospital-acquired pneumonia, with bilateral pleural effusions S/P right sided thoracentesis, slowly improving Infected left lower extremity wounds, R/O osteomyelitis, grew MRSA chronic back pain vertebral disc disease venous stasis dermatitis Plan continue Zyvox and will also continue Merrem (day 7 of combination) - repeat blood cx negative, PCT is 0.61 - Zyvox will also cover the MRSA in the foot - target up to 7 days of antibiotics awaiting MRI of the foot but patient is critically ill currently patient had thoracentesis on the right and fluid looks to be transudative - reviewed CXR today with decreased left sided pleural effusion discussed with Dr. Lloyd - no surgery for the foot for now will continue to monitor clinically overall prognosis is poor
--- NOTE | 2018-09-05 13:56 | RAD ---
Date of service: 09/05/2018 HISTORY: f/u COMPARISON: No prior. FINDINGS: No change right IJ central line with tip in the SVC LUNGS: Complete opacification left hemithorax large right-sided effusion and right lower lobe atelectasis and or infiltrate. There also appears to be some mild central pulmonary vascular congestive changes seen in the right lung PLEURA: No significant pleural effusion identified, no pneumothorax apparent. CARDIOVASCULAR: No aortic atherosclerotic calcification present. Normal cardiac size. No pulmonary vascular congestion. OSSEOUS STRUCTURES: No significant abnormalities. VISUALIZED UPPER ABDOMEN: Normal. OTHER FINDINGS: None. IMPRESSION: Complete opacification left hemithorax large right-sided effusion and right lower lobe atelectasis and or infiltrate. There also appears to be some mild central pulmonary vascular congestive changes seen in the right lung
--- NOTE | 2018-09-05 14:15 | PN ---
DATE: 09/05/2018 PULMONARY PROGRESS NOTE SUBJECTIVE: The patient remains on BiPAP this morning. Discussed with the cover seamer and RN in charge. No significant changes are noted. Clinical condition is essentially unchanged at this time. PHYSICAL EXAMINATION: VITALS SIGNS: Show heart rate of 88, respiratory rate of 20, blood pressure 140/64. HEENT: Normocephalic, atraumatic. NECK: Jugular venous distention is present. There is no bruit or mass. HEART: Cardiovascular, regular rhythm. S1 and S2. S3 gallop persists. There is a systolic ejection murmur at the lower left sternal border, unchanged. CHEST: Bilateral rales and rhonchi persist. There is no wheezing at this time. ABDOMEN: Soft. Bowel sounds normoactive without mass, guarding, rebound or organomegaly. EXTREMITIES: Reveal no clubbing, cyanosis or edema. There is no Homans' sign. NEUROLOGICAL: Evaluation is difficult to assess at this time. IMAGING STUDIES: Chest x-ray done this morning shows no significant change with pulmonary vascular congestion and associated effusions. CLINICAL IMPRESSION: 1. Respiratory failure. 2. Congestive heart failure. 3. Bilateral pleural effusions. 4. Compressive atelectasis. 5. Probable right lower lobe pneumonia. 6. Chronic obstructive pulmonary disease. PLAN: Continue with BiPAP at this time. Continue inhaled bronchodilators, corticosteroids, and other medications per cover seamer. The patient continues to require antibiotics and diuretics. We will follow closely with you in an attempt to wean from mechanical ventilation or BiPAP as permitted. Close followup is essential. Carloz Suarez MD
--- NOTE | 2018-09-05 14:32 | PN ---
DATE: 09/05/2018 COVERING FOR: Jero Salamanca MD. SUBJECTIVE: The patient is currently on a Ventimask and he has a warming blanket for hypothermia. He denies chest pain. PHYSICAL EXAMINATION: VITAL SIGNS: Blood pressure 127/47, heart rate 55, temperature 95.4, respiration 17. HEENT: Pale conjunctiva. CHEST: Absent breath sounds over the right base. HEART: S1, S2. Regular. ABDOMEN: Soft. EXTREMITIES: Bilateral leg cellulitis. LABORATORY DATA: Hemoglobin and hematocrit 9.7 and 31.6. White count and platelet count all within normal limits. Today's SMA-7: Sodium 137, potassium 3.4, chloride 99, CO2 33, glucose 106, BUN 60, creatinine 2. Today's chest x-ray reveals complete opacification of the left lung and right lower lobe infiltrate. ASSESSMENT: 1. Status post respiratory failure. 2. Pneumonia. 3. Bilateral leg cellulitis. 4. Infected sacral decubitus. 5. Pbyejyai-ip-kzlscl pulmonary hypertension. 6. Large left pleural effusion status post right thoracocentesis on 08/31/2018. RECOMMENDATIONS: Continue current Lasix 40 mg . Continue subcutaneous Lovenox at 40 mg once a day, Solu-Cortef at 50 mg intravenously daily, Zyvox 600 mg intravenously every 12 hours. Consider repeat chest CT scan to evaluate the severity of the left sided pneumonia and any concomitant pleural effusion. Jayy Zapata MD
[2018-09-06] MEDS: Dexmedetomidine 400mcg/100mL 400 MCG/100 ML BOTTLE IV PRN ×2 (06:33→21:12)
[2018-09-06 06:46] LABS: ARTERIAL BLOOD GAS HCO3 33.5 mmol/L (21-28); ARTERIAL BLOOD GAS O2 CAPACITY 13.7 mL/dl (16-24); ARTERIAL BLOOD GAS O2 CONTENT 13.3 ML/dl (15-23); ARTERIAL BLOOD GAS O2 SAT 97.1 % (95-98); ARTERIAL BLOOD GAS PCO2 45 mm/Hg (35-45); ARTERIAL BLOOD GAS PH 7.48 (7.35-7.45); ARTERIAL BLOOD GAS TCO2 34.9 mmol.L (22-28)
[2018-09-06 06:58] LABS: BASO # 0.01 K/mm3 (0.0-2.0); BASO % 0.1 % (0.0-3.0); EOS # 0.6 (0.0-0.7); EOS % 7.9 % (1.5-5.0); HEMOGLOBIN 10.3 g/dL (14.0-18.0); LYMPH # 0.9 (1.2-3.4); MEAN CELL VOLUME 88.6 fl (80.0-105.0); MEAN CORPUSCULAR HEMOGLOBIN 26.8 pg (25.0-35.0); MEAN CORPUSCULAR HGB CONC 30.2 g/dl (31.0-37.0); MEAN PLATELET VOLUME 10.4 fl (7.0-11.0); MONO # 0.9 (0.1-0.6); MONO % 13.2 % (1.0-6.0); RBC 3.85 10^6/uL (3.5-6.1); RED CELL DISTRIBUTION WIDTH 14.9 % (11.5-14.5); WHITE BLOOD COUNT 7.1 10^3/uL (4.5-11.0)
[2018-09-06 07:18] LABS: ALB/GLOB RATIO 0.6 (1.1-1.8); ALBUMIN 2.2 g/dL (3.0-4.8); BILIRUBIN,DIRECT 0.7 mg/dL (0.0-0.4)
--- NOTE | 2018-09-06 07:55 | PN ---
DATE: 09/06/2018([id number]) PULMONARY NOTE SUBJECTIVE: The patient is mildly to moderately short of breath this morning. He is in no acute distress. PHYSICAL EXAMINATION: VITAL SIGNS: Temperature is 97, pulse is 108, respiratory rate 24/26, blood pressure 155/79. Oxygen saturation on BiPap is 92%. HEENT: Normocephalic, atraumatic. No JVD. CARDIOVASCULAR: Systolic ejection murmur at the lower left sternal border. Positive S3 gallop. LUNGS: Decreased breath sounds - left lung. Minimal bilateral rhonchi. No wheezing. GI: Abdomen is soft, nontender and nondistended. Bowel sounds are positive. EXTREMITIES: Minimal edema. No cyanosis, no clubbing. Calves are nontender to palpation. SKIN: Positive decubitus ulcers. Bilateral lower extremity ulcers. NEUROLOGIC: Exam limited at the present time. PERTINENT LABORATORY DATA: Chest x-ray was done this morning and reviewed. There is complete opacification of the left lung with an ipsilateral tracheal shift - consistent with atelectasis. Official results are pending. Arterial blood gas was done on BiPap with 100% oxygen. Results are: PH 7.48, pCO2 of 45, pO2 of 72. IMPRESSION: 1. Respiratory failure. 2. Recurrent atelectasis - left lung. 3. Congestive heart failure. 4. Bilateral pleural effusions. 5. Possible right lower lobe pneumonia. 6. Chronic obstructive pulmonary disease. 7. Renal insufficiency. PLAN: The patient is currently mildly to moderately short of breath. He is in no acute distress. I did discuss the case with the night nurse at length. The night nurse stated the patient had a fairly uneventful night. I did review the chest x-ray as above. Findings are noted. The chest x-ray is consistent with significant atelectasis and an ipsilateral tracheal shift. I have also reviewed the arterial blood gas. There is a significant/increasing alveolar-arterial gradient noted. I did discuss the case with Dr. Angel (digital learning platforms manager) at length. Plan will be to intubate the patient and proceed with bronchoscopy. The patient also has a history of left lung atelectasis last week. Dr. Angel and the patient fully agree with proceeding with bronchoscopy. On physical exam, there is no significant bronchospasm noted. In addition, there is no wheezing noted. I will continue with the current nebulizer treatments and inhaled steroids for now. The patient remains on antibiotic therapy - as per Infectious Disease. Input by Dr. Kelley is noted. There are no temperatures noted. The leukocytosis has fully resolved. Input by Cardiology is also noted. The patient remains on Lasix. The patient remains critically ill with very guarded prognosis. Again, I did discuss the above with the ICU team at length. I will also discuss the above with the attending physician later this morning. Mike Mahmood MD MTDD
[2018-09-06] MEDS: Budesonide 0.5 mg/2 ml Inhal Susp UD IH SCH ×2 (08:11→20:40)
[2018-09-06] MEDS: Levalbuterol 0.63 MG/3 ML Inhal Soln UD IH SCH ×3 (08:11→20:40)
[2018-09-06] MEDS: Acetylcysteine 20% Inhal Soln (4ml) IH SCH ×3 (08:11→20:40)
--- NOTE | 2018-09-06 08:36 | CP.PCM.PN ---
Subjective - Date & Time of Evaluation Date of Evaluation: 09/06/18 Time of Evaluation: 08:35 - Subjective Subjective: PGY-[address] Hernandez Requiring Bipap. easily awaken on precedex gtt. state family visited over the weekend Objective - Vital Signs/Intake and Output Vital Signs (last 24 hours): Temp Pulse Resp BP Pulse Ox 97.9 F 86 17 123/55 L 100 09/06/18 08:00 09/06/18 08:00 09/06/18 08:00 09/06/18 08:00 09/06/18 08:00 Intake and Output: 09/06/18 09/06/18 06:59 18:59 Intake Total 188 Output Total 800 Balance -612 - Medications Medications: Current Medications Acetaminophen (Tylenol 325mg Tab) 650 mg PO Q6 PRN PRN Reason: TEMP>=99.5F Last Admin: 09/03/18 13:54 Dose: 650 mg Acetaminophen (Tylenol 650 Mg Supp) 650 mg RC Q6H PRN PRN Reason: TEMP>=99.5F Acetylcysteine (Acetylcysteine 20%) 4 ml IH [id number] [facility] Last Admin: 09/06/18 08:11 Dose: 4 ml Bisacodyl (Dulcolax) 10 mg RC HS PRN PRN Reason: Constipation Budesonide (Pulmicort Respules) 0.5 mg IH [id number] [facility] Last Admin: 09/06/18 08:11 Dose: 0.5 mg Collagenase (Santyl) 0 gm TOP DAILY [facility] Last Admin: 09/05/18 10:52 Dose: 1 appl Enoxaparin Sodium (Lovenox) 40 mg SC DAILY [facility]; Protocol Last Admin: 09/05/18 10:41 Dose: 40 mg Ergocalciferol (Drisdol 50,000 Intl Units Cap) 1 cap PO Q7D [facility] Last Admin: 09/02/18 15:26 Dose: 1 cap Folic Acid (Folic Acid) 1 mg PO DAILY [facility] Last Admin: 09/05/18 10:43 Dose: 1 mg Furosemide (Lasix) 40 mg IVP DAILY [facility] Last Admin: 09/05/18 10:41 Dose: 40 mg Hydrocortisone Sodium Succinate (Solu-Cortef) 50 mg IVP DAILY [facility] Last Admin: 09/05/18 10:42 Dose: 50 mg Linezolid (Zyvox 600mg/300ml D5w) 600 mg in 300 mls @ 200 mls/hr IVPB Q12 [facility]; Protocol Stop: 09/07/18 10:01 Last Admin: 09/05/18 22:30 Dose: 200 mls/hr Dexmedetomidine HCl (Precedex 400mcg/100ml) 400 mcg in 100 mls @ 3.856 mls/hr IV .Q24H PRN; Protocol PRN Reason: Sedation Last Admin: 09/06/18 06:33 Dose: 0.8 mcg/kg/hr, 15.422 mls/hr Meropenem/Sodium Chloride (Merrem Iv 500 Mg/Ns 50 Ml) 500 mg in 50 mls @ 100 mls/hr IVPB Q12 [facility]; Protocol Stop: 09/08/18 10:01 Last Admin: 09/05/18 21:00 Dose: 100 mls/hr Potassium Chloride (Potassium Chloride 20 Meq/100 Ml) 20 meq in 100 mls @ 50 mls/hr IVPB Q2H [facility] Stop: 09/06/18 11:59 Lactic Acid (Lac-Hydrin 12% Cream (140 G)) 0 ea TOP DAILY [facility] Last Admin: 09/05/18 10:00 Dose: 1 applic Levalbuterol HCl (Xopenex) 0.63 mg IH [id number] [facility] Last Admin: 09/06/18 08:11 Dose: 0.63 mg Metoprolol Tartrate (Lopressor) 50 mg PO Q8H [facility] Last Admin: 08/31/18 10:03 Dose: Not Given Morphine Sulfate (Morphine) 1 mg IVP Q4H PRN PRN Reason: Pain, severe (8-10) Last Admin: 09/05/18 06:09 Dose: 1 mg Mupirocin (Bactroban Ointment) 0 gm TOP BID [facility] Last Admin: 09/05/18 18:08 Dose: 1 appl Nicotine (Nicoderm Cq) 1 patch TD DAILY [facility] Last Admin: 09/05/18 10:42 Dose: 1 patch Nystatin (Mycostatin Cream) 0 ea TOP TID [facility] Last Admin: 09/05/18 18:15 Dose: 1 cre Ondansetron HCl (Zofran Inj) 4 mg IVP Q4H PRN PRN Reason: Nausea/Vomiting Pantoprazole Sodium (Protonix Inj) 40 mg IVP DAILY [facility] Last Admin: 09/05/18 10:42 Dose: 40 mg Polyethylene Glycol (Miralax) 17 gm PO DAILY [facility] Last Admin: 09/05/18 10:43 Dose: Not Given Sodium Hypochlorite (Dakins Solution 0.25%) 0 ml TOP DAILY [facility] Last Admin: 09/05/18 10:51 Dose: 1 applic - Labs Labs: 09/06/18 06:19 09/06/18 06:19 PT 15.1 SECONDS (9.4-12.5) H 08/23/18 22:20 INR 1.36 08/23/18 22:20 APTT 27.9 Seconds (26.9-38.3) 08/23/18 22:20 - Constitutional Appears: No Acute Distress (on bipap) - Head Exam Head Exam: ATRAUMATIC, NORMAL INSPECTION, NORMOCEPHALIC - Eye Exam Eye Exam: EOMI, Normal appearance, PERRL. absent: Scleral icterus Pupil Exam: NORMAL ACCOMODATION - ENT Exam ENT Exam: Mucous Membranes Moist - Neck Exam Additional comments: Mild JVD - Respiratory Exam Respiratory Exam: Prolonged Expiratory Phase Additional comments: No BS on L - Cardiovascular Exam Cardiovascular Exam: REGULAR RHYTHM, +S1, +S2. absent: Murmur - GI/Abdominal Exam GI & Abdominal Exam: Soft, Normal Bowel Sounds. absent: Tenderness - Extremities Exam Extremities Exam: absent: Calf Tenderness Additional comments: dressing d/c/i - Neurological Exam Additional comments: easily awaken on precedex - Psychiatric Exam Psychiatric exam: Normal Affect, Normal Mood - Skin Skin Exam: Dry, Warm Assessment and Plan - Assessment and Plan (Free Text) Plan: Mr Dodd, 68M, with PMhx penicillin allergy, chronic back pain and vertebral disc disease admitted for b/l foot cellulitis r/o osteomyelitis and L thigh decubitus. During the hospital stay, he developes hypoxemic hypercapnic respiratory distress requiring high flow and BIPAP. He deveople acute CHF complicated by large b/l pleural effusion and suspected pneumonia with sepsis and high procalcitonin. He refused thoracentesis (08/30) He is upgraded to ICU on 07/10 for AMS with increased lethargy and low BP. He was in shock, sepsis vs cardiogenic, on levophed/vasopressin/stress steroid, now off these pressors, but continued on dobutamin gtt. He had oliguria and FRANCES from low BP. As for pulm, he received thoracentesis by bedside (08/31) 1700cc drained from R side, flores sudative. He was intubated on 08/31 for Hypercapnic hypoxemic respiratory distress. L lung white out and Venous congestion slowly improved on lasix. He is extubated on 09/03 to 5L NC. On 09/04, he was weaned of dobutamin gtt. On 09/05, his L lung is white out again, in respiratory distress, requiring BIPAP. On 09/06, he is intubated for bronchoscopy. Mucus plug was obtained and CXR showed improvement in BRENNAN areation. Post-procedure, he was hypotensive due to propofol and required about 30 mins of levophed and hypotension resolved. Hypoxemic respiratory distress left hemithorax opacification due to mucus plugging and pleural effusion, s/p bedside bronchoscopy (POD #0) - patient not requiring more oxygen - aggressive chest PT and nebs Shock, septic vs cardiogranic - Had rule out obstructive from PE (negative CTA- chest) Possible Septic shock due to HAP with b/l foot cellulitis which grew MRSA. PLUS multiple decubitus ulcers - Linezolid/Merem (day 8) s/p vancomycin s/p tapering solucortef - SRINIVAS was only mildly abnormal at rest, possible PAD. - For sacral decubitus stage 3, L thigh, he is on santyl and local wound care. No osteomyelitis - pt refuses foot MRI to r/o osteomyelitis. ESR 105 CHF, b/l pleural effusion large, s/p R thoracentesis Transudative plueral effusion RBBB (questionable new onset vs chronic) with prolong Qtc 496 Right Heart failure s/p dobutamin gtt - Echo (08/31): EF 50s (on pressor). RVSP 62. RV hypokinetic/dilated - Questionable RHF - Hold beta lisa due to acute heart failure FRANCES, likely ATN from hypoperfusion/low BP - strict i/o. trend cre/bun He is anemic with Hb 8.4 on 08/25. He got 1u pRBC, s/p 5 days of Fe IV For anxiety, he is on ativan PRN. Currently on precedex gtt For tobacco addition, counseled for cessation/on nicoderm Prophylaxis - protonix, heparin dispo plan: PT recommends MARICRUZ. [ ] Antibiotics. [ ] cytology from pleural effusion [ ] Pending daughter contact info s/r/d/w Dr Hernandez
--- NOTE | 2018-09-06 08:45 | CP.PCM.PN ---
Subjective - Date & Time of Evaluation Date of Evaluation: 09/06/18 Time of Evaluation: 08:41 - Subjective Subjective: renal note on bipap no complaint labs reviewed cxr reviewed vitals reviewed gen: nad sclera: anicteric op: clear, on bipap neck: supple cv: +S1+s2 lungs: coarse bs b/l abds: soft nt nd no organomegaly ext: trace edema neuro: follows commands no focal deficit psych: flat skin:dressing on b/l le IMP/PLAN: FRANCES/ATN/CHF/sepsis syndrome/acute resp failure/hyponatremia / hypokalemia frances likely 2/2 to shock/atn. Cr stable, remains oliguric. Continue supportive measures. hco3 trending up - possible contraction alkalosis - has significant thrid spacing from hypoalbuminemia. if continues to go up would consider hold lasix for 24 hours or so. when stable please check renal US replete k na stable Objective - Vital Signs/Intake and Output Vital Signs (last 24 hours): Temp Pulse Resp BP Pulse Ox 97.9 F 86 17 123/55 L 100 09/06/18 08:00 09/06/18 08:00 09/06/18 08:00 09/06/18 08:00 09/06/18 08:00 Intake and Output: 09/06/18 09/06/18 06:59 18:59 Intake Total 188 Output Total 800 Balance -612 - Medications Medications: Current Medications Acetaminophen (Tylenol 325mg Tab) 650 mg PO Q6 PRN PRN Reason: TEMP>=99.5F Last Admin: 09/03/18 13:54 Dose: 650 mg Acetaminophen (Tylenol 650 Mg Supp) 650 mg RC Q6H PRN PRN Reason: TEMP>=99.5F Acetylcysteine (Acetylcysteine 20%) 4 ml IH [id number] [facility] Last Admin: 09/06/18 08:11 Dose: 4 ml Bisacodyl (Dulcolax) 10 mg RC HS PRN PRN Reason: Constipation Budesonide (Pulmicort Respules) 0.5 mg IH [id number] [facility] Last Admin: 09/06/18 08:11 Dose: 0.5 mg Collagenase (Santyl) 0 gm TOP DAILY [facility] Last Admin: 09/05/18 10:52 Dose: 1 appl Enoxaparin Sodium (Lovenox) 40 mg SC DAILY [facility]; Protocol Last Admin: 09/05/18 10:41 Dose: 40 mg Ergocalciferol (Drisdol 50,000 Intl Units Cap) 1 cap PO Q7D [facility] Last Admin: 09/02/18 15:26 Dose: 1 cap Folic Acid (Folic Acid) 1 mg PO DAILY [facility] Last Admin: 09/05/18 10:43 Dose: 1 mg Furosemide (Lasix) 40 mg IVP DAILY [facility] Last Admin: 09/05/18 10:41 Dose: 40 mg Hydrocortisone Sodium Succinate (Solu-Cortef) 50 mg IVP DAILY [facility] Last Admin: 09/05/18 10:42 Dose: 50 mg Linezolid (Zyvox 600mg/300ml D5w) 600 mg in 300 mls @ 200 mls/hr IVPB Q12 [facility]; Protocol Stop: 09/07/18 10:01 Last Admin: 09/05/18 22:30 Dose: 200 mls/hr Dexmedetomidine HCl (Precedex 400mcg/100ml) 400 mcg in 100 mls @ 3.856 mls/hr IV .Q24H PRN; Protocol PRN Reason: Sedation Last Admin: 09/06/18 06:33 Dose: 0.8 mcg/kg/hr, 15.422 mls/hr Meropenem/Sodium Chloride (Merrem Iv 500 Mg/Ns 50 Ml) 500 mg in 50 mls @ 100 mls/hr IVPB Q12 [facility]; Protocol Stop: 09/08/18 10:01 Last Admin: 09/05/18 21:00 Dose: 100 mls/hr Potassium Chloride (Potassium Chloride 20 Meq/100 Ml) 20 meq in 100 mls @ 50 mls/hr IVPB Q2H [facility] Stop: 09/06/18 11:59 Lactic Acid (Lac-Hydrin 12% Cream (140 G)) 0 ea TOP DAILY [facility] Last Admin: 09/05/18 10:00 Dose: 1 applic Levalbuterol HCl (Xopenex) 0.63 mg IH [id number] [facility] Last Admin: 09/06/18 08:11 Dose: 0.63 mg Metoprolol Tartrate (Lopressor) 50 mg PO Q8H [facility] Last Admin: 08/31/18 10:03 Dose: Not Given Morphine Sulfate (Morphine) 1 mg IVP Q4H PRN PRN Reason: Pain, severe (8-10) Last Admin: 09/05/18 06:09 Dose: 1 mg Mupirocin (Bactroban Ointment) 0 gm TOP BID [facility] Last Admin: 09/05/18 18:08 Dose: 1 appl Nicotine (Nicoderm Cq) 1 patch TD DAILY [facility] Last Admin: 09/05/18 10:42 Dose: 1 patch Nystatin (Mycostatin Cream) 0 ea TOP TID [facility] Last Admin: 09/05/18 18:15 Dose: 1 cre Ondansetron HCl (Zofran Inj) 4 mg IVP Q4H PRN PRN Reason: Nausea/Vomiting Pantoprazole Sodium (Protonix Inj) 40 mg IVP DAILY [facility] Last Admin: 09/05/18 10:42 Dose: 40 mg Polyethylene Glycol (Miralax) 17 gm PO DAILY [facility] Last Admin: 09/05/18 10:43 Dose: Not Given Sodium Hypochlorite (Dakins Solution 0.25%) 0 ml TOP DAILY [facility] Last Admin: 09/05/18 10:51 Dose: 1 applic - Labs Labs: 09/06/18 06:19 09/06/18 06:19 PT 15.1 SECONDS (9.4-12.5) H 08/23/18 22:20 INR 1.36 08/23/18 22:20 APTT 27.9 Seconds (26.9-38.3) 08/23/18 22:20
--- NOTE | 2018-09-06 08:53 | PN ---
DATE: 09/05/2018 SUBJECTIVE: The patient is seen in ICU bed 4. The patient is on BiPAP with respiratory rate of 16 and 5/15. FIO2 is 100%. The patient is seen lying in the bed. Overnight nurse's notes were reviewed. The patient is still hypothermic with a temperature around 95 to 96 degrees Fahrenheit. Telemetry shows sinus rhythm. Heart rate in 60s, 70s, the high 50s. Average blood pressure in the last 24 hours systolic blood pressure has been around high and low 120s. Diastolic blood pressure around 50s. Respiratory rate 17 to 22, O2 sat is 100% on BiPAP setting as mentioned above. Oxygen delivery is on BiPAP. OBJECTIVE: HEENT: Head; normocephalic and atraumatic. HEENT examination shows positive BiPAP. Pinkish pale conjunctivae. Anicteric sclerae. No oropharyngeal lesion. NECK: No neck rigidity. CHEST: Kyphosis. LUNGS: Shows decreased breath sounds, left more than the right. Positive rhonchi upper lung redman. CARDIOVASCULAR: S1 and S2, regular rhythm. Positive systolic murmur left sternal border, right second intercostal space, left second intercostal space. ABDOMEN: Soft. Positive bowel sounds. No palpable hepatosplenomegaly. GENITALIA: Male. Positive Abrams catheter. EXTREMITIES: Positive Multi Podus boot. Decreasing and resolving lymphedema of the lower extremity. Positive gluteal decubitus ulceration. Positive posterior side decubitus ulceration. MUSCULOSKELETAL: Shows a body mass index of 27. NEUROLOGIC: The patient is alert, awake, and responsive. Gait examination is not tested. DIAGNOSTIC DATA: From 09/05/2018; hemoglobin and hematocrit 9.7 and 31.6 and platelets 125. ABG on 100% FIO2, pH of 7.45, pCO2 of 49, pO2 of 109, bicarb 34, and saturation of 99.2. Sodium 137, potassium 3.4, chloride 99, CO2 of 33, anion gap 8, BUN is gone up to 60, creatinine 2, GFR 33, glucose 106, calcium 7.9, phosphorus 5, and magnesium 2.1. Total protein 5.4 and albumin 2.2. BNP is 21,600. Repeat blood and urine cultures from 08/28/2018, 08/29/2018, and 08/30/2018 are negative. The patient's chest x-ray from 09/05/2018, 09/03/2018, 09/04/2018, and 09/02/2018 were reviewed. The patient had left lung complete opacification with right lower lobe pneumonia, atelectasis with some right-sided pulmonary vascular congestion. IMPRESSION AND PLAN: 1. Status post ventilator-dependent respiratory failure. 2. Bilevel positive airway pressure dependent respiratory failure. 3. Large left pleural effusion with complete left lung opacification of the left lung and right-sided pleural effusion with right lower lobe atelectasis and infiltrate. 4. Pulmonary vascular congestion and right-sided diastolic congestive heart failure. 5. Severe sepsis, status post ventilator-dependent respiratory failure and bilevel positive airway pressure requiring and dependent respiratory failure. 6. Healthcare-associated multilobar pneumonia. 7. Bilateral pleural effusion. 8. Status post hypotensive, hypovolemic septic shock. 9. Status post right thoracentesis with removal of 1700 mL of transudate fluid. 10. Hypothermia. 11. Normocytic anemia. 12. Status post leukocytosis. 13. Granulocytosis and bandemia. 14. Status post hypoxemic-hypercarbic respiratory failure. 15. Hypokalemia. 16. Hyponatremia. 17. Acute renal failure, acute kidney injury versus acute tubular necrosis. 18. Hypocalcemia with hyperphosphatemia. 19. Right-sided diastolic congestive heart failure with elevated ProBNP. 20. Gluteal, sacral, and posterior thighs sacral decubitus ulceration. 21. Mild protein malnutrition and hypoalbuminemia. 22. Vitamin B12 deficiency. 23. Hyperprocalcitonemia. 24. Vitamin B12 deficiency. 25. Hypovitaminosis D. 26. Elevated C-reactive protein of greater than 15. 27. Microscopic hematuria, proteinuria, and bacteriuria. 28. Status post right thoracentesis. 29. Urine drug screen positive for cannabinoids and opiates. 30. Morganella morganii, methicillin-resistant Staphylococcus aureus, Providencia rettgeri, corynebacterium, and Proteus penneri, bilateral lower extremity venous stasis cellulitis, ulceration and superficial leg wound. 31. Gait dysfunction. 32. Deconditioning. 33. Narcotic-dependent pain syndrome. 34. Constipation and fecal stasis. Plan at this time, the patient's case was discussed with ICU resident regarding possible bronchoscopy for evaluation for possible left lung collapse and possible mucus plugging. The patient has been ordered repeat labs. CURRENT CONSULTATION: 1. Surgery. 2. Infectious Disease. 3. Cardiology. 4. Interventional Radiology. 5. Gastroenterology. 6. Hematology and Oncology. 7. Nephrology. 8. Pulmonary. 9. Podiatry. CURRENT MEDICATIONS: Mucomyst nebulizer 20% 4 mL with Xopenex nebulizer every 6 hours, the patient is on Bactroban cream to the affected area, Dakin's solution, Precedex drip, Drisdol 50,000 weekly, bisacodyl, Dulcolax suppository 10 mg at bedtime p.r.n., folic acid 1 mg daily, the patient was supplemented with one dose of potassium 20 mEq, and Lac-Hydrin lotion. The patient has been ordered Lasix 40 IV daily by the ICU resident, Lopressor 50 every 8 hours, Lovenox 40 mg subcu daily, meropenem 500 mg IV every 12 hours, MiraLax 17 g daily, morphine 1 mg IV every 4 hours p.r.n., Nystatin, nicotine patch 21 mg daily, Protonix 40 mg daily, Pulmicort 0.5 mg nebulizer every 12 hours, Santyl daily, Solu-Cortef decreased to 50 mg IV daily, Tylenol p.o. suppository, Zofran 4 mg IV every 4 hours, and Zyvox 600 mg IV every 12 hours. Repeat chest x-ray has been ordered by Pulmonary. The patient has been put on BiPAP. The patient has been ordered liquid diet by the ICU resident. Possibility of the patient's requiring bronchoscopy for evaluation for possible mucus plugging causes left lung opacification was discussed with the ICU resident. Dictated and electronically signed, not read. Carlos Hernandez MD
--- NOTE | 2018-09-06 09:38 | CP.PCM.PN ---
<Kulwant Mathews - Last Filed: 09/06/18 12:25> Subjective - Date & Time of Evaluation Date of Evaluation: 09/06/18 Time of Evaluation: 09:35 - Subjective Subjective: Podiatry progress note: Dr. Lloyd 68 y/o M patient seen and evaluated in ICU for b/l ulcerations. Patient went today into respiratory distress and was intubated and artificially ventilated. As per patient chart Patient didn't have overnight F/N/V or C. Objective - Vital Signs/Intake and Output Vital Signs (last 24 hours): Temp Pulse Resp BP Pulse Ox 97.9 F 86 17 123/55 L 100 09/06/18 08:00 09/06/18 08:00 09/06/18 08:00 09/06/18 08:00 09/06/18 08:00 Intake and Output: 09/06/18 09/06/18 06:59 18:59 Intake Total 188 Output Total 800 Balance -612 - Medications Medications: Current Medications Acetaminophen (Tylenol 325mg Tab) 650 mg PO Q6 PRN PRN Reason: TEMP>=99.5F Last Admin: 09/03/18 13:54 Dose: 650 mg Acetaminophen (Tylenol 650 Mg Supp) 650 mg RC Q6H PRN PRN Reason: TEMP>=99.5F Acetylcysteine (Acetylcysteine 20%) 4 ml IH [id number] [facility] Last Admin: 09/06/18 08:11 Dose: 4 ml Bisacodyl (Dulcolax) 10 mg RC HS PRN PRN Reason: Constipation Budesonide (Pulmicort Respules) 0.5 mg IH [id number] [facility] Last Admin: 09/06/18 08:11 Dose: 0.5 mg Collagenase (Santyl) 0 gm TOP DAILY [facility] Last Admin: 09/05/18 10:52 Dose: 1 appl Enoxaparin Sodium (Lovenox) 40 mg SC DAILY [facility]; Protocol Last Admin: 09/05/18 10:41 Dose: 40 mg Ergocalciferol (Drisdol 50,000 Intl Units Cap) 1 cap PO Q7D [facility] Last Admin: 09/02/18 15:26 Dose: 1 cap Folic Acid (Folic Acid) 1 mg PO DAILY [facility] Last Admin: 09/05/18 10:43 Dose: 1 mg Furosemide (Lasix) 40 mg IVP DAILY [facility] Last Admin: 09/05/18 10:41 Dose: 40 mg Hydrocortisone Sodium Succinate (Solu-Cortef) 50 mg IVP DAILY [facility] Last Admin: 09/05/18 10:42 Dose: 50 mg Linezolid (Zyvox 600mg/300ml D5w) 600 mg in 300 mls @ 200 mls/hr IVPB Q12 [facility]; Protocol Stop: 09/07/18 10:01 Last Admin: 09/05/18 22:30 Dose: 200 mls/hr Dexmedetomidine HCl (Precedex 400mcg/100ml) 400 mcg in 100 mls @ 3.856 mls/hr IV .Q24H [facility]; Protocol PRN Reason: Sedation Last Admin: 09/06/18 06:33 Dose: 0.8 mcg/kg/hr, 15.422 mls/hr Meropenem/Sodium Chloride (Merrem Iv 500 Mg/Ns 50 Ml) 500 mg in 50 mls @ 100 mls/hr IVPB Q12 [facility]; Protocol Stop: 09/08/18 10:01 Last Admin: 09/05/18 21:00 Dose: 100 mls/hr Potassium Chloride (Potassium Chloride 20 Meq/100 Ml) 20 meq in 100 mls @ 50 mls/hr IVPB Q2H [facility] Stop: 09/06/18 11:59 Lactic Acid (Lac-Hydrin 12% Cream (140 G)) 0 ea TOP DAILY [facility] Last Admin: 09/05/18 10:00 Dose: 1 applic Levalbuterol HCl (Xopenex) 0.63 mg IH [id number] [facility] Last Admin: 09/06/18 08:11 Dose: 0.63 mg Metoprolol Tartrate (Lopressor) 50 mg PO Q8H [facility] Last Admin: 08/31/18 10:03 Dose: Not Given Morphine Sulfate (Morphine) 1 mg IVP Q4H PRN PRN Reason: Pain, severe (8-10) Last Admin: 09/05/18 06:09 Dose: 1 mg Mupirocin (Bactroban Ointment) 0 gm TOP BID [facility] Last Admin: 09/05/18 18:08 Dose: 1 appl Nicotine (Nicoderm Cq) 1 patch TD DAILY [facility] Last Admin: 09/05/18 10:42 Dose: 1 patch Nystatin (Mycostatin Cream) 0 ea TOP TID [facility] Last Admin: 09/05/18 18:15 Dose: 1 cre Ondansetron HCl (Zofran Inj) 4 mg IVP Q4H PRN PRN Reason: Nausea/Vomiting Pantoprazole Sodium (Protonix Inj) 40 mg IVP DAILY [facility] Last Admin: 09/05/18 10:42 Dose: 40 mg Polyethylene Glycol (Miralax) 17 gm PO DAILY [facility] Last Admin: 09/05/18 10:43 Dose: Not Given Sodium Hypochlorite (Dakins Solution 0.25%) 0 ml TOP DAILY [facility] Last Admin: 09/05/18 10:51 Dose: 1 applic - Labs Labs: 09/06/18 06:19 09/06/18 06:19 PT 15.1 SECONDS (9.4-12.5) H 08/23/18 22:20 INR 1.36 08/23/18 22:20 APTT 27.9 Seconds (26.9-38.3) 08/23/18 22:20 - Constitutional Appears: In Acute Distress - Head Exam Head Exam: ATRAUMATIC (Patient intubated and ventilated) - Extremities Exam Additional comments: B/L lE focused exam: VASC: DP/PT non-palpable, Temp gradient warm to warm bilaterally, Lymphedema noted bilaterally (improving), non-pitting. Cap refill < 3 sec to all digits. NEURO: grossly intact b/l. DERM: LEFT- 0.5 cm X 0.5 cm wound noted to submetatarsal 1 head, significantly improve d, fibrotic base, no drainage, no tunneling, tracking or probe to bone, no malodor, multiple superficial wounds noted to the lateral aspect of the left ankle with 100% granular skin base, no drainage, no probe to bone, no tunneling or tracking, no malodor, chronic skin trophic changes secondary to long standing peripheral vascular disease, no signs of infection noted clinically RIGHT- Superficial wound noted to the lateral aspect of the leg at the site of previous chronic skin trophic changes secondary to long standing peripheral vascular disease, wound base 100% granular, no drainage, mild malodor, no tunneling, tracking or probe to bone MSK: pain with range of motion, and on palpation to the feet and legs bilaterally. - Neurological Exam Additional comments: Patient is sedated as he is intubated and ventilated. Assessment and Plan - Assessment and Plan (Free Text) Assessment: 68 y/o M with bilateral lower extremity wounds Plan: Patient seen and evaluated [facility], Labs and vitals reviewed; Afebrile, WBC 7.1 Bilateral foot x-ray ordered; no evidence of OM Patient refused CT and MRI before. ID on board Reccs appreciated. continue IV as per ID Obtained Left foot wound cultures: MRSA, Morg morgnanii Wound dressed with bactroban, adaptic, ABD DSD No podiatric intervention planned at this time, in our clinical judgement no evidence of OM, however, cannot be confirmed as patient has refused both MRI/CT Podiatry will continue to follow up the patient while in house <Kvng Lloyd - Last Filed: 09/07/18 09:30> Objective - Vital Signs/Intake and Output Vital Signs (last 24 hours): Temp Pulse Resp BP Pulse Ox 99.7 F H 109 H 20 158/69 H 100 09/07/18 06:50 09/07/18 06:50 09/07/18 06:50 09/07/18 06:50 09/07/18 06:50 Intake and Output: 09/07/18 09/07/18 06:59 18:59 Intake Total 481.1 Output Total 600 Balance -118.9 - Medications Medications: Current Medications Acetaminophen (Tylenol 325mg Tab) 650 mg PO Q6 PRN PRN Reason: TEMP>=99.5F Last Admin: 09/03/18 13:54 Dose: 650 mg Acetaminophen (Tylenol 650 Mg Supp) 650 mg RC Q6H PRN PRN Reason: TEMP>=99.5F Acetylcysteine (Acetylcysteine 20%) 4 ml IH [id number] [facility] Last Admin: 09/07/18 07:51 Dose: 4 ml Bisacodyl (Dulcolax) 10 mg RC HS PRN PRN Reason: Constipation Budesonide (Pulmicort Respules) 0.5 mg IH [id number] [facility] Last Admin: 09/07/18 07:51 Dose: 0.5 mg Collagenase (Santyl) 0 gm TOP DAILY [facility] Last Admin: 09/06/18 12:48 Dose: 2 appl Ergocalciferol (Drisdol 50,000 Intl Units Cap) 1 cap PO Q7D [facility] Last Admin: 09/02/18 15:26 Dose: 1 cap Folic Acid (Folic Acid) 1 mg PO DAILY [facility] Last Admin: 09/06/18 12:43 Dose: Not Given Furosemide (Lasix) 40 mg IVP DAILY [facility] Last Admin: 09/06/18 12:53 Dose: 40 mg Heparin Sodium (Porcine) (Heparin) 5,000 units SC Q8 [facility]; Protocol Last Admin: 09/07/18 06:00 Dose: 5,000 units Hydrocortisone Sodium Succinate (Solu-Cortef) 50 mg IVP DAILY [facility] Last Admin: 09/06/18 12:53 Dose: 50 mg Linezolid (Zyvox 600mg/300ml D5w) 600 mg in 300 mls @ 200 mls/hr IVPB Q12 [facility]; Protocol Stop: 09/07/18 10:01 Last Admin: 09/06/18 22:15 Dose: 200 mls/hr Dexmedetomidine HCl (Precedex 400mcg/100ml) 400 mcg in 100 mls @ 3.856 mls/hr IV .Q24H PRN; Protocol PRN Reason: Sedation Last Titration: 09/07/18 00:00 Dose: 0.7 mcg/kg/hr, 13.494 mls/hr Meropenem/Sodium Chloride (Merrem Iv 500 Mg/Ns 50 Ml) 500 mg in 50 mls @ 100 mls/hr IVPB Q12 [facility]; Protocol Stop: 09/08/18 10:01 Last Admin: 09/06/18 21:10 Dose: 100 mls/hr Propofol (Diprivan) 1,000 mg in 100 mls @ 2.313 mls/hr IV .Q24H PRN; Protocol PRN Reason: TITRATE PER MD ORDER Last Titration: 09/06/18 13:04 Dose: 0 mcg/kg/min, 0 mls/hr NOREPINEPHRINE BIT/0.9 % NACL (Levophed 4 Mg/ 250 Ml Ns Premixed) 4 mg in 250 mls @ 15 mls/hr IV .[id number] PRN; Protocol PRN Reason: TITRATE PER MD ORDER Last Titration: 09/06/18 13:10 Dose: 0 mcg/min, 0 mls/hr Potassium Chloride (Potassium Chloride 20 Meq/100 Ml) 20 meq in 100 mls @ 50 mls/hr IVPB Q2H [facility] Stop: 09/07/18 13:44 Acetaminophen (Ofirmev) 1,000 mg in 100 mls @ 400 mls/hr IVPB Q6H PRN PRN Reason: Temperature Stop: 09/09/18 08:59 Lactic Acid (Lac-Hydrin 12% Cream (140 G)) 0 ea TOP DAILY [facility] Last Admin: 09/06/18 19:17 Dose: Not Given Levalbuterol HCl (Xopenex) 0.63 mg IH [id number] [facility] Last Admin: 09/07/18 07:51 Dose: 0.63 mg Metoprolol Tartrate (Lopressor) 50 mg PO Q8H [facility] Last Admin: 08/31/18 10:03 Dose: Not Given Morphine Sulfate (Morphine) 1 mg IVP Q4H PRN PRN Reason: Pain, severe (8-10) Last Admin: 09/06/18 21:15 Dose: 1 mg Mupirocin (Bactroban Ointment) 0 gm TOP BID [facility] Last Admin: 09/06/18 19:17 Dose: Not Given Nicotine (Nicoderm Cq) 1 patch TD DAILY [facility] Last Admin: 09/06/18 12:54 Dose: 1 patch Nystatin (Mycostatin Cream) 0 ea TOP TID [facility] Last Admin: 09/06/18 19:18 Dose: Not Given Ondansetron HCl (Zofran Inj) 4 mg IVP Q4H PRN PRN Reason: Nausea/Vomiting Pantoprazole Sodium (Protonix Inj) 40 mg IVP DAILY [facility] Last Admin: 09/06/18 12:53 Dose: 40 mg Polyethylene Glycol (Miralax) 17 gm PO DAILY [facility] Last Admin: 09/06/18 12:45 Dose: Not Given Sodium Hypochlorite (Dakins Solution 0.25%) 0 ml TOP DAILY [facility] Last Admin: 09/06/18 12:39 Dose: 1 applic - Labs Labs: 09/07/18 06:00 09/07/18 06:00 PT 15.1 SECONDS (9.4-12.5) H 08/23/18 22:20 INR 1.36 08/23/18 22:20 APTT 27.9 Seconds (26.9-38.3) 08/23/18 22:20 Attending/Attestation - Attestation I have personally seen and examined this patient.: Yes I have fully participated in the care of the patient.: Yes I have reviewed all pertinent clinical information, including history, physical exam and plan: Yes
[2018-09-06] MEDS ORDERED: Etomidate 20 mg/10ml Inj IVP STA (09:41)
[2018-09-06] MEDS ORDERED: Propofol 10 mg/ml 1,000 MG/100 ML VIAL IV PRN (10:08)
[2018-09-06] MEDS ORDERED: Etomidate 20 mg/10ml Inj IV STA (10:09)
[2018-09-06] MEDS ORDERED: Propofol 10 mg/ml 1,000 MG/100 ML VIAL ONE (10:16)
--- NOTE | 2018-09-06 10:30 | RAD ---
Date of service: 09/06/2018 HISTORY: f/u COMPARISON: 09/05/2018 FINDINGS: LUNGS: There is complete opacification of the left hemithorax with mediastinal shift to the left. This is unchanged PLEURA: As above CARDIOVASCULAR: No aortic atherosclerotic calcification present. Normal cardiac size. No pulmonary vascular congestion. OSSEOUS STRUCTURES: No significant abnormalities. VISUALIZED UPPER ABDOMEN: Normal. OTHER FINDINGS: None. IMPRESSION: There is complete opacification of the left hemithorax with mediastinal shift to the left. This is unchanged
[2018-09-06] MEDS ORDERED: Midazolam 2 MG/2 ML VIAL IVP ONE (10:34)
[2018-09-06] MEDS ORDERED: Midazolam 2 MG/2 ML VIAL ONE (10:37)
[2018-09-06] MEDS ORDERED: Sodium Chloride 0.9% 500 ML IV STA (11:21)
[2018-09-06] MEDS ORDERED: NOREPINEPHRINE BIT/0.9 % NACL 4 MG/250 ML BAG IV PRN (11:24)
--- NOTE | 2018-09-06 12:17 | CP.PCM.PN ---
Subjective - Date & Time of Evaluation Date of Evaluation: 09/06/18 Time of Evaluation: 09:55 - Subjective Subjective: Patient again went into respiratory distress and is currently intubated, bronchoscopy being done, no fevers noted. Patient sedated but arousable. Objective - Vital Signs/Intake and Output Vital Signs (last 24 hours): Temp Pulse Resp BP Pulse Ox 95.7 F L 61 21 118/55 L 100 09/05/18 09:00 09/05/18 09:00 09/05/18 09:00 09/05/18 09:00 09/05/18 09:00 Intake and Output: 09/05/18 09/05/18 06:59 18:59 Intake Total 832 Output Total 800 Balance 32 - Medications Medications: Current Medications Acetaminophen (Tylenol 325mg Tab) 650 mg PO Q6 PRN PRN Reason: TEMP>=99.5F Last Admin: 09/03/18 13:54 Dose: 650 mg Acetaminophen (Tylenol 650 Mg Supp) 650 mg RC Q6H PRN PRN Reason: TEMP>=99.5F Acetylcysteine (Acetylcysteine 20%) 4 ml IH [id number] [facility] Last Admin: 09/05/18 07:43 Dose: 4 ml Bisacodyl (Dulcolax) 10 mg RC HS PRN PRN Reason: Constipation Budesonide (Pulmicort Respules) 0.5 mg IH [id number] [facility] Last Admin: 09/05/18 07:43 Dose: 0.5 mg Collagenase (Santyl) 0 gm TOP DAILY [facility] Last Admin: 09/04/18 10:00 Dose: 1 appl Enoxaparin Sodium (Lovenox) 40 mg SC DAILY [facility]; Protocol Last Admin: 09/04/18 09:42 Dose: 40 mg Ergocalciferol (Drisdol 50,000 Intl Units Cap) 1 cap PO Q7D [facility] Last Admin: 09/02/18 15:26 Dose: 1 cap Folic Acid (Folic Acid) 1 mg PO DAILY [facility] Last Admin: 09/04/18 09:56 Dose: 1 mg Furosemide (Lasix) 40 mg IVP DAILY [facility] Last Admin: 09/04/18 09:43 Dose: 40 mg Hydrocortisone Sodium Succinate (Solu-Cortef) 50 mg IVP DAILY [facility] Linezolid (Zyvox 600mg/300ml D5w) 600 mg in 300 mls @ 200 mls/hr IVPB Q12 [facility]; Protocol Stop: 09/07/18 10:01 Last Admin: 09/04/18 21:35 Dose: 200 mls/hr Dexmedetomidine HCl (Precedex 400mcg/100ml) 400 mcg in 100 mls @ 3.856 mls/hr IV .Q24H PRN; Protocol PRN Reason: Sedation Last Admin: 09/05/18 04:16 Dose: 0.8 mcg/kg/hr, 15.422 mls/hr Dobutamine HCl/Dextrose (Dobutamine/Dextrose 5% 500mg/250ml) 500 mg in 250 mls @ 5.783 mls/hr IV .Q24H PRN; Protocol PRN Reason: TITRATE PER PROTOCOL Last Titration: 09/03/18 18:00 Dose: 0 mcg/kg/min, 0 mls/hr Meropenem/Sodium Chloride (Merrem Iv 500 Mg/Ns 50 Ml) 500 mg in 50 mls @ 100 mls/hr IVPB Q12 [facility]; Protocol Stop: 09/08/18 10:01 Last Admin: 09/04/18 21:00 Dose: 100 mls/hr Lactic Acid (Lac-Hydrin 12% Cream (140 G)) 0 ea TOP DAILY [facility] Last Admin: 09/04/18 09:52 Dose: 1 applic Levalbuterol HCl (Xopenex) 0.63 mg IH [id number] [facility] Last Admin: 09/05/18 07:43 Dose: 0.63 mg Metoprolol Tartrate (Lopressor) 50 mg PO Q8H [facility] Last Admin: 08/31/18 10:03 Dose: Not Given Morphine Sulfate (Morphine) 1 mg IVP Q4H PRN PRN Reason: Pain, severe (8-10) Last Admin: 09/05/18 06:09 Dose: 1 mg Mupirocin (Bactroban Ointment) 0 gm TOP BID [facility] Last Admin: 09/04/18 18:50 Dose: 1 appl Nicotine (Nicoderm Cq) 1 patch TD DAILY [facility] Last Admin: 09/04/18 09:44 Dose: 1 patch Nystatin (Mycostatin Cream) 0 ea TOP TID [facility] Last Admin: 09/04/18 18:47 Dose: 1 cre Ondansetron HCl (Zofran Inj) 4 mg IVP Q4H PRN PRN Reason: Nausea/Vomiting Pantoprazole Sodium (Protonix Inj) 40 mg IVP DAILY [facility] Last Admin: 09/04/18 09:42 Dose: 40 mg Polyethylene Glycol (Miralax) 17 gm PO DAILY [facility] Last Admin: 09/04/18 09:45 Dose: Not Given Sodium Hypochlorite (Dakins Solution 0.25%) 0 ml TOP DAILY [facility] Last Admin: 09/04/18 09:53 Dose: 1 applic - Labs Labs: 09/05/18 06:15 09/05/18 06:15 PT 15.1 SECONDS (9.4-12.5) H 08/23/18 22:20 INR 1.36 08/23/18 22:20 APTT 27.9 Seconds (26.9-38.3) 08/23/18 22:20 - Constitutional Appears: Chronically Ill, Other (intubated, sedated) - Head Exam Head Exam: NORMAL INSPECTION - ENT Exam Additional comments: ET tube in place - Respiratory Exam Respiratory Exam: Decreased Breath Sounds - Cardiovascular Exam Cardiovascular Exam: +S1, +S2 - GI/Abdominal Exam GI & Abdominal Exam: Soft. absent: Tenderness Assessment and Plan - Assessment and Plan (Free Text) Plan: Assessment severe sepsis / S/P shock now again on ventilator-dependent respiratory failure and acute renal failure due to probable right lower lobe hospital-acquired pneu monia, with bilateral pleural effusions S/P right sided thoracentesis, now again with left hemithorax opacification R/O mucus plugging Infected left lower extremity wounds, R/O osteomyelitis, grew MRSA chronic back pain vertebral disc disease venous stasis dermatitis Plan continue Zyvox and will also continue Merrem (day 8 of combination) - will repeat blood cx, sputum cx; Zyvox will also cover the MRSA in the foot will await results of the bronchoscopy awaiting MRI of the foot but patient is critically ill currently patient had thoracentesis on the right and fluid looks to be transudative discussed with Dr. Lloyd - no surgery for the foot for now will continue to monitor clinically overall prognosis is poor
--- NOTE | 2018-09-06 12:28 | CP.CCUPN ---
<Augusto Zimmerman - Last Filed: 09/06/18 13:58> CCU Subjective - Physician Review Subjective (Free Text): 09/06/18 13:58 Augusto Zimmerman, PGY-1 ICU Progress Note for Dr. Angel: Pt was seen and examined this AM by ICU team. Overnight the pt had no acute issues. Pt today was sating well on Bipap @ 100 FiO2. Pt noted to have continued white out of the L lung. Pt inubated and bronched and multiple mucus plugs were removed. Pt is now sating in the high 90s on ventilator. CCU Objective - Vital Signs / Intake & Output Intake and Output (Last 8hrs): Intake & Output 09/05/18 09/06/18 09/06/18 22:59 06:59 14:59 Intake Total 755 188 Output Total 0 800 Balance 755 -612 Intake: IV 575 188 antibiotic 300 precedex 175 88 Oral 180 Output: Urine 800 2-way Urethral 800 Stool 0 Other: # Bowel Movements 0 0 - Physical Exam Physical Exam Limitations: Positive for: Other (Pt is sedated and intubated) Head: Positive for: Atraumatic, Normocephalic Pupils: Positive for: PERRL Extroacular Muscles: Positive for: EOMI Conjunctiva: Positive for: Normal Mouth: Positive for: Moist Mucous Membranes Neck: Positive for: Normal Range of Motion Respiratory/Chest: Positive for: Decreased Breath Sounds (worse on L than R), Other (Pt is intubated and ETT in place.). Negative for: Respiratory Distress, Accessory Muscle Use, Wheezes, Rales, Rhonchi Cardiovascular: Positive for: Regular Rate and Rhythm, Normal S1, S2. Negative for: Murmurs Abdomen: Positive for: Normal Bowel Sounds. Negative for: Tenderness, Distention, Peritoneal Signs Back: Positive for: Decubitus Ulcer (Sacral) Upper Extremity: Positive for: Normal Inspection. Negative for: Cyanosis, Edema Lower Extremity: Positive for: Normal Inspection, Normal ROM, Other (2 large skin decubiti on the posterior thighs bilaterally, both infected with surrou nding erythema) Neurological: Positive for: Other (Pt is intubated and sedated.) Skin: Positive for: Warm, Dry, Normal Color. Negative for: Rashes Psychiatric: Positive for: Other (Pt is sedated) - Medications Active Medications: Active Medications Generic Name Dose Route Start Last Admin Trade Name Freq PRN Reason Stop Dose Admin Acetaminophen 650 mg 08/24/18 00:04 09/03/18 13:54 Tylenol 325mg Tab PO 650 mg Q6 PRN Administration TEMP>=99.5F Acetaminophen 650 mg 08/24/18 00:04 Tylenol 650 Mg Supp RC Q6H PRN TEMP>=99.5F Acetylcysteine 4 ml 08/24/18 09:00 09/06/18 08:11 Acetylcysteine 20% IH 4 ml [id number] CASSY Administration Bisacodyl 10 mg 08/28/18 12:39 Dulcolax RC HS PRN Constipation Budesonide 0.5 mg 09/02/18 08:00 09/06/18 08:11 Pulmicort Respules IH 0.5 mg [id number] CASSY Administration Collagenase 0 gm 08/25/18 10:00 09/05/18 10:52 Santyl TOP 1 appl DAILY CASSY Administration Enoxaparin Sodium 40 mg 08/31/18 10:00 09/05/18 10:41 Lovenox SC 40 mg DAILY CASSY Administration Protocol Ergocalciferol 1 cap 08/26/18 15:00 09/02/18 15:26 Drisdol 50,000 Intl Units Cap PO 1 cap Q7D CASSY Administration Folic Acid 1 mg 08/26/18 15:00 09/05/18 10:43 Folic Acid PO 1 mg DAILY CASSY Administration Furosemide 40 mg 09/02/18 10:00 09/05/18 10:41 Lasix IVP 40 mg DAILY CASSY Administration Hydrocortisone Sodium Succinate 50 mg 09/05/18 10:00 09/05/18 10:42 Solu-Cortef IVP 50 mg DAILY CASSY Administration Linezolid 600 mg in 300 mls @ 200 mls/hr 08/31/18 10:00 09/05/18 22:30 Zyvox 600mg/300ml D5w IVPB 09/07/18 10:01 200 mls/hr Q12 CASSY Administration Protocol Dexmedetomidine HCl 400 mcg in 100 mls @ 3.856 mls/hr 08/31/18 16:50 09/06/18 06:33 Precedex 400mcg/100ml IV 0.8 mcg/kg/hr .Q24H PRN 15.422 mls/hr Sedation Administration Protocol 0.2 MCG/KG/HR Meropenem/Sodium Chloride 500 mg in 50 mls @ 100 mls/hr 09/03/18 10:00 09/05/18 21:00 Merrem Iv 500 Mg/Ns 50 Ml IVPB 09/08/18 10:01 100 mls/hr Q12 CASSY Administration Protocol Propofol 1,000 mg in 100 mls @ 2.313 mls/hr 09/06/18 10:08 Diprivan IV .Q24H PRN TITRATE PER MD ORDER Protocol 5 MCG/KG/MIN NOREPINEPHRINE BIT/0.9 % NACL 4 mg in 250 mls @ 15 mls/hr 09/06/18 11:24 Levophed 4 Mg/ 250 Ml Ns Premixed IV .[id number] PRN TITRATE PER MD ORDER Protocol 4 MCG/MIN Lactic Acid 0 ea 08/28/18 11:45 09/05/18 10:00 Lac-Hydrin 12% Cream (140 G) TOP 1 applic DAILY CASSY Administration Levalbuterol HCl 0.63 mg 09/04/18 20:00 09/06/18 08:11 Xopenex IH 0.63 mg [id number] CASSY Administration Metoprolol Tartrate 50 mg 08/30/18 09:00 08/31/18 10:03 Lopressor PO Not Given Q8H CASSY Morphine Sulfate 1 mg 09/03/18 15:46 09/05/18 06:09 Morphine IVP 1 mg Q4H PRN Administration Pain, severe (8-10) Mupirocin 0 gm 08/25/18 10:00 09/05/18 18:08 Bactroban Ointment TOP 1 appl BID CASSY Administration Nicotine 1 patch 08/24/18 10:00 09/05/18 10:42 Nicoderm Cq TD 1 patch DAILY CASSY Administration Nystatin 0 ea 09/03/18 18:00 09/05/18 18:15 Mycostatin Cream TOP 1 cre TID CASSY Administration Ondansetron HCl 4 mg 08/24/18 00:04 Zofran Inj IVP Q4H PRN Nausea/Vomiting Pantoprazole Sodium 40 mg 09/02/18 10:00 09/05/18 10:42 Protonix Inj IVP 40 mg DAILY CASSY Administration Polyethylene Glycol 17 gm 08/31/18 10:00 09/05/18 10:43 Miralax PO Not Given DAILY CASSY Sodium Hypochlorite 0 ml 09/01/18 13:00 09/05/18 10:51 Dakins Solution 0.25% TOP 1 applic DAILY CASSY Administration - Patient Studies Lab Studies: Lab Studies 09/06/18 09/06/18 09/06/18 Range/Units 06:35 06:19 06:19 WBC 7.1 D (4.5-11.0) 10^3/uL RBC 3.85 (3.5-6.1) 10^6/uL Hgb 10.3 L (14.0-18.0) g/dL Hct 34.1 L (42.0-52.0) % MCV 88.6 (80.0-105.0) fl MCH 26.8 (25.0-35.0) pg MCHC 30.2 L (31.0-37.0) g/dl RDW 14.9 H (11.5-14.5) % Plt Count 132 (120.0-450.0) 10^3/uL MPV 10.4 (7.0-11.0) fl Neut % (Auto) 66.8 (50.0-68.0) % Lymph % (Auto) 12.0 L (22.0-35.0) % Andrew % (Auto) 13.2 H (1.0-6.0) % Eos % (Auto) 7.9 H (1.5-5.0) % Baso % (Auto) 0.1 (0.0-3.0) % Lymph # (Auto) 0.9 L (1.2-3.4) Andrew # (Auto) 0.9 H (0.1-0.6) Eos # (Auto) 0.6 (0.0-0.7) Baso # (Auto) 0.01 (0.0-2.0) K/mm3 Absolute Neuts (auto) 4.71 (1.4-6.5) pCO2 45 (35-45) mm/Hg pO2 72.0 L (80-100) mm/Hg HCO3 33.5 H (21-28) mmol/L ABG pH 7.48 H (7.35-7.45) ABG Total CO2 34.9 H (22-28) mmol.L ABG O2 Saturation 97.1 (95-98) % ABG O2 Content 13.3 L (15-23) ML/dl ABG Base Excess 9.0 H (-2.0-3.0) mmol/L ABG Hemoglobin 10.0 L (11.7-17.4) g/dL ABG Carboxyhemoglobin 1.6 H (0.5-1.5) % POC ABG HHb (Measured) 2.8 (0-5) % ABG Methemoglobin 1.6 (0.0-3.0) % ABG O2 Capacity 13.7 L (16-24) mL/dl Hgb O2 Saturation 94.0 L (95.0-98.0) % FiO2 100.0 % Sodium 139 (132-148) mmol/L Potassium 3.0 L (3.6-5.0) mmol/L Chloride 100 (98-107) mmol/L Carbon Dioxide 35 H (21-33) mmol/L Anion Gap 7 L (10-20) BUN 62 H (7-21) mg/dL Creatinine 2.0 H (0.8-1.5) mg/dl Est GFR ( Amer) 40 Est GFR (Non-Af Amer) 33 Random Glucose 89 (70-110) mg/dL Calcium 8.0 L (8.4-10.5) mg/dL Phosphorus 3.9 (2.5-4.5) mg/dL Magnesium 2.1 (1.7-2.2) mg/dL Total Bilirubin 1.0 (0.2-1.3) mg/dL Direct Bilirubin 0.7 H (0.0-0.4) mg/dL AST 28 (17-59) U/L ALT 15 (7-56) U/L Alkaline Phosphatase 73 (38-126) U/L NT-Pro-B Natriuret Pep 41730 H (0-450) pg/mL Total Protein 5.5 L (5.8-8.3) g/dL Albumin 2.2 L (3.0-4.8) g/dL Globulin 3.4 gm/dL Albumin/Globulin Ratio 0.6 L (1.1-1.8) Laboratory Results - last 24 hr 02/18/19 02/18/19 02/18/19 06:19 06:19 06:35 WBC 7.1 D RBC 3.85 Hgb 10.3 L Hct 34.1 L MCV 88.6 MCH 26.8 MCHC 30.2 L RDW 14.9 H Plt Count 132 MPV 10.4 Neut % (Auto) 66.8 Lymph % (Auto) 12.0 L Andrew % (Auto) 13.2 H Eos % (Auto) 7.9 H Baso % (Auto) 0.1 Lymph # (Auto) 0.9 L Andrew # (Auto) 0.9 H Eos # (Auto) 0.6 Baso # (Auto) 0.01 Absolute Neuts (auto) 4.71 pCO2 45 pO2 72.0 L HCO3 33.5 H ABG pH 7.48 H ABG Total CO2 34.9 H ABG O2 Saturation 97.1 ABG O2 Content 13.3 L ABG Base Excess 9.0 H ABG Hemoglobin 10.0 L ABG Carboxyhemoglobin 1.6 H POC ABG HHb (Measured) 2.8 ABG Methemoglobin 1.6 ABG O2 Capacity 13.7 L Hgb O2 Saturation 94.0 L FiO2 100.0 Sodium 139 Potassium 3.0 L Chloride 100 Carbon Dioxide 35 H Anion Gap 7 L BUN 62 H Creatinine 2.0 H Est GFR ( Amer) 40 Est GFR (Non-Af Amer) 33 Random Glucose 89 Calcium 8.0 L Phosphorus 3.9 Magnesium 2.1 Total Bilirubin 1.0 Direct Bilirubin 0.7 H AST 28 ALT 15 Alkaline Phosphatase 73 NT-Pro-B Natriuret Pep 36782 H Total Protein 5.5 L Albumin 2.2 L Globulin 3.4 Albumin/Globulin Ratio 0.6 L Radiology Impressions: Radiology Impressions Chest X-Ray 09/05/18 06:00 IMPRESSION: Complete opacification left hemithorax large right-sided effusion and right lower lobe atelectasis and or infiltrate. There also appears to be some mild central pulmonary vascular congestive changes seen in the right lung Chest X-Ray 09/06/18 06:00 IMPRESSION: There is complete opacification of the left hemithorax with mediastinal shift to the left. This is unchanged Critical Care Progress Note - Nutrition Nutrition: Nutrition Category Date Time Status NPO Diet [DIET] Diets 09/06/18 Breakfast Ordered Assessment/Plan - Assessment and Plan (Free Text) Assessment: Pt is a 68 yo M with pmhx of chronic back pain and vertebral disc disease who presented to the [facility] [place] ED for complaints of b/l foot pain and back pain. ICU is consulted for management of pts acute hypercapnic respiratory failure and AMS. Pt had R thoracentesis done 08/31, pt was also intubated due to continued resp acidosis even on 100% FiO2 on Bipap. Pt was noted to have recurrence of L sided white out likely 2/2 mucous plug. Pt was intubated today and bronched and mutliple mucus plugs were removed. Repeat CXR showed clearing of whiteout in the LULs. Pt will stay intubated today and monitored. Plan: Neuro: - AOx3 - Will wean off precedex drip Pulm: Acute hypercapnic resp failure leading to respiratory acidosis w/ chronic incomplete compensatory resp alkalosis: - Likely 2/2 CHF exacerbation vs PNA vs mucous plug. Unlikely PE due to r/o by CTA - Pt intubated and subsequently bronched for mucous plug removal. - CXR: Improvement of L sided whiteout s/p bronchoscopy with mucous plug removal - Echo showed mildly imparied LV systolic dysfunction - BNP elevated - Abrams - Strict I/Os. Minimize positive fluid balance - Daily weight PNA vs CHF: - Procal elevated - CXR and echo resulted noted above - ID on board, recs appreciated: Merrem q8 and vanc day 7 of combination tx - Repeat blood, urine and sputum cultures Cardio: Shock: Septic vs cardiogenic: - Pt weaned off of levophed and dobutamine - Continue lasix for diuresis for suspected cardiogenic shock - s/p Thoracentesis 08/31: 1700ml out - s/p bronch for mucous plug removal 09/06 - decrease stress dose steroids to 50mg daily - Goal is MAP > 65 Nephro: Pre-renal Azotemia: - BUN/Cr = 62/2.0 - UA, urine sodium, urine cl, urine osms, urine protein and serum osms ordered - Will cont to monitor - Will give lasix, now due to fluid overload and respiratory compromise but will limit other nephrotoxic agents - Nephro consulted, recs appreciated - Monitor I/Os, try to maintain negative fluid balance. GI: - NPO - Protonix MSK: B/l foot cellulitis - MRSA (+): - continue multipodus boots - cultures growing MRSA - Continue IV Vanc. ID following - Pt is refusing MRI to r/o osteomyelitis ID: Stage 3 Sacral decub ulcer: - Pt refusing MRI - Santyl and local wound care - Cont Vancomycin per ID recs - Will discuss with ID to transition to oral abx in order to minimize positive fluid balance DVT PPx: Lovenox/Protonix Case seen, examined and discussed with attending physician, Dr. Jeanne Zimmerman PGY1 <Lynn Angel - Last Filed: 09/06/18 16:20> CCU Objective - Vital Signs / Intake & Output Vital Signs (Last 4 hours): Vital Signs Temp Pulse Resp BP Pulse Ox 09/06/18 15:30 128/51 L 09/06/18 15:29 99.1 F 88 21 100 09/06/18 15:25 99.1 F 94 H 20 120/50 L 100 09/06/18 15:20 99.1 F 94 H 20 134/56 L 100 09/06/18 15:15 99.1 F 97 H 19 125/53 L 100 09/06/18 15:10 99.1 F 85 20 130/59 L 99 09/06/18 15:05 99.0 F 89 20 133/57 L 99 09/06/18 15:00 99.0 F 91 H 20 128/57 L 100 09/06/18 14:55 99.0 F 91 H 20 137/55 L 100 09/06/18 14:50 98.8 F 89 20 131/60 100 09/06/18 14:45 98.8 F 95 H 20 127/58 L 100 09/06/18 14:40 98.8 F 93 H 20 127/62 100 09/06/18 14:35 98.8 F 89 19 128/62 100 09/06/18 14:30 98.8 F 96 H 21 139/57 L 100 09/06/18 14:25 98.8 F 98 H 20 134/60 100 09/06/18 14:22 98.8 F 103 H 100 09/06/18 14:20 98.8 F 99 H 19 133/57 L 100 09/06/18 14:15 98.8 F 100 H 15 134/57 L 100 09/06/18 14:10 98.8 F 86 15 138/64 100 09/06/18 14:05 98.8 F 99 H 19 125/62 100 09/06/18 14:00 98.8 F 96 H 24 133/60 100 09/06/18 13:55 98.8 F 95 H 18 119/55 L 100 09/06/18 13:50 98.8 F 98 H 21 111/55 L 99 09/06/18 13:45 98.6 F 100 H 20 120/49 L 99 09/06/18 13:40 98.8 F 97 H 19 119/51 L 100 09/06/18 13:35 98.8 F 91 H 20 122/53 L 100 09/06/18 13:30 98.6 F 97 H 21 100 09/06/18 12:53 122/55 L Intake and Output (Last 8hrs): Intake & Output 09/06/18 09/06/18 09/06/18 06:59 14:59 22:59 Intake Total 188 40 Output Total 800 Balance -612 40 Intake: IV 188 40 precedex 88 Output: Urine 800 2-way Urethral 800 Other: # Bowel Movements 0 - Medications Active Medications: Active Medications Generic Name Dose Route Start Last Admin Trade Name Freq PRN Reason Stop Dose Admin Acetaminophen 650 mg 08/24/18 00:04 09/03/18 13:54 Tylenol 325mg Tab PO 650 mg Q6 PRN Administration TEMP>=99.5F Acetaminophen 650 mg 08/24/18 00:04 Tylenol 650 Mg Supp RC Q6H PRN TEMP>=99.5F Acetylcysteine 4 ml 08/24/18 09:00 09/06/18 13:19 Acetylcysteine 20% IH 4 ml [id number] CASSY Administration Bisacodyl 10 mg 08/28/18 12:39 Dulcolax RC HS PRN Constipation Budesonide 0.5 mg 09/02/18 08:00 09/06/18 08:11 Pulmicort Respules IH 0.5 mg [id number] CASSY Administration Collagenase 0 gm 08/25/18 10:00 09/06/18 12:48 Santyl TOP 2 appl DAILY CASSY Administration Ergocalciferol 1 cap 08/26/18 15:00 09/02/18 15:26 Drisdol 50,000 Intl Units Cap PO 1 cap Q7D CASSY Administration Folic Acid 1 mg 08/26/18 15:00 09/06/18 12:43 Folic Acid PO Not Given DAILY CASSY Furosemide 40 mg 09/02/18 10:00 09/06/18 12:53 Lasix IVP 40 mg DAILY CASSY Administration Heparin Sodium (Porcine) 5,000 units 09/06/18 22:00 Heparin SC Q8 CASSY Protocol Hydrocortisone Sodium Succinate 50 mg 09/05/18 10:00 09/06/18 12:53 Solu-Cortef IVP 50 mg DAILY CASSY Administration Linezolid 600 mg in 300 mls @ 200 mls/hr 08/31/18 10:00 09/06/18 12:55 Zyvox 600mg/300ml D5w IVPB 09/07/18 10:01 200 mls/hr Q12 CASSY Administration Protocol Dexmedetomidine HCl 400 mcg in 100 mls @ 3.856 mls/hr 08/31/18 16:50 09/06/18 06:33 Precedex 400mcg/100ml IV 0.8 mcg/kg/hr .Q24H PRN 15.422 mls/hr Sedation Administration Protocol 0.2 MCG/KG/HR Meropenem/Sodium Chloride 500 mg in 50 mls @ 100 mls/hr 09/03/18 10:00 09/06/18 12:44 Merrem Iv 500 Mg/Ns 50 Ml IVPB 09/08/18 10:01 100 mls/hr Q12 CASSY Administration Protocol Propofol 1,000 mg in 100 mls @ 2.313 mls/hr 09/06/18 10:08 09/06/18 13:04 Diprivan IV 0 mcg/kg/min .Q24H PRN 0 mls/hr TITRATE PER MD ORDER Titration Protocol 5 MCG/KG/MIN NOREPINEPHRINE BIT/0.9 % NACL 4 mg in 250 mls @ 15 mls/hr 09/06/18 11:24 09/06/18 13:10 Levophed 4 Mg/ 250 Ml Ns Premixed IV 0 mcg/min .[id number] PRN 0 mls/hr TITRATE PER MD ORDER Titration Protocol 4 MCG/MIN Lactic Acid 0 ea 08/28/18 11:45 09/05/18 10:00 Lac-Hydrin 12% Cream (140 G) TOP 1 applic DAILY CASSY Administration Levalbuterol HCl 0.63 mg 09/04/18 20:00 09/06/18 13:19 Xopenex IH 0.63 mg [id number] CASSY Administration Metoprolol Tartrate 50 mg 08/30/18 09:00 08/31/18 10:03 Lopressor PO Not Given Q8H CASSY Morphine Sulfate 1 mg 09/03/18 15:46 09/06/18 13:57 Morphine IVP 1 mg Q4H PRN Administration Pain, severe (8-10) Mupirocin 0 gm 08/25/18 10:00 09/06/18 12:39 Bactroban Ointment TOP 2 appl BID CASSY Administration Nicotine 1 patch 08/24/18 10:00 09/06/18 12:54 Nicoderm Cq TD 1 patch DAILY CASSY Administration Nystatin 0 ea 09/03/18 18:00 09/06/18 12:47 Mycostatin Cream TOP 2 cre TID CASYS Administration Ondansetron HCl 4 mg 08/24/18 00:04 Zofran Inj IVP Q4H PRN Nausea/Vomiting Pantoprazole Sodium 40 mg 09/02/18 10:00 09/06/18 12:53 Protonix Inj IVP 40 mg DAILY CASSY Administration Polyethylene Glycol 17 gm 08/31/18 10:00 09/06/18 12:45 Miralax PO Not Given DAILY CASSY Sodium Hypochlorite 0 ml 09/01/18 13:00 09/06/18 12:39 Dakins Solution 0.25% TOP 1 applic DAILY CASSY Administration - Patient Studies Lab Studies: Lab Studies 09/06/18 09/06/18 09/06/18 Range/Units 14:10 06:35 06:19 WBC (4.5-11.0) 10^3/uL RBC (3.5-6.1) 10^6/uL Hgb (14.0-18.0) g/dL Hct (42.0-52.0) % MCV (80.0-105.0) fl MCH (25.0-35.0) pg MCHC (31.0-37.0) g/dl RDW (11.5-14.5) % Plt Count (120.0-450.0) 10^3/uL MPV (7.0-11.0) fl Neut % (Auto) (50.0-68.0) % Lymph % (Auto) (22.0-35.0) % Andrew % (Auto) (1.0-6.0) % Eos % (Auto) (1.5-5.0) % Baso % (Auto) (0.0-3.0) % Lymph # (Auto) (1.2-3.4) Andrew # (Auto) (0.1-0.6) Eos # (Auto) (0.0-0.7) Baso # (Auto) (0.0-2.0) K/mm3 Absolute Neuts (auto) (1.4-6.5) pCO2 45 (35-45) mm/Hg pO2 72.0 L (80-100) mm/Hg HCO3 33.5 H (21-28) mmol/L ABG pH 7.48 H (7.35-7.45) ABG Total CO2 34.9 H (22-28) mmol.L ABG O2 Saturation 97.1 (95-98) % ABG O2 Content 13.3 L (15-23) ML/dl ABG Base Excess 9.0 H (-2.0-3.0) mmol/L ABG Hemoglobin 10.0 L (11.7-17.4) g/dL ABG Carboxyhemoglobin 1.6 H (0.5-1.5) % POC ABG HHb (Measured) 2.8 (0-5) % ABG Methemoglobin 1.6 (0.0-3.0) % ABG O2 Capacity 13.7 L (16-24) mL/dl Hgb O2 Saturation 94.0 L (95.0-98.0) % FiO2 100.0 % Sodium 139 139 (132-148) mmol/L Potassium 3.5 L 3.0 L (3.6-5.0) mmol/L Chloride 102 100 (98-107) mmol/L Carbon Dioxide 35 H 35 H (21-33) mmol/L Anion Gap 6 L 7 L (10-20) BUN 65 H 62 H (7-21) mg/dL Creatinine 1.8 H 2.0 H (0.8-1.5) mg/dl Est GFR ( Amer) 45 40 Est GFR (Non-Af Amer) 37 33 Random Glucose 80 89 (70-110) mg/dL Calcium 7.9 L 8.0 L (8.4-10.5) mg/dL Phosphorus 3.9 (2.5-4.5) mg/dL Magnesium 2.1 (1.7-2.2) mg/dL Total Bilirubin 1.0 (0.2-1.3) mg/dL Direct Bilirubin 0.7 H (0.0-0.4) mg/dL AST 28 (17-59) U/L ALT 15 (7-56) U/L Alkaline Phosphatase 73 (38-126) U/L NT-Pro-B Natriuret Pep 77373 H (0-450) pg/mL Total Protein 5.5 L (5.8-8.3) g/dL Albumin 2.2 L (3.0-4.8) g/dL Globulin 3.4 gm/dL Albumin/Globulin Ratio 0.6 L (1.1-1.8) 09/06/18 Range/Units 06:19 WBC 7.1 D (4.5-11.0) 10^3/uL RBC 3.85 (3.5-6.1) 10^6/uL Hgb 10.3 L (14.0-18.0) g/dL Hct 34.1 L (42.0-52.0) % MCV 88.6 (80.0-105.0) fl MCH 26.8 (25.0-35.0) pg MCHC 30.2 L (31.0-37.0) g/dl RDW 14.9 H (11.5-14.5) % Plt Count 132 (120.0-450.0) 10^3/uL MPV 10.4 (7.0-11.0) fl Neut % (Auto) 66.8 (50.0-68.0) % Lymph % (Auto) 12.0 L (22.0-35.0) % Andrew % (Auto) 13.2 H (1.0-6.0) % Eos % (Auto) 7.9 H (1.5-5.0) % Baso % (Auto) 0.1 (0.0-3.0) % Lymph # (Auto) 0.9 L (1.2-3.4) Andrew # (Auto) 0.9 H (0.1-0.6) Eos # (Auto) 0.6 (0.0-0.7) Baso # (Auto) 0.01 (0.0-2.0) K/mm3 Absolute Neuts (auto) 4.71 (1.4-6.5) pCO2 (35-45) mm/Hg pO2 (80-100) mm/Hg HCO3 (21-28) mmol/L ABG pH (7.35-7.45) ABG Total CO2 (22-28) mmol.L ABG O2 Saturation (95-98) % ABG O2 Content (15-23) ML/dl ABG Base Excess (-2.0-3.0) mmol/L ABG Hemoglobin (11.7-17.4) g/dL ABG Carboxyhemoglobin (0.5-1.5) % POC ABG HHb (Measured) (0-5) % ABG Methemoglobin (0.0-3.0) % ABG O2 Capacity (16-24) mL/dl Hgb O2 Saturation (95.0-98.0) % FiO2 % Sodium (132-148) mmol/L Potassium (3.6-5.0) mmol/L Chloride (98-107) mmol/L Carbon Dioxide (21-33) mmol/L Anion Gap (10-20) BUN (7-21) mg/dL Creatinine (0.8-1.5) mg/dl Est GFR ( Amer) Est GFR (Non-Af Amer) Random Glucose (70-110) mg/dL Calcium (8.4-10.5) mg/dL Phosphorus (2.5-4.5) mg/dL Magnesium (1.7-2.2) mg/dL Total Bilirubin (0.2-1.3) mg/dL Direct Bilirubin (0.0-0.4) mg/dL AST (17-59) U/L ALT (7-56) U/L Alkaline Phosphatase (38-126) U/L NT-Pro-B Natriuret Pep (0-450) pg/mL Total Protein (5.8-8.3) g/dL Albumin (3.0-4.8) g/dL Globulin gm/dL Albumin/Globulin Ratio (1.1-1.8) Laboratory Results - last 24 hr 09/06/18 09/06/18 09/06/18 06:19 06:19 06:35 WBC 7.1 D RBC 3.85 Hgb 10.3 L Hct 34.1 L MCV 88.6 MCH 26.8 MCHC 30.2 L RDW 14.9 H Plt Count 132 MPV 10.4 Neut % (Auto) 66.8 Lymph % (Auto) 12.0 L Andrew % (Auto) 13.2 H Eos % (Auto) 7.9 H Baso % (Auto) 0.1 Lymph # (Auto) 0.9 L Andrew # (Auto) 0.9 H Eos # (Auto) 0.6 Baso # (Auto) 0.01 Absolute Neuts (auto) 4.71 pCO2 45 pO2 72.0 L HCO3 33.5 H ABG pH 7.48 H ABG Total CO2 34.9 H ABG O2 Saturation 97.1 ABG O2 Content 13.3 L ABG Base Excess 9.0 H ABG Hemoglobin 10.0 L ABG Carboxyhemoglobin 1.6 H POC ABG HHb (Measured) 2.8 ABG Methemoglobin 1.6 ABG O2 Capacity 13.7 L Hgb O2 Saturation 94.0 L FiO2 100.0 Sodium 139 Potassium 3.0 L Chloride 100 Carbon Dioxide 35 H Anion Gap 7 L BUN 62 H Creatinine 2.0 H Est GFR ( Amer) 40 Est GFR (Non-Af Amer) 33 Random Glucose 89 Calcium 8.0 L Phosphorus 3.9 Magnesium 2.1 Total Bilirubin 1.0 Direct Bilirubin 0.7 H AST 28 ALT 15 Alkaline Phosphatase 73 NT-Pro-B Natriuret Pep 18564 H Total Protein 5.5 L Albumin 2.2 L Globulin 3.4 Albumin/Globulin Ratio 0.6 L 09/06/18 14:10 WBC RBC Hgb Hct MCV MCH MCHC RDW Plt Count MPV Neut % (Auto) Lymph % (Auto) Andrew % (Auto) Eos % (Auto) Baso % (Auto) Lymph # (Auto) Andrew # (Auto) Eos # (Auto) Baso # (Auto) Absolute Neuts (auto) pCO2 pO2 HCO3 ABG pH ABG Total CO2 ABG O2 Saturation ABG O2 Content ABG Base Excess ABG Hemoglobin ABG Carboxyhemoglobin POC ABG HHb (Measured) ABG Methemoglobin ABG O2 Capacity Hgb O2 Saturation FiO2 Sodium 139 Potassium 3.5 L Chloride 102 Carbon Dioxide 35 H Anion Gap 6 L BUN 65 H Creatinine 1.8 H Est GFR ( Amer) 45 Est GFR (Non-Af Amer) 37 Random Glucose 80 Calcium 7.9 L Phosphorus Magnesium Total Bilirubin Direct Bilirubin AST ALT Alkaline Phosphatase NT-Pro-B Natriuret Pep Total Protein Albumin Globulin Albumin/Globulin Ratio Radiology Impressions: Radiology Impressions Chest X-Ray 09/06/18 06:00 IMPRESSION: There is complete opacification of the left hemithorax with mediastinal shift to the left. This is unchanged Chest X-Ray 09/06/18 10:55 IMPRESSION: There is improvement in the aeration of the left lung especially in the upper lobe. There is continued left lower lobe consolidation and a small left effusion Critical Care Progress Note - Nutrition Nutrition: Nutrition Category Date Time Status NPO Diet [DIET] Diets 09/06/18 Breakfast Ordered Addendum Addendum: 09/06/18 16:18 ICU Attending Addendum Patient seen and examined. Case reviewed on round with housestaff. Agree with resident note above with the following additions/exceptions 68M with hx of pmhx of chronic back pain and vertebral disc disease who admitted initially for b/l foot pain and back pain was being tx for foot infection however became progressively hypoxic with worsening bl effusions s/p intubation and right thoracentesis of 1800 transudate He is in shock unclear however likely cardiogenic vs septic. The BL nature of his effusions is consistent with cardiogenic however his LV function is not significantly low. he has more right heart failure extubated 09/03 Developed left lung white out on 09/05, likely mix of pleural effusion and mucus plug s/p bronch today (required intubation with 7.5 ETT) removal of mucus from [place] f/u cultures keep intubated overnight precedex for sedation abx as per ID would try and de-escalate if possible cont lasix cont nebs around the clock and steroids Rest of care as above in housestaff note Lynn Angel MD Pulmonary Critical Care Attending CC time 55 mins
[2018-09-06] MEDS: Dakin's Topical 0.25%-Half Strength (480 ml) TOP SCH (12:39)
[2018-09-06] MEDS: Mupirocin 2% Ointment 15 GM TUBE TOP SCH ×2 (12:39→19:17)
[2018-09-06] MEDS: MEROPENEM 500 MG in NS 500 MG/50 ML BAG IVPB SCH ×2 (12:44→21:10)
[2018-09-06] MEDS: POLYETHYLENE GLYCOL 3350 17 GM/Dose PACKET PO SCH (12:45)
[2018-09-06] MEDS: Nystatin 100,000 Units/gm Cream(15 gm) TOP SCH ×3 (12:46→19:18)
[2018-09-06] MEDS: Collagenase 250 Units/gm Ointment(30 gm) TOP SCH (12:48)
[2018-09-06] MEDS: Enoxaparin 40 mg Syringe SC SCH (12:54)
[2018-09-06] MEDS: Linezolid 600 mg in D5W 300 ml 600 MG/300 ML BAG IVPB SCH ×2 (12:55→22:15)
--- NOTE | 2018-09-06 13:01 | PN ---
DATE: 09/06/2018 CARDIOLOGY FOLLOWUP SUBJECTIVE: The patient remains off the ventilator. PHYSICAL EXAMINATION: VITAL SIGNS: Blood pressure 123/55 and heart rate is in 90's. NECK: Negative JVD. LUNGS: Decreased breath sounds, bilaterally. HEART: Regular, S1 and S2. EXTREMITIES: edema. LABORATORY DATA: Hemoglobin 10.3. Chemistries BUN and creatinine is 62 and 2.0, potassium is 3.0. Chest x-ray report reveals complete opacification of the left side with a right side of pleural effusion atelectasis. IMPRESSION: 1. Respiratory failure. 2. Heart pleural effusion. 3. Moderate to severe pulmonary hypertension. 4. Chronic obstructive pulmonary disease. 5. Good left ventricular function. 6. Calcification of the lungs. PLAN: Given these findings, bronchoscopy would be indicated at this time. Jero Salamanca MD
[2018-09-06] MEDS: Morphine 2 mg/ml ISec IVP PRN ×2 (13:57→21:15)
--- NOTE | 2018-09-06 14:32 | PN ---
DATE: 09/06/2018 SUBJECTIVE: The patient is in ICU bed 4. The patient overnight nurse's notes were reviewed. The patient was seen and evaluated by pulmonary. This morning recommended intubation and a bronchoscopy to follow. Overnight nurse's notes were reviewed. The patient required 100% FIO2 on BiPAP. OBJECTIVE: VITAL SIGNS: The patient's overall vital signs; T-max 97.7; pulse 80-90, sinus rhythm; blood pressure 123/55, most of the blood pressure systolic is around 120s and diastolic is around 50s, respiration 16-70, O2 sat 96%-100% on BiPAP 15/5, PEEP of 10 and FIO2 of 100%. HEENT: Head is normocephalic, atraumatic. Examination shows positive ET tube. NECK: No neck rigidity. CHEST: Kyphosis, decreased breath sounds, left more than the right. Positive rhonchi upper lung redman, right more than the left. CARDIOVASCULAR: S1, S2, regular rhythm. Questionable soft systolic murmur left sternal border, right second intercostal space, left second intercostal space. ABDOMEN: Soft. Positive bowel sound. No palpable pedal splenomegaly. GENITALIA: Male. RECTAL: Deferred. EXTREMITIES: Shows resolved lymphedema of the lower extremity, chronic skin changes and venous stasis changes of the lower extremity. Positive dystrophic toenails. Positive Multi Podus boot. NEUROLOGIC: Limited. The patient's gait examination the patient is bedridden. MUSCULOSKELETAL: As per the BMI. DIAGNOSTIC DATA: On 09/06/2018; WBC 7.1, hemoglobin/hematocrit 10.3/34.1, platelet 132. ABG on 100% FIO2, pH of 7.48, pCO2 45, pO2 72, bicarb 33.5, O2 sat 97% on FIO2 100%. Chemistry abnormal chemistry potassium 3.0, BUN, creatinine 62 and 2.0, proBNP 13,000, total protein 5.5, albumin 2.2. IMPRESSION: 1. Left lung complete opacification versus large pleural effusion versus atelectasis versus mucus plugging. 2. Ventilator dependent respiratory failure. 3. Normocytic anemia. 4. Relative thrombocytopenia. 5. Hypoxemia. 6. Hypoxic hypercarbic respiratory failure with severe respiratory acidosis. 7. Hypokalemia. 8. Acute kidney injury with acute renal failure. 9. Right-sided diastolic congestive heart failure with elevated ProBNP. 10. Mild protein malnutrition. 11. Mild hypoalbuminemia. 12. Pulmonary hypertension. 13. Gluteal, sacral decubitus ulceration posterior thigh decubitus ulceration and bilateral lower extremity venous stasis cellulitis and superficial wound infection and dermatitis. 14. Anemia. 15. Status post packed red blood cell transfusion. 16. Severe gait dysfunction and deconditioning. 17. Narcotic-dependent pain syndrome. PLAN: At this time, the patient has been recommended by pulmonary for intubation followed by bronchoscopy. The patient will be continued on Precedex drip. The patient will be continued on ventilator support for intubation. The patient will be continued on all the medications as per the MAR. The patient's IV antibiotic will be continues as per infectious disease recommendation. The patient will be continued on GI, DVT prophylaxis. The patient will be continued on all the medications as per the MAR of today. Overall prognosis is guarded to poor. Condition critical. Time spent in the management more than 35 minutes. Dictated and electronically signed, not read. Carlos Hernandez MD
[2018-09-06 14:36] LABS: CALCIUM 7.9 mg/dL (8.4-10.5)
--- NOTE | 2018-09-06 14:37 | RAD ---
Date of service: 09/06/2018 PROCEDURE: CHEST RADIOGRAPH, 1 VIEW HISTORY: sob/mucous plug COMPARISON: Earlier same day FINDINGS: LUNGS: There is improvement in the aeration of the left lung especially in the upper lobe. There is continued left lower lobe consolidation and a small left effusion PLEURA: Small left effusion CARDIOVASCULAR: No aortic atherosclerotic calcification present. Normal. OSSEOUS STRUCTURES: No significant abnormalities. VISUALIZED UPPER ABDOMEN: Normal. OTHER FINDINGS: Endotracheal tube in satisfactory position IMPRESSION: There is improvement in the aeration of the left lung especially in the upper lobe. There is continued left lower lobe consolidation and a small left effusion
--- NOTE | 2018-09-06 16:24 | PCM.PROC ---
Addendum Addendum: 09/06/18 16:21 Endotracheal Intubation Indication: Respiratory Distress / plan for bronchoscopy A time-out was completed verifying correct patient, procedure, site, positioning. The patient was placed in a flat position. Sedation was obtained using fentanyl 50 and additionally with Etomidate 20mg. The patient was easily ventilated using an ambu bag. The [employer] was used and inserted into the oropharynx at which time there was a Grade 2 view of the vocal cords. Cords were erythematous. I attempted to insert 8.0 ETT however was unable to advance past the cords given erythma and edema that was already present. Switch to 7.5-icelandic endotracheal tube whch was inserted and visualized going through the vocal cords. The stylette was removed. Colorimetric change was visualized on the CO2 meter. Breath sounds were heard in right lung field. The endotracheal tube was placed at 23 cm, measured at the teeth and confirmed placement with brochoscope. Estimated Blood Loss: minimal Awais Angel MD
--- NOTE | 2018-09-06 16:33 | PCM.PROC ---
Addendum Addendum: 09/06/18 16:28 ICU BRONCHOSCOPY PROCEDURE NOTE IN HOME AIDE: Awais Angel MD ANESTHETIC: Propofol drip Precedex drip 4mg versed 50mcg fentanyl x 2 (total 100mcg) PROCEDURE: Flexible bronchoscopy Intubation site: ETT 7.5 INDICATION: Pulmonary toilet/mucous plugging FINDINGS: Trachea: no mass or mucus Main wilton: Sharp Left Mainstem Bronchus: filled with mucus eventually suctioned BRENNAN:filled with thick green mucus eventually suctioned LLL:no mucus Right Mainstem Bronchus:no mucus or masses seen RUL:no mucus or masses seen Rt bronchus intermediusno mucus or masses seen RML:no mucus or masses seen RLL:no mucus or masses seen SPECIMENS: bronchial washings IMPRESSION: Bronchoscopy :BRENNAN mucus plug s/p removal PLAN: Sent C&S/gram Patient was very difficult to sedate. Required a large amount of sedatives as listed above. Continued to cough and be agitated during the procedure which limited my time and ability to properly examine the airways. Essentially I was able to only clean out the mucus plugging the left side but unable to perform complete inspection of airway tanner. Awais Angel MD
[2018-09-06] MEDS: Ammonium Lactate 12% Cream (140 g) TOP SCH (19:17)
[2018-09-07] MEDS: Acetylcysteine 20% Inhal Soln (4ml) IH SCH ×4 (01:40→19:30)
[2018-09-07] MEDS: Levalbuterol 0.63 MG/3 ML Inhal Soln UD IH SCH ×4 (01:40→20:00)
[2018-09-07 06:52] LABS: ARTERIAL BLOOD GAS HCO3 33.5 mmol/L (21-28); ARTERIAL BLOOD GAS HEMOGLOBIN 10.6 g/dL (11.7-17.4); ARTERIAL BLOOD GAS O2 CAPACITY 14.7 mL/dl (16-24); ARTERIAL BLOOD GAS O2 CONTENT 14.7 ML/dl (15-23); ARTERIAL BLOOD GAS O2 SAT 99.8 % (95-98); ARTERIAL BLOOD GAS PCO2 45 mm/Hg (35-45); ARTERIAL BLOOD GAS PH 7.48 (7.35-7.45); ARTERIAL BLOOD GAS TCO2 34.9 mmol.L (22-28)
[2018-09-07 07:15] LABS: BASO # 0.01 K/mm3 (0.0-2.0); BASO % 0.2 % (0.0-3.0); EOS # 0.2 (0.0-0.7); HEMOGLOBIN 9.9 g/dL (14.0-18.0); LYMPH % 15.9 % (22.0-35.0); MEAN CELL VOLUME 88.4 fl (80.0-105.0); MEAN CORPUSCULAR HEMOGLOBIN 27.3 pg (25.0-35.0); MEAN CORPUSCULAR HGB CONC 30.9 g/dl (31.0-37.0); MEAN PLATELET VOLUME 10.6 fl (7.0-11.0); MONO # 0.5 (0.1-0.6); MONO % 8.9 % (1.0-6.0); RBC 3.62 10^6/uL (3.5-6.1)
[2018-09-07 07:32] LABS: ALB/GLOB RATIO 0.7 (1.1-1.8); BILIRUBIN,DIRECT 0.5 mg/dL (0.0-0.4); CALCIUM 7.8 mg/dL (8.4-10.5)
[2018-09-07] MEDS: Budesonide 0.5 mg/2 ml Inhal Susp UD IH SCH ×2 (07:51→19:30)
--- NOTE | 2018-09-07 09:28 | RAD ---
Date of service: 09/07/2018 HISTORY: f/u COMPARISON: 09/06/2018 FINDINGS: LUNGS: No definite consolidation. PLEURA: Small right and moderate left pleural effusion. Evaluation is somewhat limited due to posterior dependent layering of pleural fluid in this supine/semi erect examination.. No significant change. No pneumothorax. CARDIOVASCULAR: No aortic atherosclerotic calcification present. Heart size cannot be adequately estimated. ET tube unchanged. Right IJ central venous catheter. No congestive change. OSSEOUS STRUCTURES: No significant abnormalities. VISUALIZED UPPER ABDOMEN: Normal. OTHER FINDINGS: None. IMPRESSION: Bilateral pleural effusion, left greater than right. No change. ETT and IJ central venous catheter unchanged.
[2018-09-07] MEDS: MEROPENEM 500 MG in NS 500 MG/50 ML BAG IVPB SCH ×2 (09:46→21:49)
[2018-09-07] MEDS: Linezolid 600 mg in D5W 300 ml 600 MG/300 ML BAG IVPB SCH (09:46)
--- NOTE | 2018-09-07 10:17 | PN ---
DATE: 09/07/2018(700am-800am) PULMONARY NOTE SUBJECTIVE: The patient remains on the ventilator. He is awake and alert this morning. PHYSICAL EXAMINATION: VITAL SIGNS: Temperature is 99.7, pulse is 109, respirations 20/20, blood pressure 158/69. HEENT: Normocephalic, atraumatic. No JVD. CARDIOVASCULAR: Systolic ejection murmur at the lower left sternal border. Positive S3 gallop. LUNGS: Improved breath sounds - left lung. Less rhonchi. No wheezing. GI: Abdomen is soft, nontender and nondistended. Bowel sounds are positive. EXTREMITIES: Mild edema. No cyanosis, no clubbing. Calves are nontender to palpation. SKIN: Positive decubitus ulcers. Bilateral lower extremity ulcers. NEUROLOGIC: Exam limited at the present time. PERTINENT LABORATORY DATA: Chest x-ray was done this morning and reviewed. The chest x-ray shows definite improvement with increased aeration noted to the left lung. The trachea is now midline. The left lower lobe remains somewhat opacified. Arterial blood gas was also done on PRVC 20, tidal volume 400, FIO2 100%, PEEP of 5. Results are: PH 7.48, pCO2 of 45, pO2 of 135. IMPRESSION: 1. Respiratory failure. 2. Recurrent atelectasis - left lung. 3. Congestive heart failure. 4. Bilateral pleural effusions. 5. Possible right lower lobe pneumonia. 6. Chronic obstructive pulmonary disease. 7. Renal insufficiency. PLAN: The patient is currently intubated. He is awake and alert. I did discuss the case with the night nurse at length. The night nurse stated the patient had an uneventful night. I did review the chest x-ray from this morning. The chest x-ray shows definite improvement with increased aeration noted to the left lung. As above, the left lower lobe is still somewhat opacified. I have also reviewed the arterial blood gas. The arterial blood gas has improved, but remains with a significant alveolar-arterial gradient. I have also discussed the case with the respiratory therapist. The respiratory therapist reports very thick secretions on suctioning. I did review the note by Dr. Angel. Dr. Angel did proceed with bronchoscopy yesterday. Given the reports from respiratory, along with a significant alveolar-arterial gradient, repeat bronchoscopy may be warranted. On physical exam, there is less bronchospasm noted. I will continue the current nebulizer treatments for now. I would continue with the antibiotic coverage as per Infectious Disease. Input by Cardiology (Dr. Salamanca) is also noted. The patient remains on intravenous Lasix. The patient remains critically ill with very guarded prognosis. I will discuss the above with the entire ICU team in the next few moments. I will also discuss the above with the attending physician later this morning. Mike Mahmood MD MTDD
--- NOTE | 2018-09-07 10:17 | PN ---
DATE: 09/07/2018 SUBJECTIVE: The patient is seen lying in the bed. The patient is intubated. OBJECTIVE: VITAL SIGNS: T-max 99.7. Telemetry shows sinus rhythm, sinus tachycardia in low 100s. Blood pressure 158/69, 144/66, 161/81, 148/67, respiration 20, O2 sat is 100% on a ventilator. The patient's PRBC. Tidal volume is 400, PEEP of 5, FIO2 80%, rate of 20. HEENT: Head is normocephalic, atraumatic. Eyes; shows pinkish pale conjunctivae. Anicteric sclerae. No oropharyngeal lesion. Positive ET tube noted. Pinkish pale conjunctivae. Anicteric sclerae. NECK: No jugular venous distention. CHEST: Kyphosis. underwent bronchoscopy yesterday with improved aeration of the left lung, x-ray was reviewed. ABDOMEN: Soft. Positive bowel sound. No palpable hepatosplenomegaly. CARDIOVASCULAR: S1, S2 regular rhythm. Positive systolic murmur left sternal border, right second intercostal space, left second intercostal space. LUNGS: Shows decreased breath sound at the bases, improved air entry on the left upper lung field. GENITALIA: Male. Positive Abrams catheter. EXTREMITIES: Shows multi-podus boot. Almost resolved lymphedema of the lower extremity. Positive dystrophic toenails. Gait examination is bedridden. NEUROLOGIC: Limited secondary to intubation. DIAGNOSTIC DATA: On 09/07/2018; hemoglobin/hematocrit 9.9/32.0, platelet 104,000. Granulocytes 71%. ABGs; on FIO2 100%, pH of 7.48, pCO2 45, pO2 135, bicarb 33, saturation of 99.8. Chemistries; CMP, LFTs from 09/07/2018; potassium 3.1, CO2 of 36, BUN down to 59, creatinine 1.9. BNP is down to 9830, total protein 4.9, albumin 2.0. Repeat blood urine and sputum, MRSA cultures negative since 08/28/2018. The patient received 1 unit of PRBC. IMPRESSION: 1. Severe sepsis. 2. Status post hypotensive hypovolemic septic shock with hypotension. 3. Status post hypothermia. 4. Low-grade fever at present. 5. Large left pleural effusion with complete left lung opacification with mediastinal shift. 6. Status post acute hypercapnic hypoxic respiratory failure with respiratory acidosis and metabolic alkalosis. 7. Sacral gluteal bilateral posterior thigh decubitus ulceration. 8. Morganella morganii, methicillin-resistant Staphylococcus aureus, Providencia rettgeri, Corynebacterium, Proteus penneri, bilateral lower extremity cellulitis. 9. Leukocytosis with granulocytosis. 10. Normocytic anemia. 11. Thrombocytopenia. 12. Granulocytosis. 13. Bandemia. 14. Hypercarbia. 15. Hypokalemia. 16. Prediabetes. 17. Acute diastolic right-sided congestive heart failure with elevated ProBNP. 18. Mild protein malnutrition. 19. Hypoalbuminemia. 20. Status post fiberoptic bronchoscopy with removal of the mucus plug from left main stem bronchus and left upper lobe bronchus with improved aeration of the left lung, especially the left upper lobe. 21. Left lower lobe consolidation and left pleural effusion. 22. Ventilator-dependent respiratory failure. 23. [id number] pulmonary hypertension. 24. Severe deconditioning and gait dysfunction. 25. Bilateral lower extremity cellulitis and venous stasis ulceration and dermatitis. 26. Dystrophic bilateral toenails and severe xerosis. 27. Acute kidney injury, acute tubular necrosis. PLAN: At this time, the patient's management was discussed with the pulmonary, Dr. Mahmood, plan today is another fiberoptic bronchoscopy to resolve persistent left lung collapse and atelectasis and possible removal of mucus plug. The patient has been ordered serial labs. Current consultation surgery, Infectious Disease, Cardiology, Interventional Radiology, Gastroenterology, Hematology, Nephrology, Pulmonary and Podiatry. Current medications; Mucomyst nebulizer 20% 4 mL, Precedex, Drisdol, bisacodyl, heparin 5000 subcu every 8 hours, Lasix 40 IV daily, Lopressor 50 every 8 hours, meropenem 500 every 12 hours, MiraLax, morphine 1 mg IV every 4 hours, Mycostatin, nicotine patch. The patient is on Levophed drip. The patient has been ordered potassium supplementation, Protonix 40 IV daily, Pulmicort nebulizer, Solu-Cortef 50 IV daily has been ordered by the ICU resident, Tylenol, Xopenex nebulizer, Zyvox is ordered that could be one of the causes of thrombocytopenia and I am awaiting further Infectious Disease evaluation recommendation regarding continuation of the Zyvox in the setting of thrombocytopenia. The patient's overall prognosis guarded to poor. Condition critical. The patient's social work program coordinator in contact with the patient's family. Time spent 35 minutes. Dictated and electronically signed, not read. Carlos Hernandez MD
--- NOTE | 2018-09-07 10:54 | CP.CCUPN ---
<Augusto Zimmerman - Last Filed: 09/07/18 12:33> CCU Subjective - Physician Review Subjective (Free Text): 09/07/18 10:58 Augusto Zimmerman, PGY-1 ICU Progress Note for Dr. Velázquez: Pt was seen and examined this AM by ICU team. Overnight the pt had no acute issues. Pt is on ventilator due to bronch yesterday. Today pt will be planned for another bronch. ROS limited due to pt being intubated. CCU Objective - Vital Signs / Intake & Output Vital Signs (Last 4 hours): Vital Signs BP 09/07/18 09:44 137/87 Intake and Output (Last 8hrs): Intake & Output 09/06/18 09/07/18 09/07/18 22:59 06:59 14:59 Intake Total 550.4 480.7 Output Total 680 600 Balance -129.6 -119.3 Intake: IV 550.4 480.7 Right Internal Jugular 550 antibiotic 350 precedex 130 Oral 0 Output: Urine 680 600 2-way Urethral 680 600 Other: # Bowel Movements 0 0 - Physical Exam Head: Positive for: Atraumatic, Normocephalic Pupils: Positive for: PERRL Extroacular Muscles: Positive for: EOMI Conjunctiva: Positive for: Normal Mouth: Positive for: Moist Mucous Membranes Neck: Positive for: Normal Range of Motion Respiratory/Chest: Positive for: Decreased Breath Sounds (worse on L than R), Other (Pt is intubated and ETT in place.). Negative for: Respiratory Distress, Accessory Muscle Use, Wheezes, Rales, Rhonchi Cardiovascular: Positive for: Regular Rate and Rhythm, Normal S1, S2. Negative for: Murmurs Abdomen: Positive for: Normal Bowel Sounds. Negative for: Tenderness, Distention, Peritoneal Signs Back: Positive for: Decubitus Ulcer (Sacral) Upper Extremity: Positive for: Normal Inspection. Negative for: Cyanosis, Edema Lower Extremity: Positive for: Normal Inspection, Normal ROM, Other (2 large skin decubiti on the posterior thighs bilaterally, both infected with surrounding erythema) Neurological: Positive for: Other (Pt is intubated) Skin: Positive for: Warm, Dry, Normal Color. Negative for: Rashes Psychiatric: Positive for: Other (Pt is intubated) - Medications Active Medications: Active Medications Generic Name Dose Route Start Last Admin Trade Name Freq PRN Reason Stop Dose Admin Acetaminophen 650 mg 08/24/18 00:04 09/03/18 13:54 Tylenol 325mg Tab PO 650 mg Q6 PRN Administration TEMP>=99.5F Acetaminophen 650 mg 08/24/18 00:04 Tylenol 650 Mg Supp RC Q6H PRN TEMP>=99.5F Acetylcysteine 4 ml 08/24/18 09:00 09/07/18 07:51 Acetylcysteine 20% IH 4 ml [id number] CASSY Administration Bisacodyl 10 mg 08/28/18 12:39 Dulcolax RC HS PRN Constipation Budesonide 0.5 mg 09/02/18 08:00 09/07/18 07:51 Pulmicort Respules IH 0.5 mg [id number] CASSY Administration Collagenase 0 gm 08/25/18 10:00 09/06/18 12:48 Santyl TOP 2 appl DAILY CASSY Administration Ergocalciferol 1 cap 08/26/18 15:00 09/02/18 15:26 Drisdol 50,000 Intl Units Cap PO 1 cap Q7D CASSY Administration Folic Acid 1 mg 08/26/18 15:00 09/06/18 12:43 Folic Acid PO Not Given DAILY CASSY Furosemide 40 mg 09/02/18 10:00 09/07/18 09:44 Lasix IVP 40 mg DAILY CASSY Administration Heparin Sodium (Porcine) 5,000 units 09/06/18 22:00 09/07/18 06:00 Heparin SC 5,000 units Q8 CASSY Administration Protocol Dexmedetomidine HCl 400 mcg in 100 mls @ 3.856 mls/hr 08/31/18 16:50 09/07/18 00:00 Precedex 400mcg/100ml IV 0.7 mcg/kg/hr .Q24H PRN 13.494 mls/hr Sedation Titration Protocol 0.2 MCG/KG/HR Meropenem/Sodium Chloride 500 mg in 50 mls @ 100 mls/hr 09/03/18 10:00 09/07/18 09:46 Merrem Iv 500 Mg/Ns 50 Ml IVPB 09/08/18 10:01 100 mls/hr Q12 CASSY Administration Protocol Propofol 1,000 mg in 100 mls @ 2.313 mls/hr 09/06/18 10:08 09/06/18 13:04 Diprivan IV 0 mcg/kg/min .Q24H PRN 0 mls/hr TITRATE PER MD ORDER Titration Protocol 5 MCG/KG/MIN Potassium Chloride 20 meq in 100 mls @ 50 mls/hr 09/07/18 07:45 09/07/18 09:45 Potassium Chloride 20 Meq/100 Ml IVPB 09/07/18 13:44 50 mls/hr Q2H CASSY Administration Acetaminophen 1,000 mg in 100 mls @ 400 mls/hr 09/07/18 08:58 09/07/18 09:42 Ofirmev IVPB 09/09/18 08:59 400 mls/hr Q6H PRN Administration Temperature Lactic Acid 0 ea 08/28/18 11:45 09/06/18 19:17 Lac-Hydrin 12% Cream (140 G) TOP Not Given DAILY CASSY Levalbuterol HCl 0.63 mg 09/04/18 20:00 09/07/18 07:51 Xopenex IH 0.63 mg [id number] CASSY Administration Metoprolol Tartrate 50 mg 08/30/18 09:00 08/31/18 10:03 Lopressor PO Not Given Q8H CASSY Morphine Sulfate 1 mg 09/03/18 15:46 09/06/18 21:15 Morphine IVP 1 mg Q4H PRN Administration Pain, severe (8-10) Mupirocin 0 gm 08/25/18 10:00 09/06/18 19:17 Bactroban Ointment TOP Not Given BID [facility] Nicotine 1 patch 08/24/18 10:00 09/07/18 09:43 Nicoderm Cq TD 1 patch DAILY CASSY Administration Nystatin 0 ea 09/03/18 18:00 09/06/18 19:18 Mycostatin Cream TOP Not Given TID CASSY Ondansetron HCl 4 mg 08/24/18 00:04 Zofran Inj IVP Q4H PRN Nausea/Vomiting Pantoprazole Sodium 40 mg 09/02/18 10:00 09/07/18 09:45 Protonix Inj IVP 40 mg DAILY CASSY Administration Polyethylene Glycol 17 gm 08/31/18 10:00 09/06/18 12:45 Miralax PO Not Given DAILY [facility] Sodium Hypochlorite 0 ml 09/01/18 13:00 09/06/18 12:39 Dakins Solution 0.25% TOP 1 applic DAILY CASSY Administration - Patient Studies Lab Studies: Lab Studies 09/07/18 09/07/18 09/07/18 Range/Units 06:30 06:00 06:00 WBC 6.0 (4.5-11.0) 10^3/uL RBC 3.62 (3.5-6.1) 10^6/uL Hgb 9.9 L (14.0-18.0) g/dL Hct 32.0 L (42.0-52.0) % MCV 88.4 (80.0-105.0) fl MCH 27.3 (25.0-35.0) pg MCHC 30.9 L (31.0-37.0) g/dl RDW 15.0 H (11.5-14.5) % Plt Count 104 L (120.0-450.0) 10^3/uL MPV 10.6 (7.0-11.0) fl Neut % (Auto) 71.0 H (50.0-68.0) % Lymph % (Auto) 15.9 L (22.0-35.0) % Ida % (Auto) 8.9 H (1.0-6.0) % Eos % (Auto) 4.0 (1.5-5.0) % Baso % (Auto) 0.2 (0.0-3.0) % Lymph # (Auto) 1.0 L (1.2-3.4) Ida # (Auto) 0.5 (0.1-0.6) Eos # (Auto) 0.2 (0.0-0.7) Baso # (Auto) 0.01 (0.0-2.0) K/mm3 Absolute Neuts (auto) 4.29 (1.4-6.5) pCO2 45 (35-45) mm/Hg pO2 135.0 H (80-100) mm/Hg HCO3 33.5 H (21-28) mmol/L ABG pH 7.48 H (7.35-7.45) ABG Total CO2 34.9 H (22-28) mmol.L ABG O2 Saturation 99.8 H (95-98) % ABG O2 Content 14.7 L (15-23) ML/dl ABG Base Excess 9.0 H (-2.0-3.0) mmol/L ABG Hemoglobin 10.6 L (11.7-17.4) g/dL ABG Carboxyhemoglobin 1.8 H (0.5-1.5) % POC ABG HHb (Measured) 0.2 (0-5) % ABG Methemoglobin 1.1 (0.0-3.0) % ABG O2 Capacity 14.7 L (16-24) mL/dl Hgb O2 Saturation 96.8 (95.0-98.0) % FiO2 100.0 % Sodium 139 (132-148) mmol/L Potassium 3.1 L (3.6-5.0) mmol/L Chloride 101 (98-107) mmol/L Carbon Dioxide 36 H (21-33) mmol/L Anion Gap 5 L (10-20) BUN 59 H (7-21) mg/dL Creatinine 1.9 H (0.8-1.5) mg/dl Est GFR ( Amer) 43 Est GFR (Non-Af Amer) 35 POC Glucose (mg/dL) (65-110) mg/dL Random Glucose 84 (70-110) mg/dL Calcium 7.8 L (8.4-10.5) mg/dL Phosphorus 3.1 (2.5-4.5) mg/dL Magnesium 1.9 (1.7-2.2) mg/dL Total Bilirubin 1.1 (0.2-1.3) mg/dL Direct Bilirubin 0.5 H (0.0-0.4) mg/dL AST 25 (17-59) U/L ALT 16 (7-56) U/L Alkaline Phosphatase 66 (38-126) U/L NT-Pro-B Natriuret Pep 9830 H (0-450) pg/mL Total Protein 4.9 L (5.8-8.3) g/dL Albumin 2.0 L (3.0-4.8) g/dL Globulin 2.9 gm/dL Albumin/Globulin Ratio 0.7 L (1.1-1.8) 09/06/18 09/06/18 Range/Units 21:45 14:10 WBC (4.5-11.0) 10^3/uL RBC (3.5-6.1) 10^6/uL Hgb (14.0-18.0) g/dL Hct (42.0-52.0) % MCV (80.0-105.0) fl MCH (25.0-35.0) pg MCHC (31.0-37.0) g/dl RDW (11.5-14.5) % Plt Count (120.0-450.0) 10^3/uL MPV (7.0-11.0) fl Neut % (Auto) (50.0-68.0) % Lymph % (Auto) (22.0-35.0) % Ida % (Auto) (1.0-6.0) % Eos % (Auto) (1.5-5.0) % Baso % (Auto) (0.0-3.0) % Lymph # (Auto) (1.2-3.4) Ida # (Auto) (0.1-0.6) Eos # (Auto) (0.0-0.7) Baso # (Auto) (0.0-2.0) K/mm3 Absolute Neuts (auto) (1.4-6.5) pCO2 (35-45) mm/Hg pO2 (80-100) mm/Hg HCO3 (21-28) mmol/L ABG pH (7.35-7.45) ABG Total CO2 (22-28) mmol.L ABG O2 Saturation (95-98) % ABG O2 Content (15-23) ML/dl ABG Base Excess (-2.0-3.0) mmol/L ABG Hemoglobin (11.7-17.4) g/dL ABG Carboxyhemoglobin (0.5-1.5) % POC ABG HHb (Measured) (0-5) % ABG Methemoglobin (0.0-3.0) % ABG O2 Capacity (16-24) mL/dl Hgb O2 Saturation (95.0-98.0) % FiO2 % Sodium 139 (132-148) mmol/L Potassium 3.5 L (3.6-5.0) mmol/L Chloride 102 (98-107) mmol/L Carbon Dioxide 35 H (21-33) mmol/L Anion Gap 6 L (10-20) BUN 65 H (7-21) mg/dL Creatinine 1.8 H (0.8-1.5) mg/dl Est GFR ( Amer) 45 Est GFR (Non-Af Amer) 37 POC Glucose (mg/dL) 81 (65-110) mg/dL Random Glucose 80 (70-110) mg/dL Calcium 7.9 L (8.4-10.5) mg/dL Phosphorus (2.5-4.5) mg/dL Magnesium (1.7-2.2) mg/dL Total Bilirubin (0.2-1.3) mg/dL Direct Bilirubin (0.0-0.4) mg/dL AST (17-59) U/L ALT (7-56) U/L Alkaline Phosphatase (38-126) U/L NT-Pro-B Natriuret Pep (0-450) pg/mL Total Protein (5.8-8.3) g/dL Albumin (3.0-4.8) g/dL Globulin gm/dL Albumin/Globulin Ratio (1.1-1.8) Laboratory Results - last 24 hr 09/06/18 09/06/18 09/07/18 14:10 21:45 06:00 WBC 6.0 RBC 3.62 Hgb 9.9 L Hct 32.0 L MCV 88.4 MCH 27.3 MCHC 30.9 L RDW 15.0 H Plt Count 104 L MPV 10.6 Neut % (Auto) 71.0 H Lymph % (Auto) 15.9 L Ida % (Auto) 8.9 H Eos % (Auto) 4.0 Baso % (Auto) 0.2 Lymph # (Auto) 1.0 L Ida # (Auto) 0.5 Eos # (Auto) 0.2 Baso # (Auto) 0.01 Absolute Neuts (auto) 4.29 pCO2 pO2 HCO3 ABG pH ABG Total CO2 ABG O2 Saturation ABG O2 Content ABG Base Excess ABG Hemoglobin ABG Carboxyhemoglobin POC ABG HHb (Measured) ABG Methemoglobin ABG O2 Capacity Hgb O2 Saturation FiO2 Sodium 139 Potassium 3.5 L Chloride 102 Carbon Dioxide 35 H Anion Gap 6 L BUN 65 H Creatinine 1.8 H Est GFR ( Amer) 45 Est GFR (Non-Af Amer) 37 POC Glucose (mg/dL) 81 Random Glucose 80 Calcium 7.9 L Phosphorus Magnesium Total Bilirubin Direct Bilirubin AST ALT Alkaline Phosphatase NT-Pro-B Natriuret Pep Total Protein Albumin Globulin Albumin/Globulin Ratio 09/07/18 09/07/18 06:00 06:30 WBC RBC Hgb Hct MCV MCH MCHC RDW Plt Count MPV Neut % (Auto) Lymph % (Auto) Ida % (Auto) Eos % (Auto) Baso % (Auto) Lymph # (Auto) Ida # (Auto) Eos # (Auto) Baso # (Auto) Absolute Neuts (auto) pCO2 45 pO2 135.0 H HCO3 33.5 H ABG pH 7.48 H ABG Total CO2 34.9 H ABG O2 Saturation 99.8 H ABG O2 Content 14.7 L ABG Base Excess 9.0 H ABG Hemoglobin 10.6 L ABG Carboxyhemoglobin 1.8 H POC ABG HHb (Measured) 0.2 ABG Methemoglobin 1.1 ABG O2 Capacity 14.7 L Hgb O2 Saturation 96.8 FiO2 100.0 Sodium 139 Potassium 3.1 L Chloride 101 Carbon Dioxide 36 H Anion Gap 5 L BUN 59 H Creatinine 1.9 H Est GFR ( Amer) 43 Est GFR (Non-Af Amer) 35 POC Glucose (mg/dL) Random Glucose 84 Calcium 7.8 L Phosphorus 3.1 Magnesium 1.9 Total Bilirubin 1.1 Direct Bilirubin 0.5 H AST 25 ALT 16 Alkaline Phosphatase 66 NT-Pro-B Natriuret Pep 9830 H Total Protein 4.9 L Albumin 2.0 L Globulin 2.9 Albumin/Globulin Ratio 0.7 L Radiology Impressions: Radiology Impressions Chest X-Ray 09/06/18 10:55 IMPRESSION: There is improvement in the aeration of the left lung especially in the upper lobe. There is continued left lower lobe consolidation and a small left effusion Chest X-Ray 09/07/18 06:00 IMPRESSION: Bilateral pleural effusion, left greater than right. No change. ETT and IJ central venous catheter unchanged. Critical Care Progress Note - Nutrition Nutrition: Nutrition Category Date Time Status NPO Diet [DIET] Diets 09/06/18 Breakfast Ordered Assessment/Plan - Assessment and Plan (Free Text) Assessment: Pt is a 68 yo M with pmhx of chronic back pain and vertebral disc disease who presented to the [facility] for complaints of b/l foot pain and back pain. ICU is consulted for management of pts acute hypercapnic respiratory failure and AMS. Pt had R thoracentesis done 08/31, pt was also intubated due to continued resp acidosis even on 100% FiO2 on Bipap. Pt was noted to have recurrence of L sided white out likely 2/2 mucous plug. Pt was intubated today and bronched and mutliple mucus plugs were removed. Repeat CXR showed clearing of whiteout in the LULs. Pt will be bronched again today, and will remain intubated. Plan: Neuro: - AOx3 Pulm: Acute hypercapnic resp failure leading to respiratory acidosis w/ chronic incomplete compensatory resp alkalosis: - Likely 2/2 CHF exacerbation vs PNA vs mucous plug. Unlikely PE due to r/o by CTA - Pt intubated and subsequently bronched for mucous plug removal, which was repeated today - CXR: remains about the same as yesterday, will repeat after bronch - Echo showed mildly imparied LV systolic dysfunction - BNP elevated - Abrams - Strict I/Os. Minimize positive fluid balance - Daily weight PNA vs CHF: - Procal elevated - CXR and echo resulted noted above - ID on board, recs appreciated: Merrem q8 and zyvox day 9 of combination tx - Repeat blood, urine and sputum cultures Cardio: Shock: Septic vs cardiogenic: - Pt weaned off of levophed and dobutamine - Continue lasix for diuresis for suspected cardiogenic shock - s/p Thoracentesis 08/31: 1700ml out - s/p bronch for mucous plug removal 09/06 & 09/07 - Tapered off stress dose steroids - Goal is MAP > 65 Nephro: Pre-renal Azotemia: - BUN/Cr = 59/1.9 - UA, urine sodium, urine cl, urine osms, urine protein and serum osms or dered - Will cont to monitor - Will give lasix, now due to fluid overload and respiratory compromise but will limit other nephrotoxic agents - Nephro consulted, recs appreciated - Monitor I/Os, try to maintain negative fluid balance. GI: - NPO - Protonix MSK: B/l foot cellulitis - MRSA (+): - continue multipodus boots - cultures growing MRSA - Continue IV Vanc. ID following - Pt is refusing MRI to r/o osteomyelitis ID: Stage 3 Sacral decub ulcer: - Pt refusing MRI - Santyl and local wound care - Cont Vancomycin per ID recs - Will discuss with ID to transition to oral abx in order to minimize positive fluid balance DVT PPx: Heparin/Protonix Case seen, examined and discussed with attending physician, Dr. Melania Zimmerman PGY1 <Joce Velázquez - Last Filed: 09/07/18 15:47> CCU Objective - Vital Signs / Intake & Output Intake and Output (Last 8hrs): Intake & Output 09/07/18 09/07/18 09/07/18 06:59 14:59 22:59 Intake Total 480.7 98.9 Output Total 600 Balance -119.3 98.9 Intake: IV 480.7 98.9 antibiotic 350 precedex 130 Oral 0 Output: Urine 600 2-way Urethral 600 Other: # Bowel Movements 0 - Medications Active Medications: Active Medications Generic Name Dose Route Start Last Admin Trade Name Freq PRN Reason Stop Dose Admin Acetaminophen 650 mg 08/24/18 00:04 09/03/18 13:54 Tylenol 325mg Tab PO 650 mg Q6 PRN Administration TEMP>=99.5F Acetaminophen 650 mg 08/24/18 00:04 Tylenol 650 Mg Supp RC Q6H PRN TEMP>=99.5F Acetylcysteine 4 ml 08/24/18 09:00 09/07/18 13:28 Acetylcysteine 20% IH 4 ml [id number] CASSY Administration Bisacodyl 10 mg 08/28/18 12:39 Dulcolax RC HS PRN Constipation Budesonide 0.5 mg 09/02/18 08:00 09/07/18 07:51 Pulmicort Respules IH 0.5 mg [id number] CASSY Administration Collagenase 0 gm 08/25/18 10:00 09/07/18 14:32 Santyl TOP 2 appl DAILY CASSY Administration Ergocalciferol 1 cap 08/26/18 15:00 09/02/18 15:26 Drisdol 50,000 Intl Units Cap PO 1 cap Q7D CASSY Administration Folic Acid 1 mg 08/26/18 15:00 09/07/18 14:31 Folic Acid PO Not Given DAILY CASSY Furosemide 40 mg 09/02/18 10:00 09/07/18 09:44 Lasix IVP 40 mg DAILY CASSY Administration Heparin Sodium (Porcine) 5,000 units 09/06/18 22:00 09/07/18 14:47 Heparin SC 5,000 units Q8 CASSY Administration Protocol Dexmedetomidine HCl 400 mcg in 100 mls @ 3.856 mls/hr 08/31/18 16:50 09/07/18 15:40 Precedex 400mcg/100ml IV 0.7 mcg/kg/hr .Q24H PRN 13.494 mls/hr Sedation Administration Protocol 0.2 MCG/KG/HR Meropenem/Sodium Chloride 500 mg in 50 mls @ 100 mls/hr 09/03/18 10:00 09/07/18 09:46 Merrem Iv 500 Mg/Ns 50 Ml IVPB 09/08/18 10:01 100 mls/hr Q12 CASSY Administration Protocol Acetaminophen 1,000 mg in 100 mls @ 400 mls/hr 09/07/18 08:58 09/07/18 09:42 Ofirmev IVPB 09/09/18 08:59 400 mls/hr Q6H PRN Administration Temperature Linezolid 600 mg in 300 mls @ 200 mls/hr 09/07/18 22:00 Zyvox 600mg/300ml D5w IVPB 09/14/18 22:01 Q12 CASSY Protocol Lactic Acid 0 ea 08/28/18 11:45 09/07/18 14:31 Lac-Hydrin 12% Cream (140 G) TOP 2 applic DAILY CASSY Administration Levalbuterol HCl 0.63 mg 09/04/18 20:00 09/07/18 13:28 Xopenex IH 0.63 mg [id number] CASSY Administration Metoprolol Tartrate 50 mg 08/30/18 09:00 08/31/18 10:03 Lopressor PO Not Given Q8H CASSY Morphine Sulfate 1 mg 09/03/18 15:46 09/06/18 21:15 Morphine IVP 1 mg Q4H PRN Administration Pain, severe (8-10) Nicotine 1 patch 08/24/18 10:00 09/07/18 09:43 Nicoderm Cq TD 1 patch DAILY CASSY Administration Nystatin 0 ea 09/03/18 18:00 09/07/18 14:35 Mycostatin Cream TOP 2 cre TID CASSY Administration Ondansetron HCl 4 mg 08/24/18 00:04 Zofran Inj IVP Q4H PRN Nausea/Vomiting Pantoprazole Sodium 40 mg 09/02/18 10:00 09/07/18 09:45 Protonix Inj IVP 40 mg DAILY CASSY Administration Polyethylene Glycol 17 gm 08/31/18 10:00 09/07/18 14:28 Miralax PO 17 gm DAILY CASSY Administration Sodium Hypochlorite 0 ml 09/01/18 13:00 09/07/18 14:30 Dakins Solution 0.25% TOP 2 applic DAILY CASSY Administration - Patient Studies Lab Studies: Lab Studies 09/07/18 09/07/18 09/07/18 Range/Units 08:50 06:30 06:00 WBC (4.5-11.0) 10^3/uL RBC (3.5-6.1) 10^6/uL Hgb (14.0-18.0) g/dL Hct (42.0-52.0) % MCV (80.0-105.0) fl MCH (25.0-35.0) pg MCHC (31.0-37.0) g/dl RDW (11.5-14.5) % Plt Count (120.0-450.0) 10^3/uL Manual Plt Count 125 (120-450) K/mm3 MPV (7.0-11.0) fl Neut % (Auto) (50.0-68.0) % Lymph % (Auto) (22.0-35.0) % Ida % (Auto) (1.0-6.0) % Eos % (Auto) (1.5-5.0) % Baso % (Auto) (0.0-3.0) % Lymph # (Auto) (1.2-3.4) Ida # (Auto) (0.1-0.6) Eos # (Auto) (0.0-0.7) Baso # (Auto) (0.0-2.0) K/mm3 Absolute Neuts (auto) (1.4-6.5) pCO2 45 (35-45) mm/Hg pO2 135.0 H (80-100) mm/Hg HCO3 33.5 H (21-28) mmol/L ABG pH 7.48 H (7.35-7.45) ABG Total CO2 34.9 H (22-28) mmol.L ABG O2 Saturation 99.8 H (95-98) % ABG O2 Content 14.7 L (15-23) ML/dl ABG Base Excess 9.0 H (-2.0-3.0) mmol/L ABG Hemoglobin 10.6 L (11.7-17.4) g/dL ABG Carboxyhemoglobin 1.8 H (0.5-1.5) % POC ABG HHb (Measured) 0.2 (0-5) % ABG Methemoglobin 1.1 (0.0-3.0) % ABG O2 Capacity 14.7 L (16-24) mL/dl Hgb O2 Saturation 96.8 (95.0-98.0) % FiO2 100.0 % Sodium 139 (132-148) mmol/L Potassium 3.1 L (3.6-5.0) mmol/L Chloride 101 (98-107) mmol/L Carbon Dioxide 36 H (21-33) mmol/L Anion Gap 5 L (10-20) BUN 59 H (7-21) mg/dL Creatinine 1.9 H (0.8-1.5) mg/dl Est GFR ( Amer) 43 Est GFR (Non-Af Amer) 35 POC Glucose (mg/dL) (65-110) mg/dL Random Glucose 84 (70-110) mg/dL Calcium 7.8 L (8.4-10.5) mg/dL Phosphorus 3.1 (2.5-4.5) mg/dL Magnesium 1.9 (1.7-2.2) mg/dL Total Bilirubin 1.1 (0.2-1.3) mg/dL Direct Bilirubin 0.5 H (0.0-0.4) mg/dL AST 25 (17-59) U/L ALT 16 (7-56) U/L Alkaline Phosphatase 66 (38-126) U/L NT-Pro-B Natriuret Pep 9830 H (0-450) pg/mL Total Protein 4.9 L (5.8-8.3) g/dL Albumin 2.0 L (3.0-4.8) g/dL Globulin 2.9 gm/dL Albumin/Globulin Ratio 0.7 L (1.1-1.8) 09/07/18 09/06/18 Range/Units 06:00 21:45 WBC 6.0 (4.5-11.0) 10^3/uL RBC 3.62 (3.5-6.1) 10^6/uL Hgb 9.9 L (14.0-18.0) g/dL Hct 32.0 L (42.0-52.0) % MCV 88.4 (80.0-105.0) fl MCH 27.3 (25.0-35.0) pg MCHC 30.9 L (31.0-37.0) g/dl RDW 15.0 H (11.5-14.5) % Plt Count 104 L (120.0-450.0) 10^3/uL Manual Plt Count (120-450) K/mm3 MPV 10.6 (7.0-11.0) fl Neut % (Auto) 71.0 H (50.0-68.0) % Lymph % (Auto) 15.9 L (22.0-35.0) % Ida % (Auto) 8.9 H (1.0-6.0) % Eos % (Auto) 4.0 (1.5-5.0) % Baso % (Auto) 0.2 (0.0-3.0) % Lymph # (Auto) 1.0 L (1.2-3.4) Ida # (Auto) 0.5 (0.1-0.6) Eos # (Auto) 0.2 (0.0-0.7) Baso # (Auto) 0.01 (0.0-2.0) K/mm3 Absolute Neuts (auto) 4.29 (1.4-6.5) pCO2 (35-45) mm/Hg pO2 (80-100) mm/Hg HCO3 (21-28) mmol/L ABG pH (7.35-7.45) ABG Total CO2 (22-28) mmol.L ABG O2 Saturation (95-98) % ABG O2 Content (15-23) ML/dl ABG Base Excess (-2.0-3.0) mmol/L ABG Hemoglobin (11.7-17.4) g/dL ABG Carboxyhemoglobin (0.5-1.5) % POC ABG HHb (Measured) (0-5) % ABG Methemoglobin (0.0-3.0) % ABG O2 Capacity (16-24) mL/dl Hgb O2 Saturation (95.0-98.0) % FiO2 % Sodium (132-148) mmol/L Potassium (3.6-5.0) mmol/L Chloride (98-107) mmol/L Carbon Dioxide (21-33) mmol/L Anion Gap (10-20) BUN (7-21) mg/dL Creatinine (0.8-1.5) mg/dl Est GFR ( Amer) Est GFR (Non-Af Amer) POC Glucose (mg/dL) 81 (65-110) mg/dL Random Glucose (70-110) mg/dL Calcium (8.4-10.5) mg/dL Phosphorus (2.5-4.5) mg/dL Magnesium (1.7-2.2) mg/dL Total Bilirubin (0.2-1.3) mg/dL Direct Bilirubin (0.0-0.4) mg/dL AST (17-59) U/L ALT (7-56) U/L Alkaline Phosphatase (38-126) U/L NT-Pro-B Natriuret Pep (0-450) pg/mL Total Protein (5.8-8.3) g/dL Albumin (3.0-4.8) g/dL Globulin gm/dL Albumin/Globulin Ratio (1.1-1.8) Laboratory Results - last 24 hr 09/06/18 09/07/18 09/07/18 21:45 06:00 06:00 WBC 6.0 RBC 3.62 Hgb 9.9 L Hct 32.0 L MCV 88.4 MCH 27.3 MCHC 30.9 L RDW 15.0 H Plt Count 104 L Manual Plt Count MPV 10.6 Neut % (Auto) 71.0 H Lymph % (Auto) 15.9 L Ida % (Auto) 8.9 H Eos % (Auto) 4.0 Baso % (Auto) 0.2 Lymph # (Auto) 1.0 L Ida # (Auto) 0.5 Eos # (Auto) 0.2 Baso # (Auto) 0.01 Absolute Neuts (auto) 4.29 pCO2 pO2 HCO3 ABG pH ABG Total CO2 ABG O2 Saturation ABG O2 Content ABG Base Excess ABG Hemoglobin ABG Carboxyhemoglobin POC ABG HHb (Measured) ABG Methemoglobin ABG O2 Capacity Hgb O2 Saturation FiO2 Sodium 139 Potassium 3.1 L Chloride 101 Carbon Dioxide 36 H Anion Gap 5 L BUN 59 H Creatinine 1.9 H Est GFR ( Amer) 43 Est GFR (Non-Af Amer) 35 POC Glucose (mg/dL) 81 Random Glucose 84 Calcium 7.8 L Phosphorus 3.1 Magnesium 1.9 Total Bilirubin 1.1 Direct Bilirubin 0.5 H AST 25 ALT 16 Alkaline Phosphatase 66 NT-Pro-B Natriuret Pep 9830 H Total Protein 4.9 L Albumin 2.0 L Globulin 2.9 Albumin/Globulin Ratio 0.7 L 09/07/18 09/07/18 06:30 08:50 WBC RBC Hgb Hct MCV MCH MCHC RDW Plt Count Manual Plt Count 125 MPV Neut % (Auto) Lymph % (Auto) Ida % (Auto) Eos % (Auto) Baso % (Auto) Lymph # (Auto) Ida # (Auto) Eos # (Auto) Baso # (Auto) Absolute Neuts (auto) pCO2 45 pO2 135.0 H HCO3 33.5 H ABG pH 7.48 H ABG Total CO2 34.9 H ABG O2 Saturation 99.8 H ABG O2 Content 14.7 L ABG Base Excess 9.0 H ABG Hemoglobin 10.6 L ABG Carboxyhemoglobin 1.8 H POC ABG HHb (Measured) 0.2 ABG Methemoglobin 1.1 ABG O2 Capacity 14.7 L Hgb O2 Saturation 96.8 FiO2 100.0 Sodium Potassium Chloride Carbon Dioxide Anion Gap BUN Creatinine Est GFR ( Amer) Est GFR (Non-Af Amer) POC Glucose (mg/dL) Random Glucose Calcium Phosphorus Magnesium Total Bilirubin Direct Bilirubin AST ALT Alkaline Phosphatase NT-Pro-B Natriuret Pep Total Protein Albumin Globulin Albumin/Globulin Ratio Radiology Impressions: Radiology Impressions Chest X-Ray 09/07/18 06:00 IMPRESSION: Bilateral pleural effusion, left greater than right. No change. ETT and IJ central venous catheter unchanged. Chest X-Ray 09/07/18 12:17 IMPRESSION: Bilateral pleural effusion, possibly slightly decreased on left side. Developing opacity in upper right lung. Recommend follow-up evaluation. Critical Care Progress Note - Nutrition Nutrition: Nutrition Category Date Time Status NPO Diet [DIET] Diets 09/06/18 Breakfast Ordered Assessment/Plan - Assessment and Plan (Free Text) Plan: Patient is 68yo male with PMHx of chronic back pain, admitted for foot pain, subequently went into resp failure, shock, requiring vasopressor support, intubation. Currently intubated, OFF vasopressor support Labs, imaging, chart reviewed CXR with improvement of opacification of L lung, s/p bronchoscopy x 2, today and yesterday R IJ in place Renal function has reached a plateau Pt s/p bronchoscopy today with BRENNAN wash and suction, subsequent improvement in LLL opacification on CXR Shock, resolved Pleural effusions Mucus plugging Respiratory failure CHF PNA Recommend: - cont with vent support, low tidal vol ventilation, daily sedation vacation, ABGs - broad spectrum abx as per ID, follow up cultures, - follow up cardiology - DC steroids - monitor LFTS - aggressive chest PT - Lasix 40mg IV BID - monitor Cr closely - renal follow up - GI ppx - DVT ppx - Monitor in MICU Critical care time 45 minutes
[2018-09-07] MEDS ORDERED: Midazolam 2 MG/2 ML VIAL IVP STA (11:52)
[2018-09-07] MEDS ORDERED: Propofol 10 mg/ml 1,000 MG/100 ML VIAL IV PRN (11:56)
[2018-09-07] MEDS ORDERED: Propofol 10 mg/ml Inj (20 ML) IVP ONE ×2 (11:59→14:41)
[2018-09-07] MEDS ORDERED: Propofol 10 mg/ml Inj (20 ML) ONE (11:59)
--- NOTE | 2018-09-07 12:12 | CP.PCM.PN ---
Subjective - Date & Time of Evaluation Date of Evaluation: 09/07/18 Time of Evaluation: 09:55 - Subjective Subjective: Continues to be on the ventilator but a little more awake today, has low grade temperatures, mucus plugs were removed yesterday from the left side during bronchoscopy. Objective - Vital Signs/Intake and Output Vital Signs (last 24 hours): Temp Pulse Resp BP Pulse Ox 99.7 F H 109 H 20 137/87 100 09/07/18 06:50 09/07/18 06:50 09/07/18 06:50 09/07/18 09:44 09/07/18 06:50 Intake and Output: 09/07/18 09/07/18 06:59 18:59 Intake Total 481.1 Output Total 600 Balance -118.9 - Medications Medications: Current Medications Acetaminophen (Tylenol 325mg Tab) 650 mg PO Q6 PRN PRN Reason: TEMP>=99.5F Last Admin: 09/03/18 13:54 Dose: 650 mg Acetaminophen (Tylenol 650 Mg Supp) 650 mg RC Q6H PRN PRN Reason: TEMP>=99.5F Acetylcysteine (Acetylcysteine 20%) 4 ml IH [id number] [facility] Last Admin: 09/07/18 07:51 Dose: 4 ml Bisacodyl (Dulcolax) 10 mg RC HS PRN PRN Reason: Constipation Budesonide (Pulmicort Respules) 0.5 mg IH [id number] [facility] Last Admin: 09/07/18 07:51 Dose: 0.5 mg Collagenase (Santyl) 0 gm TOP DAILY [facility] Last Admin: 09/06/18 12:48 Dose: 2 appl Ergocalciferol (Drisdol 50,000 Intl Units Cap) 1 cap PO Q7D [facility] Last Admin: 09/02/18 15:26 Dose: 1 cap Fentanyl (Fentanyl) 200 mcg IVP ONCE ONE Stop: 09/07/18 11:53 Folic Acid (Folic Acid) 1 mg PO DAILY [facility] Last Admin: 09/06/18 12:43 Dose: Not Given Furosemide (Lasix) 40 mg IVP DAILY [facility] Last Admin: 09/07/18 09:44 Dose: 40 mg Heparin Sodium (Porcine) (Heparin) 5,000 units SC Q8 [facility]; Protocol Last Admin: 09/07/18 06:00 Dose: 5,000 units Dexmedetomidine HCl (Precedex 400mcg/100ml) 400 mcg in 100 mls @ 3.856 mls/hr IV .Q24H PRN; Protocol PRN Reason: Sedation Last Titration: 09/07/18 00:00 Dose: 0.7 mcg/kg/hr, 13.494 mls/hr Meropenem/Sodium Chloride (Merrem Iv 500 Mg/Ns 50 Ml) 500 mg in 50 mls @ 100 mls/hr IVPB Q12 [facility]; Protocol Stop: 09/08/18 10:01 Last Admin: 09/07/18 09:46 Dose: 100 mls/hr Propofol (Diprivan) 1,000 mg in 100 mls @ 2.313 mls/hr IV .Q24H PRN; Protocol PRN Reason: TITRATE PER MD ORDER Last Titration: 09/06/18 13:04 Dose: 0 mcg/kg/min, 0 mls/hr Potassium Chloride (Potassium Chloride 20 Meq/100 Ml) 20 meq in 100 mls @ 50 mls/hr IVPB Q2H [facility] Stop: 09/07/18 13:44 Last Admin: 09/07/18 09:45 Dose: 50 mls/hr Acetaminophen (Ofirmev) 1,000 mg in 100 mls @ 400 mls/hr IVPB Q6H PRN PRN Reason: Temperature Stop: 09/09/18 08:59 Last Admin: 09/07/18 09:42 Dose: 400 mls/hr Propofol (Diprivan) 1,000 mg in 100 mls @ 2.063 mls/hr IV .Q24H PRN; Protocol PRN Reason: TITRATE PER MD ORDER Linezolid (Zyvox 600mg/300ml D5w) 600 mg in 300 mls @ 200 mls/hr IVPB Q12 [facility]; Protocol Stop: 09/14/18 22:01 Lactic Acid (Lac-Hydrin 12% Cream (140 G)) 0 ea TOP DAILY [facility] Last Admin: 09/06/18 19:17 Dose: Not Given Levalbuterol HCl (Xopenex) 0.63 mg IH [id number] [facility] Last Admin: 09/07/18 07:51 Dose: 0.63 mg Metoprolol Tartrate (Lopressor) 50 mg PO Q8H [facility] Last Admin: 08/31/18 10:03 Dose: Not Given Morphine Sulfate (Morphine) 1 mg IVP Q4H PRN PRN Reason: Pain, severe (8-10) Last Admin: 09/06/18 21:15 Dose: 1 mg Mupirocin (Bactroban Ointment) 0 gm TOP BID [facility] Last Admin: 09/06/18 19:17 Dose: Not Given Nicotine (Nicoderm Cq) 1 patch TD DAILY [facility] Last Admin: 09/07/18 09:43 Dose: 1 patch Nystatin (Mycostatin Cream) 0 ea TOP TID [facility] Last Admin: 09/06/18 19:18 Dose: Not Given Ondansetron HCl (Zofran Inj) 4 mg IVP Q4H PRN PRN Reason: Nausea/Vomiting Pantoprazole Sodium (Protonix Inj) 40 mg IVP DAILY [facility] Last Admin: 09/07/18 09:45 Dose: 40 mg Polyethylene Glycol (Miralax) 17 gm PO DAILY [facility] Last Admin: 09/06/18 12:45 Dose: Not Given Sodium Hypochlorite (Dakins Solution 0.25%) 0 ml TOP DAILY [facility] Last Admin: 09/06/18 12:39 Dose: 1 applic - Labs Labs: 09/07/18 06:00 09/07/18 06:00 PT 15.1 SECONDS (9.4-12.5) H 08/23/18 22:20 INR 1.36 08/23/18 22:20 APTT 27.9 Seconds (26.9-38.3) 08/23/18 22:20 - Constitutional Appears: Chronically Ill, Other (intubated) - Head Exam Head Exam: NORMAL INSPECTION - ENT Exam Additional comments: ET tube in place - Neck Exam Additional comments: right IJ TLC in place, site clean - Respiratory Exam Respiratory Exam: Decreased Breath Sounds - Cardiovascular Exam Cardiovascular Exam: +S1, +S2 - GI/Abdominal Exam GI & Abdominal Exam: Soft. absent: Tenderness Assessment and Plan - Assessment and Plan (Free Text) Plan: Assessment severe sepsis / S/P shock now again on ventilator-dependent respiratory failure and acute renal failure due to probable right lower lobe hospital-acquired pneumonia, with bilateral pleural effusions S/P right sided thoracentesis, now again with left hemithorax opacification R/O mucus plugging Infected left lower extremity wounds, R/O osteomyelitis, grew MRSA chronic back pain vertebral disc disease venous stasis dermatitis Plan continue Zyvox and will also continue Merrem (day 9 of combination) - follow up repeat blood cx, sputum cx (from sample taken from bronchoscopy yesterday); Zyvox will also cover the MRSA in the foot mucus plugs were noted and removed during bronchoscopy 09/06/2018 awaiting MRI of the foot but patient is critically ill currently patient had thoracentesis previously on the right and fluid looks to be transudative discussed with Dr. Lloyd - no surgery for the foot for now will continue to monitor clinically overall prognosis is poor
--- NOTE | 2018-09-07 12:35 | CP.PCM.PN ---
<Kulwant Mathews - Last Filed: 09/07/18 12:32> Subjective - Date & Time of Evaluation Date of Evaluation: 09/07/18 Time of Evaluation: 12:32 - Subjective Subjective: Podiatry progress note: Dr. Lloyd 68 y/o M patient seen and evaluated in ICU for b/l ulcerations. Patient still intubated and artificially ventilated. As per patient chart Patient didn't have overnight F/N/V or C. Objective - Vital Signs/Intake and Output Vital Signs (last 24 hours): Temp Pulse Resp BP Pulse Ox 99.7 F H 109 H 20 137/87 100 09/07/18 06:50 09/07/18 06:50 09/07/18 06:50 09/07/18 09:44 09/07/18 06:50 Intake and Output: 09/07/18 09/07/18 06:59 18:59 Intake Total 481.1 Output Total 600 Balance -118.9 - Medications Medications: Current Medications Acetaminophen (Tylenol 325mg Tab) 650 mg PO Q6 PRN PRN Reason: TEMP>=99.5F Last Admin: 09/03/18 13:54 Dose: 650 mg Acetaminophen (Tylenol 650 Mg Supp) 650 mg RC Q6H PRN PRN Reason: TEMP>=99.5F Acetylcysteine (Acetylcysteine 20%) 4 ml IH [id number] [facility] Last Admin: 09/07/18 07:51 Dose: 4 ml Bisacodyl (Dulcolax) 10 mg RC HS PRN PRN Reason: Constipation Budesonide (Pulmicort Respules) 0.5 mg IH [id number] [facility] Last Admin: 09/07/18 07:51 Dose: 0.5 mg Collagenase (Santyl) 0 gm TOP DAILY [facility] Last Admin: 09/06/18 12:48 Dose: 2 appl Ergocalciferol (Drisdol 50,000 Intl Units Cap) 1 cap PO Q7D [facility] Last Admin: 09/02/18 15:26 Dose: 1 cap Folic Acid (Folic Acid) 1 mg PO DAILY [facility] Last Admin: 09/06/18 12:43 Dose: Not Given Furosemide (Lasix) 40 mg IVP DAILY [facility] Last Admin: 09/07/18 09:44 Dose: 40 mg Heparin Sodium (Porcine) (Heparin) 5,000 units SC Q8 [facility]; Protocol Last Admin: 09/07/18 06:00 Dose: 5,000 units Dexmedetomidine HCl (Precedex 400mcg/100ml) 400 mcg in 100 mls @ 3.856 mls/hr IV .Q24H PRN; Protocol PRN Reason: Sedation Last Titration: 09/07/18 00:00 Dose: 0.7 mcg/kg/hr, 13.494 mls/hr Meropenem/Sodium Chloride (Merrem Iv 500 Mg/Ns 50 Ml) 500 mg in 50 mls @ 100 mls/hr IVPB Q12 [facility]; Protocol Stop: 09/08/18 10:01 Last Admin: 09/07/18 09:46 Dose: 100 mls/hr Propofol (Diprivan) 1,000 mg in 100 mls @ 2.313 mls/hr IV .Q24H PRN; Protocol PRN Reason: TITRATE PER MD ORDER Last Titration: 09/06/18 13:04 Dose: 0 mcg/kg/min, 0 mls/hr Potassium Chloride (Potassium Chloride 20 Meq/100 Ml) 20 meq in 100 mls @ 50 mls/hr IVPB Q2H [facility] Stop: 09/07/18 13:44 Last Admin: 09/07/18 09:45 Dose: 50 mls/hr Acetaminophen (Ofirmev) 1,000 mg in 100 mls @ 400 mls/hr IVPB Q6H PRN PRN Reason: Temperature Stop: 09/09/18 08:59 Last Admin: 09/07/18 09:42 Dose: 400 mls/hr Propofol (Diprivan) 1,000 mg in 100 mls @ 2.063 mls/hr IV .Q24H PRN; Protocol PRN Reason: TITRATE PER MD ORDER Linezolid (Zyvox 600mg/300ml D5w) 600 mg in 300 mls @ 200 mls/hr IVPB Q12 [facility]; Protocol Stop: 09/14/18 22:01 Lactic Acid (Lac-Hydrin 12% Cream (140 G)) 0 ea TOP DAILY [facility] Last Admin: 09/06/18 19:17 Dose: Not Given Levalbuterol HCl (Xopenex) 0.63 mg IH [id number] [facility] Last Admin: 09/07/18 07:51 Dose: 0.63 mg Metoprolol Tartrate (Lopressor) 50 mg PO Q8H [facility] Last Admin: 08/31/18 10:03 Dose: Not Given Morphine Sulfate (Morphine) 1 mg IVP Q4H PRN PRN Reason: Pain, severe (8-10) Last Admin: 09/06/18 21:15 Dose: 1 mg Mupirocin (Bactroban Ointment) 0 gm TOP BID [facility] Last Admin: 09/06/18 19:17 Dose: Not Given Nicotine (Nicoderm Cq) 1 patch TD DAILY [facility] Last Admin: 09/07/18 09:43 Dose: 1 patch Nystatin (Mycostatin Cream) 0 ea TOP TID [facility] Last Admin: 09/06/18 19:18 Dose: Not Given Ondansetron HCl (Zofran Inj) 4 mg IVP Q4H PRN PRN Reason: Nausea/Vomiting Pantoprazole Sodium (Protonix Inj) 40 mg IVP DAILY [facility] Last Admin: 09/07/18 09:45 Dose: 40 mg Polyethylene Glycol (Miralax) 17 gm PO DAILY [facility] Last Admin: 09/06/18 12:45 Dose: Not Given Sodium Hypochlorite (Dakins Solution 0.25%) 0 ml TOP DAILY [facility] Last Admin: 09/06/18 12:39 Dose: 1 applic - Labs Labs: 09/07/18 06:00 09/07/18 06:00 PT 15.1 SECONDS (9.4-12.5) H 08/23/18 22:20 INR 1.36 08/23/18 22:20 APTT 27.9 Seconds (26.9-38.3) 08/23/18 22:20 - Head Exam Head Exam: ATRAUMATIC - Extremities Exam Additional comments: B/L lE focused exam: VASC: DP/PT non-palpable, Temp gradient warm to warm bilaterally, Lymphedema noted bilaterally (improving), non-pitting. Cap refill < 3 sec to all digits. NEURO: grossly intact b/l. DERM: LEFT- 0.5 cm X 0.5 cm wound noted to submetatarsal 1 head, significantly improved, fibrotic base, no drainage, no tunneling, tracking or probe to bone, no malodor, multiple superficial wounds noted to the lateral aspect of the left ankle with 100% granular skin base, no drainage, no probe to bone, no tunneling or tracking, no malodor, chronic skin trophic changes secondary to long standing peripheral vascular disease, no signs of infection noted clinically RIGHT- Superficial wound noted to the lateral aspect of the leg at the site of previous chronic skin trophic changes secondary to long standing peripheral vascular disease, wound base 100% granular, Mild sanguineous drainage, mild malodor, no tunneling, tracking or probe to bone MSK: Muscle power and pain level couldn't be assessed as patient is sedated, intubated and ventilated. - Neurological Exam Additional comments: Patient is sedated, Intubated and ventilated Assessment and Plan - Assessment and Plan (Free Text) Assessment: 68 y/o M with bilateral lower extremity wounds, Non stagable. Plan: Patient seen and evaluated [facility], Labs and vitals reviewed; Afebrile, WBC 9.5 Bilateral foot x-ray ordered; No evidence of OM Patient refused CT and MRI before. ID on board Reccs appreciated. continue IV as per ID Left foot wound cultures: MRSA, Morg rosalinagnanii Wound cleansed with saline, dressed with bactroban, adaptic, ABD DSD No podiatric intervention planned at this time, in our clinical judgement no bridgett dence of OM, however, cannot be confirmed as patient has refused both MRI/CT Podiatry will continue to follow up the patient while in house <Kvng Lloyd - Last Filed: 09/08/18 07:11> Objective - Vital Signs/Intake and Output Vital Signs (last 24 hours): Temp Pulse Resp BP Pulse Ox 98.2 F 99 H 23 144/65 97 09/08/18 06:20 09/08/18 06:20 09/08/18 02:30 09/08/18 06:00 09/08/18 06:20 Intake and Output: 09/08/18 09/08/18 06:59 18:59 Intake Total 100 Output Total 400 Balance -300 - Medications Medications: Current Medications Acetaminophen (Tylenol 325mg Tab) 650 mg PO Q6 PRN PRN Reason: TEMP>=99.5F Last Admin: 09/03/18 13:54 Dose: 650 mg Acetylcysteine (Acetylcysteine 20%) 4 ml IH [id number] [facility] Last Admin: 09/08/18 02:00 Dose: 4 ml Bisacodyl (Dulcolax) 10 mg HS PRN PRN Reason: Constipation Budesonide (Pulmicort Respules) 0.5 mg IH [id number] [facility] Last Admin: 09/07/18 19:30 Dose: 0.5 mg Collagenase (Santyl) 0 gm TOP DAILY [facility] Last Admin: 09/07/18 14:32 Dose: 2 appl Ergocalciferol (Drisdol 50,000 Intl Units Cap) 1 cap PO Q7D [facility] Last Admin: 09/02/18 15:26 Dose: 1 cap Folic Acid (Folic Acid) 1 mg PO DAILY [facility] Last Admin: 09/07/18 14:31 Dose: Not Given Furosemide (Lasix) 40 mg IVP DAILY [facility] Last Admin: 09/07/18 09:44 Dose: 40 mg Heparin Sodium (Porcine) (Heparin) 5,000 units SC Q8 [facility]; Protocol Last Admin: 09/08/18 05:09 Dose: 5,000 units Dexmedetomidine HCl (Precedex 400mcg/100ml) 400 mcg in 100 mls @ 3.856 mls/hr IV .Q24H PRN; Protocol PRN Reason: Sedation Last Titration: 09/07/18 19:00 Dose: 0 mcg/kg/hr, 0 mls/hr Meropenem/Sodium Chloride (Merrem Iv 500 Mg/Ns 50 Ml) 500 mg in 50 mls @ 100 mls/hr IVPB Q12 [facility]; Protocol Stop: 09/08/18 10:01 Last Admin: 09/07/18 21:49 Dose: 100 mls/hr Acetaminophen (Ofirmev) 1,000 mg in 100 mls @ 400 mls/hr IVPB Q6H PRN PRN Reason: Temperature Stop: 09/09/18 08:59 Last Admin: 09/07/18 09:42 Dose: 400 mls/hr Linezolid (Zyvox 600mg/300ml D5w) 600 mg in 300 mls @ 200 mls/hr IVPB Q12 [facility]; Protocol Stop: 09/14/18 22:01 Last Admin: 09/07/18 21:04 Dose: 200 mls/hr Fentanyl Citrate (Fentanyl Citrate/Sodium Chloride 1 Mg/100 Ml) 1,000 mcg in 100 mls @ 2 mls/hr IV .Q24H PRN; Protocol PRN Reason: TITRATE PER MD ORDER Lactic Acid (Lac-Hydrin 12% Cream (140 G)) 0 ea TOP DAILY [facility] Last Admin: 09/07/18 14:31 Dose: 2 applic Levalbuterol HCl (Xopenex) 0.63 mg IH [id number] [facility] Last Admin: 09/08/18 02:01 Dose: 0.63 mg Metoprolol Tartrate (Lopressor) 5 mg IVP Q6 [facility] Last Admin: 09/08/18 05:10 Dose: 5 mg Morphine Sulfate (Morphine) 1 mg IVP Q4H PRN PRN Reason: Pain, severe (8-10) Last Admin: 09/07/18 22:40 Dose: 1 mg Nicotine (Nicoderm Cq) 1 patch TD DAILY [facility] Last Admin: 09/07/18 09:43 Dose: 1 patch Nystatin (Mycostatin Cream) 0 ea TOP TID [facility] Last Admin: 09/07/18 17:35 Dose: Not Given Ondansetron HCl (Zofran Inj) 4 mg IVP Q4H PRN PRN Reason: Nausea/Vomiting Pantoprazole Sodium (Protonix Inj) 40 mg IVP DAILY [facility] Last Admin: 09/07/18 09:45 Dose: 40 mg Polyethylene Glycol (Miralax) 17 gm PO DAILY [facility] Last Admin: 09/07/18 14:28 Dose: 17 gm Sodium Hypochlorite (Dakins Solution 0.25%) 0 ml TOP DAILY [facility] Last Admin: 09/07/18 14:30 Dose: 2 applic - Labs Labs: 09/07/18 06:00 09/07/18 06:00 PT 15.1 SECONDS (9.4-12.5) H 08/23/18 22:20 INR 1.36 08/23/18 22:20 APTT 27.9 Seconds (26.9-38.3) 08/23/18 22:20 Attending/Attestation - Attestation I have personally seen and examined this patient.: Yes I have fully participated in the care of the patient.: Yes I have reviewed all pertinent clinical information, including history, physical exam and plan: Yes
--- NOTE | 2018-09-07 13:25 | RAD ---
Date of service: 09/07/2018 HISTORY: sob COMPARISON: 09/07/2018 at 6:07 a.m. FINDINGS: LUNGS: Opacity in right upper lobe/apex, may represent developing pneumonia. Follow-up advised. No other abnormal pulmonary opacity appreciated. PLEURA: Bilateral small pleural effusion, slightly decreased on left side. This may be due to difference in patient positioning with the patient closer to upper right on the current examination but this is not certain. No pneumothorax. CARDIOVASCULAR: There is atherosclerotic calcification of the thoracic aorta. Endotracheal tube and right IJ central venous catheter are unchanged. No pulmonary vascular congestion. OSSEOUS STRUCTURES: No significant abnormalities. VISUALIZED UPPER ABDOMEN: Normal. OTHER FINDINGS: None. IMPRESSION: Bilateral pleural effusion, possibly slightly decreased on left side. Developing opacity in upper right lung. Recommend follow-up evaluation.
[2018-09-07] MEDS: POLYETHYLENE GLYCOL 3350 17 GM/Dose PACKET PO SCH (14:28)
[2018-09-07] MEDS: Dakin's Topical 0.25%-Half Strength (480 ml) TOP SCH (14:30)
[2018-09-07] MEDS: Ammonium Lactate 12% Cream (140 g) TOP SCH (14:31)
[2018-09-07] MEDS: Collagenase 250 Units/gm Ointment(30 gm) TOP SCH (14:32)
[2018-09-07] MEDS: Nystatin 100,000 Units/gm Cream(15 gm) TOP SCH ×3 (14:34→17:35)
[2018-09-07] MEDS: Dexmedetomidine 400mcg/100mL 400 MCG/100 ML BOTTLE IV PRN (15:40)
--- NOTE | 2018-09-07 15:51 | PCM.PROC ---
Procedures Attestation:: I certify that I have explained the specified Operation(s) or Procedure(s), risks, benefits and reasonable alternatives to the Patient and/or other person responsible. The opportunity was given to ask questions and all questions answered - Intubation Additional comments: BRONCHOSCOPY WIRELESS SALES REPRESENTATIVE:Joce Velázquez MD ANESTHETIC: Propofol 100mg Versed 4mg PROCEDURE: Flexible bronchoscopy Intubation site: ETT 7.5 INDICATION: Pulmonary toilet/mucous plugging FINDINGS: Trachea: no mass or mucus Main [place]: Sharp Left Mainstem Bronchus: sharp BRENNAN:filled with thick green mucus eventually suctioned LLL:no mucus Right Mainstem Bronchus:no mucus or masses seen RUL:no mucus or masses seen Rt bronchus intermediusno mucus or masses seen RML:no mucus or masses seen RLL:no mucus or masses seen SPECIMENS: Bronchial washings IMPRESSION: Bronchoscopy :BRENNAN mucus plug s/p removal, and wash
[2018-09-07] MEDS ORDERED: Digoxin 500 mcg/2ml (0.5 mg/2ml) Inj IVP ONE (17:04)
[2018-09-07 17:25] VITALS: PULSE 115
[2018-09-07] MEDS: Metoprolol 1 mg/ml Inj IVP SCH ×2 (18:04→18:35)
--- NOTE | 2018-09-07 20:57 | PN ---
DATE: 09/07/2018 CARDIOLOGY FOLLOWUP SUBJECTIVE: The patient remains on a ventilator. He is markedly tachycardic to 125 which is new. PHYSICAL EXAMINATION: NECK: Negative JVD. LUNGS: Decreased breath sounds. HEART: Reveals S1, S2. EXTREMITIES: Without edema. LABORATORY DATA: Hemoglobin is 9.9. Chemistries, potassium is 3.1, BUN and creatinine 69 and 1.9. IMPRESSION: 1. Marked tachycardia. 2. Renal insufficiency. 3. Respiratory failure. 4. Bilateral pleural effusions. PLAN: Given these findings, we will give a data card to differentiate between a sinus tachycardia versus an SVT. Jero Salamanca MD
[2018-09-07] MEDS ORDERED: Linezolid 600 mg in D5W 300 ml 600 MG/300 ML BAG IVPB SCH (22:00)
[2018-09-07] MEDS: Morphine 2 mg/ml ISec IVP PRN (22:40)
[2018-09-08] MEDS: Metoprolol 1 mg/ml Inj IVP SCH ×5 (00:01→18:44)
[2018-09-08] MEDS: Acetylcysteine 20% Inhal Soln (4ml) IH SCH ×4 (02:00→21:00)
[2018-09-08] MEDS: Levalbuterol 0.63 MG/3 ML Inhal Soln UD IH SCH ×5 (02:00→21:14)
[2018-09-08 05:45] LABS: ARTERIAL BLOOD GAS HCO3 33.5 mmol/L (21-28); ARTERIAL BLOOD GAS HEMOGLOBIN 10.3 g/dL (11.7-17.4); ARTERIAL BLOOD GAS O2 CAPACITY 14.1 mL/dl (16-24); ARTERIAL BLOOD GAS O2 CONTENT 13.7 ML/dl (15-23); ARTERIAL BLOOD GAS O2 SAT 97.2 % (95-98); ARTERIAL BLOOD GAS PCO2 45 mm/Hg (35-45); ARTERIAL BLOOD GAS PH 7.48 (7.35-7.45); ARTERIAL BLOOD GAS TCO2 34.9 mmol.L (22-28)
[2018-09-08 06:57] LABS: BASO # 0.02 K/mm3 (0.0-2.0); BASO % 0.2 % (0.0-3.0); EOS # 0.4 (0.0-0.7); EOS % 3.7 % (1.5-5.0); HEMOGLOBIN 10.2 g/dL (14.0-18.0); LYMPH % 10.4 % (22.0-35.0); MEAN CELL VOLUME 88.9 fl (80.0-105.0); MEAN CORPUSCULAR HEMOGLOBIN 26.8 pg (25.0-35.0); MEAN CORPUSCULAR HGB CONC 30.2 g/dl (31.0-37.0); MEAN PLATELET VOLUME 10.2 fl (7.0-11.0); MONO # 0.4 (0.1-0.6); MONO % 4.7 % (1.0-6.0); RBC 3.8 10^6/uL (3.5-6.1); RED CELL DISTRIBUTION WIDTH 15.3 % (11.5-14.5); WHITE BLOOD COUNT 9.4 10^3/uL (4.5-11.0)
[2018-09-08 07:13] LABS: ALB/GLOB RATIO 0.7 (1.1-1.8); ALBUMIN 2.2 g/dL (3.0-4.8); BILIRUBIN,DIRECT 0.2 mg/dL (0.0-0.4)
[2018-09-08] MEDS: Budesonide 0.5 mg/2 ml Inhal Susp UD IH SCH ×2 (08:25→21:00)
[2018-09-08] MEDS ORDERED: Metoprolol 1 mg/ml Inj IVP ONE (08:27)
[2018-09-08] MEDS ORDERED: Vancomycin 1.5 GM in Sodium Chloride 0.9% 500 ML IVPB ONE (08:39)
--- NOTE | 2018-09-08 09:45 | RAD ---
Date of service: 09/08/2018 HISTORY: f/u COMPARISON: 09/07/2018 FINDINGS: LUNGS: Right upper lobe interstitial infiltrate. PLEURA: Small bilateral pleural effusions CARDIOVASCULAR: Aortic calcification Normal cardiac size. No pulmonary vascular congestion. OSSEOUS STRUCTURES: No significant abnormalities. VISUALIZED UPPER ABDOMEN: Normal. OTHER FINDINGS: Endotracheal tube in satisfactory position IMPRESSION: Right upper lobe interstitial infiltrate and small bilateral pleural effusions
[2018-09-08 10:21] LABS: ARTERIAL BLOOD GAS HCO3 33.4 mmol/L (21-28); ARTERIAL BLOOD GAS HEMOGLOBIN 11.5 g/dL (11.7-17.4); ARTERIAL BLOOD GAS O2 CAPACITY 15.6 mL/dl (16-24); ARTERIAL BLOOD GAS O2 CONTENT 14.4 ML/dl (15-23); ARTERIAL BLOOD GAS O2 SAT 92.1 % (95-98); ARTERIAL BLOOD GAS PCO2 54 mm/Hg (35-45); ARTERIAL BLOOD GAS TCO2 35.1 mmol.L (22-28)
[2018-09-08] MEDS: Fentanyl 1000mcg/100ml NS 1,000 MCG/100 ML BAG IV PRN (10:43)
[2018-09-08] MEDS: Dexmedetomidine 400mcg/100mL 400 MCG/100 ML BOTTLE IV PRN ×4 (10:44→22:30)
--- NOTE | 2018-09-08 10:50 | CP.CCUPN ---
<Augusto Zimmerman - Last Filed: 09/08/18 12:34> CCU Subjective - Physician Review Subjective (Free Text): 09/07/18 10:58 Augusto Zimmerman, PGY-1 ICU Progress Note for Dr. Velázquez: Pt was seen and examined this AM by ICU team. Overnight the pt had no acute issues. Pt is on ventilator due to bronch yesterday. Today attempt will be made to wean the pt off of the tube. ROS limited due to pt being intubated. CCU Objective - Vital Signs / Intake & Output Vital Signs (Last 4 hours): Vital Signs Temp Pulse BP Pulse Ox 09/08/18 08:28 122 H 146/66 09/08/18 07:59 138/69 09/08/18 07:50 98.4 F 117 H 93 L 09/08/18 07:40 98.4 F 117 H 96 09/08/18 07:30 98.4 F 113 H 96 09/08/18 07:20 98.4 F 108 H 99 09/08/18 07:10 98.4 F 114 H 97 09/08/18 07:00 98.4 F 99 H 138/69 100 Intake and Output (Last 8hrs): Intake & Output 09/07/18 09/08/18 09/08/18 22:59 06:59 14:59 Intake Total 650 100 80 Output Total 550 400 Balance 100 -300 80 Intake: IV 650 100 80 antibiotic 500 100 precedex 130 Oral 0 Output: Urine 550 400 Urethral (Abrams) 550 400 Emesis 0 Other: # Bowel Movements 0 - Physical Exam Head: Positive for: Atraumatic, Normocephalic Pupils: Positive for: PERRL Extroacular Muscles: Positive for: EOMI Conjunctiva: Positive for: Normal Mouth: Positive for: Moist Mucous Membranes Neck: Positive for: Normal Range of Motion Respiratory/Chest: Positive for: Decreased Breath Sounds (worse on L than R), Other (Pt is intubated and ETT in place.). Negative for: Respiratory Distress, Accessory Muscle Use, Wheezes, Rales, Rhonchi Cardiovascular: Positive for: Regular Rate and Rhythm, Normal S1, S2. Negative for: Murmurs Abdomen: Positive for: Normal Bowel Sounds. Negative for: Tenderness, Distention, Peritoneal Signs Back: Positive for: Decubitus Ulcer (Sacral) Upper Extremity: Positive for: Normal Inspection. Negative for: Cyanosis, Edema Lower Extremity: Positive for: Normal Inspection, Normal ROM, Other (2 large skin decubiti on the posterior thighs bilaterally, both infected with surrounding erythema) Neurological: Positive for: Other (Pt is intubated) Skin: Positive for: Warm, Dry, Normal Color. Negative for: Rashes Psychiatric: Positive for: Other (Pt is intubated) - Medications Active Medications: Active Medications Generic Name Dose Route Start Last Admin Trade Name Freq PRN Reason Stop Dose Admin Acetaminophen 650 mg 08/24/18 00:04 09/03/18 13:54 Tylenol 325mg Tab PO 650 mg Q6 PRN Administration TEMP>=99.5F Acetylcysteine 4 ml 08/24/18 09:00 09/08/18 08:25 Acetylcysteine 20% IH 4 ml [id number] CASSY Administration Bisacodyl 10 mg 08/28/18 12:39 Dulcolax RC HS PRN Constipation Budesonide 0.5 mg 09/02/18 08:00 09/08/18 08:25 Pulmicort Respules IH 0.5 mg [id number] CASSY Administration Collagenase 0 gm 08/25/18 10:00 09/07/18 14:32 Santyl TOP 2 appl DAILY CASSY Administration Ergocalciferol 1 cap 08/26/18 15:00 09/02/18 15:26 Drisdol 50,000 Intl Units Cap PO 1 cap Q7D CASSY Administration Folic Acid 1 mg 08/26/18 15:00 09/07/18 14:31 Folic Acid PO Not Given DAILY CASSY Furosemide 40 mg 09/02/18 10:00 09/07/18 09:44 Lasix IVP 40 mg DAILY CASSY Administration Heparin Sodium (Porcine) 5,000 units 09/06/18 22:00 09/08/18 05:09 Heparin SC 5,000 units Q8 CASSY Administration Protocol Dexmedetomidine HCl 400 mcg in 100 mls @ 3.856 mls/hr 08/31/18 16:50 09/08/18 10:44 Precedex 400mcg/100ml IV 0.05 mcg/kg/hr .Q24H PRN 1 mls/hr Sedation Administration Protocol 0.2 MCG/KG/HR Acetaminophen 1,000 mg in 100 mls @ 400 mls/hr 09/07/18 08:58 09/07/18 09:42 Ofirmev IVPB 09/09/18 08:59 400 mls/hr Q6H PRN Administration Temperature Fentanyl Citrate 1,000 mcg in 100 mls @ 2 mls/hr 09/07/18 16:43 09/08/18 10:43 Fentanyl Citrate/Sodium Chloride 1 Mg/100 Ml IV 20 mcg/hr .Q24H PRN 2 mls/hr TITRATE PER MD ORDER Administration Protocol 20 MCG/HR Potassium Chloride 20 meq in 100 mls @ 50 mls/hr 09/08/18 08:00 09/08/18 08:29 Potassium Chloride 20 Meq/100 Ml IVPB 09/08/18 11:59 50 mls/hr Q2H CASSY Administration Vancomycin HCl 1.5 gm/ Sodium 500 mls @ 167 mls/hr 09/08/18 08:39 09/08/18 09:40 Chloride IVPB 09/08/18 11:38 167 mls/hr ONCE ONE Administration Protocol Lactic Acid 0 ea 08/28/18 11:45 09/07/18 14:31 Lac-Hydrin 12% Cream (140 G) TOP 2 applic DAILY CASSY Administration Levalbuterol HCl 0.63 mg 09/04/18 20:00 09/08/18 08:25 Xopenex IH 0.63 mg [id number] CASSY Administration Metoprolol Tartrate 5 mg 09/08/18 09:18 Lopressor IVP Q6 CASSY Morphine Sulfate 1 mg 09/03/18 15:46 09/07/18 22:40 Morphine IVP 1 mg Q4H PRN Administration Pain, severe (8-10) Nicotine 1 patch 08/24/18 10:00 09/08/18 09:42 Nicoderm Cq TD 1 patch DAILY CASSY Administration Nystatin 0 ea 09/03/18 18:00 09/07/18 17:35 Mycostatin Cream TOP Not Given TID CASSY Ondansetron HCl 4 mg 08/24/18 00:04 Zofran Inj IVP Q4H PRN Nausea/Vomiting Pantoprazole Sodium 40 mg 09/02/18 10:00 09/08/18 09:42 Protonix Inj IVP 40 mg DAILY CASSY Administration Polyethylene Glycol 17 gm 08/31/18 10:00 09/07/18 14:28 Miralax PO 17 gm DAILY CASSY Administration Sodium Hypochlorite 0 ml 09/01/18 13:00 09/07/18 14:30 Dakins Solution 0.25% TOP 2 applic DAILY CASSY Administration - Patient Studies Lab Studies: Lab Studies 09/08/18 09/08/18 09/08/18 Range/Units 10:10 07:00 06:00 WBC (4.5-11.0) 10^3/uL RBC (3.5-6.1) 10^6/uL Hgb (14.0-18.0) g/dL Hct (42.0-52.0) % MCV (80.0-105.0) fl MCH (25.0-35.0) pg MCHC (31.0-37.0) g/dl RDW (11.5-14.5) % Plt Count (120.0-450.0) 10^3/uL Manual Plt Count (120-450) K/mm3 MPV (7.0-11.0) fl Neut % (Auto) (50.0-68.0) % Lymph % (Auto) (22.0-35.0) % Gladwin % (Auto) (1.0-6.0) % Eos % (Auto) (1.5-5.0) % Baso % (Auto) (0.0-3.0) % Lymph # (Auto) (1.2-3.4) Gladwin # (Auto) (0.1-0.6) Eos # (Auto) (0.0-0.7) Baso # (Auto) (0.0-2.0) K/mm3 Absolute Neuts (auto) (1.4-6.5) Differential Comment See pathology report pCO2 54 H (35-45) mm/Hg pO2 58.0 L (80-100) mm/Hg HCO3 33.4 H (21-28) mmol/L ABG pH 7.40 (7.35-7.45) ABG Total CO2 35.1 H (22-28) mmol.L ABG O2 Saturation 92.1 L (95-98) % ABG O2 Content 14.4 L (15-23) ML/dl ABG Base Excess 7.2 H (-2.0-3.0) mmol/L ABG Hemoglobin 11.5 L (11.7-17.4) g/dL ABG Carboxyhemoglobin 2.2 H (0.5-1.5) % POC ABG HHb (Measured) 7.6 H (0-5) % ABG Methemoglobin 1.0 (0.0-3.0) % ABG O2 Capacity 15.6 L (16-24) mL/dl Hgb O2 Saturation 89.2 L (95.0-98.0) % FiO2 50.0 % Sodium 140 (132-148) mmol/L Potassium 3.5 L (3.6-5.0) mmol/L Chloride 101 (98-107) mmol/L Carbon Dioxide 35 H (21-33) mmol/L Anion Gap 8 L (10-20) BUN 54 H (7-21) mg/dL Creatinine 1.9 H (0.8-1.5) mg/dl Est GFR ( Amer) 43 Est GFR (Non-Af Amer) 35 Random Glucose 77 (70-110) mg/dL Calcium 8.0 L (8.4-10.5) mg/dL Phosphorus 3.2 (2.5-4.5) mg/dL Magnesium 2.0 (1.7-2.2) mg/dL Total Bilirubin 1.1 (0.2-1.3) mg/dL Direct Bilirubin 0.2 (0.0-0.4) mg/dL AST 23 (17-59) U/L ALT 15 (7-56) U/L Alkaline Phosphatase 77 (38-126) U/L NT-Pro-B Natriuret Pep 7140 H (0-450) pg/mL Total Protein 5.5 L (5.8-8.3) g/dL Albumin 2.2 L (3.0-4.8) g/dL Globulin 3.3 gm/dL Albumin/Globulin Ratio 0.7 L (1.1-1.8) 09/08/18 09/08/18 09/07/18 Range/Units 06:00 05:10 08:50 WBC 9.4 D (4.5-11.0) 10^3/uL RBC 3.80 (3.5-6.1) 10^6/uL Hgb 10.2 L (14.0-18.0) g/dL Hct 33.8 L (42.0-52.0) % MCV 88.9 (80.0-105.0) fl MCH 26.8 (25.0-35.0) pg MCHC 30.2 L (31.0-37.0) g/dl RDW 15.3 H (11.5-14.5) % Plt Count 98 L (120.0-450.0) 10^3/uL Manual Plt Count 101 L 125 (120-450) K/mm3 MPV 10.2 (7.0-11.0) fl Neut % (Auto) 81.0 H (50.0-68.0) % Lymph % (Auto) 10.4 L (22.0-35.0) % Gladwin % (Auto) 4.7 (1.0-6.0) % Eos % (Auto) 3.7 (1.5-5.0) % Baso % (Auto) 0.2 (0.0-3.0) % Lymph # (Auto) 1.0 L (1.2-3.4) Gladwin # (Auto) 0.4 (0.1-0.6) Eos # (Auto) 0.4 (0.0-0.7) Baso # (Auto) 0.02 (0.0-2.0) K/mm3 Absolute Neuts (auto) 7.60 H (1.4-6.5) Differential Comment pCO2 45 (35-45) mm/Hg pO2 75.0 L (80-100) mm/Hg HCO3 33.5 H (21-28) mmol/L ABG pH 7.48 H (7.35-7.45) ABG Total CO2 34.9 H (22-28) mmol.L ABG O2 Saturation 97.2 (95-98) % ABG O2 Content 13.7 L (15-23) ML/dl ABG Base Excess 9.0 H (-2.0-3.0) mmol/L ABG Hemoglobin 10.3 L (11.7-17.4) g/dL ABG Carboxyhemoglobin 2.0 H (0.5-1.5) % POC ABG HHb (Measured) 2.7 (0-5) % ABG Methemoglobin 1.2 (0.0-3.0) % ABG O2 Capacity 14.1 L (16-24) mL/dl Hgb O2 Saturation 94.1 L (95.0-98.0) % FiO2 60.0 % Sodium (132-148) mmol/L Potassium (3.6-5.0) mmol/L Chloride (98-107) mmol/L Carbon Dioxide (21-33) mmol/L Anion Gap (10-20) BUN (7-21) mg/dL Creatinine (0.8-1.5) mg/dl Est GFR ( Amer) Est GFR (Non-Af Amer) Random Glucose (70-110) mg/dL Calcium (8.4-10.5) mg/dL Phosphorus (2.5-4.5) mg/dL Magnesium (1.7-2.2) mg/dL Total Bilirubin (0.2-1.3) mg/dL Direct Bilirubin (0.0-0.4) mg/dL AST (17-59) U/L ALT (7-56) U/L Alkaline Phosphatase (38-126) U/L NT-Pro-B Natriuret Pep (0-450) pg/mL Total Protein (5.8-8.3) g/dL Albumin (3.0-4.8) g/dL Globulin gm/dL Albumin/Globulin Ratio (1.1-1.8) Laboratory Results - last 24 hr 09/07/18 09/08/18 09/08/18 08:50 05:10 06:00 WBC 9.4 D RBC 3.80 Hgb 10.2 L Hct 33.8 L MCV 88.9 MCH 26.8 MCHC 30.2 L RDW 15.3 H Plt Count 98 L Manual Plt Count 125 101 L MPV 10.2 Neut % (Auto) 81.0 H Lymph % (Auto) 10.4 L Gladwin % (Auto) 4.7 Eos % (Auto) 3.7 Baso % (Auto) 0.2 Lymph # (Auto) 1.0 L Gladwin # (Auto) 0.4 Eos # (Auto) 0.4 Baso # (Auto) 0.02 Absolute Neuts (auto) 7.60 H Differential Comment pCO2 45 pO2 75.0 L HCO3 33.5 H ABG pH 7.48 H ABG Total CO2 34.9 H ABG O2 Saturation 97.2 ABG O2 Content 13.7 L ABG Base Excess 9.0 H ABG Hemoglobin 10.3 L ABG Carboxyhemoglobin 2.0 H POC ABG HHb (Measured) 2.7 ABG Methemoglobin 1.2 ABG O2 Capacity 14.1 L Hgb O2 Saturation 94.1 L FiO2 60.0 Sodium Potassium Chloride Carbon Dioxide Anion Gap BUN Creatinine Est GFR ( Amer) Est GFR (Non-Af Amer) Random Glucose Calcium Phosphorus Magnesium Total Bilirubin Direct Bilirubin AST ALT Alkaline Phosphatase NT-Pro-B Natriuret Pep Total Protein Albumin Globulin Albumin/Globulin Ratio 09/08/18 09/08/18 09/08/18 06:00 07:00 10:10 WBC RBC Hgb Hct MCV MCH MCHC RDW Plt Count Manual Plt Count MPV Neut % (Auto) Lymph % (Auto) Gladwin % (Auto) Eos % (Auto) Baso % (Auto) Lymph # (Auto) Gladwin # (Auto) Eos # (Auto) Baso # (Auto) Absolute Neuts (auto) Differential Comment See pathology report pCO2 54 H pO2 58.0 L HCO3 33.4 H ABG pH 7.40 ABG Total CO2 35.1 H ABG O2 Saturation 92.1 L ABG O2 Content 14.4 L ABG Base Excess 7.2 H ABG Hemoglobin 11.5 L ABG Carboxyhemoglobin 2.2 H POC ABG HHb (Measured) 7.6 H ABG Methemoglobin 1.0 ABG O2 Capacity 15.6 L Hgb O2 Saturation 89.2 L FiO2 50.0 Sodium 140 Potassium 3.5 L Chloride 101 Carbon Dioxide 35 H Anion Gap 8 L BUN 54 H Creatinine 1.9 H Est GFR ( Amer) 43 Est GFR (Non-Af Amer) 35 Random Glucose 77 Calcium 8.0 L Phosphorus 3.2 Magnesium 2.0 Total Bilirubin 1.1 Direct Bilirubin 0.2 AST 23 ALT 15 Alkaline Phosphatase 77 NT-Pro-B Natriuret Pep 7140 H Total Protein 5.5 L Albumin 2.2 L Globulin 3.3 Albumin/Globulin Ratio 0.7 L Radiology Impressions: Radiology Impressions Chest X-Ray 09/07/18 12:17 IMPRESSION: Bilateral pleural effusion, possibly slightly decreased on left side. Developing opacity in upper right lung. Recommend follow-up evaluation. Chest X-Ray 09/08/18 06:00 IMPRESSION: Right upper lobe interstitial infiltrate and small bilateral pleural effusions EKG/Cardiology Studies: Cardiology / EKG Studies 09/08/18 06:00 EKG [ELECTROCARDIOGRAM] DAILY Comment: Reason For Exam: TACHYCARDIA 09/09/18 06:00 EKG [ELECTROCARDIOGRAM] DAILY Comment: Reason For Exam: TACHYCARDIA 09/10/18 06:00 EKG [ELECTROCARDIOGRAM] DAILY Comment: Reason For Exam: TACHYCARDIA Critical Care Progress Note - Nutrition Nutrition: Nutrition Category Date Time Status NPO Diet [DIET] Diets 09/06/18 Breakfast Ordered Assessment/Plan - Assessment and Plan (Free Text) Assessment: Pt is a 68 yo M with pmhx of chronic back pain and vertebral disc disease who presented to [facility] for complaints of b/l foot pain and back pain. ICU is consulted for management of pts acute hypercapnic respiratory failure and AMS. Pt had R thoracentesis done 08/31, pt was also intubated due to continued resp acidosis even on 100% FiO2 on Bipap. Pt was noted to have recurrence of L sided white out likely 2/2 mucous plug. Pt was intubated today and bronched and mutliple mucus plugs were removed. Repeat CXR showed clearing of whiteout in the LULs. Pt will be bronched again today, and will remain intubated. Plan: Neuro: - AOx3 - Placed back on precedex and fentanyl drip Pulm: Acute hypercapnic resp failure leading to respiratory acidosis w/ chronic incomplete compensatory resp alkalosis: - Likely 2/2 CHF exacerbation vs PNA vs mucous plug. Unlikely PE due to r/o by CTA - Pt intubated and subsequently bronched for mucous plug removal 09/06 & 09/07 - Will extubate tomorrow after weaning trial which was failed today - CXR: Improved L side of lung, with R side, hilar infiltrate - Echo showed mildly imparied LV systolic dysfunction - BNP elevated - Abrams - Strict I/Os. Minimize positive fluid balance - Daily weight PNA vs CHF: - Procal elevated - CXR and echo resulted noted above - ID on board, recs appreciated: Merrem q8 and zyvox day 10 of combination tx - Repeat blood, urine and sputum cultures Cardio: Shock: Septic vs cardiogenic: - Pt weaned off of levophed and dobutamine - Continue lasix for diuresis for suspected cardiogenic shock - s/p Thoracentesis 2/12: 1700ml out - s/p bronch for mucous plug removal 09/06 & 09/07 - Tapered off stress dose steroids - Goal is MAP > 65 Nephro: Pre-renal Azotemia: - BUN/Cr = 54/1.9 - UA, urine sodium, urine cl, urine osms, urine protein and serum osms ordered - Will cont to monitor - Will give lasix, now due to fluid overload and respiratory compromise but will limit other nephrotoxic agents - Nephro consulted, recs appreciated - Monitor I/Os, try to maintain negative fluid balance. GI: - NPO - Protonix MSK: B/l foot cellulitis - MRSA (+): - continue multipodus boots - cultures growing MRSA - Continue IV Vanc. ID following - Pt is refusing MRI to r/o osteomyelitis ID: Stage 3 Sacral decub ulcer: - Pt refusing MRI - Santyl and local wound care - Cont Vancomycin per ID recs - Will discuss with ID to transition to oral abx in order to minimize positive fluid balance DVT PPx: Heparin/Protonix Case seen, examined and discussed with attending physician, Dr. Melania Zimmerman PGY1 <Joce Velázquez - Last Filed: 09/08/18 13:33> CCU Objective - Vital Signs / Intake & Output Vital Signs (Last 4 hours): Vital Signs Pulse BP 09/08/18 12:13 86 102/52 L 09/08/18 11:48 136/66 Intake and Output (Last 8hrs): Intake & Output 09/07/18 09/08/18 09/08/18 22:59 06:59 14:59 Intake Total 650 100 80 Output Total 550 400 Balance 100 -300 80 Intake: IV 650 100 80 antibiotic 500 100 precedex 130 Oral 0 Output: Urine 550 400 Urethral (Abrams) 550 400 Emesis 0 Other: # Bowel Movements 0 - Medications Active Medications: Active Medications Generic Name Dose Route Start Last Admin Trade Name Freq PRN Reason Stop Dose Admin Acetaminophen 650 mg 08/24/18 00:04 09/03/18 13:54 Tylenol 325mg Tab PO 650 mg Q6 PRN Administration TEMP>=99.5F Acetylcysteine 4 ml 08/24/18 09:00 09/08/18 13:29 Acetylcysteine 20% IH 4 ml [id number] CASSY Administration Bisacodyl 10 mg 08/28/18 12:39 Dulcolax RC HS PRN Constipation Budesonide 0.5 mg 09/02/18 08:00 09/08/18 08:25 Pulmicort Respules IH 0.5 mg [id number] CASSY Administration Collagenase 0 gm 08/25/18 10:00 09/07/18 14:32 Santyl TOP 2 appl DAILY CASSY Administration Ergocalciferol 1 cap 08/26/18 15:00 09/02/18 15:26 Drisdol 50,000 Intl Units Cap PO 1 cap Q7D CASSY Administration Folic Acid 1 mg 08/26/18 15:00 09/07/18 14:31 Folic Acid PO Not Given DAILY CASSY Furosemide 40 mg 09/02/18 10:00 09/08/18 11:48 Lasix IVP 40 mg DAILY CASSY Administration Heparin Sodium (Porcine) 5,000 units 09/06/18 22:00 09/08/18 05:09 Heparin SC 5,000 units Q8 CASSY Administration Protocol Dexmedetomidine HCl 400 mcg in 100 mls @ 3.856 mls/hr 08/31/18 16:50 09/08/18 10:44 Precedex 400mcg/100ml IV 0.05 mcg/kg/hr .Q24H PRN 1 mls/hr Sedation Administration Protocol 0.2 MCG/KG/HR Acetaminophen 1,000 mg in 100 mls @ 400 mls/hr 09/07/18 08:58 09/07/18 09:42 Ofirmev IVPB 09/09/18 08:59 400 mls/hr Q6H PRN Administration Temperature Fentanyl Citrate 1,000 mcg in 100 mls @ 2 mls/hr 09/07/18 16:43 09/08/18 10:43 Fentanyl Citrate/Sodium Chloride 1 Mg/100 Ml IV 20 mcg/hr .Q24H PRN 2 mls/hr TITRATE PER MD ORDER Administration Protocol 20 MCG/HR Meropenem/Sodium Chloride 500 mg in 50 mls @ 100 mls/hr 09/08/18 22:00 Merrem Iv 500 Mg/Ns 50 Ml IVPB 09/13/18 22:01 Q12 CASSY Protocol Lactic Acid 0 ea 08/28/18 11:45 09/07/18 14:31 Lac-Hydrin 12% Cream (140 G) TOP 2 applic DAILY CASSY Administration Levalbuterol HCl 0.63 mg 09/04/18 20:00 09/08/18 13:29 Xopenex IH 0.63 mg [id number] CASSY Administration Metoprolol Tartrate 5 mg 09/08/18 09:18 09/08/18 12:13 Lopressor IVP Not Given Q6 CASSY Morphine Sulfate 1 mg 09/03/18 15:46 09/07/18 22:40 Morphine IVP 1 mg Q4H PRN Administration Pain, severe (8-10) Nicotine 1 patch 08/24/18 10:00 09/08/18 09:42 Nicoderm Cq TD 1 patch DAILY CASSY Administration Nystatin 0 ea 09/03/18 18:00 09/07/18 17:35 Mycostatin Cream TOP Not Given TID CASSY Ondansetron HCl 4 mg 08/24/18 00:04 Zofran Inj IVP Q4H PRN Nausea/Vomiting Pantoprazole Sodium 40 mg 09/02/18 10:00 09/08/18 09:42 Protonix Inj IVP 40 mg DAILY CASSY Administration Polyethylene Glycol 17 gm 08/31/18 10:00 09/07/18 14:28 Miralax PO 17 gm DAILY CASSY Administration Sodium Hypochlorite 0 ml 09/01/18 13:00 09/07/18 14:30 Dakins Solution 0.25% TOP 2 applic DAILY CASSY Administration - Patient Studies Lab Studies: Lab Studies 09/08/18 09/08/18 09/08/18 Range/Units 10:10 07:00 06:00 WBC (4.5-11.0) 10^3/uL RBC (3.5-6.1) 10^6/uL Hgb (14.0-18.0) g/dL Hct (42.0-52.0) % MCV (80.0-105.0) fl MCH (25.0-35.0) pg MCHC (31.0-37.0) g/dl RDW (11.5-14.5) % Plt Count (120.0-450.0) 10^3/uL Manual Plt Count (120-450) K/mm3 MPV (7.0-11.0) fl Neut % (Auto) (50.0-68.0) % Lymph % (Auto) (22.0-35.0) % Gladwin % (Auto) (1.0-6.0) % Eos % (Auto) (1.5-5.0) % Baso % (Auto) (0.0-3.0) % Lymph # (Auto) (1.2-3.4) Gladwin # (Auto) (0.1-0.6) Eos # (Auto) (0.0-0.7) Baso # (Auto) (0.0-2.0) K/mm3 Absolute Neuts (auto) (1.4-6.5) Differential Comment See pathology report pCO2 54 H (35-45) mm/Hg pO2 58.0 L (80-100) mm/Hg HCO3 33.4 H (21-28) mmol/L ABG pH 7.40 (7.35-7.45) ABG Total CO2 35.1 H (22-28) mmol.L ABG O2 Saturation 92.1 L (95-98) % ABG O2 Content 14.4 L (15-23) ML/dl ABG Base Excess 7.2 H (-2.0-3.0) mmol/L ABG Hemoglobin 11.5 L (11.7-17.4) g/dL ABG Carboxyhemoglobin 2.2 H (0.5-1.5) % POC ABG HHb (Measured) 7.6 H (0-5) % ABG Methemoglobin 1.0 (0.0-3.0) % ABG O2 Capacity 15.6 L (16-24) mL/dl Hgb O2 Saturation 89.2 L (95.0-98.0) % FiO2 50.0 % Sodium 140 (132-148) mmol/L Potassium 3.5 L (3.6-5.0) mmol/L Chloride 101 (98-107) mmol/L Carbon Dioxide 35 H (21-33) mmol/L Anion Gap 8 L (10-20) BUN 54 H (7-21) mg/dL Creatinine 1.9 H (0.8-1.5) mg/dl Est GFR ( Amer) 43 Est GFR (Non-Af Amer) 35 Random Glucose 77 (70-110) mg/dL Calcium 8.0 L (8.4-10.5) mg/dL Phosphorus 3.2 (2.5-4.5) mg/dL Magnesium 2.0 (1.7-2.2) mg/dL Total Bilirubin 1.1 (0.2-1.3) mg/dL Direct Bilirubin 0.2 (0.0-0.4) mg/dL AST 23 (17-59) U/L ALT 15 (7-56) U/L Alkaline Phosphatase 77 (38-126) U/L NT-Pro-B Natriuret Pep 7140 H (0-450) pg/mL Total Protein 5.5 L (5.8-8.3) g/dL Albumin 2.2 L (3.0-4.8) g/dL Globulin 3.3 gm/dL Albumin/Globulin Ratio 0.7 L (1.1-1.8) 09/08/18 09/08/18 Range/Units 06:00 05:10 WBC 9.4 D (4.5-11.0) 10^3/uL RBC 3.80 (3.5-6.1) 10^6/uL Hgb 10.2 L (14.0-18.0) g/dL Hct 33.8 L (42.0-52.0) % MCV 88.9 (80.0-105.0) fl MCH 26.8 (25.0-35.0) pg MCHC 30.2 L (31.0-37.0) g/dl RDW 15.3 H (11.5-14.5) % Plt Count 98 L (120.0-450.0) 10^3/uL Manual Plt Count 101 L (120-450) K/mm3 MPV 10.2 (7.0-11.0) fl Neut % (Auto) 81.0 H (50.0-68.0) % Lymph % (Auto) 10.4 L (22.0-35.0) % Gladwin % (Auto) 4.7 (1.0-6.0) % Eos % (Auto) 3.7 (1.5-5.0) % Baso % (Auto) 0.2 (0.0-3.0) % Lymph # (Auto) 1.0 L (1.2-3.4) Gladwin # (Auto) 0.4 (0.1-0.6) Eos # (Auto) 0.4 (0.0-0.7) Baso # (Auto) 0.02 (0.0-2.0) K/mm3 Absolute Neuts (auto) 7.60 H (1.4-6.5) Differential Comment pCO2 45 (35-45) mm/Hg pO2 75.0 L (80-100) mm/Hg HCO3 33.5 H (21-28) mmol/L ABG pH 7.48 H (7.35-7.45) ABG Total CO2 34.9 H (22-28) mmol.L ABG O2 Saturation 97.2 (95-98) % ABG O2 Content 13.7 L (15-23) ML/dl ABG Base Excess 9.0 H (-2.0-3.0) mmol/L ABG Hemoglobin 10.3 L (11.7-17.4) g/dL ABG Carboxyhemoglobin 2.0 H (0.5-1.5) % POC ABG HHb (Measured) 2.7 (0-5) % ABG Methemoglobin 1.2 (0.0-3.0) % ABG O2 Capacity 14.1 L (16-24) mL/dl Hgb O2 Saturation 94.1 L (95.0-98.0) % FiO2 60.0 % Sodium (132-148) mmol/L Potassium (3.6-5.0) mmol/L Chloride (98-107) mmol/L Carbon Dioxide (21-33) mmol/L Anion Gap (10-20) BUN (7-21) mg/dL Creatinine (0.8-1.5) mg/dl Est GFR ( Amer) Est GFR (Non-Af Amer) Random Glucose (70-110) mg/dL Calcium (8.4-10.5) mg/dL Phosphorus (2.5-4.5) mg/dL Magnesium (1.7-2.2) mg/dL Total Bilirubin (0.2-1.3) mg/dL Direct Bilirubin (0.0-0.4) mg/dL AST (17-59) U/L ALT (7-56) U/L Alkaline Phosphatase (38-126) U/L NT-Pro-B Natriuret Pep (0-450) pg/mL Total Protein (5.8-8.3) g/dL Albumin (3.0-4.8) g/dL Globulin gm/dL Albumin/Globulin Ratio (1.1-1.8) Laboratory Results - last 24 hr 09/08/18 09/08/18 09/08/18 05:10 06:00 06:00 WBC 9.4 D RBC 3.80 Hgb 10.2 L Hct 33.8 L MCV 88.9 MCH 26.8 MCHC 30.2 L RDW 15.3 H Plt Count 98 L Manual Plt Count 101 L MPV 10.2 Neut % (Auto) 81.0 H Lymph % (Auto) 10.4 L [place] % (Auto) 4.7 Eos % (Auto) 3.7 Baso % (Auto) 0.2 Lymph # (Auto) 1.0 L [place] # (Auto) 0.4 Eos # (Auto) 0.4 Baso # (Auto) 0.02 Absolute Neuts (auto) 7.60 H Differential Comment pCO2 45 pO2 75.0 L HCO3 33.5 H ABG pH 7.48 H ABG Total CO2 34.9 H ABG O2 Saturation 97.2 ABG O2 Content 13.7 L ABG Base Excess 9.0 H ABG Hemoglobin 10.3 L ABG Carboxyhemoglobin 2.0 H POC ABG HHb (Measured) 2.7 ABG Methemoglobin 1.2 ABG O2 Capacity 14.1 L Hgb O2 Saturation 94.1 L FiO2 60.0 Sodium 140 Potassium 3.5 L Chloride 101 Carbon Dioxide 35 H Anion Gap 8 L BUN 54 H Creatinine 1.9 H Est GFR ( Amer) 43 Est GFR (Non-Af Amer) 35 Random Glucose 77 Calcium 8.0 L Phosphorus 3.2 Magnesium 2.0 Total Bilirubin 1.1 Direct Bilirubin 0.2 AST 23 ALT 15 Alkaline Phosphatase 77 NT-Pro-B Natriuret Pep 7140 H Total Protein 5.5 L Albumin 2.2 L Globulin 3.3 Albumin/Globulin Ratio 0.7 L 09/08/18 09/08/18 07:00 10:10 WBC RBC Hgb Hct MCV MCH MCHC RDW Plt Count Manual Plt Count MPV Neut % (Auto) Lymph % (Auto) [place] % (Auto) Eos % (Auto) Baso % (Auto) Lymph # (Auto) [place] # (Auto) Eos # (Auto) Baso # (Auto) Absolute Neuts (auto) Differential Comment See pathology report pCO2 54 H pO2 58.0 L HCO3 33.4 H ABG pH 7.40 ABG Total CO2 35.1 H ABG O2 Saturation 92.1 L ABG O2 Content 14.4 L ABG Base Excess 7.2 H ABG Hemoglobin 11.5 L ABG Carboxyhemoglobin 2.2 H POC ABG HHb (Measured) 7.6 H ABG Methemoglobin 1.0 ABG O2 Capacity 15.6 L Hgb O2 Saturation 89.2 L FiO2 50.0 Sodium Potassium Chloride Carbon Dioxide Anion Gap BUN Creatinine Est GFR ( Amer) Est GFR (Non-Af Amer) Random Glucose Calcium Phosphorus Magnesium Total Bilirubin Direct Bilirubin AST ALT Alkaline Phosphatase NT-Pro-B Natriuret Pep Total Protein Albumin Globulin Albumin/Globulin Ratio Radiology Impressions: Radiology Impressions Chest X-Ray 09/08/18 06:00 IMPRESSION: Right upper lobe interstitial infiltrate and small bilateral pleural effusions Chest X-Ray 09/08/18 10:59 IMPRESSION: The nasogastric tube is in satisfactory position. EKG/Cardiology Studies: Cardiology / EKG Studies 09/08/18 06:00 EKG [ELECTROCARDIOGRAM] DAILY Comment: Reason For Exam: TACHYCARDIA 09/09/18 06:00 EKG [ELECTROCARDIOGRAM] DAILY Comment: Reason For Exam: TACHYCARDIA 09/10/18 06:00 EKG [ELECTROCARDIOGRAM] DAILY Comment: Reason For Exam: TACHYCARDIA Critical Care Progress Note - Nutrition Nutrition: Nutrition Category Date Time Status NPO Diet [DIET] Diets 09/06/18 Breakfast Ordered Assessment/Plan - Assessment and Plan (Free Text) Plan: Patient is 68yo male with PMHx of chronic back pain, admitted for foot pain, subequently went into resp failure, shock, requiring vasopressor support, intub ation. Currently intubated, OFF vasopressor support Labs, imaging, chart reviewed CXR with improvement of opacification of L lung, s/p bronchoscopy x 2 R IJ in place Renal function has reached a plateau Pt s/p bronchoscopy today with BRENNAN wash and suction, subsequent improvement in LLL opacification on CXR Today patient was placed on pressure support, ABG obtained, inadaquate oxygenation, failed PS, RSBI 120s, will attempt tomorrow again Shock, resolved Pleural effusions Mucus plugging Respiratory failure CHF PNA Recommend: - cont with vent support, low tidal vol ventilation, daily sedation vacation, ABGs, CPAP trials - broad spectrum abx as per ID, follow up cultures, - follow up cardiology - monitor LFTS - aggressive chest PT - Lopressor 25mg BID - Lasix 40mg IV BID - Feeds - monitor Cr closely - renal follow up - GI ppx - DVT ppx - Monitor in MICU Critical care time 35 minutes
--- NOTE | 2018-09-08 11:14 | PN ---
DATE: 09/08/2018(655am-750am) SUBJECTIVE: The patient remains on the ventilator. He is awake and alert. He appears comfortable. PHYSICAL EXAMINATION: VITAL SIGNS: Temperature 98.2, pulse 99, respiratory rate 20/20, blood pressure 144/65. HEENT: Normocephalic, atraumatic. NECK: No JVD. CARDIOVASCULAR: Systolic ejection murmur at the lower left sternal border. Positive S3 gallop. LUNGS: Improved breath sounds left lung. Mild bilateral rhonchi. No wheezing. EXTREMITIES: Mild edema. No cyanosis. No clubbing. Calves are nontender to palpation. GI: Abdomen is soft, nontender and nondistended. Bowel sounds are positive. SKIN: Positive decubitus ulcers. Positive bilateral lower extremity ulcers. NEUROLOGIC: Exam limited at the present time. PERTINENT LABORATORY DATA: Chest x-ray was done this morning and reviewed. The left lung appears significantly better with only a small left pleural effusion remaining. However, the right lung appears to have a new diffuse infiltrate. Arterial blood gas was done on PRVC 20, tidal volume 400, FiO2 60%, 5 of PEEP. Results are: pH 7.48, pCO2 of 45, pO2 of 75. IMPRESSION: 1. Respiratory failure. 2. Recurrent atelectasis - left lung. 3. Congestive heart failure. 4. Bilateral pleural effusions. 5. Possible right lung pneumonia. 6. Chronic obstructive pulmonary disease. 7. Renal insufficiency. PLAN: The patient remains intubated. He is awake and alert. He appears comfortable on the ventilator. I did discuss the case with the night nurse at length. The night nurse stated that the patient had an uneventful night. I did review the chest x-ray from this morning. Findings are noted. Again, the left lung looks significantly improved. However, the right lung looks worse. The patient is status post two bronchoscopies. Results are pending. I have also reviewed the arterial blood gas. The arterial blood gas remains with a moderate increase in the alveolar-arterial gradient. I would continue with the antibiotic coverage as per Infectious Disease. Temperatures have resolved. The leukocytosis has resolved. Input by Cardiology is also noted. The patient remains on intravenous Lasix. The patient remains critically ill, but is certainly improved - from a few days ago. I will discuss the above with the entire ICU team in the next few moments. I will discuss the above with the attending physician later this morning. Mike Mahmood MD [facility]
--- NOTE | 2018-09-08 11:29 | CP.PCM.PN ---
<Kulwant Mathews - Last Filed: 09/08/18 11:27> Subjective - Date & Time of Evaluation Date of Evaluation: 09/08/18 Time of Evaluation: 11:28 - Subjective Subjective: Podiatry progress note: Dr. Lloyd 68 y/o M patient seen and evaluated in ICU for b/l ulcerations. Patient still intubated and artificially ventilated. Patient was awake and communicating through head movement. As per patient chart Patient didn't have overnight F/N/V or C. Objective - Vital Signs/Intake and Output Vital Signs (last 24 hours): Temp Pulse Resp BP Pulse Ox 98.4 F 122 H 23 146/66 93 L 09/08/18 07:50 09/08/18 08:28 09/08/18 02:30 09/08/18 08:28 09/08/18 07:50 Intake and Output: 09/08/18 09/08/18 06:59 18:59 Intake Total 100 80 Output Total 400 Balance -300 80 - Medications Medications: Current Medications Acetaminophen (Tylenol 325mg Tab) 650 mg PO Q6 PRN PRN Reason: TEMP>=99.5F Last Admin: 09/03/18 13:54 Dose: 650 mg Acetylcysteine (Acetylcysteine 20%) 4 ml IH [id number] [facility] Last Admin: 09/08/18 08:25 Dose: 4 ml Bisacodyl (Dulcolax) 10 mg RC HS PRN PRN Reason: Constipation Budesonide (Pulmicort Respules) 0.5 mg IH [id number] [facility] Last Admin: 09/08/18 08:25 Dose: 0.5 mg Collagenase (Santyl) 0 gm TOP DAILY [facility] Last Admin: 09/07/18 14:32 Dose: 2 appl Ergocalciferol (Drisdol 50,000 Intl Units Cap) 1 cap PO Q7D [facility] Last Admin: 09/02/18 15:26 Dose: 1 cap Folic Acid (Folic Acid) 1 mg PO DAILY [facility] Last Admin: 09/07/18 14:31 Dose: Not Given Furosemide (Lasix) 40 mg IVP DAILY [facility] Last Admin: 09/07/18 09:44 Dose: 40 mg Heparin Sodium (Porcine) (Heparin) 5,000 units SC Q8 [facility]; Protocol Last Admin: 09/08/18 05:09 Dose: 5,000 units Dexmedetomidine HCl (Precedex 400mcg/100ml) 400 mcg in 100 mls @ 3.856 mls/hr IV .Q24H PRN; Protocol PRN Reason: Sedation Last Admin: 09/08/18 10:44 Dose: 0.05 mcg/kg/hr, 1 mls/hr Acetaminophen (Ofirmev) 1,000 mg in 100 mls @ 400 mls/hr IVPB Q6H PRN PRN Reason: Temperature Stop: 09/09/18 08:59 Last Admin: 09/07/18 09:42 Dose: 400 mls/hr Fentanyl Citrate (Fentanyl Citrate/Sodium Chloride 1 Mg/100 Ml) 1,000 mcg in 100 mls @ 2 mls/hr IV .Q24H PRN; Protocol PRN Reason: TITRATE PER MD ORDER Last Admin: 09/08/18 10:43 Dose: 20 mcg/hr, 2 mls/hr Potassium Chloride (Potassium Chloride 20 Meq/100 Ml) 20 meq in 100 mls @ 50 mls/hr IVPB Q2H [facility] Stop: 09/08/18 11:59 Last Admin: 09/08/18 08:29 Dose: 50 mls/hr Vancomycin HCl 1.5 gm/ Sodium (Chloride) 500 mls @ 167 mls/hr IVPB ONCE ONE; Protocol Stop: 09/08/18 11:38 Last Admin: 09/08/18 09:40 Dose: 167 mls/hr Lactic Acid (Lac-Hydrin 12% Cream (140 G)) 0 ea TOP DAILY [facility] Last Admin: 09/07/18 14:31 Dose: 2 applic Levalbuterol HCl (Xopenex) 0.63 mg IH [id number] [facility] Last Admin: 09/08/18 08:25 Dose: 0.63 mg Metoprolol Tartrate (Lopressor) 5 mg IVP Q6 [facility] Morphine Sulfate (Morphine) 1 mg IVP Q4H PRN PRN Reason: Pain, severe (8-10) Last Admin: 09/07/18 22:40 Dose: 1 mg Nicotine (Nicoderm Cq) 1 patch TD DAILY [facility] Last Admin: 09/08/18 09:42 Dose: 1 patch Nystatin (Mycostatin Cream) 0 ea TOP TID [facility] Last Admin: 09/07/18 17:35 Dose: Not Given Ondansetron HCl (Zofran Inj) 4 mg IVP Q4H PRN PRN Reason: Nausea/Vomiting Pantoprazole Sodium (Protonix Inj) 40 mg IVP DAILY [facility] Last Admin: 09/08/18 09:42 Dose: 40 mg Polyethylene Glycol (Miralax) 17 gm PO DAILY [facility] Last Admin: 09/07/18 14:28 Dose: 17 gm Sodium Hypochlorite (Dakins Solution 0.25%) 0 ml TOP DAILY [facility] Last Admin: 09/07/18 14:30 Dose: 2 applic - Labs Labs: 09/08/18 06:00 09/08/18 06:00 PT 15.1 SECONDS (9.4-12.5) H 08/23/18 22:20 INR 1.36 08/23/18 22:20 APTT 27.9 Seconds (26.9-38.3) 08/23/18 22:20 - Head Exam Head Exam: ATRAUMATIC - Extremities Exam Additional comments: B/L lE focused exam: VASC: DP/PT non-palpable, Temp gradient warm to warm bilaterally, Lymphedema noted bilaterally (improving), non-pitting. Cap refill < 3 sec to all digits. NEURO: grossly intact b/l. DERM: LEFT- 0.5 cm X 0.5 cm wound noted to submetatarsal 1 head, significantly improved, fibrotic base, no drainage, no tunneling, tracking or probe to bone, no malodor, multiple superficial wounds noted to the lateral aspect of the left ankle with 100% granular skin base, no drainage, no probe to bone, no tunneling or tracking, no malodor, chronic skin trophic changes secondary to long standing peripheral vascular disease, no signs of infection noted clinically RIGHT- Superficial wound noted to the lateral aspect of the leg at the site of previous chronic skin trophic changes secondary to long standing peripheral vascular disease, wound base 100% granular, Mild sanguineous drainage, mild malodor, no tunneling, tracking or probe to bone MSK: Muscle power and pain level couldn't be assessed as patient is sedated, intubated and ventilated. - Neurological Exam Neurological Exam: Alert, Awake Assessment and Plan - Assessment and Plan (Free Text) Assessment: 68 y/o M with bilateral lower extremity wounds, Non stagable. Plan: Patient seen and evaluated Chars, Labs and vitals reviewed; Afebrile, WBC 9.4 Bilateral foot x-ray ordered; No evidence of OM Patient refused CT and MRI before. ID on board Reccs appreciated. continue IV as per ID Left foot wound cultures: MRSA, Konanci szymanski Wound cleansed with saline, dressed with bactroban, adaptic, ABD DSD No podiatric intervention planned at this time, in our clinical judgement no evidence of OM, however, cannot be confirmed as patient has refused both MRI/CT Podiatry will continue to follow up the patient while in house <Kvng Lloyd - Last Filed: 09/10/18 17:15> Objective - Vital Signs/Intake and Output Vital Signs (last 24 hours): Temp Pulse Resp BP Pulse Ox 97.5 F L 121 H 20 155/76 H 96 09/10/18 12:08 09/10/18 12:08 09/10/18 05:06 09/10/18 12:08 09/10/18 12:08 Intake and Output: 09/10/18 09/10/18 06:59 18:59 Intake Total 1593 297 Output Total 700 Balance 893 297 - Medications Medications: Current Medications Acetaminophen (Tylenol 325mg Tab) 650 mg PO Q6 PRN PRN Reason: TEMP>=99.5F Last Admin: 09/03/18 13:54 Dose: 650 mg Bisacodyl (Dulcolax) 10 mg RC HS PRN PRN Reason: Constipation Budesonide (Pulmicort Respules) 0.5 mg IH [id number] [facility] Last Admin: 09/10/18 07:02 Dose: 0.5 mg Collagenase (Santyl) 0 gm TOP DAILY [facility] Last Admin: 09/10/18 15:33 Dose: 1 appl Ergocalciferol (Drisdol 50,000 Intl Units Cap) 1 cap PO Q7D [facility] Last Admin: 09/09/18 15:56 Dose: 1 cap Folic Acid (Folic Acid) 1 mg PO DAILY [facility] Last Admin: 09/10/18 09:47 Dose: 1 mg Furosemide (Lasix) 60 mg IVP Q12 [facility] Last Admin: 09/09/18 23:28 Dose: 60 mg Heparin Sodium (Porcine) (Heparin) 5,000 units SC Q8 [facility]; Protocol Last Admin: 09/09/18 05:30 Dose: 5,000 units Dexmedetomidine HCl (Precedex 400mcg/100ml) 400 mcg in 100 mls @ 3.856 mls/hr IV .Q24H PRN; Protocol PRN Reason: Sedation Last Titration: 09/10/18 15:46 Dose: 1.5 mcg/kg/hr, 28.917 mls/hr Fentanyl Citrate (Fentanyl Citrate/Sodium Chloride 1 Mg/100 Ml) 1,000 mcg in 100 mls @ 2 mls/hr IV .Q24H PRN; Protocol PRN Reason: TITRATE PER MD ORDER Last Titration: 09/10/18 14:36 Dose: 150 mcg/hr, 15 mls/hr Meropenem/Sodium Chloride (Merrem Iv 500 Mg/Ns 50 Ml) 500 mg in 50 mls @ 100 mls/hr IVPB Q12 [facility]; Protocol Stop: 09/13/18 22:01 Last Admin: 09/10/18 09:48 Dose: 100 mls/hr NOREPINEPHRINE BIT/0.9 % NACL (Levophed 4 Mg/ 250 Ml Ns Premixed) 4 mg in 250 mls @ 15 mls/hr IV .C07Q07H PRN; Protocol PRN Reason: TITRATE PER MD ORDER Last Admin: 09/10/18 12:15 Dose: 4 mcg/min, 15 mls/hr Lactic Acid (Lac-Hydrin 12% Cream (140 G)) 0 ea TOP DAILY [facility] Last Admin: 09/10/18 09:37 Dose: 1 applic Levalbuterol HCl (Xopenex) 0.63 mg IH [id number] [facility] Last Admin: 09/10/18 13:28 Dose: 0.63 mg Metoprolol Tartrate (Lopressor) 5 mg IVP Q6 [facility] Last Admin: 09/10/18 13:33 Dose: Not Given Morphine Sulfate (Morphine) 1 mg IVP Q4H PRN PRN Reason: Pain, severe (8-10) Last Admin: 09/10/18 12:18 Dose: 1 mg Nicotine (Nicoderm Cq) 1 patch TD DAILY [facility] Last Admin: 09/10/18 09:47 Dose: 1 patch Nystatin (Mycostatin Cream) 0 ea TOP TID [facility] Last Admin: 09/10/18 15:36 Dose: 1 cre Ondansetron HCl (Zofran Inj) 4 mg IVP Q4H PRN PRN Reason: Nausea/Vomiting Pantoprazole Sodium (Protonix Inj) 40 mg IVP DAILY [facility] Last Admin: 09/10/18 09:47 Dose: 40 mg Polyethylene Glycol (Miralax) 17 gm PO DAILY [facility] Last Admin: 09/10/18 09:39 Dose: Not Given Sodium Hypochlorite (Dakins Solution 0.25%) 0 ml TOP DAILY [facility] Last Admin: 09/10/18 09:49 Dose: 1 applic - Labs Labs: 09/10/18 05:30 09/10/18 05:30 PT 12.8 SECONDS (9.4-12.5) H 09/10/18 10:20 INR 1.13 09/10/18 10:20 APTT 23.0 Seconds (26.9-38.3) L 09/10/18 10:20 Attending/Attestation - Attestation I have personally seen and examined this patient.: Yes I have fully participated in the care of the patient.: Yes I have reviewed all pertinent clinical information, including history, physical exam and plan: Yes
--- NOTE | 2018-09-08 12:00 | CP.PCM.PCO ---
Physician Communication Note - Physician Communication Note Physician Communication Note: intubated PRVC 50% Peep 5 rate 20 TV 400
[2018-09-08] MEDS: MEROPENEM 500 MG in NS 500 MG/50 ML BAG IVPB SCH ×2 (12:11→21:14)
--- NOTE | 2018-09-08 12:34 | RAD ---
Date of service: 09/08/2018 PROCEDURE: Portable chest HISTORY: OG tube placement COMPARISON: Earlier same day TECHNIQUE: Portable chest FINDINGS: Right-sided infiltrate unchanged. IMPRESSION: The nasogastric tube is in satisfactory position.
--- NOTE | 2018-09-08 12:43 | CP.PCM.PN ---
Subjective - Date & Time of Evaluation Date of Evaluation: 09/08/18 Time of Evaluation: 07:00 - Subjective Subjective: PGY-[address] Hernandez 7am: Remain intubated. No acute issue overnight. Pt is sinus tachy 110s. He gestured that he is in pain 11am: failed breathing trial. OG tube placed. started tube feed Objective - Vital Signs/Intake and Output Vital Signs (last 24 hours): Temp Pulse Resp BP Pulse Ox 98.4 F 86 23 102/52 L 93 L 09/08/18 07:50 09/08/18 12:13 09/08/18 02:30 09/08/18 12:13 09/08/18 07:50 Intake and Output: 09/08/18 09/08/18 06:59 18:59 Intake Total 100 80 Output Total 400 Balance -300 80 - Medications Medications: Current Medications Acetaminophen (Tylenol 325mg Tab) 650 mg PO Q6 PRN PRN Reason: TEMP>=99.5F Last Admin: 09/03/18 13:54 Dose: 650 mg Acetylcysteine (Acetylcysteine 20%) 4 ml IH [id number] [facility] Last Admin: 09/08/18 08:25 Dose: 4 ml Bisacodyl (Dulcolax) 10 mg RC HS PRN PRN Reason: Constipation Budesonide (Pulmicort Respules) 0.5 mg IH [id number] [facility] Last Admin: 09/08/18 08:25 Dose: 0.5 mg Collagenase (Santyl) 0 gm TOP DAILY [facility] Last Admin: 09/07/18 14:32 Dose: 2 appl Ergocalciferol (Drisdol 50,000 Intl Units Cap) 1 cap PO Q7D [facility] Last Admin: 09/02/18 15:26 Dose: 1 cap Folic Acid (Folic Acid) 1 mg PO DAILY [facility] Last Admin: 09/07/18 14:31 Dose: Not Given Furosemide (Lasix) 40 mg IVP DAILY [facility] Last Admin: 09/08/18 11:48 Dose: 40 mg Heparin Sodium (Porcine) (Heparin) 5,000 units SC Q8 [facility]; Protocol Last Admin: 09/08/18 05:09 Dose: 5,000 units Dexmedetomidine HCl (Precedex 400mcg/100ml) 400 mcg in 100 mls @ 3.856 mls/hr IV .Q24H PRN; Protocol PRN Reason: Sedation Last Admin: 09/08/18 10:44 Dose: 0.05 mcg/kg/hr, 1 mls/hr Acetaminophen (Ofirmev) 1,000 mg in 100 mls @ 400 mls/hr IVPB Q6H PRN PRN Reason: Temperature Stop: 09/09/18 08:59 Last Admin: 09/07/18 09:42 Dose: 400 mls/hr Fentanyl Citrate (Fentanyl Citrate/Sodium Chloride 1 Mg/100 Ml) 1,000 mcg in 100 mls @ 2 mls/hr IV .Q24H PRN; Protocol PRN Reason: TITRATE PER MD ORDER Last Admin: 09/08/18 10:43 Dose: 20 mcg/hr, 2 mls/hr Lactic Acid (Lac-Hydrin 12% Cream (140 G)) 0 ea TOP DAILY [facility] Last Admin: 09/07/18 14:31 Dose: 2 applic Levalbuterol HCl (Xopenex) 0.63 mg IH [id number] [facility] Last Admin: 09/08/18 08:25 Dose: 0.63 mg Metoprolol Tartrate (Lopressor) 5 mg IVP Q6 [facility] Last Admin: 09/08/18 12:13 Dose: Not Given Morphine Sulfate (Morphine) 1 mg IVP Q4H PRN PRN Reason: Pain, severe (8-10) Last Admin: 09/07/18 22:40 Dose: 1 mg Nicotine (Nicoderm Cq) 1 patch TD DAILY [facility] Last Admin: 09/08/18 09:42 Dose: 1 patch Nystatin (Mycostatin Cream) 0 ea TOP TID [facility] Last Admin: 09/07/18 17:35 Dose: Not Given Ondansetron HCl (Zofran Inj) 4 mg IVP Q4H PRN PRN Reason: Nausea/Vomiting Pantoprazole Sodium (Protonix Inj) 40 mg IVP DAILY [facility] Last Admin: 09/08/18 09:42 Dose: 40 mg Polyethylene Glycol (Miralax) 17 gm PO DAILY [facility] Last Admin: 09/07/18 14:28 Dose: 17 gm Sodium Hypochlorite (Dakins Solution 0.25%) 0 ml TOP DAILY [facility] Last Admin: 09/07/18 14:30 Dose: 2 applic - Labs Labs: 09/08/18 06:00 09/08/18 06:00 PT 15.1 SECONDS (9.4-12.5) H 08/23/18 22:20 INR 1.36 08/23/18 22:20 APTT 27.9 Seconds (26.9-38.3) 08/23/18 22:20 - Constitutional Appears: No Acute Distress, Other (intubated) - Head Exam Head Exam: ATRAUMATIC, NORMAL INSPECTION, NORMOCEPHALIC - Eye Exam Eye Exam: EOMI, Normal appearance, PERRL. absent: Scleral icterus Pupil Exam: NORMAL ACCOMODATION - ENT Exam ENT Exam: Mucous Membranes Moist - Neck Exam Additional comments: supple - Respiratory Exam Respiratory Exam: Rhonchi - Cardiovascular Exam Cardiovascular Exam: Tachycardia, REGULAR RHYTHM, +S1, +S2 - GI/Abdominal Exam GI & Abdominal Exam: Soft, Hypoactive Bowel Sounds. absent: Tenderness - Extremities Exam Extremities Exam: Pedal Edema. absent: Calf Tenderness - Neurological Exam Neurological Exam: Awake, CN II-XII Intact Additional comments: On precedex Able to answer simple questions about pain by nodding head - Psychiatric Exam Psychiatric exam: Normal Affect, Normal Mood - Skin Skin Exam: Dry, Warm Assessment and Plan - Assessment and Plan (Free Text) Plan: Mr Dodd, 68M, with PMhx penicillin allergy, chronic back pain and vertebral disc disease admitted for b/l foot cellulitis r/o osteomyelitis and L thigh decubitus. During the hospital stay, he developed hypoxemic hypercapnic respiratory distress requiring high flow and BIPAP. He deveopled acute CHF complicated by large b/l pleural effusion and suspected pneumonia with sepsis and high procalcitonin. He refused thoracentesis (08/30). He is upgraded to ICU on 07/10 for AMS with increased lethargy and low BP. He was in shock, sepsis vs cardiogenic, s/p levophed/vasopressin/stress steroid, s/p dobutamin gtt. He had oliguria and FRANCES from low BP. As for pulm, he received thoracentesis by bedside (08/31) 1700cc drained from R side, transudative. He was intubated on 08/31 for Hypercapnic hypoxemic respiratory distress. L lung white out and Venous congestion slowly improved on lasix. He is extubated on 09/03 to 5L NC. On 09/04, he was weaned of dobutamin gtt. On 09/05, his L lung is white out again, in respiratory distress, requiring BIPAP. On 09/06, he is intubated for bronchoscopy #1. Mucus plug was extracted and CXR showed improvement in BRENNAN areation. Post- procedure, he was hypotensive due to propofol and required about 30 mins of levophed and hypotension resolved. On 09/07, he received bronchoscopy #2. Today (09/08), he failed breathing trial due to high heart rate and high o2 demand. OG tube was placed and started tubefeed. Sinus tachycardia likely due to chronic pain, pending UE u/s to r/o DVT Hypoxemic respiratory failure, ventilator dependent left hemithorax opacification due to mucus plugging and pleural effusion, s/p bedside bronchoscopy x 2 - aggressive chest PT and nebs Sinus tachycardia likely due to chronic pain, R/O DVT [ ] pending UE u/s - on lopressor, morphine PRN Shock, septic vs cardiogranic - Had rule out obstructive from PE (negative CTA- chest) - resolved Possible Septic shock due to HAP with b/l foot cellulitis which grew MRSA. PLUS multiple decubitus ulcers - Linezolid/Merem (day 10) s/p vancomycin s/p tapering solucortef - SRINIVAS was only mildly abnormal at rest, possible PAD. - For sacral decubitus stage 3, L thigh, he is on santyl and local wound care. No osteomyelitis - pt refuses foot MRI to r/o osteomyelitis. ESR 105 [ ] Follow up bronchoscopy speciment culture CHF, b/l pleural effusion large, s/p R thoracentesis showing transudative plueral effusion - improves Possible Right Heart failure s/p dobutamin gtt RBBB (questionable new onset vs chronic) with prolong Qtc 496 - Echo (08/31): EF 50s (on pressor). RVSP 62. RV hypokinetic/dilated FRANCES on CKD, likely ATN from transient hypoperfusion/low BP - strict i/o. trend cre/bun - improves/stable He is anemic with Hb 8.4 on 08/25. He got 1u pRBC, s/p 5 days of Fe IV For anxiety, he is on ativan PRN. Currently on precedex gtt For tobacco addition, counseled for cessation/on nicoderm Prophylaxis - protonix, heparin dispo plan: [ ] Re-consult PT/ST after pt extubation. [ ] Antibiotics. [ ] cytology from pleural effusion. s/r/d/w Dr Hernandez
--- NOTE | 2018-09-08 13:07 | CP.PCM.PN ---
Subjective - Date & Time of Evaluation Date of Evaluation: 09/08/18 Time of Evaluation: 08:10 - Subjective Subjective: Patient continues to be intubated, awake but weaning trials have not been successful so far, no fevers. Objective - Vital Signs/Intake and Output Vital Signs (last 24 hours): Temp Pulse Resp BP Pulse Ox 99.7 F H 109 H 20 137/87 100 09/07/18 06:50 09/07/18 06:50 09/07/18 06:50 09/07/18 09:44 09/07/18 06:50 Intake and Output: 09/07/18 09/07/18 06:59 18:59 Intake Total 481.1 Output Total 600 Balance -118.9 - Medications Medications: Current Medications Acetaminophen (Tylenol 325mg Tab) 650 mg PO Q6 PRN PRN Reason: TEMP>=99.5F Last Admin: 09/03/18 13:54 Dose: 650 mg Acetaminophen (Tylenol 650 Mg Supp) 650 mg RC Q6H PRN PRN Reason: TEMP>=99.5F Acetylcysteine (Acetylcysteine 20%) 4 ml IH [id number] [facility] Last Admin: 09/07/18 07:51 Dose: 4 ml Bisacodyl (Dulcolax) 10 mg RC HS PRN PRN Reason: Constipation Budesonide (Pulmicort Respules) 0.5 mg IH [id number] [facility] Last Admin: 09/07/18 07:51 Dose: 0.5 mg Collagenase (Santyl) 0 gm TOP DAILY [facility] Last Admin: 09/06/18 12:48 Dose: 2 appl Ergocalciferol (Drisdol 50,000 Intl Units Cap) 1 cap PO Q7D [facility] Last Admin: 09/02/18 15:26 Dose: 1 cap Folic Acid (Folic Acid) 1 mg PO DAILY [facility] Last Admin: 09/06/18 12:43 Dose: Not Given Furosemide (Lasix) 40 mg IVP DAILY [facility] Last Admin: 09/07/18 09:44 Dose: 40 mg Heparin Sodium (Porcine) (Heparin) 5,000 units SC Q8 [facility]; Protocol Last Admin: 09/07/18 06:00 Dose: 5,000 units Dexmedetomidine HCl (Precedex 400mcg/100ml) 400 mcg in 100 mls @ 3.856 mls/hr IV .Q24H PRN; Protocol PRN Reason: Sedation Last Titration: 09/07/18 00:00 Dose: 0.7 mcg/kg/hr, 13.494 mls/hr Meropenem/Sodium Chloride (Merrem Iv 500 Mg/Ns 50 Ml) 500 mg in 50 mls @ 100 m ls/hr IVPB Q12 [facility]; Protocol Stop: 09/08/18 10:01 Last Admin: 09/07/18 09:46 Dose: 100 mls/hr Propofol (Diprivan) 1,000 mg in 100 mls @ 2.313 mls/hr IV .Q24H PRN; Protocol PRN Reason: TITRATE PER MD ORDER Last Titration: 09/06/18 13:04 Dose: 0 mcg/kg/min, 0 mls/hr Potassium Chloride (Potassium Chloride 20 Meq/100 Ml) 20 meq in 100 mls @ 50 mls/hr IVPB Q2H [facility] Stop: 09/07/18 13:44 Last Admin: 09/07/18 09:45 Dose: 50 mls/hr Acetaminophen (Ofirmev) 1,000 mg in 100 mls @ 400 mls/hr IVPB Q6H PRN PRN Reason: Temperature Stop: 09/09/18 08:59 Last Admin: 09/07/18 09:42 Dose: 400 mls/hr Propofol (Diprivan) 1,000 mg in 100 mls @ 2.063 mls/hr IV .Q24H PRN; Protocol PRN Reason: TITRATE PER MD ORDER Linezolid (Zyvox 600mg/300ml D5w) 600 mg in 300 mls @ 200 mls/hr IVPB Q12 [facility]; Protocol Stop: 09/14/18 22:01 Lactic Acid (Lac-Hydrin 12% Cream (140 G)) 0 ea TOP DAILY [facility] Last Admin: 09/06/18 19:17 Dose: Not Given Levalbuterol HCl (Xopenex) 0.63 mg IH [id number] [facility] Last Admin: 09/07/18 07:51 Dose: 0.63 mg Metoprolol Tartrate (Lopressor) 50 mg PO Q8H [facility] Last Admin: 08/31/18 10:03 Dose: Not Given Morphine Sulfate (Morphine) 1 mg IVP Q4H PRN PRN Reason: Pain, severe (8-10) Last Admin: 09/06/18 21:15 Dose: 1 mg Mupirocin (Bactroban Ointment) 0 gm TOP BID [facility] Last Admin: 09/06/18 19:17 Dose: Not Given Nicotine (Nicoderm Cq) 1 patch TD DAILY [facility] Last Admin: 09/07/18 09:43 Dose: 1 patch Nystatin (Mycostatin Cream) 0 ea TOP TID [facility] Last Admin: 09/06/18 19:18 Dose: Not Given Ondansetron HCl (Zofran Inj) 4 mg IVP Q4H PRN PRN Reason: Nausea/Vomiting Pantoprazole Sodium (Protonix Inj) 40 mg IVP DAILY [facility] Last Admin: 09/07/18 09:45 Dose: 40 mg Polyethylene Glycol (Miralax) 17 gm PO DAILY [facility] Last Admin: 09/06/18 12:45 Dose: Not Given Sodium Hypochlorite (Dakins Solution 0.25%) 0 ml TOP DAILY [facility] Last Admin: 09/06/18 12:39 Dose: 1 applic - Labs Labs: 09/07/18 06:00 09/07/18 06:00 PT 15.1 SECONDS (9.4-12.5) H 08/23/18 22:20 INR 1.36 08/23/18 22:20 APTT 27.9 Seconds (26.9-38.3) 08/23/18 22:20 - Constitutional Appears: Chronically Ill, Other (intubated) - Head Exam Head Exam: NORMAL INSPECTION - ENT Exam Additional comments: ET tube in place - Respiratory Exam Respiratory Exam: Decreased Breath Sounds - Cardiovascular Exam Cardiovascular Exam: +S1, +S2 - GI/Abdominal Exam GI & Abdominal Exam: Soft. absent: Tenderness - Extremities Exam Additional comments: both lower extremities with dressings in place Assessment and Plan - Assessment and Plan (Free Text) Plan: Assessment severe sepsis / S/P shock now again with ventilator-dependent respiratory failure and acute renal failure due to probable right lower lobe hospital- acquired pneumonia, with bilateral pleural effusions S/P right sided thoracentesis, now again with left hemithorax opacification with mucus plugging S/P bronchoscopy and removal of mucus plugs Infected left lower extremity wounds, R/O osteomyelitis, grew MRSA chronic back pain vertebral disc disease venous stasis dermatitis Plan will discontinue Zyvox because of low platelets and start intermittent Vancomycin IV and will also continue Merrem (day 10 of antibiotics) - follow up repeat blood cx, sputum cx (from sample taken from bronchoscopy 2 days ago); Vancomycin will also cover the MRSA in the foot mucus plugs were noted and removed during bronchoscopy 09/06/2018 awaiting MRI of the foot but patient is critically ill currently patient had thoracentesis previously on the right and fluid looks to be transudative discussed with Dr. Lloyd - no surgery for the foot for now will continue to follow clinically monitor platelet count overall prognosis is poor
--- NOTE | 2018-09-08 13:45 | PN ---
DATE: 09/08/2018 SUBJECTIVE: The patient is seen intubated in ICU bed 4. The patient is awake, responsive. The patient is getting his podiatry leg care by the manager maintenance. The patient is seen intubated. The patient is awake, responses, eyes are open. The patient has an ET tube in place. Overnight nurse's notes were reviewed. PHYSICAL EXAMINATION: VITAL SIGNS: T-max 98.4. Telemetry shows sinus tachycardia, heart rate in 120s, 110, 130s on the monitor. Blood pressure is 146/66, 138/69, 144/65, 153/71, respiration is 20 to 23. O2 sat is 93% to 96%. INTAKE OUTPUT: Intake 650, output 550. The patient was on PRVC with rate of 20, tidal volume 400, PEEP of 5, FIO2 50%. HEAD: Normocephalic, atraumatic. HEENT: Pinkish conjunctivae. Anicteric sclerae. Positive ET tube noted. No neck rigidity. CHEST: Kyphosis, increased air entry, increased breath sounds noted on the left. Improved airy entry on the left lung. CARDIOVASCULAR: S1, S2, tachycardic rhythm. ABDOMEN: Soft. Positive bowel sound, no palpable hepatosplenomegaly. GENITALIA: Male. Positive Abrams catheter. EXTREMITY: Significant improvement of the lymphedema and the bilateral lower extremity venous stasis ulceration. Positive dystrophic toenails noted. Positive Multi-Podus boots noted. Gait examination, bedridden. MUSCULOSKELETAL: Examination shows a body mass index of 24. DIAGNOSTICS: 09/08/2018, hemoglobin and hematocrit 10.2 and 33.8, platelet 101, manual platelets are 101. ABG on FIO2 of 60%, pH of 7.48, pCO2 of 45, pO2 of 75, bicarb 33, saturation 97.2. Chemistry significant for potassium of 3.5, CO2 of 35, BUN down to 54, creatinine 1.9, GFR 35, glucose 77, calcium 8. LFTs are normal. BNP is down to 7140, total protein 5.5, albumin 2.2. Chest x-ray from 09/08/2018 shows right upper and lower middle lobe infiltrate with improving aeration of the left lung. The patient underwent bronchoscopy yesterday by the reel film inspector for pulmonary toilet and removal of mucus plug. The patient had bronchoscopy. Finding was thick green mucus filled in the left upper lobe which was suctioned out. Bronchoscopy also was done to remove left upper lobe mucus plug. IMPRESSION: 1. Ventilator-dependent respiratory failure. 2. Status post fiberoptic bronchoscopy x2 with removal of left upper lobe mucus plug, left mainstem mucus plug removal. 3. Resting tachycardia. 4. Morganella morganii, methicillin-resistant Staphylococcus aureus, Providencia rettgeri, Corynebacterium and Proteus penneri, bilateral lower extremity venous stasis cellulitis and ulceration. 5. Status post hypothermia. 6. Leukocytosis. 7. Normocytic anemia. 8. Thrombocytopenia. 9. Bandemia. 10. Elevated erythrocyte sedimentation rate. 11. Disabled. 12. Acute hypercapnic and hypoxic respiratory failure with respiratory acidosis and CO2 narcosis. 13. Hypokalemia. 14. Acute kidney injury with metabolic alkalosis. 15. Hypocalcemia. 16. Acute right-sided diastolic congestive heart failure with elevated ProBNP. 17. Mild protein malnutrition. 18. Hypoalbuminemia. 19. Vitamin B12 deficiency. 20. Hypovitaminosis D. 21. Proteinuria, microscopic hematuria. 22. Status post ultrasound-guided right thoracentesis with removal of 1700 mL of pleural fluid, transudate. 23. History of cannabinoid abuse and dependence. 24. Narcotic-dependent pain syndrome. 25. Status post packed red blood cell transfusion x1. 26. Ventilator-dependent right upper lobe, right middle lobe and right lower lobe multilobar possible aspiration pneumonia. 27. Bilateral pleural effusion. 28. Thoracic aorta atherosclerotic calcification. 29. Status post right internal jugular triple-lumen catheter and central line placement. 30. Right bundle-branch block. 31. Bilateral lower extremity nonstageable wounds. 32. Sacral, gluteal decubitus ulceration and bilateral posterior thigh decubitus ulceration. 33. Sinus tachycardia. 34. Left atrial enlargement. 35. Sepsis, status post hypotensive, hypovolemic and possible septic shock. 36. Multilobar bilateral healthcare ventilator-dependent aspiration pneumonia. 37. Bilateral pleural effusion. PLAN: At this time, the patient has been ordered serial labs. Serial ABGs ordered by Pulmonary. CURRENT CONSULTATION: Surgery, Infectious Disease, Cardiology, Interventional Radiology, Gastroenterology, Hematology, Nephrology, Pulmonary, Podiatry. CURRENT MEDICATIONS: The patient is on IV acetaminophen 1000 mg IV every 6 hours, Tylenol 650 mg, Mucomyst 20% 4 mL every 6 hours, Dakin solution, Precedex drip, Drisdol 50,000 weekly. The patient is started on fentanyl drip at 20 mcg per hour, folic acid, heparin 5000 subcu every 8 hours, Lac-Hydrin lotion. The patient received a dose of digoxin yesterday 0.25 IV x1. The patient is on Lasix 40 IV daily. The patient is started on Lopressor 5 mg IV every 6 hours around the clock to hold for heart rate less than or equal to 95 per minute, meropenem 500 IV every 12 hours, MiraLax 17 g daily, morphine 1 mg IV every 4 hours p.r.n., nystatin cream, nicotine patch 21 mg daily. The patient is ordered potassium riders x2, Protonix 40 IV daily, Pulmicort nebulizer 0.5 mg every 12 hours, Santyl, vancomycin was given one dose 1.5 g, Xopenex nebulizer 0.63 mg every 6 hours, Zofran 4 IV every 4 hours. Repeat chest x-ray has been ordered. Venous Doppler of the right upper extremity has been ordered for swelling of the right upper extremity. Repeat EKGs has been ordered. At present, the patient's overall prognosis is guarded to poor. Condition critical. Dictated and electronically signed, not read. Carlos Hernandez MD
--- NOTE | 2018-09-08 15:05 | PN ---
DATE: 09/08/2018 SUBJECTIVE: The patient failed attempts of weaning off the ventilator. PHYSICAL EXAMINATION: VITAL SIGNS: Stable, heart rate in the 80s. NECK: Negative JVD. LUNGS: Decreased breath sounds bilaterally. HEART: Reveal S1, S2. EXTREMITIES: Without change. LABORATORY DATA: Hemoglobin is 10.2. Chemistries; BUN and creatinine is 54 and 1.9. IMPRESSION: 1. Respiratory failure. 2. Episode of supraventricular tachycardia yesterday. 3. Pleural effusions. 4. Marked mucous plugging. 5. Chronic obstructive pulmonary disease. 6. Renal insufficiency. Given these findings, the patient's heart rate currently is well-controlled with the patient being maintained on the ventilator. We will make attempt again tomorrow. Jero Salamanca MD
[2018-09-08] MEDS: Dakin's Topical 0.25%-Half Strength (480 ml) TOP SCH (15:47)
[2018-09-08] MEDS: POLYETHYLENE GLYCOL 3350 17 GM/Dose PACKET PO SCH (15:48)
[2018-09-08] MEDS: Ammonium Lactate 12% Cream (140 g) TOP SCH (15:48)
[2018-09-08] MEDS: Nystatin 100,000 Units/gm Cream(15 gm) TOP SCH ×2 (15:48→18:44)
[2018-09-08] MEDS: Collagenase 250 Units/gm Ointment(30 gm) TOP SCH (15:49)
--- NOTE | 2018-09-08 23:46 | CARD ---
APPROVED REPORT Date of service: 09/08/2018 EKG Measurement Heart [id number] <Conclusion> Sinus tachycardia Possible Left atrial enlargement Right bundle branch block NDSTT abnormalities Abnormal ECG
[2018-09-09] MEDS: Metoprolol 1 mg/ml Inj IVP SCH ×4 (00:07→17:47)
[2018-09-09] MEDS: Levalbuterol 0.63 MG/3 ML Inhal Soln UD IH SCH ×4 (01:00→21:07)
[2018-09-09] MEDS: Acetylcysteine 20% Inhal Soln (4ml) IH SCH (01:00)
[2018-09-09] MEDS: Dexmedetomidine 400mcg/100mL 400 MCG/100 ML BOTTLE IV PRN ×4 (05:23→23:27)
[2018-09-09 05:30] LABS: ARTERIAL BLOOD GAS HEMOGLOBIN 10.6 g/dL (11.7-17.4); ARTERIAL BLOOD GAS O2 CAPACITY 14.5 mL/dl (16-24); ARTERIAL BLOOD GAS O2 CONTENT 13.8 ML/dl (15-23); ARTERIAL BLOOD GAS O2 SAT 95.3 % (95-98); ARTERIAL BLOOD GAS PCO2 38 mm/Hg (35-45); ARTERIAL BLOOD GAS PH 7.52 (7.35-7.45); ARTERIAL BLOOD GAS TCO2 32.2 mmol.L (22-28)
[2018-09-09 07:08] LABS: BASO # 0.02 K/mm3 (0.0-2.0); BASO % 0.3 % (0.0-3.0); EOS % 12.1 % (1.5-5.0); HEMOGLOBIN 10.5 g/dL (14.0-18.0); LYMPH # 0.7 (1.2-3.4); LYMPH % 8.5 % (22.0-35.0); MEAN CELL VOLUME 89.3 fl (80.0-105.0); MEAN CORPUSCULAR HEMOGLOBIN 26.9 pg (25.0-35.0); MEAN CORPUSCULAR HGB CONC 30.1 g/dl (31.0-37.0); MEAN PLATELET VOLUME 10.4 fl (7.0-11.0); MONO # 0.4 (0.1-0.6); MONO % 4.5 % (1.0-6.0); RBC 3.91 10^6/uL (3.5-6.1); RED CELL DISTRIBUTION WIDTH 15.8 % (11.5-14.5); WHITE BLOOD COUNT 7.9 10^3/uL (4.5-11.0)
[2018-09-09 07:18] LABS: ALB/GLOB RATIO 0.7 (1.1-1.8); ALBUMIN 2.2 g/dL (3.0-4.8); BILIRUBIN,DIRECT 0.3 mg/dL (0.0-0.4)
[2018-09-09] MEDS: Budesonide 0.5 mg/2 ml Inhal Susp UD IH SCH ×2 (07:24→21:06)
--- NOTE | 2018-09-09 08:28 | PN ---
DATE: 09/09/2018 SUBJECTIVE: The patient remains on the ventilator. He is awake and alert. He appears comfortable. PHYSICAL EXAMINATION: VITAL SIGNS: Temperature 99, pulse 116, respiratory rate 22/20, blood pressure 119/59. HEENT: Normocephalic, atraumatic. NECK: No JVD. CARDIOVASCULAR: Systolic ejection murmur at the lower left sternal border. Positive S3 gallop. LUNGS: Decreased breath sounds with crackles at both bases. Mild bilateral rhonchi. No wheezing. EXTREMITIES: Mild edema. No cyanosis. No clubbing. Calves are nontender to palpation. GI: Abdomen is soft, nontender and nondistended. Bowel sounds are positive. SKIN: Positive decubitus ulcers. Positive bilateral lower extremity ulcers. NEUROLOGIC: Exam limited at the present time. PERTINENT LABORATORY DATA: Chest x-ray was done this morning and reviewed. The chest x-ray is poor and rotated in nature. It reveals a diffuse infiltrate in the right lung with an abnormal appearing left lower lobe. A repeat chest x-ray is ordered. Arterial blood gas was done on PRVC 20, tidal volume 400, FiO2 50%, PEEP of 5. Results are: pH 7.52, pCO2 of 38, pO2 of 61. IMPRESSION: 1. Respiratory failure. 2. Recurrent atelectasis - left lung. 3. Congestive heart failure. 4. Bilateral pleural effusions. 5. Diffuse right lung infiltrate. 6. Chronic obstructive pulmonary disease. 7. Renal insufficiency. PLAN: The patient remains intubated. He is awake and alert. He does appear comfortable on the ventilator. I did discuss the case with the night nurse at length. The night nurse stated the patient had an uneventful night. I did review the chest x-ray from this morning. Findings are noted above. A repeat chest x-ray has been ordered on a stat basis. I did discuss the x-ray findings with Dr. Velázquez (ICU) this morning. I have also reviewed the arterial blood gas. The arterial blood gas remains with a significant alveolar-arterial gradient. We will increase the FiO2 this morning. I would continue with the antibiotic coverage as per Infectious Disease. Input by Dr. Kelley is noted. Temperatures have resolved. There is no leukocytosis. Inputs by Internal Medicine and Cardiology are also noted. The patient remains on intravenous Lasix. The patient remains critically ill with overall very guarded/poor prognosis. I will discuss the above with the entire ICU team in the next few moments. I will also discuss the above with the attending physician later this morning. Mike Mahmood MD [facility]
--- NOTE | 2018-09-09 09:46 | RAD ---
Date of service: 09/09/2018 HISTORY: New CXR finding, wanting to confirm COMPARISON: 09/09/2018 at 5:36 a.m. FINDINGS: LUNGS: Extensive interstitial opacity in the right lung, predominantly upper lobe. No alfredo consolidation identified. PLEURA: Bilateral small pleural effusion. No pneumothorax. CARDIOVASCULAR: There is atherosclerotic calcification the thoracic aorta. Normal heart size. ET tube, NG tube and right IJ central venous catheter are unchanged. There is congestive change. Findings may reflect interstitial pulmonary edema. OSSEOUS STRUCTURES: No significant abnormalities. VISUALIZED UPPER ABDOMEN: Normal. OTHER FINDINGS: None. IMPRESSION: Bilateral pleural effusion. Interstitial infiltrate right upper greater than right lower. No alfredo consolidation. Congestive change. Bilateral small pleural effusion. Possible interstitial pulmonary edema. Follow-up advised.
--- NOTE | 2018-09-09 10:24 | RAD ---
Date of service: 09/09/2018 HISTORY: f/u COMPARISON: 09/08/2018 FINDINGS: LUNGS: There is no change in the extensive right-sided infiltrate. PLEURA: Small bibasilar pleural effusions CARDIOVASCULAR: No aortic atherosclerotic calcification present. Normal cardiac size. No pulmonary vascular congestion. OSSEOUS STRUCTURES: No significant abnormalities. VISUALIZED UPPER ABDOMEN: Normal. OTHER FINDINGS: Central lines and tubes are unchanged IMPRESSION: No significant change in extensive right-sided infiltrate
[2018-09-09] MEDS: MEROPENEM 500 MG in NS 500 MG/50 ML BAG IVPB SCH ×2 (10:50→23:28)
[2018-09-09] MEDS: POLYETHYLENE GLYCOL 3350 17 GM/Dose PACKET PO SCH (10:52)
[2018-09-09] MEDS: Fentanyl 1000mcg/100ml NS 1,000 MCG/100 ML BAG IV PRN ×2 (11:10→20:20)
[2018-09-09] MEDS: Dakin's Topical 0.25%-Half Strength (480 ml) TOP SCH (11:25)
[2018-09-09] MEDS: Ammonium Lactate 12% Cream (140 g) TOP SCH (11:26)
[2018-09-09] MEDS: Nystatin 100,000 Units/gm Cream(15 gm) TOP SCH ×3 (11:27→17:48)
[2018-09-09] MEDS: Collagenase 250 Units/gm Ointment(30 gm) TOP SCH (11:27)
--- NOTE | 2018-09-09 12:17 | CP.PCM.PN ---
<Kulwant Mathews - Last Filed: 09/09/18 12:14> Subjective - Date & Time of Evaluation Date of Evaluation: 09/09/18 Time of Evaluation: 12:14 - Subjective Subjective: Podiatry progress note: Dr. Lloyd 68 y/o M patient seen and evaluated in ICU for b/l ulcerations. Patient still intubated and artificially ventilated. Patient was awake and communicating through head movement. As per patient chart Patient didn't have overnight F/N/V or C. Objective - Vital Signs/Intake and Output Vital Signs (last 24 hours): Temp Pulse Resp BP Pulse Ox 99.0 F 116 H 18 94/46 L 93 L 09/09/18 03:30 09/09/18 06:00 09/08/18 16:02 09/09/18 10:55 09/09/18 03:30 Intake and Output: 09/09/18 09/09/18 06:59 18:59 Intake Total 250 195 Output Total 400 Balance -150 195 - Medications Medications: Current Medications Acetaminophen (Tylenol 325mg Tab) 650 mg PO Q6 PRN PRN Reason: TEMP>=99.5F Last Admin: 09/03/18 13:54 Dose: 650 mg Bisacodyl (Dulcolax) 10 mg RC HS PRN PRN Reason: Constipation Budesonide (Pulmicort Respules) 0.5 mg IH [id number] [facility] Last Admin: 09/09/18 07:24 Dose: 0.5 mg Collagenase (Santyl) 0 gm TOP DAILY [facility] Last Admin: 09/09/18 11:27 Dose: 1 appl Ergocalciferol (Drisdol 50,000 Intl Units Cap) 1 cap PO Q7D [facility] Last Admin: 09/02/18 15:26 Dose: 1 cap Folic Acid (Folic Acid) 1 mg PO DAILY [facility] Last Admin: 09/09/18 10:51 Dose: 1 mg Furosemide (Lasix) 60 mg IVP Q12 [facility] Last Admin: 09/09/18 10:55 Dose: Not Given Heparin Sodium (Porcine) (Heparin) 5,000 units SC Q8 [facility]; Protocol Last Admin: 09/09/18 05:30 Dose: 5,000 units Dexmedetomidine HCl (Precedex 400mcg/100ml) 400 mcg in 100 mls @ 3.856 mls/hr IV .Q24H PRN; Protocol PRN Reason: Sedation Last Titration: 09/09/18 11:28 Dose: 1 mcg/kg/hr, 19.278 mls/hr Fentanyl Citrate (Fentanyl Citrate/Sodium Chloride 1 Mg/100 Ml) 1,000 mcg in 100 mls @ 2 mls/hr IV .Q24H PRN; Protocol PRN Reason: TITRATE PER MD ORDER Last Admin: 09/09/18 11:10 Dose: 100 mcg/hr, 10 mls/hr Meropenem/Sodium Chloride (Merrem Iv 500 Mg/Ns 50 Ml) 500 mg in 50 mls @ 100 mls/hr IVPB Q12 [facility]; Protocol Stop: 09/13/18 22:01 Last Admin: 09/09/18 10:50 Dose: 100 mls/hr Lactic Acid (Lac-Hydrin 12% Cream (140 G)) 0 ea TOP DAILY [facility] Last Admin: 09/09/18 11:26 Dose: 1 applic Levalbuterol HCl (Xopenex) 0.63 mg IH [id number] [facility] Last Admin: 09/09/18 07:24 Dose: 0.63 mg Metoprolol Tartrate (Lopressor) 5 mg IVP Q6 [facility] Last Admin: 09/09/18 05:23 Dose: 5 mg Morphine Sulfate (Morphine) 1 mg IVP Q4H PRN PRN Reason: Pain, severe (8-10) Last Admin: 09/07/18 22:40 Dose: 1 mg Nicotine (Nicoderm Cq) 1 patch TD DAILY [facility] Last Admin: 09/09/18 10:51 Dose: 1 patch Nystatin (Mycostatin Cream) 0 ea TOP TID [facility] Last Admin: 09/09/18 11:27 Dose: 1 cre Ondansetron HCl (Zofran Inj) 4 mg IVP Q4H PRN PRN Reason: Nausea/Vomiting Pantoprazole Sodium (Protonix Inj) 40 mg IVP DAILY [facility] Last Admin: 09/09/18 10:51 Dose: 40 mg Polyethylene Glycol (Miralax) 17 gm PO DAILY [facility] Last Admin: 09/09/18 10:52 Dose: 17 gm Sodium Hypochlorite (Dakins Solution 0.25%) 0 ml TOP DAILY [facility] Last Admin: 09/09/18 11:25 Dose: 1 applic - Labs Labs: 09/09/18 05:30 02/21/19 05:30 PT 15.1 SECONDS (9.4-12.5) H 08/23/18 22:20 INR 1.36 08/23/18 22:20 APTT 27.9 Seconds (26.9-38.3) 08/23/18 22:20 - Head Exam Head Exam: ATRAUMATIC - Extremities Exam Additional comments: B/L lE focused exam: VASC: DP/PT non-palpable, Temp gradient warm to warm bilaterally, Lymphedema noted bilaterally (improving), non-pitting. Cap refill < 3 sec to all digits. NEURO: grossly intact b/l. DERM: LEFT- 0.4 cm X 0.4 cm wound noted to submetatarsal 1 head, significantly impr oving, fibrotic base, no drainage, no tunneling, tracking or probe to bone, no malodor, multiple superficial wounds noted to the lateral aspect of the left ankle with 100% granular skin base, no drainage, no probe to bone, no tunneling or tracking, no malodor, chronic skin trophic changes secondary to long standing peripheral vascular disease, no signs of infection noted clinically. Improving. RIGHT- Superficial wound noted to the lateral aspect of the leg at the site of previous chronic skin trophic changes secondary to long standing peripheral vascular disease, wound base 100% granular, Mild sanguineous drainage, mild malodor, no tunneling, tracking or probe to bone. Improving. MSK: Muscle power and pain level couldn't be assessed as patient is sedated, intubated and ventilated. - Neurological Exam Additional comments: Patient is intubated and ventilated but he communicates through head movement. Assessment and Plan - Assessment and Plan (Free Text) Assessment: 68 y/o M with bilateral lower extremity stage 1 ulcers. Plan: Patient seen and evaluated [facility], Labs and vitals reviewed; Afebrile, WBC 7.4 Bilateral foot x-ray ordered; No evidence of OM Patient refused CT and MRI before. ID on board Reccs appreciated. continue IV as per ID Left foot wound cultures: MRSA, Morg morgnanii Wounds cleansed with saline, dressed with bactroban, adaptic, ABD DSD No podiatric intervention planned at this time, in our clinical judgement no evidence of OM, however, cannot be confirmed as patient has refused both MRI/CT Podiatry will continue to follow up the patient while in house <Kvng Lloyd - Last Filed: 09/10/18 17:13> Objective - Vital Signs/Intake and Output Vital Signs (last 24 hours): Temp Pulse Resp BP Pulse Ox 97.5 F L 121 H 20 155/76 H 96 09/10/18 12:08 09/10/18 12:08 09/10/18 05:06 09/10/18 12:08 09/10/18 12:08 Intake and Output: 09/10/18 09/10/18 06:59 18:59 Intake Total 1593 297 Output Total 700 Balance 893 297 - Medications Medications: Current Medications Acetaminophen (Tylenol 325mg Tab) 650 mg PO Q6 PRN PRN Reason: TEMP>=99.5F Last Admin: 09/03/18 13:54 Dose: 650 mg Bisacodyl (Dulcolax) 10 mg RC HS PRN PRN Reason: Constipation Budesonide (Pulmicort Respules) 0.5 mg IH [id number] [facility] Last Admin: 09/10/18 07:02 Dose: 0.5 mg Collagenase (Santyl) 0 gm TOP DAILY [facility] Last Admin: 09/10/18 15:33 Dose: 1 appl Ergocalciferol (Drisdol 50,000 Intl Units Cap) 1 cap PO Q7D [facility] Last Admin: 09/09/18 15:56 Dose: 1 cap Folic Acid (Folic Acid) 1 mg PO DAILY [facility] Last Admin: 09/10/18 09:47 Dose: 1 mg Furosemide (Lasix) 60 mg IVP Q12 [facility] Last Admin: 09/09/18 23:28 Dose: 60 mg Heparin Sodium (Porcine) (Heparin) 5,000 units SC Q8 [facility]; Protocol Last Admin: 09/09/18 05:30 Dose: 5,000 units Dexmedetomidine HCl (Precedex 400mcg/100ml) 400 mcg in 100 mls @ 3.856 mls/hr IV .Q24H PRN; Protocol PRN Reason: Sedation Last Titration: 09/10/18 15:46 Dose: 1.5 mcg/kg/hr, 28.917 mls/hr Fentanyl Citrate (Fentanyl Citrate/Sodium Chloride 1 Mg/100 Ml) 1,000 mcg in 100 mls @ 2 mls/hr IV .Q24H PRN; Protocol PRN Reason: TITRATE PER MD ORDER Last Titration: 09/10/18 14:36 Dose: 150 mcg/hr, 15 mls/hr Meropenem/Sodium Chloride (Merrem Iv 500 Mg/Ns 50 Ml) 500 mg in 50 mls @ 100 mls/hr IVPB Q12 [facility]; Protocol Stop: 09/13/18 22:01 Last Admin: 09/10/18 09:48 Dose: 100 mls/hr NOREPINEPHRINE BIT/0.9 % NACL (Levophed 4 Mg/ 250 Ml Ns Premixed) 4 mg in 250 mls @ 15 mls/hr IV .[id number] PRN; Protocol PRN Reason: TITRATE PER MD ORDER Last Admin: 09/10/18 12:15 Dose: 4 mcg/min, 15 mls/hr Lactic Acid (Lac-Hydrin 12% Cream (140 G)) 0 ea TOP DAILY [facility] Last Admin: 09/10/18 09:37 Dose: 1 applic Levalbuterol HCl (Xopenex) 0.63 mg IH [id number] [facility] Last Admin: 09/10/18 13:28 Dose: 0.63 mg Metoprolol Tartrate (Lopressor) 5 mg IVP Q6 [facility] Last Admin: 09/10/18 13:33 Dose: Not Given Morphine Sulfate (Morphine) 1 mg IVP Q4H PRN PRN Reason: Pain, severe (8-10) Last Admin: 09/10/18 12:18 Dose: 1 mg Nicotine (Nicoderm Cq) 1 patch TD DAILY [facility] Last Admin: 09/10/18 09:47 Dose: 1 patch Nystatin (Mycostatin Cream) 0 ea TOP TID [facility] Last Admin: 09/10/18 15:36 Dose: 1 cre Ondansetron HCl (Zofran Inj) 4 mg IVP Q4H PRN PRN Reason: Nausea/Vomiting Pantoprazole Sodium (Protonix Inj) 40 mg IVP DAILY [facility] Last Admin: 09/10/18 09:47 Dose: 40 mg Polyethylene Glycol (Miralax) 17 gm PO DAILY [facility] Last Admin: 09/10/18 09:39 Dose: Not Given Sodium Hypochlorite (Dakins Solution 0.25%) 0 ml TOP DAILY [facility] Last Admin: 09/10/18 09:49 Dose: 1 applic - Labs Labs: 09/10/18 05:30 09/10/18 05:30 PT 12.8 SECONDS (9.4-12.5) H 09/10/18 10:20 INR 1.13 09/10/18 10:20 APTT 23.0 Seconds (26.9-38.3) L 09/10/18 10:20 Attending/Attestation - Attestation I have personally seen and examined this patient.: Yes I have fully participated in the care of the patient.: Yes I have reviewed all pertinent clinical information, including history, physical exam and plan: Yes
--- NOTE | 2018-09-09 12:22 | CP.PCM.PCO ---
Physician Communication Note - Physician Communication Note Physician Communication Note: Intubated FIO2 increased to 60%
--- NOTE | 2018-09-09 12:31 | CP.CCUPN ---
<Augusto Zimmerman - Last Filed: 09/09/18 12:27> CCU Subjective - Physician Review Subjective (Free Text): 09/09/18 12:27 Augusto Zimmerman, PGY-1 ICU Progress Note for Dr. Velázquez: Pt was seen and examined this AM by ICU team. Overnight the pt had no acute issues. Pt is on ventilator due to bronch 07/07. Today pt will remain intubated due to slightly worsening CXR, will continue to monitor and attempt to wean when appropriate. ROS limited due to pt being intubated. CCU Objective - Vital Signs / Intake & Output Vital Signs (Last 4 hours): Vital Signs Temp Pulse BP Pulse Ox 09/09/18 12:00 98.4 F 84 86/38 L 97 09/09/18 11:44 98.6 F 78 88/45 L 96 09/09/18 11:39 98.6 F 81 85/27 L 95 09/09/18 11:32 98.6 F 100 H 86/41 L 95 09/09/18 10:59 98.6 F 65 81/48 L 95 09/09/18 10:58 98.8 F 75 74/40 L 94 L 09/09/18 10:55 94/46 L 09/09/18 10:00 98.6 F 82 94/46 L 94 L 09/09/18 09:00 98.8 F 79 94/42 L 93 L Intake and Output (Last 8hrs): Intake & Output 09/08/18 09/09/18 09/09/18 22:59 06:59 14:59 Intake Total 332 150 195 Output Total 400 Balance 332 -250 195 Intake: IV 332 150 195 Right Internal Jugular 27 left hand 50 Output: Urine 400 Urethral (Abrams) 400 Other: # Bowel Movements 2 - Physical Exam Head: Positive for: Atraumatic, Normocephalic Pupils: Positive for: PERRL Extroacular Muscles: Positive for: EOMI Conjunctiva: Positive for: Normal Mouth: Positive for: Moist Mucous Membranes Neck: Positive for: Normal Range of Motion Respiratory/Chest: Positive for: Decreased Breath Sounds (worse on R than L), Other (Pt is intubated and ETT in place.). Negative for: Respiratory Distress, Accessory Muscle Use, Wheezes, Rales, Rhonchi Cardiovascular: Positive for: Regular Rate and Rhythm, Normal S1, S2. Negative for: Murmurs Abdomen: Positive for: Normal Bowel Sounds. Negative for: Tenderness, Distention, Peritoneal Signs Back: Positive for: Decubitus Ulcer (Sacral) Upper Extremity: Positive for: Normal Inspection. Negative for: Cyanosis, Edema Lower Extremity: Positive for: Normal Inspection, Normal ROM, Other (2 large skin decubiti on the posterior thighs bilaterally, both infected with surrounding erythema) Neurological: Positive for: Other (Pt is intubated) Skin: Positive for: Warm, Dry, Normal Color. Negative for: Rashes Psychiatric: Positive for: Alert, Oriented x 3, Normal Insight - Medications Active Medications: Active Medications Generic Name Dose Route Start Last Admin Trade Name Freq PRN Reason Stop Dose Admin Acetaminophen 650 mg 08/24/18 00:04 09/03/18 13:54 Tylenol 325mg Tab PO 650 mg Q6 PRN Administration TEMP>=99.5F Bisacodyl 10 mg 08/28/18 12:39 Dulcolax RC HS PRN Constipation Budesonide 0.5 mg 09/02/18 08:00 09/09/18 07:24 Pulmicort Respules IH 0.5 mg [id number] CASSY Administration Collagenase 0 gm 08/25/18 10:00 09/09/18 11:27 Santyl TOP 1 appl DAILY CASSY Administration Ergocalciferol 1 cap 08/26/18 15:00 09/02/18 15:26 Drisdol 50,000 Intl Units Cap PO 1 cap Q7D CASYS Administration Folic Acid 1 mg 08/26/18 15:00 09/09/18 10:51 Folic Acid PO 1 mg DAILY CASSY Administration Furosemide 60 mg 09/09/18 10:15 09/09/18 10:55 Lasix IVP Not Given Q12 CASSY Heparin Sodium (Porcine) 5,000 units 09/06/18 22:00 09/09/18 05:30 Heparin SC 5,000 units Q8 CASSY Administration Protocol Dexmedetomidine HCl 400 mcg in 100 mls @ 3.856 mls/hr 08/31/18 16:50 09/09/18 11:28 Precedex 400mcg/100ml IV 1 mcg/kg/hr .Q24H PRN 19.278 mls/hr Sedation Titration Protocol 0.2 MCG/KG/HR Fentanyl Citrate 1,000 mcg in 100 mls @ 2 mls/hr 09/07/18 16:43 09/09/18 11:10 Fentanyl Citrate/Sodium Chloride 1 Mg/100 Ml IV 100 mcg/hr .Q24H PRN 10 mls/hr TITRATE PER MD ORDER Administration Protocol 20 MCG/HR Meropenem/Sodium Chloride 500 mg in 50 mls @ 100 mls/hr 09/08/18 22:00 09/09/18 10:50 Merrem Iv 500 Mg/Ns 50 Ml IVPB 09/13/18 22:01 100 mls/hr Q12 CASSY Administration Protocol Lactic Acid 0 ea 08/28/18 11:45 09/09/18 11:26 Lac-Hydrin 12% Cream (140 G) TOP 1 applic DAILY CASSY Administration Levalbuterol HCl 0.63 mg 09/04/18 20:00 09/09/18 07:24 Xopenex IH 0.63 mg [id number] CASSY Administration Metoprolol Tartrate 5 mg 09/08/18 09:18 09/09/18 05:23 Lopressor IVP 5 mg Q6 CASSY Administration Morphine Sulfate 1 mg 09/03/18 15:46 09/07/18 22:40 Morphine IVP 1 mg Q4H PRN Administration Pain, severe (8-10) Nicotine 1 patch 08/24/18 10:00 09/09/18 10:51 Nicoderm Cq TD 1 patch DAILY CASSY Administration Nystatin 0 ea 09/03/18 18:00 09/09/18 11:27 Mycostatin Cream TOP 1 cre TID CASSY Administration Ondansetron HCl 4 mg 08/24/18 00:04 Zofran Inj IVP Q4H PRN Nausea/Vomiting Pantoprazole Sodium 40 mg 09/02/18 10:00 09/09/18 10:51 Protonix Inj IVP 40 mg DAILY CASSY Administration Polyethylene Glycol 17 gm 08/31/18 10:00 09/09/18 10:52 Miralax PO 17 gm DAILY CASSY Administration Sodium Hypochlorite 0 ml 09/01/18 13:00 09/09/18 11:25 Dakins Solution 0.25% TOP 1 applic DAILY CASSY Administration - Patient Studies Lab Studies: Microbiology Studies 09/06/18 21:24 Bronchial Culture - Preliminary Bronchial Washings Yeast Species 09/08/18 14:45 C. difficile Antigen & Toxins A,B - Final Stool Lab Studies 09/09/18 09/09/18 09/09/18 Range/Units 11:27 07:47 05:30 WBC (4.5-11.0) 10^3/uL RBC (3.5-6.1) 10^6/uL Hgb (14.0-18.0) g/dL Hct (42.0-52.0) % MCV (80.0-105.0) fl MCH (25.0-35.0) pg MCHC (31.0-37.0) g/dl RDW (11.5-14.5) % Plt Count (120.0-450.0) 10^3/uL Manual Plt Count (120-450) K/mm3 MPV (7.0-11.0) fl Neut % (Auto) (50.0-68.0) % Lymph % (Auto) (22.0-35.0) % Gulf % (Auto) (1.0-6.0) % Eos % (Auto) (1.5-5.0) % Baso % (Auto) (0.0-3.0) % Lymph # (Auto) (1.2-3.4) Gulf # (Auto) (0.1-0.6) Eos # (Auto) (0.0-0.7) Baso # (Auto) (0.0-2.0) K/mm3 Absolute Neuts (auto) (1.4-6.5) pCO2 (35-45) mm/Hg pO2 (80-100) mm/Hg HCO3 (21-28) mmol/L ABG pH (7.35-7.45) ABG Total CO2 (22-28) mmol.L ABG O2 Saturation (95-98) % ABG O2 Content (15-23) ML/dl ABG Base Excess (-2.0-3.0) mmol/L ABG Hemoglobin (11.7-17.4) g/dL ABG Carboxyhemoglobin (0.5-1.5) % POC ABG HHb (Measured) (0-5) % ABG Methemoglobin (0.0-3.0) % ABG O2 Capacity (16-24) mL/dl Hgb O2 Saturation (95.0-98.0) % FiO2 % Sodium 141 (132-148) mmol/L Potassium 3.8 (3.6-5.0) mmol/L Chloride 106 (98-107) mmol/L Carbon Dioxide 33 (21-33) mmol/L Anion Gap 5 L (10-20) BUN 62 H (7-21) mg/dL Creatinine 1.7 H (0.8-1.5) mg/dl Est GFR ( Amer) 48 Est GFR (Non-Af Amer) 40 POC Glucose (mg/dL) 145 H 145 H (65-110) mg/dL Random Glucose 115 H (70-110) mg/dL Calcium 8.0 L (8.4-10.5) mg/dL Phosphorus 3.4 (2.5-4.5) mg/dL Magnesium 2.0 (1.7-2.2) mg/dL Total Bilirubin 0.7 (0.2-1.3) mg/dL Direct Bilirubin 0.3 (0.0-0.4) mg/dL AST 31 (17-59) U/L ALT 10 (7-56) U/L Alkaline Phosphatase 84 (38-126) U/L NT-Pro-B Natriuret Pep 8260 H (0-450) pg/mL Total Protein 5.5 L (5.8-8.3) g/dL Albumin 2.2 L (3.0-4.8) g/dL Globulin 3.3 gm/dL Albumin/Globulin Ratio 0.7 L (1.1-1.8) 09/09/18 09/09/18 09/08/18 Range/Units 05:30 05:10 22:58 WBC 7.9 (4.5-11.0) 10^3/uL RBC 3.91 (3.5-6.1) 10^6/uL Hgb 10.5 L (14.0-18.0) g/dL Hct 34.9 L (42.0-52.0) % MCV 89.3 (80.0-105.0) fl MCH 26.9 (25.0-35.0) pg MCHC 30.1 L (31.0-37.0) g/dl RDW 15.8 H (11.5-14.5) % Plt Count 82 L (120.0-450.0) 10^3/uL Manual Plt Count 89 L (120-450) K/mm3 MPV 10.4 (7.0-11.0) fl Neut % (Auto) 74.6 H (50.0-68.0) % Lymph % (Auto) 8.5 L (22.0-35.0) % Gulf % (Auto) 4.5 (1.0-6.0) % Eos % (Auto) 12.1 H (1.5-5.0) % Baso % (Auto) 0.3 (0.0-3.0) % Lymph # (Auto) 0.7 L (1.2-3.4) Gulf # (Auto) 0.4 (0.1-0.6) Eos # (Auto) 1.0 H (0.0-0.7) Baso # (Auto) 0.02 (0.0-2.0) K/mm3 Absolute Neuts (auto) 5.86 (1.4-6.5) pCO2 38 (35-45) mm/Hg pO2 61.0 L (80-100) mm/Hg HCO3 31.0 H (21-28) mmol/L ABG pH 7.52 H (7.35-7.45) ABG Total CO2 32.2 H (22-28) mmol.L ABG O2 Saturation 95.3 (95-98) % ABG O2 Content 13.8 L (15-23) ML/dl ABG Base Excess 7.6 H (-2.0-3.0) mmol/L ABG Hemoglobin 10.6 L (11.7-17.4) g/dL ABG Carboxyhemoglobin 2.0 H (0.5-1.5) % POC ABG HHb (Measured) 4.5 (0-5) % ABG Methemoglobin 1.3 (0.0-3.0) % ABG O2 Capacity 14.5 L (16-24) mL/dl Hgb O2 Saturation 92.1 L (95.0-98.0) % FiO2 50.0 % Sodium (132-148) mmol/L Potassium (3.6-5.0) mmol/L Chloride (98-107) mmol/L Carbon Dioxide (21-33) mmol/L Anion Gap (10-20) BUN (7-21) mg/dL Creatinine (0.8-1.5) mg/dl Est GFR ( Amer) Est GFR (Non-Af Amer) POC Glucose (mg/dL) 96 (65-110) mg/dL Random Glucose (70-110) mg/dL Calcium (8.4-10.5) mg/dL Phosphorus (2.5-4.5) mg/dL Magnesium (1.7-2.2) mg/dL Total Bilirubin (0.2-1.3) mg/dL Direct Bilirubin (0.0-0.4) mg/dL AST (17-59) U/L ALT (7-56) U/L Alkaline Phosphatase (38-126) U/L NT-Pro-B Natriuret Pep (0-450) pg/mL Total Protein (5.8-8.3) g/dL Albumin (3.0-4.8) g/dL Globulin gm/dL Albumin/Globulin Ratio (1.1-1.8) 09/08/18 Range/Units 16:54 WBC (4.5-11.0) 10^3/uL RBC (3.5-6.1) 10^6/uL Hgb (14.0-18.0) g/dL Hct (42.0-52.0) % MCV (80.0-105.0) fl MCH (25.0-35.0) pg MCHC (31.0-37.0) g/dl RDW (11.5-14.5) % Plt Count (120.0-450.0) 10^3/uL Manual Plt Count (120-450) K/mm3 MPV (7.0-11.0) fl Neut % (Auto) (50.0-68.0) % Lymph % (Auto) (22.0-35.0) % Gulf % (Auto) (1.0-6.0) % Eos % (Auto) (1.5-5.0) % Baso % (Auto) (0.0-3.0) % Lymph # (Auto) (1.2-3.4) Gulf # (Auto) (0.1-0.6) Eos # (Auto) (0.0-0.7) Baso # (Auto) (0.0-2.0) K/mm3 Absolute Neuts (auto) (1.4-6.5) pCO2 (35-45) mm/Hg pO2 (80-100) mm/Hg HCO3 (21-28) mmol/L ABG pH (7.35-7.45) ABG Total CO2 (22-28) mmol.L ABG O2 Saturation (95-98) % ABG O2 Content (15-23) ML/dl ABG Base Excess (-2.0-3.0) mmol/L ABG Hemoglobin (11.7-17.4) g/dL ABG Carboxyhemoglobin (0.5-1.5) % POC ABG HHb (Measured) (0-5) % ABG Methemoglobin (0.0-3.0) % ABG O2 Capacity (16-24) mL/dl Hgb O2 Saturation (95.0-98.0) % FiO2 % Sodium (132-148) mmol/L Potassium (3.6-5.0) mmol/L Chloride (98-107) mmol/L Carbon Dioxide (21-33) mmol/L Anion Gap (10-20) BUN (7-21) mg/dL Creatinine (0.8-1.5) mg/dl Est GFR ( Amer) Est GFR (Non-Af Amer) POC Glucose (mg/dL) 102 (65-110) mg/dL Random Glucose (70-110) mg/dL Calcium (8.4-10.5) mg/dL Phosphorus (2.5-4.5) mg/dL Magnesium (1.7-2.2) mg/dL Total Bilirubin (0.2-1.3) mg/dL Direct Bilirubin (0.0-0.4) mg/dL AST (17-59) U/L ALT (7-56) U/L Alkaline Phosphatase (38-126) U/L NT-Pro-B Natriuret Pep (0-450) pg/mL Total Protein (5.8-8.3) g/dL Albumin (3.0-4.8) g/dL Globulin gm/dL Albumin/Globulin Ratio (1.1-1.8) Laboratory Results - last 24 hr 09/08/18 09/08/18 09/09/18 16:54 22:58 05:10 WBC RBC Hgb Hct MCV MCH MCHC RDW Plt Count Manual Plt Count MPV Neut % (Auto) Lymph % (Auto) Gulf % (Auto) Eos % (Auto) Baso % (Auto) Lymph # (Auto) Gulf # (Auto) Eos # (Auto) Baso # (Auto) Absolute Neuts (auto) pCO2 38 pO2 61.0 L HCO3 31.0 H ABG pH 7.52 H ABG Total CO2 32.2 H ABG O2 Saturation 95.3 ABG O2 Content 13.8 L ABG Base Excess 7.6 H ABG Hemoglobin 10.6 L ABG Carboxyhemoglobin 2.0 H POC ABG HHb (Measured) 4.5 ABG Methemoglobin 1.3 ABG O2 Capacity 14.5 L Hgb O2 Saturation 92.1 L FiO2 50.0 Sodium Potassium Chloride Carbon Dioxide Anion Gap BUN Creatinine Est GFR ( Amer) Est GFR (Non-Af Amer) POC Glucose (mg/dL) 102 96 Random Glucose Calcium Phosphorus Magnesium Total Bilirubin Direct Bilirubin AST ALT Alkaline Phosphatase NT-Pro-B Natriuret Pep Total Protein Albumin Globulin Albumin/Globulin Ratio 09/09/18 09/09/18 09/09/18 05:30 05:30 07:47 WBC 7.9 RBC 3.91 Hgb 10.5 L Hct 34.9 L MCV 89.3 MCH 26.9 MCHC 30.1 L RDW 15.8 H Plt Count 82 L Manual Plt Count 89 L MPV 10.4 Neut % (Auto) 74.6 H Lymph % (Auto) 8.5 L Gulf % (Auto) 4.5 Eos % (Auto) 12.1 H Baso % (Auto) 0.3 Lymph # (Auto) 0.7 L Gulf # (Auto) 0.4 Eos # (Auto) 1.0 H Baso # (Auto) 0.02 Absolute Neuts (auto) 5.86 pCO2 pO2 HCO3 ABG pH ABG Total CO2 ABG O2 Saturation ABG O2 Content ABG Base Excess ABG Hemoglobin ABG Carboxyhemoglobin POC ABG HHb (Measured) ABG Methemoglobin ABG O2 Capacity Hgb O2 Saturation FiO2 Sodium 141 Potassium 3.8 Chloride 106 Carbon Dioxide 33 Anion Gap 5 L BUN 62 H Creatinine 1.7 H Est GFR ( Amer) 48 Est GFR (Non-Af Amer) 40 POC Glucose (mg/dL) 145 H Random Glucose 115 H Calcium 8.0 L Phosphorus 3.4 Magnesium 2.0 Total Bilirubin 0.7 Direct Bilirubin 0.3 AST 31 ALT 10 Alkaline Phosphatase 84 NT-Pro-B Natriuret Pep 8260 H Total Protein 5.5 L Albumin 2.2 L Globulin 3.3 Albumin/Globulin Ratio 0.7 L 09/09/18 11:27 WBC RBC Hgb Hct MCV MCH MCHC RDW Plt Count Manual Plt Count MPV Neut % (Auto) Lymph % (Auto) Gulf % (Auto) Eos % (Auto) Baso % (Auto) Lymph # (Auto) Gulf # (Auto) Eos # (Auto) Baso # (Auto) Absolute Neuts (auto) pCO2 pO2 HCO3 ABG pH ABG Total CO2 ABG O2 Saturation ABG O2 Content ABG Base Excess ABG Hemoglobin ABG Carboxyhemoglobin POC ABG HHb (Measured) ABG Methemoglobin ABG O2 Capacity Hgb O2 Saturation FiO2 Sodium Potassium Chloride Carbon Dioxide Anion Gap BUN Creatinine Est GFR ( Amer) Est GFR (Non-Af Amer) POC Glucose (mg/dL) 145 H Random Glucose Calcium Phosphorus Magnesium Total Bilirubin Direct Bilirubin AST ALT Alkaline Phosphatase NT-Pro-B Natriuret Pep Total Protein Albumin Globulin Albumin/Globulin Ratio Radiology Impressions: Radiology Impressions Chest X-Ray 09/08/18 10:59 IMPRESSION: The nasogastric tube is in satisfactory position. Chest X-Ray 09/09/18 06:00 IMPRESSION: No significant change in extensive right-sided infiltrate Chest X-Ray 09/09/18 06:59 IMPRESSION: Bilateral pleural effusion. Interstitial infiltrate right upper greater than right lower. No alfredo consolidation. Congestive change. Bilateral small pleural effusion. Possible interstitial pulmonary edema. Follow-up advised. EKG/Cardiology Studies: Cardiology / EKG Studies 09/09/18 06:00 EKG [ELECTROCARDIOGRAM] DAILY Comment: Reason For Exam: TACHYCARDIA 09/10/18 06:00 EKG [ELECTROCARDIOGRAM] DAILY Comment: Reason For Exam: TACHYCARDIA Fingerstick Blood Sugar Results: 96 Critical Care Progress Note - Nutrition Nutrition: Nutrition Category Date Time Status NPO Diet [DIET] Diets 09/06/18 Breakfast Ordered Assessment/Plan - Assessment and Plan (Free Text) Assessment: Pt is a 68 yo M with pmhx of chronic back pain and vertebral disc disease who presented to the [facility] ED for complaints of b/l foot pain and back pain. ICU is consulted for management of pts acute hypercapnic respiratory failure and AMS. Pt had R thoracentesis done 08/31, pt was also intubated due to continued resp acidosis even on 100% FiO2 on Bipap. Pt was noted to have recurrence of L sided white out likely 2/2 mucous plug. Pt was intubated today and bronched and mutliple mucus plugs were removed. Repeat CXR clearing of L side of the lung, with persistent R sided hilar infiltrate. Pt will be diuresed prior to extubation attempt tomorrow. Plan: Neuro: - AOx3 - Placed back on precedex and fentanyl drip Pulm: Acute hypercapnic resp failure leading to respiratory acidosis w/ chronic incomplete compensatory resp alkalosis: - Likely 2/2 CHF exacerbation vs PNA vs mucous plug. Unlikely PE due to r/o by CTA - Pt intubated and subsequently bronched for mucous plug removal 09/06 & 09/07 - Will extubate tomorrow after worsening CXR, will attempt to get more fluid off of lungs prior to extubation attempt - CXR: Improved L side of lung, with persistent R side, hilar infiltrate - Echo showed mildly imparied LV systolic dysfunction - BNP elevated - Abrams - Strict I/Os. Minimize positive fluid balance - Daily weight PNA vs CHF: - Procal elevated - CXR and echo resulted noted above - ID on board, recs appreciated: Merrem q8 and zyvox day 11 of combination tx - Repeat blood, urine and sputum cultures Cardio: Shock: Septic vs cardiogenic: - Pt weaned off of levophed and dobutamine - Continue lasix for diuresis for suspected cardiogenic shock - s/p Thoracentesis 08/31: 1700ml out - s/p bronch for mucous plug removal 09/06 & 09/07 - Tapered off stress dose steroids - Goal is MAP > 65 Nephro: Pre-renal Azotemia: - BUN/Cr = 62/1.7 - UA, urine sodium, urine cl, urine osms, urine protein and serum osms ordered - Will cont to monitor - Will give lasix, now due to fluid overload and respiratory compromise but will limit other nephrotoxic agents - Nephro consulted, recs appreciated - Monitor I/Os, try to maintain negative fluid balance. GI: - NPO - Protonix MSK: B/l foot cellulitis - MRSA (+): - continue multipodus boots - cultures growing MRSA - Continue IV Vanc. ID following - Pt is refusing MRI to r/o osteomyelitis ID: Stage 3 Sacral decub ulcer: - Pt refusing MRI - Santyl and local wound care - Cont Vancomycin per ID recs - Will discuss with ID to transition to oral abx in order to minimize positive fluid balance DVT PPx: Heparin/Protonix Case seen, examined and discussed with attending physician, Dr. Melania Zimmerman PGY1 <Joce Velázquez - Last Filed: 09/09/18 14:42> CCU Objective - Vital Signs / Intake & Output Vital Signs (Last 4 hours): Vital Signs Temp Pulse BP Pulse Ox 09/09/18 12:00 98.4 F 84 86/38 L 97 09/09/18 11:44 98.6 F 78 88/45 L 96 09/09/18 11:39 98.6 F 81 85/27 L 95 09/09/18 11:32 98.6 F 100 H 86/41 L 95 09/09/18 10:59 98.6 F 65 81/48 L 95 09/09/18 10:58 98.8 F 75 74/40 L 94 L 09/09/18 10:55 94/46 L Intake and Output (Last 8hrs): Intake & Output 09/08/18 09/09/18 09/09/18 22:59 06:59 14:59 Intake Total 332 150 295 Output Total 400 Balance 332 -250 295 Intake: IV 332 150 295 Right Internal Jugular 27 left hand 50 Output: Urine 400 Urethral (Abrams) 400 Other: # Bowel Movements 2 - Medications Active Medications: Active Medications Generic Name Dose Route Start Last Admin Trade Name Freq PRN Reason Stop Dose Admin Acetaminophen 650 mg 08/24/18 00:04 09/03/18 13:54 Tylenol 325mg Tab PO 650 mg Q6 PRN Administration TEMP>=99.5F Bisacodyl 10 mg 08/28/18 12:39 Dulcolax RC HS PRN Constipation Budesonide 0.5 mg 09/02/18 08:00 09/09/18 07:24 Pulmicort Respules IH 0.5 mg [id number] CASSY Administration Collagenase 0 gm 08/25/18 10:00 09/09/18 11:27 Santyl TOP 1 appl DAILY CASSY Administration Ergocalciferol 1 cap 08/26/18 15:00 09/02/18 15:26 Drisdol 50,000 Intl Units Cap PO 1 cap Q7D CASSY Administration Folic Acid 1 mg 08/26/18 15:00 09/09/18 10:51 Folic Acid PO 1 mg DAILY CASSY Administration Furosemide 60 mg 09/09/18 10:15 09/09/18 10:55 Lasix IVP Not Given Q12 CASSY Heparin Sodium (Porcine) 5,000 units 09/06/18 22:00 09/09/18 05:30 Heparin SC 5,000 units Q8 CASSY Administration Protocol Dexmedetomidine HCl 400 mcg in 100 mls @ 3.856 mls/hr 08/31/18 16:50 09/09/18 13:41 Precedex 400mcg/100ml IV 0.5 mcg/kg/hr .Q24H PRN 9.639 mls/hr Sedation Administration Protocol 0.2 MCG/KG/HR Fentanyl Citrate 1,000 mcg in 100 mls @ 2 mls/hr 09/07/18 16:43 09/09/18 11:10 Fentanyl Citrate/Sodium Chloride 1 Mg/100 Ml IV 100 mcg/hr .Q24H PRN 10 mls/hr TITRATE PER MD ORDER Administration Protocol 20 MCG/HR Meropenem/Sodium Chloride 500 mg in 50 mls @ 100 mls/hr 09/08/18 22:00 09/09/18 10:50 Merrem Iv 500 Mg/Ns 50 Ml IVPB 09/13/18 22:01 100 mls/hr Q12 CASSY Administration Protocol Lactic Acid 0 ea 08/28/18 11:45 09/09/18 11:26 Lac-Hydrin 12% Cream (140 G) TOP 1 applic DAILY CASSY Administration Levalbuterol HCl 0.63 mg 09/04/18 20:00 09/09/18 13:13 Xopenex IH 0.63 mg [id number] CASSY Administration Metoprolol Tartrate 5 mg 09/08/18 09:18 09/09/18 05:23 Lopressor IVP 5 mg Q6 CASSY Administration Morphine Sulfate 1 mg 09/03/18 15:46 09/07/18 22:40 Morphine IVP 1 mg Q4H PRN Administration Pain, severe (8-10) Nicotine 1 patch 08/24/18 10:00 09/09/18 10:51 Nicoderm Cq TD 1 patch DAILY CASSY Administration Nystatin 0 ea 09/03/18 18:00 09/09/18 11:27 Mycostatin Cream TOP 1 cre TID CASSY Administration Ondansetron HCl 4 mg 08/24/18 00:04 Zofran Inj IVP Q4H PRN Nausea/Vomiting Pantoprazole Sodium 40 mg 09/02/18 10:00 09/09/18 10:51 Protonix Inj IVP 40 mg DAILY CASSY Administration Polyethylene Glycol 17 gm 08/31/18 10:00 09/09/18 10:52 Miralax PO 17 gm DAILY CASSY Administration Sodium Hypochlorite 0 ml 09/01/18 13:00 09/09/18 11:25 Dakins Solution 0.25% TOP 1 applic DAILY CASSY Administration - Patient Studies Lab Studies: Microbiology Studies 09/07/18 14:00 Bronchial Culture - Preliminary Bronchial Washings Yeast Species 09/06/18 21:24 Bronchial Culture - Preliminary Bronchial Washings Yeast Species 09/08/18 14:45 C. difficile Antigen & Toxins A,B - Final Stool Lab Studies 09/09/18 09/09/18 09/09/18 Range/Units 11:27 07:47 05:30 WBC (4.5-11.0) 10^3/uL RBC (3.5-6.1) 10^6/uL Hgb (14.0-18.0) g/dL Hct (42.0-52.0) % MCV (80.0-105.0) fl MCH (25.0-35.0) pg MCHC (31.0-37.0) g/dl RDW (11.5-14.5) % Plt Count (120.0-450.0) 10^3/uL Manual Plt Count (120-450) K/mm3 MPV (7.0-11.0) fl Neut % (Auto) (50.0-68.0) % Lymph % (Auto) (22.0-35.0) % Gulf % (Auto) (1.0-6.0) % Eos % (Auto) (1.5-5.0) % Baso % (Auto) (0.0-3.0) % Lymph # (Auto) (1.2-3.4) [place] # (Auto) (0.1-0.6) Eos # (Auto) (0.0-0.7) Baso # (Auto) (0.0-2.0) K/mm3 Absolute Neuts (auto) (1.4-6.5) pCO2 (35-45) mm/Hg pO2 (80-100) mm/Hg HCO3 (21-28) mmol/L ABG pH (7.35-7.45) ABG Total CO2 (22-28) mmol.L ABG O2 Saturation (95-98) % ABG O2 Content (15-23) ML/dl ABG Base Excess (-2.0-3.0) mmol/L ABG Hemoglobin (11.7-17.4) g/dL ABG Carboxyhemoglobin (0.5-1.5) % POC ABG HHb (Measured) (0-5) % ABG Methemoglobin (0.0-3.0) % ABG O2 Capacity (16-24) mL/dl Hgb O2 Saturation (95.0-98.0) % FiO2 % Sodium 141 (132-148) mmol/L Potassium 3.8 (3.6-5.0) mmol/L Chloride 106 (98-107) mmol/L Carbon Dioxide 33 (21-33) mmol/L Anion Gap 5 L (10-20) BUN 62 H (7-21) mg/dL Creatinine 1.7 H (0.8-1.5) mg/dl Est GFR ( Amer) 48 Est GFR (Non-Af Amer) 40 POC Glucose (mg/dL) 145 H 145 H (65-110) mg/dL Random Glucose 115 H (70-110) mg/dL Calcium 8.0 L (8.4-10.5) mg/dL Phosphorus 3.4 (2.5-4.5) mg/dL Magnesium 2.0 (1.7-2.2) mg/dL Total Bilirubin 0.7 (0.2-1.3) mg/dL Direct Bilirubin 0.3 (0.0-0.4) mg/dL AST 31 (17-59) U/L ALT 10 (7-56) U/L Alkaline Phosphatase 84 (38-126) U/L NT-Pro-B Natriuret Pep 8260 H (0-450) pg/mL Total Protein 5.5 L (5.8-8.3) g/dL Albumin 2.2 L (3.0-4.8) g/dL Globulin 3.3 gm/dL Albumin/Globulin Ratio 0.7 L (1.1-1.8) 09/09/18 09/09/18 09/08/18 Range/Units 05:30 05:10 22:58 WBC 7.9 (4.5-11.0) 10^3/uL RBC 3.91 (3.5-6.1) 10^6/uL Hgb 10.5 L (14.0-18.0) g/dL Hct 34.9 L (42.0-52.0) % MCV 89.3 (80.0-105.0) fl MCH 26.9 (25.0-35.0) pg MCHC 30.1 L (31.0-37.0) g/dl RDW 15.8 H (11.5-14.5) % Plt Count 82 L (120.0-450.0) 10^3/uL Manual Plt Count 89 L (120-450) K/mm3 MPV 10.4 (7.0-11.0) fl Neut % (Auto) 74.6 H (50.0-68.0) % Lymph % (Auto) 8.5 L (22.0-35.0) % Gulf % (Auto) 4.5 (1.0-6.0) % Eos % (Auto) 12.1 H (1.5-5.0) % Baso % (Auto) 0.3 (0.0-3.0) % Lymph # (Auto) 0.7 L (1.2-3.4) Gulf # (Auto) 0.4 (0.1-0.6) Eos # (Auto) 1.0 H (0.0-0.7) Baso # (Auto) 0.02 (0.0-2.0) K/mm3 Absolute Neuts (auto) 5.86 (1.4-6.5) pCO2 38 (35-45) mm/Hg pO2 61.0 L (80-100) mm/Hg HCO3 31.0 H (21-28) mmol/L ABG pH 7.52 H (7.35-7.45) ABG Total CO2 32.2 H (22-28) mmol.L ABG O2 Saturation 95.3 (95-98) % ABG O2 Content 13.8 L (15-23) ML/dl ABG Base Excess 7.6 H (-2.0-3.0) mmol/L ABG Hemoglobin 10.6 L (11.7-17.4) g/dL ABG Carboxyhemoglobin 2.0 H (0.5-1.5) % POC ABG HHb (Measured) 4.5 (0-5) % ABG Methemoglobin 1.3 (0.0-3.0) % ABG O2 Capacity 14.5 L (16-24) mL/dl Hgb O2 Saturation 92.1 L (95.0-98.0) % FiO2 50.0 % Sodium (132-148) mmol/L Potassium (3.6-5.0) mmol/L Chloride (98-107) mmol/L Carbon Dioxide (21-33) mmol/L Anion Gap (10-20) BUN (7-21) mg/dL Creatinine (0.8-1.5) mg/dl Est GFR ( Amer) Est GFR (Non-Af Amer) POC Glucose (mg/dL) 96 (65-110) mg/dL Random Glucose (70-110) mg/dL Calcium (8.4-10.5) mg/dL Phosphorus (2.5-4.5) mg/dL Magnesium (1.7-2.2) mg/dL Total Bilirubin (0.2-1.3) mg/dL Direct Bilirubin (0.0-0.4) mg/dL AST (17-59) U/L ALT (7-56) U/L Alkaline Phosphatase (38-126) U/L NT-Pro-B Natriuret Pep (0-450) pg/mL Total Protein (5.8-8.3) g/dL Albumin (3.0-4.8) g/dL Globulin gm/dL Albumin/Globulin Ratio (1.1-1.8) 09/08/18 Range/Units 16:54 WBC (4.5-11.0) 10^3/uL RBC (3.5-6.1) 10^6/uL Hgb (14.0-18.0) g/dL Hct (42.0-52.0) % MCV (80.0-105.0) fl MCH (25.0-35.0) pg MCHC (31.0-37.0) g/dl RDW (11.5-14.5) % Plt Count (120.0-450.0) 10^3/uL Manual Plt Count (120-450) K/mm3 MPV (7.0-11.0) fl Neut % (Auto) (50.0-68.0) % Lymph % (Auto) (22.0-35.0) % Gulf % (Auto) (1.0-6.0) % Eos % (Auto) (1.5-5.0) % Baso % (Auto) (0.0-3.0) % Lymph # (Auto) (1.2-3.4) Gulf # (Auto) (0.1-0.6) Eos # (Auto) (0.0-0.7) Baso # (Auto) (0.0-2.0) K/mm3 Absolute Neuts (auto) (1.4-6.5) pCO2 (35-45) mm/Hg pO2 (80-100) mm/Hg HCO3 (21-28) mmol/L ABG pH (7.35-7.45) ABG Total CO2 (22-28) mmol.L ABG O2 Saturation (95-98) % ABG O2 Content (15-23) ML/dl ABG Base Excess (-2.0-3.0) mmol/L ABG Hemoglobin (11.7-17.4) g/dL ABG Carboxyhemoglobin (0.5-1.5) % POC ABG HHb (Measured) (0-5) % ABG Methemoglobin (0.0-3.0) % ABG O2 Capacity (16-24) mL/dl Hgb O2 Saturation (95.0-98.0) % FiO2 % Sodium (132-148) mmol/L Potassium (3.6-5.0) mmol/L Chloride (98-107) mmol/L Carbon Dioxide (21-33) mmol/L Anion Gap (10-20) BUN (7-21) mg/dL Creatinine (0.8-1.5) mg/dl Est GFR ( Amer) Est GFR (Non-Af Amer) POC Glucose (mg/dL) 102 (65-110) mg/dL Random Glucose (70-110) mg/dL Calcium (8.4-10.5) mg/dL Phosphorus (2.5-4.5) mg/dL Magnesium (1.7-2.2) mg/dL Total Bilirubin (0.2-1.3) mg/dL Direct Bilirubin (0.0-0.4) mg/dL AST (17-59) U/L ALT (7-56) U/L Alkaline Phosphatase (38-126) U/L NT-Pro-B Natriuret Pep (0-450) pg/mL Total Protein (5.8-8.3) g/dL Albumin (3.0-4.8) g/dL Globulin gm/dL Albumin/Globulin Ratio (1.1-1.8) Laboratory Results - last 24 hr 09/08/18 09/08/18 09/09/18 16:54 22:58 05:10 WBC RBC Hgb Hct MCV MCH MCHC RDW Plt Count Manual Plt Count MPV Neut % (Auto) Lymph % (Auto) Gulf % (Auto) Eos % (Auto) Baso % (Auto) Lymph # (Auto) Gulf # (Auto) Eos # (Auto) Baso # (Auto) Absolute Neuts (auto) pCO2 38 pO2 61.0 L HCO3 31.0 H ABG pH 7.52 H ABG Total CO2 32.2 H ABG O2 Saturation 95.3 ABG O2 Content 13.8 L ABG Base Excess 7.6 H ABG Hemoglobin 10.6 L ABG Carboxyhemoglobin 2.0 H POC ABG HHb (Measured) 4.5 ABG Methemoglobin 1.3 ABG O2 Capacity 14.5 L Hgb O2 Saturation 92.1 L FiO2 50.0 Sodium Potassium Chloride Carbon Dioxide Anion Gap BUN Creatinine Est GFR ( Amer) Est GFR (Non-Af Amer) POC Glucose (mg/dL) 102 96 Random Glucose Calcium Phosphorus Magnesium Total Bilirubin Direct Bilirubin AST ALT Alkaline Phosphatase NT-Pro-B Natriuret Pep Total Protein Albumin Globulin Albumin/Globulin Ratio 09/09/18 09/09/18 09/09/18 05:30 05:30 07:47 WBC 7.9 RBC 3.91 Hgb 10.5 L Hct 34.9 L MCV 89.3 MCH 26.9 MCHC 30.1 L RDW 15.8 H Plt Count 82 L Manual Plt Count 89 L MPV 10.4 Neut % (Auto) 74.6 H Lymph % (Auto) 8.5 L Gulf % (Auto) 4.5 Eos % (Auto) 12.1 H Baso % (Auto) 0.3 Lymph # (Auto) 0.7 L Gulf # (Auto) 0.4 Eos # (Auto) 1.0 H Baso # (Auto) 0.02 Absolute Neuts (auto) 5.86 pCO2 pO2 HCO3 ABG pH ABG Total CO2 ABG O2 Saturation ABG O2 Content ABG Base Excess ABG Hemoglobin ABG Carboxyhemoglobin POC ABG HHb (Measured) ABG Methemoglobin ABG O2 Capacity Hgb O2 Saturation FiO2 Sodium 141 Potassium 3.8 Chloride 106 Carbon Dioxide 33 Anion Gap 5 L BUN 62 H Creatinine 1.7 H Est GFR ( Amer) 48 Est GFR (Non-Af Amer) 40 POC Glucose (mg/dL) 145 H Random Glucose 115 H Calcium 8.0 L Phosphorus 3.4 Magnesium 2.0 Total Bilirubin 0.7 Direct Bilirubin 0.3 AST 31 ALT 10 Alkaline Phosphatase 84 NT-Pro-B Natriuret Pep 8260 H Total Protein 5.5 L Albumin 2.2 L Globulin 3.3 Albumin/Globulin Ratio 0.7 L 09/09/18 11:27 WBC RBC Hgb Hct MCV MCH MCHC RDW Plt Count Manual Plt Count MPV Neut % (Auto) Lymph % (Auto) Gulf % (Auto) Eos % (Auto) Baso % (Auto) Lymph # (Auto) Gulf # (Auto) Eos # (Auto) Baso # (Auto) Absolute Neuts (auto) pCO2 pO2 HCO3 ABG pH ABG Total CO2 ABG O2 Saturation ABG O2 Content ABG Base Excess ABG Hemoglobin ABG Carboxyhemoglobin POC ABG HHb (Measured) ABG Methemoglobin ABG O2 Capacity Hgb O2 Saturation FiO2 Sodium Potassium Chloride Carbon Dioxide Anion Gap BUN Creatinine Est GFR ( Amer) Est GFR (Non-Af Amer) POC Glucose (mg/dL) 145 H Random Glucose Calcium Phosphorus Magnesium Total Bilirubin Direct Bilirubin AST ALT Alkaline Phosphatase NT-Pro-B Natriuret Pep Total Protein Albumin Globulin Albumin/Globulin Ratio Radiology Impressions: Radiology Impressions Chest X-Ray 09/09/18 06:00 IMPRESSION: No significant change in extensive right-sided infiltrate Chest X-Ray 09/09/18 06:59 IMPRESSION: Bilateral pleural effusion. Interstitial infiltrate right upper greater than right lower. No alfredo consolidation. Congestive change. Bilateral small pleural effusion. Possible interstitial pulmonary edema. Follow-up advised. EKG/Cardiology Studies: Cardiology / EKG Studies 09/09/18 06:00 EKG [ELECTROCARDIOGRAM] DAILY Comment: Reason For Exam: TACHYCARDIA 09/10/18 06:00 EKG [ELECTROCARDIOGRAM] DAILY Comment: Reason For Exam: TACHYCARDIA Critical Care Progress Note - Nutrition Nutrition: Nutrition Category Date Time Status NPO Diet [DIET] Diets 09/06/18 Breakfast Ordered Assessment/Plan - Assessment and Plan (Free Text) Plan: Patient is 68yo male with PMHx of chronic back pain, admitted for foot pain, subequently went into resp failure, shock, requiring vasopressor support, intubation. Currently intubated, OFF vasopressor support Labs, imaging, chart reviewed CXR with improvement of opacification of L lung, s/p bronchoscopy x [address] Renal function has reached a plateau, Cr 1.7 today Pt s/p bronchoscopy today with BRENNAN wash and suction, subsequent improvement in LLL opacification on CXR Today ABG still with large A-a gradient, hypoxemia, not ready to be weaned off, pulmonary following Shock, resolved Pleural effusions Mucus plugging Respiratory failure CHF PNA Recommend: - cont with vent support, low tidal vol ventilation, daily sedation vacation, ABGs, CPAP trials - broad spectrum abx as per ID, follow up cultures, - follow up cardiology - monitor LFTS - aggressive chest PT - Lopressor 25mg BID - Precedex drip - increse Lasix to 60mg IV BID, net goal neg 1L per day - Feeds - monitor Cr closely - renal follow up - GI ppx - DVT ppx - Monitor in MICU Critical care time 30 minutes
--- NOTE | 2018-09-09 13:03 | PN ---
DATE: 09/09/2018 LOCATION: He is in the Critical Care Unit. SUBJECTIVE: The patient is under the care of Dr. Carlos Hernandez. The patient is currently in the ICU, intubated. In reviewing his case, the patient presented with history of wounds on the leg, swelling of the leg, shortness of breath and THE PATIENT HAS SIGNIFICANT HISTORY OF ALLERGY TO PENICILLIN. The patient has history of chronic obstructive lung disease. The patient also has history of pain management and history of back pain. The doctor of note was Dr. Chance Magallon, he is a Neurologist. However, the patient is seen this morning. He is intubated. He is very restless. He is defiant about the tubes in his throat, tubes in his mouth and nose, etc., and the patient had to be actively sedated. VITAL SIGNS: Currently the patient's heart rate 116, blood pressure ranging around 90 to 100 systolic. The patient is on 50% of oxygen, at this time FiO2 is 50%. The patient is under the care of the Critical Care Unit physician and also Dr. Mike Mahmood, he is a [employer] Floor [employer]. The patient has multiple consultants on the case. His examination; the patient's breath sounds are diminished bilaterally. The patient has some occasional rhonchi and crepitations. Chest x-ray reveals collapsed lung on the left lung. There is pneumonia on the right side. The patient has pleural effusion on both sides. Reviewing his case, the patient's admission; chest x-ray was within normal range. The patient denies any history of drug abuse. The patient denies history of alcohol intake, but he does smoke 1 to 1-1/2 packs of cigarettes a day. His current condition is critical. LIST OF MEDICATIONS: The patient is on fentanyl drip for sedation. The patient is on . The patient is getting heparin. The patient gets his Lasix once a day 40 mg. The patient is on metoprolol 5 mg IV every 6 hours for elevated heart rate and to control the systolic blood pressure. The patient is on meropenem every 12 hours. The patient is on morphine for pain. The patient is also getting Precedex drip and pantoprazole 40 mg IV. The patient is on Pulmicort which is budesonide every 12 hours and medications for wound care. LABORATORY DATA: The patient's blood work, elevated. His BUN is 62 and creatinine 1.7. The patient's hemoglobin is about 10. The patient also has some chronic renal insufficiency, has it developed during his stay in the hospital. ASSESSMENT AND PLAN: The patient is being fed by nasal tube and he is also given fluids by nasogastric tube. His condition is critical. We will medically followup and take care of the patient. Donovan Aleman MD MTDSantos
--- NOTE | 2018-09-09 13:32 | CP.PCM.PN ---
Subjective - Date & Time of Evaluation Date of Evaluation: 09/09/18 Time of Evaluation: 09:30 - Subjective Subjective: Still intubated, sedated but arousable, no fevers. Objective - Vital Signs/Intake and Output Vital Signs (last 24 hours): Temp Pulse Resp BP Pulse Ox 98.4 F 86 23 102/52 L 93 L 09/08/18 07:50 09/08/18 12:13 09/08/18 02:30 09/08/18 12:13 09/08/18 07:50 Intake and Output: 09/08/18 09/08/18 06:59 18:59 Intake Total 100 80 Output Total 400 Balance -300 80 - Medications Medications: Current Medications Acetaminophen (Tylenol 325mg Tab) 650 mg PO Q6 PRN PRN Reason: TEMP>=99.5F Last Admin: 09/03/18 13:54 Dose: 650 mg Acetylcysteine (Acetylcysteine 20%) 4 ml IH [id number] [facility] [place] Last Admin: 09/08/18 08:25 Dose: 4 ml Bisacodyl (Dulcolax) 10 mg RC HS PRN PRN Reason: Constipation Budesonide (Pulmicort Respules) 0.5 mg IH [id number] [facility] [place] Last Admin: 09/08/18 08:25 Dose: 0.5 mg Collagenase (Santyl) 0 gm TOP DAILY [facility] [place] Last Admin: 09/07/18 14:32 Dose: 2 appl Ergocalciferol (Drisdol 50,000 Intl Units Cap) 1 cap PO Q7D [facility] [place] Last Admin: 09/02/18 15:26 Dose: 1 cap Folic Acid (Folic Acid) 1 mg PO DAILY [facility] [place] Last Admin: 09/07/18 14:31 Dose: Not Given Furosemide (Lasix) 40 mg IVP DAILY [facility] [place] Last Admin: 09/08/18 11:48 Dose: 40 mg Heparin Sodium (Porcine) (Heparin) 5,000 units SC Q8 [facility] [place]; Protocol Last Admin: 09/08/18 05:09 Dose: 5,000 units Dexmedetomidine HCl (Precedex 400mcg/100ml) 400 mcg in 100 mls @ 3.856 mls/hr IV .Q24H PRN; Protocol PRN Reason: Sedation Last Admin: 09/08/18 10:44 Dose: 0.05 mcg/kg/hr, 1 mls/hr Acetaminophen (Ofirmev) 1,000 mg in 100 mls @ 400 mls/hr IVPB Q6H PRN PRN Reason: Temperature Stop: 09/09/18 08:59 Last Admin: 09/07/18 09:42 Dose: 400 mls/hr Fentanyl Citrate (Fentanyl Citrate/Sodium Chloride 1 Mg/100 Ml) 1,000 mcg in 100 mls @ 2 mls/hr IV .Q24H PRN; Protocol PRN Reason: TITRATE PER MD ORDER Last Admin: 09/08/18 10:43 Dose: 20 mcg/hr, 2 mls/hr Lactic Acid (Lac-Hydrin 12% Cream (140 G)) 0 ea TOP DAILY [facility] [place] Last Admin: 09/07/18 14:31 Dose: 2 applic Levalbuterol HCl (Xopenex) 0.63 mg IH [id number] [facility] [place] Last Admin: 09/08/18 08:25 Dose: 0.63 mg Metoprolol Tartrate (Lopressor) 5 mg IVP Q6 [facility] [place] Last Admin: 09/08/18 12:13 Dose: Not Given Morphine Sulfate (Morphine) 1 mg IVP Q4H PRN PRN Reason: Pain, severe (8-10) Last Admin: 09/07/18 22:40 Dose: 1 mg Nicotine (Nicoderm Cq) 1 patch TD DAILY [facility] [place] Last Admin: 09/08/18 09:42 Dose: 1 patch Nystatin (Mycostatin Cream) 0 ea TOP TID [facility] [place] Last Admin: 09/07/18 17:35 Dose: Not Given Ondansetron HCl (Zofran Inj) 4 mg IVP Q4H PRN PRN Reason: Nausea/Vomiting Pantoprazole Sodium (Protonix Inj) 40 mg IVP DAILY [facility] [place] Last Admin: 09/08/18 09:42 Dose: 40 mg Polyethylene Glycol (Miralax) 17 gm PO DAILY [facility] [place] Last Admin: 09/07/18 14:28 Dose: 17 gm Sodium Hypochlorite (Dakins Solution 0.25%) 0 ml TOP DAILY [facility] [place] Last Admin: 09/07/18 14:30 Dose: 2 applic - Labs Labs: 09/08/18 06:00 09/08/18 06:00 PT 15.1 SECONDS (9.4-12.5) H 08/23/18 22:20 INR 1.36 08/23/18 22:20 APTT 27.9 Seconds (26.9-38.3) 08/23/18 22:20 - Constitutional Appears: Chronically Ill - Head Exam Head Exam: NORMAL INSPECTION - ENT Exam Additional comments: ET tube in place - Neck Exam Additional comments: right IJ TLC in place - Respiratory Exam Respiratory Exam: Decreased Breath Sounds - Cardiovascular Exam Cardiovascular Exam: +S1, +S2 - GI/Abdominal Exam GI & Abdominal Exam: Soft. absent: Tenderness Assessment and Plan - Assessment and Plan (Free Text) Plan: Assessment severe sepsis / S/P shock now again with ventilator-dependent respiratory fail ure and acute renal failure due to probable right lower lobe hospital-acquired pneumonia, with bilateral pleural effusions S/P right sided thoracentesis, now again with left hemithorax opacification with mucus plugging S/P bronchoscopy and removal of mucus plugs Infected left lower extremity wounds, R/O osteomyelitis, grew MRSA chronic back pain vertebral disc disease venous stasis dermatitis Plan we have discontinued Zyvox because of low platelets (multifoactorial cause) and will continue intermittent Vancomycin IV and will also continue Merrem (day 11 of antibiotics) - follow up repeat blood cx (negative so far), sputum cx shwo(from sample taken from bronchoscopy 2 days ago) showing yeast which is probably colonization; Vancomycin will also cover the MRSA in the foot mucus plugs were noted and removed during bronchoscopy 09/06/2018 awaiting MRI of the foot but patient is critically ill currently patient had thoracentesis previously on the right and fluid looks to be transudative discussed with Dr. Lloyd - no surgery for the foot for now will continue to follow clinically monitor platelet count overall prognosis is poor
--- NOTE | 2018-09-09 14:30 | PN ---
DATE: 09/09/2018 SUBJECTIVE: The patient remains intubated. He is unable to wean off the respirator. PHYSICAL EXAMINATION: VITAL SIGNS: Blood pressure 94/46, heart rate is 116. NECK: Negative JVD. LUNGS: Decreased breath sounds bilaterally. HEART: Reveal S1, S2. EXTREMITIES: Without change. LABORATORY DATA: Hemoglobin is 10.1, BUN and creatinine 62 and 1.7. IMPRESSION: 1. Respiratory failure. 2. Pneumonia. 3. Pleural effusions. 4. Chronic obstructive pulmonary disease. 5. Good left ventricular function. PLAN: Given these findings, the patient is continued on IV antibiotics. We will need to follow his BUN and creatinine carefully. He is becoming prerenal. Jero Salamanca MD
[2018-09-09] MEDS: Ergocalciferol 50,000 Intl Units Cap PO SCH (15:56)
--- NOTE | 2018-09-09 18:58 | US ---
PROCEDURE: Right upper extremity venous US CLINICAL HISTORY: Arm pain and swelling Evaluate for deep venous thrombosis. PHYSICIAN(S): Jero Tomlinson M.D FINDINGS: This is a very limited study due to the patient's condition and portable technique The visualized rightinternal jugular vein is sonographically normal and compressible. No evidence of obstruction or thrombus is seen. The visualized segments of the right subclavian vein are patent with normal waveforms. No sonographic evidence of obstruction or thrombosis is seen. The visualized deep venous system of the proximal right upper extremity is sonographically normal and compressible. IMPRESSION: 1. No sonographic evidence for deep venous thrombosis in the visualized segments of the right upper extremity. 2. Very limited study
--- NOTE | 2018-09-09 21:43 | CARD ---
APPROVED REPORT Date of service: 09/09/2018 EKG Measurement Heart [id number] <Conclusion> Normal sinus rhythm Right bundle branch block Abnormal ECG
--- NOTE | 2018-09-09 23:07 | CARD ---
APPROVED REPORT Date of service: 09/09/2018 EKG Measurement Heart [id number] <Conclusion> Sinus tachycardia Right bundle branch block Abnormal ECG
[2018-09-10] MEDS: Morphine 2 mg/ml ISec IVP PRN ×4 (00:46→19:01)
[2018-09-10] MEDS: Metoprolol 1 mg/ml Inj IVP SCH ×5 (00:46→17:28)
[2018-09-10] MEDS: Levalbuterol 0.63 MG/3 ML Inhal Soln UD IH SCH ×4 (02:52→20:55)
[2018-09-10] MEDS: Fentanyl 1000mcg/100ml NS 1,000 MCG/100 ML BAG IV PRN ×3 (03:57→22:56)
[2018-09-10 06:21] LABS: ARTERIAL BLOOD GAS HCO3 33.7 mmol/L (21-28); ARTERIAL BLOOD GAS HEMOGLOBIN 14.5 g/dL (11.7-17.4); ARTERIAL BLOOD GAS O2 CAPACITY 19.7 mL/dl (16-24); ARTERIAL BLOOD GAS O2 CONTENT 18.6 ML/dl (15-23); ARTERIAL BLOOD GAS O2 SAT 94.4 % (95-98); ARTERIAL BLOOD GAS PCO2 57 mm/Hg (35-45); ARTERIAL BLOOD GAS PH 7.38 (7.35-7.45); ARTERIAL BLOOD GAS TCO2 35.4 mmol.L (22-28)
[2018-09-10 06:46] LABS: BASO # 0.02 K/mm3 (0.0-2.0); BASO % 0.2 % (0.0-3.0); EOS # 1.3 (0.0-0.7); HEMOGLOBIN 10.2 g/dL (14.0-18.0); LYMPH # 1.2 (1.2-3.4); LYMPH % 12.7 % (22.0-35.0); MEAN CELL VOLUME 91.9 fl (80.0-105.0); MEAN CORPUSCULAR HEMOGLOBIN 26.5 pg (25.0-35.0); MEAN CORPUSCULAR HGB CONC 28.8 g/dl (31.0-37.0); MONO # 0.5 (0.1-0.6); MONO % 5.8 % (1.0-6.0); RBC 3.85 10^6/uL (3.5-6.1); RED CELL DISTRIBUTION WIDTH 16.2 % (11.5-14.5); WHITE BLOOD COUNT 9.4 10^3/uL (4.5-11.0)
[2018-09-10] MEDS: Budesonide 0.5 mg/2 ml Inhal Susp UD IH SCH ×2 (07:02→20:55)
[2018-09-10 07:20] LABS: ALB/GLOB RATIO 0.7 (1.1-1.8); ALBUMIN 2.2 g/dL (3.0-4.8); BILIRUBIN,DIRECT 0.2 mg/dL (0.0-0.4); CALCIUM 8.1 mg/dL (8.4-10.5)
[2018-09-10] MEDS: Dexmedetomidine 400mcg/100mL 400 MCG/100 ML BOTTLE IV PRN ×4 (08:38→23:24)
--- NOTE | 2018-09-10 09:15 | CARD ---
APPROVED REPORT Date of service: 09/10/2018 EKG Measurement Heart [id number] <Conclusion> Sinus tachycardia Right bundle branch block Abnormal ECG
--- NOTE | 2018-09-10 09:29 | CP.CCUPN ---
<Augusto Zimmerman - Last Filed: 09/10/18 12:52> CCU Subjective - Physician Review Subjective (Free Text): 09/10/18 12:52 Augusto Zimmerman, PGY-1 ICU Progress Note for Dr. Velázquez: Pt was seen and examined this AM by ICU team. Overnight the pt had no acute issues. Pt is on ventilator due to bronch 07/07. Today pt will remain intubated due to slightly worsening CXR, will continue to monitor and attempt to wean when appropriate. ROS limited due to pt being intubated. CCU Objective - Vital Signs / Intake & Output Vital Signs (Last 4 hours): Vital Signs Pulse BP 09/10/18 08:37 118 H 128/58 L 09/10/18 06:00 112 H 09/10/18 05:33 119 H 137/57 L Intake and Output (Last 8hrs): Intake & Output 09/09/18 09/10/18 09/10/18 22:59 06:59 14:59 Intake Total 1492 1493 100 Output Total 775 700 Balance 717 793 100 Intake: IV 462 553 100 Right Internal Jugular 362 340 left hand 0 Oral 90 Tube Feeding 940 940 Output: Urine 175 700 Urethral (Abrams) 175 700 Stool 600 Other: # Bowel Movements 1 - Physical Exam Head: Positive for: Atraumatic, Normocephalic Pupils: Positive for: PERRL Extroacular Muscles: Positive for: EOMI Conjunctiva: Positive for: Normal Mouth: Positive for: Moist Mucous Membranes Neck: Positive for: Normal Range of Motion Respiratory/Chest: Positive for: Decreased Breath Sounds (worse on R than L), Other (Pt is intubated and ETT in place.). Negative for: Respiratory Distress, Accessory Muscle Use, Wheezes, Rales, Rhonchi Cardiovascular: Positive for: Regular Rate and Rhythm, Normal S1, S2. Negative for: Murmurs Abdomen: Positive for: Normal Bowel Sounds. Negative for: Tenderness, Distention, Peritoneal Signs Back: Positive for: Decubitus Ulcer (Sacral) Upper Extremity: Positive for: Normal Inspection. Negative for: Cyanosis, Edema Lower Extremity: Positive for: Normal Inspection, Normal ROM, Other (2 large skin decubiti on the posterior thighs bilaterally, both infected with surrounding erythema) Neurological: Positive for: Other (Pt is intubated) Skin: Positive for: Warm, Dry, Normal Color. Negative for: Rashes Psychiatric: Positive for: Other (intubated and sedated) - Medications Active Medications: Active Medications Generic Name Dose Route Start Last Admin Trade Name Freq PRN Reason Stop Dose Admin Acetaminophen 650 mg 08/24/18 00:04 09/03/18 13:54 Tylenol 325mg Tab PO 650 mg Q6 PRN Administration TEMP>=99.5F Bisacodyl 10 mg 08/28/18 12:39 Dulcolax RC HS PRN Constipation Budesonide 0.5 mg 09/02/18 08:00 09/10/18 07:02 Pulmicort Respules IH 0.5 mg [id number] CASSY Administration Collagenase 0 gm 08/25/18 10:00 09/09/18 11:27 Santyl TOP 1 appl DAILY CASSY Administration Ergocalciferol 1 cap 08/26/18 15:00 09/09/18 15:56 Drisdol 50,000 Intl Units Cap PO 1 cap Q7D CASSY Administration Folic Acid 1 mg 08/26/18 15:00 09/09/18 10:51 Folic Acid PO 1 mg DAILY CASSY Administration Furosemide 60 mg 09/09/18 10:15 09/09/18 23:28 Lasix IVP 60 mg Q12 CASSY Administration Heparin Sodium (Porcine) 5,000 units 09/06/18 22:00 09/09/18 05:30 Heparin SC 5,000 units Q8 CASSY Administration Protocol Dexmedetomidine HCl 400 mcg in 100 mls @ 3.856 mls/hr 08/31/18 16:50 09/10/18 08:38 Precedex 400mcg/100ml IV 0.5 mcg/kg/hr .Q24H PRN 9.639 mls/hr Sedation Administration Protocol 0.2 MCG/KG/HR Fentanyl Citrate 1,000 mcg in 100 mls @ 2 mls/hr 09/07/18 16:43 09/10/18 06:00 Fentanyl Citrate/Sodium Chloride 1 Mg/100 Ml IV 120 mcg/hr .Q24H PRN 12 mls/hr TITRATE PER MD ORDER Titration Protocol 20 MCG/HR Meropenem/Sodium Chloride 500 mg in 50 mls @ 100 mls/hr 09/08/18 22:00 09/09/18 23:28 Merrem Iv 500 Mg/Ns 50 Ml IVPB 09/13/18 22:01 100 mls/hr Q12 CASSY Administration Protocol Lactic Acid 0 ea 08/28/18 11:45 09/09/18 11:26 Lac-Hydrin 12% Cream (140 G) TOP 1 applic DAILY CASSY Administration Levalbuterol HCl 0.63 mg 09/04/18 20:00 09/10/18 07:02 Xopenex IH 0.63 mg [id number] CASSY Administration Metoprolol Tartrate 5 mg 09/08/18 09:18 09/10/18 08:37 Lopressor IVP 5 mg Q6 CASSY Administration Morphine Sulfate 1 mg 09/03/18 15:46 09/10/18 06:06 Morphine IVP 1 mg Q4H PRN Administration Pain, severe (8-10) Nicotine 1 patch 08/24/18 10:00 09/09/18 10:51 Nicoderm Cq TD 1 patch DAILY CASSY Administration Nystatin 0 ea 09/03/18 18:00 09/09/18 17:48 Mycostatin Cream TOP 1 cre TID CASSY Administration Ondansetron HCl 4 mg 08/24/18 00:04 Zofran Inj IVP Q4H PRN Nausea/Vomiting Pantoprazole Sodium 40 mg 09/02/18 10:00 09/09/18 10:51 Protonix Inj IVP 40 mg DAILY CASSY Administration Polyethylene Glycol 17 gm 08/31/18 10:00 09/09/18 10:52 Miralax PO 17 gm DAILY CASSY Administration Sodium Hypochlorite 0 ml 09/01/18 13:00 09/09/18 11:25 Dakins Solution 0.25% TOP 1 applic DAILY CASSY Administration - Patient Studies Lab Studies: Microbiology Studies 09/06/18 21:24 Bronchial Culture - Final Bronchial Washings Aimee Tropicalis 09/07/18 14:00 Bronchial Culture - Final Bronchial Washings Aimee Tropicalis 09/08/18 14:45 C. difficile Antigen & Toxins A,B - Final Stool Lab Studies 09/10/18 09/10/18 09/10/18 Range/Units 05:50 05:30 05:30 WBC 9.4 (4.5-11.0) 10^3/uL RBC 3.85 (3.5-6.1) 10^6/uL Hgb 10.2 L (14.0-18.0) g/dL Hct 35.4 L (42.0-52.0) % MCV 91.9 (80.0-105.0) fl MCH 26.5 (25.0-35.0) pg MCHC 28.8 L (31.0-37.0) g/dl RDW 16.2 H (11.5-14.5) % Plt Count 65 L (120.0-450.0) 10^3/uL Manual Plt Count 83 L (120-450) K/mm3 MPV 10.0 (7.0-11.0) fl Neut % (Auto) 67.3 (50.0-68.0) % Lymph % (Auto) 12.7 L (22.0-35.0) % Wharton % (Auto) 5.8 (1.0-6.0) % Eos % (Auto) 14.0 H (1.5-5.0) % Baso % (Auto) 0.2 (0.0-3.0) % Lymph # (Auto) 1.2 (1.2-3.4) Wharton # (Auto) 0.5 (0.1-0.6) Eos # (Auto) 1.3 H (0.0-0.7) Baso # (Auto) 0.02 (0.0-2.0) K/mm3 Absolute Neuts (auto) 6.33 (1.4-6.5) pCO2 57 H (35-45) mm/Hg pO2 65.0 L (80-100) mm/Hg HCO3 33.7 H (21-28) mmol/L ABG pH 7.38 (7.35-7.45) ABG Total CO2 35.4 H (22-28) mmol.L ABG O2 Saturation 94.4 L (95-98) % ABG O2 Content 18.6 (15-23) ML/dl ABG Base Excess 6.6 H (-2.0-3.0) mmol/L ABG Hemoglobin 14.5 (11.7-17.4) g/dL ABG Carboxyhemoglobin 2.1 H (0.5-1.5) % POC ABG HHb (Measured) 5.4 H (0-5) % ABG Methemoglobin 1.0 (0.0-3.0) % ABG O2 Capacity 19.7 (16-24) mL/dl Hgb O2 Saturation 91.5 L (95.0-98.0) % FiO2 60.0 % Sodium 144 (132-148) mmol/L Potassium 3.8 (3.6-5.0) mmol/L Chloride 108 H (98-107) mmol/L Carbon Dioxide 35 H (21-33) mmol/L Anion Gap 5 L (10-20) BUN 76 H (7-21) mg/dL Creatinine 1.7 H (0.8-1.5) mg/dl Est GFR ( Amer) 48 Est GFR (Non-Af Amer) 40 POC Glucose (mg/dL) (65-110) mg/dL Random Glucose 149 H (70-110) mg/dL Calcium 8.1 L (8.4-10.5) mg/dL Phosphorus 3.4 (2.5-4.5) mg/dL Magnesium 2.0 (1.7-2.2) mg/dL Total Bilirubin 0.6 (0.2-1.3) mg/dL Direct Bilirubin 0.2 (0.0-0.4) mg/dL AST 71 H D (17-59) U/L ALT 28 (7-56) U/L Alkaline Phosphatase 100 (38-126) U/L Troponin I ng/mL NT-Pro-B Natriuret Pep 7140 H (0-450) pg/mL Total Protein 5.4 L (5.8-8.3) g/dL Albumin 2.2 L (3.0-4.8) g/dL Globulin 3.2 gm/dL Albumin/Globulin Ratio 0.7 L (1.1-1.8) Random Vancomycin ug/mL 09/09/18 09/09/18 09/09/18 Range/Units 22:10 17:05 16:09 WBC (4.5-11.0) 10^3/uL RBC (3.5-6.1) 10^6/uL Hgb (14.0-18.0) g/dL Hct (42.0-52.0) % MCV (80.0-105.0) fl MCH (25.0-35.0) pg MCHC (31.0-37.0) g/dl RDW (11.5-14.5) % Plt Count (120.0-450.0) 10^3/uL Manual Plt Count (120-450) K/mm3 MPV (7.0-11.0) fl Neut % (Auto) (50.0-68.0) % Lymph % (Auto) (22.0-35.0) % Wharton % (Auto) (1.0-6.0) % Eos % (Auto) (1.5-5.0) % Baso % (Auto) (0.0-3.0) % Lymph # (Auto) (1.2-3.4) Wharton # (Auto) (0.1-0.6) Eos # (Auto) (0.0-0.7) Baso # (Auto) (0.0-2.0) K/mm3 Absolute Neuts (auto) (1.4-6.5) pCO2 (35-45) mm/Hg pO2 (80-100) mm/Hg HCO3 (21-28) mmol/L ABG pH (7.35-7.45) ABG Total CO2 (22-28) mmol.L ABG O2 Saturation (95-98) % ABG O2 Content (15-23) ML/dl ABG Base Excess (-2.0-3.0) mmol/L ABG Hemoglobin (11.7-17.4) g/dL ABG Carboxyhemoglobin (0.5-1.5) % POC ABG HHb (Measured) (0-5) % ABG Methemoglobin (0.0-3.0) % ABG O2 Capacity (16-24) mL/dl Hgb O2 Saturation (95.0-98.0) % FiO2 % Sodium (132-148) mmol/L Potassium (3.6-5.0) mmol/L Chloride (98-107) mmol/L Carbon Dioxide (21-33) mmol/L Anion Gap (10-20) BUN (7-21) mg/dL Creatinine (0.8-1.5) mg/dl Est GFR ( Amer) Est GFR (Non-Af Amer) POC Glucose (mg/dL) 145 H 157 H (65-110) mg/dL Random Glucose (70-110) mg/dL Calcium (8.4-10.5) mg/dL Phosphorus (2.5-4.5) mg/dL Magnesium (1.7-2.2) mg/dL Total Bilirubin (0.2-1.3) mg/dL Direct Bilirubin (0.0-0.4) mg/dL AST (17-59) U/L ALT (7-56) U/L Alkaline Phosphatase (38-126) U/L Troponin I < 0.01 ng/mL NT-Pro-B Natriuret Pep (0-450) pg/mL Total Protein (5.8-8.3) g/dL Albumin (3.0-4.8) g/dL Globulin gm/dL Albumin/Globulin Ratio (1.1-1.8) Random Vancomycin ug/mL 09/09/18 09/09/18 09/09/18 Range/Units 13:50 11:27 07:47 WBC (4.5-11.0) 10^3/uL RBC (3.5-6.1) 10^6/uL Hgb (14.0-18.0) g/dL Hct (42.0-52.0) % MCV (80.0-105.0) fl MCH (25.0-35.0) pg MCHC (31.0-37.0) g/dl RDW (11.5-14.5) % Plt Count (120.0-450.0) 10^3/uL Manual Plt Count (120-450) K/mm3 MPV (7.0-11.0) fl Neut % (Auto) (50.0-68.0) % Lymph % (Auto) (22.0-35.0) % Wharton % (Auto) (1.0-6.0) % Eos % (Auto) (1.5-5.0) % Baso % (Auto) (0.0-3.0) % Lymph # (Auto) (1.2-3.4) Wharton # (Auto) (0.1-0.6) Eos # (Auto) (0.0-0.7) Baso # (Auto) (0.0-2.0) K/mm3 Absolute Neuts (auto) (1.4-6.5) pCO2 (35-45) mm/Hg pO2 (80-100) mm/Hg HCO3 (21-28) mmol/L ABG pH (7.35-7.45) ABG Total CO2 (22-28) mmol.L ABG O2 Saturation (95-98) % ABG O2 Content (15-23) ML/dl ABG Base Excess (-2.0-3.0) mmol/L ABG Hemoglobin (11.7-17.4) g/dL ABG Carboxyhemoglobin (0.5-1.5) % POC ABG HHb (Measured) (0-5) % ABG Methemoglobin (0.0-3.0) % ABG O2 Capacity (16-24) mL/dl Hgb O2 Saturation (95.0-98.0) % FiO2 % Sodium (132-148) mmol/L Potassium (3.6-5.0) mmol/L Chloride (98-107) mmol/L Carbon Dioxide (21-33) mmol/L Anion Gap (10-20) BUN (7-21) mg/dL Creatinine (0.8-1.5) mg/dl Est GFR ( Amer) Est GFR (Non-Af Amer) POC Glucose (mg/dL) 145 H 145 H (65-110) mg/dL Random Glucose (70-110) mg/dL Calcium (8.4-10.5) mg/dL Phosphorus (2.5-4.5) mg/dL Magnesium (1.7-2.2) mg/dL Total Bilirubin (0.2-1.3) mg/dL Direct Bilirubin (0.0-0.4) mg/dL AST (17-59) U/L ALT (7-56) U/L Alkaline Phosphatase (38-126) U/L Troponin I ng/mL NT-Pro-B Natriuret Pep (0-450) pg/mL Total Protein (5.8-8.3) g/dL Albumin (3.0-4.8) g/dL Globulin gm/dL Albumin/Globulin Ratio (1.1-1.8) Random Vancomycin 19.3 ug/mL 09/08/18 Range/Units 22:58 WBC (4.5-11.0) 10^3/uL RBC (3.5-6.1) 10^6/uL Hgb (14.0-18.0) g/dL Hct (42.0-52.0) % MCV (80.0-105.0) fl MCH (25.0-35.0) pg MCHC (31.0-37.0) g/dl RDW (11.5-14.5) % Plt Count (120.0-450.0) 10^3/uL Manual Plt Count (120-450) K/mm3 MPV (7.0-11.0) fl Neut % (Auto) (50.0-68.0) % Lymph % (Auto) (22.0-35.0) % Wharton % (Auto) (1.0-6.0) % Eos % (Auto) (1.5-5.0) % Baso % (Auto) (0.0-3.0) % Lymph # (Auto) (1.2-3.4) Wharton # (Auto) (0.1-0.6) Eos # (Auto) (0.0-0.7) Baso # (Auto) (0.0-2.0) K/mm3 Absolute Neuts (auto) (1.4-6.5) pCO2 (35-45) mm/Hg pO2 (80-100) mm/Hg HCO3 (21-28) mmol/L ABG pH (7.35-7.45) ABG Total CO2 (22-28) mmol.L ABG O2 Saturation (95-98) % ABG O2 Content (15-23) ML/dl ABG Base Excess (-2.0-3.0) mmol/L ABG Hemoglobin (11.7-17.4) g/dL ABG Carboxyhemoglobin (0.5-1.5) % POC ABG HHb (Measured) (0-5) % ABG Methemoglobin (0.0-3.0) % ABG O2 Capacity (16-24) mL/dl Hgb O2 Saturation (95.0-98.0) % FiO2 % Sodium (132-148) mmol/L Potassium (3.6-5.0) mmol/L Chloride (98-107) mmol/L Carbon Dioxide (21-33) mmol/L Anion Gap (10-20) BUN (7-21) mg/dL Creatinine (0.8-1.5) mg/dl Est GFR ( Amer) Est GFR (Non-Af Amer) POC Glucose (mg/dL) 96 (65-110) mg/dL Random Glucose (70-110) mg/dL Calcium (8.4-10.5) mg/dL Phosphorus (2.5-4.5) mg/dL Magnesium (1.7-2.2) mg/dL Total Bilirubin (0.2-1.3) mg/dL Direct Bilirubin (0.0-0.4) mg/dL AST (17-59) U/L ALT (7-56) U/L Alkaline Phosphatase (38-126) U/L Troponin I ng/mL NT-Pro-B Natriuret Pep (0-450) pg/mL Total Protein (5.8-8.3) g/dL Albumin (3.0-4.8) g/dL Globulin gm/dL Albumin/Globulin Ratio (1.1-1.8) Random Vancomycin ug/mL Laboratory Results - last 24 hr 09/08/18 09/09/18 09/09/18 22:58 07:47 11:27 WBC RBC Hgb Hct MCV MCH MCHC RDW Plt Count Manual Plt Count MPV Neut % (Auto) Lymph % (Auto) Wharton % (Auto) Eos % (Auto) Baso % (Auto) Lymph # (Auto) Wharton # (Auto) Eos # (Auto) Baso # (Auto) Absolute Neuts (auto) pCO2 pO2 HCO3 ABG pH ABG Total CO2 ABG O2 Saturation ABG O2 Content ABG Base Excess ABG Hemoglobin ABG Carboxyhemoglobin POC ABG HHb (Measured) ABG Methemoglobin ABG O2 Capacity Hgb O2 Saturation FiO2 Sodium Potassium Chloride Carbon Dioxide Anion Gap BUN Creatinine Est GFR ( Amer) Est GFR (Non-Af Amer) POC Glucose (mg/dL) 96 145 H 145 H Random Glucose Calcium Phosphorus Magnesium Total Bilirubin Direct Bilirubin AST ALT Alkaline Phosphatase Troponin I NT-Pro-B Natriuret Pep Total Protein Albumin Globulin Albumin/Globulin Ratio Random Vancomycin 09/09/18 09/09/18 09/09/18 13:50 16:09 17:05 WBC RBC Hgb Hct MCV MCH MCHC RDW Plt Count Manual Plt Count MPV Neut % (Auto) Lymph % (Auto) Wharton % (Auto) Eos % (Auto) Baso % (Auto) Lymph # (Auto) Wharton # (Auto) Eos # (Auto) Baso # (Auto) Absolute Neuts (auto) pCO2 pO2 HCO3 ABG pH ABG Total CO2 ABG O2 Saturation ABG O2 Content ABG Base Excess ABG Hemoglobin ABG Carboxyhemoglobin POC ABG HHb (Measured) ABG Methemoglobin ABG O2 Capacity Hgb O2 Saturation FiO2 Sodium Potassium Chloride Carbon Dioxide Anion Gap BUN Creatinine Est GFR ( Amer) Est GFR (Non-Af Amer) POC Glucose (mg/dL) 157 H Random Glucose Calcium Phosphorus Magnesium Total Bilirubin Direct Bilirubin AST ALT Alkaline Phosphatase Troponin I < 0.01 NT-Pro-B Natriuret Pep Total Protein Albumin Globulin Albumin/Globulin Ratio Random Vancomycin 19.3 09/09/18 09/10/18 09/10/18 22:10 05:30 05:30 WBC 9.4 RBC 3.85 Hgb 10.2 L Hct 35.4 L MCV 91.9 MCH 26.5 MCHC 28.8 L RDW 16.2 H Plt Count 65 L Manual Plt Count 83 L MPV 10.0 Neut % (Auto) 67.3 Lymph % (Auto) 12.7 L Wharton % (Auto) 5.8 Eos % (Auto) 14.0 H Baso % (Auto) 0.2 Lymph # (Auto) 1.2 Wharton # (Auto) 0.5 Eos # (Auto) 1.3 H Baso # (Auto) 0.02 Absolute Neuts (auto) 6.33 pCO2 pO2 HCO3 ABG pH ABG Total CO2 ABG O2 Saturation ABG O2 Content ABG Base Excess ABG Hemoglobin ABG Carboxyhemoglobin POC ABG HHb (Measured) ABG Methemoglobin ABG O2 Capacity Hgb O2 Saturation FiO2 Sodium 144 Potassium 3.8 Chloride 108 H Carbon Dioxide 35 H Anion Gap 5 L BUN 76 H Creatinine 1.7 H Est GFR ( Amer) 48 Est GFR (Non-Af Amer) 40 POC Glucose (mg/dL) 145 H Random Glucose 149 H Calcium 8.1 L Phosphorus 3.4 Magnesium 2.0 Total Bilirubin 0.6 Direct Bilirubin 0.2 AST 71 H D ALT 28 Alkaline Phosphatase 100 Troponin I NT-Pro-B Natriuret Pep 7140 H Total Protein 5.4 L Albumin 2.2 L Globulin 3.2 Albumin/Globulin Ratio 0.7 L Random Vancomycin 09/10/18 05:50 WBC RBC Hgb Hct MCV MCH MCHC RDW Plt Count Manual Plt Count MPV Neut % (Auto) Lymph % (Auto) Wharton % (Auto) Eos % (Auto) Baso % (Auto) Lymph # (Auto) Wharton # (Auto) Eos # (Auto) Baso # (Auto) Absolute Neuts (auto) pCO2 57 H pO2 65.0 L HCO3 33.7 H ABG pH 7.38 ABG Total CO2 35.4 H ABG O2 Saturation 94.4 L ABG O2 Content 18.6 ABG Base Excess 6.6 H ABG Hemoglobin 14.5 ABG Carboxyhemoglobin 2.1 H POC ABG HHb (Measured) 5.4 H ABG Methemoglobin 1.0 ABG O2 Capacity 19.7 Hgb O2 Saturation 91.5 L FiO2 60.0 Sodium Potassium Chloride Carbon Dioxide Anion Gap BUN Creatinine Est GFR ( Amer) Est GFR (Non-Af Amer) POC Glucose (mg/dL) Random Glucose Calcium Phosphorus Magnesium Total Bilirubin Direct Bilirubin AST ALT Alkaline Phosphatase Troponin I NT-Pro-B Natriuret Pep Total Protein Albumin Globulin Albumin/Globulin Ratio Random Vancomycin Radiology Impressions: Radiology Impressions Extremity Ultrasound 09/08/18 09:14 IMPRESSION: 1. No sonographic evidence for deep venous thrombosis in the visualized segments of the right upper extremity. 2. Very limited study Chest X-Ray 09/09/18 06:00 IMPRESSION: No significant change in extensive right-sided infiltrate Chest X-Ray 09/09/18 06:59 IMPRESSION: Bilateral pleural effusion. Interstitial infiltrate right upper greater than right lower. No alfredo consolidation. Congestive change. Bilateral small pleural effusion. Possible interstitial pulmonary edema. Follow-up advised. EKG/Cardiology Studies: Cardiology / EKG Studies 09/09/18 16:29 EKG [ELECTROCARDIOGRAM] Stat Comment: Reason For Exam: chest pain 09/10/18 06:00 EKG [ELECTROCARDIOGRAM] DAILY Comment: Reason For Exam: TACHYCARDIA Fingerstick Blood Sugar Results: 145 Critical Care Progress Note - Nutrition Nutrition: Nutrition Category Date Time Status NPO Diet [DIET] Diets 09/06/18 Breakfast Ordered Assessment/Plan - Assessment and Plan (Free Text) Assessment: Pt is a 68 yo M with pmhx of chronic back pain and vertebral disc disease who presented to the [facility] ED for complaints of b/l foot pain and back pain. ICU is consulted for management of pts acute hypercapnic respiratory failure and AMS. Pt had R thoracentesis done 08/31, pt was also intubated due to continued resp acidosis even on 100% FiO2 on Bipap. Pt was noted to have recurrence of L sided white out likely 2/2 mucous plug. Pt was intubated 09/07 and bronched and mutliple mucus plugs were removed. Repeat CXR clearing of L side of the lung, with persistent R sided hilar infiltrate. Pt will be diuresed prior to extubation attempt tomorrow. Plan: Neuro: - Pt is intubated and sedated - Placed back on precedex and fentanyl drip Pulm: Acute hypercapnic resp failure leading to respiratory acidosis w/ chronic incomplete compensatory resp alkalosis: - Likely 2/2 CHF exacerbation vs PNA vs mucous plug. Unlikely PE due to r/o by CTA - Pt intubated and subsequently bronched for mucous plug removal 09/06 & 09/07 - Pt will remain intubated and assessed for extubation until appropriate for extubation - CXR: Improved L side of lung, with persistent R side, hilar infiltrate - Echo showed mildly imparied LV systolic dysfunction - BNP elevated - Abrams - Strict I/Os. Minimize positive fluid balance - Daily weight PNA vs CHF: - Procal elevated - CXR and echo resulted noted above - ID on board, recs appreciated: Merrem q8 and vanc day 12 of tx - Zyvox d/helga by ID due to dropping platelets - Repeat blood, urine and sputum cultures Cardio: Shock: Septic vs cardiogenic: - Pt weaned off of levophed and dobutamine - Continue lasix for diuresis for suspected cardiogenic shock - Pt had episode of hypotension for short period of time, bolused 2L NS, and episode resolved, will cont to monitor. - s/p Thoracentesis 08/31: 1700ml out - s/p bronch for mucous plug removal 09/06 & 09/07 - Tapered off stress dose steroids - Goal is MAP > 65 Nephro: Pre-renal Azotemia: - BUN/Cr = 76/1.7 - UA, urine sodium, urine cl, urine osms, urine protein and serum osms ordered - Will cont to monitor - Will give lasix, now due to fluid overload and respiratory compromise but will limit other nephrotoxic agents - Nephro consulted, recs appreciated - Monitor I/Os, try to maintain negative fluid balance. GI: - NPO - Protonix Heme: - Pts platelets have been steadily decreasing - Unlikely HIT as platelets were decreasing prior to introduction of heparin - Zyvox d/helga per ID to r/o thrombocytopenia side effects from zyvox MSK: B/l foot cellulitis - MRSA (+): - continue multipodus boots - cultures growing MRSA - Continue IV Vanc. ID following - Pt is refusing MRI to r/o osteomyelitis ID: Stage 3 Sacral decub ulcer: - Pt refusing MRI - Santyl and local wound care - Cont Vancomycin per ID recs - Will discuss with ID to transition to oral abx in order to minimize positive fluid balance DVT PPx: Heparin/Protonix Case seen, examined and discussed with attending physician, Dr. Melania Zimmerman PGY1 <Joce Velázquez - Last Filed: 09/10/18 14:27> CCU Objective - Vital Signs / Intake & Output Vital Signs (Last 4 hours): Vital Signs Temp Pulse BP Pulse Ox 09/10/18 12:08 97.5 F L 121 H 155/76 H 96 09/10/18 12:00 97.5 F L 119 H 155/85 H 95 09/10/18 11:23 97.3 F L 100 H 151/89 H 97 09/10/18 11:00 97.9 F 72 135/72 100 09/10/18 10:43 98.2 F 84 98/51 L 99 09/10/18 10:27 98.4 F 93 H 70/16 L 96 Intake and Output (Last 8hrs): Intake & Output 09/09/18 09/10/18 09/10/18 22:59 06:59 14:59 Intake Total 1492 1493 197 Output Total 775 700 Balance 717 793 197 Intake: IV 462 553 197 Right Internal Jugular 362 340 left hand 0 Oral 90 Tube Feeding 940 940 Output: Urine 175 700 Urethral (Abrams) 175 700 Stool 600 Other: # Bowel Movements 1 - Medications Active Medications: Active Medications Generic Name Dose Route Start Last Admin Trade Name Freq PRN Reason Stop Dose Admin Acetaminophen 650 mg 08/24/18 00:04 09/03/18 13:54 Tylenol 325mg Tab PO 650 mg Q6 PRN Administration TEMP>=99.5F Bisacodyl 10 mg 08/28/18 12:39 Dulcolax RC HS PRN Constipation Budesonide 0.5 mg 09/02/18 08:00 09/10/18 07:02 Pulmicort Respules IH 0.5 mg [id number] CASSY Administration Collagenase 0 gm 08/25/18 10:00 09/09/18 11:27 Santyl TOP 1 appl DAILY CASSY Administration Ergocalciferol 1 cap 08/26/18 15:00 09/09/18 15:56 Drisdol 50,000 Intl Units Cap PO 1 cap Q7D CASSY Administration Folic Acid 1 mg 08/26/18 15:00 09/10/18 09:47 Folic Acid PO 1 mg DAILY CASSY Administration Furosemide 60 mg 09/09/18 10:15 09/09/18 23:28 Lasix IVP 60 mg Q12 CASSY Administration Heparin Sodium (Porcine) 5,000 units 09/06/18 22:00 09/09/18 05:30 Heparin SC 5,000 units Q8 CASSY Administration Protocol Dexmedetomidine HCl 400 mcg in 100 mls @ 3.856 mls/hr 08/31/18 16:50 09/10/18 08:38 Precedex 400mcg/100ml IV 0.5 mcg/kg/hr .Q24H PRN 9.639 mls/hr Sedation Administration Protocol 0.2 MCG/KG/HR Fentanyl Citrate 1,000 mcg in 100 mls @ 2 mls/hr 09/07/18 16:43 09/10/18 14:12 Fentanyl Citrate/Sodium Chloride 1 Mg/100 Ml IV 120 mcg/hr .Q24H PRN 12 mls/hr TITRATE PER MD ORDER Titration Protocol 20 MCG/HR Meropenem/Sodium Chloride 500 mg in 50 mls @ 100 mls/hr 09/08/18 22:00 09/10/18 09:48 Merrem Iv 500 Mg/Ns 50 Ml IVPB 09/13/18 22:01 100 mls/hr Q12 CASSY Administration Protocol NOREPINEPHRINE BIT/0.9 % NACL 4 mg in 250 mls @ 15 mls/hr 09/10/18 10:20 09/10/18 12:15 Levophed 4 Mg/ 250 Ml Ns Premixed IV 4 mcg/min .[id number] PRN 15 mls/hr TITRATE PER MD ORDER Administration Protocol 4 MCG/MIN Vancomycin HCl 1.5 gm/ Sodium 500 mls @ 167 mls/hr 09/10/18 13:31 09/10/18 13:38 Chloride IVPB 09/10/18 16:30 Not Given ONCE ONE Protocol Lactic Acid 0 ea 08/28/18 11:45 09/10/18 09:37 Lac-Hydrin 12% Cream (140 G) TOP 1 applic DAILY CASSY Administration Levalbuterol HCl 0.63 mg 09/04/18 20:00 09/10/18 13:28 Xopenex IH 0.63 mg [id number] CASSY Administration Metoprolol Tartrate 5 mg 09/08/18 09:18 09/10/18 13:33 Lopressor IVP Not Given Q6 CASSY Morphine Sulfate 1 mg 09/03/18 15:46 09/10/18 12:18 Morphine IVP 1 mg Q4H PRN Administration Pain, severe (8-10) Nicotine 1 patch 08/24/18 10:00 09/10/18 09:47 Nicoderm Cq TD 1 patch DAILY CASSY Administration Nystatin 0 ea 09/03/18 18:00 09/10/18 09:39 Mycostatin Cream TOP 1 cre TID CASSY Administration Ondansetron HCl 4 mg 08/24/18 00:04 Zofran Inj IVP Q4H PRN Nausea/Vomiting Pantoprazole Sodium 40 mg 09/02/18 10:00 09/10/18 09:47 Protonix Inj IVP 40 mg DAILY CASSY Administration Polyethylene Glycol 17 gm 08/31/18 10:00 09/10/18 09:39 Miralax PO Not Given DAILY CASSY Sodium Hypochlorite 0 ml 09/01/18 13:00 09/10/18 09:49 Dakins Solution 0.25% TOP 1 applic DAILY CASSY Administration - Patient Studies Lab Studies: Microbiology Studies 09/06/18 21:24 Bronchial Culture - Final Bronchial Washings Aimee Tropicalis 09/07/18 14:00 Bronchial Culture - Final Bronchial Washings Aimee Tropicalis 09/08/18 14:45 C. difficile Antigen & Toxins A,B - Final Stool Lab Studies 09/10/18 09/10/18 09/10/18 Range/Units 11:35 11:11 10:20 WBC (4.5-11.0) 10^3/uL RBC (3.5-6.1) 10^6/uL Hgb (14.0-18.0) g/dL Hct (42.0-52.0) % MCV (80.0-105.0) fl MCH (25.0-35.0) pg MCHC (31.0-37.0) g/dl RDW (11.5-14.5) % Plt Count (120.0-450.0) 10^3/uL Manual Plt Count (120-450) K/mm3 MPV (7.0-11.0) fl Neut % (Auto) (50.0-68.0) % Lymph % (Auto) (22.0-35.0) % Wharton % (Auto) (1.0-6.0) % Eos % (Auto) (1.5-5.0) % Baso % (Auto) (0.0-3.0) % Lymph # (Auto) (1.2-3.4) Wharton # (Auto) (0.1-0.6) Eos # (Auto) (0.0-0.7) Baso # (Auto) (0.0-2.0) K/mm3 Absolute Neuts (auto) (1.4-6.5) PT 12.8 H (9.4-12.5) SECONDS INR 1.13 APTT 23.0 L (26.9-38.3) Seconds pCO2 (35-45) mm/Hg pO2 52 (80-100) mm/Hg HCO3 (21-28) mmol/L ABG pH (7.35-7.45) ABG Total CO2 (22-28) mmol.L ABG O2 Saturation (95-98) % ABG O2 Content (15-23) ML/dl ABG Base Excess (-2.0-3.0) mmol/L ABG Hemoglobin (11.7-17.4) g/dL ABG Carboxyhemoglobin (0.5-1.5) % POC ABG HHb (Measured) (0-5) % ABG Methemoglobin (0.0-3.0) % ABG O2 Capacity (16-24) mL/dl VBG pH 7.34 (7.32-7.43) VBG pCO2 62.0 H (40-60) VBG HCO3 33.4 H (21-28) mmol/l VBG Total CO2 35.3 H (22-28) mmol.L VBG O2 Sat (Calc) 89.4 H (40-65) % VBG Base Excess 5.6 H (0.0-2.0) mmol/L VBG Potassium 3.7 (3.6-5.2) mmol/L Hgb O2 Saturation (95.0-98.0) % Glucose 117 H (75-110) mg/dl Lactate 1.1 (0.7-2.1) mmol/L FiO2 21.0 % Sodium 147.0 (132-148) mmol/L Potassium (3.6-5.0) mmol/L Chloride 114.0 H (98-107) mmol/L Carbon Dioxide (21-33) mmol/L Anion Gap (10-20) BUN (7-21) mg/dL Creatinine (0.8-1.5) mg/dl Est GFR ( Amer) Est GFR (Non-Af Amer) POC Glucose (mg/dL) 121 H (65-110) mg/dL Random Glucose (70-110) mg/dL Calcium (8.4-10.5) mg/dL Phosphorus (2.5-4.5) mg/dL Magnesium (1.7-2.2) mg/dL Total Bilirubin (0.2-1.3) mg/dL Direct Bilirubin (0.0-0.4) mg/dL AST (17-59) U/L ALT (7-56) U/L Alkaline Phosphatase (38-126) U/L Troponin I ng/mL NT-Pro-B Natriuret Pep (0-450) pg/mL Total Protein (5.8-8.3) g/dL Albumin (3.0-4.8) g/dL Globulin gm/dL Albumin/Globulin Ratio (1.1-1.8) Venous Blood Potassium 3.7 (3.6-5.2) mmol/L Random Vancomycin ug/mL 09/10/18 09/10/18 09/10/18 Range/Units 08:17 05:50 05:30 WBC 9.4 (4.5-11.0) 10^3/uL RBC 3.85 (3.5-6.1) 10^6/uL Hgb 10.2 L (14.0-18.0) g/dL Hct 35.4 L (42.0-52.0) % MCV 91.9 (80.0-105.0) fl MCH 26.5 (25.0-35.0) pg MCHC 28.8 L (31.0-37.0) g/dl RDW 16.2 H (11.5-14.5) % Plt Count 65 L (120.0-450.0) 10^3/uL Manual Plt Count 83 L (120-450) K/mm3 MPV 10.0 (7.0-11.0) fl Neut % (Auto) 67.3 (50.0-68.0) % Lymph % (Auto) 12.7 L (22.0-35.0) % Wharton % (Auto) 5.8 (1.0-6.0) % Eos % (Auto) 14.0 H (1.5-5.0) % Baso % (Auto) 0.2 (0.0-3.0) % Lymph # (Auto) 1.2 (1.2-3.4) Wharton # (Auto) 0.5 (0.1-0.6) Eos # (Auto) 1.3 H (0.0-0.7) Baso # (Auto) 0.02 (0.0-2.0) K/mm3 Absolute Neuts (auto) 6.33 (1.4-6.5) PT (9.4-12.5) SECONDS INR APTT (26.9-38.3) Seconds pCO2 57 H (35-45) mm/Hg pO2 65.0 L (80-100) mm/Hg HCO3 33.7 H (21-28) mmol/L ABG pH 7.38 (7.35-7.45) ABG Total CO2 35.4 H (22-28) mmol.L ABG O2 Saturation 94.4 L (95-98) % ABG O2 Content 18.6 (15-23) ML/dl ABG Base Excess 6.6 H (-2.0-3.0) mmol/L ABG Hemoglobin 14.5 (11.7-17.4) g/dL ABG Carboxyhemoglobin 2.1 H (0.5-1.5) % POC ABG HHb (Measured) 5.4 H (0-5) % ABG Methemoglobin 1.0 (0.0-3.0) % ABG O2 Capacity 19.7 (16-24) mL/dl VBG pH (7.32-7.43) VBG pCO2 (40-60) VBG HCO3 (21-28) mmol/l VBG Total CO2 (22-28) mmol.L VBG O2 Sat (Calc) (40-65) % VBG Base Excess (0.0-2.0) mmol/L VBG Potassium (3.6-5.2) mmol/L Hgb O2 Saturation 91.5 L (95.0-98.0) % Glucose (75-110) mg/dl Lactate (0.7-2.1) mmol/L FiO2 60.0 % Sodium (132-148) mmol/L Potassium (3.6-5.0) mmol/L Chloride (98-107) mmol/L Carbon Dioxide (21-33) mmol/L Anion Gap (10-20) BUN (7-21) mg/dL Creatinine (0.8-1.5) mg/dl Est GFR ( Amer) Est GFR (Non-Af Amer) POC Glucose (mg/dL) 164 H (65-110) mg/dL Random Glucose (70-110) mg/dL Calcium (8.4-10.5) mg/dL Phosphorus (2.5-4.5) mg/dL Magnesium (1.7-2.2) mg/dL Total Bilirubin (0.2-1.3) mg/dL Direct Bilirubin (0.0-0.4) mg/dL AST (17-59) U/L ALT (7-56) U/L Alkaline Phosphatase (38-126) U/L Troponin I ng/mL NT-Pro-B Natriuret Pep (0-450) pg/mL Total Protein (5.8-8.3) g/dL Albumin (3.0-4.8) g/dL Globulin gm/dL Albumin/Globulin Ratio (1.1-1.8) Venous Blood Potassium (3.6-5.2) mmol/L Random Vancomycin ug/mL 09/10/18 09/09/18 09/09/18 Range/Units 05:30 22:10 17:05 WBC (4.5-11.0) 10^3/uL RBC (3.5-6.1) 10^6/uL Hgb (14.0-18.0) g/dL Hct (42.0-52.0) % MCV (80.0-105.0) fl MCH (25.0-35.0) pg MCHC (31.0-37.0) g/dl RDW (11.5-14.5) % Plt Count (120.0-450.0) 10^3/uL Manual Plt Count (120-450) K/mm3 MPV (7.0-11.0) fl Neut % (Auto) (50.0-68.0) % Lymph % (Auto) (22.0-35.0) % Wharton % (Auto) (1.0-6.0) % Eos % (Auto) (1.5-5.0) % Baso % (Auto) (0.0-3.0) % Lymph # (Auto) (1.2-3.4) Wharton # (Auto) (0.1-0.6) Eos # (Auto) (0.0-0.7) Baso # (Auto) (0.0-2.0) K/mm3 Absolute Neuts (auto) (1.4-6.5) PT (9.4-12.5) SECONDS INR APTT (26.9-38.3) Seconds pCO2 (35-45) mm/Hg pO2 (80-100) mm/Hg HCO3 (21-28) mmol/L ABG pH (7.35-7.45) ABG Total CO2 (22-28) mmol.L ABG O2 Saturation (95-98) % ABG O2 Content (15-23) ML/dl ABG Base Excess (-2.0-3.0) mmol/L ABG Hemoglobin (11.7-17.4) g/dL ABG Carboxyhemoglobin (0.5-1.5) % POC ABG HHb (Measured) (0-5) % ABG Methemoglobin (0.0-3.0) % ABG O2 Capacity (16-24) mL/dl VBG pH (7.32-7.43) VBG pCO2 (40-60) VBG HCO3 (21-28) mmol/l VBG Total CO2 (22-28) mmol.L VBG O2 Sat (Calc) (40-65) % VBG Base Excess (0.0-2.0) mmol/L VBG Potassium (3.6-5.2) mmol/L Hgb O2 Saturation (95.0-98.0) % Glucose (75-110) mg/dl Lactate (0.7-2.1) mmol/L FiO2 % Sodium 144 (132-148) mmol/L Potassium 3.8 (3.6-5.0) mmol/L Chloride 108 H (98-107) mmol/L Carbon Dioxide 35 H (21-33) mmol/L Anion Gap 5 L (10-20) BUN 76 H (7-21) mg/dL Creatinine 1.7 H (0.8-1.5) mg/dl Est GFR ( Amer) 48 Est GFR (Non-Af Amer) 40 POC Glucose (mg/dL) 145 H (65-110) mg/dL Random Glucose 149 H (70-110) mg/dL Calcium 8.1 L (8.4-10.5) mg/dL Phosphorus 3.4 (2.5-4.5) mg/dL Magnesium 2.0 (1.7-2.2) mg/dL Total Bilirubin 0.6 (0.2-1.3) mg/dL Direct Bilirubin 0.2 (0.0-0.4) mg/dL AST 71 H D (17-59) U/L ALT 28 (7-56) U/L Alkaline Phosphatase 100 (38-126) U/L Troponin I < 0.01 ng/mL NT-Pro-B Natriuret Pep 7140 H (0-450) pg/mL Total Protein 5.4 L (5.8-8.3) g/dL Albumin 2.2 L (3.0-4.8) g/dL Globulin 3.2 gm/dL Albumin/Globulin Ratio 0.7 L (1.1-1.8) Venous Blood Potassium (3.6-5.2) mmol/L Random Vancomycin ug/mL 09/09/18 09/09/18 Range/Units 16:09 13:50 WBC (4.5-11.0) 10^3/uL RBC (3.5-6.1) 10^6/uL Hgb (14.0-18.0) g/dL Hct (42.0-52.0) % MCV (80.0-105.0) fl MCH (25.0-35.0) pg MCHC (31.0-37.0) g/dl RDW (11.5-14.5) % Plt Count (120.0-450.0) 10^3/uL Manual Plt Count (120-450) K/mm3 MPV (7.0-11.0) fl Neut % (Auto) (50.0-68.0) % Lymph % (Auto) (22.0-35.0) % Wharton % (Auto) (1.0-6.0) % Eos % (Auto) (1.5-5.0) % Baso % (Auto) (0.0-3.0) % Lymph # (Auto) (1.2-3.4) Wharton # (Auto) (0.1-0.6) Eos # (Auto) (0.0-0.7) Baso # (Auto) (0.0-2.0) K/mm3 Absolute Neuts (auto) (1.4-6.5) PT (9.4-12.5) SECONDS INR APTT (26.9-38.3) Seconds pCO2 (35-45) mm/Hg pO2 (80-100) mm/Hg HCO3 (21-28) mmol/L ABG pH (7.35-7.45) ABG Total CO2 (22-28) mmol.L ABG O2 Saturation (95-98) % ABG O2 Content (15-23) ML/dl ABG Base Excess (-2.0-3.0) mmol/L ABG Hemoglobin (11.7-17.4) g/dL ABG Carboxyhemoglobin (0.5-1.5) % POC ABG HHb (Measured) (0-5) % ABG Methemoglobin (0.0-3.0) % ABG O2 Capacity (16-24) mL/dl VBG pH (7.32-7.43) VBG pCO2 (40-60) VBG HCO3 (21-28) mmol/l VBG Total CO2 (22-28) mmol.L VBG O2 Sat (Calc) (40-65) % VBG Base Excess (0.0-2.0) mmol/L VBG Potassium (3.6-5.2) mmol/L Hgb O2 Saturation (95.0-98.0) % Glucose (75-110) mg/dl Lactate (0.7-2.1) mmol/L FiO2 % Sodium (132-148) mmol/L Potassium (3.6-5.0) mmol/L Chloride (98-107) mmol/L Carbon Dioxide (21-33) mmol/L Anion Gap (10-20) BUN (7-21) mg/dL Creatinine (0.8-1.5) mg/dl Est GFR ( Amer) Est GFR (Non-Af Amer) POC Glucose (mg/dL) 157 H (65-110) mg/dL Random Glucose (70-110) mg/dL Calcium (8.4-10.5) mg/dL Phosphorus (2.5-4.5) mg/dL Magnesium (1.7-2.2) mg/dL Total Bilirubin (0.2-1.3) mg/dL Direct Bilirubin (0.0-0.4) mg/dL AST (17-59) U/L ALT (7-56) U/L Alkaline Phosphatase (38-126) U/L Troponin I ng/mL NT-Pro-B Natriuret Pep (0-450) pg/mL Total Protein (5.8-8.3) g/dL Albumin (3.0-4.8) g/dL Globulin gm/dL Albumin/Globulin Ratio (1.1-1.8) Venous Blood Potassium (3.6-5.2) mmol/L Random Vancomycin 19.3 ug/mL Laboratory Results - last 24 hr 09/09/18 09/09/18 09/09/18 13:50 16:09 17:05 WBC RBC Hgb Hct MCV MCH MCHC RDW Plt Count Manual Plt Count MPV Neut % (Auto) Lymph % (Auto) Wharton % (Auto) Eos % (Auto) Baso % (Auto) Lymph # (Auto) Wharton # (Auto) Eos # (Auto) Baso # (Auto) Absolute Neuts (auto) PT INR APTT pCO2 pO2 HCO3 ABG pH ABG Total CO2 ABG O2 Saturation ABG O2 Content ABG Base Excess ABG Hemoglobin ABG Carboxyhemoglobin POC ABG HHb (Measured) ABG Methemoglobin ABG O2 Capacity VBG pH VBG pCO2 VBG HCO3 VBG Total CO2 VBG O2 Sat (Calc) VBG Base Excess VBG Potassium Hgb O2 Saturation Glucose Lactate FiO2 Sodium Potassium Chloride Carbon Dioxide Anion Gap BUN Creatinine Est GFR ( Amer) Est GFR (Non-Af Amer) POC Glucose (mg/dL) 157 H Random Glucose Calcium Phosphorus Magnesium Total Bilirubin Direct Bilirubin AST ALT Alkaline Phosphatase Troponin I < 0.01 NT-Pro-B Natriuret Pep Total Protein Albumin Globulin Albumin/Globulin Ratio Venous Blood Potassium Random Vancomycin 19.3 09/09/18 09/10/18 09/10/18 22:10 05:30 05:30 WBC 9.4 RBC 3.85 Hgb 10.2 L Hct 35.4 L MCV 91.9 MCH 26.5 MCHC 28.8 L RDW 16.2 H Plt Count 65 L Manual Plt Count 83 L MPV 10.0 Neut % (Auto) 67.3 Lymph % (Auto) 12.7 L Wharton % (Auto) 5.8 Eos % (Auto) 14.0 H Baso % (Auto) 0.2 Lymph # (Auto) 1.2 Wharton # (Auto) 0.5 Eos # (Auto) 1.3 H Baso # (Auto) 0.02 Absolute Neuts (auto) 6.33 PT INR APTT pCO2 pO2 HCO3 ABG pH ABG Total CO2 ABG O2 Saturation ABG O2 Content ABG Base Excess ABG Hemoglobin ABG Carboxyhemoglobin POC ABG HHb (Measured) ABG Methemoglobin ABG O2 Capacity VBG pH VBG pCO2 VBG HCO3 VBG Total CO2 VBG O2 Sat (Calc) VBG Base Excess VBG Potassium Hgb O2 Saturation Glucose Lactate FiO2 Sodium 144 Potassium 3.8 Chloride 108 H Carbon Dioxide 35 H Anion Gap 5 L BUN 76 H Creatinine 1.7 H Est GFR ( Amer) 48 Est GFR (Non-Af Amer) 40 POC Glucose (mg/dL) 145 H Random Glucose 149 H Calcium 8.1 L Phosphorus 3.4 Magnesium 2.0 Total Bilirubin 0.6 Direct Bilirubin 0.2 AST 71 H D ALT 28 Alkaline Phosphatase 100 Troponin I NT-Pro-B Natriuret Pep 7140 H Total Protein 5.4 L Albumin 2.2 L Globulin 3.2 Albumin/Globulin Ratio 0.7 L Venous Blood Potassium Random Vancomycin 09/10/18 09/10/18 09/10/18 05:50 08:17 10:20 WBC RBC Hgb Hct MCV MCH MCHC RDW Plt Count Manual Plt Count MPV Neut % (Auto) Lymph % (Auto) Wharton % (Auto) Eos % (Auto) Baso % (Auto) Lymph # (Auto) Wharton # (Auto) Eos # (Auto) Baso # (Auto) Absolute Neuts (auto) PT 12.8 H INR 1.13 APTT 23.0 L pCO2 57 H pO2 65.0 L HCO3 33.7 H ABG pH 7.38 ABG Total CO2 35.4 H ABG O2 Saturation 94.4 L ABG O2 Content 18.6 ABG Base Excess 6.6 H ABG Hemoglobin 14.5 ABG Carboxyhemoglobin 2.1 H POC ABG HHb (Measured) 5.4 H ABG Methemoglobin 1.0 ABG O2 Capacity 19.7 VBG pH VBG pCO2 VBG HCO3 VBG Total CO2 VBG O2 Sat (Calc) VBG Base Excess VBG Potassium Hgb O2 Saturation 91.5 L Glucose Lactate FiO2 60.0 Sodium Potassium Chloride Carbon Dioxide Anion Gap BUN Creatinine Est GFR ( Amer) Est GFR (Non-Af Amer) POC Glucose (mg/dL) 164 H Random Glucose Calcium Phosphorus Magnesium Total Bilirubin Direct Bilirubin AST ALT Alkaline Phosphatase Troponin I NT-Pro-B Natriuret Pep Total Protein Albumin Globulin Albumin/Globulin Ratio Venous Blood Potassium Random Vancomycin 09/10/18 09/10/18 11:11 11:35 WBC RBC Hgb Hct MCV MCH MCHC RDW Plt Count Manual Plt Count MPV Neut % (Auto) Lymph % (Auto) Wharton % (Auto) Eos % (Auto) Baso % (Auto) Lymph # (Auto) Wharton # (Auto) Eos # (Auto) Baso # (Auto) Absolute Neuts (auto) PT INR APTT pCO2 pO2 52 HCO3 ABG pH ABG Total CO2 ABG O2 Saturation ABG O2 Content ABG Base Excess ABG Hemoglobin ABG Carboxyhemoglobin POC ABG HHb (Measured) ABG Methemoglobin ABG O2 Capacity VBG pH 7.34 VBG pCO2 62.0 H VBG HCO3 33.4 H VBG Total CO2 35.3 H VBG O2 Sat (Calc) 89.4 H VBG Base Excess 5.6 H VBG Potassium 3.7 Hgb O2 Saturation Glucose 117 H Lactate 1.1 FiO2 21.0 Sodium 147.0 Potassium Chloride 114.0 H Carbon Dioxide Anion Gap BUN Creatinine Est GFR ( Amer) Est GFR (Non-Af Amer) POC Glucose (mg/dL) 121 H Random Glucose Calcium Phosphorus Magnesium Total Bilirubin Direct Bilirubin AST ALT Alkaline Phosphatase Troponin I NT-Pro-B Natriuret Pep Total Protein Albumin Globulin Albumin/Globulin Ratio Venous Blood Potassium 3.7 Random Vancomycin Radiology Impressions: Radiology Impressions Extremity Ultrasound 09/08/18 09:14 IMPRESSION: 1. No sonographic evidence for deep venous thrombosis in the visualized segments of the right upper extremity. 2. Very limited study Chest X-Ray 09/10/18 06:00 IMPRESSION: No change in right-sided infiltrate and left lower lobe infiltrate. Nasogastric tube is in suboptimal position with its tip at the level of the diaphragms. Endotracheal tube in satisfactory position right IJ line in satisfactory position EKG/Cardiology Studies: Cardiology / EKG Studies 09/09/18 16:29 EKG [ELECTROCARDIOGRAM] Stat Comment: Reason For Exam: chest pain 09/10/18 06:00 EKG [ELECTROCARDIOGRAM] DAILY Comment: Reason For Exam: TACHYCARDIA Critical Care Progress Note - Nutrition Nutrition: Nutrition Category Date Time Status NPO Diet [DIET] Diets 09/06/18 Breakfast Ordered Assessment/Plan - Assessment and Plan (Free Text) Plan: Patient is 68yo male with PMHx of chronic back pain, admitted for foot pain, subequently went into resp failure, shock, requiring vasopressor support, intubation. Currently intubated, OFF vasopressor support Labs, imaging, chart reviewed CXR with improvement of opacification of L lung, s/p bronchoscopy x [address] Renal function has reached a plateau Today ABG still with large A-a gradient, hypoxemia, not ready to be weaned off, pulmonary following Will likely need LTACH, will discuss with family Shock, resolved Pleural effusions Mucus plugging Respiratory failure CHF PNA Recommend: - cont with vent support, low tidal vol ventilation, daily sedation vacation, ABGs, CPAP trials - broad spectrum abx as per ID, follow up cultures, - follow up cardiology - monitor LFTS - aggressive chest PT - Lopressor 25mg BID - Precedex ip - Lasix, net goal net neg 1L per day - Feeds - monitor Cr closely - renal follow up - GI ppx - DVT ppx - Monitor in MICU Critical care time 35 minutes
[2018-09-10] MEDS: Ammonium Lactate 12% Cream (140 g) TOP SCH (09:37)
[2018-09-10] MEDS: POLYETHYLENE GLYCOL 3350 17 GM/Dose PACKET PO SCH (09:39)
[2018-09-10] MEDS: Nystatin 100,000 Units/gm Cream(15 gm) TOP SCH ×3 (09:39→17:30)
[2018-09-10] MEDS: MEROPENEM 500 MG in NS 500 MG/50 ML BAG IVPB SCH ×2 (09:48→23:23)
--- NOTE | 2018-09-10 09:48 | RAD ---
Date of service: 09/10/2018 HISTORY: f/u COMPARISON: 09/09/2018 FINDINGS: LUNGS: No change in right-sided infiltrate and left lower lobe infiltrate. Nasogastric tube is in suboptimal position with its tip at the level of the diaphragms. Endotracheal tube in satisfactory position right IJ line in satisfactory position PLEURA: Small effusion CARDIOVASCULAR: Aortic calcification Normal cardiac size. No pulmonary vascular congestion. OSSEOUS STRUCTURES: No significant abnormalities. VISUALIZED UPPER ABDOMEN: Normal. OTHER FINDINGS: None. IMPRESSION: No change in right-sided infiltrate and left lower lobe infiltrate. Nasogastric tube is in suboptimal position with its tip at the level of the diaphragms. Endotracheal tube in satisfactory position right IJ line in satisfactory position
[2018-09-10] MEDS: Dakin's Topical 0.25%-Half Strength (480 ml) TOP SCH (09:49)
[2018-09-10] MEDS ORDERED: Sodium Chloride 0.9% 2,000 ML IV STA (10:15)
[2018-09-10] MEDS ORDERED: Vancomycin 1gm in NS 250ml 1 GM/250 ML BAG IVPB STA (10:24)
[2018-09-10 10:43] LABS: INR 1.13; PROTHROMBIN TIME 12.8 SECONDS (9.4-12.5)
[2018-09-10 11:42] LABS: VENOUS BLOOD GAS BASE EXCESS 5.6 mmol/L (0.0-2.0); VENOUS BLOOD GAS PO2 52 mm/Hg (30-55); VENOUS BLOOD PH 7.34 (7.32-7.43)
--- NOTE | 2018-09-10 12:01 | CP.PCM.PN ---
<Kulwant Mathews - Last Filed: 09/10/18 11:58> Subjective - Date & Time of Evaluation Date of Evaluation: 09/10/18 Time of Evaluation: 11:58 - Subjective Subjective: Podiatry progress note: Dr. Lloyd 68 y/o M patient seen and evaluated in ICU for b/l ulcerations. Patient still intubated and artificially ventilated. Patient was sleeping at the visit time. As per patient chart Patient didn't have overnight F/N/V or C. Objective - Vital Signs/Intake and Output Vital Signs (last 24 hours): Temp Pulse Resp BP Pulse Ox 99.5 F 118 H 18 128/58 L 96 09/10/18 01:00 09/10/18 08:37 09/08/18 16:02 09/10/18 08:37 09/10/18 01:00 Intake and Output: 09/10/18 09/10/18 06:59 18:59 Intake Total 1593 100 Output Total 700 Balance 893 100 - Medications Medications: Current Medications Acetaminophen (Tylenol 325mg Tab) 650 mg PO Q6 PRN PRN Reason: TEMP>=99.5F Last Admin: 09/03/18 13:54 Dose: 650 mg Bisacodyl (Dulcolax) 10 mg RC HS PRN PRN Reason: Constipation Budesonide (Pulmicort Respules) 0.5 mg IH [id number] [facility] Last Admin: 09/10/18 07:02 Dose: 0.5 mg Collagenase (Santyl) 0 gm TOP DAILY [facility] Last Admin: 09/09/18 11:27 Dose: 1 appl Ergocalciferol (Drisdol 50,000 Intl Units Cap) 1 cap PO Q7D [facility] Last Admin: 09/09/18 15:56 Dose: 1 cap Folic Acid (Folic Acid) 1 mg PO DAILY [facility] Last Admin: 09/10/18 09:47 Dose: 1 mg Furosemide (Lasix) 60 mg IVP Q12 [facility] Last Admin: 09/09/18 23:28 Dose: 60 mg Heparin Sodium (Porcine) (Heparin) 5,000 units SC Q8 [facility]; Protocol Last Admin: 09/09/18 05:30 Dose: 5,000 units Dexmedetomidine HCl (Precedex 400mcg/100ml) 400 mcg in 100 mls @ 3.856 mls/hr IV .Q24H PRN; Protocol PRN Reason: Sedation Last Admin: 09/10/18 08:38 Dose: 0.5 mcg/kg/hr, 9.639 mls/hr Fentanyl Citrate (Fentanyl Citrate/Sodium Chloride 1 Mg/100 Ml) 1,000 mcg in 100 mls @ 2 mls/hr IV .Q24H PRN; Protocol PRN Reason: TITRATE PER MD ORDER Last Titration: 09/10/18 06:00 Dose: 120 mcg/hr, 12 mls/hr Meropenem/Sodium Chloride (Merrem Iv 500 Mg/Ns 50 Ml) 500 mg in 50 mls @ 100 mls/hr IVPB Q12 [facility]; Protocol Stop: 09/13/18 22:01 Last Admin: 09/10/18 09:48 Dose: 100 mls/hr Sodium Chloride (Sodium Chloride 0.9%) 2,000 mls @ 999 mls/hr IV .Q2H1M STA Stop: 09/10/18 12:15 NOREPINEPHRINE BIT/0.9 % NACL (Levophed 4 Mg/ 250 Ml Ns Premixed) 4 mg in 250 mls @ 15 mls/hr IV .[id number] PRN; Protocol PRN Reason: TITRATE PER MD ORDER Lactic Acid (Lac-Hydrin 12% Cream (140 G)) 0 ea TOP DAILY [facility] Last Admin: 09/10/18 09:37 Dose: 1 applic Levalbuterol HCl (Xopenex) 0.63 mg IH [id number] [facility] Last Admin: 09/10/18 07:02 Dose: 0.63 mg Metoprolol Tartrate (Lopressor) 5 mg IVP Q6 [facility] Last Admin: 09/10/18 08:37 Dose: 5 mg Morphine Sulfate (Morphine) 1 mg IVP Q4H PRN PRN Reason: Pain, severe (8-10) Last Admin: 09/10/18 06:06 Dose: 1 mg Nicotine (Nicoderm Cq) 1 patch TD DAILY [facility] Last Admin: 09/10/18 09:47 Dose: 1 patch Nystatin (Mycostatin Cream) 0 ea TOP TID [facility] Last Admin: 09/10/18 09:39 Dose: 1 cre Ondansetron HCl (Zofran Inj) 4 mg IVP Q4H PRN PRN Reason: Nausea/Vomiting Pantoprazole Sodium (Protonix Inj) 40 mg IVP DAILY [facility] Last Admin: 09/10/18 09:47 Dose: 40 mg Polyethylene Glycol (Miralax) 17 gm PO DAILY [facility] Last Admin: 09/10/18 09:39 Dose: Not Given Sodium Hypochlorite (Dakins Solution 0.25%) 0 ml TOP DAILY [facility] Last Admin: 09/10/18 09:49 Dose: 1 applic - Labs Labs: 09/10/18 05:30 09/10/18 05:30 PT 12.8 SECONDS (9.4-12.5) H 09/10/18 10:20 INR 1.13 09/10/18 10:20 APTT 23.0 Seconds (26.9-38.3) L 09/10/18 10:20 - Head Exam Head Exam: ATRAUMATIC - Extremities Exam Additional comments: B/L lE focused exam: VASC: DP/PT non-palpable, Temp gradient warm to warm bilaterally, Lymphedema noted bilaterally (improving), non-pitting. Cap refill < 3 sec to all digits. NEURO: grossly intact b/l. DERM: LEFT- 0.4 cm X 0.4 cm wound noted to submetatarsal 1 head, significantly improving, fibrotic base, no drainage, no tunneling, tracking or probe to bone, no malodor, multiple superficial wounds noted to the lateral aspect of the left ankle with 100% granular skin base, no drainage, no probe to bone, no tunneling or tracking, no malodor, chronic skin trophic changes secondary to long standing peripheral vascular disease, no signs of infection noted clinically. Improving. RIGHT- Superficial wound noted to the lateral aspect of the leg at the site of previous chronic skin trophic changes secondary to long standing peripheral vascular disease, wound base 100% granular, Mild sanguineous drainage, mild malodor, no tunneling, tracking or probe to bone. Improving. MSK: Muscle power and pain level couldn't be assessed as patient is sedated, intubated and ventilated. Assessment and Plan - Assessment and Plan (Free Text) Assessment: 68 y/o M with bilateral lower extremity stage 1 ulcers. Plan: Patient seen and evaluated Chars, Labs and vitals reviewed; Afebrile, WBC 9.4 Bilateral foot x-ray ordered; No evidence of OM Patient refused CT and MRI before. ID on board Reccs appreciated. continue IV as per ID Left foot wound cultures: MRSA, Morg rosalinagnanii Wounds cleansed with saline, dressed with bactroban, adaptic, ABD DSD No podiatric intervention planned at this time, in our clinical judgement no evidence of OM, however, cannot be confirmed as patient has refused both MRI/CT Podiatry will continue to follow up the patient while in house. <Kvng Lloyd - Last Filed: 09/10/18 17:10> Objective - Vital Signs/Intake and Output Vital Signs (last 24 hours): Temp Pulse Resp BP Pulse Ox 97.5 F L 121 H 20 155/76 H 96 09/10/18 12:08 09/10/18 12:08 09/10/18 05:06 09/10/18 12:08 09/10/18 12:08 Intake and Output: 09/10/18 09/10/18 06:59 18:59 Intake Total 1593 297 Output Total 700 Balance 893 297 - Medications Medications: Current Medications Acetaminophen (Tylenol 325mg Tab) 650 mg PO Q6 PRN PRN Reason: TEMP>=99.5F Last Admin: 09/03/18 13:54 Dose: 650 mg Bisacodyl (Dulcolax) 10 mg RC HS PRN PRN Reason: Constipation Budesonide (Pulmicort Respules) 0.5 mg IH [id number] [facility] Last Admin: 09/10/18 07:02 Dose: 0.5 mg Collagenase (Santyl) 0 gm TOP DAILY [facility] Last Admin: 09/10/18 15:33 Dose: 1 appl Ergocalciferol (Drisdol 50,000 Intl Units Cap) 1 cap PO Q7D [facility] Last Admin: 09/09/18 15:56 Dose: 1 cap Folic Acid (Folic Acid) 1 mg PO DAILY [facility] Last Admin: 09/10/18 09:47 Dose: 1 mg Furosemide (Lasix) 60 mg IVP Q12 [facility] Last Admin: 09/09/18 23:28 Dose: 60 mg Heparin Sodium (Porcine) (Heparin) 5,000 units SC Q8 [facility]; Protocol Last Admin: 09/09/18 05:30 Dose: 5,000 units Dexmedetomidine HCl (Precedex 400mcg/100ml) 400 mcg in 100 mls @ 3.856 mls/hr IV .Q24H PRN; Protocol PRN Reason: Sedation Last Titration: 09/10/18 15:46 Dose: 1.5 mcg/kg/hr, 28.917 mls/hr Fentanyl Citrate (Fentanyl Citrate/Sodium Chloride 1 Mg/100 Ml) 1,000 mcg in 100 mls @ 2 mls/hr IV .Q24H PRN; Protocol PRN Reason: TITRATE PER MD ORDER Last Titration: 09/10/18 14:36 Dose: 150 mcg/hr, 15 mls/hr Meropenem/Sodium Chloride (Merrem Iv 500 Mg/Ns 50 Ml) 500 mg in 50 mls @ 100 m ls/hr IVPB Q12 [facility]; Protocol Stop: 09/13/18 22:01 Last Admin: 09/10/18 09:48 Dose: 100 mls/hr NOREPINEPHRINE BIT/0.9 % NACL (Levophed 4 Mg/ 250 Ml Ns Premixed) 4 mg in 250 mls @ 15 mls/hr IV .[id number] PRN; Protocol PRN Reason: TITRATE PER MD ORDER Last Admin: 09/10/18 12:15 Dose: 4 mcg/min, 15 mls/hr Lactic Acid (Lac-Hydrin 12% Cream (140 G)) 0 ea TOP DAILY [facility] Last Admin: 09/10/18 09:37 Dose: 1 applic Levalbuterol HCl (Xopenex) 0.63 mg IH [id number] [facility] Last Admin: 09/10/18 13:28 Dose: 0.63 mg Metoprolol Tartrate (Lopressor) 5 mg IVP Q6 [facility] Last Admin: 09/10/18 13:33 Dose: Not Given Morphine Sulfate (Morphine) 1 mg IVP Q4H PRN PRN Reason: Pain, severe (8-10) Last Admin: 09/10/18 12:18 Dose: 1 mg Nicotine (Nicoderm Cq) 1 patch TD DAILY [facility] Last Admin: 09/10/18 09:47 Dose: 1 patch Nystatin (Mycostatin Cream) 0 ea TOP TID [facility] Last Admin: 09/10/18 15:36 Dose: 1 cre Ondansetron HCl (Zofran Inj) 4 mg IVP Q4H PRN PRN Reason: Nausea/Vomiting Pantoprazole Sodium (Protonix Inj) 40 mg IVP DAILY [facility] Last Admin: 09/10/18 09:47 Dose: 40 mg Polyethylene Glycol (Miralax) 17 gm PO DAILY [facility] Last Admin: 09/10/18 09:39 Dose: Not Given Sodium Hypochlorite (Dakins Solution 0.25%) 0 ml TOP DAILY [facility] Last Admin: 09/10/18 09:49 Dose: 1 applic - Labs Labs: 09/10/18 05:30 09/10/18 05:30 PT 12.8 SECONDS (9.4-12.5) H 09/10/18 10:20 INR 1.13 09/10/18 10:20 APTT 23.0 Seconds (26.9-38.3) L 09/10/18 10:20 Attending/Attestation - Attestation I have personally seen and examined this patient.: Yes I have fully participated in the care of the patient.: Yes I have reviewed all pertinent clinical information, including history, physical exam and plan: Yes
[2018-09-10] MEDS: NOREPINEPHRINE BIT/0.9 % NACL 4 MG/250 ML BAG IV PRN (12:15)
--- NOTE | 2018-09-10 12:27 | PN ---
DATE: 09/10/2018 LOCATION: The patient is in [facility] Critical Care Unit in room 128, bed 4. SUBJECTIVE: The patient is being seen in the hospital for several weeks. The patient has medical conditions, he had presented with ulceration of his foot and infection in both feet. The patient also had back pain. At the time of evaluation the patient also had some difficulty in breathing. After evaluation the patient was hospitalized. Currently, the patient is in the Critical Care Unit as mentioned. The patient is intubated. He has been maintained by artificial ventilation. His current problem is that he has pneumonia in the lungs. He has pleural effusion. He has disease of the left lung. The patient also has cardiorespiratory problem with unstable blood pressure and tachycardia. The patient has chronic obstructive lung disease by history. Has history of cigarette smoking for many years, but the patient denies alcohol and drug abuse, that is from the history. PHYSICAL EXAMINATION VITAL SIGNS: This morning the patient's vital signs, the pulse is 112 and blood pressure is 137/57. The patient is comfortably breathing under sedation. LUNGS: Breath sounds diminished bilaterally, hardly any breath sounds in the left side of the chest. HEART: Normal sinus rhythm. Sinus tachycardia. ABDOMEN: Soft. No tenderness. No masses. CENTRAL NERVOUS SYSTEM: The patient is conscious and the patient is able to nod when you ask him questions. The patient has no focal neurological signs. The feeding is done with nasogastric tube and the patient is on multiple medications list of which one is Ativan. The patient is on vitamin D and fentanyl for pain. The patient is on heparin. The patient is on Lasix, metoprolol, antibiotic meropenem, morphine sulfate for pain also, nicotine patch for withdrawal from cigarettes; he is getting Precedex for sedation while on the respirator, pantoprazole 40 mg daily. He gets pulmonary treatments with Xopenex and Pulmicort. The patient is also getting Tylenol for fever. His overall condition is critical. Will continue current management and followup. He is not going to be extubated at this time as I see. Donovan Aleman MD [facility]
--- NOTE | 2018-09-10 12:55 | PN ---
DATE: 09/10/2018(435am-615am) SUBJECTIVE: The patient appears comfortable this morning. He remains on the ventilator. He is awake and alert. PHYSICAL EXAMINATION: VITAL SIGNS: Temperature 99.5, pulse on the monitor is 104, respiratory rate 22/20, blood pressure 137/57. HEENT: Normocephalic, atraumatic. NECK: No JVD. CARDIOVASCULAR: Systolic ejection murmur at the lower left sternal border. Positive S3 gallop. LUNGS: Decreased breath sounds with crackles at both bases. Less rhonchi. No wheezing. EXTREMITIES: Mild edema. No cyanosis. No clubbing. Calves are nontender to palpation. GI: Abdomen is soft, nontender and nondistended. Bowel sounds are positive. SKIN: Positive decubitus ulcers. Positive bilateral lower extremity ulcers. NEUROLOGIC: Exam limited at the present time. PERTINENT LABORATORY DATA: Chest x-ray was done this morning and reviewed. The chest x-ray appears similar to yesterday's film. Arterial blood gas was done on PRVC 20, tidal volume 400, FiO2 60%, PEEP of 5. Results are: pH 7.38, pCO2 of 57, pO2 of 65. IMPRESSION: 1. Respiratory failure. 2. Recurrent atelectasis - left lung. 3. Congestive heart failure. 4. Bilateral pleural effusions. 5. Diffuse right lung infiltrate. 6. Chronic obstructive pulmonary disease. 7. Renal insufficiency. PLAN: The patient remains intubated. He is awake and alert. He does appear comfortable on the ventilator. I did discuss the case with the night nurse at length. The night nurse stated that the patient had an uneventful night. I did review the chest x-ray from this morning. The chest x-ray is not significantly changed from yesterday's film. Official results are pending. I have also reviewed the arterial blood gas. Unfortunately, the arterial blood gas is worse - now with a respiratory acidosis and increasing alveolar-arterial gradient. Due to the arterial blood gas results, weaning will not be tried this morning. I did discuss the case with Dr. Velázquez (ICU) at length. The patient may in fact need tracheostomy, and/or LTAC transfer in the near future. I would continue with the antibiotic coverage as per Infectious Disease. There are low-grade temperatures noted. The leukocytosis has resolved. Inputs by Renal and Cardiology are also noted. The patient remains critically ill with overall very guarded/poor prognosis. I will discuss the above with the entire ICU team in the next few moments. I will also discuss the above with the attending physician later this morning. Mike Mahmood MD [facility]
[2018-09-10] MEDS ORDERED: Vancomycin 1.5 GM in Sodium Chloride 0.9% 500 ML IVPB ONE (13:31)
--- NOTE | 2018-09-10 13:31 | CP.PCM.PN ---
Subjective - Date & Time of Evaluation Date of Evaluation: 09/10/18 Time of Evaluation: 10:00 - Subjective Subjective: Patient continues to be intubated and sedated, has low grade temperatures. Objective - Vital Signs/Intake and Output Vital Signs (last 24 hours): Temp Pulse Resp BP Pulse Ox 98.4 F 84 18 86/38 L 97 09/09/18 12:00 09/09/18 12:00 09/08/18 16:02 09/09/18 12:00 09/09/18 12:00 Intake and Output: 09/09/18 09/09/18 06:59 18:59 Intake Total 250 285 Output Total 400 Balance -150 285 - Medications Medications: Current Medications Acetaminophen (Tylenol 325mg Tab) 650 mg PO Q6 PRN PRN Reason: TEMP>=99.5F Last Admin: 09/03/18 13:54 Dose: 650 mg Bisacodyl (Dulcolax) 10 mg RC HS PRN PRN Reason: Constipation Budesonide (Pulmicort Respules) 0.5 mg IH [id number] [facility] Last Admin: 09/09/18 07:24 Dose: 0.5 mg Collagenase (Santyl) 0 gm TOP DAILY [facility] Last Admin: 09/09/18 11:27 Dose: 1 appl Ergocalciferol (Drisdol 50,000 Intl Units Cap) 1 cap PO Q7D [facility] Last Admin: 09/02/18 15:26 Dose: 1 cap Folic Acid (Folic Acid) 1 mg PO DAILY [facility] Last Admin: 09/09/18 10:51 Dose: 1 mg Furosemide (Lasix) 60 mg IVP Q12 [facility] Last Admin: 09/09/18 10:55 Dose: Not Given Heparin Sodium (Porcine) (Heparin) 5,000 units SC Q8 [facility]; Protocol Last Admin: 09/09/18 05:30 Dose: 5,000 units Dexmedetomidine HCl (Precedex 400mcg/100ml) 400 mcg in 100 mls @ 3.856 mls/hr IV .Q24H PRN; Protocol PRN Reason: Sedation Last Titration: 09/09/18 12:36 Dose: 0.5 mcg/kg/hr, 9.639 mls/hr Fentanyl Citrate (Fentanyl Citrate/Sodium Chloride 1 Mg/100 Ml) 1,000 mcg in 100 mls @ 2 mls/hr IV .Q24H PRN; Protocol PRN Reason: TITRATE PER MD ORDER Last Admin: 09/09/18 11:10 Dose: 100 mcg/hr, 10 mls/hr Meropenem/Sodium Chloride (Merrem Iv 500 Mg/Ns 50 Ml) 500 mg in 50 mls @ 100 mls/hr IVPB Q12 [facility]; Protocol Stop: 09/13/18 22:01 Last Admin: 09/09/18 10:50 Dose: 100 mls/hr Lactic Acid (Lac-Hydrin 12% Cream (140 G)) 0 ea TOP DAILY [facility] Last Admin: 09/09/18 11:26 Dose: 1 applic Levalbuterol HCl (Xopenex) 0.63 mg IH [id number] [facility] Last Admin: 09/09/18 13:13 Dose: 0.63 mg Metoprolol Tartrate (Lopressor) 5 mg IVP Q6 [facility] Last Admin: 09/09/18 05:23 Dose: 5 mg Morphine Sulfate (Morphine) 1 mg IVP Q4H PRN PRN Reason: Pain, severe (8-10) Last Admin: 09/07/18 22:40 Dose: 1 mg Nicotine (Nicoderm Cq) 1 patch TD DAILY [facility] Last Admin: 09/09/18 10:51 Dose: 1 patch Nystatin (Mycostatin Cream) 0 ea TOP TID [facility] Last Admin: 09/09/18 11:27 Dose: 1 cre Ondansetron HCl (Zofran Inj) 4 mg IVP Q4H PRN PRN Reason: Nausea/Vomiting Pantoprazole Sodium (Protonix Inj) 40 mg IVP DAILY [facility] Last Admin: 09/09/18 10:51 Dose: 40 mg Polyethylene Glycol (Miralax) 17 gm PO DAILY [facility] Last Admin: 09/09/18 10:52 Dose: 17 gm Sodium Hypochlorite (Dakins Solution 0.25%) 0 ml TOP DAILY [facility] Last Admin: 09/09/18 11:25 Dose: 1 applic - Labs Labs: 09/09/18 05:30 09/09/18 05:30 PT 15.1 SECONDS (9.4-12.5) H 08/23/18 22:20 INR 1.36 08/23/18 22:20 APTT 27.9 Seconds (26.9-38.3) 08/23/18 22:20 - Constitutional Appears: Chronically Ill, Other (intubated, sedated) - ENT Exam Additional comments: ET tube in place - Neck Exam Additional comments: right IJ TLC in place - Respiratory Exam Respiratory Exam: Decreased Breath Sounds - Cardiovascular Exam Cardiovascular Exam: +S1, +S2 - GI/Abdominal Exam GI & Abdominal Exam: Soft. absent: Tenderness - Extremities Exam Additional comments: both feet with dressings in place Assessment and Plan - Assessment and Plan (Free Text) Plan: Assessment severe sepsis / S/P shock now again with ventilator-dependent respiratory fail ure and acute renal failure due to probable right lower lobe hospital-acquired pneumonia, with bilateral pleural effusions S/P right sided thoracentesis, now again with left hemithorax opacification with mucus plugging S/P bronchoscopy and removal of mucus plugs Infected left lower extremity wounds, R/O osteomyelitis, grew MRSA chronic back pain vertebral disc disease venous stasis dermatitis Plan we have discontinued Zyvox because of low platelets (multifoactorial cause) and will continue intermittent Vancomycin IV and will also continue Merrem (day 4 of antibiotics from time of bronchoscopy) - follow up repeat blood cx are negative sputum cx (from sample taken from bronchoscopy 2 days ago) showing C. tropicalis which is probably colonization; Vancomycin will also cover the MRSA in the foot mucus plugs were noted and removed during bronchoscopy 09/06/2018 awaiting MRI of the foot but patient is critically ill currently patient had thoracentesis previously on the right and fluid looks to be transudative discussed with Dr. Lloyd - no surgery for the foot for now will continue to follow clinically monitor platelet count overall prognosis is poor
--- NOTE | 2018-09-10 14:10 | PN ---
DATE: 09/10/2018 SUBJECTIVE: The patient remains on a ventilator. PHYSICAL EXAMINATION: SAVANAH SIGNS: Blood pressure 128/58, heart rate is sinus tachycardia at 110. NECK: Negative JVD. LUNGS: Decreased breath sounds. HEART: S1, S2. EXTREMITIES: Without change. LABORATORY DATA: Hemoglobin is 10.2, BUN and creatinine is 76 and 1.7, glucose is 149. IMPRESSION: 1. Respiratory failure. 2. Bilateral pneumonia. 3. Pleural effusions. 4. Status post thoracentesis. PLAN: Given these findings, attempts at weaning off the ventilator will be tried again today. Jero Salamanca MD
[2018-09-10] MEDS: Collagenase 250 Units/gm Ointment(30 gm) TOP SCH (15:33)
--- NOTE | 2018-09-10 17:56 | CP.PCM.PN ---
Subjective - Date & Time of Evaluation Date of Evaluation: 09/10/18 Time of Evaluation: 13:00 - Subjective Subjective: renal note no events overnight vitals reviewed gen: nad sclera: anicteric op: normal neck: supple cv: +S1+s2 lungs: coarse bs b/l abds: soft nt ext: trace edema neuro: follows commands no focal deficit psych: flat skin:dressing on b/l le = FRANCES/ATN/CHF/sepsis syndrome/acute resp failure/hyponatremia / hypokalemia frances likely 2/2 to shock/atn. Cr stable, remains oliguric. Continue supportive measures. = monitor UP and lytes diuretics as needed when stable please check renal US lytes reviewed volume status improving Objective - Vital Signs/Intake and Output Vital Signs (last 24 hours): Temp Pulse Resp BP Pulse Ox 97.5 F L 88 20 91/50 L 96 09/10/18 12:08 09/10/18 17:28 09/10/18 05:06 09/10/18 17:28 09/10/18 12:08 Intake and Output: 09/10/18 09/10/18 06:59 18:59 Intake Total 1593 417 Output Total 700 Balance 893 417 - Medications Medications: Current Medications Acetaminophen (Tylenol 325mg Tab) 650 mg PO Q6 PRN PRN Reason: TEMP>=99.5F Last Admin: 09/03/18 13:54 Dose: 650 mg Bisacodyl (Dulcolax) 10 mg RC HS PRN PRN Reason: Constipation Budesonide (Pulmicort Respules) 0.5 mg IH [id number] [facility] Last Admin: 09/10/18 07:02 Dose: 0.5 mg Collagenase (Santyl) 0 gm TOP DAILY [facility] Last Admin: 09/10/18 15:33 Dose: 1 appl Ergocalciferol (Drisdol 50,000 Intl Units Cap) 1 cap PO Q7D [facility] Last Admin: 09/09/18 15:56 Dose: 1 cap Folic Acid (Folic Acid) 1 mg PO DAILY [facility] Last Admin: 09/10/18 09:47 Dose: 1 mg Furosemide (Lasix) 60 mg IVP Q12 [facility] Last Admin: 09/09/18 23:28 Dose: 60 mg Heparin Sodium (Porcine) (Heparin) 5,000 units SC Q8 [facility]; Protocol Last Admin: 09/09/18 05:30 Dose: 5,000 units Dexmedetomidine HCl (Precedex 400mcg/100ml) 400 mcg in 100 mls @ 3.856 mls/hr IV .Q24H PRN; Protocol PRN Reason: Sedation Last Titration: 09/10/18 17:27 Dose: 1.5 mcg/kg/hr, 28.917 mls/hr Fentanyl Citrate (Fentanyl Citrate/Sodium Chloride 1 Mg/100 Ml) 1,000 mcg in 100 mls @ 2 mls/hr IV .Q24H PRN; Protocol PRN Reason: TITRATE PER MD ORDER Last Titration: 09/10/18 17:20 Dose: 50 mcg/hr, 5 mls/hr Meropenem/Sodium Chloride (Merrem Iv 500 Mg/Ns 50 Ml) 500 mg in 50 mls @ 100 mls/hr IVPB Q12 [facility]; Protocol Stop: 09/13/18 22:01 Last Admin: 09/10/18 09:48 Dose: 100 mls/hr NOREPINEPHRINE BIT/0.9 % NACL (Levophed 4 Mg/ 250 Ml Ns Premixed) 4 mg in 250 mls @ 15 mls/hr IV .[id number] PRN; Protocol PRN Reason: TITRATE PER MD ORDER Last Titration: 09/10/18 17:23 Dose: 4 mcg/min, 15 mls/hr Lactic Acid (Lac-Hydrin 12% Cream (140 G)) 0 ea TOP DAILY [facility] Last Admin: 09/10/18 09:37 Dose: 1 applic Levalbuterol HCl (Xopenex) 0.63 mg IH [id number] [facility] Last Admin: 09/10/18 13:28 Dose: 0.63 mg Metoprolol Tartrate (Lopressor) 5 mg IVP Q6 [facility] Last Admin: 09/10/18 17:28 Dose: Not Given Morphine Sulfate (Morphine) 1 mg IVP Q4H PRN PRN Reason: Pain, severe (8-10) Last Admin: 09/10/18 12:18 Dose: 1 mg Nicotine (Nicoderm Cq) 1 patch TD DAILY [facility] Last Admin: 09/10/18 09:47 Dose: 1 patch Nystatin (Mycostatin Cream) 0 ea TOP TID [facility] Last Admin: 09/10/18 17:30 Dose: 1 cre Ondansetron HCl (Zofran Inj) 4 mg IVP Q4H PRN PRN Reason: Nausea/Vomiting Pantoprazole Sodium (Protonix Inj) 40 mg IVP DAILY [facility] Last Admin: 09/10/18 09:47 Dose: 40 mg Polyethylene Glycol (Miralax) 17 gm PO DAILY [facility] Last Admin: 09/10/18 09:39 Dose: Not Given Sodium Hypochlorite (Dakins Solution 0.25%) 0 ml TOP DAILY [facility] Last Admin: 09/10/18 09:49 Dose: 1 applic - Labs Labs: 09/10/18 05:30 09/10/18 05:30 PT 12.8 SECONDS (9.4-12.5) H 09/10/18 10:20 INR 1.13 09/10/18 10:20 APTT 23.0 Seconds (26.9-38.3) L 09/10/18 10:20
[2018-09-11] MEDS: Metoprolol 1 mg/ml Inj IVP SCH ×4 (01:32→17:33)
[2018-09-11] MEDS: Levalbuterol 0.63 MG/3 ML Inhal Soln UD IH SCH ×4 (01:45→19:31)
[2018-09-11] MEDS: Dexmedetomidine 400mcg/100mL 400 MCG/100 ML BOTTLE IV PRN ×7 (02:58→23:50)
[2018-09-11] MEDS: Morphine 2 mg/ml ISec IVP PRN (04:11)
[2018-09-11] MEDS: NOREPINEPHRINE BIT/0.9 % NACL 4 MG/250 ML BAG IV PRN ×2 (05:32→20:23)
[2018-09-11 06:21] LABS: BASO # 0.07 K/mm3 (0.0-2.0); BASO % 0.6 % (0.0-3.0); EOS % 17.5 % (1.5-5.0); HEMOGLOBIN 9.6 g/dL (14.0-18.0); LYMPH # 1.1 (1.2-3.4); MEAN CELL VOLUME 93.2 fl (80.0-105.0); MEAN CORPUSCULAR HEMOGLOBIN 27.2 pg (25.0-35.0); MEAN CORPUSCULAR HGB CONC 29.2 g/dl (31.0-37.0); MEAN PLATELET VOLUME 10.5 fl (7.0-11.0); MONO # 0.4 (0.1-0.6); MONO % 3.8 % (1.0-6.0); RBC 3.53 10^6/uL (3.5-6.1); RED CELL DISTRIBUTION WIDTH 16.3 % (11.5-14.5); WHITE BLOOD COUNT 11.4 10^3/uL (4.5-11.0)
[2018-09-11 06:31] LABS: B-TYPE NATRIURETIC PEPTIDE 4680 pg/mL (0-450)
[2018-09-11 06:36] LABS: ALB/GLOB RATIO 0.7 (1.1-1.8); ALBUMIN 2.1 g/dL (3.0-4.8); ALT/SGPT 27 U/L (7-56); AST/SGOT 29 U/L (17-59); BILIRUBIN,DIRECT 0.4 mg/dL (0.0-0.4); BLOOD UREA NITROGEN 83 mg/dL (7-21); CALCIUM 7.7 mg/dL (8.4-10.5); GFR NON-AFRICAN AMERICAN 50
[2018-09-11] MEDS: Fentanyl 1000mcg/100ml NS 1,000 MCG/100 ML BAG IV PRN ×3 (07:09→20:22)
[2018-09-11 07:11] LABS: ARTERIAL BLOOD GAS HCO3 30.6 mmol/L (21-28); ARTERIAL BLOOD GAS HEMOGLOBIN 8.8 g/dL (11.7-17.4); ARTERIAL BLOOD GAS O2 CONTENT 11.3 ML/dl (15-23); ARTERIAL BLOOD GAS O2 SAT 94.5 % (95-98); ARTERIAL BLOOD GAS PCO2 53 mm/Hg (35-45); ARTERIAL BLOOD GAS PH 7.37 (7.35-7.45); ARTERIAL BLOOD GAS TCO2 32.2 mmol.L (22-28)
[2018-09-11] MEDS: Budesonide 0.5 mg/2 ml Inhal Susp UD IH SCH ×2 (07:29→19:31)
--- NOTE | 2018-09-11 09:10 | PN ---
DATE: 09/11/2018(640am-730am) PULMONARY NOTE SUBJECTIVE: The patient remains on the ventilator. He is awake and alert. PHYSICAL EXAMINATION: VITAL SIGNS: Temperature is 98.1, pulse 91, respiratory rate 24/20, blood pressure 145/60. HEENT: Normocephalic, atraumatic. No JVD. CARDIOVASCULAR: Systolic ejection murmur at the lower left sternal border. Positive S3 gallop. LUNGS: Decreased breath sounds with crackles at both bases. Mild bilateral rhonchi. No wheezing. GI: Abdomen is soft, nontender, nondistended. Bowel sounds are positive. EXTREMITIES: Mild edema. No cyanosis, no clubbing. Calves are nontender to palpation. SKIN: Positive decubitus ulcers. Positive bilateral lower extremity ulcers. NEUROLOGIC: Exam limited at the present time. PERTINENT LABORATORY DATA: Chest x-ray was done this morning and reviewed. The infiltrate in the right lung appears improved overall. However, there is probably a combination of effusion and infiltrate noted at the right base. The left lung does show mild improvement. Arterial blood gas was done on PRVC 20, tidal volume 400, FIO2 60%, PEEP of 10. Results are: PH 7.37, pCO2 of 53, pO2 of 60. IMPRESSION: 1. Respiratory failure. 2. Recurrent atelectasis - left lung. 3. Congestive heart failure. 4. Bilateral pleural effusions. 5. Diffuse right lung infiltrate. 6. Chronic obstructive pulmonary disease. 7. Renal insufficiency. PLAN: The patient remains intubated. He is awake and alert. He does appear comfortable on the ventilator. I did discuss the case with the night nurse at length. The night nurse stated that the patient had an uneventful night. I did review the chest x-ray from this morning. Findings are noted above. Official results are pending. I have also reviewed the arterial blood gas. Unfortunately, the arterial blood gas has not improved and remains with a mixed acid-base disturbance, along with a significant alveolar-arterial gradient. I will continue with the PEEP and increase the FIO2 this morning. I did discuss these changes with Respiratory. I would continue with the antibiotic coverage as per Infectious Disease. Input by Dr. Kelley is noted. The temperatures have now resolved. However, there is a very mild leukocytosis. Inputs by Renal and Cardiology are also noted. The patient remains critically ill with very guarded/poor prognosis. I will discuss the above with the entire ICU team in the next few moments. I will also discuss the above with the attending physician later this morning. Mike Mahmood MD [facility]
--- NOTE | 2018-09-11 09:23 | PCM.PROC ---
Procedures Attestation:: I certify that I have explained the specified Operation(s) or Procedure(s), risks, benefits and reasonable alternatives to the Patient and/or other person responsible. 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
[2018-09-11] MEDS: MEROPENEM 500 MG in NS 500 MG/50 ML BAG IVPB SCH ×2 (09:25→21:08)
[2018-09-11] MEDS: POLYETHYLENE GLYCOL 3350 17 GM/Dose PACKET PO SCH (09:26)
--- NOTE | 2018-09-11 09:30 | RAD ---
Date of service: 09/11/2018 HISTORY: f/u COMPARISON: 09/10/2018 FINDINGS: Endotracheal tube terminates 1.1 cm proximal to the [place]. The nasogastric tube terminates in the distal esophagus. The right IJV line terminates at the cavoatrial junction. LUNGS: There is low lung volume on the right. There is redemonstration of nodular airspace disease in the right lung and more confluent airspace disease in the right lower lobe. The left lung is clear. PLEURA: No change in bilateral effusions, larger on the left. No pneumothorax. CARDIOVASCULAR: There is mild cardiomegaly. There are aortic atherosclerotic calcifications present. OSSEOUS STRUCTURES: Within normal limits for the patient's age. VISUALIZED UPPER ABDOMEN: Normal. OTHER FINDINGS: None. IMPRESSION: Nasogastric tube terminates in the distal esophagus. No change in nodular airspace disease in the right lung and more confluent airspace disease in the right lower lobe and bilateral effusions. The
[2018-09-11] MEDS: Nystatin 100,000 Units/gm Cream(15 gm) TOP SCH ×3 (09:34→17:34)
[2018-09-11] MEDS: Collagenase 250 Units/gm Ointment(30 gm) TOP SCH (09:35)
[2018-09-11] MEDS: Ammonium Lactate 12% Cream (140 g) TOP SCH (09:36)
[2018-09-11] MEDS: Dakin's Topical 0.25%-Half Strength (480 ml) TOP SCH (09:37)
--- NOTE | 2018-09-11 10:10 | CP.PCM.PN ---
<Kishor Liu - Last Filed: 09/11/18 10:07> Subjective - Date & Time of Evaluation Date of Evaluation: 09/11/18 Time of Evaluation: 10:08 - Subjective Subjective: Podiatry progress note: Dr. Lloyd 68 y/o M patient seen and evaluated in ICU for b/l ulcerations. Patient responsive to pain. As per patient charts, no acute overnight events. Patient didn't have overnight F/N/V or C. Objective - Vital Signs/Intake and Output Vital Signs (last 24 hours): Temp Pulse Resp BP Pulse Ox 98.1 F 82 48 H 83/48 L 93 L 09/10/18 16:00 09/11/18 08:00 09/11/18 05:06 09/11/18 08:00 09/11/18 08:00 Intake and Output: 09/11/18 09/11/18 06:59 18:59 Intake Total 1140 220 Output Total 700 Balance 440 220 - Medications Medications: Current Medications Acetaminophen (Tylenol 325mg Tab) 650 mg PO Q6 PRN PRN Reason: TEMP>=99.5F Last Admin: 09/03/18 13:54 Dose: 650 mg Bisacodyl (Dulcolax) 10 mg RC HS PRN PRN Reason: Constipation Budesonide (Pulmicort Respules) 0.5 mg IH [id number] [facility] Last Admin: 09/11/18 07:29 Dose: 0.5 mg Collagenase (Santyl) 0 gm TOP DAILY [facility] Last Admin: 09/11/18 09:35 Dose: 1 appl Ergocalciferol (Drisdol 50,000 Intl Units Cap) 1 cap PO Q7D [facility] Last Admin: 09/09/18 15:56 Dose: 1 cap Folic Acid (Folic Acid) 1 mg PO DAILY [facility] Last Admin: 09/11/18 09:26 Dose: 1 mg Furosemide (Lasix) 60 mg IVP Q12 [facility] Last Admin: 09/09/18 23:28 Dose: 60 mg Heparin Sodium (Porcine) (Heparin) 5,000 units SC Q8 [facility]; Protocol Last Admin: 09/09/18 05:30 Dose: 5,000 units Dexmedetomidine HCl (Precedex 400mcg/100ml) 400 mcg in 100 mls @ 3.856 mls/hr IV .Q24H PRN; Protocol PRN Reason: Sedation Last Admin: 09/11/18 10:02 Dose: 1.5 mcg/kg/hr, 28.917 mls/hr Fentanyl Citrate (Fentanyl Citrate/Sodium Chloride 1 Mg/100 Ml) 1,000 mcg in 100 mls @ 2 mls/hr IV .Q24H PRN; Protocol PRN Reason: TITRATE PER MD ORDER Last Titration: 09/11/18 07:10 Dose: 150 mcg/hr, 15 mls/hr Meropenem/Sodium Chloride (Merrem Iv 500 Mg/Ns 50 Ml) 500 mg in 50 mls @ 100 mls/hr IVPB Q12 [facility]; Protocol Stop: 09/13/18 22:01 Last Admin: 09/11/18 09:25 Dose: 100 mls/hr NOREPINEPHRINE BIT/0.9 % NACL (Levophed 4 Mg/ 250 Ml Ns Premixed) 4 mg in 250 mls @ 15 mls/hr IV .[id number] PRN; Protocol PRN Reason: TITRATE PER MD ORDER Last Admin: 09/11/18 05:32 Dose: 4 mcg/min, 15 mls/hr Lactic Acid (Lac-Hydrin 12% Cream (140 G)) 0 ea TOP DAILY [facility] Last Admin: 09/11/18 09:36 Dose: 1 applic Levalbuterol HCl (Xopenex) 0.63 mg IH [id number] [facility] Last Admin: 09/11/18 07:30 Dose: 0.63 mg Metoprolol Tartrate (Lopressor) 5 mg IVP Q6 [facility] Last Admin: 09/11/18 05:48 Dose: 5 mg Morphine Sulfate (Morphine) 1 mg IVP Q4H PRN PRN Reason: Pain, severe (8-10) Last Admin: 09/11/18 04:11 Dose: 1 mg Nicotine (Nicoderm Cq) 1 patch TD DAILY [facility] Last Admin: 09/11/18 09:26 Dose: 1 patch Nystatin (Mycostatin Cream) 0 ea TOP TID [facility] Last Admin: 09/11/18 09:34 Dose: 1 cre Ondansetron HCl (Zofran Inj) 4 mg IVP Q4H PRN PRN Reason: Nausea/Vomiting Pantoprazole Sodium (Protonix Inj) 40 mg IVP DAILY [facility] Last Admin: 09/11/18 09:25 Dose: 40 mg Polyethylene Glycol (Miralax) 17 gm PO DAILY [facility] Last Admin: 09/11/18 09:26 Dose: 17 gm Sodium Hypochlorite (Dakins Solution 0.25%) 0 ml TOP DAILY [facility] Last Admin: 09/11/18 09:37 Dose: 1 applic - Labs Labs: 09/11/18 05:45 09/11/18 05:45 PT 12.8 SECONDS (9.4-12.5) H 09/10/18 10:20 INR 1.13 09/10/18 10:20 APTT 23.0 Seconds (26.9-38.3) L 09/10/18 10:20 - Constitutional Appears: Well, Toxic, No Acute Distress - Head Exam Head Exam: ATRAUMATIC, NORMOCEPHALIC - Extremities Exam Additional comments: B/L lE focused exam: VASC: DP/PT non-palpable, Temp gradient warm to warm bilaterally, Lymphedema noted bilaterally (improving), non-pitting. Cap refill < 3 sec to all digits. NEURO: grossly intact b/l. DERM: LEFT- 0.4 cm X 0.4 cm wound noted to submetatarsal 1 head, significantly improving, fibrotic base, no drainage, no tunneling, tracking or probe to bone, no malodor, multiple superficial wounds noted to the lateral aspect of the left ankle with 100% granular skin base, no drainage, no probe to bone, no tunneling or tracking, no malodor, chronic skin trophic changes secondary to long standing peripheral vascular disease, no signs of infection noted clinically. Improving. RIGHT- Superficial wound noted to the lateral aspect of the leg at the site of previous chronic skin trophic changes secondary to long standing peripheral vascular disease, wound base 100% granular, Mild sanguineous drainage, mild malodor, no tunneling, tracking or probe to bone. Improving. MSK: Muscle power and pain level couldn't be assessed as patient is sedated, intubated and ventilated. - Neurological Exam Neurological Exam: Alert, Oriented x3 - Psychiatric Exam Psychiatric exam: Normal Affect, Normal Mood Assessment and Plan - Assessment and Plan (Free Text) Assessment: 68 y/o male patient with bilateral lower extremity wounds, significantly improving Plan: Patient seen and evaluated Ch[facility], Labs and vitals reviewed; Afebrile, WBC 11.4 Bilateral foot x-ray ordered; No evidence of OM Patient refused CT and MRI before. ID on board Reccs appreciated. continue IV as per ID Left foot wound cultures: MRSA, Morg morgnanii Wounds cleansed with saline, dressed with bactroban, adaptic, ABD DSD No podiatric intervention planned at this time, in our clinical judgement no evidence of OM, however, cannot be confirmed as patient has refused both MRI/CT Podiatry will continue to follow up the patient while in house. <Kvng Lloyd - Last Filed: 09/14/18 13:14> Objective - Vital Signs/Intake and Output Vital Signs (last 24 hours): Temp Pulse Resp BP Pulse Ox 97.4 F L 58 L 21 110/47 L 96 09/14/18 05:00 09/14/18 08:00 09/14/18 07:35 09/14/18 08:00 09/14/18 08:00 Intake and Output: 09/14/18 09/14/18 06:59 18:59 Intake Total 1490 275 Output Total 800 Balance 690 275 - Medications Medications: Current Medications Acetaminophen (Tylenol 325mg Tab) 650 mg PO Q6 PRN PRN Reason: TEMP>=99.5F Last Admin: 09/03/18 13:54 Dose: 650 mg Budesonide (Pulmicort Respules) 0.5 mg IH [id number] [facility] Last Admin: 09/14/18 07:28 Dose: 0.5 mg Collagenase (Santyl) 0 gm TOP DAILY [facility] Last Admin: 09/13/18 10:35 Dose: 1 appl Ergocalciferol (Drisdol 50,000 Intl Units Cap) 1 cap PO Q7D [facility] Last Admin: 09/09/18 15:56 Dose: 1 cap Folic Acid (Folic Acid) 1 mg PO DAILY [facility] Last Admin: 09/13/18 10:31 Dose: 1 mg Furosemide (Lasix) 60 mg IVP Q12 [facility] Last Admin: 09/13/18 22:29 Dose: 60 mg NOREPINEPHRINE BIT/0.9 % NACL (Levophed 4 Mg/ 250 Ml Ns Premixed) 4 mg in 250 mls @ 15 mls/hr IV .[id number] PRN; Protocol PRN Reason: TITRATE PER MD ORDER Last Titration: 09/14/18 07:24 Dose: 2 mcg/min, 7.5 mls/hr Fentanyl Citrate (Fentanyl Citrate/Sodium Chloride 1 Mg/100 Ml) 1,000 mcg in 100 mls @ 2 mls/hr IV .Q24H PRN; Protocol PRN Reason: TITRATE PER MD ORDER Last Admin: 09/14/18 09:44 Dose: 200 mcg/hr, 20 mls/hr Dobutamine HCl/Dextrose (Dobutamine/Dextrose 5% 500mg/250ml) 500 mg in 250 mls @ 10.274 mls/hr IV .Q24H PRN; Protocol PRN Reason: TITRATE PER PROTOCOL Last Admin: 09/13/18 10:32 Dose: 5 mcg/kg/min, 10.274 mls/hr Dexmedetomidine HCl (Precedex 400mcg/100ml) 400 mcg in 100 mls @ 3.425 mls/hr IV .Q24H PRN; Protocol PRN Reason: Agitation Last Admin: 09/14/18 12:31 Dose: 1.5 mcg/kg/hr, 25.685 mls/hr Micafungin Sodium 100 mg/ (Sodium Chloride) 100 mls @ 100 mls/hr IV DAILY [facility]; Protocol Stop: 09/20/18 14:46 Last Admin: 09/13/18 15:20 Dose: 100 mls/hr Levalbuterol HCl (Xopenex) 0.63 mg IH [id number] [facility] Last Admin: 09/14/18 13:13 Dose: 0.63 mg Methylprednisolone (Solu-Medrol) 20 mg IVP Q12 [facility] Last Admin: 09/13/18 22:32 Dose: 20 mg Midodrine (Proamatine) 7.5 mg PO TID [facility] Last Admin: 09/13/18 18:39 Dose: 7.5 mg Multi-Ingredient Ointment (Hydrophor Oint) 0 gm TOP Q6H [facility] Last Admin: 09/14/18 02:45 Dose: 1 dose Nicotine (Nicoderm Cq) 1 patch TD DAILY [facility] Last Admin: 09/13/18 10:33 Dose: 1 patch Nystatin (Mycostatin Cream) 0 ea TOP TID [facility] Last Admin: 09/13/18 18:33 Dose: 1 cre Ondansetron HCl (Zofran Inj) 4 mg IVP Q4H PRN PRN Reason: Nausea/Vomiting Pantoprazole Sodium (Protonix Inj) 40 mg IVP DAILY [facility] Last Admin: 09/13/18 10:28 Dose: 40 mg Polyethylene Glycol (Miralax) 17 gm PO DAILY [facility] Last Admin: 09/13/18 10:31 Dose: 17 gm Sodium Hypochlorite (Dakins Solution 0.25%) 0 ml TOP DAILY [facility] Last Admin: 09/12/18 09:31 Dose: 1 applic - Labs Labs: 09/14/18 07:30 09/14/18 07:30 PT 12.5 SECONDS (9.4-12.5) 09/14/18 07:30 INR 1.11 09/14/18 07:30 APTT 23.0 Seconds (26.9-38.3) L 09/10/18 10:20 Attending/Attestation - Attestation I have personally seen and examined this patient.: Yes I have fully participated in the care of the patient.: Yes I have reviewed all pertinent clinical information, including history, physical exam and plan: Yes
--- NOTE | 2018-09-11 10:59 | PN ---
DATE: 09/11/2018 LOCATION: The patient is in the Critical Care Unit, room 128, bed 4. SUBJECTIVE: The patient has been intubated for more than a week due to respiratory distress. The patient has history of chronic lung disease. The patient also has history of pneumonia, collapse of the left lung, and pleural effusion. The patient has also history of infection of both legs with ulceration. He has been evaluated for possible transfer to long-term care facility. Prior to the patient being dispatched to other facility, the patient probably needs to have tracheostomy made, so that the patient's respiratory status could be stabilized and treatment could be provided more easily. The patient is seen this morning. He is conscious, but responds only by nodding. The patient manifests distress due to the presence of endotracheal tube, nasogastric tube; and the patient is frustrated with these entities in his throat. PHYSICAL EXAMINATION: VITAL SIGNS: The patient's pulse is 91, blood pressure 145/60, respirations are maintained by the respirator. The patient's O2 saturation is 91% on 60% of oxygen. LUNGS: The patient's lungs have bilateral crepitations scattered. The patient had diminished breath sounds on the left side of the chest and also right side of the lower part of the chest. HEART: Sinus tachycardia. ABDOMEN: Soft. There are no tenderness or masses. CENTRAL NERVOUS SYSTEM: He is conscious. He does move his legs, but mostly keeps them at rest in a rested position. MEDICATIONS: Consists of vitamin D. The patient is on fentanyl. The patient is on folic acid, heparin subacute for prophylaxis. The patient is on Levophed for maintenance of blood pressure and metoprolol 5 mg IV every 6 hours for tachycardia. The patient is also placed on antibiotic meropenem every 12 hours. The patient is on morphine sulfate for pain. The patient is on nicotine patch. The patient is on pantoprazole for gastritis and prevention of peptic ulcer disease. The patient is on Pulmicort and levalbuterol for respiratory management. ASSESSMENT AND PLAN: The patient's overall condition seemed to be critical state and his prognosis is guarded. We agree with the plan to send the patient to a long-term care facility. Family has to be consulted and notified. The patient probably as mentioned needs tracheotomy before the dispatch. We will provide the necessary care for the patient as possible in the institution currently. I discussed the case with Dr. Mike Mahmood, he is a plastics spreading machine operator on the case and he said he will take care of the procedure for the tracheotomy. Donovan Aleman MD [facility]
--- NOTE | 2018-09-11 11:54 | CP.PCM.PCO ---
Physician Communication Note - Physician Communication Note Physician Communication Note: Debrided - no bleeding
--- NOTE | 2018-09-11 12:36 | PN ---
DATE: 09/11/2018 SUBJECTIVE: The patient is sedated on the ventilator with FIO2 of 70%. The patient is on fentanyl as well as Levophed to support his blood pressure. As per Dr. Mahmood increased his FIO2 to 70% this morning to maintain good O2 saturation. PHYSICAL EXAMINATION: VITAL SIGNS: His temperature is 98.1, pulse is 82, respirations are 20 and his BP is 95/53. SKIN: Warm and dry. HEENT: Head is atraumatic and normocephalic. Eyes; reactive to light. Ears, nose, and throat; seemed to be within normal limits. NECK: Supple. No JVD. No thyroid enlargement or lymph nodes. HEART: Regular rate and rhythm. Normal S1, S2. LUNGS: Reveal bilateral rhonchi. ABDOMEN: Soft. Decreased bowel sounds. GENITALIA: Deferred. RECTAL: Deferred. MUSCULOSKELETAL: No joint deformities. EXTREMITIES: Reveal left lower extremity wounds. NEUROLOGIC: The patient is sedated on the ventilator. LABORATORY DATA: His white count is 11.4, hemoglobin is 9.6 and hematocrit 32.9 with platelets of 58,000. The patient's arterial blood gas reveals a pH of 7.37, pCO2 of 53, pO2 of 60. His sodium is 143, potassium 4.0, chloride 112, 112, CO2 of 32 with a BUN of 83, creatinine of 1.4 and a glucose of 130. IMPRESSION: This patient has respiratory failure requiring ventilator support with FIO2 of 70%. He has septic shock with hypotension requiring Levophed support. The patient has pneumonia and bilateral pleural effusions. He has a history of chronic back pain and is noted to have acute renal failure, left lower extremity wounds that are growing out methicillin-resistant Staphylococcus aureus, anemia, thrombocytopenia, and decubiti. PLAN: We will continue with ventilator support and decrease the FIO2 as tolerated. Continue to follow the arterial blood gas and chest x-ray closely and continue to give aggressive pulmonary toilet. The patient is getting fentanyl, as well as Lopressor, meropenem, morphine p.r.n., Levophed, Protonix, Pulmicort and Xopenex. We will continue to treat aggressively along with the other consultants and the primary care doctor. Gonzalo Woods MD
--- NOTE | 2018-09-11 13:36 | PN ---
DATE: 09/11/2018 SUBJECTIVE: The patient is seen earlier today in ICU , bed 4. The patient's case discussed with nursing staff who was here for the patient last night. The patient was seen earlier this morning, the patient had been afebrile and on BIPAP. No new chills reported. OBJECTIVE: VITAL SIGNS: On exam, temperature is 98, blood pressure is 83/48, respiratory rate of 18, heart rate of 86. HEENT: Unremarkable. NECK: Supple. LUNGS: Have decreased breath sounds. HEART: Normal S1 and S2. ABDOMEN: Soft and nontender. LABORATORY DATA: Reveals a white count of 11,400, hemoglobin of 9, platelets of 58. Chemistries are noted. Creatinine is 1.4, slight improvement and the patient's last procalcitonin is 0.61. Urinalysis is noted and pleural fluid evaluation from the is reviewed. Serology is noted. Influenza is negative. Microbiology reveals bronchial washing for Aimee tropicalis. Stool for C. Diff antigen from the has been negative and toxin is negative. Chest x-ray, there is no change in nodular airspace disease in the right lung and more confluent airspace disease in the right lower lobe, bilateral effusions. Review of orders reveals the patient to be on meropenem, intermittent vancomycin. Dr. Mahmood's note from today is reviewed. Dr. Mahmood states the patient remains on the vent, awake and alert and the patient has respiratory failure, atelectasis of the left lung, congestive heart failure, bilateral effusions, right lung infiltrate. Dr. Liu's assessment is reviewed. Dr. Perez's procedure note is reviewed. . ASSESSMENT AND PLAN: This is a 68-year-old male seen earlier this morning in bed 4 with severe sepsis, status post shock, ventilatory-dependent respiratory failure and acute renal failure with right healthcare-associated pneumonia, bilateral effusions, status post right-sided thoracentesis and a left hemothorax, hemithorax opacification, mucus plugging and was on Zyvox now with thrombocytopenia, on intermittent vancomycin and meropenem day #5, status post bronchoscopy with Aimee tropicalis were consistent with colonization and the vancomycin to cover possible methicillin-resistant Staphylococcus aureus of the foot. We will continue the present course. Follow closely with you. Roby MD [facility] # [id number]
--- NOTE | 2018-09-11 14:45 | PN ---
DATE: 09/11/2018 REASON FOR DICTATION: Covering Dr. Jero Salamanca. REASON FOR CONSULTATION: Cardiac evaluation, respiratory failure, intubated. SUBJECTIVE: The patient remains on the event, being sedated. PHYSICAL EXAMINATION GENERAL: On vent, sedated. VITAL SIGNS: Heart rate 68, blood pressure 83/48. HEENT: PERRLA. Extraocular muscles intact. NECK: Supple. No carotid bruit. No thyromegaly. CHEST: Clear to auscultation. HEART: S1 and S2, regular. ABDOMEN: Soft. EXTREMITIES: Clubbing and cyanosis, negative. LABORATORY DATA: WBC 11.4, hemoglobin 9.6, hematocrit 32.9, platelet count 58. Chemistry shows sodium 143, potassium 4, chloride 112, carbon dioxide 32, anion gap of 6, BUN 83, creatinine 1.4. IMPRESSION: A 68-year-old male with past medical history significant of chronic obstructive pulmonary disease, congestive heart failure, bilateral pleural effusion, status post thoracentesis, admitted with multilobar pneumonia, hypotension, renal insufficiency, intubated respiratory failure. RECOMMENDATIONS: Continue broad spectrum antibiotic. Continue Levophed. Monitor Is and Os, vent management and continue NG feeding. We will follow with you and transfer the care on Thursday to Dr. Salamanca. Thank you for providing us the opportunity in taking care of the patient, Ju Arroyo. Rocco Ac MD
--- NOTE | 2018-09-11 18:15 | CARD ---
APPROVED REPORT Date of service: 09/11/2018 EKG Measurement Heart [id number] <Conclusion> Sinus tachycardiia Right bundle branch block NDSTT abnormalities Abnormal ECG
[2018-09-12] MEDS: Levalbuterol 0.63 MG/3 ML Inhal Soln UD IH SCH ×4 (01:04→20:01)
[2018-09-12] MEDS: Fentanyl 1000mcg/100ml NS 1,000 MCG/100 ML BAG IV PRN ×4 (01:28→19:44)
[2018-09-12] MEDS: Dexmedetomidine 400mcg/100mL 400 MCG/100 ML BOTTLE IV PRN ×7 (03:11→22:48)
[2018-09-12] MEDS: Metoprolol 1 mg/ml Inj IVP SCH ×4 (03:29→17:15)
[2018-09-12 05:42] LABS: ARTERIAL BLOOD GAS HCO3 31.3 mmol/L (21-28); ARTERIAL BLOOD GAS HEMOGLOBIN 9.6 g/dL (11.7-17.4); ARTERIAL BLOOD GAS O2 CAPACITY 13.1 mL/dl (16-24); ARTERIAL BLOOD GAS O2 CONTENT 12.2 ML/dl (15-23); ARTERIAL BLOOD GAS O2 SAT 92.9 % (95-98); ARTERIAL BLOOD GAS PCO2 58 mm/Hg (35-45); ARTERIAL BLOOD GAS PH 7.34 (7.35-7.45); ARTERIAL BLOOD GAS TCO2 33.1 mmol.L (22-28)
[2018-09-12 06:56] LABS: ALB/GLOB RATIO 0.7 (1.1-1.8); ALBUMIN 2.1 g/dL (3.0-4.8); ALT/SGPT 20 U/L (7-56); AST/SGOT 31 U/L (17-59); BILIRUBIN,DIRECT 0.3 mg/dL (0.0-0.4); BLOOD UREA NITROGEN 84 mg/dL (7-21); GFR NON-AFRICAN AMERICAN 50
[2018-09-12 07:03] LABS: B-TYPE NATRIURETIC PEPTIDE 4540 pg/mL (0-450)
[2018-09-12 07:04] LABS: BASO # 0.08 K/mm3 (0.0-2.0); BASO % 0.5 % (0.0-3.0); EOS # 2.9 (0.0-0.7); LYMPH # 1.5 (1.2-3.4); LYMPH % 10.3 % (22.0-35.0); MEAN CORPUSCULAR HEMOGLOBIN 26.8 pg (25.0-35.0); MEAN CORPUSCULAR HGB CONC 28.5 g/dl (31.0-37.0); MEAN PLATELET VOLUME 11.1 fl (7.0-11.0); MONO # 0.8 (0.1-0.6); MONO % 5.1 % (1.0-6.0); RBC 3.36 10^6/uL (3.5-6.1); RED CELL DISTRIBUTION WIDTH 16.3 % (11.5-14.5); WHITE BLOOD COUNT 14.9 10^3/uL (4.5-11.0)
[2018-09-12] MEDS: Budesonide 0.5 mg/2 ml Inhal Susp UD IH SCH ×2 (08:30→20:02)
[2018-09-12] MEDS: MEROPENEM 500 MG in NS 500 MG/50 ML BAG IVPB SCH ×2 (09:22→21:23)
[2018-09-12 09:23] LABS: EOS % 19.6 % (1.5-5.0)
[2018-09-12] MEDS: POLYETHYLENE GLYCOL 3350 17 GM/Dose PACKET PO SCH (09:23)
[2018-09-12] MEDS: Nystatin 100,000 Units/gm Cream(15 gm) TOP SCH ×2 (09:28→14:39)
[2018-09-12] MEDS: Collagenase 250 Units/gm Ointment(30 gm) TOP SCH (09:29)
[2018-09-12] MEDS: Ammonium Lactate 12% Cream (140 g) TOP SCH (09:31)
[2018-09-12] MEDS: Dakin's Topical 0.25%-Half Strength (480 ml) TOP SCH (09:31)
--- NOTE | 2018-09-12 10:57 | PN ---
DATE: 09/12/2018(700am-750am) PULMONARY NOTE SUBJECTIVE: The patient remains on the ventilator. He is awake and alert. He appears comfortable this morning. PHYSICAL EXAMINATION: VITAL SIGNS: Temperature is 98.4, pulse is 80, respiratory rate 22/20, blood pressure 132/57. HEENT: Normocephalic, atraumatic. No JVD. CARDIOVASCULAR: Systolic ejection murmur at the lower left sternal border. Positive S3 gallop. LUNGS: Decreased breath sounds at the bases with crackles. Less rhonchi. No wheezing. GI: Abdomen is soft, nontender and nondistended. Bowel sounds are positive. EXTREMITIES: Mild edema. No cyanosis, no clubbing. Calves are nontender to palpation. SKIN: Positive decubitus ulcers. Positive bilateral lower extremity ulcers. No rashes. NEUROLOGIC: Exam limited at the present time. PERTINENT LABORATORY DATA: Chest x-ray was done this morning and reviewed. There remains a significant infiltrate noted in the right chest. The left chest looks improved. Arterial blood gas was done on PRVC 20, tidal volume 400, FIO2 70% and 10 of PEEP. Results are: PH 7.34, pCO2 58, pO2 of 60. IMPRESSION: 1. Respiratory failure. 2. Recurrent atelectasis - left lung. 3. Congestive heart failure. 4. Bilateral pleural effusions. 5. Diffuse right lung infiltrate. 6. Chronic obstructive pulmonary disease. 7. Renal insufficiency. PLAN: The patient remains intubated. He is awake and alert. He does appear comfortable on the ventilator. I did discuss the case with the night nurse at length. The night nurse stated the patient had an uneventful night. I did review the chest x-ray from this morning. Official results are pending. Unfortunately, the right lung remains with a significant infiltrate. However, the left lung appears to be clearing. I have also reviewed the arterial blood gas. The arterial blood gas remains with a mild respiratory acidosis and a significant increase in the alveolar-arterial gradient. I will increase the FIO2 this morning. I did discuss the orders with the respiratory team. I would continue with the antibiotic coverage as per Infectious Disease. Temperatures have resolved, However, there is a mild leukocytosis on laboratory exam this morning. The patient remains critical ill with very guarded/poor prognosis. As above, his arterial blood gases continue to worsen. He will most likely need a tracheostomy, and possible transfer to an LTAC facility. I will discuss the above with the entire ICU team in the next few moments. I will discuss the above with the attending physician later this morning. Mike Mahmood MD [facility]
--- NOTE | 2018-09-12 11:02 | RAD ---
Date of service: 09/12/2018 HISTORY: f/u COMPARISON: 09/11/2018 FINDINGS: The right IJV line terminates at the cavoatrial junction. The nasogastric tube terminates in the distal esophagus. LUNGS: The lungs are well inflated. There is little interval change in severe pulmonary venous congestion and interstitial pulmonary edema with presumable alveolar pulmonary edema in the perihilar regions and lower lobes. PLEURA: Worsening pleural effusions, larger on the right. CARDIOVASCULAR: Stable cardiomegaly. There are aortic atherosclerotic calcifications present. OSSEOUS STRUCTURES: Within normal limits for the patient's age. VISUALIZED UPPER ABDOMEN: Normal. OTHER FINDINGS: None. IMPRESSION: Worsening congestive heart failure with interval development of pulmonary edema and worsening pleural effusions, worse on the right. Nasogastric tube terminates in the distal esophagus. Repositioning is recommended.
--- NOTE | 2018-09-12 11:11 | PN ---
DATE: 09/12/2018 LOCATION: The patient is in the Intensive Care Unit, Critical Care Unit room 128, bed 4. SUBJECTIVE: The patient was admitted with respiratory failure. The patient is intubated. The patient has history of pneumonia, collapsed of left lung, pneumonia of the right lung, pleural effusions in both chest. The patient has history of infection of his legs. The patient is seen this morning, he is awake, disgusted. The patient pointing towards apparatus in the mouth and the nose and he wants them removed . PHYSICAL EXAMINATION: VITAL SIGNS: His pulse is 95 and blood pressure 114/57. He is on oxygen, breathing by respiratory. His O2 stat is 96%. He is on very high concentration oxygen at this time. The patient is sedated. MEDICATIONS: His medications consists of sodium hypochlorite solution through his nose. The patient is getting Drisdol which is vitamin D every 7 day, the patient gets Dulcolax for constipation. The patient is on fentanyl. The patient is on heparin subcutaneous for prophylaxis. The patient is on Lasix IV every 12 hours. The patient is on Levophed for maintenance of blood pressure. The patient is on metoprolol also every 6 hours to maintain heart rate. The patient is on meropenem as antibiotic. The patient is on morphine for pain. Nystatin cream for skin infection and fungal infection. Nicotine patch. The patient is also on Precedex. He is on respiratory to keep him calm. He also gets pantoprazole 40 mg IV daily and Pulmicort every 12 hours. The patient gets levalbuterol every 6 hours for chronic obstructive lung disease. LABORATORY DATA: The patient's lab work done today, the patient white count is 14,900, the deferential shows that he has 64% neutrophils, hemoglobin 9.0 it is dropping from 10.5. The patient's chemistry; his last BUN is 84 and creatinine 1.4. The patient is on glucose monitor. His blood sugar is 162. His liver enzymes happened to be within normal range. His condition is critical. The patient is being evaluated for long-term care facility. At that movement, the patient is waiting to have tracheotomy done and may be the patient might been feeding tube if the process continues. We will followup and do what his best from the patient and we will discussed the case with the family, has advised the patient's family, has to have discussing to the critical care unit physician and the certified medical coder at this time. Donovan Aleman MD
--- NOTE | 2018-09-12 12:01 | CP.PCM.PN ---
<Kishor Liu - Last Filed: 09/12/18 11:59> Subjective - Date & Time of Evaluation Date of Evaluation: 09/12/18 Time of Evaluation: 11:59 - Subjective Subjective: Podiatry progress note: Dr. Lloyd 68 y/o M patient seen and evaluated in ICU for b/l ulcerations. Patient responsive to pain. As per patient charts, no acute overnight events. Patient didn't have overnight F/N/V or C. Objective - Vital Signs/Intake and Output Vital Signs (last 24 hours): Temp Pulse Resp BP Pulse Ox 98.1 F 97 H 24 152/72 H 92 L 09/10/18 16:00 09/12/18 11:00 09/12/18 05:42 09/12/18 11:00 09/12/18 11:00 Intake and Output: 09/12/18 09/12/18 06:59 18:59 Intake Total 2510 100 Output Total 500 Balance 2009 100 - Medications Medications: Current Medications Acetaminophen (Tylenol 325mg Tab) 650 mg PO Q6 PRN PRN Reason: TEMP>=99.5F Last Admin: 09/03/18 13:54 Dose: 650 mg Bisacodyl (Dulcolax) 10 mg RC HS PRN PRN Reason: Constipation Budesonide (Pulmicort Respules) 0.5 mg IH [id number] [facility], [facility] Last Admin: 09/12/18 08:30 Dose: 0.5 mg Collagenase (Santyl) 0 gm TOP DAILY [facility], [facility] Last Admin: 09/12/18 09:29 Dose: 1 appl Ergocalciferol (Drisdol 50,000 Intl Units Cap) 1 cap PO Q7D [facility], [facility] Last Admin: 09/09/18 15:56 Dose: 1 cap Folic Acid (Folic Acid) 1 mg PO DAILY [facility], [facility] Last Admin: 09/12/18 09:23 Dose: 1 mg Furosemide (Lasix) 60 mg IVP Q12 [facility], [facility] Last Admin: 09/09/18 23:28 Dose: 60 mg Heparin Sodium (Porcine) (Heparin) 5,000 units SC Q8 [facility], [facility]; Protocol Last Admin: 09/09/18 05:30 Dose: 5,000 units Dexmedetomidine HCl (Precedex 400mcg/100ml) 400 mcg in 100 mls @ 3.856 mls/hr IV .Q24H PRN; Protocol PRN Reason: Sedation Last Admin: 09/12/18 09:22 Dose: 1.5 mcg/kg/hr, 28.917 mls/hr Meropenem/Sodium Chloride (Merrem Iv 500 Mg/Ns 50 Ml) 500 mg in 50 mls @ 100 m ls/hr IVPB Q12 [facility]; Protocol Stop: 09/13/18 22:01 Last Admin: 09/12/18 09:22 Dose: 100 mls/hr NOREPINEPHRINE BIT/0.9 % NACL (Levophed 4 Mg/ 250 Ml Ns Premixed) 4 mg in 250 mls @ 15 mls/hr IV .[id number] PRN; Protocol PRN Reason: TITRATE PER MD ORDER Last Admin: 09/11/18 20:23 Dose: 4 mcg/min, 15 mls/hr Fentanyl Citrate (Fentanyl Citrate/Sodium Chloride 1 Mg/100 Ml) 1,000 mcg in 100 mls @ 2 mls/hr IV .Q24H PRN; Protocol PRN Reason: TITRATE PER MD ORDER Last Admin: 09/12/18 06:51 Dose: 160 mcg/hr, 16 mls/hr Levalbuterol HCl (Xopenex) 0.63 mg IH [id number] [facility] Last Admin: 09/12/18 08:30 Dose: 0.63 mg Metoprolol Tartrate (Lopressor) 5 mg IVP Q6 [facility] Last Admin: 09/12/18 06:49 Dose: Not Given Nicotine (Nicoderm Cq) 1 patch TD DAILY [facility], [facility] Last Admin: 09/12/18 09:23 Dose: 1 patch Nystatin (Mycostatin Cream) 0 ea TOP TID [facility] Last Admin: 09/12/18 09:28 Dose: 1 cre Ondansetron HCl (Zofran Inj) 4 mg IVP Q4H PRN PRN Reason: Nausea/Vomiting Pantoprazole Sodium (Protonix Inj) 40 mg IVP DAILY [facility], [facility] Last Admin: 09/12/18 09:23 Dose: 40 mg Polyethylene Glycol (Miralax) 17 gm PO DAILY [facility] Last Admin: 09/12/18 09:23 Dose: 17 gm Sodium Hypochlorite (Dakins Solution 0.25%) 0 ml TOP DAILY [facility], [facility]1983 Last Admin: 09/12/18 09:31 Dose: 1 applic - Labs Labs: 09/12/18 06:30 09/12/18 06:30 PT 12.8 SECONDS (9.4-12.5) H 09/10/18 10:20 INR 1.13 09/10/18 10:20 APTT 23.0 Seconds (26.9-38.3) L 09/10/18 10:20 - Constitutional Appears: Well, Non-toxic, No Acute Distress - Head Exam Head Exam: ATRAUMATIC, NORMOCEPHALIC - Extremities Exam Additional comments: B/L lE focused exam: VASC: DP/PT non-palpable, Temp gradient warm to warm bilaterally, Lymphedema noted bilaterally (improving), non-pitting. Cap refill < 3 sec to all digits. NEURO: grossly intact b/l. DERM: LEFT- 0.4 cm X 0.4 cm wound noted to submetatarsal 1 head, significantly improving, fibrotic base, no drainage, no tunneling, tracking or probe to bone, no malodor, multiple superficial wounds noted to the lateral aspect of the left ankle with 100% granular skin base, no drainage, no probe to bone, no tunneling or tracking, no malodor, chronic skin trophic changes secondary to long standing peripheral vascular disease, no signs of infection noted clinically. Improving. RIGHT- Superficial wound noted to the lateral aspect of the leg at the site of previous chronic skin trophic changes secondary to long standing peripheral vascular disease, wound base 100% granular, Mild sanguineous drainage, mild malodor, no tunneling, tracking or probe to bone. Improving. MSK: Muscle power and pain level couldn't be assessed as patient is sedated, intubated and ventilated. - Neurological Exam Neurological Exam: Alert, Awake - Psychiatric Exam Psychiatric exam: Normal Affect, Normal Mood Assessment and Plan - Assessment and Plan (Free Text) Assessment: 68 y/o male patient with bilateral lower extremity wounds, significantly improving Plan: Patient seen and evaluated Chars, Labs and vitals reviewed; Afebrile, WBC 11.4 Bilateral foot x-ray ordered; No evidence of OM Patient refused CT and MRI before. ID on board Reccs appreciated. continue IV as per ID Left foot wound cultures: MRSA, Morg morgnanii Wounds cleansed with saline, dressed with bactroban, adaptic, ABD DSD Continue wearing Multipodus boots No podiatric intervention planned at this time, in our clinical judgement no bridgett dence of OM, however, cannot be confirmed as patient has refused both MRI/CT Patient likely to be transferred to a senior care care facility Podiatry will continue to follow up the patient while in house <Kvng Lloyd - Last Filed: 09/14/18 13:12> Objective - Vital Signs/Intake and Output Vital Signs (last 24 hours): Temp Pulse Resp BP Pulse Ox 97.4 F L 58 L 21 110/47 L 96 09/14/18 05:00 09/14/18 08:00 09/14/18 07:35 09/14/18 08:00 09/14/18 08:00 Intake and Output: 09/14/18 09/14/18 06:59 18:59 Intake Total 1490 275 Output Total 800 Balance 690 275 - Medications Medications: Current Medications Acetaminophen (Tylenol 325mg Tab) 650 mg PO Q6 PRN PRN Reason: TEMP>=99.5F Last Admin: 09/03/18 13:54 Dose: 650 mg Budesonide (Pulmicort Respules) 0.5 mg IH [id number] [facility], [facility] Last Admin: 09/14/18 07:28 Dose: 0.5 mg Collagenase (Santyl) 0 gm TOP DAILY [facility], [facility] Last Admin: 09/13/18 10:35 Dose: 1 appl Ergocalciferol (Drisdol 50,000 Intl Units Cap) 1 cap PO Q7D [facility] Last Admin: 09/09/18 15:56 Dose: 1 cap Folic Acid (Folic Acid) 1 mg PO DAILY [facility] Last Admin: 09/13/18 10:31 Dose: 1 mg Furosemide (Lasix) 60 mg IVP Q12 [facility] Last Admin: 09/13/18 22:29 Dose: 60 mg NOREPINEPHRINE BIT/0.9 % NACL (Levophed 4 Mg/ 250 Ml Ns Premixed) 4 mg in 250 mls @ 15 mls/hr IV .[id number] PRN; Protocol PRN Reason: TITRATE PER MD ORDER Last Titration: 09/14/18 07:24 Dose: 2 mcg/min, 7.5 mls/hr Fentanyl Citrate (Fentanyl Citrate/Sodium Chloride 1 Mg/100 Ml) 1,000 mcg in 100 mls @ 2 mls/hr IV .Q24H PRN; Protocol PRN Reason: TITRATE PER MD ORDER Last Admin: 09/14/18 09:44 Dose: 200 mcg/hr, 20 mls/hr Dobutamine HCl/Dextrose (Dobutamine/Dextrose 5% 500mg/250ml) 500 mg in 250 mls @ 10.274 mls/hr IV .Q24H PRN; Protocol PRN Reason: TITRATE PER PROTOCOL Last Admin: 09/13/18 10:32 Dose: 5 mcg/kg/min, 10.274 mls/hr Dexmedetomidine HCl (Precedex 400mcg/100ml) 400 mcg in 100 mls @ 3.425 mls/hr IV .Q24H PRN; Protocol PRN Reason: Agitation Last Admin: 09/14/18 12:31 Dose: 1.5 mcg/kg/hr, 25.685 mls/hr Micafungin Sodium 100 mg/ (Sodium Chloride) 100 mls @ 100 mls/hr IV DAILY [facility], [facility]; Protocol Stop: 09/20/18 14:46 Last Admin: 09/13/18 15:20 Dose: 100 mls/hr Levalbuterol HCl (Xopenex) 0.63 mg IH [id number] [facility], [facility] Last Admin: 09/14/18 07:28 Dose: 0.63 mg Methylprednisolone (Solu-Medrol) 20 mg IVP Q12 [facility] Last Admin: 09/13/18 22:32 Dose: 20 mg Midodrine (Proamatine) 7.5 mg PO TID [facility] Last Admin: 09/13/18 18:39 Dose: 7.5 mg Multi-Ingredient Ointment (Hydrophor Oint) 0 gm TOP Q6H [facility] Last Admin: 09/14/18 02:45 Dose: 1 dose Nicotine (Nicoderm Cq) 1 patch TD DAILY [facility] Last Admin: 09/13/18 10:33 Dose: 1 patch Nystatin (Mycostatin Cream) 0 ea TOP TID [facility] Last Admin: 09/13/18 18:33 Dose: 1 cre Ondansetron HCl (Zofran Inj) 4 mg IVP Q4H PRN PRN Reason: Nausea/Vomiting Pantoprazole Sodium (Protonix Inj) 40 mg IVP DAILY [facility] Last Admin: 09/13/18 10:28 Dose: 40 mg Polyethylene Glycol (Miralax) 17 gm PO DAILY [facility] Last Admin: 09/13/18 10:31 Dose: 17 gm Sodium Hypochlorite (Dakins Solution 0.25%) 0 ml TOP DAILY [facility] Last Admin: 09/12/18 09:31 Dose: 1 applic - Labs Labs: 09/14/18 07:30 09/14/18 07:30 PT 12.5 SECONDS (9.4-12.5) 09/14/18 07:30 INR 1.11 09/14/18 07:30 APTT 23.0 Seconds (26.9-38.3) L 09/10/18 10:20 Attending/Attestation - Attestation I have personally seen and examined this patient.: Yes I have fully participated in the care of the patient.: Yes I have reviewed all pertinent clinical information, including history, physical exam and plan: Yes
--- NOTE | 2018-09-12 12:13 | PN ---
DATE: 09/12/2018 SUBJECTIVE: The patient is mildly sedated on the ventilator with FIO2 of 80%. The patient is on fentanyl as well as Levophed. He has been complaining of some chest discomfort. EKG as well as troponins were done. EKG showed no significant change or and nothing that would account for the chest discomfort and the troponins were within normal limits. Patient is resting comfortably at this time with O2 sat of 96% and hemodynamically stable. PHYSICAL EXAMINATION: VITAL SIGNS: Temperature is 98.1, pulse is 95, respirations of 22 and BP is 114/57. SKIN: Warm and dry. HEENT: Head atraumatic, normocephalic. Eyes; reactive to light. Ears, nose, and throat seemed to be within normal limits. NECK: Supple. No JVD. No thyroid enlargement, no lymph nodes. HEART: Has regular rate and rhythm. Normal S1, S2. LUNGS: Reveal rhonchi bilaterally. ABDOMEN: Soft. Decreased bowel sounds. GENITALIA: Deferred. RECTAL: Deferred. MUSCULOSKELETAL: No joint deformities. EXTREMITIES: Reveal positive edema. NEUROLOGIC: The patient is moving all extremities, but he is on ventilator support. LABORATORY DATA: His white count is 14.9, hemoglobin is 9.0, hematocrit 31.6 with platelets of 61,000. Arterial blood gas reveals a pH of 7.34, pCO2 of 58, pO2 of 60. His sodium is 147, potassium 4.5, chloride 114, CO2 of 34 with a BUN of 84, creatinine of 1.4 and a glucose of 162. Chest x-ray reveals bilateral infiltrative processes with bilateral pleural effusion, that is unofficial reading. IMPRESSION: The patient has respiratory failure requiring ventilator support and FIO2 of 80%. He has septic shock with hypotension requiring Levophed and the patient has pneumonia with bilateral pleural effusions. There is chronic back pain and acute renal failure, also lower extremity wounds with methicillin-resistant Staphylococcus aureus. The patient has anemia as well as thrombocytopenia and decubiti. PLAN: We will continue to decrease the FIO2 as tolerated. Continue with chest x-ray and arterial blood gas. Also continue with aggressive pulmonary toilet. The patient is getting Precedex as well as fentanyl, subcu heparin, folic acid, Lopressor, meropenem, MiraLax, Levophed, Protonix, Pulmicort, and Xopenex. We will continue to treat aggressively along with the other consultants and the primary care doctor. Gonzalo Woods MD
--- NOTE | 2018-09-12 13:01 | PN ---
DATE: 09/12/2018 REASON FOR DICTATION: Covering Dr. Jero Salamanca. REASON FOR CONSULTATION: Cardiac evaluation, respiratory failure, intubated. SUBJECTIVE: The patient remains on the vent, awake and alert. PHYSICAL EXAMINATION VITAL SIGNS: Temperature afebrile, heart rate 80, and blood pressure 114/57. HEENT: PERRLA. Extraocular muscles intact. NECK: Supple. No carotid bruit. No thyromegaly. CHEST: Clear to auscultation. HEART: S1 and S2 regular. ABDOMEN: Soft. EXTREMITIES: Clubbing and cyanosis negative. LABORATORY DATA: Blood workup as follows; WBC 14.9, hemoglobin 9, hematocrit 31.6, and platelet count 61. Chemistry shows sodium 147, potassium 4.5, chloride 114, carbon dioxide 30, anion gap of 4, BUN 18 and creatinine 1.4. IMPRESSION: A 68-year-old male with a past medical history significant chronic obstructive pulmonary disease, congestive heart failure, bilateral effusion, status post thoracentesis, admitted with multilobar pneumonia, hypotension, renal insufficiency, intubated. RECOMMENDATIONS: Continue broad spectrum antibiotic. Continue Levophed. Monitor Is and Os. Continuing NG feeding. We will transfer the care on Thursday to Dr. Salamanca. Thank you Dr. Hernandez, for providing us the opportunity in taking care of the patient, Cruz Dodd. Rocco Ac MD
--- NOTE | 2018-09-12 15:42 | CP.PCM.PCO ---
Physician Communication Note - Physician Communication Note Physician Communication Note: Will plan for Trach on Thursday, 09/14
--- NOTE | 2018-09-12 17:50 | PN ---
DATE: 09/12/2018 SUBJECTIVE: The patient seen in [facility], bed 4. The patient's condition is poor. He remains in the ICU. There have been no fevers. PHYSICAL EXAMINATION: VITAL SIGNS: Temperature is 98, blood pressure is 150/70, respiratory rate of 18, heart rate of 80. HEENT: Unremarkable. NECK: Supple. LUNGS: Have decreased breath sounds. HEART: Normal S1, S2. ABDOMEN: Soft, nontender. LABORATORY DATA: Reveals a white count is up to 14,900, hemoglobin of 9, platelets of 61. Chemistries reveals a BUN of 84, creatinine of 1.4 and urinalysis is noted and thoracentesis fluid is reviewed. Serology is reviewed. Microbiology is reviewed. ASSESSMENT AND PLAN: This is a 68-year-old male who was seen earlier in the Intensive Care Unit with severe sepsis, status post shock, ventilatory-dependent respiratory failure, acute renal failure, right-sided healthcare-associated pneumonia, bilateral effusions, status post right-sided thoracentesis and left hemothorax and with hemithorax, mucus plugging, on intermittent vancomycin and meropenem day #6. Dr. Mahmood note is reviewed from today. note is reviewed. The patient remains on a ventilator and respiratory failure; intubated. The patient also had a chest x-ray this morning which is reviewed by Dr. Mahmood consistent worsening congestive heart failure, interval development pulmonary edema as per radiologist who has read the chest x-ray. Overall prognosis is poor Roby Siegel MD
[2018-09-13] MEDS: NOREPINEPHRINE BIT/0.9 % NACL 4 MG/250 ML BAG IV PRN (00:35)
[2018-09-13] MEDS: Fentanyl 1000mcg/100ml NS 1,000 MCG/100 ML BAG IV PRN ×4 (00:49→18:29)
[2018-09-13] MEDS: Levalbuterol 0.63 MG/3 ML Inhal Soln UD IH SCH ×4 (01:13→19:52)
[2018-09-13] MEDS: Dexmedetomidine 400mcg/100mL 400 MCG/100 ML BOTTLE IV PRN ×6 (02:32→21:19)
[2018-09-13] MEDS: Metoprolol 1 mg/ml Inj IVP SCH ×4 (02:40→18:37)
[2018-09-13 05:40] LABS: ARTERIAL BLOOD GAS HCO3 34.1 mmol/L (21-28); ARTERIAL BLOOD GAS HEMOGLOBIN 8.8 g/dL (11.7-17.4); ARTERIAL BLOOD GAS O2 CONTENT 11.2 ML/dl (15-23); ARTERIAL BLOOD GAS O2 SAT 93.2 % (95-98); ARTERIAL BLOOD GAS PCO2 59 mm/Hg (35-45); ARTERIAL BLOOD GAS PH 7.37 (7.35-7.45); ARTERIAL BLOOD GAS TCO2 35.9 mmol.L (22-28)
[2018-09-13] MEDS ORDERED: Propofol 10 mg/ml 1,000 MG/100 ML VIAL IV PRN (07:11)
[2018-09-13 07:43] LABS: ALB/GLOB RATIO 0.7 (1.1-1.8); ALBUMIN 2.1 g/dL (3.0-4.8); ALT/SGPT 38 U/L (7-56); AST/SGOT 34 U/L (17-59); BLOOD UREA NITROGEN 104 mg/dL (7-21); CALCIUM 8.1 mg/dL (8.4-10.5); GFR NON-AFRICAN AMERICAN 50
[2018-09-13] MEDS: Budesonide 0.5 mg/2 ml Inhal Susp UD IH SCH ×2 (08:08→19:52)
[2018-09-13 08:10] LABS: BASO # 0.15 K/mm3 (0.0-2.0); BASO % 1.1 % (0.0-3.0); EOS # 2.2 (0.0-0.7); HEMOGLOBIN 8.9 g/dL (14.0-18.0); LYMPH # 1.1 (1.2-3.4); LYMPH % 7.9 % (22.0-35.0); MEAN CELL VOLUME 95.2 fl (80.0-105.0); MEAN CORPUSCULAR HEMOGLOBIN 26.9 pg (25.0-35.0); MEAN CORPUSCULAR HGB CONC 28.3 g/dl (31.0-37.0); MEAN PLATELET VOLUME 11.4 fl (7.0-11.0); MONO # 1.5 (0.1-0.6); MONO % 10.7 % (1.0-6.0); RBC 3.31 10^6/uL (3.5-6.1); RED CELL DISTRIBUTION WIDTH 16.5 % (11.5-14.5)
[2018-09-13] MEDS ORDERED: DOBUTamine 500mg/250ml D5W 500 MG/250 ML BAG IV PRN (09:46)
[2018-09-13] MEDS ORDERED: Vancomycin 1.5 GM in Sodium Chloride 0.9% 500 ML IVPB ONE (10:18)
[2018-09-13] MEDS: MethylPREDNISolone 40 mg Vial IVP SCH ×2 (10:26→22:32)
[2018-09-13] MEDS: POLYETHYLENE GLYCOL 3350 17 GM/Dose PACKET PO SCH (10:31)
[2018-09-13] MEDS: MEROPENEM 500 MG in NS 500 MG/50 ML BAG IVPB SCH ×2 (10:31→22:30)
[2018-09-13] MEDS: Collagenase 250 Units/gm Ointment(30 gm) TOP SCH (10:35)
[2018-09-13] MEDS: Nystatin 100,000 Units/gm Cream(15 gm) TOP SCH ×3 (10:35→18:33)
--- NOTE | 2018-09-13 11:32 | PN ---
DATE: 09/13/2018(640am-730am) SUBJECTIVE: The patient remains on the ventilator. He is awake and alert. PHYSICAL EXAMINATION: VITAL SIGNS: Temperature 98.4, pulse 85, respirations 22/20, blood pressure 130/55. HEENT: Normocephalic, atraumatic. NECK: No JVD. CARDIOVASCULAR: Systolic ejection murmur at the lower left sternal border. Positive S3 gallop. LUNGS: Decreased breath sounds at the bases with crackles. Mild bilateral rhonchi. No wheezing. EXTREMITIES: Mild edema. No cyanosis. No clubbing. Calves are nontender to palpation. GI: Abdomen is soft, nontender and nondistended. Bowel sounds are positive. SKIN: Positive decubitus ulcers. Positive bilateral lower extremity ulcers. No rashes. NEUROLOGIC: Exam limited at the present time. PERTINENT LABORATORY DATA: Chest x-ray was done this morning and reviewed. There are now bilateral pulmonary infiltrates - consistent with a pattern of pulmonary edema. There are also small bilateral pleural effusions. Official results are pending. Arterial blood gas was done on PRVC 20, tidal volume 400, FiO2 80%, PEEP of 10. Results are: PH 7.37, pCO2 of 59, pO2 of 56. IMPRESSION: 1. Respiratory failure. 2. Recurrent atelectasis - left lung. 3. Congestive heart failure. 4. Bilateral pleural effusions. 5. Diffuse right lung infiltrate. 6. Chronic obstructive pulmonary disease. 7. Renal insufficiency. PLAN: The patient remains intubated. He is awake and alert. He does appear comfortable on the ventilator. I did discuss the case with the night nurse at length. The night nurse stated the patient had an uneventful night, but is not doing well overall. I did review the chest x-ray from this morning. Findings are noted above. Official results are pending. Due to the pattern on x-ray, I will check a repeat B-type natriuretic peptide. The patient remains on intravenous Lasix. Input by Cardiology is noted. I have also reviewed the arterial blood gas. The arterial blood gas continues to worsen - with a significant rise in the alveolar-arterial gradient. I will discuss the arterial blood gas with the ICU team in the next few moments. I would continue with the antibiotic coverage as per Infectious Disease. Temperatures have resolved. Repeat a.m. labs are pending. Inputs by Surgery and Renal are also noted. I did meet with the surgical team yesterday. The patient is for probable tracheostomy in the very near future. The patient remains critically ill with very guarded/poor prognosis. I will discuss the above with the entire ICU team in the next few moments. I will also discuss the above with the attending physician later this morning. Mike Mahmood MD MTDD
--- NOTE | 2018-09-13 11:44 | RAD ---
Date of service: 09/13/2018 HISTORY: f/u COMPARISON: No prior. FINDINGS: ETT, tip of which lies approximately 5 cm above [place]. In situ feeding tube, the tip of which lies at/just below EG junction midline. Should be advanced. No change right IJ central line with tip in the SVC. LUNGS: PLEURA: Redemonstrated are pulmonary venous congestion with bilateral alveolar-type infiltrates and bilateral effusions CARDIOVASCULAR: Mild aortic atherosclerotic calcification present. Heart size difficult to assess due to silhouetting both cardiac borders. No pulmonary vascular congestion. OSSEOUS STRUCTURES: No significant abnormalities. VISUALIZED UPPER ABDOMEN: Normal. OTHER FINDINGS: None. IMPRESSION: Redemonstrated are pulmonary venous congestion with bilateral alveolar-type infiltrates and bilateral effusions
--- NOTE | 2018-09-13 13:26 | CP.CCUPN ---
<Augusto Zimmerman - Last Filed: 09/13/18 17:27> CCU Subjective - Physician Review Subjective (Free Text): 09/13/18 13:21 Augusto Zimmerman, PGY-1 ICU Progress Note: Pt was seen and examined this AM by ICU team. Overnight the pt had no acute issues. Pt is on ventilator due to bronch 07/07. Today pt will remain intubated due to persistent CXR findings, will continue to monitor and attempt to wean when appropriate. ROS limited due to pt being intubated and sedated. Pt is planned for trach tomorrow. CCU Objective - Vital Signs / Intake & Output Vital Signs (Last 4 hours): Vital Signs BP 09/13/18 10:32 135/62 09/13/18 10:25 135/62 Intake and Output (Last 8hrs): Intake & Output 09/12/18 09/13/18 09/13/18 22:59 06:59 14:59 Intake Total 2212 2322 255 Output Total 850 350 Balance 1362 1972 255 Intake: IV 1172 1482 255 FENTANYL 192 192 LEVOPHED 120 180 antibiotic 100 100 precedex 360 360 Tube Feeding 1040 840 Output: Urine 850 350 Urethral (Abrams) 850 350 Emesis 0 Other: # Bowel Movements 0 - Physical Exam Head: Positive for: Atraumatic, Normocephalic Pupils: Positive for: PERRL Extroacular Muscles: Positive for: EOMI Conjunctiva: Positive for: Normal Mouth: Positive for: Moist Mucous Membranes Neck: Positive for: Normal Range of Motion Respiratory/Chest: Positive for: Decreased Breath Sounds (worse on R than L), Other (Pt is intubated and ETT in place.). Negative for: Respiratory Distress, Accessory Muscle Use, Wheezes, Rales, Rhonchi Cardiovascular: Positive for: Regular Rate and Rhythm, Normal S1, S2. Negative for: Murmurs Abdomen: Positive for: Normal Bowel Sounds. Negative for: Tenderness, Distention, Peritoneal Signs Back: Positive for: Decubitus Ulcer (Sacral) Upper Extremity: Positive for: Normal Inspection. Negative for: Cyanosis, Edema Lower Extremity: Positive for: Normal Inspection, Normal ROM, Other (2 large skin decubiti on the posterior thighs bilaterally, both infected with surrounding erythema) Neurological: Positive for: Other (Pt is intubated and sedated) Skin: Positive for: Warm, Dry, Normal Color. Negative for: Rashes Psychiatric: Positive for: Other (intubated and sedated) - Medications Active Medications: Active Medications Generic Name Dose Route Start Last Admin Trade Name Freq PRN Reason Stop Dose Admin Acetaminophen 650 mg 08/24/18 00:04 09/03/18 13:54 Tylenol 325mg Tab PO 650 mg Q6 PRN Administration TEMP>=99.5F Budesonide 0.5 mg 09/02/18 08:00 09/13/18 08:08 Pulmicort Respules IH 0.5 mg [id number] CASSY Administration Collagenase 0 gm 08/25/18 10:00 09/13/18 10:35 Santyl TOP 1 appl DAILY CASSY Administration Ergocalciferol 1 cap 08/26/18 15:00 09/09/18 15:56 Drisdol 50,000 Intl Units Cap PO 1 cap Q7D CASSY Administration Folic Acid 1 mg 08/26/18 15:00 09/13/18 10:31 Folic Acid PO 1 mg DAILY CASSY Administration Furosemide 60 mg 09/09/18 10:15 09/13/18 10:25 Lasix IVP 60 mg Q12 CASSY Administration Meropenem/Sodium Chloride 500 mg in 50 mls @ 100 mls/hr 09/08/18 22:00 09/13/18 10:31 Merrem Iv 500 Mg/Ns 50 Ml IVPB 09/13/18 22:01 100 mls/hr Q12 CASSY Administration Protocol NOREPINEPHRINE BIT/0.9 % NACL 4 mg in 250 mls @ 15 mls/hr 09/10/18 10:20 09/13/18 10:29 Levophed 4 Mg/ 250 Ml Ns Premixed IV 2 mcg/min .[id number] PRN 7.5 mls/hr TITRATE PER MD ORDER Titration Protocol 4 MCG/MIN Fentanyl Citrate 1,000 mcg in 100 mls @ 2 mls/hr 09/11/18 19:40 09/13/18 11:52 Fentanyl Citrate/Sodium Chloride 1 Mg/100 Ml IV 160 mcg/hr .Q24H PRN 16 mls/hr TITRATE PER MD ORDER Administration Protocol 20 MCG/HR Dobutamine HCl/Dextrose 500 mg in 250 mls @ 10.274 mls/hr 09/13/18 09:46 09/13/18 10:32 Dobutamine/Dextrose 5% 500mg/250ml IV 5 mcg/kg/min .Q24H PRN 10.274 mls/hr TITRATE PER PROTOCOL Administration Protocol 5 MCG/KG/MIN Dexmedetomidine HCl 400 mcg in 100 mls @ 3.425 mls/hr 09/13/18 09:56 09/13/18 13:01 Precedex 400mcg/100ml IV 1 mcg/kg/hr .Q24H PRN 17.123 mls/hr Agitation Titration Protocol 0.2 MCG/KG/HR Levalbuterol HCl 0.63 mg 09/04/18 20:00 09/13/18 13:10 Xopenex IH 0.63 mg [id number] CASSY Administration Methylprednisolone 20 mg 09/13/18 10:30 09/13/18 10:26 Solu-Medrol IVP 20 mg Q12 CASSY Administration Metoprolol Tartrate 5 mg 09/08/18 09:18 09/13/18 06:02 Lopressor IVP Not Given Q6 CASSY Midodrine 7.5 mg 09/13/18 10:00 09/13/18 10:31 Proamatine PO 7.5 mg TID CASSY Administration Nicotine 1 patch 08/24/18 10:00 09/13/18 10:33 Nicoderm Cq TD 1 patch DAILY CASSY Administration Nystatin 0 ea 09/03/18 18:00 09/13/18 10:35 Mycostatin Cream TOP 1 cre TID CASSY Administration Ondansetron HCl 4 mg 08/24/18 00:04 Zofran Inj IVP Q4H PRN Nausea/Vomiting Pantoprazole Sodium 40 mg 09/02/18 10:00 09/13/18 10:28 Protonix Inj IVP 40 mg DAILY CASSY Administration Polyethylene Glycol 17 gm 08/31/18 10:00 09/13/18 10:31 Miralax PO 17 gm DAILY CASSY Administration Sodium Hypochlorite 0 ml 09/01/18 13:00 09/12/18 09:31 Dakins Solution 0.25% TOP 1 applic DAILY CASSY Administration - Patient Studies Lab Studies: Lab Studies 09/13/18 09/13/18 09/13/18 Range/Units 07:51 07:20 06:00 WBC (4.5-11.0) 10^3/uL RBC (3.5-6.1) 10^6/uL Hgb (14.0-18.0) g/dL Hct (42.0-52.0) % MCV (80.0-105.0) fl MCH (25.0-35.0) pg MCHC (31.0-37.0) g/dl RDW (11.5-14.5) % Plt Count (120.0-450.0) 10^3/uL MPV (7.0-11.0) fl Neut % (Auto) (50.0-68.0) % Lymph % (Auto) (22.0-35.0) % [place] % (Auto) (1.0-6.0) % Eos % (Auto) (1.5-5.0) % Baso % (Auto) (0.0-3.0) % Lymph # (Auto) (1.2-3.4) [place] # (Auto) (0.1-0.6) Eos # (Auto) (0.0-0.7) Baso # (Auto) (0.0-2.0) K/mm3 Absolute Neuts (auto) (1.4-6.5) pCO2 (35-45) mm/Hg pO2 (80-100) mm/Hg HCO3 (21-28) mmol/L ABG pH (7.35-7.45) ABG Total CO2 (22-28) mmol.L ABG O2 Saturation (95-98) % ABG O2 Content (15-23) ML/dl ABG Base Excess (-2.0-3.0) mmol/L ABG Hemoglobin (11.7-17.4) g/dL ABG Carboxyhemoglobin (0.5-1.5) % POC ABG HHb (Measured) (0-5) % ABG Methemoglobin (0.0-3.0) % ABG O2 Capacity (16-24) mL/dl Hgb O2 Saturation (95.0-98.0) % FiO2 % Sodium 149 H (132-148) mmol/L Potassium 5.0 (3.6-5.0) mmol/L Chloride 115 H (98-107) mmol/L Carbon Dioxide 34 H (21-33) mmol/L Anion Gap 4 L (10-20) BUN 104 H (7-21) mg/dL Creatinine 1.4 (0.8-1.5) mg/dl Est GFR ( Amer) > 60 Est GFR (Non-Af Amer) 50 POC Glucose (mg/dL) 206 H (65-110) mg/dL Random Glucose 125 H (70-110) mg/dL Calcium 8.1 L (8.4-10.5) mg/dL Phosphorus 3.4 (2.5-4.5) mg/dL Magnesium 2.3 H (1.7-2.2) mg/dL Total Bilirubin 0.3 (0.2-1.3) mg/dL AST 34 (17-59) U/L ALT 38 (7-56) U/L Alkaline Phosphatase 90 (38-126) U/L NT-Pro-B Natriuret Pep 4720 H (0-450) pg/mL Total Protein 5.1 L (5.8-8.3) g/dL Albumin 2.1 L (3.0-4.8) g/dL Globulin 3.1 gm/dL Albumin/Globulin Ratio 0.7 L (1.1-1.8) 09/13/18 09/13/18 09/12/18 Range/Units 06:00 05:25 22:03 WBC 14.0 H (4.5-11.0) 10^3/uL RBC 3.31 L (3.5-6.1) 10^6/uL Hgb 8.9 L (14.0-18.0) g/dL Hct 31.5 L (42.0-52.0) % MCV 95.2 (80.0-105.0) fl MCH 26.9 (25.0-35.0) pg MCHC 28.3 L (31.0-37.0) g/dl RDW 16.5 H (11.5-14.5) % Plt Count 70 L (120.0-450.0) 10^3/uL MPV 11.4 H (7.0-11.0) fl Neut % (Auto) 64.3 (50.0-68.0) % Lymph % (Auto) 7.9 L (22.0-35.0) % [place] % (Auto) 10.7 H (1.0-6.0) % Eos % (Auto) 16.0 H (1.5-5.0) % Baso % (Auto) 1.1 (0.0-3.0) % Lymph # (Auto) 1.1 L (1.2-3.4) [place] # (Auto) 1.5 H (0.1-0.6) Eos # (Auto) 2.2 H (0.0-0.7) Baso # (Auto) 0.15 (0.0-2.0) K/mm3 Absolute Neuts (auto) 8.99 H (1.4-6.5) pCO2 59 H (35-45) mm/Hg pO2 56.0 L (80-100) mm/Hg HCO3 34.1 H (21-28) mmol/L ABG pH 7.37 (7.35-7.45) ABG Total CO2 35.9 H (22-28) mmol.L ABG O2 Saturation 93.2 L (95-98) % ABG O2 Content 11.2 L (15-23) ML/dl ABG Base Excess 7.6 H (-2.0-3.0) mmol/L ABG Hemoglobin 8.8 L (11.7-17.4) g/dL ABG Carboxyhemoglobin 2.3 H (0.5-1.5) % POC ABG HHb (Measured) 6.6 H (0-5) % ABG Methemoglobin 1.1 (0.0-3.0) % ABG O2 Capacity 12.0 L (16-24) mL/dl Hgb O2 Saturation 90.0 L (95.0-98.0) % FiO2 70.0 % Sodium (132-148) mmol/L Potassium (3.6-5.0) mmol/L Chloride (98-107) mmol/L Carbon Dioxide (21-33) mmol/L Anion Gap (10-20) BUN (7-21) mg/dL Creatinine (0.8-1.5) mg/dl Est GFR ( Amer) Est GFR (Non-Af Amer) POC Glucose (mg/dL) 112 H (65-110) mg/dL Random Glucose (70-110) mg/dL Calcium (8.4-10.5) mg/dL Phosphorus (2.5-4.5) mg/dL Magnesium (1.7-2.2) mg/dL Total Bilirubin (0.2-1.3) mg/dL AST (17-59) U/L ALT (7-56) U/L Alkaline Phosphatase (38-126) U/L NT-Pro-B Natriuret Pep (0-450) pg/mL Total Protein (5.8-8.3) g/dL Albumin (3.0-4.8) g/dL Globulin gm/dL Albumin/Globulin Ratio (1.1-1.8) 09/12/18 09/12/18 Range/Units 16:07 11:09 WBC (4.5-11.0) 10^3/uL RBC (3.5-6.1) 10^6/uL Hgb (14.0-18.0) g/dL Hct (42.0-52.0) % MCV (80.0-105.0) fl MCH (25.0-35.0) pg MCHC (31.0-37.0) g/dl RDW (11.5-14.5) % Plt Count (120.0-450.0) 10^3/uL MPV (7.0-11.0) fl Neut % (Auto) (50.0-68.0) % Lymph % (Auto) (22.0-35.0) % [place] % (Auto) (1.0-6.0) % Eos % (Auto) (1.5-5.0) % Baso % (Auto) (0.0-3.0) % Lymph # (Auto) (1.2-3.4) [place] # (Auto) (0.1-0.6) Eos # (Auto) (0.0-0.7) Baso # (Auto) (0.0-2.0) K/mm3 Absolute Neuts (auto) (1.4-6.5) pCO2 (35-45) mm/Hg pO2 (80-100) mm/Hg HCO3 (21-28) mmol/L ABG pH (7.35-7.45) ABG Total CO2 (22-28) mmol.L ABG O2 Saturation (95-98) % ABG O2 Content (15-23) ML/dl ABG Base Excess (-2.0-3.0) mmol/L ABG Hemoglobin (11.7-17.4) g/dL ABG Carboxyhemoglobin (0.5-1.5) % POC ABG HHb (Measured) (0-5) % ABG Methemoglobin (0.0-3.0) % ABG O2 Capacity (16-24) mL/dl Hgb O2 Saturation (95.0-98.0) % FiO2 % Sodium (132-148) mmol/L Potassium (3.6-5.0) mmol/L Chloride (98-107) mmol/L Carbon Dioxide (21-33) mmol/L Anion Gap (10-20) BUN (7-21) mg/dL Creatinine (0.8-1.5) mg/dl Est GFR ( Amer) Est GFR (Non-Af Amer) POC Glucose (mg/dL) 163 H 149 H (65-110) mg/dL Random Glucose (70-110) mg/dL Calcium (8.4-10.5) mg/dL Phosphorus (2.5-4.5) mg/dL Magnesium (1.7-2.2) mg/dL Total Bilirubin (0.2-1.3) mg/dL AST (17-59) U/L ALT (7-56) U/L Alkaline Phosphatase (38-126) U/L NT-Pro-B Natriuret Pep (0-450) pg/mL Total Protein (5.8-8.3) g/dL Albumin (3.0-4.8) g/dL Globulin gm/dL Albumin/Globulin Ratio (1.1-1.8) Laboratory Results - last 24 hr 09/12/18 09/12/18 09/12/18 11:09 16:07 22:03 WBC RBC Hgb Hct MCV MCH MCHC RDW Plt Count MPV Neut % (Auto) Lymph % (Auto) [place] % (Auto) Eos % (Auto) Baso % (Auto) Lymph # (Auto) [place] # (Auto) Eos # (Auto) Baso # (Auto) Absolute Neuts (auto) pCO2 pO2 HCO3 ABG pH ABG Total CO2 ABG O2 Saturation ABG O2 Content ABG Base Excess ABG Hemoglobin ABG Carboxyhemoglobin POC ABG HHb (Measured) ABG Methemoglobin ABG O2 Capacity Hgb O2 Saturation FiO2 Sodium Potassium Chloride Carbon Dioxide Anion Gap BUN Creatinine Est GFR ( Amer) Est GFR (Non-Af Amer) POC Glucose (mg/dL) 149 H 163 H 112 H Random Glucose Calcium Phosphorus Magnesium Total Bilirubin AST ALT Alkaline Phosphatase NT-Pro-B Natriuret Pep Total Protein Albumin Globulin Albumin/Globulin Ratio 09/13/18 09/13/18 09/13/18 05:25 06:00 06:00 WBC 14.0 H RBC 3.31 L Hgb 8.9 L Hct 31.5 L MCV 95.2 MCH 26.9 MCHC 28.3 L RDW 16.5 H Plt Count 70 L MPV 11.4 H Neut % (Auto) 64.3 Lymph % (Auto) 7.9 L [place] % (Auto) 10.7 H Eos % (Auto) 16.0 H Baso % (Auto) 1.1 Lymph # (Auto) 1.1 L [place] # (Auto) 1.5 H Eos # (Auto) 2.2 H Baso # (Auto) 0.15 Absolute Neuts (auto) 8.99 H pCO2 59 H pO2 56.0 L HCO3 34.1 H ABG pH 7.37 ABG Total CO2 35.9 H ABG O2 Saturation 93.2 L ABG O2 Content 11.2 L ABG Base Excess 7.6 H ABG Hemoglobin 8.8 L ABG Carboxyhemoglobin 2.3 H POC ABG HHb (Measured) 6.6 H ABG Methemoglobin 1.1 ABG O2 Capacity 12.0 L Hgb O2 Saturation 90.0 L FiO2 70.0 Sodium 149 H Potassium 5.0 Chloride 115 H Carbon Dioxide 34 H Anion Gap 4 L BUN 104 H Creatinine 1.4 Est GFR ( Amer) > 60 Est GFR (Non-Af Amer) 50 POC Glucose (mg/dL) Random Glucose 125 H Calcium 8.1 L Phosphorus 3.4 Magnesium 2.3 H Total Bilirubin 0.3 AST 34 ALT 38 Alkaline Phosphatase 90 NT-Pro-B Natriuret Pep Total Protein 5.1 L Albumin 2.1 L Globulin 3.1 Albumin/Globulin Ratio 0.7 L 09/13/18 09/13/18 07:20 07:51 WBC RBC Hgb Hct MCV MCH MCHC RDW Plt Count MPV Neut % (Auto) Lymph % (Auto) [place] % (Auto) Eos % (Auto) Baso % (Auto) Lymph # (Auto) [place] # (Auto) Eos # (Auto) Baso # (Auto) Absolute Neuts (auto) pCO2 pO2 HCO3 ABG pH ABG Total CO2 ABG O2 Saturation ABG O2 Content ABG Base Excess ABG Hemoglobin ABG Carboxyhemoglobin POC ABG HHb (Measured) ABG Methemoglobin ABG O2 Capacity Hgb O2 Saturation FiO2 Sodium Potassium Chloride Carbon Dioxide Anion Gap BUN Creatinine Est GFR ( Amer) Est GFR (Non-Af Amer) POC Glucose (mg/dL) 206 H Random Glucose Calcium Phosphorus Magnesium Total Bilirubin AST ALT Alkaline Phosphatase NT-Pro-B Natriuret Pep 4720 H Total Protein Albumin Globulin Albumin/Globulin Ratio Radiology Impressions: Radiology Impressions Chest X-Ray 09/13/18 06:00 IMPRESSION: Redemonstrated are pulmonary venous congestion with bilateral alveolar-type infiltrates and bilateral effusions Fingerstick Blood Sugar Results: 112 Critical Care Progress Note - Nutrition Nutrition: Nutrition Category Date Time Status NPO Diet [DIET] Diets 09/06/18 Breakfast Ordered Assessment/Plan - Assessment and Plan (Free Text) Assessment: Pt is a 68 yo M with pmhx of chronic back pain and vertebral disc disease who presented to the [facility] ED for complaints of b/l foot pain and back pain. ICU is consulted for management of pts acute hypercapnic respiratory failure and AMS. Pt had R thoracentesis done 08/31, pt was also intubated due to continued resp acidosis even on 100% FiO2 on Bipap. Pt was noted to have recurrence of L sided white out likely 2/2 mucous plug. Pt was intubated 09/07 and bronched and mutliple mucus plugs were removed. Repeat CXR clearing of L side of the lung, with persistent R sided hilar infiltrate. Pt will go for trach tomorrow. Plan: Neuro: - Pt is intubated and sedated - On precedex and fentanyl drip Pulm: Acute hypercapnic resp failure leading to respiratory acidosis w/ chronic incomplete compensatory resp alkalosis: - Likely 2/2 CHF exacerbation vs PNA vs mucous plug. Unlikely PE due to r/o by CTA - Pt intubated and subsequently bronched for mucous plug removal 09/06 & 09/07 - Pt will remain intubated and assessed for extubation - Pt will be going for trach later this week. - CXR: Redemonstrated are pulmonary venous congestion with bilateral alveolar-type infiltrates and bilateral effusions - Echo showed mildly imparied LV systolic dysfunction - BNP elevated - HOB elevated, oral hygiene - Abrams - Strict I/Os. Minimize positive fluid balance - Daily weight - Conversative O2 management PNA vs CHF: - Procal elevated - CXR and echo resulted noted above - ID on board, recs appreciated: Merrem q8 and intermittent vanc day 15 of tx - Bornch aspirate showed carlin in the washings - Started micafungin - Zyvox d/helga by ID due to dropping platelets - Repeat blood, urine and sputum cultures Cardio: Shock: Septic vs cardiogenic: - Pt has been titrated off of levophed drip today. - Continue lasix for diuresis for suspected cardiogenic shock - Pt had episode of hypotension for short period of time, bolused 2L NS, and episode resolved, will cont to monitor. - s/p Thoracentesis 08/31: 1700ml out - s/p bronch for mucous plug removal 09/06 & 09/07 - Tapered off stress dose steroids - Goal is MAP > 65 Nephro: Pre-renal Azotemia: - BUN/Cr = 104/1.4 - UA, urine sodium, urine cl, urine osms, urine protein and serum osms ordered - Conservative fluid management - Will cont to monitor - Will give lasix, now due to fluid overload and respiratory compromise but will limit other nephrotoxic agents - Nephro consulted, recs appreciated - Monitor I/Os - Maintain euvolemia Endo: - Maintain euglycemia - Ensure BS is regulated between 40-180 GI: - Tube feeds at 30/hr - Protonix Heme: - Pts platelets have been steadily decreasing - Unlikely HIT as platelets were decreasing prior to introduction of heparin - Zyvox d/helga per ID to r/o thrombocytopenia side effects from zyvox MSK: B/l foot cellulitis - MRSA (+): - continue multipodus boots - cultures growing MRSA - Continue IV Vanc. ID following - Pt is refusing MRI to r/o osteomyelitis ID: Stage 3 Sacral decub ulcer: - Pt refusing MRI - Santyl and local wound care - Cont Vancomycin per ID recs - Will discuss with ID to transition to oral abx in order to minimize positive fluid balance DVT PPx: Heparin/Protonix Case seen, examined and discussed with attending physician, Dr. Akbar Zimmerman PGY1 <Shimon Webber - Last Filed: 09/14/18 13:28> CCU Objective - Vital Signs / Intake & Output Intake and Output (Last 8hrs): Intake & Output 09/13/18 09/14/18 09/14/18 22:59 06:59 14:59 Intake Total 2050 1390 275 Output Total 1000 800 Balance 1050 590 275 Intake: IV 1510 1270 275 Right Internal Jugular 1160 970 Oral 540 0 Tube Feeding 120 Output: Urine 1000 800 Urethral (Abrams) 1000 800 Other: # Bowel Movements 300 0 - Medications Active Medications: Active Medications Generic Name Dose Route Start Last Admin Trade Name Freq PRN Reason Stop Dose Admin Acetaminophen 650 mg 08/24/18 00:04 09/03/18 13:54 Tylenol 325mg Tab PO 650 mg Q6 PRN Administration TEMP>=99.5F Budesonide 0.5 mg 09/02/18 08:00 09/14/18 07:28 Pulmicort Respules IH 0.5 mg [id number] CASSY Administration Collagenase 0 gm 08/25/18 10:00 09/13/18 10:35 Santyl TOP 1 appl DAILY CASSY Administration Ergocalciferol 1 cap 08/26/18 15:00 09/09/18 15:56 Drisdol 50,000 Intl Units Cap PO 1 cap Q7D CASSY Administration Folic Acid 1 mg 08/26/18 15:00 09/13/18 10:31 Folic Acid PO 1 mg DAILY CASSY Administration Furosemide 60 mg 09/09/18 10:15 09/13/18 22:29 Lasix IVP 60 mg Q12 CASSY Administration NOREPINEPHRINE BIT/0.9 % NACL 4 mg in 250 mls @ 15 mls/hr 09/10/18 10:20 09/14/18 07:24 Levophed 4 Mg/ 250 Ml Ns Premixed IV 2 mcg/min .[id number] PRN 7.5 mls/hr TITRATE PER MD ORDER Titration Protocol 4 MCG/MIN Fentanyl Citrate 1,000 mcg in 100 mls @ 2 mls/hr 09/11/18 19:40 09/14/18 09:44 Fentanyl Citrate/Sodium Chloride 1 Mg/100 Ml IV 200 mcg/hr .Q24H PRN 20 mls/hr TITRATE PER MD ORDER Administration Protocol 20 MCG/HR Dobutamine HCl/Dextrose 500 mg in 250 mls @ 10.274 mls/hr 09/13/18 09:46 09/13/18 10:32 Dobutamine/Dextrose 5% 500mg/250ml IV 5 mcg/kg/min .Q24H PRN 10.274 mls/hr TITRATE PER PROTOCOL Administration Protocol 5 MCG/KG/MIN Dexmedetomidine HCl 400 mcg in 100 mls @ 3.425 mls/hr 09/13/18 09:56 09/14/18 12:31 Precedex 400mcg/100ml IV 1.5 mcg/kg/hr .Q24H PRN 25.685 mls/hr Agitation Administration Protocol 0.2 MCG/KG/HR Micafungin Sodium 100 mg/ 100 mls @ 100 mls/hr 09/13/18 14:45 09/13/18 15:20 Sodium Chloride IV 09/20/18 14:46 100 mls/hr DAILY CASSY Administration Protocol Levalbuterol HCl 0.63 mg 09/04/18 20:00 09/14/18 13:13 Xopenex IH 0.63 mg [id number] CASSY Administration Methylprednisolone 20 mg 09/13/18 10:30 09/13/18 22:32 Solu-Medrol IVP 20 mg Q12 CASSY Administration Midodrine 7.5 mg 09/13/18 10:00 09/13/18 18:39 Proamatine PO 7.5 mg TID CASSY Administration Multi-Ingredient Ointment 0 gm 09/13/18 14:15 09/14/18 02:45 Hydrophor Oint TOP 1 dose Q6H CASSY Administration Nicotine 1 patch 08/24/18 10:00 09/13/18 10:33 Nicoderm Cq TD 1 patch DAILY CASSY Administration Nystatin 0 ea 09/03/18 18:00 09/13/18 18:33 Mycostatin Cream TOP 1 cre TID CASSY Administration Ondansetron HCl 4 mg 08/24/18 00:04 Zofran Inj IVP Q4H PRN Nausea/Vomiting Pantoprazole Sodium 40 mg 09/02/18 10:00 09/13/18 10:28 Protonix Inj IVP 40 mg DAILY CASSY Administration Polyethylene Glycol 17 gm 08/31/18 10:00 09/13/18 10:31 Miralax PO 17 gm DAILY CASSY Administration Sodium Hypochlorite 0 ml 09/01/18 13:00 09/12/18 09:31 Dakins Solution 0.25% TOP 1 applic DAILY CASSY Administration - Patient Studies Lab Studies: Lab Studies 09/14/18 09/14/18 09/14/18 Range/Units 07:30 07:30 07:30 WBC 12.7 H (4.5-11.0) 10^3/uL RBC 3.44 L (3.5-6.1) 10^6/uL Hgb 9.2 L (14.0-18.0) g/dL Hct 32.2 L (42.0-52.0) % MCV 93.6 (80.0-105.0) fl MCH 26.7 (25.0-35.0) pg MCHC 28.6 L (31.0-37.0) g/dl RDW 16.6 H (11.5-14.5) % Plt Count 137 (120.0-450.0) 10^3/uL MPV 11.8 H (7.0-11.0) fl Neut % (Auto) 87.9 H (50.0-68.0) % Lymph % (Auto) 8.2 L (22.0-35.0) % [place] % (Auto) 2.4 (1.0-6.0) % Eos % (Auto) 0.6 L (1.5-5.0) % Baso % (Auto) 0.9 (0.0-3.0) % Lymph # (Auto) 1.0 L (1.2-3.4) [place] # (Auto) 0.3 (0.1-0.6) Eos # (Auto) 0.1 (0.0-0.7) Baso # (Auto) 0.12 (0.0-2.0) K/mm3 Absolute Neuts (auto) 11.18 H (1.4-6.5) PT 12.5 (9.4-12.5) SECONDS INR 1.11 pCO2 (35-45) mm/Hg pO2 (80-100) mm/Hg HCO3 (21-28) mmol/L ABG pH (7.35-7.45) ABG Total CO2 (22-28) mmol.L ABG O2 Saturation (95-98) % ABG O2 Content (15-23) ML/dl ABG Base Excess (-2.0-3.0) mmol/L ABG Hemoglobin (11.7-17.4) g/dL ABG Carboxyhemoglobin (0.5-1.5) % POC ABG HHb (Measured) (0-5) % ABG Methemoglobin (0.0-3.0) % ABG O2 Capacity (16-24) mL/dl Hgb O2 Saturation (95.0-98.0) % FiO2 % Sodium 147 (132-148) mmol/L Potassium 5.4 H (3.6-5.0) mmol/L Chloride 114 H (98-107) mmol/L Carbon Dioxide 34 H (21-33) mmol/L Anion Gap 4 L (10-20) BUN 107 H (7-21) mg/dL Creatinine 1.4 (0.8-1.5) mg/dl Est GFR ( Amer) > 60 Est GFR (Non-Af Amer) 50 POC Glucose (mg/dL) (65-110) mg/dL Random Glucose 126 H (70-110) mg/dL Calcium 8.6 (8.4-10.5) mg/dL Phosphorus 4.3 (2.5-4.5) mg/dL Magnesium 2.4 H (1.7-2.2) mg/dL Total Bilirubin 0.4 (0.2-1.3) mg/dL AST 27 (17-59) U/L ALT 37 (7-56) U/L Alkaline Phosphatase 90 (38-126) U/L Total Protein 5.7 L (5.8-8.3) g/dL Albumin 2.4 L (3.0-4.8) g/dL Globulin 3.3 gm/dL Albumin/Globulin Ratio 0.7 L (1.1-1.8) 09/14/18 09/14/18 09/13/18 Range/Units 07:25 05:10 22:10 WBC (4.5-11.0) 10^3/uL RBC (3.5-6.1) 10^6/uL Hgb (14.0-18.0) g/dL Hct (42.0-52.0) % MCV (80.0-105.0) fl MCH (25.0-35.0) pg MCHC (31.0-37.0) g/dl RDW (11.5-14.5) % Plt Count (120.0-450.0) 10^3/uL MPV (7.0-11.0) fl Neut % (Auto) (50.0-68.0) % Lymph % (Auto) (22.0-35.0) % [place] % (Auto) (1.0-6.0) % Eos % (Auto) (1.5-5.0) % Baso % (Auto) (0.0-3.0) % Lymph # (Auto) (1.2-3.4) [place] # (Auto) (0.1-0.6) Eos # (Auto) (0.0-0.7) Baso # (Auto) (0.0-2.0) K/mm3 Absolute Neuts (auto) (1.4-6.5) PT (9.4-12.5) SECONDS INR pCO2 51 H (35-45) mm/Hg pO2 51.0 L (80-100) mm/Hg HCO3 33.1 H (21-28) mmol/L ABG pH 7.42 (7.35-7.45) ABG Total CO2 34.7 H (22-28) mmol.L ABG O2 Saturation 92.2 L (95-98) % ABG O2 Content 10.3 L (15-23) ML/dl ABG Base Excess 7.7 H (-2.0-3.0) mmol/L ABG Hemoglobin 8.2 L (11.7-17.4) g/dL ABG Carboxyhemoglobin 2.0 H (0.5-1.5) % POC ABG HHb (Measured) 7.6 H (0-5) % ABG Methemoglobin 0.9 (0.0-3.0) % ABG O2 Capacity 11.2 L (16-24) mL/dl Hgb O2 Saturation 89.4 L (95.0-98.0) % FiO2 80.0 % Sodium (132-148) mmol/L Potassium (3.6-5.0) mmol/L Chloride (98-107) mmol/L Carbon Dioxide (21-33) mmol/L Anion Gap (10-20) BUN (7-21) mg/dL Creatinine (0.8-1.5) mg/dl Est GFR ( Amer) Est GFR (Non-Af Amer) POC Glucose (mg/dL) 133 H 144 H (65-110) mg/dL Random Glucose (70-110) mg/dL Calcium (8.4-10.5) mg/dL Phosphorus (2.5-4.5) mg/dL Magnesium (1.7-2.2) mg/dL Total Bilirubin (0.2-1.3) mg/dL AST (17-59) U/L ALT (7-56) U/L Alkaline Phosphatase (38-126) U/L Total Protein (5.8-8.3) g/dL Albumin (3.0-4.8) g/dL Globulin gm/dL Albumin/Globulin Ratio (1.1-1.8) 09/13/ Range/Units 16:23 WBC (4.5-11.0) 10^3/uL RBC (3.5-6.1) 10^6/uL Hgb (14.0-18.0) g/dL Hct (42.0-52.0) % MCV (80.0-105.0) fl MCH (25.0-35.0) pg MCHC (31.0-37.0) g/dl RDW (11.5-14.5) % Plt Count (120.0-450.0) 10^3/uL MPV (7.0-11.0) fl Neut % (Auto) (50.0-68.0) % Lymph % (Auto) (22.0-35.0) % [place] % (Auto) (1.0-6.0) % Eos % (Auto) (1.5-5.0) % Baso % (Auto) (0.0-3.0) % Lymph # (Auto) (1.2-3.4) [place] # (Auto) (0.1-0.6) Eos # (Auto) (0.0-0.7) Baso # (Auto) (0.0-2.0) K/mm3 Absolute Neuts (auto) (1.4-6.5) PT (9.4-12.5) SECONDS INR pCO2 (35-45) mm/Hg pO2 (80-100) mm/Hg HCO3 (21-28) mmol/L ABG pH (7.35-7.45) ABG Total CO2 (22-28) mmol.L ABG O2 Saturation (95-98) % ABG O2 Content (15-23) ML/dl ABG Base Excess (-2.0-3.0) mmol/L ABG Hemoglobin (11.7-17.4) g/dL ABG Carboxyhemoglobin (0.5-1.5) % POC ABG HHb (Measured) (0-5) % ABG Methemoglobin (0.0-3.0) % ABG O2 Capacity (16-24) mL/dl Hgb O2 Saturation (95.0-98.0) % FiO2 % Sodium (132-148) mmol/L Potassium (3.6-5.0) mmol/L Chloride (98-107) mmol/L Carbon Dioxide (21-33) mmol/L Anion Gap (10-20) BUN (7-21) mg/dL Creatinine (0.8-1.5) mg/dl Est GFR ( Amer) Est GFR (Non-Af Amer) POC Glucose (mg/dL) 139 H (65-110) mg/dL Random Glucose (70-110) mg/dL Calcium (8.4-10.5) mg/dL Phosphorus (2.5-4.5) mg/dL Magnesium (1.7-2.2) mg/dL Total Bilirubin (0.2-1.3) mg/dL AST (17-59) U/L ALT (7-56) U/L Alkaline Phosphatase (38-126) U/L Total Protein (5.8-8.3) g/dL Albumin (3.0-4.8) g/dL Globulin gm/dL Albumin/Globulin Ratio (1.1-1.8) Laboratory Results - last 24 hr 09/13/18 09/13/18 09/14/18 16:23 22:10 05:10 WBC RBC Hgb Hct MCV MCH MCHC RDW Plt Count MPV Neut % (Auto) Lymph % (Auto) [place] % (Auto) Eos % (Auto) Baso % (Auto) Lymph # (Auto) [place] # (Auto) Eos # (Auto) Baso # (Auto) Absolute Neuts (auto) PT INR pCO2 51 H pO2 51.0 L HCO3 33.1 H ABG pH 7.42 ABG Total CO2 34.7 H ABG O2 Saturation 92.2 L ABG O2 Content 10.3 L ABG Base Excess 7.7 H ABG Hemoglobin 8.2 L ABG Carboxyhemoglobin 2.0 H POC ABG HHb (Measured) 7.6 H ABG Methemoglobin 0.9 ABG O2 Capacity 11.2 L Hgb O2 Saturation 89.4 L FiO2 80.0 Sodium Potassium Chloride Carbon Dioxide Anion Gap BUN Creatinine Est GFR ( Amer) Est GFR (Non-Af Amer) POC Glucose (mg/dL) 139 H 144 H Random Glucose Calcium Phosphorus Magnesium Total Bilirubin AST ALT Alkaline Phosphatase Total Protein Albumin Globulin Albumin/Globulin Ratio 09/14/18 09/14/18 09/14/18 07:25 07:30 07:30 WBC 12.7 H RBC 3.44 L Hgb 9.2 L Hct 32.2 L MCV 93.6 MCH 26.7 MCHC 28.6 L RDW 16.6 H Plt Count 137 MPV 11.8 H Neut % (Auto) 87.9 H Lymph % (Auto) 8.2 L [place] % (Auto) 2.4 Eos % (Auto) 0.6 L Baso % (Auto) 0.9 Lymph # (Auto) 1.0 L [place] # (Auto) 0.3 Eos # (Auto) 0.1 Baso # (Auto) 0.12 Absolute Neuts (auto) 11.18 H PT INR pCO2 pO2 HCO3 ABG pH ABG Total CO2 ABG O2 Saturation ABG O2 Content ABG Base Excess ABG Hemoglobin ABG Carboxyhemoglobin POC ABG HHb (Measured) ABG Methemoglobin ABG O2 Capacity Hgb O2 Saturation FiO2 Sodium 147 Potassium 5.4 H Chloride 114 H Carbon Dioxide 34 H Anion Gap 4 L BUN 107 H Creatinine 1.4 Est GFR ( Amer) > 60 Est GFR (Non-Af Amer) 50 POC Glucose (mg/dL) 133 H Random Glucose 126 H Calcium 8.6 Phosphorus 4.3 Magnesium 2.4 H Total Bilirubin 0.4 AST 27 ALT 37 Alkaline Phosphatase 90 Total Protein 5.7 L Albumin 2.4 L Globulin 3.3 Albumin/Globulin Ratio 0.7 L 09/14/18 07:30 WBC RBC Hgb Hct MCV MCH MCHC RDW Plt Count MPV Neut % (Auto) Lymph % (Auto) [place] % (Auto) Eos % (Auto) Baso % (Auto) Lymph # (Auto) [place] # (Auto) Eos # (Auto) Baso # (Auto) Absolute Neuts (auto) PT 12.5 INR 1.11 pCO2 pO2 HCO3 ABG pH ABG Total CO2 ABG O2 Saturation ABG O2 Content ABG Base Excess ABG Hemoglobin ABG Carboxyhemoglobin POC ABG HHb (Measured) ABG Methemoglobin ABG O2 Capacity Hgb O2 Saturation FiO2 Sodium Potassium Chloride Carbon Dioxide Anion Gap BUN Creatinine Est GFR ( Amer) Est GFR (Non-Af Amer) POC Glucose (mg/dL) Random Glucose Calcium Phosphorus Magnesium Total Bilirubin AST ALT Alkaline Phosphatase Total Protein Albumin Globulin Albumin/Globulin Ratio Radiology Impressions: Radiology Impressions Extremity Ultrasound 09/13/18 09:49 IMPRESSION: No sonographic evidence for deep venous thrombosis in the visualized segments of both lower extremities. Limited study. Critical Care Progress Note - Nutrition Nutrition: Nutrition Category Date Time Status NPO Diet [DIET] Diets 09/06/18 Breakfast Ordered Attending/Attestation - Attestation I have personally seen and examined this patient.: Yes I have fully participated in the care of the patient.: Yes I have reviewed all pertinent clinical information: Yes Notes (Text): 09/14/18 13:[address] Webber's note
--- NOTE | 2018-09-13 13:54 | PN ---
DATE: 09/13/2018 LOCATION: The patient is in the Critical Care Unit 128, room 4. SUBJECTIVE: The patient is 68-year-old man. He is in Critical Care Unit for respiratory failure. The patient is intubated. The patient is being fed by nasogastric tube. The patient has history of chronic infection of the leg. The patient has history of chronic lung disease. The patient has history of atherosclerotic heart disease and cardiac arrhythmia and gastritis. The patient is currently intubated as mentioned. The patient is on oxygen maintained through the respirator. PHYSICAL EXAMINATION: VITAL SIGNS: Today, the patient's pulse is 85, blood pressure is 110. The patient is being medically treated, we are awaiting tracheotomy. The patient's final disposition is going to be long-term care facility where the patient needs chronic treatment for respiratory dependency on the respirator. MEDICATIONS: The patient's medications consists of Diprivan for maintaining treatment for . The patient is on fentanyl. The patient is on Morphine, Lasix, folic acid, metoprolol, Levophed, meropenem antibiotic. The patient is on nicotine patch and pantoprazole. The patient is on respiratory treatment with budesonide and levalbuterol and oxygen. The patient is on Zofran for nausea and vomiting, that is for mainly nausea. The patient is being provided nutrition support and I discussed the case with electronic specialist, he concludes that, there is a possibility of tracheotomy might be done today. The ICU and the critical care unit has to consult with the family and make arrangement for suitable transfer to long-term critical care unit. Donovan Aleman MD
--- NOTE | 2018-09-13 14:07 | CP.PCM.PN ---
Subjective - Date & Time of Evaluation Date of Evaluation: 09/13/18 Time of Evaluation: 14:04 - Subjective Subjective: Podiatry progress note: Dr. Longo 68 y/o M patient seen and evaluated in ICU for b/l ulcerations. Patient responsive to pain. As per patient charts, no acute overnight events. Patient didn't have overnight F/N/V or C. Objective - Vital Signs/Intake and Output Vital Signs (last 24 hours): Temp Pulse Resp BP Pulse Ox 98.1 F 118 H 24 127/50 L 92 L 09/10/18 16:00 09/13/18 13:01 09/12/18 05:42 09/13/18 13:01 09/13/18 13:01 Intake and Output: 09/13/18 09/13/18 06:59 18:59 Intake Total 2622 255 Output Total 350 Balance 2272 255 - Medications Medications: Current Medications Acetaminophen (Tylenol 325mg Tab) 650 mg PO Q6 PRN PRN Reason: TEMP>=99.5F Last Admin: 09/03/18 13:54 Dose: 650 mg Budesonide (Pulmicort Respules) 0.5 mg IH [id number] ON LICENSE OF [facility] Last Admin: 09/13/18 08:08 Dose: 0.5 mg Collagenase (Santyl) 0 gm TOP DAILY ON [facility] OF [facility] Last Admin: 09/13/18 10:35 Dose: 1 appl Ergocalciferol (Drisdol 50,000 Intl Units Cap) 1 cap PO Q7D ON LICENSE OF [facility] Last Admin: 09/09/18 15:56 Dose: 1 cap Folic Acid (Folic Acid) 1 mg PO DAILY ON [facility] OF [facility] Last Admin: 09/13/18 10:31 Dose: 1 mg Furosemide (Lasix) 60 mg IVP Q12 ON LICENSE OF [facility] Last Admin: 09/13/18 10:25 Dose: 60 mg Meropenem/Sodium Chloride (Merrem Iv 500 Mg/Ns 50 Ml) 500 mg in 50 mls @ 100 mls/hr IVPB Q12 [facility]; Protocol Stop: 09/13/18 22:01 Last Admin: 09/13/18 10:31 Dose: 100 mls/hr NOREPINEPHRINE BIT/0.9 % NACL (Levophed 4 Mg/ 250 Ml Ns Premixed) 4 mg in 250 mls @ 15 mls/hr IV .[id number] PRN; Protocol PRN Reason: TITRATE PER MD ORDER Last Titration: 09/13/18 10:29 Dose: 2 mcg/min, 7.5 mls/hr Fentanyl Citrate (Fentanyl Citrate/Sodium Chloride 1 Mg/100 Ml) 1,000 mcg in 100 mls @ 2 mls/hr IV .Q24H PRN; Protocol PRN Reason: TITRATE PER MD ORDER Last Admin: 09/13/18 11:52 Dose: 160 mcg/hr, 16 mls/hr Dobutamine HCl/Dextrose (Dobutamine/Dextrose 5% 500mg/250ml) 500 mg in 250 mls @ 10.274 mls/hr IV .Q24H PRN; Protocol PRN Reason: TITRATE PER PROTOCOL Last Admin: 09/13/18 10:32 Dose: 5 mcg/kg/min, 10.274 mls/hr Dexmedetomidine HCl (Precedex 400mcg/100ml) 400 mcg in 100 mls @ 3.425 mls/hr IV .Q24H PRN; Protocol PRN Reason: Agitation Last Titration: 09/13/18 13:01 Dose: 1 mcg/kg/hr, 17.123 mls/hr Levalbuterol HCl (Xopenex) 0.63 mg IH [id number] ON LICENSE OF [facility] Last Admin: 09/13/18 13:10 Dose: 0.63 mg Methylprednisolone (Solu-Medrol) 20 mg IVP Q12 [facility] Last Admin: 09/13/18 10:26 Dose: 20 mg Metoprolol Tartrate (Lopressor) 5 mg IVP Q6 [facility] Last Admin: 09/13/18 06:02 Dose: Not Given Midodrine (Proamatine) 7.5 mg PO TID ON LICENSE OF [facility] Last Admin: 09/13/18 10:31 Dose: 7.5 mg Nicotine (Nicoderm Cq) 1 patch TD DAILY ON LICENSE OF [facility] Last Admin: 09/13/18 10:33 Dose: 1 patch Nystatin (Mycostatin Cream) 0 ea TOP TID ON LICENSE OF [facility] Last Admin: 09/13/18 10:35 Dose: 1 cre Ondansetron HCl (Zofran Inj) 4 mg IVP Q4H PRN PRN Reason: Nausea/Vomiting Pantoprazole Sodium (Protonix Inj) 40 mg IVP DAILY ON [facility] OF [facility] Last Admin: 09/13/18 10:28 Dose: 40 mg Polyethylene Glycol (Miralax) 17 gm PO DAILY ON [facility] OF [facility] Last Admin: 09/13/18 10:31 Dose: 17 gm Sodium Hypochlorite (Dakins Solution 0.25%) 0 ml TOP DAILY [facility] Last Admin: 09/12/18 09:31 Dose: 1 applic - Labs Labs: 09/13/18 06:00 09/13/18 06:00 PT 12.8 SECONDS (9.4-12.5) H 09/10/18 10:20 INR 1.13 09/10/18 10:20 APTT 23.0 Seconds (26.9-38.3) L 09/10/18 10:20 - Head Exam Head Exam: ATRAUMATIC - Extremities Exam Additional comments: B/L lE focused exam: VASC: DP/PT non-palpable, Temp gradient warm to warm bilaterally, Lymphedema noted bilaterally (improving), non-pitting. Cap refill < 3 sec to all digits. NEURO: grossly intact b/l. DERM: LEFT- 0.4 cm X 0.4 cm wound noted to submetatarsal 1 head, significantly improving, fibrotic base, no drainage, no tunneling, tracking or probe to bone, no malodor, multiple superficial wounds noted to the lateral aspect of the left ankle with 100% granular skin base, no drainage, no probe to bone, no tunneling or tracking, no malodor, chronic skin trophic changes secondary to long standing peripheral vascular disease, no signs of infection noted clinically. Improving. RIGHT- Superficial wound noted to the lateral aspect of the leg at the site of previous chronic skin trophic changes secondary to long standing peripheral vascular disease, wound base 100% granular, Mild sanguineous drainage, mild malodor, no tunneling, tracking or probe to bone. Improving. MSK: Muscle power and pain level couldn't be assessed as patient is sedated, intubated and ventilated. Assessment and Plan - Assessment and Plan (Free Text) Assessment: 68 y/o male patient with bilateral lower extremity wounds, significantly improving Plan: Patient seen and evaluated Plan discussed with Dr. Longo. Chars, Labs and vitals reviewed; Afebrile, WBC 14.0 Bilateral foot x-ray ordered; No evidence of OM Patient refused CT and MRI before. ID on board Reccs appreciated. continue IV as per ID Left foot wound cultures: MRSA, Morg rosalinagnanii B/L LE wounds left open to air. No dressing applied. Ordered Aquaphor to be applied to the B/L LE for dryness. Continue wearing Multipodus boots. No podiatric intervention planned at this time, in our clinical judgement no evidence of OM, however, cannot be confirmed as patient has refused both MRI/CT Patient likely to be transferred to a [facility] care facility Podiatry will continue to follow up the patient while in house
--- NOTE | 2018-09-13 14:16 | US ---
HISTORY: Leg pain and swelling. Evaluate for DVT PHYSICIAN(S): Jero Tomlinson MD. TECHNIQUE: Duplex sonography and color-flow Doppler with graded compression were used to evaluate the deep venous systems of both lower extremities. The exam is very limited by edema. The tibial veins are not well seen FINDINGS: The visualized deep venous systems of both lower extremities are sonographically normal and compressible. Normal wave forms and augmentation are seen. There is no sonographic evidence for deep venous thrombosis in the visualized segments of both lower extremities. IMPRESSION: No sonographic evidence for deep venous thrombosis in the visualized segments of both lower extremities. Limited study.
--- NOTE | 2018-09-13 14:31 | PN ---
DATE: 09/13/2018 SUBJECTIVE: The patient seen and examined at bedside. He is on fentanyl 160 mcg per hour. He is on propofol 5 mcg/kg/minute. He is on norepinephrine 2 mcg per minute (down from 4 mcg per minute). He is enteral nutrition was switched down from 70 mL/hour to 30 mL/hour. PHYSICAL EXAMINATION VITAL SIGNS: His blood pressure 135/62, heart rate 120, oxygen saturation 96% and end-tidal CO2 on the monitor 43, his respiratory rate 26, he is on PRVC, his FIO2 was weaned down from 100% to 80%. His PEEP went up from 10 cmH20 to 15 cmH20, respiratory rate 20, tidal volume 380, PEEP 15 and FIO2 80%. On that setting, his oxygen saturation 94%. GENERAL: The patient appears to be comfortable. HEENT: Head and neck atraumatic. The patient is intubated. He has right IJ central line. LUNGS: Few crackles bilaterally. Decreased breath sounds bibasilar. HEART: Regular rate and rhythm. S1 and S2 distant. ABDOMEN: Soft, nontender and nondistended. The patient tolerated enteral nutrition well. MUSCULOSKELETAL: Trace bilateral pedal and ankle edema. He has some decubital ulcers and some ulcers in his hip area. He has some feet ulcers that are healing. SKIN: Moist. PSYCHIATRIC: The patient is alert and following commands. DIAGNOSTIC DATA: Bedside ultrasound revealed moderate to large pleural effusion bilaterally. Of note, the patient did have thoracentesis performed on August [address] Jero Tomlinson. LABORATORY DATA: WBC 14 down from 14.9, hemoglobin 8.9 and platelet count 17. Eosinophil count 16 (elevated). Sodium 149, potassium 5, chloride 115, carbon dioxide 34, BUN 104 and creatinine 1.4. ProBNP 4720. AST 34, ALT 38, total bilirubin 0.3. Procalcitonin as of August 30 was 0.61. Chest x-ray showed bilateral fluffy infiltrates with bilateral pleural effusion. ASSESSMENT: This is 68-year-old gentleman with hypoxemic respiratory failure with recurrent bilateral pleural effusion status post thoracentesis about a week ago, secondary to healthcare-associated pneumonia complicated by septic shock and multiorgan system failure including acute kidney injury, respiratory failure in the setting of RV failure Neuro: We will proceed with Precedex as the patient appears to be uncomfortable and possibility of delirium cannot be ruled out. The patient is also on chronic opiates for his back pain. We will continue pain control. The patient appears to be able to follow commands. Precedex will be used to prevent delirium. Pulmonary: We will continue with higher PEEP to FIO2 ratio, conservative fluid and oxygen management. The patient will be diuresed. We will continue with protective lung ventilation strategy and maintain tidal volume of 4-8 cc/pbwkg and plateau pressure less than 35 cm of water. We will continue with head of bed elevated >35 degrees and oral hygiene. Once gas exchange abnormality is corrected. We will proceed with sedation vacation and daily weaning trials. The patient is on broad-spectrum antibiotics. Cardiovascular: The patient has right ventricular failure and moderate right ventricular systolic dysfunction with borderline left ventricular systolic function. We will start the patient on dobutamine and will continue with diuresis. Hopefully, this will at least to some degree offset hemodynamic effect of higher PEEP on RV and PAP. We will monitor the patient's hemodynamics carefully as well and make necessary adjustments. Precedex may also help with heart rate control in the setting of dobutamine tx, ID: The patient has potential multiple sources for infection. He is on meropenem and intermittent vancomycin. The patient does have some skin rash which may or may not be related to fungal infection. Coupled that with presence of Aimee albicans in the bronchial washing and not substantial progress in patient's clinical course, we will discuss empiric antifungal therapy with Dr. Kelley. We will check beta 1,3 D glucan and procalcitonin level as well. The patient still require vasopressor support. The eosinophil count is slightly elevated, thus adding low dose of steroid therapy may be beneficial as well. I will also check urine eosinophil count to make sure that acute kidney injury is not related to interstitial nephritis as well. Renal: The patient has acute kidney injury; however, he is making good urine and his urine output about 100 per hour. However, the patient is hypoxemic and has substantial pleural effusion and appears to have also pulmonary edema, thus we will proceed with resuming diuresis/conservative fluid management at present time. We will be in close contact with Nephrology service as well. We will try to avoid hyperchloremia and maintain mean arterial pressure more than 65. We will maintain euvolemia and euglycemia. GI: The patient tolerates enteral nutrition well; however, we will go down on enteral feeds of at the present time (TARGET trial, JACOB trial). We will continue with DVT and GI prophylaxis. We will get the venous Doppler of lower extremities to rule out DVT. ccm time 40 min Shimon Webber MD [facility]
--- NOTE | 2018-09-13 14:43 | CP.PCM.PN ---
Subjective - Date & Time of Evaluation Date of Evaluation: 09/13/18 Time of Evaluation: 09:20 - Subjective Subjective: Patient continues to be on the ventilator, no fevers, for trach tomorrow. Objective - Vital Signs/Intake and Output Vital Signs (last 24 hours): Temp Pulse Resp BP Pulse Ox 97.4 F L 118 H 24 127/50 L 92 L 09/13/18 11:35 09/13/18 13:01 09/12/18 05:42 09/13/18 13:01 09/13/18 13:01 Intake and Output: 09/13/18 09/13/18 06:59 18:59 Intake Total 2622 255 Output Total 350 Balance 2272 255 - Medications Medications: Current Medications Acetaminophen (Tylenol 325mg Tab) 650 mg PO Q6 PRN PRN Reason: TEMP>=99.5F Last Admin: 09/03/18 13:54 Dose: 650 mg Budesonide (Pulmicort Respules) 0.5 mg IH [id number] [facility] Last Admin: 09/13/18 08:08 Dose: 0.5 mg Collagenase (Santyl) 0 gm TOP DAILY [facility] Last Admin: 09/13/18 10:35 Dose: 1 appl Ergocalciferol (Drisdol 50,000 Intl Units Cap) 1 cap PO Q7D [facility] Last Admin: 09/09/18 15:56 Dose: 1 cap Folic Acid (Folic Acid) 1 mg PO DAILY [facility] Last Admin: 09/13/18 10:31 Dose: 1 mg Furosemide (Lasix) 60 mg IVP Q12 [facility] Last Admin: 09/13/18 10:25 Dose: 60 mg Meropenem/Sodium Chloride (Merrem Iv 500 Mg/Ns 50 Ml) 500 mg in 50 mls @ 100 mls/hr IVPB Q12 [facility]; Protocol Stop: 09/13/18 22:01 Last Admin: 09/13/18 10:31 Dose: 100 mls/hr NOREPINEPHRINE BIT/0.9 % NACL (Levophed 4 Mg/ 250 Ml Ns Premixed) 4 mg in 250 mls @ 15 mls/hr IV .[id number] PRN; Protocol PRN Reason: TITRATE PER MD ORDER Last Titration: 09/13/18 10:29 Dose: 2 mcg/min, 7.5 mls/hr Fentanyl Citrate (Fentanyl Citrate/Sodium Chloride 1 Mg/100 Ml) 1,000 mcg in 100 mls @ 2 mls/hr IV .Q24H PRN; Protocol PRN Reason: TITRATE PER MD ORDER Last Admin: 09/13/18 11:52 Dose: 160 mcg/hr, 16 mls/hr Dobutamine HCl/Dextrose (Dobutamine/Dextrose 5% 500mg/250ml) 500 mg in 250 mls @ 10.274 mls/hr IV .Q24H PRN; Protocol PRN Reason: TITRATE PER PROTOCOL Last Admin: 09/13/18 10:32 Dose: 5 mcg/kg/min, 10.274 mls/hr Dexmedetomidine HCl (Precedex 400mcg/100ml) 400 mcg in 100 mls @ 3.425 mls/hr IV .Q24H PRN; Protocol PRN Reason: Agitation Last Titration: 09/13/18 13:01 Dose: 1 mcg/kg/hr, 17.123 mls/hr Micafungin Sodium 100 mg/ (Sodium Chloride) 100 mls @ 100 mls/hr IV DAILY [facility]; Protocol Stop: 09/20/18 14:46 Levalbuterol HCl (Xopenex) 0.63 mg IH [id number] [facility] Last Admin: 09/13/18 13:10 Dose: 0.63 mg Methylprednisolone (Solu-Medrol) 20 mg IVP Q12 [facility] Last Admin: 09/13/18 10:26 Dose: 20 mg Metoprolol Tartrate (Lopressor) 5 mg IVP Q6 [facility] Last Admin: 09/13/18 06:02 Dose: Not Given Midodrine (Proamatine) 7.5 mg PO TID [facility] Last Admin: 09/13/18 10:31 Dose: 7.5 mg Multi-Ingredient Ointment (Hydrophor Oint) 0 gm TOP Q6H [facility] Nicotine (Nicoderm Cq) 1 patch TD DAILY [facility] Last Admin: 09/13/18 10:33 Dose: 1 patch Nystatin (Mycostatin Cream) 0 ea TOP TID [facility] Last Admin: 09/13/18 10:35 Dose: 1 cre Ondansetron HCl (Zofran Inj) 4 mg IVP Q4H PRN PRN Reason: Nausea/Vomiting Pantoprazole Sodium (Protonix Inj) 40 mg IVP DAILY [facility] Last Admin: 09/13/18 10:28 Dose: 40 mg Polyethylene Glycol (Miralax) 17 gm PO DAILY [facility] Last Admin: 09/13/18 10:31 Dose: 17 gm Sodium Hypochlorite (Dakins Solution 0.25%) 0 ml TOP DAILY [facility] Last Admin: 09/12/18 09:31 Dose: 1 applic - Labs Labs: 09/13/18 06:00 09/13/18 06:00 PT 12.8 SECONDS (9.4-12.5) H 09/10/18 10:20 INR 1.13 09/10/18 10:20 APTT 23.0 Seconds (26.9-38.3) L 09/10/18 10:20 - Constitutional Appears: Chronically Ill, Other (intubated) - Head Exam Head Exam: NORMAL INSPECTION - ENT Exam Additional comments: ET tube in place - Neck Exam Additional comments: right IJ TLC in place - Respiratory Exam Respiratory Exam: Decreased Breath Sounds - Cardiovascular Exam Cardiovascular Exam: +S1, +S2 - GI/Abdominal Exam GI & Abdominal Exam: Soft. absent: Tenderness Assessment and Plan - Assessment and Plan (Free Text) Plan: Assessment severe sepsis / S/P shock now again with ventilator-dependent respiratory failure and acute renal failure due to probable right lower lobe hospital- acquired pneumonia, with bilateral pleural effusions S/P right sided thoracentesis, now again with left hemithorax opacification with mucus plugging S/P bronchoscopy and removal of mucus plugs Infected left lower extremity wounds, R/O osteomyelitis, grew MRSA chronic back pain vertebral disc disease venous stasis dermatitis Plan we have discontinued Zyvox because of low platelets (multifoactorial cause) and will continue intermittent Vancomycin IV and will also continue Merrem (day 7 of antibiotics from time of bronchoscopy) - repeat blood cx are negative, sputum cx (from sample taken from bronchoscopy 5 days ago) showing C. tropicalis which is probably colonization; Vancomycin will also cover the MRSA in the foot discussed with Dr. Webber - concerned about fungal infection, will start Mycamine and will repeat blood cx mucus plugs were noted and removed during bronchoscopy 09/06/2018 awaiting MRI of the foot but patient is critically ill currently patient had thoracentesis previously on the right and fluid looks to be transudative patient is for tracheostomy tomorrow discussed with Dr. Lloyd - no surgery for the foot for now will continue to follow clinically continue to monitor platelet count overall prognosis is poor
[2018-09-13] MEDS ORDERED: Micafungin 100 MG in Sodium Chloride 0.9% 100 ML IV SCH (14:45)
[2018-09-13] MEDS: Petrolatum-Mineral Oil Oint (100gm) TOP SCH ×2 (15:16→22:49)
--- NOTE | 2018-09-13 17:19 | PN ---
DATE: 09/13/2018 CARDIOLOGY FOLLOWUP SUBJECTIVE: The patient remains on a ventilator. PHYSICAL EXAMINATION: VITAL SIGNS: Blood pressure is 135/62, heart rate is 110. NECK: Negative JVD. LUNGS: Decreased breath sounds. HEART: Reveals S1, S2. EXTREMITIES: Without change. LABORATORY: Hemoglobin is 8.9. Chemistries: BUN and creatinine is 104 and 1.4. IMPRESSION: 1. Respiratory failure. 2. Dilated RV. 3. Pleural effusions. 4. Diabetes mellitus. 5. Marked prerenal azotemia. Given these findings, I have no objection to a trial of dobutamine although I do not feel it will necessarily help. We will talk to the intensive about decreasing the diuretics. Jero Salamanca MD
[2018-09-14] MEDS: Dexmedetomidine 400mcg/100mL 400 MCG/100 ML BOTTLE IV PRN ×3 (00:56→12:31)
[2018-09-14] MEDS: Fentanyl 1000mcg/100ml NS 1,000 MCG/100 ML BAG IV PRN ×2 (01:00→09:44)
[2018-09-14] MEDS: Levalbuterol 0.63 MG/3 ML Inhal Soln UD IH SCH ×3 (01:37→13:13)
[2018-09-14] MEDS: Metoprolol 1 mg/ml Inj IVP SCH ×2 (01:53→05:53)
[2018-09-14] MEDS: Petrolatum-Mineral Oil Oint (100gm) TOP SCH (02:45)
[2018-09-14 05:36] LABS: ARTERIAL BLOOD GAS HCO3 33.1 mmol/L (21-28); ARTERIAL BLOOD GAS HEMOGLOBIN 8.2 g/dL (11.7-17.4); ARTERIAL BLOOD GAS O2 CAPACITY 11.2 mL/dl (16-24); ARTERIAL BLOOD GAS O2 CONTENT 10.3 ML/dl (15-23); ARTERIAL BLOOD GAS O2 SAT 92.2 % (95-98); ARTERIAL BLOOD GAS PCO2 51 mm/Hg (35-45); ARTERIAL BLOOD GAS PH 7.42 (7.35-7.45); ARTERIAL BLOOD GAS TCO2 34.7 mmol.L (22-28)
[2018-09-14 05:52] VITALS: TEMP 97.4
[2018-09-14] MEDS: Budesonide 0.5 mg/2 ml Inhal Susp UD IH SCH (07:28)
[2018-09-14 07:36] VITALS: RESP 21
[2018-09-14 07:49] LABS: BASO # 0.12 K/mm3 (0.0-2.0); BASO % 0.9 % (0.0-3.0); EOS # 0.1 (0.0-0.7); EOS % 0.6 % (1.5-5.0); HEMOGLOBIN 9.2 g/dL (14.0-18.0); LYMPH % 8.2 % (22.0-35.0); MEAN CELL VOLUME 93.6 fl (80.0-105.0); MEAN CORPUSCULAR HEMOGLOBIN 26.7 pg (25.0-35.0); MEAN CORPUSCULAR HGB CONC 28.6 g/dl (31.0-37.0); MEAN PLATELET VOLUME 11.8 fl (7.0-11.0); MONO # 0.3 (0.1-0.6); MONO % 2.4 % (1.0-6.0); RBC 3.44 10^6/uL (3.5-6.1); RED CELL DISTRIBUTION WIDTH 16.6 % (11.5-14.5); WHITE BLOOD COUNT 12.7 10^3/uL (4.5-11.0)
[2018-09-14 07:57] LABS: INR 1.11; PROTHROMBIN TIME 12.5 SECONDS (9.4-12.5)
[2018-09-14 08:08] LABS: ALB/GLOB RATIO 0.7 (1.1-1.8); ALBUMIN 2.4 g/dL (3.0-4.8); ALT/SGPT 37 U/L (7-56); AST/SGOT 27 U/L (17-59); BLOOD UREA NITROGEN 107 mg/dL (7-21); CALCIUM 8.6 mg/dL (8.4-10.5); GFR NON-AFRICAN AMERICAN 50
[2018-09-14] MEDS ORDERED: Insulin Regular 1 UNITS/0.01 ML ML IV ONE (09:38)
--- NOTE | 2018-09-14 11:53 | PN ---
DATE: 09/14/2018 PULMONARY NOTE SUBJECTIVE: The patient remains on the ventilator. He is awake and alert. He does appear comfortable on the ventilator. PHYSICAL EXAMINATION: VITAL SIGNS: Temperature is 97.4, pulse 61, respirations 22/20, blood pressure last recorded 86/42. HEENT: Normocephalic, atraumatic. No JVD. CARDIOVASCULAR: Systolic ejection murmur at the lower left sternal border. Positive S3 gallop. LUNGS: Decreased breath sounds at the bases with crackles. Less rhonchi. No wheezing. GI: Abdomen is soft, nontender and nondistended. Bowel sounds are positive. EXTREMITIES: Mild edema. No cyanosis, no clubbing. Calves are nontender to palpation. SKIN: Positive decubitus ulcers. Positive bilateral lower extremity ulcers. No rashes. NEUROLOGIC: Exam limited at the present time. PERTINENT LABORATORY DATA: Chest x-ray was done this morning and reviewed. The right lung actually looks somewhat improved compared to previous films, however, there is now a diffuse left lung infiltrate. Arterial blood gas was done on PRVC 20, tidal volume 380, FIO2 80%, PEEP of 10. Results are: PH 7.42, pCO2 of 51, pO2 of 51. IMPRESSION: 1. Respiratory failure. 2. Recurrent atelectasis - left lung. 3. Congestive heart failure. 4. Bilateral pleural effusions. 5. Bilateral infiltrates. 6. Chronic obstructive pulmonary disease. 7. Renal insufficiency. PLAN: The patient remains intubated. He appears awake and alert on the ventilator. He appears comfortable. I did discuss the case with the night nurse at length. The night nurse stated the patient had an uneventful night, but confirms that the patient is not doing well overall. I did review the chest x-ray from this morning. Findings are noted above. Official results are pending. I have also reviewed the arterial blood gas. There is now normalization of the pH, however, there remains a significant/increasing alveolar-arterial gradient. We will increase the FIO2 this morning. I did speak with surgical team yesterday. The patient is tentatively scheduled for tracheostomy later this morning. On physical exam, there is actually less bronchospasm noted. I will continue the current nebulizer treatments and low-dose intravenous steroids for now. I would continue with the antibiotic coverage as per Infectious Disease. Temperatures have resolved. Repeat a.m. labs are pending. Inputs by Cardiology and Renal are also noted. The patient remains critically ill with very guarded/poor prognosis. He may need transfer to an LTAC institution. I will discuss the above with the entire ICU team in the next few moments. I will also discuss the above with the attending physician later this morning. Mike Mahmood MD
[2018-09-14] MEDS ORDERED: Bupivacaine 0.5% 50 ML IJ ONE (12:03)
--- NOTE | 2018-09-14 12:09 | CP.PCM.PN ---
Subjective - Date & Time of Evaluation Date of Evaluation: 09/14/18 Time of Evaluation: 12:01 - Subjective Subjective: renal progress note no events overnight. pt unable to provide ROS as he is mechanically ventilated pt intubated. planned for trach vitals reviewed. pt intubated. on FiO2 80% and PEEP 15 gen: nad sclera: anicteric op: normal neck: supple cv: +S1+s2 tachycardic lungs: coarse bs b/l and reduced at bases abds: soft nt ext: no edema neuro: follows commands no focal deficit psych: unable : kidney bladder not palpable. has aguirre. no obvious scortal edema work up: UA neg for protein renal imaging WNL Assessment FRANCES/ATN/sepsis syndrome/acute hypoxic hypercapnic resp failure/hyponatremia /hypokalemia smoker, COPD moderate to severe pulm HTN with RV dysfunction peripheral eosinophilia pneumonia/CHF ? ARDS Mild hypernatremia and hyperkalemia Plan frances likely 2/2 to shock/atn. Cr stable, remains non-oliguric. Continue supportive measures. continue with diuretics to help optimize his respi status no need of acute need for renal replacement therapy initiation at this time. Maintain hemodynamics stable. Avoid hypotension. Patient not on ACEI/ARB due to recent FRANCES. may give IV albumin if needed for low BP. pt on IV inotropes Monitor Input/Output, daily weights and renal function with basic metabolic panel Dose meds/antibiotics for reduced GFR. Avoid fleets enema/magnesium based laxatives. Avoid nephrotoxins/NSAIDs/ iodinated contrast (unless needed emergently) Glycemic control Further work up/management as per primary team Thanks for allowing me to participate in care of your patient. Will follow patient with you. Please call if any Qs. had d/w team Dr Allan Blackburn Office: [phone] Objective - Vital Signs/Intake and Output Vital Signs (last 24 hours): Temp Pulse Resp BP Pulse Ox 97.4 F L 58 L 21 110/47 L 96 09/14/18 05:00 09/14/18 08:00 09/14/18 07:35 09/14/18 08:00 09/14/18 08:00 Intake and Output: 09/14/18 09/14/18 06:59 18:59 Intake Total 1490 225 Output Total 800 Balance 690 225 - Medications Medications: Current Medications Acetaminophen (Tylenol 325mg Tab) 650 mg PO Q6 PRN PRN Reason: TEMP>=99.5F Last Admin: 09/03/18 13:54 Dose: 650 mg Budesonide (Pulmicort Respules) 0.5 mg IH [id number] [facility] Last Admin: 09/14/18 07:28 Dose: 0.5 mg Collagenase (Santyl) 0 gm TOP DAILY [facility] Last Admin: 09/13/18 10:35 Dose: 1 appl Ergocalciferol (Drisdol 50,000 Intl Units Cap) 1 cap PO Q7D [facility] Last Admin: 09/09/18 15:56 Dose: 1 cap Folic Acid (Folic Acid) 1 mg PO DAILY [facility] Last Admin: 09/13/18 10:31 Dose: 1 mg Furosemide (Lasix) 60 mg IVP Q12 [facility] Last Admin: 09/13/18 22:29 Dose: 60 mg NOREPINEPHRINE BIT/0.9 % NACL (Levophed 4 Mg/ 250 Ml Ns Premixed) 4 mg in 250 mls @ 15 mls/hr IV .[id number] PRN; Protocol PRN Reason: TITRATE PER MD ORDER Last Titration: 09/14/18 07:24 Dose: 2 mcg/min, 7.5 mls/hr Fentanyl Citrate (Fentanyl Citrate/Sodium Chloride 1 Mg/100 Ml) 1,000 mcg in 100 mls @ 2 mls/hr IV .Q24H PRN; Protocol PRN Reason: TITRATE PER MD ORDER Last Admin: 09/14/18 09:44 Dose: 200 mcg/hr, 20 mls/hr Dobutamine HCl/Dextrose (Dobutamine/Dextrose 5% 500mg/250ml) 500 mg in 250 mls @ 10.274 mls/hr IV .Q24H PRN; Protocol PRN Reason: TITRATE PER PROTOCOL Last Admin: 09/13/18 10:32 Dose: 5 mcg/kg/min, 10.274 mls/hr Dexmedetomidine HCl (Precedex 400mcg/100ml) 400 mcg in 100 mls @ 3.425 mls/hr IV .Q24H PRN; Protocol PRN Reason: Agitation Last Titration: 09/14/18 11:35 Dose: 1.5 mcg/kg/hr, 25.685 mls/hr Micafungin Sodium 100 mg/ (Sodium Chloride) 100 mls @ 100 mls/hr IV DAILY [facility]; Protocol Stop: 09/20/18 14:46 Last Admin: 09/13/18 15:20 Dose: 100 mls/hr Levalbuterol HCl (Xopenex) 0.63 mg IH [id number] [facility] Last Admin: 09/14/18 07:28 Dose: 0.63 mg Methylprednisolone (Solu-Medrol) 20 mg IVP Q12 [facility] Last Admin: 09/13/18 22:32 Dose: 20 mg Midodrine (Proamatine) 7.5 mg PO TID [facility] Last Admin: 09/13/18 18:39 Dose: 7.5 mg Multi-Ingredient Ointment (Hydrophor Oint) 0 gm TOP Q6H [facility] Last Admin: 09/14/18 02:45 Dose: 1 dose Nicotine (Nicoderm Cq) 1 patch TD DAILY [facility] Last Admin: 09/13/18 10:33 Dose: 1 patch Nystatin (Mycostatin Cream) 0 ea TOP TID [facility] Last Admin: 09/13/18 18:33 Dose: 1 cre Ondansetron HCl (Zofran Inj) 4 mg IVP Q4H PRN PRN Reason: Nausea/Vomiting Pantoprazole Sodium (Protonix Inj) 40 mg IVP DAILY [facility] Last Admin: 09/13/18 10:28 Dose: 40 mg Polyethylene Glycol (Miralax) 17 gm PO DAILY [facility] Last Admin: 09/13/18 10:31 Dose: 17 gm Sodium Hypochlorite (Dakins Solution 0.25%) 0 ml TOP DAILY [facility] Last Admin: 09/12/18 09:31 Dose: 1 applic - Labs Labs: 09/14/18 07:30 09/14/18 07:30 PT 12.5 SECONDS (9.4-12.5) 09/14/18 07:30 INR 1.11 09/14/18 07:30 APTT 23.0 Seconds (26.9-38.3) L 09/10/18 10:20
--- NOTE | 2018-09-14 12:31 | CP.PCM.PN ---
<Kulwant Mathews - Last Filed: 09/14/18 12:28> Subjective - Date & Time of Evaluation Date of Evaluation: 09/14/18 Time of Evaluation: 12:28 - Subjective Subjective: Podiatry progress note: Dr. Lloyd: 68 y/o M patient seen and evaluated in ICU for b/l ulcerations. Patient is artificially ventilated but communicate through head movement. As per patient charts, no acute overnight events. Patient didn't have overnight F/N/V or C. Objective - Vital Signs/Intake and Output Vital Signs (last 24 hours): Temp Pulse Resp BP Pulse Ox 97.4 F L 58 L 21 110/47 L 96 09/14/18 05:00 09/14/18 08:00 09/14/18 07:35 09/14/18 08:00 09/14/18 08:00 Intake and Output: 09/14/18 09/14/18 06:59 18:59 Intake Total 1490 225 Output Total 800 Balance 690 225 - Medications Medications: Current Medications Acetaminophen (Tylenol 325mg Tab) 650 mg PO Q6 PRN PRN Reason: TEMP>=99.5F Last Admin: 09/03/18 13:54 Dose: 650 mg Budesonide (Pulmicort Respules) 0.5 mg IH [id number] [facility] Last Admin: 09/14/18 07:28 Dose: 0.5 mg Collagenase (Santyl) 0 gm TOP DAILY [facility] Last Admin: 09/13/18 10:35 Dose: 1 appl Ergocalciferol (Drisdol 50,000 Intl Units Cap) 1 cap PO Q7D [facility] Last Admin: 09/09/18 15:56 Dose: 1 cap Folic Acid (Folic Acid) 1 mg PO DAILY [facility] Last Admin: 09/13/18 10:31 Dose: 1 mg Furosemide (Lasix) 60 mg IVP Q12 [facility] Last Admin: 09/13/18 22:29 Dose: 60 mg NOREPINEPHRINE BIT/0.9 % NACL (Levophed 4 Mg/ 250 Ml Ns Premixed) 4 mg in 250 mls @ 15 mls/hr IV .[id number] PRN; Protocol PRN Reason: TITRATE PER MD ORDER Last Titration: 09/14/18 07:24 Dose: 2 mcg/min, 7.5 mls/hr Fentanyl Citrate (Fentanyl Citrate/Sodium Chloride 1 Mg/100 Ml) 1,000 mcg in 100 mls @ 2 mls/hr IV .Q24H PRN; Protocol PRN Reason: TITRATE PER MD ORDER Last Admin: 09/14/18 09:44 Dose: 200 mcg/hr, 20 mls/hr Dobutamine HCl/Dextrose (Dobutamine/Dextrose 5% 500mg/250ml) 500 mg in 250 mls @ 10.274 mls/hr IV .Q24H PRN; Protocol PRN Reason: TITRATE PER PROTOCOL Last Admin: 09/13/18 10:32 Dose: 5 mcg/kg/min, 10.274 mls/hr Dexmedetomidine HCl (Precedex 400mcg/100ml) 400 mcg in 100 mls @ 3.425 mls/hr IV .Q24H PRN; Protocol PRN Reason: Agitation Last Titration: 09/14/18 11:35 Dose: 1.5 mcg/kg/hr, 25.685 mls/hr Micafungin Sodium 100 mg/ (Sodium Chloride) 100 mls @ 100 mls/hr IV DAILY [facility]; Protocol Stop: 09/20/18 14:46 Last Admin: 09/13/18 15:20 Dose: 100 mls/hr Levalbuterol HCl (Xopenex) 0.63 mg IH [id number] [facility] Last Admin: 09/14/18 07:28 Dose: 0.63 mg Methylprednisolone (Solu-Medrol) 20 mg IVP Q12 [facility] Last Admin: 09/13/18 22:32 Dose: 20 mg Midodrine (Proamatine) 7.5 mg PO TID [facility] Last Admin: 09/13/18 18:39 Dose: 7.5 mg Multi-Ingredient Ointment (Hydrophor Oint) 0 gm TOP Q6H [facility] Last Admin: 09/14/18 02:45 Dose: 1 dose Nicotine (Nicoderm Cq) 1 patch TD DAILY [facility] Last Admin: 09/13/18 10:33 Dose: 1 patch Nystatin (Mycostatin Cream) 0 ea TOP TID [facility] Last Admin: 09/13/18 18:33 Dose: 1 cre Ondansetron HCl (Zofran Inj) 4 mg IVP Q4H PRN PRN Reason: Nausea/Vomiting Pantoprazole Sodium (Protonix Inj) 40 mg IVP DAILY [facility] Last Admin: 09/13/18 10:28 Dose: 40 mg Polyethylene Glycol (Miralax) 17 gm PO DAILY [facility] Last Admin: 09/13/18 10:31 Dose: 17 gm Sodium Hypochlorite (Dakins Solution 0.25%) 0 ml TOP DAILY [facility] Last Admin: 09/12/18 09:31 Dose: 1 applic - Labs Labs: 09/14/18 07:30 09/14/18 07:30 PT 12.5 SECONDS (9.4-12.5) 09/14/18 07:30 INR 1.11 09/14/18 07:30 APTT 23.0 Seconds (26.9-38.3) L 09/10/18 10:20 - Head Exam Head Exam: ATRAUMATIC - Extremities Exam Additional comments: B/L lE focused exam: VASC: DP/PT non-palpable, Temp gradient warm to warm bilaterally, Lymphedema noted bilaterally (improving), non-pitting. Cap refill < 3 sec to all digits. NEURO: grossly intact b/l. DERM: LEFT- 0.4 cm X 0.4 cm wound noted to submetatarsal 1 head, significantly improving, fibrotic base, no drainage, no tunneling, tracking or probe to bone, no malodor, multiple superficial wounds noted to the lateral aspect of the left ankle with 100% granular skin base, no drainage, no probe to bone, no tunneling or tracking, no malodor, chronic skin trophic changes secondary to long standing peripheral vascular disease, no signs of infection noted clinically. Improving. RIGHT- Superficial wound noted to the lateral aspect of the leg at the site of previous chronic skin trophic changes secondary to long standing peripheral vascular disease, wound base 100% granular, Mild sanguineous drainage, mild malodor, no tunneling, tracking or probe to bone. Improving. MSK: Muscle power and pain level couldn't be assessed as patient is sedated, intubated and ventilated. - Neurological Exam Additional comments: Patient is artificially ventilated and intubated but communicate through head movement. Assessment and Plan - Assessment and Plan (Free Text) Assessment: 68 y/o male patient with bilateral lower extremity wounds, significantly improving Plan: Patient seen and evaluated Plan discussed with Dr. Lloyd. Chars, Labs and vitals reviewed; Afebrile, WBC 12.7 Bilateral foot x-ray ordered; No evidence of OM Patient refused CT and MRI before. ID on board Reccs appreciated. continue IV as per ID Left foot wound cultures: MRSA, Morg roxanneanii B/L LE wounds left open to air. Optifoam applied to the Right lateral leg ulcer. and Aquaphor to b/l LE.. Continue Aquaphor to the B/L LE for dryness. Continue wearing Multipodus boots in bed. No podiatric intervention planned at this time, in our clinical judgement no evidence of OM, however, cannot be confirmed as patient has refused both MRI/CT Patient likely to be transferred to a terminal operations manager care facility Podiatry will continue to follow up the patient while in house <Kvng Lloyd - Last Filed: 09/14/18 13:05> Objective - Vital Signs/Intake and Output Vital Signs (last 24 hours): Temp Pulse Resp BP Pulse Ox 97.4 F L 58 L 21 110/47 L 96 09/14/18 05:00 09/14/18 08:00 09/14/18 07:35 09/14/18 08:00 09/14/18 08:00 Intake and Output: 09/14/18 09/14/18 06:59 18:59 Intake Total 1490 275 Output Total 800 Balance 690 275 - Medications Medications: Current Medications Acetaminophen (Tylenol 325mg Tab) 650 mg PO Q6 PRN PRN Reason: TEMP>=99.5F Last Admin: 09/03/18 13:54 Dose: 650 mg Budesonide (Pulmicort Respules) 0.5 mg IH [id number] [facility] Last Admin: 09/14/18 07:28 Dose: 0.5 mg Collagenase (Santyl) 0 gm TOP DAILY [facility] Last Admin: 09/13/18 10:35 Dose: 1 appl Ergocalciferol (Drisdol 50,000 Intl Units Cap) 1 cap PO Q7D [facility] Last Admin: 09/09/18 15:56 Dose: 1 cap Folic Acid (Folic Acid) 1 mg PO DAILY [facility] Last Admin: 09/13/18 10:31 Dose: 1 mg Furosemide (Lasix) 60 mg IVP Q12 [facility] Last Admin: 09/13/18 22:29 Dose: 60 mg NOREPINEPHRINE BIT/0.9 % NACL (Levophed 4 Mg/ 250 Ml Ns Premixed) 4 mg in 250 mls @ 15 mls/hr IV .[id number] PRN; Protocol PRN Reason: TITRATE PER MD ORDER Last Titration: 09/14/18 07:24 Dose: 2 mcg/min, 7.5 mls/hr Fentanyl Citrate (Fentanyl Citrate/Sodium Chloride 1 Mg/100 Ml) 1,000 mcg in 100 mls @ 2 mls/hr IV .Q24H PRN; Protocol PRN Reason: TITRATE PER MD ORDER Last Admin: 09/14/18 09:44 Dose: 200 mcg/hr, 20 mls/hr Dobutamine HCl/Dextrose (Dobutamine/Dextrose 5% 500mg/250ml) 500 mg in 250 mls @ 10.274 mls/hr IV .Q24H PRN; Protocol PRN Reason: TITRATE PER PROTOCOL Last Admin: 09/13/18 10:32 Dose: 5 mcg/kg/min, 10.274 mls/hr Dexmedetomidine HCl (Precedex 400mcg/100ml) 400 mcg in 100 mls @ 3.425 mls/hr IV .Q24H PRN; Protocol PRN Reason: Agitation Last Admin: 09/14/18 12:31 Dose: 1.5 mcg/kg/hr, 25.685 mls/hr Micafungin Sodium 100 mg/ (Sodium Chloride) 100 mls @ 100 mls/hr IV DAILY [facility]; Protocol Stop: 09/20/18 14:46 Last Admin: 09/13/18 15:20 Dose: 100 mls/hr Levalbuterol HCl (Xopenex) 0.63 mg IH [id number] [facility] Last Admin: 09/14/18 07:28 Dose: 0.63 mg Methylprednisolone (Solu-Medrol) 20 mg IVP Q12 [facility] Last Admin: 09/13/18 22:32 Dose: 20 mg Midodrine (Proamatine) 7.5 mg PO TID [facility] Last Admin: 09/13/18 18:39 Dose: 7.5 mg Multi-Ingredient Ointment (Hydrophor Oint) 0 gm TOP Q6H [facility] Last Admin: 09/14/18 02:45 Dose: 1 dose Nicotine (Nicoderm Cq) 1 patch TD DAILY [facility] Last Admin: 09/13/18 10:33 Dose: 1 patch Nystatin (Mycostatin Cream) 0 ea TOP TID [facility] Last Admin: 09/13/18 18:33 Dose: 1 cre Ondansetron HCl (Zofran Inj) 4 mg IVP Q4H PRN PRN Reason: Nausea/Vomiting Pantoprazole Sodium (Protonix Inj) 40 mg IVP DAILY [facility] Last Admin: 09/13/18 10:28 Dose: 40 mg Polyethylene Glycol (Miralax) 17 gm PO DAILY [facility] Last Admin: 09/13/18 10:31 Dose: 17 gm Sodium Hypochlorite (Dakins Solution 0.25%) 0 ml TOP DAILY [facility] Last Admin: 09/12/18 09:31 Dose: 1 applic - Labs Labs: 09/14/18 07:30 09/14/18 07:30 PT 12.5 SECONDS (9.4-12.5) 09/14/18 07:30 INR 1.11 09/14/18 07:30 APTT 23.0 Seconds (26.9-38.3) L 09/10/18 10:20 Attending/Attestation - Attestation I have personally seen and examined this patient.: Yes I have fully participated in the care of the patient.: Yes I have reviewed all pertinent clinical information, including history, physical exam and plan: Yes
--- NOTE | 2018-09-14 12:47 | CP.PCM.PCO ---
Physician Communication Note - Physician Communication Note Physician Communication Note: Trach today
--- NOTE | 2018-09-14 13:11 | CP.PCM.PN ---
Subjective - Date & Time of Evaluation Date of Evaluation: 09/14/18 Time of Evaluation: 09:55 - Subjective Subjective: Patient continues to be on the ventilator, no fevers, for tracheostomy today. Objective - Vital Signs/Intake and Output Vital Signs (last 24 hours): Temp Pulse Resp BP Pulse Ox 97.4 F L 118 H 24 127/50 L 92 L 09/13/18 11:35 09/13/18 13:01 09/12/18 05:42 09/13/18 13:01 09/13/18 13:01 Intake and Output: 09/13/18 09/13/18 06:59 18:59 Intake Total 2622 255 Output Total 350 Balance 2272 255 - Medications Medications: Current Medications Acetaminophen (Tylenol 325mg Tab) 650 mg PO Q6 PRN PRN Reason: TEMP>=99.5F Last Admin: 09/03/18 13:54 Dose: 650 mg Budesonide (Pulmicort Respules) 0.5 mg IH [id number] [facility] Last Admin: 09/13/18 08:08 Dose: 0.5 mg Collagenase (Santyl) 0 gm TOP DAILY [facility] Last Admin: 09/13/18 10:35 Dose: 1 appl Ergocalciferol (Drisdol 50,000 Intl Units Cap) 1 cap PO Q7D [facility] Last Admin: 09/09/18 15:56 Dose: 1 cap Folic Acid (Folic Acid) 1 mg PO DAILY [facility] Last Admin: 09/13/18 10:31 Dose: 1 mg Furosemide (Lasix) 60 mg IVP Q12 [facility] Last Admin: 09/13/18 10:25 Dose: 60 mg Meropenem/Sodium Chloride (Merrem Iv 500 Mg/Ns 50 Ml) 500 mg in 50 mls @ 100 mls/hr IVPB Q12 [facility]; Protocol Stop: 09/13/18 22:01 Last Admin: 09/13/18 10:31 Dose: 100 mls/hr NOREPINEPHRINE BIT/0.9 % NACL (Levophed 4 Mg/ 250 Ml Ns Premixed) 4 mg in 250 mls @ 15 mls/hr IV .[id number] PRN; Protocol PRN Reason: TITRATE PER MD ORDER Last Titration: 09/13/18 10:29 Dose: 2 mcg/min, 7.5 mls/hr Fentanyl Citrate (Fentanyl Citrate/Sodium Chloride 1 Mg/100 Ml) 1,000 mcg in 100 mls @ 2 mls/hr IV .Q24H PRN; Protocol PRN Reason: TITRATE PER MD ORDER Last Admin: 09/13/18 11:52 Dose: 160 mcg/hr, 16 mls/hr Dobutamine HCl/Dextrose (Dobutamine/Dextrose 5% 500mg/250ml) 500 mg in 250 mls @ 10.274 mls/hr IV .Q24H PRN; Protocol PRN Reason: TITRATE PER PROTOCOL Last Admin: 09/13/18 10:32 Dose: 5 mcg/kg/min, 10.274 mls/hr Dexmedetomidine HCl (Precedex 400mcg/100ml) 400 mcg in 100 mls @ 3.425 mls/hr IV .Q24H PRN; Protocol PRN Reason: Agitation Last Titration: 09/13/18 13:01 Dose: 1 mcg/kg/hr, 17.123 mls/hr Micafungin Sodium 100 mg/ (Sodium Chloride) 100 mls @ 100 mls/hr IV DAILY [facility]; Protocol Stop: 09/20/18 14:46 Levalbuterol HCl (Xopenex) 0.63 mg IH [id number] [facility] Last Admin: 09/13/18 13:10 Dose: 0.63 mg Methylprednisolone (Solu-Medrol) 20 mg IVP Q12 [facility] Last Admin: 09/13/18 10:26 Dose: 20 mg Metoprolol Tartrate (Lopressor) 5 mg IVP Q6 [facility] Last Admin: 09/13/18 06:02 Dose: Not Given Midodrine (Proamatine) 7.5 mg PO TID [facility] Last Admin: 09/13/18 10:31 Dose: 7.5 mg Multi-Ingredient Ointment (Hydrophor Oint) 0 gm TOP Q6H [facility] Nicotine (Nicoderm Cq) 1 patch TD DAILY [facility] Last Admin: 09/13/18 10:33 Dose: 1 patch Nystatin (Mycostatin Cream) 0 ea TOP TID [facility] Last Admin: 09/13/18 10:35 Dose: 1 cre Ondansetron HCl (Zofran Inj) 4 mg IVP Q4H PRN PRN Reason: Nausea/Vomiting Pantoprazole Sodium (Protonix Inj) 40 mg IVP DAILY [facility] Last Admin: 09/13/18 10:28 Dose: 40 mg Polyethylene Glycol (Miralax) 17 gm PO DAILY [facility] Last Admin: 09/13/18 10:31 Dose: 17 gm Sodium Hypochlorite (Dakins Solution 0.25%) 0 ml TOP DAILY [facility] Last Admin: 09/12/18 09:31 Dose: 1 applic - Labs Labs: 09/13/18 06:00 09/13/18 06:00 PT 12.8 SECONDS (9.4-12.5) H 09/10/18 10:20 INR 1.13 09/10/18 10:20 APTT 23.0 Seconds (26.9-38.3) L 09/10/18 10:20 - Constitutional Appears: Chronically Ill, Other (intubated and sedated) - Head Exam Head Exam: NORMAL INSPECTION - ENT Exam Additional comments: ET tube in place - Neck Exam Additional comments: right IJ TLC in place - Respiratory Exam Respiratory Exam: Decreased Breath Sounds - Cardiovascular Exam Cardiovascular Exam: +S1, +S2 - GI/Abdominal Exam GI & Abdominal Exam: Soft. absent: Tenderness - Extremities Exam Additional comments: both feet with dressings in place Assessment and Plan - Assessment and Plan (Free Text) Plan: Assessment severe sepsis / S/P shock now again with ventilator-dependent respiratory failure and acute renal failure due to probable right lower lobe hospital- acquired pneumonia, with bilateral pleural effusions S/P right sided thoracentesis, now again with left hemithorax opacification with mucus plugging S/P bronchoscopy and removal of mucus plugs Infected left lower extremity wounds, R/O osteomyelitis, grew MRSA chronic back pain vertebral disc disease venous stasis dermatitis Plan we have discontinued Zyvox because of low platelets (multifoactorial cause) and will continue intermittent Vancomycin IV and will also continue Merrem (day 8 of antibiotics from time of bronchoscopy) - repeat blood cx are negative, sputum cx (from sample taken from bronchoscopy) showing C. tropicalis which is probably colonization; Vancomycin will also cover the MRSA in the foot discussed with Dr. Webber - concerned about fungal infection, will continue Mycamine day 2 and will repeat blood cx (taken 09/13/2018) mucus plugs were noted and removed during bronchoscopy 09/06/2018 awaiting MRI of the foot but patient is critically ill currently patient had thoracentesis previously on the right and fluid looks to be transudative patient is for tracheostomy tomorrow discussed with Dr. Lloyd - yemi surgery for the foot for now will continue to follow clinically continue to monitor platelet count (currently normalized) patient for tracheostomy today overall prognosis is poor
--- NOTE | 2018-09-14 13:23 | PN ---
DATE: 09/14/2018 SUBJECTIVE: The patient is in [facility], Critical Care unit, room 128, bed 4. The patient was transferred from the medical floor to this ICU because he went into respiratory failure. The patient had underlying diagnoses of chronic lung disease, pneumonia, pleural effusion, collapse of the left lung. The patient also has past history of hypertension. The patient is a smoker. The patient is hypotensive. The patient is dependent on the respirator at this time. The patient is waiting for tracheotomy to be performed today by Dr. Jung Harvey, general surgeon. The patient's vital signs this morning, pulse is 58 and blood pressure 110/47, respirations are maintain by the respirator. The patient's blood gas study showing and the patient has hypercapnia and hypoxia. The patient is on high intensity oxygen therapy. The patient is going to have adjustment of the ventilation process today, because of the decompensation. In the meantime, we will prepare to have the tracheotomy performed. The patient's medications consist of dobutamine drip. The patient is on fentanyl for pain and respiratory management. The patient is on folic acid, vitamin B1 and Lasix. The patient is on Levophed and metoprolol. The patient is also getting nicotine patch for withdrawal from nicotine. The patient is on ProAmatine for stabilization of blood pressure. Pantoprazole 40 mg daily for the patient is being on the respirator and for hyperacidity and reflux. The patient's condition is overall poor. The prognosis is guarded. The patient is awaiting for the procedure to be performed today and then I have a feeling the patient is going to be a candidate for transfer to a long-term care facility for continued care. We will continue current management and follow up . Donovan Aleman MD
[2018-09-14 13:46] LABS: CALCIUM 8.4 mg/dL (8.4-10.5)
--- NOTE | 2018-09-14 13:50 | RAD ---
Date of service: 09/14/2018 HISTORY: Follow-up. COMPARISON: 09/12/2018, 09/13/2018 serial chest radiographs. FINDINGS: LUNGS: Improving pulmonary edema. PLEURA: Pleural effusions bilaterally inseparable from lower lobe infiltrates/edema. CARDIOVASCULAR: Atherosclerotic calcifications identified primarily aortic arch. Venous access catheter in stable, satisfactory position. No significant interval change compared to the prior examination(s). OSSEOUS STRUCTURES: No significant abnormalities. VISUALIZED UPPER ABDOMEN: Normal. OTHER FINDINGS: Stable position of endotracheal tube and nasogastric tube. The feeding tube tip is above the esophagogastric junction and should be advanced, recommendation stated previously IMPRESSION: Improving pulmonary edema. Satisfactory position of endotracheal tube. Stable position of venous access catheter. Suboptimally, poorly positioned nasogastric feeding tube.
[2018-09-14] MEDS ORDERED: Midazolam 2 MG/2 ML VIAL ONE (14:02)
--- NOTE | 2018-09-14 14:14 | CP.CCUPN ---
<Augusto Zimmerman - Last Filed: 09/14/18 14:09> CCU Subjective - Physician Review Subjective (Free Text): 09/14/18 14:09 Augusto Zimmerman, PGY-1 ICU Progress Note: Pt was seen and examined this AM by ICU team. Overnight the pt had no acute issues. Pt is on ventilator due to bronch 07/07. Today pt will remain intubated due to persistent CXR findings, will continue to monitor and attempt to wean when appropriate. ROS limited due to pt being intubated and sedated. Pt is planned for trach today. CCU Objective - Vital Signs / Intake & Output Intake and Output (Last 8hrs): Intake & Output 09/13/18 09/14/18 09/14/18 22:59 06:59 14:59 Intake Total 2050 1390 275 Output Total 1000 800 Balance 1050 590 275 Intake: IV 1510 1270 275 Right Internal Jugular 1160 970 Oral 540 0 Tube Feeding 120 Output: Urine 1000 800 Urethral (Abrams) 1000 800 Other: # Bowel Movements 300 0 - Physical Exam Head: Positive for: Atraumatic, Normocephalic Pupils: Positive for: PERRL Extroacular Muscles: Positive for: EOMI Conjunctiva: Positive for: Normal Mouth: Positive for: Moist Mucous Membranes Neck: Positive for: Normal Range of Motion Respiratory/Chest: Positive for: Decreased Breath Sounds (worse on R than L), Other (Pt is intubated and ETT in place.). Negative for: Respiratory Distress, Accessory Muscle Use, Wheezes, Rales, Rhonchi Cardiovascular: Positive for: Regular Rate and Rhythm, Normal S1, S2. Negative for: Murmurs Abdomen: Positive for: Normal Bowel Sounds. Negative for: Tenderness, Distention, Peritoneal Signs Back: Positive for: Decubitus Ulcer (Sacral) Upper Extremity: Positive for: Normal Inspection. Negative for: Cyanosis, Edema Lower Extremity: Positive for: Normal Inspection, Normal ROM, Other (2 large skin decubiti on the posterior thighs bilaterally, both infected with surrounding erythema) Neurological: Positive for: Other (Pt is intubated and sedated) Skin: Positive for: Warm, Dry, Normal Color. Negative for: Rashes Psychiatric: Positive for: Other (intubated and sedated) - Medications Active Medications: Active Medications Generic Name Dose Route Start Last Admin Trade Name Freq PRN Reason Stop Dose Admin Acetaminophen 650 mg 08/24/18 00:04 09/03/18 13:54 Tylenol 325mg Tab PO 650 mg Q6 PRN Administration TEMP>=99.5F Budesonide 0.5 mg 09/02/18 08:00 09/14/18 07:28 Pulmicort Respules IH 0.5 mg [id number] CASSY Administration Collagenase 0 gm 08/25/18 10:00 09/13/18 10:35 Santyl TOP 1 appl DAILY CASSY Administration Ergocalciferol 1 cap 08/26/18 15:00 09/09/18 15:56 Drisdol 50,000 Intl Units Cap PO 1 cap Q7D CASSY Administration Folic Acid 1 mg 08/26/18 15:00 09/13/18 10:31 Folic Acid PO 1 mg DAILY CASSY Administration Furosemide 60 mg 09/09/18 10:15 09/13/18 22:29 Lasix IVP 60 mg Q12 CASSY Administration NOREPINEPHRINE BIT/0.9 % NACL 4 mg in 250 mls @ 15 mls/hr 09/10/18 10:20 09/14/18 07:24 Levophed 4 Mg/ 250 Ml Ns Premixed IV 2 mcg/min .[id number] PRN 7.5 mls/hr TITRATE PER MD ORDER Titration Protocol 4 MCG/MIN Fentanyl Citrate 1,000 mcg in 100 mls @ 2 mls/hr 09/11/18 19:40 09/14/18 09:44 Fentanyl Citrate/Sodium Chloride 1 Mg/100 Ml IV 200 mcg/hr .Q24H PRN 20 mls/hr TITRATE PER MD ORDER Administration Protocol 20 MCG/HR Dobutamine HCl/Dextrose 500 mg in 250 mls @ 10.274 mls/hr 09/13/18 09:46 09/13/18 10:32 Dobutamine/Dextrose 5% 500mg/250ml IV 5 mcg/kg/min .Q24H PRN 10.274 mls/hr TITRATE PER PROTOCOL Administration Protocol 5 MCG/KG/MIN Dexmedetomidine HCl 400 mcg in 100 mls @ 3.425 mls/hr 09/13/18 09:56 09/14/18 12:31 Precedex 400mcg/100ml IV 1.5 mcg/kg/hr .Q24H PRN 25.685 mls/hr Agitation Administration Protocol 0.2 MCG/KG/HR Micafungin Sodium 100 mg/ 100 mls @ 100 mls/hr 09/13/18 14:45 09/13/18 15:20 Sodium Chloride IV 09/20/18 14:46 100 mls/hr DAILY CASSY Administration Protocol Levalbuterol HCl 0.63 mg 09/04/18 20:00 09/14/18 13:13 Xopenex IH 0.63 mg [id number] CASSY Administration Methylprednisolone 20 mg 09/13/18 10:30 09/13/18 22:32 Solu-Medrol IVP 20 mg Q12 CASSY Administration Midodrine 7.5 mg 09/13/18 10:00 09/13/18 18:39 Proamatine PO 7.5 mg TID CASSY Administration Multi-Ingredient Ointment 0 gm 09/13/18 14:15 09/14/18 02:45 Hydrophor Oint TOP 1 dose Q6H CASSY Administration Nicotine 1 patch 08/24/18 10:00 09/13/18 10:33 Nicoderm Cq TD 1 patch DAILY CASSY Administration Nystatin 0 ea 09/03/18 18:00 09/13/18 18:33 Mycostatin Cream TOP 1 cre TID CASSY Administration Ondansetron HCl 4 mg 08/24/18 00:04 Zofran Inj IVP Q4H PRN Nausea/Vomiting Pantoprazole Sodium 40 mg 09/02/18 10:00 09/13/18 10:28 Protonix Inj IVP 40 mg DAILY CASSY Administration Polyethylene Glycol 17 gm 08/31/18 10:00 09/13/18 10:31 Miralax PO 17 gm DAILY CASSY Administration Sodium Hypochlorite 0 ml 09/01/18 13:00 09/12/18 09:31 Dakins Solution 0.25% TOP 1 applic DAILY CASSY Administration - Patient Studies Lab Studies: Lab Studies 09/14/18 09/14/18 09/14/18 Range/Units 13:20 07:30 07:30 WBC (4.5-11.0) 10^3/uL RBC (3.5-6.1) 10^6/uL Hgb (14.0-18.0) g/dL Hct (42.0-52.0) % MCV (80.0-105.0) fl MCH (25.0-35.0) pg MCHC (31.0-37.0) g/dl RDW (11.5-14.5) % Plt Count (120.0-450.0) 10^3/uL MPV (7.0-11.0) fl Neut % (Auto) (50.0-68.0) % Lymph % (Auto) (22.0-35.0) % [place] % (Auto) (1.0-6.0) % Eos % (Auto) (1.5-5.0) % Baso % (Auto) (0.0-3.0) % Lymph # (Auto) (1.2-3.4) [place] # (Auto) (0.1-0.6) Eos # (Auto) (0.0-0.7) Baso # (Auto) (0.0-2.0) K/mm3 Absolute Neuts (auto) (1.4-6.5) PT 12.5 (9.4-12.5) SECONDS INR 1.11 pCO2 (35-45) mm/Hg pO2 (80-100) mm/Hg HCO3 (21-28) mmol/L ABG pH (7.35-7.45) ABG Total CO2 (22-28) mmol.L ABG O2 Saturation (95-98) % ABG O2 Content (15-23) ML/dl ABG Base Excess (-2.0-3.0) mmol/L ABG Hemoglobin (11.7-17.4) g/dL ABG Carboxyhemoglobin (0.5-1.5) % POC ABG HHb (Measured) (0-5) % ABG Methemoglobin (0.0-3.0) % ABG O2 Capacity (16-24) mL/dl Hgb O2 Saturation (95.0-98.0) % FiO2 % Sodium 148 147 (132-148) mmol/L Potassium 5.1 H 5.4 H (3.6-5.0) mmol/L Chloride 114 H 114 H (98-107) mmol/L Carbon Dioxide 34 H 34 H (21-33) mmol/L Anion Gap 5 L 4 L (10-20) BUN 106 H 107 H (7-21) mg/dL Creatinine 1.6 H 1.4 (0.8-1.5) mg/dl Est GFR ( Amer) 52 > 60 Est GFR (Non-Af Amer) 43 50 POC Glucose (mg/dL) (65-110) mg/dL Random Glucose 119 H 126 H (70-110) mg/dL Calcium 8.4 8.6 (8.4-10.5) mg/dL Phosphorus 4.3 (2.5-4.5) mg/dL Magnesium 2.4 H (1.7-2.2) mg/dL Total Bilirubin 0.4 (0.2-1.3) mg/dL AST 27 (17-59) U/L ALT 37 (7-56) U/L Alkaline Phosphatase 90 (38-126) U/L Total Protein 5.7 L (5.8-8.3) g/dL Albumin 2.4 L (3.0-4.8) g/dL Globulin 3.3 gm/dL Albumin/Globulin Ratio 0.7 L (1.1-1.8) 09/14/18 09/14/18 09/14/18 Range/Units 07:30 07:25 05:10 WBC 12.7 H (4.5-11.0) 10^3/uL RBC 3.44 L (3.5-6.1) 10^6/uL Hgb 9.2 L (14.0-18.0) g/dL Hct 32.2 L (42.0-52.0) % MCV 93.6 (80.0-105.0) fl MCH 26.7 (25.0-35.0) pg MCHC 28.6 L (31.0-37.0) g/dl RDW 16.6 H (11.5-14.5) % Plt Count 137 (120.0-450.0) 10^3/uL MPV 11.8 H (7.0-11.0) fl Neut % (Auto) 87.9 H (50.0-68.0) % Lymph % (Auto) 8.2 L (22.0-35.0) % [place] % (Auto) 2.4 (1.0-6.0) % Eos % (Auto) 0.6 L (1.5-5.0) % Baso % (Auto) 0.9 (0.0-3.0) % Lymph # (Auto) 1.0 L (1.2-3.4) [place] # (Auto) 0.3 (0.1-0.6) Eos # (Auto) 0.1 (0.0-0.7) Baso # (Auto) 0.12 (0.0-2.0) K/mm3 Absolute Neuts (auto) 11.18 H (1.4-6.5) PT (9.4-12.5) SECONDS INR pCO2 51 H (35-45) mm/Hg pO2 51.0 L (80-100) mm/Hg HCO3 33.1 H (21-28) mmol/L ABG pH 7.42 (7.35-7.45) ABG Total CO2 34.7 H (22-28) mmol.L ABG O2 Saturation 92.2 L (95-98) % ABG O2 Content 10.3 L (15-23) ML/dl ABG Base Excess 7.7 H (-2.0-3.0) mmol/L ABG Hemoglobin 8.2 L (11.7-17.4) g/dL ABG Carboxyhemoglobin 2.0 H (0.5-1.5) % POC ABG HHb (Measured) 7.6 H (0-5) % ABG Methemoglobin 0.9 (0.0-3.0) % ABG O2 Capacity 11.2 L (16-24) mL/dl Hgb O2 Saturation 89.4 L (95.0-98.0) % FiO2 80.0 % Sodium (132-148) mmol/L Potassium (3.6-5.0) mmol/L Chloride (98-107) mmol/L Carbon Dioxide (21-33) mmol/L Anion Gap (10-20) BUN (7-21) mg/dL Creatinine (0.8-1.5) mg/dl Est GFR ( Amer) Est GFR (Non-Af Amer) POC Glucose (mg/dL) 133 H (65-110) mg/dL Random Glucose (70-110) mg/dL Calcium (8.4-10.5) mg/dL Phosphorus (2.5-4.5) mg/dL Magnesium (1.7-2.2) mg/dL Total Bilirubin (0.2-1.3) mg/dL AST (17-59) U/L ALT (7-56) U/L Alkaline Phosphatase (38-126) U/L Total Protein (5.8-8.3) g/dL Albumin (3.0-4.8) g/dL Globulin gm/dL Albumin/Globulin Ratio (1.1-1.8) 09/13/18 09/13/18 Range/Units 22:10 16:23 WBC (4.5-11.0) 10^3/uL RBC (3.5-6.1) 10^6/uL Hgb (14.0-18.0) g/dL Hct (42.0-52.0) % MCV (80.0-105.0) fl MCH (25.0-35.0) pg MCHC (31.0-37.0) g/dl RDW (11.5-14.5) % Plt Count (120.0-450.0) 10^3/uL MPV (7.0-11.0) fl Neut % (Auto) (50.0-68.0) % Lymph % (Auto) (22.0-35.0) % [place] % (Auto) (1.0-6.0) % Eos % (Auto) (1.5-5.0) % Baso % (Auto) (0.0-3.0) % Lymph # (Auto) (1.2-3.4) [place] # (Auto) (0.1-0.6) Eos # (Auto) (0.0-0.7) Baso # (Auto) (0.0-2.0) K/mm3 Absolute Neuts (auto) (1.4-6.5) PT (9.4-12.5) SECONDS INR pCO2 (35-45) mm/Hg pO2 (80-100) mm/Hg HCO3 (21-28) mmol/L ABG pH (7.35-7.45) ABG Total CO2 (22-28) mmol.L ABG O2 Saturation (95-98) % ABG O2 Content (15-23) ML/dl ABG Base Excess (-2.0-3.0) mmol/L ABG Hemoglobin (11.7-17.4) g/dL ABG Carboxyhemoglobin (0.5-1.5) % POC ABG HHb (Measured) (0-5) % ABG Methemoglobin (0.0-3.0) % ABG O2 Capacity (16-24) mL/dl Hgb O2 Saturation (95.0-98.0) % FiO2 % Sodium (132-148) mmol/L Potassium (3.6-5.0) mmol/L Chloride (98-107) mmol/L Carbon Dioxide (21-33) mmol/L Anion Gap (10-20) BUN (7-21) mg/dL Creatinine (0.8-1.5) mg/dl Est GFR ( Amer) Est GFR (Non-Af Amer) POC Glucose (mg/dL) 144 H 139 H (65-110) mg/dL Random Glucose (70-110) mg/dL Calcium (8.4-10.5) mg/dL Phosphorus (2.5-4.5) mg/dL Magnesium (1.7-2.2) mg/dL Total Bilirubin (0.2-1.3) mg/dL AST (17-59) U/L ALT (7-56) U/L Alkaline Phosphatase (38-126) U/L Total Protein (5.8-8.3) g/dL Albumin (3.0-4.8) g/dL Globulin gm/dL Albumin/Globulin Ratio (1.1-1.8) Laboratory Results - last 24 hr 09/13/18 09/13/18 09/14/18 16:23 22:10 05:10 WBC RBC Hgb Hct MCV MCH MCHC RDW Plt Count MPV Neut % (Auto) Lymph % (Auto) [place] % (Auto) Eos % (Auto) Baso % (Auto) Lymph # (Auto) [place] # (Auto) Eos # (Auto) Baso # (Auto) Absolute Neuts (auto) PT INR pCO2 51 H pO2 51.0 L HCO3 33.1 H ABG pH 7.42 ABG Total CO2 34.7 H ABG O2 Saturation 92.2 L ABG O2 Content 10.3 L ABG Base Excess 7.7 H ABG Hemoglobin 8.2 L ABG Carboxyhemoglobin 2.0 H POC ABG HHb (Measured) 7.6 H ABG Methemoglobin 0.9 ABG O2 Capacity 11.2 L Hgb O2 Saturation 89.4 L FiO2 80.0 Sodium Potassium Chloride Carbon Dioxide Anion Gap BUN Creatinine Est GFR ( Amer) Est GFR (Non-Af Amer) POC Glucose (mg/dL) 139 H 144 H Random Glucose Calcium Phosphorus Magnesium Total Bilirubin AST ALT Alkaline Phosphatase Total Protein Albumin Globulin Albumin/Globulin Ratio 09/14/18 09/14/18 09/14/18 07:25 07:30 07:30 WBC 12.7 H RBC 3.44 L Hgb 9.2 L Hct 32.2 L MCV 93.6 MCH 26.7 MCHC 28.6 L RDW 16.6 H Plt Count 137 MPV 11.8 H Neut % (Auto) 87.9 H Lymph % (Auto) 8.2 L [place] % (Auto) 2.4 Eos % (Auto) 0.6 L Baso % (Auto) 0.9 Lymph # (Auto) 1.0 L [place] # (Auto) 0.3 Eos # (Auto) 0.1 Baso # (Auto) 0.12 Absolute Neuts (auto) 11.18 H PT INR pCO2 pO2 HCO3 ABG pH ABG Total CO2 ABG O2 Saturation ABG O2 Content ABG Base Excess ABG Hemoglobin ABG Carboxyhemoglobin POC ABG HHb (Measured) ABG Methemoglobin ABG O2 Capacity Hgb O2 Saturation FiO2 Sodium 147 Potassium 5.4 H Chloride 114 H Carbon Dioxide 34 H Anion Gap 4 L BUN 107 H Creatinine 1.4 Est GFR ( Amer) > 60 Est GFR (Non-Af Amer) 50 POC Glucose (mg/dL) 133 H Random Glucose 126 H Calcium 8.6 Phosphorus 4.3 Magnesium 2.4 H Total Bilirubin 0.4 AST 27 ALT 37 Alkaline Phosphatase 90 Total Protein 5.7 L Albumin 2.4 L Globulin 3.3 Albumin/Globulin Ratio 0.7 L 09/14/18 09/14/18 07:30 13:20 WBC RBC Hgb Hct MCV MCH MCHC RDW Plt Count MPV Neut % (Auto) Lymph % (Auto) [place] % (Auto) Eos % (Auto) Baso % (Auto) Lymph # (Auto) [place] # (Auto) Eos # (Auto) Baso # (Auto) Absolute Neuts (auto) PT 12.5 INR 1.11 pCO2 pO2 HCO3 ABG pH ABG Total CO2 ABG O2 Saturation ABG O2 Content ABG Base Excess ABG Hemoglobin ABG Carboxyhemoglobin POC ABG HHb (Measured) ABG Methemoglobin ABG O2 Capacity Hgb O2 Saturation FiO2 Sodium 148 Potassium 5.1 H Chloride 114 H Carbon Dioxide 34 H Anion Gap 5 L BUN 106 H Creatinine 1.6 H Est GFR ( Amer) 52 Est GFR (Non-Af Amer) 43 POC Glucose (mg/dL) Random Glucose 119 H Calcium 8.4 Phosphorus Magnesium Total Bilirubin AST ALT Alkaline Phosphatase Total Protein Albumin Globulin Albumin/Globulin Ratio Radiology Impressions: Radiology Impressions Extremity Ultrasound 09/13/18 09:49 IMPRESSION: No sonographic evidence for deep venous thrombosis in the visualized segments of both lower extremities. Limited study. Chest X-Ray 09/14/18 06:00 IMPRESSION: Improving pulmonary edema. Satisfactory position of endotracheal tube. Stable position of venous access catheter. Suboptimally, poorly positioned nasogastric feeding tube. Fingerstick Blood Sugar Results: 144 Critical Care Progress Note - Nutrition Nutrition: Nutrition Category Date Time Status NPO Diet [DIET] Diets 09/06/18 Breakfast Ordered Assessment/Plan - Assessment and Plan (Free Text) Assessment: Pt is a 68 yo M with pmhx of chronic back pain and vertebral disc disease who presented to the [facility] for complaints of b/l foot pain and back pain. ICU is consulted for management of pts acute hypercapnic respiratory failure and AMS. Pt had R thoracentesis done 08/31, pt was also intubated due to continued resp acidosis even on 100% FiO2 on Bipap. Pt was noted to have recurrence of L sided white out likely 2/2 mucous plug. Pt was intubated 09/07 and bronched and mutliple mucus plugs were removed. Repeat CXR clearing of L side of the lung, with persistent R sided hilar infiltrate. Trach today at noon. Plan: Neuro: - Pt is intubated and sedated - On precedex and fentanyl drip Pulm: Acute hypercapnic resp failure leading to respiratory acidosis w/ chronic incomplete compensatory resp alkalosis: - Likely 2/2 CHF exacerbation vs PNA vs mucous plug. Unlikely PE due to r/o by CTA - Pt intubated and subsequently bronched for mucous plug removal 09/06 & 09/07 - Pt will remain intubated and assessed for extubation - CXR: Redemonstrated are pulmonary venous congestion with bilateral alveolar-type infiltrates and bilateral effusions - Echo showed mildly imparied LV systolic dysfunction - BNP elevated - HOB elevated, oral hygiene - Abrams - Strict I/Os. Minimize positive fluid balance - Pt for trach today at noon. - Daily weight - Conversative O2 management PNA vs CHF: - Procal elevated - CXR and echo resulted noted above - ID on board, recs appreciated: Merrem q8 and intermittent vanc day 16 of tx - Bornch aspirate showed carlin in the washings - Started micafungin - Zyvox d/helga by ID due to dropping platelets - Repeat blood, urine and sputum cultures Cardio: Shock: Septic vs cardiogenic: - Pt has been titrated off of levophed drip today. - Continue lasix for diuresis for suspected cardiogenic shock - Pt had episode of hypotension for short period of time, bolused 2L NS, and episode resolved, will cont to monitor. - s/p Thoracentesis 08/31: 1700ml out - s/p bronch for mucous plug removal 09/06 & 09/07 - Tapered off stress dose steroids - Goal is MAP > 65 Nephro: Pre-renal Azotemia: - BUN/Cr = 107/1.4 - UA, urine sodium, urine cl, urine osms, urine protein and serum osms ordered - Conservative fluid management - Will cont to monitor - Will give lasix, now due to fluid overload and respiratory compromise but will limit other nephrotoxic agents - Nephro consulted, recs appreciated - Monitor I/Os - Maintain euvolemia Endo: - Maintain euglycemia - Ensure BS is regulated between 40-180 GI: - NPO for procedure - Protonix Heme: - Pts platelets have been steadily decreasing - Unlikely HIT as platelets were decreasing prior to introduction of heparin - Zyvox d/helga per ID to r/o thrombocytopenia side effects from zyvox MSK: B/l foot cellulitis - MRSA (+): - continue multipodus boots - cultures growing MRSA - Continue IV Vanc. ID following - Pt is refusing MRI to r/o osteomyelitis ID: Stage 3 Sacral decub ulcer: - Pt refusing MRI - Santyl and local wound care - Cont Vancomycin per ID recs - Will discuss with ID to transition to oral abx in order to minimize positive fluid balance DVT PPx: Heparin/Protonix Dispo: Pt for trach today. Accepted at [facility]. Case seen, examined and discussed with attending physician, Dr. Akbar Zimmerman PGY1 <Shimon Webber - Last Filed: 09/14/18 18:57> CCU Objective - Vital Signs / Intake & Output Intake and Output (Last 8hrs): Intake & Output 09/14/18 09/14/18 09/14/18 06:59 14:59 22:59 Intake Total 1390 275 Output Total 800 Balance 590 275 Intake: IV 1270 275 Right Internal Jugular 970 Oral 0 Tube Feeding 120 Output: Urine 800 Urethral (Abrams) 800 Other: # Bowel Movements 0 - Medications Active Medications: Active Medications Generic Name Dose Route Start Last Admin Trade Name Freq PRN Reason Stop Dose Admin Acetaminophen 650 mg 08/24/18 00:04 09/03/18 13:54 Tylenol 325mg Tab PO 650 mg Q6 PRN Administration TEMP>=99.5F Budesonide 0.5 mg 09/02/18 08:00 09/14/18 07:28 Pulmicort Respules IH 0.5 mg [id number] CASSY Administration Collagenase 0 gm 08/25/18 10:00 09/13/18 10:35 Santyl TOP 1 appl DAILY CASSY Administration Ergocalciferol 1 cap 08/26/18 15:00 09/09/18 15:56 Drisdol 50,000 Intl Units Cap PO 1 cap Q7D CASSY Administration Folic Acid 1 mg 08/26/18 15:00 09/13/18 10:31 Folic Acid PO 1 mg DAILY CASSY Administration Furosemide 60 mg 09/09/18 10:15 09/13/18 22:29 Lasix IVP 60 mg Q12 CASSY Administration NOREPINEPHRINE BIT/0.9 % NACL 4 mg in 250 mls @ 15 mls/hr 09/10/18 10:20 09/14/18 07:24 Levophed 4 Mg/ 250 Ml Ns Premixed IV 2 mcg/min .[id number] PRN 7.5 mls/hr TITRATE PER MD ORDER Titration Protocol 4 MCG/MIN Fentanyl Citrate 1,000 mcg in 100 mls @ 2 mls/hr 09/11/18 19:40 09/14/18 09:44 Fentanyl Citrate/Sodium Chloride 1 Mg/100 Ml IV 200 mcg/hr .Q24H PRN 20 mls/hr TITRATE PER MD ORDER Administration Protocol 20 MCG/HR Dobutamine HCl/Dextrose 500 mg in 250 mls @ 10.274 mls/hr 09/13/18 09:46 09/13/18 10:32 Dobutamine/Dextrose 5% 500mg/250ml IV 5 mcg/kg/min .Q24H PRN 10.274 mls/hr TITRATE PER PROTOCOL Administration Protocol 5 MCG/KG/MIN Dexmedetomidine HCl 400 mcg in 100 mls @ 3.425 mls/hr 09/13/18 09:56 09/14/18 12:31 Precedex 400mcg/100ml IV 1.5 mcg/kg/hr .Q24H PRN 25.685 mls/hr Agitation Administration Protocol 0.2 MCG/KG/HR Micafungin Sodium 100 mg/ 100 mls @ 100 mls/hr 09/13/18 14:45 09/13/18 15:20 Sodium Chloride IV 09/20/18 14:46 100 mls/hr DAILY CASSY Administration Protocol Levalbuterol HCl 0.63 mg 09/04/18 20:00 09/14/18 13:13 Xopenex IH 0.63 mg [id number] CASSY Administration Methylprednisolone 20 mg 09/13/18 10:30 09/13/18 22:32 Solu-Medrol IVP 20 mg Q12 CASSY Administration Midodrine 7.5 mg 09/13/18 10:00 09/13/18 18:39 Proamatine PO 7.5 mg TID CASSY Administration Multi-Ingredient Ointment 0 gm 09/13/18 14:15 09/14/18 02:45 Hydrophor Oint TOP 1 dose Q6H CASSY Administration Nicotine 1 patch 08/24/18 10:00 09/13/18 10:33 Nicoderm Cq TD 1 patch DAILY CASSY Administration Nystatin 0 ea 09/03/18 18:00 09/13/18 18:33 Mycostatin Cream TOP 1 cre TID CASSY Administration Ondansetron HCl 4 mg 08/24/18 00:04 Zofran Inj IVP Q4H PRN Nausea/Vomiting Pantoprazole Sodium 40 mg 09/02/18 10:00 09/13/18 10:28 Protonix Inj IVP 40 mg DAILY CASSY Administration Polyethylene Glycol 17 gm 08/31/18 10:00 09/13/18 10:31 Miralax PO 17 gm DAILY CASSY Administration Sodium Hypochlorite 0 ml 09/01/18 13:00 09/12/18 09:31 Dakins Solution 0.25% TOP 1 applic DAILY CASSY Administration - Patient Studies Lab Studies: Lab Studies 09/14/18 09/14/18 09/14/18 Range/Units 13:20 11:36 07:30 WBC (4.5-11.0) 10^3/uL RBC (3.5-6.1) 10^6/uL Hgb (14.0-18.0) g/dL Hct (42.0-52.0) % MCV (80.0-105.0) fl MCH (25.0-35.0) pg MCHC (31.0-37.0) g/dl RDW (11.5-14.5) % Plt Count (120.0-450.0) 10^3/uL MPV (7.0-11.0) fl Neut % (Auto) (50.0-68.0) % Lymph % (Auto) (22.0-35.0) % [place] % (Auto) (1.0-6.0) % Eos % (Auto) (1.5-5.0) % Baso % (Auto) (0.0-3.0) % Lymph # (Auto) (1.2-3.4) [place] # (Auto) (0.1-0.6) Eos # (Auto) (0.0-0.7) Baso # (Auto) (0.0-2.0) K/mm3 Absolute Neuts (auto) (1.4-6.5) PT 12.5 (9.4-12.5) SECONDS INR 1.11 pCO2 (35-45) mm/Hg pO2 (80-100) mm/Hg HCO3 (21-28) mmol/L ABG pH (7.35-7.45) ABG Total CO2 (22-28) mmol.L ABG O2 Saturation (95-98) % ABG O2 Content (15-23) ML/dl ABG Base Excess (-2.0-3.0) mmol/L ABG Hemoglobin (11.7-17.4) g/dL ABG Carboxyhemoglobin (0.5-1.5) % POC ABG HHb (Measured) (0-5) % ABG Methemoglobin (0.0-3.0) % ABG O2 Capacity (16-24) mL/dl Hgb O2 Saturation (95.0-98.0) % FiO2 % Sodium 148 (132-148) mmol/L Potassium 5.1 H (3.6-5.0) mmol/L Chloride 114 H (98-107) mmol/L Carbon Dioxide 34 H (21-33) mmol/L Anion Gap 5 L (10-20) BUN 106 H (7-21) mg/dL Creatinine 1.6 H (0.8-1.5) mg/dl Est GFR ( Amer) 52 Est GFR (Non-Af Amer) 43 POC Glucose (mg/dL) 174 H (65-110) mg/dL Random Glucose 119 H (70-110) mg/dL Calcium 8.4 (8.4-10.5) mg/dL Phosphorus (2.5-4.5) mg/dL Magnesium (1.7-2.2) mg/dL Total Bilirubin (0.2-1.3) mg/dL AST (17-59) U/L ALT (7-56) U/L Alkaline Phosphatase (38-126) U/L Total Protein (5.8-8.3) g/dL Albumin (3.0-4.8) g/dL Globulin gm/dL Albumin/Globulin Ratio (1.1-1.8) 09/14/18 09/14/18 09/14/18 Range/Units 07:30 07:30 07:25 WBC 12.7 H (4.5-11.0) 10^3/uL RBC 3.44 L (3.5-6.1) 10^6/uL Hgb 9.2 L (14.0-18.0) g/dL Hct 32.2 L (42.0-52.0) % MCV 93.6 (80.0-105.0) fl MCH 26.7 (25.0-35.0) pg MCHC 28.6 L (31.0-37.0) g/dl RDW 16.6 H (11.5-14.5) % Plt Count 137 (120.0-450.0) 10^3/uL MPV 11.8 H (7.0-11.0) fl Neut % (Auto) 87.9 H (50.0-68.0) % Lymph % (Auto) 8.2 L (22.0-35.0) % [place] % (Auto) 2.4 (1.0-6.0) % Eos % (Auto) 0.6 L (1.5-5.0) % Baso % (Auto) 0.9 (0.0-3.0) % Lymph # (Auto) 1.0 L (1.2-3.4) [place] # (Auto) 0.3 (0.1-0.6) Eos # (Auto) 0.1 (0.0-0.7) Baso # (Auto) 0.12 (0.0-2.0) K/mm3 Absolute Neuts (auto) 11.18 H (1.4-6.5) PT (9.4-12.5) SECONDS INR pCO2 (35-45) mm/Hg pO2 (80-100) mm/Hg HCO3 (21-28) mmol/L ABG pH (7.35-7.45) ABG Total CO2 (22-28) mmol.L ABG O2 Saturation (95-98) % ABG O2 Content (15-23) ML/dl ABG Base Excess (-2.0-3.0) mmol/L ABG Hemoglobin (11.7-17.4) g/dL ABG Carboxyhemoglobin (0.5-1.5) % POC ABG HHb (Measured) (0-5) % ABG Methemoglobin (0.0-3.0) % ABG O2 Capacity (16-24) mL/dl Hgb O2 Saturation (95.0-98.0) % FiO2 % Sodium 147 (132-148) mmol/L Potassium 5.4 H (3.6-5.0) mmol/L Chloride 114 H (98-107) mmol/L Carbon Dioxide 34 H (21-33) mmol/L Anion Gap 4 L (10-20) BUN 107 H (7-21) mg/dL Creatinine 1.4 (0.8-1.5) mg/dl Est GFR ( Amer) > 60 Est GFR (Non-Af Amer) 50 POC Glucose (mg/dL) 133 H (65-110) mg/dL Random Glucose 126 H (70-110) mg/dL Calcium 8.6 (8.4-10.5) mg/dL Phosphorus 4.3 (2.5-4.5) mg/dL Magnesium 2.4 H (1.7-2.2) mg/dL Total Bilirubin 0.4 (0.2-1.3) mg/dL AST 27 (17-59) U/L ALT 37 (7-56) U/L Alkaline Phosphatase 90 (38-126) U/L Total Protein 5.7 L (5.8-8.3) g/dL Albumin 2.4 L (3.0-4.8) g/dL Globulin 3.3 gm/dL Albumin/Globulin Ratio 0.7 L (1.1-1.8) 09/14/18 09/13/18 Range/Units 05:10 22:10 WBC (4.5-11.0) 10^3/uL RBC (3.5-6.1) 10^6/uL Hgb (14.0-18.0) g/dL Hct (42.0-52.0) % MCV (80.0-105.0) fl MCH (25.0-35.0) pg MCHC (31.0-37.0) g/dl RDW (11.5-14.5) % Plt Count (120.0-450.0) 10^3/uL MPV (7.0-11.0) fl Neut % (Auto) (50.0-68.0) % Lymph % (Auto) (22.0-35.0) % [place] % (Auto) (1.0-6.0) % Eos % (Auto) (1.5-5.0) % Baso % (Auto) (0.0-3.0) % Lymph # (Auto) (1.2-3.4) [place] # (Auto) (0.1-0.6) Eos # (Auto) (0.0-0.7) Baso # (Auto) (0.0-2.0) K/mm3 Absolute Neuts (auto) (1.4-6.5) PT (9.4-12.5) SECONDS INR pCO2 51 H (35-45) mm/Hg pO2 51.0 L (80-100) mm/Hg HCO3 33.1 H (21-28) mmol/L ABG pH 7.42 (7.35-7.45) ABG Total CO2 34.7 H (22-28) mmol.L ABG O2 Saturation 92.2 L (95-98) % ABG O2 Content 10.3 L (15-23) ML/dl ABG Base Excess 7.7 H (-2.0-3.0) mmol/L ABG Hemoglobin 8.2 L (11.7-17.4) g/dL ABG Carboxyhemoglobin 2.0 H (0.5-1.5) % POC ABG HHb (Measured) 7.6 H (0-5) % ABG Methemoglobin 0.9 (0.0-3.0) % ABG O2 Capacity 11.2 L (16-24) mL/dl Hgb O2 Saturation 89.4 L (95.0-98.0) % FiO2 80.0 % Sodium (132-148) mmol/L Potassium (3.6-5.0) mmol/L Chloride (98-107) mmol/L Carbon Dioxide (21-33) mmol/L Anion Gap (10-20) BUN (7-21) mg/dL Creatinine (0.8-1.5) mg/dl Est GFR ( Amer) Est GFR (Non-Af Amer) POC Glucose (mg/dL) 144 H (65-110) mg/dL Random Glucose (70-110) mg/dL Calcium (8.4-10.5) mg/dL Phosphorus (2.5-4.5) mg/dL Magnesium (1.7-2.2) mg/dL Total Bilirubin (0.2-1.3) mg/dL AST (17-59) U/L ALT (7-56) U/L Alkaline Phosphatase (38-126) U/L Total Protein (5.8-8.3) g/dL Albumin (3.0-4.8) g/dL Globulin gm/dL Albumin/Globulin Ratio (1.1-1.8) Laboratory Results - last 24 hr 09/13/18 09/14/18 09/14/18 22:10 05:10 07:25 WBC RBC Hgb Hct MCV MCH MCHC RDW Plt Count MPV Neut % (Auto) Lymph % (Auto) [place] % (Auto) Eos % (Auto) Baso % (Auto) Lymph # (Auto) [place] # (Auto) Eos # (Auto) Baso # (Auto) Absolute Neuts (auto) PT INR pCO2 51 H pO2 51.0 L HCO3 33.1 H ABG pH 7.42 ABG Total CO2 34.7 H ABG O2 Saturation 92.2 L ABG O2 Content 10.3 L ABG Base Excess 7.7 H ABG Hemoglobin 8.2 L ABG Carboxyhemoglobin 2.0 H POC ABG HHb (Measured) 7.6 H ABG Methemoglobin 0.9 ABG O2 Capacity 11.2 L Hgb O2 Saturation 89.4 L FiO2 80.0 Sodium Potassium Chloride Carbon Dioxide Anion Gap BUN Creatinine Est GFR ( Amer) Est GFR (Non-Af Amer) POC Glucose (mg/dL) 144 H 133 H Random Glucose Calcium Phosphorus Magnesium Total Bilirubin AST ALT Alkaline Phosphatase Total Protein Albumin Globulin Albumin/Globulin Ratio 09/14/18 09/14/18 09/14/18 07:30 07:30 07:30 WBC 12.7 H RBC 3.44 L Hgb 9.2 L Hct 32.2 L MCV 93.6 MCH 26.7 MCHC 28.6 L RDW 16.6 H Plt Count 137 MPV 11.8 H Neut % (Auto) 87.9 H Lymph % (Auto) 8.2 L [place] % (Auto) 2.4 Eos % (Auto) 0.6 L Baso % (Auto) 0.9 Lymph # (Auto) 1.0 L [place] # (Auto) 0.3 Eos # (Auto) 0.1 Baso # (Auto) 0.12 Absolute Neuts (auto) 11.18 H PT 12.5 INR 1.11 pCO2 pO2 HCO3 ABG pH ABG Total CO2 ABG O2 Saturation ABG O2 Content ABG Base Excess ABG Hemoglobin ABG Carboxyhemoglobin POC ABG HHb (Measured) ABG Methemoglobin ABG O2 Capacity Hgb O2 Saturation FiO2 Sodium 147 Potassium 5.4 H Chloride 114 H Carbon Dioxide 34 H Anion Gap 4 L BUN 107 H Creatinine 1.4 Est GFR ( Amer) > 60 Est GFR (Non-Af Amer) 50 POC Glucose (mg/dL) Random Glucose 126 H Calcium 8.6 Phosphorus 4.3 Magnesium 2.4 H Total Bilirubin 0.4 AST 27 ALT 37 Alkaline Phosphatase 90 Total Protein 5.7 L Albumin 2.4 L Globulin 3.3 Albumin/Globulin Ratio 0.7 L 09/14/18 09/14/18 11:36 13:20 WBC RBC Hgb Hct MCV MCH MCHC RDW Plt Count MPV Neut % (Auto) Lymph % (Auto) [place] % (Auto) Eos % (Auto) Baso % (Auto) Lymph # (Auto) [place] # (Auto) Eos # (Auto) Baso # (Auto) Absolute Neuts (auto) PT INR pCO2 pO2 HCO3 ABG pH ABG Total CO2 ABG O2 Saturation ABG O2 Content ABG Base Excess ABG Hemoglobin ABG Carboxyhemoglobin POC ABG HHb (Measured) ABG Methemoglobin ABG O2 Capacity Hgb O2 Saturation FiO2 Sodium 148 Potassium 5.1 H Chloride 114 H Carbon Dioxide 34 H Anion Gap 5 L BUN 106 H Creatinine 1.6 H Est GFR ( Amer) 52 Est GFR (Non-Af Amer) 43 POC Glucose (mg/dL) 174 H Random Glucose 119 H Calcium 8.4 Phosphorus Magnesium Total Bilirubin AST ALT Alkaline Phosphatase Total Protein Albumin Globulin Albumin/Globulin Ratio Radiology Impressions: Radiology Impressions Chest X-Ray 09/14/18 06:00 IMPRESSION: Improving pulmonary edema. Satisfactory position of endotracheal tube. Stable position of venous access catheter. Suboptimally, poorly positioned nasogastric feeding tube. Critical Care Progress Note - Nutrition Nutrition: Nutrition Category Date Time Status NPO Diet [DIET] Diets 09/06/18 Breakfast Ordered Attending/Attestation - Attestation I have personally seen and examined this patient.: Yes I have fully participated in the care of the patient.: Yes I have reviewed all pertinent clinical information: Yes Notes (Text): 09/14/18 18:53 68 yo male with hypoxemic respiratory failure due to severe pulmonary edema likely due to combined etiology, in the setting of RV failure. protective lung ventilation strategy, HOB>35, oral hygiene, conservative fluid and 02 management, abx, steroids and bronchodilators. dobutamine for RV failure. dvt/gi prophyalxis. FRANCES likely multifactorial: ATN/sepsis, cardiorenal syndrome. nephro consult is appreciated ccm time 40 min.
[2018-09-14] MEDS ORDERED: Bupivacaine 0.5% Inj(30mL) IJ ONE (14:20)
--- NOTE | 2018-09-14 14:23 | PN ---
DATE: 09/14/2018 CARDIOLOGY FOLLOWUP SUBJECTIVE: The patient remains ventilator dependent. PHYSICAL EXAMINATION: VITAL SIGNS: Blood pressure 110/47, heart rate is 110 now which was in the 50s before. NECK: Negative JVD. LUNGS: Decreased breath sounds. HEART: S1, S2. EXTREMITIES: Without change. LABORATORY DATA: Hemoglobin is 9.2, white count is 12.7. BUN and creatinine are 107 and 1.4. IMPRESSION: 1. Respiratory failure. 2. Bilateral pneumonia. 3. Prerenal azotemia. 4. Fluctuating heart rate. 5. Diabetes mellitus. Given these findings, I do not feel dobutamine is hopeful, however, we will continue given the trial for another 24 hours. Jero Salamanca MD
[2018-09-14] MEDS ORDERED: Etomidate 20 mg/10ml Inj IV ONE (14:47)
--- NOTE | 2018-09-14 15:54 | CP.PCM.PRO ---
Pronouncement of Note - Clinical Findings Physical Exam: No Response Verbal/Painful Stimuli, Absent Peripheral Puls es{Carotid & Femoral}, Absent Heart & Breath Sounds, No Pupillary Light Reflex, No Corneal Reflex, Pupils Fixed & Dilated, Absence of Vital Signs - Pronouncement Time Time of Pronouncement of : 15:24 - Notifications Pronouncement Notifications: Family Notified, Atending Notified Outdoor Studies Director Notified: Yes - [place] [id number]
--- NOTE | 2018-09-14 16:06 | PCM.RRT ---
GUIDANCE AND CONTROL SYSTEM ENGINEER Nurse Assessment - Situation Date: 09/14/18 Time GUIDANCE AND CONTROL SYSTEM ENGINEER was called: 15:06 GUIDANCE AND CONTROL SYSTEM ENGINEER Responder Arrival Time: 15:08 GUIDANCE AND CONTROL SYSTEM ENGINEER Location:: OR GUIDANCE AND CONTROL SYSTEM ENGINEER Reason for Call: Hypotension - Respiratory Oxygen Delivery Method: Intubated I.Reason for GUIDANCE AND CONTROL SYSTEM ENGINEER - A) Acute Change in Patient: Subjective: CODE BLUE NOTE Code blue was initiated at 15:06 pm for OR room 7. Arrived at bedside, patient intubated and compressions ongoing. Patient was undergoing scheduled tracheostomy when reportedly patient became hypotensive and went into unstable rhythm. Pulse was unable to be obtained and code blue was called, compressions started. Patient underwent multiple rounds of chest compressions, administration of epinephrine. Patient rhythm was continually monitored and after multiple rounds of compressions was interpretted at shockable rhythm. Patient was administered one shock at 200 joules. Patient was noted to have minimal return of palpable pulse during code blue. Patient was unable to maintain appropriate pulse and chest compressions were restarted. Patient family was contacted during code blue and informed of situation. Efforts for resuscitation were attempted for ~30 minutes without stable ROSC. Patient time of was called at 15:34
--- NOTE | 2018-09-14 16:15 | CP.PCM.CON ---
History of Present Illness - History of Present Illness History of Present Illness: Shortly after placement of tracheostomy tube, SpO2 decreased to 70s, patient's blood pressure also decreased to 60s without response to increases in dobutamine gtt, and HR went from 120s to 50s. Bilateral breath sounds were heard on exam, tracheostomy tube was suctioned, fiberoptic bronchoscopy was done to confirm position of tracheostomy tube. At 1505, after no pulse could be identified, code was called, refer to code blue sheet, one shock and multiple doses of epinephrine given, unable to resuscitate patient. Time of 1524. Past Patient History - Past Social History Chewing Tobacco Use: No - CARDIAC Hx Cardiac Disorders: No Hx Hypertension: No Hx Pacemaker: No - PULMONARY Hx Respiratory Disorders: No Hx Asthma: No Hx Chronic Obstructive Pulmonary Disease (COPD): No Hx Emphysema: No - NEUROLOGICAL HX Cerebrovascular Accident: No Hx Dementia: No Hx Seizures: No - RENAL Hx Chronic Kidney Disease: No - HEMATOLOGICAL/ONCOLOGICAL Hx Cancer: No - INTEGUMENTARY Other/Comment: cellulitis ble - MUSCULOSKELETAL/RHEUMATOLOGICAL Hx Musculoskeletal Disorders: Yes - GASTROINTESTINAL Hx Gastroesophageal Reflux: No - GENITOURINARY/GYNECOLOGICAL Hx Genitourinary Disorders: No - PSYCHIATRIC Hx Depression: No Hx Emotional Abuse: No Hx Physical Abuse: No Hx Substance Use: No - SURGICAL HISTORY Hx Surgeries: No Meds Allergies/Adverse Reactions: Allergies Allergy/AdvReac Type Severity Reaction Status Date / Time Penicillins Allergy RASH Verified 08/23/18 21:25 - Medications Medications: Current Medications Acetaminophen (Tylenol 325mg Tab) 650 mg PO Q6 PRN PRN Reason: TEMP>=99.5F Last Admin: 09/03/18 13:54 Dose: 650 mg Budesonide (Pulmicort Respules) 0.5 mg IH [id number] [facility] Last Admin: 09/14/18 07:28 Dose: 0.5 mg Collagenase (Santyl) 0 gm TOP DAILY [facility] Last Admin: 09/13/18 10:35 Dose: 1 appl Ergocalciferol (Drisdol 50,000 Intl Units Cap) 1 cap PO Q7D [facility] Last Admin: 09/09/18 15:56 Dose: 1 cap Folic Acid (Folic Acid) 1 mg PO DAILY [facility] Last Admin: 09/13/18 10:31 Dose: 1 mg Furosemide (Lasix) 60 mg IVP Q12 [facility] Last Admin: 09/13/18 22:29 Dose: 60 mg NOREPINEPHRINE BIT/0.9 % NACL (Levophed 4 Mg/ 250 Ml Ns Premixed) 4 mg in 250 mls @ 15 mls/hr IV .[id number] PRN; Protocol PRN Reason: TITRATE PER MD ORDER Last Titration: 09/14/18 07:24 Dose: 2 mcg/min, 7.5 mls/hr Fentanyl Citrate (Fentanyl Citrate/Sodium Chloride 1 Mg/100 Ml) 1,000 mcg in 100 mls @ 2 mls/hr IV .Q24H PRN; Protocol PRN Reason: TITRATE PER MD ORDER Last Admin: 09/14/18 09:44 Dose: 200 mcg/hr, 20 mls/hr Dobutamine HCl/Dextrose (Dobutamine/Dextrose 5% 500mg/250ml) 500 mg in 250 mls @ 10.274 mls/hr IV .Q24H PRN; Protocol PRN Reason: TITRATE PER PROTOCOL Last Admin: 09/13/18 10:32 Dose: 5 mcg/kg/min, 10.274 mls/hr Dexmedetomidine HCl (Precedex 400mcg/100ml) 400 mcg in 100 mls @ 3.425 mls/hr IV .Q24H PRN; Protocol PRN Reason: Agitation Last Admin: 09/14/18 12:31 Dose: 1.5 mcg/kg/hr, 25.685 mls/hr Micafungin Sodium 100 mg/ (Sodium Chloride) 100 mls @ 100 mls/hr IV DAILY [facility]; Protocol Stop: 09/20/18 14:46 Last Admin: 09/13/18 15:20 Dose: 100 mls/hr Levalbuterol HCl (Xopenex) 0.63 mg IH [id number] [facility] Last Admin: 09/14/18 13:13 Dose: 0.63 mg Methylprednisolone (Solu-Medrol) 20 mg IVP Q12 [facility] Last Admin: 09/13/18 22:32 Dose: 20 mg Midodrine (Proamatine) 7.5 mg PO TID [facility] Last Admin: 09/13/18 18:39 Dose: 7.5 mg Multi-Ingredient Ointment (Hydrophor Oint) 0 gm TOP Q6H [facility] Last Admin: 09/14/18 02:45 Dose: 1 dose Nicotine (Nicoderm Cq) 1 patch TD DAILY [facility] Last Admin: 09/13/18 10:33 Dose: 1 patch Nystatin (Mycostatin Cream) 0 ea TOP TID [facility] Last Admin: 09/13/18 18:33 Dose: 1 cre Ondansetron HCl (Zofran Inj) 4 mg IVP Q4H PRN PRN Reason: Nausea/Vomiting Pantoprazole Sodium (Protonix Inj) 40 mg IVP DAILY [facility] Last Admin: 09/13/18 10:28 Dose: 40 mg Polyethylene Glycol (Miralax) 17 gm PO DAILY [facility] Last Admin: 09/13/18 10:31 Dose: 17 gm Sodium Hypochlorite (Dakins Solution 0.25%) 0 ml TOP DAILY [facility] Last Admin: 09/12/18 09:31 Dose: 1 applic Results - Vital Signs Recent Vital Signs: Last Vital Signs Temp 97.4 F L 09/14/18 05:00 Pulse 58 L 09/14/18 08:00 Resp 21 09/14/18 07:35 BP 110/47 L 09/14/18 08:00 Pulse Ox 96 09/14/18 08:00 - Labs Result Diagrams: 09/14/18 07:30 09/14/18 13:20 Labs: Laboratory Results - last 24 hr 09/13/18 09/13/18 09/14/18 16:23 22:10 05:10 WBC RBC Hgb Hct MCV MCH MCHC RDW Plt Count MPV Neut % (Auto) Lymph % (Auto) [place] % (Auto) Eos % (Auto) Baso % (Auto) Lymph # (Auto) [place] # (Auto) Eos # (Auto) Baso # (Auto) Absolute Neuts (auto) PT INR pCO2 51 H pO2 51.0 L HCO3 33.1 H ABG pH 7.42 ABG Total CO2 34.7 H ABG O2 Saturation 92.2 L ABG O2 Content 10.3 L ABG Base Excess 7.7 H ABG Hemoglobin 8.2 L ABG Carboxyhemoglobin 2.0 H POC ABG HHb (Measured) 7.6 H ABG Methemoglobin 0.9 ABG O2 Capacity 11.2 L Hgb O2 Saturation 89.4 L FiO2 80.0 Sodium Potassium Chloride Carbon Dioxide Anion Gap BUN Creatinine Est GFR ( Amer) Est GFR (Non-Af Amer) POC Glucose (mg/dL) 139 H 144 H Random Glucose Calcium Phosphorus Magnesium Total Bilirubin AST ALT Alkaline Phosphatase Total Protein Albumin Globulin Albumin/Globulin Ratio 09/14/18 09/14/18 09/14/18 07:25 07:30 07:30 WBC 12.7 H RBC 3.44 L Hgb 9.2 L Hct 32.2 L MCV 93.6 MCH 26.7 MCHC 28.6 L RDW 16.6 H Plt Count 137 MPV 11.8 H Neut % (Auto) 87.9 H Lymph % (Auto) 8.2 L [place] % (Auto) 2.4 Eos % (Auto) 0.6 L Baso % (Auto) 0.9 Lymph # (Auto) 1.0 L [place] # (Auto) 0.3 Eos # (Auto) 0.1 Baso # (Auto) 0.12 Absolute Neuts (auto) 11.18 H PT INR pCO2 pO2 HCO3 ABG pH ABG Total CO2 ABG O2 Saturation ABG O2 Content ABG Base Excess ABG Hemoglobin ABG Carboxyhemoglobin POC ABG HHb (Measured) ABG Methemoglobin ABG O2 Capacity Hgb O2 Saturation FiO2 Sodium 147 Potassium 5.4 H Chloride 114 H Carbon Dioxide 34 H Anion Gap 4 L BUN 107 H Creatinine 1.4 Est GFR ( Amer) > 60 Est GFR (Non-Af Amer) 50 POC Glucose (mg/dL) 133 H Random Glucose 126 H Calcium 8.6 Phosphorus 4.3 Magnesium 2.4 H Total Bilirubin 0.4 AST 27 ALT 37 Alkaline Phosphatase 90 Total Protein 5.7 L Albumin 2.4 L Globulin 3.3 Albumin/Globulin Ratio 0.7 L 09/14/18 09/14/18 07:30 13:20 WBC RBC Hgb Hct MCV MCH MCHC RDW Plt Count MPV Neut % (Auto) Lymph % (Auto) [place] % (Auto) Eos % (Auto) Baso % (Auto) Lymph # (Auto) [place] # (Auto) Eos # (Auto) Baso # (Auto) Absolute Neuts (auto) PT 12.5 INR 1.11 pCO2 pO2 HCO3 ABG pH ABG Total CO2 ABG O2 Saturation ABG O2 Content ABG Base Excess ABG Hemoglobin ABG Carboxyhemoglobin POC ABG HHb (Measured) ABG Methemoglobin ABG O2 Capacity Hgb O2 Saturation FiO2 Sodium 148 Potassium 5.1 H Chloride 114 H Carbon Dioxide 34 H Anion Gap 5 L BUN 106 H Creatinine 1.6 H Est GFR ( Amer) 52 Est GFR (Non-Af Amer) 43 POC Glucose (mg/dL) Random Glucose 119 H Calcium 8.4 Phosphorus Magnesium Total Bilirubin AST ALT Alkaline Phosphatase Total Protein Albumin Globulin Albumin/Globulin Ratio
[2018-09-14 16:53] VITALS: BP 104/47; PULSE 113; O2SAT 97
--- NOTE | 2018-09-14 20:30 | PCM.SURG1 ---
Surgeon's Initial Post Op Note - Surgeon's Notes Surgeon: Dr. Harvey Iron Carrier: Dr. Lazo Type of Anesthesia: General Endo Anesthesia Administered By: Dr. Shelton Pre-Operative Diagnosis: Failure Operative Findings: See operative dictation Post-Operative Diagnosis: Same Operation Performed: Tracheostomy Specimen/Specimens Removed: none Estimated Blood Loss: EBL {In ML}: 5 Blood Products Given: N/A Drains Used: No Drains Post-Op Condition: Other () Date of Surgery/Procedure: 09/14/18 Time of Surgery/Procedure: 13:00
--- NOTE | 2018-09-16 11:08 | OP ---
PROCEDURE DATE: 09/14/2018 SURGEON: Jung Harvey MD [employer] PROFESSOR: Angelo Valenzuela DO, PGY-2 PROTOTYPE ENGINEER: Dr. Christensen. ANESTHESIA: General endotracheal - Marcaine 0.5 - 10 mL. PREOPERATIVE DIAGNOSES: 1. Progressive cardiorespiratory failure. 2. Sepsis secondary to bronchopneumonia and infected decubiti. 3. Chronic low back syndrome. 4. Peripheral vascular disease with resting pain. POSTOPERATIVE DIAGNOSES: 1. Progressive cardiorespiratory failure. 2. Sepsis secondary to bronchopneumonia and infected decubiti. 3. Chronic low back syndrome. 4. Peripheral vascular disease with resting pain. PROCEDURE: Tracheostomy. OPERATIVE INDICATION: The patient is a 68-year-old male who is essentially bedridden at home with [id number] sedation by pain management for severe resting leg and foot pain. He has multiple decubiti on his extremities and his hips and he enters the hospital with a 103 temperature and is treated for same and found to have airspace infiltrates and is managed with this. During the hospital stay, he has progressively gotten worse with increasing pulmonary effusions, congestion in the pulmonary space with airspace infiltrates and requiring pressor medication to maintain a blood pressure. The patient's pulmonary status has been progressively deteriorating. At the same time, the decubiti were cleaned and were not thought to be the cause of his sepsis, but his pulmonary condition. Over the past few days, the patient's respiratory support has had to have increasing oxygen, FIO2 levels that were approximately 80% to maintain pO2 above 90. On the morning of his tracheostomy, the pO2 was dropping and required 100% FIO2. With the cessation of the midodrine (ProAmatine), the blood pressure has dropped below 100. The combination is extremely dangerous. At the insistence of the intensive care unit joint cleaning machine operator (Akbar), the family was contacted - brother Etienne and explaining the situation that the patient will need continued respiratory support but cannot maintain the tube any longer and explaining the risks which are significant at this point and the benefits, the brother gave consent for the tracheostomy. The patient was alert enough to discuss this on the morning of the procedure and wrote a note saying that the tube in his throat was killing him and he wanted it out. DESCRIPTION OF PROCEDURE: The patient is brought to the operating room from the Intensive Care Unit. He is identified by his wristband. He is placed on the table in a supine manner, undergoes time-out procedure and 100% of oxygenation was provided by the anesthesiologist. The patient's blood pressure remained in the 80 range and the saturation dropped below 90 at this point. The anterior neck was prepped with Betadine and the patient is aseptically draped. The patient had a previous incision that was in the suprasternal notch of vent and infiltration was employed with the local anesthetic in a vertical manner allowing exposure down through the skin to the pretracheal musculature and the scar which is carefully divided and hemostasis meticulously obtained. The trachea is finally visualized through the extremely dense scar is palpated carefully. A tracheal hook is inserted and the trachea lifted up into the incision and incision made into the trachea exposing the endotracheal tube below. The anesthesiologist is pulling the tube back and under direct vision, a #8 Shiley DCT tube was inserted into the trachea and the balloon inflated. The airway tubing is connected and the patient is ventilated and after 15 seconds, a lack of carbon dioxide return alarms the anesthesiologist who informs the surgical team who exposed the incision, pulled the tube out, suctioned out the trachea and insert the tube back in and inflate the balloon. After multiple inhalations, CO2 is seen to be measured on the monitor and the wound is closed with 2-0 chromic subcutaneous approximation and the tracheostomy tube secured to the skin with 2-0 silk suture. The rn surgical pcu inadvertently struck his finger with the needle chandler and needle and cut his glove and left the operating room for immediate treatment. At this point, the ventilation continues, but the patient's oxygenation starts to drop below 81%. The anesthesiologist becomes alarmed that patient may have a bronchial plug that is limiting ventilation and he notices the blood pressure continues to drop significantly below 80 to 60 and then 40 and says he would like us to start compressions. The anesthesiologist says he feels the carotid pulse. The surgeon, at this point, could not confirm the carotid pulse and could not feel a femoral pulse. A code was called and compressions were initiated. The patient developed a blood pressure of 60 with external compression and a bronchoscope is brought into the room, inserted into the tracheostomy and the trachea examined quickly and found to be completely patent on both sides and ventilation and compressions resumed. After approximately 30 minutes with multiple injections of epinephrine, which failed to increase the patient's blood pressure, the patient's pulse on the monitor with agonal and absence of palpable femoral and carotid pulses and the code blue was called with pronouncement at 15:34 p.m. The patient's brother was notified, he is a teacher in a local school and he said, he would be coming to the hospital immediately. The patient was transported back to the intensive care unit and he will await the arrival of the brother at this point. When the brother arrived, he was concerned because he thought that the patient was in reasonable condition and had entered the hospital only with bed sores. Discussion was held explaining that the patient came in with a septic state and was found to have pneumonia, heart failure, peripheral vascular disease, chronic low back pain and was not in his usual state of health but actually deteriorating and had become rapidly worse requiring respiratory support, intubation and progressively increasing oxygenation up to 100% at the time of the tracheostomy. The brother was completely satisfied with all explanations to this point and was advised that no further testing would be required and his brother would be released to the home when arrangements were made. This dictation will be electronically signed without being read. Jung Harvey MD
== END 2018-09-14 15:25 | DRG 3 ==
LOC: ED 20:55 → ERH 22:33 → 5RNO 08-24 03:35 → 2RNO 08-28 23:11 → ICU 08-31 08:37
PROVIDERS: ADMIT Internal Medicine; ATTEND Internal Medicine
PROC: 3E0F7GC Introduction of Other Therapeutic Substance into Respiratory Tract, Via Natural or Artificial Opening (ICD-10-PCS; 2018-08-24)
PROC: 30233N1 Transfusion of Nonautologous Red Blood Cells into Peripheral Vein, Percutaneous Approach (ICD-10-PCS; 2018-08-25)
PROC: 5A1945Z Respiratory Ventilation, 24-96 Consecutive Hours (ICD-10-PCS; 2018-08-31)
PROC: 0BH17EZ Insertion of Endotracheal Airway into Trachea, Via Natural or Artificial Opening (ICD-10-PCS; 2018-08-31)
PROC: 0W993ZX Drainage of Right Pleural Cavity, Percutaneous Approach, Diagnostic (ICD-10-PCS; 2018-08-31)
PROC: 05HM33Z Insertion of Infusion Device into Right Internal Jugular Vein, Percutaneous Approach (ICD-10-PCS; 2018-08-31)
PROC: 3E04328 Introduction of Oxazolidinones into Central Vein, Percutaneous Approach (ICD-10-PCS; 2018-08-31)
PROC: 5A09457 Assistance with Respiratory Ventilation, 24-96 Consecutive Hours, Continuous Positive Airway Pressure (ICD-10-PCS; 2018-09-04)
PROC: 0BCG8ZZ Extirpation of Matter from Left Upper Lung Lobe, Via Natural or Artificial Opening Endoscopic (ICD-10-PCS; 2018-09-06)
PROC: 5A1955Z Respiratory Ventilation, Greater than 96 Consecutive Hours (ICD-10-PCS; 2018-09-06)
PROC: 0BH17EZ Insertion of Endotracheal Airway into Trachea, Via Natural or Artificial Opening (ICD-10-PCS; 2018-09-06)
PROC: 0HD8XZZ Extraction of Buttock Skin, External Approach (ICD-10-PCS; 2018-09-11)
PROC: 0B113F4 Bypass Trachea to Cutaneous with Tracheostomy Device, Percutaneous Approach (ICD-10-PCS; principal; 2018-09-14 10:45)
DX: A41.9 Sepsis, unspecified organism (principal); L89.153 Pressure ulcer of sacral region, stage 3; J69.0 Pneumonitis due to inhalation of food and vomit; J96.02 Acute respiratory failure with hypercapnia; J96.01 Acute respiratory failure with hypoxia; R65.21 Severe sepsis with septic shock; R53.2 Functional quadriplegia; N17.0 Acute kidney failure with tubular necrosis; I50.31 Acute diastolic (congestive) heart failure; L89.323 Pressure ulcer of left buttock, stage 3; L89.313 Pressure ulcer of right buttock, stage 3; L89.213 Pressure ulcer of right hip, stage 3; L89.223 Pressure ulcer of left hip, stage 3; L03.115 Cellulitis of right lower limb; E87.1 Hypo-osmolality and hyponatremia; I42.9 Cardiomyopathy, unspecified; E44.1 Mild protein-calorie malnutrition; J98.11 Atelectasis; J44.0 Chronic obstructive pulmonary disease with (acute) lower respiratory infection; I45.2 Bifascicular block; Z99.11 Dependence on respirator [ventilator] status; T17.890A Other foreign object in other parts of respiratory tract causing asphyxiation, initial encounter; I47.1 Supraventricular tachycardia; E87.4 Mixed disorder of acid-base balance; I31.3 Pericardial effusion (noninflammatory); L03.116 Cellulitis of left lower limb; F11.20 Opioid dependence, uncomplicated; J94.2 Hemothorax; R57.0 Cardiogenic shock; L89.891 Pressure ulcer of other site, stage 1; F12.10 Cannabis abuse, uncomplicated; I87.2 Venous insufficiency (chronic) (peripheral); D63.8 Anemia in other chronic diseases classified elsewhere; E87.5 Hyperkalemia; I45.10 Unspecified right bundle-branch block; I11.0 Hypertensive heart disease with heart failure; I27.29 Other secondary pulmonary hypertension; D69.6 Thrombocytopenia, unspecified; I50.82 Biventricular heart failure; I73.9 Peripheral vascular disease, unspecified; G89.4 Chronic pain syndrome; D50.9 Iron deficiency anemia, unspecified; M16.0 Bilateral primary osteoarthritis of hip; K59.00 Constipation, unspecified; L85.3 Xerosis cutis; E53.8 Deficiency of other specified B group vitamins; E55.9 Vitamin D deficiency, unspecified; E83.51 Hypocalcemia; E83.42 Hypomagnesemia; E87.6 Hypokalemia; F41.9 Anxiety disorder, unspecified; Z74.01 Bed confinement status; I25.10 Atherosclerotic heart disease of native coronary artery without angina pectoris; I95.81 Postprocedural hypotension; K57.30 Diverticulosis of large intestine without perforation or abscess without bleeding; I36.1 Nonrheumatic tricuspid (valve) insufficiency; T68.XXXA Hypothermia, initial encounter; F17.210 Nicotine dependence, cigarettes, uncomplicated; Z91.19 Patient's noncompliance with other medical treatment and regimen; Z88.0 Allergy status to penicillin; K21.9 Gastro-esophageal reflux disease without esophagitis; K29.70 Gastritis, unspecified, without bleeding